=== PATIENT | female | born 1970 | race Caucasian/White ===

== ENCOUNTER 2022-12-18 12:50 | Outpatient (OUT) | payer MEDICARE, MEDICAID, SELFPAY ==
[2022-12-18 13:27] LABS: Basophils Percent Auto 0.7 % (0.2-2.0); Eosinophils Absolute Auto 0.2 10^3/uL (0.0-0.7); Eosinophils Percent Auto 3.6 % (0.9-7.0); Hematocrit 42.9 % (36.0-48.0); Hemoglobin 14.2 g/dL (12.0-16.0); Immature Granulocytes Abs Auto 0.01 10^3/uL (0.00-0.03); Immature Granulocytes Pct Auto 0.2 % (0.0-0.5); Lymphocytes Absolute Auto 1.6 10^3/uL (1.2-3.8); Lymphocytes Percent Auto 28.4 % (20.5-60.0); Mean Corpuscular HGB Conc 33.1 g/dL (29.9-35.2); Mean Corpuscular Hemoglobin 30.2 pg (26.7-34.0); Mean Corpuscular Volume 91.3 fL (81.0-99.0); Mean Platelet Volume 8.9 fL (9.5-13.5); Monocytes Absolute Auto 0.5 10^3/uL (0.3-0.8); Monocytes Percent Auto 9.1 % (1.7-12.0); Neutrophils Absolute Auto 3.2 10^3/uL (1.4-6.5); Platelet Count 298 10^3/uL (150-450); Red Cell Distribution Width 13.6 % (11.0-15.0); White Blood Count 5.5 10^3/uL (4.0-11.0)
[2022-12-18 13:58] LABS: Estimated Average Glucose 120 mg/dL; Glycohemoglobin A1C 5.8 % (4.5-6.2)
[2022-12-18 14:11] LABS: Alanine Aminotransferase 27 U/L (14-59); Albumin Level 3.6 g/dL (3.4-5.0); Alkaline Phosphatase 127 U/L (46-116); Anion Gap 9.4; Aspartate Amino Transferase 23 U/L (15-37); BUN Creatinine Ratio 11.4; Bilirubin Total 0.4 mg/dL (0.2-1.0); Calcium 9.4 mg/dL (8.5-10.1); Carbon Dioxide 28.5 mmol/L (21.0-32.0); Chloride 107 mmol/L (98-107); Chol HDL Ratio 3.4; Cholesterol 135 mg/dL (<=200); Estimated GFR (African America >60 (>=60); Estimated GFR (Non-African Ame >60 (>=60); Globulin 3.6 g/dL; Glucose 123 mg/dL (74-106); HDL Cholesterol 40 mg/dL (40-60); LDL Cholesterol Calculated 66.4 mg/dL; Potassium 3.9 mmol/L (3.5-5.1); Sodium 141 mmol/L (136-145); Thyroid Stimulating Hormone 1.416 uIU/mL (0.358-3.740); Total Protein 7.2 g/dL (6.4-8.2); Triglycerides 143 mg/dL (<=150); VLDL CHOLESTEROL 28.6 mg/dL
== END 2022-12-18 12:51 | disposition home or self-care (01) ==
LOC: LAB 12:56
PROVIDERS: PCP Family Medicine; Visit Provider Family Medicine
DX: E78.2 Mixed hyperlipidemia (principal); R73.09 Other abnormal glucose; D50.9 Iron deficiency anemia, unspecified; R53.83 Other fatigue
CPT/HCPCS: 36415; 80053; 80061; 82728; 83036; 84443; 85025

== ENCOUNTER 2023-03-18 13:52 | Emergency (ER) | payer MEDICARE, MEDICAID, SELFPAY ==
--- NOTE | 2023-03-18 13:57 | ECG_ITS ---
The [facility] Test Date: 2023-03-18 Pat Name: ALEXA FERNANDEZ Department: Room: - Gender: Female Camera Prototyping Engineer: : 1970 Requested By: BENSON ROMERO Order Number: [id number] Reading MD: ALICIA CUEVAS Measurements Intervals [place] Rate: 70 P: 60 HI: 170 QRS: 73 QRSD: 88 T: 52 QT: 400 QTc: 421 Interpretive Statements 1100 Sinus rhythm 3114 Cannot rule out anterior myocardial infarction, age undetermined 9150 abnormal ECG No previous ECG available for comparison Electronically Signed On 03-19-2023 7:13:35 EST by ALICIA CUEVAS
[2023-03-18 14:01] VITALS: BP 190/97; PULSE 70; RESP 18; TEMP 36.6; O2SAT 96; BMI 36.2
--- NOTE | 2023-03-18 14:04 | ED.CHESTPAI1 ---
HPI - Chest Pain General Chief Complaint: Chest Pain Stated Complaint: CHEST PRESSURE Time Seen by Provider: 03/18/23 13:57 History of Present Illness HPI narrative: Patient is a 52-year-old female who presents to the emergency department for the evaluation of intermittent chest pressure for over 2 to 3 weeks. She has a history of previous MA, coronary artery disease with 2 previous stents placed. She states she sees Dr. Melendez at [facility] for [facility] cardiology. She has an appointment tomorrow. She denies any new or different symptoms today, but when she went to see her primary care provider she states she was instructed to come to the ER. She does feel short of breath. She states she has a squeezing pain in the anterior sternum, it is mild at this time but occasionally becomes more severe. She has not had any fevers, chills, cough, congestion, vomiting, diarrhea. Related Data Allergies Allergy/AdvReac Type Severity Reaction Status Date / Time lisinopril AdvReac Intermediate Verified 03/18/23 14:01 Review of Systems ROS Constitutional Denies: fever or chills Ears, nose, mouth, and throat Denies: throat pain or nasal congestion Cardiovascular Reports: chest pain Respiratory Reports: shortness of breath; Denies: cough Gastrointestinal Denies: abdominal pain, nausea, vomiting or diarrhea Genitourinary Denies: painful urination Musculoskeletal Denies: back pain Integumentary/Breast Denies: rash Neurological Denies: headache PFSH PFSH Social History Smoking status: Never smoker Exam Narrative Exam Narrative: Gen.: Awake, alert, in no distress Head: Normocephalic, atraumatic ENT: Moist mucous membranes Respiratory: No respiratory distress, lungs clear bilaterally Cardio: Regular rate and rhythm Gastrointestinal: Abdomen is soft, nondistended and nontender to palpation Extremities: Moves extremities equally, no pedal edema Psych: Normal mood and affect Neuro: No focal neuro deficit Skin: Warm, dry, intact Constitutional Vital Signs, click to edit/add: Last Vital Signs Temp 97.8 F 03/18/23 14:01 Pulse 70 03/18/23 14:01 Resp 18 03/18/23 14:01 BP 162/90 H 03/18/23 14:34 Pulse Ox 96 03/18/23 14:01 O2 Del Method Room Air 03/18/23 14:01 Course Vital Signs Vital signs: Vital Signs Temperature 97.8 F 03/18/23 14:01 Pulse Rate 70 03/18/23 14:01 Respiratory Rate 18 03/18/23 14:01 Blood Pressure 190/97 H 03/18/23 14:01 Pulse Oximetry 96 03/18/23 14:01 Oxygen Delivery Method Room Air 03/18/23 14:01 Temperature 97.8 F 03/18/23 14:01 Pulse Rate 70 03/18/23 14:01 Respiratory Rate 18 03/18/23 14:01 Blood Pressure 162/90 H 03/18/23 14:34 Pulse Oximetry 96 03/18/23 14:01 Oxygen Delivery Method Room Air 03/18/23 14:01 MDM - Chest Pain MDM Narrative Medical decision making narrative: Patient was treated with aspirin and sublingual nitro in the ER, nitroglycerin improved her blood pressure but she did not have any change in the chest tightness. This has been ongoing intermittently since February. She had 2 normal troponins in the ER. I discussed the case with her waist fitter, Dr. Mack at [facility]. He recommended that the patient can be discharged home to follow-up tomorrow. Return to the emergency department if symptoms change or worsen. Patient reevaluated by attending physician prior to discharge. Medical Records Data Attestation: I reviewed the patient's medical records. Lab Data Attestation: I reviewed the patient's lab results. Labs: Lab Results 03/18/23 Range/Units 14:10 WBC 6.9 (4.0-11.0) 10^3/uL RBC 5.02 (4.20-5.40) 10^6/uL Hgb 14.7 (12.0-16.0) g/dL Hct 45.2 (36.0-48.0) % MCV 90.0 (81.0-99.0) fL MCH 29.3 (26.7-34.0) pg MCHC 32.5 (29.9-35.2) g/dL RDW 12.9 (11.0-15.0) % Plt Count 306 (150-450) 10^3/uL MPV 9.3 L (9.5-13.5) fL Neut % (Auto) 55.9 (43.0-75.0) % Lymph % (Auto) 28.7 (20.5-60.0) % Kleberg % (Auto) 10.6 (1.7-12.0) % Eos % (Auto) 4.1 (0.9-7.0) % Baso % (Auto) 0.6 (0.2-2.0) % Neut # (Auto) 3.9 (1.4-6.5) 10^3/uL Lymph # (Auto) 2.0 (1.2-3.8) 10^3/uL Kleberg # (Auto) 0.7 (0.3-0.8) 10^3/uL Eos # (Auto) 0.3 (0.0-0.7) 10^3/uL Baso # (Auto) 0.0 (0.0-0.1) 10^3/uL Abs Immat Gran (auto) 0.01 (0.00-0.03) 10^3/uL Imm/Tot Granulo (auto) 0.1 (0.0-0.5) % PT 9.7 (9.0-11.6) sec INR <0.93 Sodium 140 (136-145) mmol/L Potassium 3.4 L (3.5-5.1) mmol/L Chloride 105 (98-107) mmol/L Carbon Dioxide 26.7 (21.0-32.0) mmol/L Anion Gap 11.7 BUN 7.0 (7.0-18.0) mg/dL Creatinine 0.81 (0.55-1.02) mg/dL Est GFR ( Amer) >60 (>=60) Est GFR (Non-Af Amer) >60 (>=60) BUN/Creatinine Ratio 8.6 Glucose 122 H (74-106) mg/dL Calcium 9.1 (8.5-10.1) mg/dL Total Bilirubin 0.5 (0.2-1.0) mg/dL AST 13 L (15-37) U/L ALT 30 (14-59) U/L Alkaline Phosphatase 121 H (46-116) U/L Troponin I High Sens 6.0 (4.0-51.3) pg/mL NT-Pro-B Natriuret Pep 105.0 (<=900.0) pg/mL Total Protein 7.8 (6.4-8.2) g/dL Albumin 3.7 (3.4-5.0) g/dL Globulin 4.1 g/dL Albumin/Globulin Ratio 0.9 Imaging Data Chest x-ray: Attestation: I have reviewed the pertinent imaging results. Radiologist's impression: Procedure: XR chest 1V EXAMINATION: XR chest 1V HISTORY: Fever and bodyaches COMPARISON: None. TECHNIQUE: Portable chest FINDINGS: The lung parenchyma is free of consolidation or infiltrate. No pneumothorax or pleural effusion. The cardiac, mediastinal and hilar contours are normal. The visualized osseous structures exhibit no gross abnormality. IMPRESSION: No acute cardiopulmonary abnormality. Electronically authenticated by: WILLIE SEXTON Date: 03/18/2023 15:09 ECG Data Attestation: I personally reviewed and interpreted this ECG as follows: (Normal sinus rhythm at a rate of 70, no acute ST elevation or ectopy. EKG reviewed by attending physician) ECG interpretation date: 03/18/23 ECG interpretation time: 14:19 Heart Score History: Moderately Suspicious ECG: Normal Age: >45-<65 years Risk Factors: >3 Risk Factors/ HX of CAD:2 Troponin: <Normal Limit Total Heart Score Recommendations & Risks:: 4 Discharge Plan Discharge Chief Complaint: Chest Pain Clinical Impression: Chest pain Patient Disposition: Home, Self-Care Time of Disposition Decision: 16:16 Condition: Good Instructions: Chest Pain (ED) Additional Instructions: Follow-up with your waist fitter tomorrow as scheduled Stand Alone Forms: Portal Instructions Referrals: Analilia Young MD [Primary Care Provider] - 1 week
--- NOTE | 2023-03-18 14:15 | XR_ITS ---
The [address] [address] Patient Name: ALEXA FERNANDEZ MRN: [id number] date: 1970 Sex: F Assigned Patient Location: ED.MAIN Current Patient Location: ER Accession/Order Number: [id number] Exam Date: 03/18/2023 14:10 Report Date: 03/18/2023 15:07 At the request of: DEBBIE WAGNER Procedure: XR chest 1V EXAM: XR chest 1V HISTORY: Chest pain COMPARISON: None. TECHNIQUE: Single view of the chest FINDINGS: Heart size normal. No focal consolidation, pleural effusion, pulmonary congestion or pneumothorax. XR/XR chest 1V IMPRESSION: No acute findings. Electronically authenticated by: SAAD CRUZ Date: 03/18/2023 15:07
[2023-03-18] MEDS: ASPIRIN 81 MG TAB.CHEW 162 MG PO (14:31)
[2023-03-18] MEDS: NITROGLYCERIN 0.4 MG BOTTLE PO (14:32)
[2023-03-18 14:34] VITALS: BP 162/90
[2023-03-18 14:39] LABS: Basophils Percent Auto 0.6 % (0.2-2.0); Eosinophils Absolute Auto 0.3 10^3/uL (0.0-0.7); Eosinophils Percent Auto 4.1 % (0.9-7.0); Hematocrit 45.2 % (36.0-48.0); Hemoglobin 14.7 g/dL (12.0-16.0); Immature Granulocytes Abs Auto 0.01 10^3/uL (0.00-0.03); Immature Granulocytes Pct Auto 0.1 % (0.0-0.5); Lymphocytes Percent Auto 28.7 % (20.5-60.0); Mean Corpuscular HGB Conc 32.5 g/dL (29.9-35.2); Mean Corpuscular Hemoglobin 29.3 pg (26.7-34.0); Mean Platelet Volume 9.3 fL (9.5-13.5); Monocytes Absolute Auto 0.7 10^3/uL (0.3-0.8); Monocytes Percent Auto 10.6 % (1.7-12.0); Neutrophils Absolute Auto 3.9 10^3/uL (1.4-6.5); Neutrophils Percent Auto 55.9 % (43.0-75.0); Platelet Count 306 10^3/uL (150-450); Red Blood Count 5.02 10^6/uL (4.20-5.40); Red Cell Distribution Width 12.9 % (11.0-15.0); White Blood Count 6.9 10^3/uL (4.0-11.0)
[2023-03-18 15:00] LABS: Prothrombin Time 9.7 sec (9.0-11.6)
[2023-03-18 15:02] LABS: Alanine Aminotransferase 30 U/L (14-59); Albumin Globulin Ratio 0.9; Albumin Level 3.7 g/dL (3.4-5.0); Alkaline Phosphatase 121 U/L (46-116); Anion Gap 11.7; Aspartate Amino Transferase 13 U/L (15-37); BUN Creatinine Ratio 8.6; Bilirubin Total 0.5 mg/dL (0.2-1.0); Calcium 9.1 mg/dL (8.5-10.1); Carbon Dioxide 26.7 mmol/L (21.0-32.0); Chloride 105 mmol/L (98-107); Estimated GFR (African America >60 (>=60); Estimated GFR (Non-African Ame >60 (>=60); Globulin 4.1 g/dL; Glucose 122 mg/dL (74-106); Potassium 3.4 mmol/L (3.5-5.1); Sodium 140 mmol/L (136-145); Total Protein 7.8 g/dL (6.4-8.2)
[2023-03-18 15:17] LABS: INR <0.93
[2023-03-18 16:12] LABS: Troponin I High Sensitivity 7.2 pg/mL (4.0-51.3)
== END 2023-03-18 16:29 | disposition home or self-care (01) ==
PROVIDERS: Physician Assistant; Emergency Provider Emergency Medicine Emergency Medical Services; PCP Family Medicine
DX: R07.9 Chest pain, unspecified (principal); I25.2 Old myocardial infarction; Z95.5 Presence of coronary angioplasty implant and graft; I25.10 Atherosclerotic heart disease of native coronary artery without angina pectoris; R06.02 Shortness of breath
CPT/HCPCS: 36415; 71045; 80053; 83880; 84484; 85025; 85610; 93005; 99285

== ENCOUNTER 2023-08-31 09:22 | Outpatient (OUT) | payer MEDICARE, MEDICAID, SELFPAY ==
--- NOTE | 2023-08-31 09:41 | XR_ITS ---
The [place] [id number] Patient Name: ALEXA FERNANDEZ MRN: [id number] date: 1970 Sex: F Assigned Patient Location: LAB Current Patient Location: LAB Accession/Order Number: [id number] Exam Date: 08/31/2023 09:45 Report Date: 08/31/2023 12:27 At the request of: BENSON ROMERO Procedure: XR knee LT 4V PROCEDURE: XR knee LT 4V HISTORY: M25.562 Left knee pain ; numbness lateral aspect of kidney for 6 months; no known injury COMPARISON: None. FINDINGS: BONES:No fracture, acute abnormality, or significant arthropathy. SOFT TISSUES:No visible soft tissue swelling. EFFUSION:None visible. OTHER: Negative. XR/XR knee LT 4V IMPRESSION: 1. Normal examination. Electronically authenticated by: JUSTUS HAMILTON Date: 08/31/2023 12:27
[2023-08-31 09:46] LABS: Basophils Percent Auto 0.6 % (0.2-2.0); Eosinophils Absolute Auto 0.2 10^3/uL (0.0-0.7); Eosinophils Percent Auto 3.5 % (0.9-7.0); Hematocrit 42.2 % (36.0-48.0); Hemoglobin 13.6 g/dL (12.0-16.0); Immature Granulocytes Abs Auto 0.01 10^3/uL (0.00-0.03); Immature Granulocytes Pct Auto 0.2 % (0.0-0.5); Lymphocytes Absolute Auto 1.4 10^3/uL (1.2-3.8); Lymphocytes Percent Auto 26.3 % (20.5-60.0); Mean Corpuscular HGB Conc 32.2 g/dL (29.9-35.2); Mean Corpuscular Hemoglobin 29.1 pg (26.7-34.0); Mean Corpuscular Volume 90.2 fL (81.0-99.0); Mean Platelet Volume 9.1 fL (9.5-13.5); Monocytes Absolute Auto 0.5 10^3/uL (0.3-0.8); Monocytes Percent Auto 9.9 % (1.7-12.0); Neutrophils Absolute Auto 3.1 10^3/uL (1.4-6.5); Neutrophils Percent Auto 59.5 % (43.0-75.0); Platelet Count 270 10^3/uL (150-450); Red Blood Count 4.68 10^6/uL (4.20-5.40); Red Cell Distribution Width 13.5 % (11.0-15.0); White Blood Count 5.1 10^3/uL (4.0-11.0)
[2023-08-31 10:44] LABS: Alanine Aminotransferase 28 U/L (14-59); Albumin Globulin Ratio 0.9; Albumin Level 3.4 g/dL (3.4-5.0); Alkaline Phosphatase 120 U/L (46-116); Anion Gap 10.3; Aspartate Amino Transferase 18 U/L (15-37); BUN Creatinine Ratio 11.8; Bilirubin Total 0.4 mg/dL (0.2-1.0); Carbon Dioxide 28.5 mmol/L (21.0-32.0); Chloride 108 mmol/L (98-107); Chol HDL Ratio 3.1; Cholesterol 135 mg/dL (<=200); Estimated GFR (African America >60 (>=60); Estimated GFR (Non-African Ame >60 (>=60); Globulin 3.7 g/dL; Glucose 125 mg/dL (74-106); HDL Cholesterol 43 mg/dL (40-60); LDL Cholesterol Calculated 65.8 mg/dL; Potassium 3.8 mmol/L (3.5-5.1); Sodium 143 mmol/L (136-145); Thyroid Stimulating Hormone 1.947 uIU/mL (0.358-3.740); Total Protein 7.1 g/dL (6.4-8.2); Triglycerides 131 mg/dL (<=150); VLDL CHOLESTEROL 26.2 mg/dL
== END 2023-08-31 09:23 | disposition home or self-care (01) ==
LOC: LAB 09:23
PROVIDERS: PCP Family Medicine; Visit Provider Family Medicine
DX: R53.83 Other fatigue (principal); I10 Essential (primary) hypertension; E78.00 Pure hypercholesterolemia, unspecified; M25.562 Pain in left knee
CPT/HCPCS: 36415; 73564; 80053; 80061; 84443; 85025

== ENCOUNTER 2024-03-14 10:33 | Outpatient (OUT) | payer MEDICARE, MEDICAID, SELFPAY ==
[2024-03-14 11:00] LABS: Basophils Percent Auto 0.7 % (0.2-2.0); Eosinophils Absolute Auto 0.2 10^3/uL (0.0-0.7); Eosinophils Percent Auto 3.6 % (0.9-7.0); Hematocrit 46.8 % (36.0-48.0); Hemoglobin 15.4 g/dL (12.0-16.0); Immature Granulocytes Abs Auto 0.01 10^3/uL (0.00-0.03); Immature Granulocytes Pct Auto 0.2 % (0.0-0.5); Lymphocytes Absolute Auto 1.7 10^3/uL (1.2-3.8); Lymphocytes Percent Auto 31.3 % (20.5-60.0); Mean Corpuscular HGB Conc 32.9 g/dL (29.9-35.2); Mean Corpuscular Hemoglobin 30.1 pg (26.7-34.0); Mean Corpuscular Volume 91.6 fL (81.0-99.0); Monocytes Absolute Auto 0.6 10^3/uL (0.3-0.8); Neutrophils Percent Auto 54.2 % (43.0-75.0); Platelet Count 307 10^3/uL (150-450); Red Blood Count 5.11 10^6/uL (4.20-5.40); Red Cell Distribution Width 13.2 % (11.0-15.0); White Blood Count 5.5 10^3/uL (4.0-11.0)
[2024-03-14 11:09] LABS: Creatinine Urine Random 505.77 mg/dL (20.00-300.00); Microalbum Creatinine Ratio Ur 4.9 mg/g (0.0-29.9); Microalbumin Urine Random 2.5 mg/dL (<=30.0)
[2024-03-14 11:13] LABS: Estimated Average Glucose 134 mg/dL; Glycohemoglobin A1C 6.3 % (4.5-6.2)
[2024-03-14 12:06] LABS: Alanine Aminotransferase 27 U/L (14-59); Albumin Globulin Ratio 0.9; Albumin Level 3.8 g/dL (3.4-5.0); Alkaline Phosphatase 136 U/L (46-116); Anion Gap 9.4; Aspartate Amino Transferase 19 U/L (15-37); BUN Creatinine Ratio 9.3; Bilirubin Total 0.8 mg/dL (0.2-1.0); Calcium 9.6 mg/dL (8.5-10.1); Chloride 107 mmol/L (98-107); Estimated GFR (African America >60 (>=60 mL/min/1.73m^2); Estimated GFR (Non-African Ame 54 (>=60 mL/min/1.73m^2); Glucose 129 mg/dL (74-106); Potassium 3.4 mmol/L (3.5-5.1); Sodium 145 mmol/L (136-145); Total Protein 7.8 g/dL (6.4-8.2)
== END 2024-03-14 10:34 | disposition home or self-care (01) ==
LOC: LAB 10:35
PROVIDERS: PCP Family Medicine; Visit Provider Family Medicine
DX: R73.09 Other abnormal glucose (principal); R14.0 Abdominal distension (gaseous); I10 Essential (primary) hypertension
CPT/HCPCS: 36415; 80053; 82043; 82570; 83036; 84443; 85025

== ENCOUNTER 2024-12-08 11:32 | Emergency (ER) | payer MEDICARE, MEDICAID, SELFPAY ==
--- OUTSIDE RECORDS SUMMARY | 2024-12-08 11:50 | XMS_ITS | Clinical Summary ---
Author Organization [facility] Address [address] [place] [address] Care Team Providers Care Supervisor Braiding Name Role Phone Analilia Young MD Primary Care Provider [phone] Social History Tobacco Use Types Packs/Day Years Used Date Smoking Tobacco: Never Assessed Comments Unknown Sex and Gender Information Value Date Recorded Sex Assigned at Not on file Legal Sex Female 11:40 PM EDT Gender Identity Not on file Sexual Orientation Not on file Last Filed Vital Signs Vital Sign Reading Time Taken Comments Blood Pressure 192/110 12/17/2021 12:00 PM EDT Pulse - - Temperature - - Respiratory Rate - - Oxygen Saturation - - Inhaled Oxygen Concentration - - Weight 91.2 kg (201 lb) 12/17/2021 12:00 PM EDT Height 162.6 cm (5' 4 ) 12/17/2021 12:00 PM EDT Body Mass Index 34.5 12/17/2021 12:00 PM EDT Plan of Treatment Health Maintenance Due Date Last Done Comments CT Colonography 1972 Colonoscopy 1972 Colorectal Cancer Screening 1970 FIT-DNA 1972 FIT 1972 FOBT 1972 Sigmoidoscopy 1972 Pap Smear 1993 Cervical Cancer Screening 2002 HPV/Cotest 2002 Mammogram 2012 Influenza Vaccine (#1) 2024 03/01/2023 Insurance MEDICARE Care Teams Supervisor Braiding Relationship Specialty Start Date End Date Analilia Young MD PCP - General Family Medicine 03/07/24
--- OUTSIDE RECORDS SUMMARY | 2024-12-08 11:50 | XMS_ITS | Encounter Summary ---
Author Organization [facility] Address [address] [place] [address] Phone Care Team Providers Care Senior Net Programmer Name Role Phone Susanne Keen MD Primary Care Provider [phone] Encounter Details Date Type Department Care Team (Late st Contact Info) Description 10/21/2008 Scanned Document [facility] [address] [place] [id number] Scanning, Generic Provider Social History Tobacco Use Types Packs/Day Years Used Date Smoking Tobacco: Never Assessed Comments Unknown Sex and Gender Information Value Date Recorded Sex Assigned at Not on file Legal Sex Female 2:25 PM EST Gender Identity Not on file Sexual Orientation Not on file documented as of this encounter Plan of Treatment Upcoming Encounters Date Type Department Care Team (Late st Contact Info) Description 12/28/2024 9:45 AM EDT Office Visit [facility] Medical Office [address] [place] [address] [place] [address] [facility] [address], [facility] [address] [place] [address] documented as of this encounter Visit Diagnoses Not on filedocumented in this encounter Care Teams Senior Net Programmer Relationship Specialty Start Date End Date Susanne Keen MD [address] [facility] Susanne Keen MD [facility] [place] [address] PCP - General 04/05/99 documented as of this encounter
--- OUTSIDE RECORDS SUMMARY | 2024-12-08 11:50 | XMS_ITS | Patient Health Record ---
Author Organization [facility] [place] Address [address] [place] [address] Care Team Providers Care Hotel General Manager Name Role Phone Susanne Keen MD Primary Care Provider Unavailabl e Reason For Referral No Information Medications Medication SIG (Take, Route, Frequency, Duration) Notes Start Date End Date Status Aspirin 81 MG 1 tablet Orally Daily Active cloNIDine HCl 0.1 MG 1 tablet Orally Onc e a day Active Furosemide 20 MG 1 tablet Orally Once a day Active Metoprolol Tartrate 100 MG 1 tablet with food Orally Twice a day Active NIFEdipine ER Osmotic Release 90 MG 1 tablet Orally BID Active Atorvastatin Calcium 20 MG 1 tablet Oral ly at bedtime Active Clopidogrel Bisulfate 75 MG 1 tablet Ora lly Once a day Active Klor-Con 10 10 MEQ 1 tablet with food Orally Daily Active Citalopram Hydrobromide 20 MG 1 tablet Orally Once a day Active Losartan Potassium 100 MG 1 tablet Orall y Once a day Active Ferrous Sulfate 324 (65 Fe) MG 1 tablet Orally Daily Active Spironolactone 25 MG 1 tablet Orally Onc e a day Active cloNIDine 0.2 MG/24HR 1 patch to skin Transdermal Active Folic Acid 1 MG 1 tablet Orally Once a day Active Vitamin D3 15592 UNIT 1 tablet Orally On ce a day Active Social History Tobacco Use: Social History Observation Description Date Details (start date - stop date) Never Smoker NA - NA Tobacco Use/Smoking Question Answer Notes Patient is a nonsmoker Alcohol Screen (Audit-C) Question Answer Notes Did you have a drink containing alcohol in the p ast year? No Points 0 Interpretation Negative Problems Problem Type SNOMED Code ICD Code Onset Dates Problem Status W/U Status Risk Notes Problem Right ovarian cyst ([id number] 59973) Right ovarian cyst (N83.201) Active confirmed Plan Of Treatment No Information Insurance Providers Payer Name Payer Address Payer Phone Subscriber Number Group Number Insured Name Patient Relationship to Insured Coverage Start Date Coverage End Date [employer] [place] [address] [place], [place] [id number] Nel Giron Self - patient is the insured 9 Medical (General) History Medical History History ICD Code HTN Anemia History of Twin gestation Depression & Anxiety Surgical History Surgery Date(Month/Year) Colonoscopy 08/2015 Cholecystectomy 07/2014 NASRA with Ovarian Preservation 10/2016 Tubal Ligation
--- OUTSIDE RECORDS SUMMARY | 2024-12-08 11:50 | XMS_ITS | Patient Health Record ---
Author Organization [facility] Address [address] [place] [address] Care Team Providers Care Hospitality Specialist Name Role Phone Dr. Santos Ramon Primary Care Provider [phone] Allergies Allergen (clinical drug ingredient) Drug/Non Drug Allergy documented on EMR Reaction Allergy Type Onset Date Status lisinopril Lisinopril Unknown Drug Allergy Activ e Reason For Referral No Information Medications Medication SIG (Take, Route, Frequency, Duration) Notes Start Date End Date Status Ibuprofen 800 MG 1 tablet with food o r milk as needed Orally Three times a day 12/08/2024 Active Amoxicillin 875 MG 1 tablet Orally Twic e a day; Duration: 5 day(s) 12/08/2024 12/13/2024 Active Ibuprofen 800 MG 1 tablet with food o r milk as needed Orally Three times a day 10/02/2021 Unknown Plavix 75 MG 1 tablet Orally Once a day Unknown Atenolol 25 MG 1 tablet Orally Once a day Unknown cloNIDine 0.1 MG/24HR 1 patch to skin Transdermal Unknown Valsartan 4 MG/ML 5 mL Orally Twice a day Unknown Encounters Encounter Location Date Provider Diagnosis [address] [address] 12/02/2024 Santos Ramon Encounter for den denis examination and cleaning with abnormal findings Z01.21 ; Other dental procedure status Z98.818 ; Disturbances in tooth eruption K00.6 ; Acute gingivitis, plaque induced K05.00 and Dental caries on pit and fissure surface penetrating into dentin K02.52 [facility] [address] [place] [address] 12/08/2024 Santos Ramon Cracked tooth K03 .81 Assessments Encounter Date Diagnosis (ICD Code) Assessment Notes Treatment Notes Treatment Clinical Notes Section Notes 12/02/2024 Encounter for dental examination and cleaning with abnormal findings (ICD-10 - Z01.21) 12/08/2024 Cracked tooth (ICD-10 - K03.81) 12/02/2024 Other dental procedure status (ICD-10 - Z98.818) 12/02/2024 Disturbances in tooth eruption (ICD-10 - K00.6) 12/02/2024 Acute gingivitis, plaque induced (ICD-10 - K05.00) 12/02/2024 Dental caries on pit and fissure surface penetrating into dentin (ICD-10 - K02.52) Plan Of Treatment Next Appt Details Provider Name:Santos Ramon, 0 04/18/2025 11:00:00 AM, [address], [place], [address], Provider Name:Claudia Anna, 04/23/2025 10:30:00 AM, [address], [place], [address], Insurance Providers Payer Name Payer Address Payer Phone Subscriber Number Group Number Insured Name Patient Relationship to Insured Coverage Start Date Coverage End Date [employer] [address] [place] [phone] [id number] ALEXA CHANEL Self - patient is the insured
--- OUTSIDE RECORDS SUMMARY | 2024-12-08 11:50 | XMS_ITS | Encounter Summary ---
Author Organization [facility] Address [address] [place] [address] Phone Care Team Providers Care Rn Circulating Name Role Phone Susanne Keen MD Primary Care Provider Encounter Details Date Type Department Care Team (Late st Contact Info) Description 09/16/2020 Orders Only [facility] [address] [place] [address] Conversion, Onbase Social History Tobacco Use Types Packs/Day Years [...] Description 12/28/2024 9:45 AM EDT Office Visit [facility] Medical Office Building [address] [place] [address] [address] [place] [address] [place] [address] [facility] [address], [facility] [address] [place], [place] [id number] Scheduled Orders Name Type Priority Associated Diagnoses Orde r Schedule OUTSIDE LAB SCAN Lab Ordered: 09/16/2020 documented as of this encounter Visit Diagnoses Not on filedocumented in this encounter Care Teams Rn Circulating Relationship Specialty Start Date End Date Susanne Keen MD [address] [facility] [place] [address] PCP - General 04/05/99 documented as of this encounter
--- OUTSIDE RECORDS SUMMARY | 2024-12-08 11:50 | XMS_ITS | Encounter Summary ---
Author Organization [facility] Address [address] [place] [address] Phone Care Team Providers Care Veneer Stock Layer Name Role Phone Susanne Keen MD Primary Care Provider [phone] Encounter Details Date Type Department Care Team (Late st Contact Info) Description 05/02/2009 Scanned Document [facility] [address] [place] [phone] Scanning, Generic Provider Social History Tobacco Use [...] 12/28/2024 9:45 AM EDT Office Visit [facility] Medical Office [address] [place] [address] [place] [address] [facility] [address], [facility] [address] [place] [address] documented as of this encounter Visit Diagnoses Not on filedocumented in this encounter Care Teams Veneer Stock Layer Relationship Specialty Start Date End Date Susanne Keen MD [address] [facility] Susanne Keen MD [facility] [place] [address] PCP - General 04/05/99 documented as of this encounter
[2024-12-08 11:51] VITALS: BP 213/106; PULSE 72; TEMP 37.4; O2SAT 97; BMI 34.3
--- OUTSIDE RECORDS SUMMARY | 2024-12-08 11:51 | XMS_ITS | Encounter Summary ---
Author Organization [facility] Address [address] [place] [address] Care Team Providers Care Casket Trimmer Name Role Phone Unavailable Primary Care Provider Unavailabl e Reason for Visit * Reason Comments Med Refill Encounter Details Date Type Department Care Team (Late st Contact Info) Description 07/27/2022 Refill [facility] [address] [place] [address] Adalid Keyes MD [address] [facility] [place] [address] Social History Tobacco Use Types Packs/Day Years Used Date Smoking Tobacco: Never Assessed Comments Unknown Sex and Gender Information Value Date Recorded Sex Assigned at Not on file Legal Sex Female 11:32 PM EDT Gender Identity Not on file Sexual Orientation Not on file documented as of this encounter Plan of Treatment Not on file documented as of this encounter Visit Diagnoses Not on filedocumented in this encounter
--- OUTSIDE RECORDS SUMMARY | 2024-12-08 11:51 | XMS_ITS | Encounter Summary ---
Author Organization [facility] Address [address] [place] [address] Care Team Providers Care Restorer Lace And Textiles Name Role Phone Unavailable Primary Care Provider Unavailabl e Reason for Visit * Reason Comments Med Refill Encounter Details Date Type Department Care Team (Late st Contact Info) Description 06/17/2022 Refill [facility] [address] [place] [address] Adalid Keyes MD [address] [facility] [address] [facility] [place] [address] Essential (primary) hypertension Social History Tobacco Use Types Packs/Day Years Used Date Smoking Tobacco: Never Assessed Comments Unknown Sex and Gender Information Value Date Recorded Sex Assigned at Not on file Legal Sex Female 11:32 PM EDT Gender Identity Not on file Sexual Orientation Not on file documented as of this encounter Plan of Treatment Not on file documented as of this encounter Visit Diagnoses Diagnosis Essential (primary) hypertension Unspecified essential hypertension documented in this encounter
--- OUTSIDE RECORDS SUMMARY | 2024-12-08 11:51 | XMS_ITS | Encounter Summary ---
Author Organization [facility] Address [address] [place] [address] Phone Care Team Providers Care System Trainer Name Role Phone Susanne Keen MD Primary Care Provider [phone] Encounter Details Date Type Department Care Team (Late Contact Info) Description 08/15/2021 Orders Only [facility] [address] [place] [address] Conversion, Onbase Social History Tobacco Use Types [...] Description 12/28/2024 9:45 AM EDT Office Visit [facility] Medical Office Building [address] [place] [address] [address] [place] [address] [place] [address], [facility] [address] [place], [place] [phone] Scheduled Orders Name Type Priority Associated Diagnoses Orde r Schedule OUTSIDE LAB SCAN Lab Ordered: 08/15/2021 OUTSIDE LAB SCAN Lab Ordered: 08/15/2021 documented as of this encounter Visit Diagnoses Not on filedocumented in this encounter Care Teams System Trainer Relationship Specialty Start Date End Date Susanne Keen MD [address] [facility] [place] [address] PCP - General 04/05/99 documented as of this encounter
--- OUTSIDE RECORDS SUMMARY | 2024-12-08 11:51 | XMS_ITS | Encounter Summary ---
Author Organization [facility] Address [address] [place] [address] Phone Care Team Providers Care Dramatic Director Name Role Phone Susanne Keen MD Primary Care Provider [phone] Encounter Details Date Type Department Care Team (Late Contact Info) Description 08/25/2021 Orders Only [facility] [address] [place] [address] Conversion, Onbase Social History Tobacco Use Types [...] 9:45 AM EDT Office Visit [facility] Medical Office Building [address] [place] [address] [address] [place] [address] [place] [address] [facility] [address], [facility] [address] [place], [place] [phone] Scheduled Orders Name Type Priority Associated Diagnoses Orde r Schedule OUTSIDE LAB SCAN Lab Ordered: 08/25/2021 OUTSIDE LAB SCAN Lab Ordered: 08/25/2021 documented as of this encounter Visit Diagnoses Not on filedocumented in this encounter Care Teams Dramatic Director Relationship Specialty Start Date End Date Susanne Keen MD [address] [facility] [place] [address] PCP - General 04/05/99 documented as of this encounter
--- OUTSIDE RECORDS SUMMARY | 2024-12-08 11:51 | XMS_ITS | Clinical Summary ---
Author Organization [facility] Address [address] [place] [address] Care Team Providers Care Resource Management Specialist Name Role Phone Unavailable Primary Care Provider Unavailabl e Social History Tobacco Use Types Packs/Day Years Used Date Smoking Tobacco: Never Assessed [place] Safety & Environment Answer Date Rec orded Fear of Current or Ex-Partner Not on file Emotionally Abused Not on file 05/27/2023 Physically Abused Not on file 05/27/2023 Sexually Abused Not on file 05/27/2023 Physically or Sexually Abused Not on file Comments Unknown Sex and Gender Information Value Date Recorded Sex Assigned at Not on file Legal Sex Female 11:32 PM EDT Gender Identity Not on file Sexual Orientation Not on file Last Filed Vital Signs Vital Sign Reading Time Taken Comments Blood Pressure 143/86 11/06/2020 3:15 PM EDT Pulse 83 04/29/2020 4:45 PM EST Temperature - - Respiratory Rate - - Oxygen Saturation 97% 11/06/2020 3:16 PM EDT Inhaled Oxygen Concentration - - Weight 95.3 kg (210 lb) 11/06/2020 3:15 PM EDT Height 162.6 cm (5' 4 ) 11/06/2020 3:11 PM EDT Body Mass Index 36.05 11/06/2020 3:11 PM EDT Plan of Treatment Health Maintenance Due Date Last Done Comments CT Colonography 1972 Colonoscopy 1972 Colorectal Cancer Screening 1972 FIT-DNA 1972 FIT 1972 FOBT 1972 Medicare Annual Wellness (AWV) 1972 Sigmoidoscopy 1972 Depression Screening 1984 Hepatitis B Vaccines (1 of 3 - 19+ 3-dose series) 1991 Pap Smear 1993 Adult Tetanus 1994 Cervical Cancer Screening 2002 HPV/Cotest 2002 Mammogram 2012 Zoster Vaccines (1 of 2) 2022 Influenza Vaccine (#1) 2024 HIB Vaccines Aged Out No longer eligi ble based on patient's age to complete this topic HPV Vaccines Aged Out No longer eligi ble based on patient's age to complete this topic IPV Vaccines Aged Out No longer eligi ble based on patient's age to complete this topic Meningococcal B Vaccine Aged Out No l onger eligible based on patient's age to complete this topic Meningococcal Vaccine Aged Out No cassandra franklin eligible based on patient's age to complete this topic Pneumococcal Vaccine: Pediat rics (0 to 5 Years) and At-Risk Patients (6 to 64 Years) Aged Out No longer eligible b ased on patient's age to complete this topic Rotavirus Vaccines Aged Out No longer eligible based on patient's age to complete this topic Insurance MEDICARE MEDICAID [id number]
--- OUTSIDE RECORDS SUMMARY | 2024-12-08 11:51 | XMS_ITS | Clinical Summary ---
Author Organization [facility] Address [address] [place] [address] Phone Care Team Providers Care Solid Waste Analyst Name Role Phone Susanne Keen MD Primary Care Provider Social History Tobacco Use Types Packs/Day Years Used Date Smoking Tobacco: Never Assessed Comments Unknown Sex and Gender Information Value Date Recorded Sex Assigned at Not on file Legal Sex Female 2:25 PM EST Gender Identity Not on file Sexual Orientation Not on file Last Filed Vital Signs Vital Sign Reading Time Taken Comments Blood Pressure 140/98 03/19/2021 9:13 AM EST Pulse 74 03/19/2021 8:57 AM EST Temperature - - Respiratory Rate - - Oxygen Saturation - - Inhaled Oxygen Concentration - - Weight 96.2 kg (212 lb) 03/19/2021 8:57 AM EST Height 162.6 cm (5' 4 ) 03/19/2021 8:57 AM EST Body Mass Index 36.39 03/19/2021 8:57 AM EST Plan of Treatment Upcoming Encounters Date Type Department Care Team (Late st Contact Info) Description 12/28/2024 9:45 AM EDT Office Visit [facility] Medical Office Building [address] [place] [address] [address] [place] [id number] [place] [address] [facility] [address] [employer], [place] [id number] Health Maintenance Due Date Last Done Comments CT Colonography 1972 Colonoscopy 1972 Colorectal Cancer Screening 1972 FIT-DNA (Cologuard) 1972 FIT 1972 HIV Screening 1972 Lipid Panel 1972 Medicare Annual Wellness Vis it (AWV) 1972 Sigmoidoscopy 1972 MMR Vaccines (1 of 1 - Stand ovidio series) 1973 Diabetes Screening 1990 Hepatitis C Screening 1990 Hepatitis B Vaccines (1 of 3 - 19+ 3-dose series) 1991 Cervical Cancer Screening 1993 HPV/Cotest 1993 Pap Smear 1993 DTaP/Tdap/Td Vaccines (1 - Tdap) 1994 Mammogram 2012 Pneumococcal Vaccine (1 of 1 - PCV) 2022 Zoster Vaccines (1 of 2) 2022 COVID-19 Vaccine (1 - 2023-2 5 season) 2024 Influenza Vaccine (#1) 2024 HIB Vaccines Aged Out No longer eligi ble based on patient's age to complete this topic HPV Vaccines Aged Out No longer eligi ble based on patient's age to complete this topic Hepatitis A Vaccines Aged Out No long er eligible based on patient's age to complete this topic IPV Vaccines Aged Out No longer eligi ble based on patient's age to complete this topic Meningococcal Vaccine Aged Out No cassandra franklin eligible based on patient's age to complete this topic Rotavirus Vaccines Aged Out No longer eligible based on patient's age to complete this topic Insurance MEDICARE PART A AND B MEDICAID Care Teams Solid Waste Analyst Relationship Specialty Start Date End Date Susanne Keen MD [address] Susanne [facility] [place] [place] [address] PCP - General 04/05/99
--- OUTSIDE RECORDS SUMMARY | 2024-12-08 11:51 | XMS_ITS | Encounter Summary ---
Author Organization [facility] Address [address] [place] [address] Phone Care Team Providers Care Grain Shipper Name Role Phone Susanne Keen MD Primary Care Provider [phone] Encounter Details Date Type Department Care Team (Late st Contact Info) Description 01/26/2008 Scanned Document [facility] [address] [place] [id number] Scanning, Generic Provider Social History Tobacco Use [...] Description 12/28/2024 9:45 AM EDT Office Visit [facility] Medical Office [address] [place] [address] [place] [address] [facility] [address], [facility] [address] [place] [address] documented as of this encounter Visit Diagnoses Not on filedocumented in this encounter Care Teams Grain Shipper Relationship Specialty Start Date End Date Susanne Keen MD [address] [facility] Susanne Keen MD [facility] [place] [place] [address] PCP - General 04/05/99 documented as of this encounter
--- OUTSIDE RECORDS SUMMARY | 2024-12-08 11:56 | XMS_ITS | CCD ---
Author Organization [facility] Care Team Providers Care Homebirth Midwife Name Role Phone DARIUSZ KEEN Primary Care Unavailable UNKNOWN, PROVIDER Attending Unavailable UNKNOWN, PROVIDER Admitting Unavailable KEEN, DARIUSZ Referring Unavailable KEEN, DARIUSZ Referring Unavailable KEEN, DARIUSZ Primary Care Unavailable ERIN HILARIO Attending Unavailable GURPREET PASTOR Admitting Unavailable [facility] Procedure Practitioner Unavailab ESA Cosme Surgeon Unavailable [facility] Procedure Practitioner Unavailab YOCASTA Phillip Surgeon Unavailable Dariusz Keen Unavailable Unavailable Unavailable DARIUSZ KEEN Primary Care Physician [phone] KEEN ., DR DARIUSZ West Attending Unavailable KEEN ., DR DARIUSZ West Consulting Unavailable KEEN ., DR DARIUSZ West Primary Care Unavailable KEEN ., DR DARIUSZ West Admitting Unavailable KEEN ., DR DARIUSZ West Primary Care Unavailable KEEN ., DR DARIUSZ West Attending Unavailable KEEN ., DR DARIUSZ West Admitting Unavailable KEEN ., DR DARIUSZ West Consulting Unavailable MARIA L CURTIS Consulting Unavailable KEEN ., DR DARIUSZ West Primary Care Unavailable KEEN ., DR DARIUSZ West Attending Unavailable KEEN ., DR DARIUSZ West Admitting Unavailable KEEN ., DR DARIUSZ West Consulting Unavailable KEEN ., DR DARIUSZ West Attending Unavailable KEEN ., DR DARIUSZ West Admitting Unavailable KEEN ., DR DARIUSZ West Primary Care Unavailable ROBI ELDER Admitting Unavailable ROBI ELDER Attending Unavailable KEEN ., DR DARIUSZ West Primary Care Unavailable ROBI ELDER Consulting Unavailable JOVANA, DR ANIKA Grossman Attending Unavailable KEEN ., DR DARIUSZ West Primary Care Unavailable JOVAAN, DR ANIKA Grossman Consulting Unavailable DR ANIKA WHALEY Admitting Unavailable KEEN ., DR DARIUSZ West Attending Unavailable KEEN ., DR DARIUSZ West Admitting Unavailable KEEN ., DR DARIUSZ West Consulting Unavailable KEEN ., DR DARIUSZ West Primary Care Unavailable KEEN ., DR DARIUSZ West Attending Unavailable KEEN ., DR DARIUSZ West Consulting Unavailable KEEN ., DR DARIUSZ West Primary Care Unavailable KEEN ., DR DARIUSZ West Admitting Unavailable KEEN ., DR DARIUSZ West Attending Unavailable KEEN ., DR DARIUSZ West Primary Care Unavailable KEEN ., DR DARIUSZ West Consulting Unavailable KEEN ., DR DARIUSZ West Admitting Unavailable NONE, XXXX Primary Care Physician Unavailab Benson Bennett Unavailable BENSON ROMERO Primary Care Physician [phone] NONE, XXXX Referring Unavailable Jairo Contreras Attending Unavaila ble NONE, XXXX Referring Unavailable Jairo Contreras Admitting Unavaila ble Jairo Contreras Attending Unavaila ble RAINE Velázquez Attending Unavailable NONE, XXXX Referring Unavailable Jairo Contreras Attending Unavaila ble NONE, XXXX Referring Unavailable Jairo Contreras Referring Unavaila ble Jairo Contreras Admitting Unavaila ble Jairo Contreras Attending Unavaila ble NONE, XXXX Referring Unavailable Jairo Contreras Attending Unavaila vitaliy Allergies Allergy Classification Reported Allergen(s) Allergy Type Date of Onset Reaction(s) Facility Amino Acids (1 source) Amino Acids Drug Allergy 0 The [facility] Repository (17 sources) Lisinopril; Translations: [Lisinopril TABS] Drug Allergy Cough, couging [facility] (1 source) Adhesive bandage Drug allergy (disorder) 6 [facility] Repository (2 sources) Amino Acids; Translations: [lisinopril] Drug Allergy [facility] Repository (6 sources) hydrALAZINE; Translations: [hydralazine] Drug Allergy Unknown (qualifier value) [facility] (6 sources) topiramate; Translations: [topiramate] Drug Allergy Unknown (qualifier value) [facility] Medications Current Medications Medication Drug Class(es) Dates Sig (Normalized) Sig (Original) amitriptyline hydrochloride 75 mg oral tablet (20 sources) Tricyclic Antidepressant Start: 12-27-2020 take 1 tablet by mouth once daily Amitriptyline 75 mg tablet Active 75 MG PO Daily December 26, 2020 11:00pm aspirin 81 mg delayed release oral tablet (20 sources) Platelet Aggregation Inhibitor, Nonsteroidal Anti-inflammatory Drug Start: 02-07-2024 End: 05-07-2024 take 1 tablet by mouth once daily Aspirin 81 mg tablet,delayed release (DR/EC) Active 0 .ROUTE .COMPLEX May 07, 2024 7:23am TAKE 1 TABLET BY MOUTH EVERY DAY Start: 12-27-2020 End: 02-07-2024 take 1 tablet by mouth once daily Aspirin 81 mg tablet,delayed release (DR/EC) Discontinued 81 MG PO Daily December 26, 2020 11:00pm February 07, 2024 4:39pm atorvastatin 40 mg oral tablet (20 sources) HMG-CoA Reductase Inhibitor Start: 12-27-2020 take 1 tablet by mouth once daily Atorvastatin 40 mg tablet Active 40 MG PO Daily December 26, 2020 11:00pm benzonatate 200 mg oral capsule (1 source) Non-narcotic Antitussive Start: 05-17-2024 Benzonatate 200 mg capsule Active 200 MG PO 2-3 TIMES PER DAY as needed for cough May 17, 2024 12:00am cholecalciferol 0.125 mg oral tablet (11 sources) Vitamin D Start: 12-27-2020 take 1 tablet by mouth once daily Cholecalciferol (Vitamin D3) (Vitamin D3) 125 mcg (5,000 unit) Tablet Active 125 MCG PO Daily December 26, 2020 11:00pm Vitamin D3 25 MC G (1000 UT) Oral Capsule TAKE DIRECTED. Quantity: 0 Refills: 0 Ordered: 19-Mar-2021 DO Active cloNIDine hydrochloride 0.2 mg oral tablet (20 sources) Central alpha-2 Adrenergic Agonist Start: 09-24-2022 take 1 tablet by mouth twice daily cloNIDine 0.3 mg Tab 0.3 mg = 1 tab(s), Oral, BID, # 180 tab(s), Refills(s) 3, Pharmacy: [facility]/pharmacy #[id number], 164, cm, 09/24/22 12:51:00 EDT, Height/Length Dosing, 91.4, kg, 09/24/22 12:51:00 EDT, Weight Dosing Start Date: 09/24/22 Status: Ordered Start: 04-02-2022 take 1 tablet by mk th twice daily cloNIDine 0.1 mg tab 0.1 mg = 1 tab(s), Oral, BID, # 60 tab(s), Refills(s) 3, [id number], cm, 04/02/22 13:47:00 EST, Height/Length Dosing, 94.2, kg, 04/02/22 13:47:00 EST, Weight Dosing Start Date: 04/02/22 Status: Ordered Start: 12-27-2020 End: 02-29-2024 take 1 tablet by mouth twice daily Clonidine Hcl 0.2 mg tablet Active 0.2 MG PO Twice daily 180 February 29, 2024 9:42am take 2 tablets by mo [facility] at bedtime cloNIDine HCl - 0.2 MG Oral Tablet TAKE 2 TABLETS AT BEDTIME. Quantity: 0 Refills: 0 Ordered: 19-Mar-2021 DO Active DilTIAZem (Eqv-Dilacor XR) 120 mg/24 hours oral capsule, extended release (2 sources) Start: 09-07-2022 DilTIAZem (Eqv-Dilacor XR) 120 mg/24 hours oral capsule, extended release 120 mg = 1 cap(s), Oral, Daily, # 90 cap(s), Refills(s) 1, [id number] 160, cm, 09/07/22 18:32:00 EDT, Height/Length Dosing, 91.2, kg, 09/07/22 18:32:00 EDT, Weight Dosing Start Date: 09/07/22 Status: Ordered Ergocalciferol (3 sources) Provitamin D2 Compound Start: 04-02-2022 Vitamin D2 Refills(s) 0 Start Date: 04/02/22 Status: Ordered hydroCHLOROthiazide 12.5 mg oral tablet (12 sources) Thiazide Diuretic Start: 10-11-2023 take 1 tablet by mouth once daily hydrochlorothiazide 12.5 mg Tab 12.5 mg = 1 tab(s), Oral, Daily, # 30 tab(s), Refills(s) 2, Pharmacy: [facility]/pharmacy #[id number], 164, cm, 10/11/23 13:23:00 EDT, Height/Length Dosing, 94.6, kg, 10/11/23 13:23:00 EDT, Weight Dosing Start Date: 10/11/23 Status: Ordered Start: 12-27-2020 End: 02-29-2024 Hydrochlorothiazide 25 mg ta blet Discontinued 25 MG PO As Directed December 26, 2020 11:00pm February 29, 2024 8:48am 24 hr isosorbide mononitrate 60 mg extended release oral tablet (20 sources) Nitrate Vasodilator Start: 12-27-2020 Isosorbide Mononitrate 60 mg tablet extended release 24 hr Active 60 MG PO As Directed December 26, 2020 11:00pm take 1 tablet by mk th every twenty-four hours Isosorbide Mononitrate ER 60 MG 1 tablet once a day Active Nitro Sublingual 0.4 (2 sources) Nitro Sublingual 0.4 for 90 days Active ondansetron 4 mg disintegrating oral tablet (1 source) Serotonin-3 Receptor Antagonist Start: 05-17-19 take 1 tablet by mouth every eight hours as needed for nausea and vomiting Ondansetron 4 mg tablet,disintegrat ing Active 4 MG PO Q8H as needed for nausea and vomiting May 17, 2024 12:00am oseltamivir 75 mg oral capsule (2 sources) Neuraminidase Inhibitor Start: 05-13-19 take 1 capsule by mouth twice daily Oseltamivir (Tamiflu) 75 mg capsule Active 75 MG PO Twice daily 01 07May 13, 2024 12:00am POLYETHYLENE GLYCOL 3350 (4 sources) Osmotic Laxative Start: 08-20-19 MiraLax - 17 grams Orally daily for 1 month August, Active 12 hr ranolazine 500 mg extended release oral tablet (17 sources) Anti-anginal Start: 07-19-19 take 1 tablet by mouth twice daily ranolazine 500 mg oral ER Tab See Instructions, TAKE 1 TABLET BY MOUTH TWICE A DAY, # 180 tab(s), Refills(s) 1, Pharmacy: [id number], 164, cm, 03/22/23 7:23:00 EST, Height/Length Dosing, 92.3, kg, 03/22/23 7:23:00 EST, Weight Dosing Start Date: 07/19/23 Status: Ordered Start: 02-16-2023 take 1 tablet by mk th twice daily ranolazine 500 mg oral ER Tab See Instructions, TAKE 1 TABLET BY MOUTH TWICE A DAY, # 180 tab(s), Refills(s) 1, Pharmacy: [id number], 164, cm, 11/12/22 13:53:00 EDT, Height/Length Dosing, 92.3, kg, 11/12/22 13:53:00 EDT, Weight Dosing Start Date: 02/16/23 Status: Ordered Start: 09-07-2022 take 1 tablet by mk th twice daily ranolazine 500 mg oral ER Tab 500 mg = 1 tab(s), Oral, BID, # 180 tab(s), Refills(s) 1, Pharmacy: [facility]/pharmacy #[id number], 160, cm, 09/07/22 18:32:00 EDT, Height/Length Dosing, 91.2, kg, 09/07/22 18:32:00 EDT, Weight Dosing Start Date: 09/07/22 Status: Ordered Start: 04-02-2022 take 1 tablet by mk th twice daily ranolazine 500 mg oral ER Tab 500 mg = 1 tab(s), Oral, BID Start Date: 04/02/22 Status: Ordered Start: 03-19-2021 take 1 tablet by mk th every twelve hours Ranolazine ER 500 MG Oral Tablet Extended Release 12 Hour TAKE 1 TABLET BY MOUTH EVERY 12 HOURS Quantity: 180 Refills: 0 Ordered: 10-Apr-2021 Navdeep German DO Start : 19-Mar-2021 Active take 1 tablet by mk th every twenty-four hours Ranolazine ER 500 MG 1 tablet once a day Active spironolactone 25 mg oral tablet (11 sources) Aldosterone Antagonist Start: 02-29-2024 take 1 tablet by mouth once daily Spironolactone 25 mg tablet Active 25 MG PO Daily February 29, 2024 12:00am [employer] tablet once a day; Note: Source Status: Taking; Provider: Hannah Billingsley ( ) Start: 09-24-2022 take 1 tablet by mk th once daily spironolactone 25 mg Tab 25 mg = 1 tab(s), Oral, Daily, # 60 tab(s), Refills(s) 3, Pharmacy: [facility]/pharmacy #[id number], 164, cm, 09/24/22 12:51:00 EDT, Height/Length Dosing, 91.4, kg, 09/24/22 12:51:00 EDT, Weight Dosing Start Date: 09/24/22 Status: Ordered valsartan 320 mg oral tablet (20 sources) Angiotensin 2 Receptor Benjamin Start: 02-15-2024 take 1 tablet by mouth once daily Valsartan 320 mg tablet Active 0 .ROUTE .COMPLEX 90 February 15, 2024 10:50am TAKE 1 TABLET BY MOUTH EVERY DAY Start: 12-27-2020 End: 02-15-2024 Valsartan 320 mg tablet Disc ontinued 320 MG PO As Directed December 26, 2020 11:00pm February 15, 2024 10:50am Vitamin D-3 1000 UNIT (4 sources) take 1 capsule by mo [facility] once daily Vitamin D-3 1000 UNIT 1 capsule Orally Once a day Active Completed/Discontinued Medications Medication Drug Class(es) Dates Sig (Normalized) Sig (Original) amLODIPine 5 mg oral tablet (5 sources) Dihydropyridine Calcium Channel Benjamin Start: 05-13-2024 End: 05-13-2024 take 1 tablet by mouth once daily Amlodipine 5 mg tablet Discontinued 5 MG PO Daily May 13, 2024 12:00am May 13, 2024 9:08am Start: 03-19-2023 take 1 tablet by mk once daily amLODIPine 5 mg Tab 5 mg = 1 tab(s), Oral, Daily, # 90 tab(s), Refills(s) 3, Pharmacy: [facility]/pharmacy #[id number], 164, cm, 03/19/23 13:02:00 EST, Height/Length Dosing, 95.1, kg, 03/19/23 13:02:00 EST, Weight Dosing Start Date: 03/19/23 Status: Ordered amoxicillin 500 mg oral capsule (1 source) Penicillin-class Antibacterial Start: 05-13-2024 End: 05-17-2024 take 1 capsule by mouth twice daily Amoxicillin 500 mg capsule Discontinued 500 MG PO Twice daily 22 01May 13, 2024 12:00am May 17, 2024 9:21am atenolol 50 mg oral tablet (20 sources) beta-Adrenergic Benjamin Start: 08-18-2022 take 1 tablet by mouth twice daily atenolol 50 mg Tab 50 mg = 1 tab(s), Oral, BID, # 180 tab(s), Refills(s) 3, Pharmacy: [facility]/pharmacy #[id number], 164, cm, 05/12/22 15:46:00 EST, Height/Length Dosing, 90, kg, 05/12/22 15:46:00 EST, Weight Dosing Start Date: 08/18/22 Status: Ordered Start: 12-27-2020 End: 05-10-2024 take 1 tablet by mouth once daily Atenolol 50 mg tablet Discontinued 50 MG PO Daily July 23, 2023 1:59pm May 10, 2024 3:39pm bumetanide 1 mg oral tablet (20 sources) Loop Diuretic Start: 12-27-2020 End: 02-29-2024 Bumetanide 1 mg tablet Discontinued 1 MG PO .prn August 31, 2023 7:45am February 29, 2024 8:47am citalopram 40 mg oral tablet (20 sources) Serotonin Reuptake Inhibitor Start: 10-22-2023 End: 05-07-2024 take 1 tablet by mouth once daily Citalopram 40 mg tablet Discontinued 0 .ROUTE .COMPLEX January 18, 2024 9:48am May 07, 2024 7:23am TAKE 1 TABLET BY MOUTH EVERY DAY Start: 07-19-2023 take 1 tablet by mk th once daily citalopram 40 mg Tab See Instructions, TAKE 1 TABLET BY MOUTH EVERY DAY, # 90 tab(s), Refills(s) 0, Pharmacy: [id number], 164, cm, 03/22/23 7:23:00 EST, Height/Length Dosing, 92.3, kg, 03/22/23 7:23:00 EST, Weight Dosing Start Date: 07/19/23 Status: Ordered Start: 09-07-2022 take 1 tablet by mk once daily citalopram 40 mg Tab See Instructions, TAKE 1 TABLET BY MOUTH EVERY DAY, # 90 tab(s), Refills(s) 0, Pharmacy: [id number], 164, cm, 11/12/22 13:53:00 EDT, Height/Length Dosing, 92.3, kg, 11/12/22 13:53:00 EDT, Weight Dosing Start Date: 02/16/23 Status: Ordered Start: 12-27-2020 End: 10-22-2023 take 1 tablet by mouth once daily Citalopram 20 mg tablet Discontinued 20 MG PO Daily December 26, 2020 11:00pm October 22, 2023 9:50am clopidogrel 75 mg oral tablet (20 sources) [id number] Platelet Inhibitor Start: 12-27-2020 End: 02-29-2024 take 1 tablet by mouth once daily Clopidogrel 75 mg tablet Discontinued 75 MG PO Daily July 23, 2023 1:59pm February 29, 2024 9:43am cyproheptadine hydrochloride 4 mg oral tablet (11 sources) Start: 12-27-2020 End: 02-29-2024 Cyproheptadine 4 mg tablet Discontinued 4 MG PO As Directed as needed for Headache December 26, 2020 11:00pm February 29, 2024 8:47am take 2 tablets by [facility] every eight hours Cyproheptadine HCl - 4 MG Oral Tablet TA KE 2 TABLET Every 8 hours Quantity: 0 Refills: 0 Ordered: 19-Mar-2021 DO Active diclofenac sodium 0.01 mg/mg topical gel (5 sources) Nonsteroidal Anti-inflammatory Drug Start: 09-07-2022 diclofenac topical 1% gel 2 gm, Topical, TID, Refill(s) 0 Start Date: 09/07/22 Status: Ordered dilTIAZem hydrochloride 120 mg oral tablet (15 sources) Calcium Channel Benjamin Start: 02-29-2024 End: 02-29-2024 take 1 tablet by mouth once daily Diltiazem Hcl 120 mg tablet Discontinued 120 MG PO Daily February 29, 2024 12:00am February 29, 2024 8:48am [employer] tablet once a day; Note: Source Status: Taking; Provider: Hannah Billingsley ( ) Start: 03-19-2021 take 1 capsule by [facility] once daily Dilt-XR 120 MG Oral Capsule Extended Release 24 Hour TAKE 1 CAPSULE BY MOUTH EVERY DAY Quantity: 90 Refills: 0 Ordered: 10-Apr-2021 Navdeep German DO Start : 10-Apr-2021 Active take 1 tablet by [facility] every twenty-four hours dilTIAZem HCl 120 MG 1 tablet once a day Active famotidine 40 mg oral tablet (20 sources) Histamine-2 Receptor Antagonist Start: 10-21-2023 End: 04-18-2024 take 1 tablet by mouth once daily at bedtime Famotidine 40 mg tablet Discontinued 0 .ROUTE .COMPLEX January 17, 2024 9:34pm April 18, 2024 8:30am TAKE 1 TABLET BY MOUTH EVERYDAY AT BEDTIME Start: 12-27-2020 End: 10-21-2023 Famotidine 40 mg tablet Disc ontinued 40 MG PO As Directed December 26, 2020 11:00pm October 21, 2023 7:47am meloxicam 15 mg oral tablet (7 sources) Nonsteroidal Anti-inflammatory Drug Start: 11-22-2023 End: 02-29-2024 take 1 tablet by mouth once daily Meloxicam 15 mg tablet Discontinued 0 .ROUTE .COMPLEX November 22, 2023 5:36am February 29, 2024 8:49am TAKE 1 TABLET BY MOUTH EVERY DAY Start: 09-14-2023 End: 11-22-2023 take 1 tablet by mouth once daily Meloxicam 15 mg tablet Discontinued 15 MG PO Daily September 13, 2023 11:00pm November 22, 2023 5:36am 24 hr NIFEdipine 60 mg extended release oral tablet (6 sources) Dihydropyridine Calcium Channel Benjamin Start: 12-27-2020 End: 02-29-2024 Nifedipine 60 mg tablet extended release Discontinued 60 MG PO As Directed December 26, 2020 11:00pm February 29, 2024 8:49am nitroglycerin 0.4 mg sublingual tablet (20 sources) Nitrate Vasodilator Start: 12-27-2020 End: 10-11-2023 Nitroglycerin 0.4 mg tablet, sublingual Discontinued 0.4 MG SUBLINGUAL As Directed as needed for Chest Pain July 23, 2023 1:59pm October 11, 2023 9:10am Nitroglycerin 0. [address] 1 TABLET UNDER TONGUE EVERY 5 MINS, UP TO 3 DOSES NEEDED FOR CHEST PAIN DIRECTED for 30 Active potassium chloride 20 meq extended release oral tablet (17 sources) Start: 04-08-2022 take 1 tablet by mouth once potassium chloride 20 mEq ER Tab 40 mEq = 2 tab(s), Oral, Once, Take one time dose in preparation for cardiac cath, # 2 tab(s), Refills(s) 0, Pharmacy: [facility]/pharmacy #[id number], 164, cm, 04/08/22 9:20:00 EST, Height/Length Dosing, 94.2, kg, 04/08/22 9:20:00 EST, Weight Dosing Start Date: 04/08/22 Status: Ordered Start: 12-27-2020 End: 02-29-2024 Potassium Chloride 10 mEq ta blet extended release Discontinued 10 MEQ PO As Directed December 26, 2020 11:00pm February 29, 2024 8:49am take 1 tablet by mk th at mealtime as needed Klor-Con M10 10 MEQ 1 tablet with food Orally prn w bumex Active Problems Active Problems Problem Classification Problem Date Documented Da te Episodic/Chronic Abdominal pain (4 sources) Abdominal pain; Translations: [Unspecified abdominal pain] Episodic Acute and chronic tonsillitis (2 sources) Acute bacterial tonsillitis; Translations: [Acute tonsillitis due to other specified organisms] 05-13-2024 Episodic Anxiety disorders (6 sources) Anxiety disorder, unspecified; Translations: [Anxiety] Onset: 2 08-14-2022 Chronic Cardiac and circulatory congenital anomalies (10 sources) Premature closure of foramen ovale; Translations: [Other bulbus cordis anomalies and anomalies of cardiac septal closure] 08-14-2022 Chronic Cardiac dysrhythmias (10 sources) Tachycardia; Translations: [Tachycardia, unspecified] 08-14-2022 Episodic Congestive heart failure; nonhypertensive (5 sources) Congestive heart failure 08-14-2022 Chronic Coronary atherosclerosis and other heart disease (20 sources) History of myocardial infarction; Translations: [Old myocardial infarction] Onset: 2 08-14-2022 Chronic Deficiency and other anemia (5 sources) Anemia 08-14-2022 Episodic Deficiency and other anemia (4 sources) Iron deficiency anemia; Translations: [Iron deficiency anemia, unspecified] Episodic Deficiency and other anemia (1 source) Iron deficiency anemia, unspecified Episodic Diabetes mellitus with complications (2 sources) Hyperglycemia due to type 2 diabetes mellitus; Translations: [Type 2 diabetes mellitus with hyperglycemia] 03-30-2024 Chronic Diabetes mellitus without complication (9 sources) Hyperglycemia, unspecified; Translations: [Other abnormal glucose] Onset: 2 Episodic Disorders of lipid metabolism (20 sources) Hyperlipidemia; Translations: [Other and unspecified hyperlipidemia] Onset: 2 Chronic Comment on above: Problem List clean-u p per request of Phys. EHR Cmte Essential hypertension (20 sources) Benign essential hypertension; Translations: [Benign essential hypertension] Onset: 3 Chronic Gastritis and duodenitis (4 sources) Gastritis; Translations: [Gastritis, unspecified, without bleeding] Episodic Gastrointestinal hemorrhage (6 sources) Hematochezia; Translations: [Melena] 03-17-2023 Episodic Comment on above: Problem List clean-u p per request of Phys. EHR Cmte Heart valve disorders (5 sources) Mitral valve sclerosis 08-14-2022 Chronic Hypertension with complications and secondary hypertension (1 source) Hypertensive urgency; Translations: [HYPERTENSIVE URGENCY] Onset: 2 Chronic Immunizations and screening for infectious disease (1 source) Contact with or exposure to other viral diseases; Translations: [Exposure to 2019 novel coronavirus] 12-28-2023 Episodic Influenza (4 sources) Influenza due to Influenza A virus; Translations: [Influenza due to other identified influenza virus with other respiratory manifestations] 05-13-2024 Episodic Malaise and fatigue (15 sources) Fatigue; Translations: [Other fatigue] 08-14-2022 Episodic Mycoses (5 sources) Pityriasis versicolor 08-14-2022 Episodic Nausea and vomiting (4 sources) Nausea; Translations: [Nausea] Episodic Nonspecific chest pain (10 sources) Chest pain; Translations: [Chest pain, unspecified] Onset: 3 Episodic Nutritional deficiencies (6 sources) Vitamin D deficiency, unspecified; Translations: [Vitamin D deficiency] Onset: 2 08-14-2022 Chronic Osteoarthritis (5 sources) Bilateral osteoarthritis of knees 08-14-2022 Chronic Other endocrine disorders (4 sources) 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, simple virilizing type; Translations: [Adrenogenital disorder, unspecified] Chronic Other gastrointestinal disorders (4 sources) Irritable bowel syndrome; Translations: [Irritable bowel syndrome without diarrhea] Chronic Other gastrointestinal disorders (4 sources) Swollen abdomen; Translations: [Abdominal distension (gaseous)] Episodic Other gastrointestinal disorders (4 sources) Constipation alternates with diarrhea; Translations: [Other specified symptoms and signs involving the digestive system and abdomen] Episodic Other gastrointestinal disorders (5 sources) Abdominal bloating; Translations: [Abdominal distension (gaseous)] 08-31-2023 Episodic Other gastrointestinal disorders (4 sources) Abdominal distension (gaseous); Translations: [Flatulence, eructation, and gas pain] 08-31-2023 Episodic Other lower respiratory disease (1 source) Dyspnea; Translations: [Shortness of breath] Onset: 3 Episodic Other nervous system disorders (2 sources) Facial paresthesia; Translations: [Paresthesia of skin] 02-29-2024 Episodic Other nervous system disorders (2 sources) Paresthesia of skin; Translations: [Disturbance of skin sensation] 02-29-2024 Episodic Other non-traumatic joint disorders (4 sources) Pain in joints of left hand; Translations: [PAIN IN JOINTS OF LEFT HAND] Onset: 3 Episodic Other non-traumatic joint disorders (11 sources) Pain in left knee; Translations: [Left knee pain] 08-31-2023 Episodic Other nutritional; endocrine; and metabolic disorders (5 sources) Obesity; Translations: [Obesity, unspecified] Chronic Other nutritional; endocrine; and metabolic disorders (4 sources) Body mass index 25-29 - overweight; Translations: [Body mass index (BMI) 29.0-29.9, adult] Episodic Other nutritional; endocrine; and metabolic disorders (4 sources) Loss of appetite; Translations: [Anorexia] Episodic Other nutritional; endocrine; and metabolic disorders (4 sources) Weight decreased; Translations: [Abnormal weight loss] Episodic Other upper respiratory infections (3 sources) Acute pharyngitis, unspecified; Translations: [Acute pharyngitis] 12-28-2023 Episodic Peripheral and visceral atherosclerosis (5 sources) Arteriosclerotic vascular disease 08-14-2022 Chronic Residual codes; unclassified (5 sources) Obstructive sleep apnea syndrome; Translations: [Obstructive sleep apnea (adult) (pediatric)] 08-31-2023 Chronic Residual codes; unclassified (2 sources) Obstructive sleep apnea (adult) (pediatric); Translations: [Obstructive sleep apnea (adult)(pediatric)] 08-31-2023 Chronic Spondylosis; intervertebral disc disorders; other back problems (4 sources) Unspecified inflammatory spondylopathy, cervical region; Translations: [UNS INFLAM SPONDYLOPATHIES CERV RGN] Onset: 2 Chronic Spondylosis; intervertebral disc disorders; other back problems (12 sources) Lumbar radiculopathy; Translations: [Radiculopathy, lumbar region] 09-14-2023 Episodic Transient cerebral ischemia (5 sources) Transient cerebral ischemia 08-14-2022 Chronic Viral infection (2 sources) Disease caused by 2019-nCoV; Translations: [COVID-19] 12-28-2023 Episodic Past or Other Problems Problem Classification Problem Date Documented Da te Episodic/Chronic Coagulation and hemorrhagic disorders (1 source) Hemorrhagic condition, unspecified; Translations: [HEMORRHAGIC CONDITION UNSPECIFIED] Onset: 12-03-2021 Episodic Deficiency and other anemia (4 sources) Anemia, unspecified; Translations: [ANEMIA UNSPECIFIED] Onset: 12-02-2021 Episodic Disorders of teeth and jaw (5 sources) Other specified disorders of teeth and supporting structures; Translations: [Periapical abscess without sinus] Onset: 07-31-2021 Episodic Other aftercare (1 source) Other halfway (current) drug therapy; Translations: [OTH HOUSEKEEPER/LAUNDRY ASSISTANT CURRENT DRUG THERAPY] Onset: 10-10-2021 Episodic Other aftercare (1 source) care home (current) use of aspirin; Translations: [HOUSEKEEPER/LAUNDRY ASSISTANT CURRENT USE OF ASPIRIN] Onset: 10-10-2021 Episodic Other aftercare (1 source) care home (current) use of oral hypoglycemic drugs; Translations: [HOUSEKEEPER/LAUNDRY ASSISTANT USE ORAL HYPOGLYCEMIC DX] Onset: 07-31-2021 Episodic Other circulatory disease (1 source) Personal history of transient ischemic attack (TIA), and cerebral infarction without residual deficits; Translations: [PERS HX TIA AND CI NO RESID DEFICIT] Onset: 10-10-2021 Episodic Other connective tissue disease (1 source) Other muscle spasm; Translations: [OTHER MUSCLE SPASM] Onset: 07-24-2021 Episodic Residual codes; unclassified (1 source) Acquired absence of other specified parts of digestive tract; Translations: [ACQ ABSENCE OTH PART DIGESTV TRACT] Onset: 10-10-2021 Episodic Unclassified (5 sources) Never smoked tobacco; Translations: [Never a smoker] Results Test Name Value Interpretation Reference Range Facility Influenza virus A and B and SARS-CoV-2 (COVID-19) RNA panel - Respiratory system specon 05-13-2024 Influenza virus A and B RNA and SARS-CoV-2 (COVID-19) N gene panel RAJINDER+probe (Resp) Influenza virus A and B and SARS-CoV-2 (COVID-19) RNA panel - Respiratory system spec [facility] - Microbiology an d Antimicrobial susceptibilityon 05-13-2024 SARS-CoV-2 (COVID-19) RNA RAJINDER+probe Ql (Unsp spec) Negative [facility] No Panel InformationOrdered By: Chelsy Palacios on 05-13-2024 Quick Strep (POC) [facility] No Panel Informationon 05-13 POC Influenza B (RAJINDER) Negative [facility] Basophils Auto (Bld) [#/Vol] on 03-14-2024 Basophils (Bld) [#/Vol] Automated basophil count 0.0-0.1 [facility] Basophils/100 WBC Auto (Bld) on 03-14-2024 Basophils/100 WBC (Bld) Automated basophil % 0.2-2.0 [facility] Eosinophils/100 WBC Auto (Bl d)on 03-14-2024 Eosinophils/100 WBC (Bld) Automated eosinophil % 0.9-7.0 [facility] Erythrocyte distribution wid th Auto (RBC) [Ratio]on 03-14-2024 Erythrocyte distribution width (RBC) [Ratio] Erythrocyte distribution width [Ratio] by Automated count 11.0-15.0 [facility] Estimated glomerular filtrat ion rate (GFR) non- Americanon 03-14-2024 GFR/1.73 sq M.predicted among non-blacks MDRD (S/P/Bld) [Vol rate/Area] Estimated glomerular filtration rate (GFR) non- Low >=60 mL/min/1.73m 2 [facility] Globulin Calc (S) [Mass/Vol] on 03-14-2024 Globulin (S) [Mass/Vol] Serum globulin measurement by calculation (mass/volume) [facility] Glucose mean value [Mass/vol ume] in Blood Estimated from glycated hemoglobinon 03-14-2024 Average glucose Estimated from glycated hemoglobin (Bld) [Mass/Vol] Glucose mean value [Mass/volume] in Blood Estimated from glycated hemoglobin [facility] Hematocrit Auto (Bld) [Volum e fraction]on 03-14-2024 Hematocrit (Bld) [Volume fraction] Hematocrit [Volume Fraction] of Blood by Automated count 36.0-48.0 [facility] Hemoglobin [Mass/volume] in Bloodon 03-14-2024 Hemoglobin (Bld) [Mass/Vol] Hemoglobin [Mass/volume] in Blood 12.0-16.0 [facility] - Chemistry and C hemistry - challengeon 03-14-2024 Albumin [Mass/Vol] 3.8 g/dL 3.4-5.0 [facility] ALP [Catalytic activity/Vol] 136 U/L High 46-116 [facility] ALT [Catalytic activity/Vol] 27 U/L 14-59 [facility] AST [Catalytic activity/Vol] 19 U/L 15-37 [facility] Bilirubin [Mass/Vol] 0.8 mg/dL 0.2-1.0 [facility] Calcium [Mass/Vol] 9.6 mg/dL 8.5-10.1 [facility] Chloride [Moles/Vol] 107 mmol/L 98-107 [facility] CO2 [Moles/Vol] 32.0 mmol/L 21.0-32.0 [facility] Creatinine [Mass/Vol] 1.07 mg/dL High 0.55-1.02 [facility] GFR/1.73 sq M.predicted MDRD (S/P/Bld) [Vol rate/Area] mL/min/{1.73_m2} >=60 mL/min/1.73m 2 [facility] Glucose [Mass/Vol] 129 mg/dL High 74-106 [facility] Potassium [Moles/Vol] 3.4 mmol/L Low 3.5-5.1 [facility] Protein [Mass/Vol] 7.8 g/dL 6.4-8.2 [facility] Sodium [Moles/Vol] 145 mmol/L 136-145 [facility] TSH Qn 2.270 m[IU]/L 0.358-3.740 [facility] Urea nitrogen [Mass/Vol] 10.0 mg/dL 7.0-18.0 [facility] Urea nitrogen/Creatinine [Mass ratio] 9.3 mg/mg [facility] - Hematology and Cell countson 03-14-2024 HbA1c (Bld) [Mass fraction] 6.3 % High 4.5-6.2 [facility] Comment on above: ADA RECOMMENDED LIMI T 4.0 - 6.0ADA THERAPEUTIC TARGET < 7.0ACTION SUGGESTED> 7.0 Immature granulocytes/100 WBC (Bld) 0.2 % 0.0-0.5 [facility] Leukocytes [#/volume] correc olga for nucleated erythrocytes in Blood by Automated counon 03-14-2024 WBC corrected for nucl RBC Auto (Bld) [#/Vol] Leukocytes [#/volume] corrected for nucleated erythrocytes in Blood by Automated coun 4.0-11.0 [facility] Lymphocytes Auto (Bld) [#/Vo l]on 03-14-2024 Lymphocytes (Bld) [#/Vol] Lymphocytes [#/volume] in Blood by Automated count 1.2-3.8 [facility] Lymphocytes/100 WBC Auto (Bl d)on 03-14-2024 Lymphocytes/100 WBC (Bld) Lymphocytes/100 leukocytes in Blood by Automated count 20.5-60.0 [facility] MCH Auto (RBC) [Entitic mass ]on 03-14-2024 MCH (RBC) [Entitic mass] MCH [Entitic mass] by Automated count 26.7-34.0 [facility] MCHC Auto (RBC) [Mass/Vol]on 03-14-2024 MCHC (RBC) [Mass/Vol] MCHC [Mass/volume] by Automated count 29.9-35.2 [facility] MCV Auto (RBC) [Entitic vol] on 03-14-2024 MCV (RBC) [Entitic vol] MCV [Entitic volume] by Automated count 81.0-99.0 [facility] Microalbumin [Mass/volume] i n Urineon 03-14-2024 Albumin DL <= 20 mg/L (U) [Mass/Vol] Microalbumin [Mass/volume] in Urine <=30.0 [facility] Monocytes Auto (Bld) [#/Vol] on 03-14-2024 Monocytes (Bld) [#/Vol] Automated blood monocyte count 0.3-0.8 [facility] Monocytes/100 WBC Auto (Bld) on 03-14-2024 Monocytes/100 WBC (Bld) Automated monocyte % 1.7-12.0 [facility] Neutrophils Auto (Bld) [#/Vo l]on 03-14-2024 Neutrophils (Bld) [#/Vol] Neutrophils [#/volume] in Blood by Automated count 1.4-6.5 [facility] Neutrophils/100 WBC Auto (Bl d)on 03-14-2024 Neutrophils/100 WBC (Bld) Automated neutrophil % 43.0-75.0 [facility] No Panel Informationon 03-14 Eosinophils # (Auto) 0.2 10 3/uL 0.0-0.7 [facility] Immature Granulocyte # (Auto) 0.01 10 3/uL 0.00-0.03 [facility] Urine Random Creatinine 505.77 mg/dL High 20.00-300.00 [facility] Platelet mean volume Auto (B ld) [Entitic vol]on 03-14-2024 Platelet mean volume (Bld) [Entitic vol] Platelet mean volume [Entitic volume] in Blood by Automated count Low 9.5-13.5 [facility] Platelets Auto (Bld) [#/Vol] on 03-14-2024 Platelets (Bld) [#/Vol] Platelets [#/volume] in Blood by Automated count 150-450 [facility] RBC Auto (Bld) [#/Vol]on RBC (Bld) [#/Vol] Erythrocytes [#/volume] in Blood by Automated count 4.20-5.40 [facility] Serum or plasma albumin/glob ulin mass ratioon 03-14-2024 Albumin/Globulin [Mass ratio] Serum or plasma albumin/globulin mass ratio [facility] Serum or plasma anion gap de terminationon 03-14-2024 Anion gap [Moles/Vol] Serum or plasma an ion gap determination [facility] Urine microalbumin/creatinin e mass ratioon 03-14-2024 Albumin/Creatinine DL <= 20 mg/L (U) [Mass ratio] Urine microalbumin/creatinin e mass ratio 0.0-29.9 [facility] Comment on above: NO MICROALBUMINURIA 0-29 MG/GCLINICAL MICROALBUMINURIA 30-300 MG/GMACROALBUMINURIA >300 MG/G No Panel InformationOrdered By: Michelle Ross on 12-28-2023 COVID Antigen (POC) [facility] Quick Strep (POC) [facility] Heart and Vascular Office/Cl inic Noteon 10-11-2023 Heart and Vascular Office/Clinic Note Heart and Vascular Office/Clinic Note Chief Complaint f/u chest pain History of Present Illness Patient is a 53-year-old female with past medical history of CAD with prior remote PCI, hypertension, hyperlipidemia, chronic chest pain syndrome. Patient comes to the office for acute visit due to recent ongoing chest pains. At last visit, patient saw Dr. Contreras and he suggested cardiac cath at that time. The cath was completed and showed patent previously placed stents and nonobstructive CAD with negative IFR to 3 vessels. Patient reports that 2 weeks ago with her most recent episode of chest pain and at that time she took a nitro and that relieved her symptoms. Patient is also taking isosorbide and Ranexa to help with chest pains. She states that she has ongoing anginal symptoms and it did not feel any different than normal to her 2 weeks ago. Patient is not significantly concerned with symptoms at this time Blood pressure quite elevated in the office today. However, patient reports that she had a normal blood pressure of about 120/80 when she was home today. Looking back at past office blood pressures, there are times where her blood pressure is very well-controlled and other times where it is quite high. Patient is no longer taking amlodipine 5 mg because it was giving her headaches. She is compliant with atenolol, clonidine, isosorbide, spironolactone, valsartan. Patient denies shortness of breath, heart palpitations, dizziness/lightheadedn ess, and swelling in lower legs. Review of Systems ROS - Provider Constitutional: no fever, no chills, no sweats, no weakness Respiratory: no shortness of breath, no cough Cardiovascular: yes chest pain Neuro: no dizziness. no loss of consciousness Physical Exam Vitals & Measurements HR: 64(Peripheral) RR: 18 BP: 180/100 SpO2: 96% HT: 65 in HT: 164 cm WT: 94.6 kg WT: 208.12 lb BMI: 35.17 General: alert, no acute distress Cardiovascular: regular rate and rhythm, no murmur normal peripheral perfusion Respiratory: Lungs CTAB, respirations non labored Extremities: no edema left lower extremity. no edema right lower extremity Neurological: oriented x 4, LOC appropriate for age, speech normal Skin: Warm, dry, intact- no rash or concerning lesions Cardiac Diagnostics C with Dr. Contreras on 03/22/2023: LMT: Normal left main trunk with bifurcation LAD: Normal caliber with patent previously placed stents in proximal 60 to 70% stenosis, reaches the apex. LCx: Normal caliber with mild diffuse irregularity less than 30% stenosis in the main body, 50 to 60% OM 3, reaches the lateral wall. RCA: Normal caliber with mild diffuse irregularity and less than 30% stenosis, dominant, reaches the inferior wall. Hemodynamics: Normal LVEDP with no gradient across the aortic valve. Left ventriculography: Normal LV systolic function, EF 55-60%, no wall motion abnormalities and normal chamber size with no mitral regurgitation. iFR note: Successful IFR of the proximal LAD equals 0.92 which is negative. IFR of the OM 3 equals 0.97 which is negative Conclusions: Negative IFR of the LAD and OM. Medical therapy is advised. [1] (05/11/2022 11:17 EST Echo Transthoracic Complete) Interpretation Summary Ejection Fraction = 60-65%. Normal diastolic function. Intact PFO closure device, no shunt noted by Doppler. There is mild mitral regurgitation. There is trace tricuspid regurgitation. Right ventricular systolic pressure is 29 mmHg. In comparison echo report dated 05/22/2020, from an outside hospital in [place], no appreciable changes noted. [2] Assessment/Plan 1. Angina pectoris (I20.9: Angina pectoris, unspecified) Patient has a history of angina and is currently taking isosorbide 60 mg ER twice daily and Ranexa 500 mg ER twice daily to help with the symptoms. Patient also has nitro to take as needed which she did take 2 weeks ago but has not had any further issues with angina since then. I would suggest she continue with current regimen at this time as she is stable. EKG in the office showed sinus bradycardia with nonspecific T wave changes, no acute STEMI or signs of ischemia. 2. CAD in [place] artery (I25.10: Atherosclerotic heart disease of [place] coronary artery without angina pectoris) History of CAD with prior PCI. Most recent cath from 03/2023 showed nonobstructive moderate CAD, but no intervention needed at that time. Patient is currently taking aspirin 81 mg daily, atorvastatin 40 mg daily. Patient is not taking beta-benjamin. Continue with current medicines 3. HTN (hypertension) (I10: Essential (primary) hypertension) Blood pressure is quite high in the office today. Patient reports she is no longer taking amlodipine 5 mg as it gives her headache every time she takes it. She is compliant with atenolol 50 mg, clonidine 0.3 mg twice daily, isosorbide 60 mg ER twice daily, valsartan 320 mg daily, spironolactone 25 mg daily. Patient reports her blood pressures variable, sometimes high (more content not included)... Normal [facility] Comment on above: Result Comment: Elec tronically Signed By: Melania NI, Michelet Marquez\.br\Date and Time Signed: 10/11/23 13:54 EDT Basophils Auto (Bld) [#/Vol] on 08-31-2023 Basophils (Bld) [#/Vol] 0.0 10 3/uL 0.0-0.1 [facility] Basophils/100 WBC Auto (Bld) on 08-31-2023 Basophils/100 WBC (Bld) 0.6 % 0.2-2.0 [facility] Cholesterol in LDL Calc [Mas s/Vol]on 08-31-2023 Cholesterol in LDL [Mass/Vol] 65.8 mg/dL [facility] Comment on above: <100 mg/dl [id number] 0-129 mg/dl NEAR OR ABOVE [id number] mg/dl BORDERLINE [id number] mg/dl HIGH>190 mg/dl VERY HIGH Cholesterol in VLDL Calc [Ma ss/Vol]on 08-31-2023 Cholesterol in VLDL [Mass/Vol] 26.2 mg/dL [facility] Eosinophils/100 WBC Auto (Bl d)on 08-31-2023 Eosinophils/100 WBC (Bld) 3.5 % 0.9-7.0 [facility] Erythrocyte distribution wid th Auto (RBC) [Ratio]on 08-31-2023 Erythrocyte distribution width (RBC) [Ratio] 13.5 % 11.0-15.0 [facility] Estimated glomerular filtrat ion rate (GFR) non- Americanon 08-31-2023 GFR/1.73 sq M.predicted among non-blacks MDRD (S/P/Bld) [Vol rate/Area] mL/min/{1.73_m2} >=60 [facility] Globulin Calc (S) [Mass/Vol] on 08-31-2023 Globulin (S) [Mass/Vol] 3.7 g/dL [facility] Hematocrit Auto (Bld) [Volum e fraction]on 08-31-2023 Hematocrit (Bld) [Volume fraction] 42.2 % 36.0-48.0 [facility] Hemoglobin [Mass/volume] in Bloodon 08-31-2023 Hemoglobin (Bld) [Mass/Vol] 13.6 g/dL 12.0-16.0 [facility] - Chemistry and C hemistry - challengeon 08-31-2023 Albumin [Mass/Vol] 3.4 g/dL 3.4-5.0 [facility] ALP [Catalytic activity/Vol] 120 U/L High 46-116 [facility] ALT [Catalytic activity/Vol] 28 U/L 14-59 [facility] AST [Catalytic activity/Vol] 18 U/L 15-37 [facility] Bilirubin [Mass/Vol] 0.4 mg/dL 0.2-1.0 [facility] Calcium [Mass/Vol] 9.0 mg/dL 8.5-10.1 [facility] Chloride [Moles/Vol] 108 mmol/L High 98-107 [facility] Cholesterol [Mass/Vol] 135 mg/dL <=200 [facility] Cholesterol in HDL [Mass/Vol] 43 mg/dL 40-60 [facility] Comment on above: > or =60 mg/dl - LOW CARDIOVASCULAR RISK<40 mg/dl - HIGH CARDIOVASCULAR RISK CO2 [Moles/Vol] 28.5 mmol/L 21.0-32.0 [facility] Creatinine [Mass/Vol] 0.85 mg/dL 0.55-1.02 [facility] GFR/1.73 sq M.predicted MDRD (S/P/Bld) [Vol rate/Area] mL/min/{1.73_m2} >=60 [facility] Glucose [Mass/Vol] 125 mg/dL High 74-106 [facility] Potassium [Moles/Vol] 3.8 mmol/L 3.5-5.1 [facility] Protein [Mass/Vol] 7.1 g/dL 6.4-8.2 [facility] Sodium [Moles/Vol] 143 mmol/L 136-145 [facility] Triglyceride [Mass/Vol] 131 mg/dL <=150 [facility] TSH Qn 1.947 m[IU]/L 0.358-3.740 [facility] Urea nitrogen [Mass/Vol] 10.0 mg/dL 7.0-18.0 [facility] Urea nitrogen/Creatinine [Mass ratio] 11.8 mg/mg [facility] Laboratory - Hematology and Cell countson 08-31-2023 Immature granulocytes/100 WBC (Bld) 0.2 % 0.0-0.5 [facility] Leukocytes [#/volume] correc olga for nucleated erythrocytes in Blood by Automated counon 08-31-2023 WBC corrected for nucl RBC Auto (Bld) [#/Vol] 5.1 10 3/uL 4.0-11.0 [facility] Lymphocytes Auto (Bld) [#/Vo l]on 08-31-2023 Lymphocytes (Bld) [#/Vol] 1.4 10 3/uL 1.2-3.8 [facility] Lymphocytes/100 WBC Auto (Bl d)on 08-31-2023 Lymphocytes/100 WBC (Bld) 26.3 % 20.5-60.0 [facility] MCH Auto (RBC) [Entitic mass ]on 08-31-2023 MCH (RBC) [Entitic mass] 29.1 pg 26.7-34.0 [facility] MCHC Auto (RBC) [Mass/Vol]on 08-31-2023 MCHC (RBC) [Mass/Vol] 32.2 g/dL 29.9-35.2 [facility] MCV Auto (RBC) [Entitic vol] on 08-31-2023 MCV (RBC) [Entitic vol] 90.2 fL 81.0-99.0 [facility] Monocytes Auto (Bld) [#/Vol] on 08-31-2023 Monocytes (Bld) [#/Vol] 0.5 10 3/uL 0.3-0.8 [facility] Monocytes/100 WBC Auto (Bld) on 08-31-2023 Monocytes/100 WBC (Bld) 9.9 % 1.7-12.0 [facility] Neutrophils Auto (Bld) [#/Vo l]on 08-31-2023 Neutrophils (Bld) [#/Vol] 3.1 10 3/uL 1.4-6.5 [facility] Neutrophils/100 WBC Auto (Bl d)on 08-31-2023 Neutrophils/100 WBC (Bld) 59.5 % 43.0-75.0 [facility] No Panel Informationon 08-30 Eosinophils # (Auto) 0.2 10 3/uL 0.0-0.7 [facility] Immature Granulocyte # (Auto) 0.01 10 3/uL 0.00-0.03 [facility] Platelet mean volume Auto (B ld) [Entitic vol]on 08-31-2023 Platelet mean volume (Bld) [Entitic vol] 9.1 fL Low 9.5-13.5 [facility] Platelets Auto (Bld) [#/Vol] on 08-31-2023 Platelets (Bld) [#/Vol] 270 10 3/uL 150-450 [facility] RBC Auto (Bld) [#/Vol]on RBC (Bld) [#/Vol] 4.68 10 6/uL 4.20-5.40 [facility] Serum or plasma albumin/glob ulin mass ratioon 08-31-2023 Albumin/Globulin [Mass ratio] 0.9 {ratio} [facility] Serum or plasma anion gap de terminationon 08-31-2023 Anion gap [Moles/Vol] 10.3 mmol/L [facility] Serum or plasma total choles terol/high density lipoprotein (HDL) cholesterol mass michele 08-31-2023 Cholesterol.total/Chol esterol in HDL [Mass ratio] 3.1 {ratio} [facility] Comment on above: 3.3 - 4.4 LOW RISK4. 4 - 7.1 AVERAGE RISK7.1 - 11.0 MODERATE RISK>11.0 HIGH RISK Heart and Vascular Office/[facility] Noteon 04-11-2023 Heart and Vascular Office/Clinic Note Chief Complaint f/u chest pain, CAD & fatigue History of Present Illness Alexa Carey is a 52-year-old female who presents today for a follow-up evaluation of CAD, remote PCI, hypertension, hyperlipidemia, and chronic chest pain syndrome. The patient is certain that her chest pain symptoms do not show a heart attack, she recalls that she feels the same pain that she had last year, leading to the placement of stents. She feels something resting on her chest and she is experiencing dyspnea. She describes the pain as more severe than it was last time. She would like to do another heart catheterization. She believes that the previously placed stent did help. She believes it made a difference when the heart catheterization was made last time. Her blood pressure is elevated today, which she attributes to anxiety. She has been taking isosorbide 60 mg twice a day. She is unsure about its efficacy, and the pain is intermittent. She believes she has been on amlodipine in the past, but she is unsure about any associated side effects. Review of Systems Review of Systems Constitutional: no fever, no sweats, no weakness Skin: no rash, no lesions, no bruising/petechiae ENMT: no sore throat, no congestion, no hoarseness Respiratory: positive for shortness of breath, no cough, no orthopnea, no wheezing Cardiovascular: positive for chest pain, no palpitations, no edema Gastrointestinal: no nausea, no vomiting, no diarrhea, no GI bleeding Genitourinary: no anuria/oliguria no hematuria Musculoskeletal: no back pain, no trauma Neurologic: no headache, no dizziness, no numbness, no weakness Psychiatric: no sleeping problems, no irritability, no anxiety/depression. Heme/Lymph: no bleeding tendency, no bruising tendency Allergy/Immunologic: no recurrent infections, no impaired immunity Additional ROS info: Except as noted in the above Review of Systems and in the History of Present Illness all other systems have been reviewed and are negative or noncontributory Physical Exam Vitals & Measurements HR: 71(Peripheral) BP: 190/100 SpO2: 97% HT: 65 in HT: 164 cm WT: 95.1 kg WT: 209.22 lb BMI: 35.36 General: alert, no acute distress Skin: warm, dry intact Head: atraumatic, normocephalic Neck: trachea midline, no JVD, no bruit Eye: normal conjunctiva, sclera clear ENMT: oral mucosa moist Cardiovascular: regular rate and rhythm, no murmur, normal peripheral perfusion Respiratory: lungs CTA, respirations non labored Chest wall: no deformity. Gastrointestinal: soft, non-distended, no tenderness, no guarding. Back: no tenderness, normal ROM, normal alignment. Extremities: no edema, no deformity, no trauma Neurological: oriented x 4, LOC appropriate for age, sensation equal & normal bilaterally, speech normal Psychiatric: cooperative, affect appropriate for age, normal judgement, normal psychiatric thoughts. Assessment/Plan Alexa Carey is a 52-year-old female with a history of CAD, remote PCI, hypertension, hyperlipidemia, and chronic chest pain syndrome. She has been having more chest pain recently. We have her on RD3 antianginals. We will change her from diltiazem to amlodipine. We will set her up for a heart catheterization. Last procedure, she required an IFR to prove necessity for stenting. This does not feel like typical rest angina type of narrowing, so it is unclear to me what will be finding, but I know she did feel better after the stent, so we are going to go and see if there is something there, we can fix. 1. Chest pain (R07.9: Chest pain, unspecified) 2. SOB (shortness of breath) (R06.02: Shortness of breath) 3. ASCVD (arteriosclerotic cardiovascular disease) (I25.10: Atherosclerotic heart disease of [place] coronary artery without angina pectoris) ATTESTATION: Portions of this record may have been created with voice recognition artificial intelligence software, specifically [employer] and or [employer]. Substitutions may have occurred voice recognition and artificial intelligence software. Documentation services were performed after patient or guardian consented to allow [employer] to record this visit. FERNIE human services care specialist and provider reviewed before signing. FERNIE: Mana Burdick Follow-up No qualifying data available Problem List/Past Medical History Ongoing Anemia Anxiety ASCVD (arteriosclerotic cardiovascular disease) CHF (congestive heart failure) Fatigue Hypercholesterolemia Hypertension Mitral valve sclerosis Osteoarthritis of both knees Palpitations PFO (patent foramen ovale) Pityriasis versicolor TIA (transient ischemic attack) Unstable angina Vitamin D deficiency Historical No qualifying data Procedure/Surgical History Cardiac catheterization, left heart (04/08/2022), PCI (percutaneous coronary intervention) of left anterior descending branch of coronary artery (04/08/2022), Appendectomy, section (more content not included)... Normal [facility] Comment on above: Result Comment: Elec tronically Signed By: Ben PARRISH, Jairo Robles\.br\Date and Time Signed: 04/11/23 17:48 EST\.br\Electronically Co-Signed By: Mana Burdick\.br\Date and Time Co-Signed: 03/19/23 15:45 EST Consent for Procedure/Surger yon 03-23-2023 Consent for Procedure/Surgery [id number]. 00TIFF [facility] Discharge Instructionson Discharge Instructions [id number]. 00TIFF [facility] Operative Reporton Operative Report Indication for Surge ry Unstable angina Preoperative Diagnosis Known CAD prior PCI, presumed new narrowing Postoperative Diagnosis Confirmed stable CAD with negative IFR of the LAD and left circumflex OM Operation Coronary angiography Left ventriculography Hemodynamic measurements of the left ventricle IFR of the proximal LAD IFR of the distal LCx/OM 3 This note is completed immediately following the procedure the date and time of this procedure are the same as this note. Surgeon(s) Jiaro Contreras MD Anesthesia Conscious sedation Estimated Blood Loss Trivial Findings LMT: Normal left main trunk with bifurcation LAD: Normal caliber with patent previously placed stents in proximal 60 to 70% stenosis, reaches the apex. LCx: Normal caliber with mild diffuse irregularity less than 30% stenosis in the main body, 50 to 60% OM 3, reaches the lateral wall. RCA: Normal caliber with mild diffuse irregularity and less than 30% stenosis, dominant, reaches the inferior wall. Hemodynamics: Normal LVEDP with no gradient across the aortic valve. Left ventriculography: Normal LV systolic function, EF 55-60%, no wall motion abnormalities and normal chamber size with no mitral regurgitation. iFR note: Successful IFR of the proximal LAD equals 0.92 which is negative. IFR of the OM 3 equals 0.97 which is negative Conclusions: Negative IFR of the LAD and OM. Medical therapy is advised. Complications None Technique following full and informed consent the patient was brought to the [facility] where sterile prep and drape were administered in usual fashion. Anesthesia was obtained in the right wrist with lidocaine after administration of conscious sedation. A 5/6 slender Terumo sheath was placed in the right radial artery without complication. Nitroglycerin and nicardipine were given via the sheath and heparin was given intravenously. A 5 [place] JACKE catheter was advanced and selectively engaged in the left main coronary artery and right coronary artery each, where selective injections were performed. A pigtail catheter was placed in the left ventricle where hemodynamic measurements the left ventricle were made and a bolus was given for left ventriculography. A pullback gradient was obtained. A guide catheter was advanced and selectively engaged into the LMT following which the flow wire was advanced into the proximal vessel and normalized. The flow wire was advanced across the lesion of the proximal LAD and OM 3 following which an IFR measurement was obtained. The wire was pulled back to verify no drift. Completion angiography was performed. The sheath was removed with hemostasis obtained by D-Stat radial device at the end of the procedure without complication. Normal [facility] Comment on above: Result Comment: Elec tronically Signed By: Ben PARRISH, Jairo Robles\.br\Date and Time Signed: 03/23/23 07:43 EST [facility] 03-23-2023 Outside Labs [id number]. 00TIFF Normal [facility] Cardiovascular Reporton 03-05 Cardiovascular Report [id number]. 00TIFF Normal [facility] Consent for Treatmenton 03-05 Consent for Treatment [id number] 0TIFF [facility] Inpatient Clinical Summaryon 03-22-2023 Inpatient Clinical Summary [place] [id number] Clinical Summary Person Information: Name: ALEXA CAREY Age: 52 Years : 1970 Sex: Female PCP: BENSON ROMERO MD Marital Status: Single Race: White Ethnicity: Non- or Language: [place]i Visit Id: Visit Reason: R07.9 Speciality: Acuity: Enc Type: Ambulatory/Same Day Surgery Med Service: Cardiovascular Arrival: 03/22/2023 06:39:48 Discharge: Dispo Type: Address: [address] [place] [address] [id number] Provider Notes: Diagnosis: Problems Active Anxiety Osteoarthritis of both knees Unstable angina TIA (transient ischemic attack) Hypertension Hypercholesterolemia Pityriasis versicolor Palpitations PFO (patent foramen ovale) Mitral valve sclerosis Fatigue Vitamin D deficiency CHF (congestive heart failure) ASCVD (arteriosclerotic cardiovascular disease) Anemia Smoking Status: Never Smoker Functional Status: Sensory Deficits: Uncorrected visual impairment History of Falls: Mobility Assistance Prior to Admission: ADLs: Independent Current Level of Assistance for Self-Care/Mobility: Cognitive Status: Allergies lisinopril (Cough) topiramate (Unknown) hydrALAZINE (Unknown) Measurements: Height: 164 cm Weight: 92.3 kg Blood Pressure: 153 mmHg / 94 mmHg BMI: 34.32 kg/m2 Procedures Cardiac catheterization, left heart (03/22/2023) Immunizations No Immunizations Documented This Visit Final Med List: amitriptyline (amitriptyline 75 mg oral tablet) 1 Tablets By Mouth once a day (at bedtime). Refills: 1. amlodipine (amLODIPine 5 mg Tab) 1 Tablets By Mouth every day. Refills: 3. aspirin (aspirin 81 mg Oral EC Tab) 1 Tablets By Mouth every day. atenolol (atenolol 50 mg Tab) 1 Tablets By Mouth 2 times a day. Refills: 3. atorvastatin (atorvastatin 40 mg Tab) 1 Tablets By Mouth every day. Refills: 3. bumetanide (bumetanide 1 mg Tab) 1 Tablets By Mouth every day. Refills: 3. citalopram (citalopram 40 mg Tab) TAKE 1 TABLET BY MOUTH EVERY DAY. Refills: 0. clonidine (cloNIDine 0.3 mg Tab) 1 Tablets By Mouth 2 times a day. Refills: 3. clopidogrel (clopidogrel 75 mg Tab) 1 Tablets By Mouth every day. Refills: 3. diclofenac topical (diclofenac topical 1% gel) 2 Gram Topical 3 times a day. famotidine (famotidine 40 mg Tab) TAKE 1 TABLET BY MOUTH EVERYDAY AT BEDTIME. Refills: 0. isosorbide mononitrate (isosorbide mononitrate 60 mg ER Tab) 1 Tablets By Mouth 2 times a day. morning and afternoon. nitroglycerin (nitroglycerin 0.4 mg sublingual Tab) 1 Tablets Sublingual every 5 minutes as needed for chest pain. as needed for chest pain. ranolazine (ranolazine 500 mg oral ER Tab) TAKE 1 TABLET BY MOUTH TWICE A DAY. Refills: 1. spironolactone (spironolactone 25 mg Tab) 1 Tablets By Mouth every day. Refills: 3. valsartan (valsartan 320 mg Tab) Oral. Care Team Members: Attending Physician: Jairo Contreras MD Consulting Physician: Referring Physician: Jairo Contreras MD Follow up: With: Address: When: Jairo Contreras [facility] 05/07/2023 2:45 PM Type Location Start [facility] Follow Up (FT) [facility] [place] 05/07/2023 2:45 PM 05/07/2023 3:00 PM Confirmed Patient Education Information: CV - Cardiovascular Discharge Instructions (CUSTOM) [facility] Inpatient Patient Summaryon 03-22-2023 Inpatient Patient Summary [place] [id number] Patient Discharge Instructions PERSON INFORMATION Name: ALEXA CAREY Date of : 1970 Current Date: 03/22/2023 12:42:47 PHYSICIANS Admitting Physician: Jairo Contreras MD Primary Care Physician: BENSON ROMERO MD PCP Comment: Discharge Diagnosis: Condition at Discharge: Improved ALEXA CAREY has been given the following list of follow-up instructions, prescriptions, and patient education materials: PATIENT FOLLOW-UP INFORMATION Diet: Discharge Activity: Discharge Restrictions: No driving for 24 hrs, Do not operate machinery or tools, Do not make important decisions for 24 hours, Do not drink alcoholic beverages for 24 hours Wound Care Instructions: Remove Your Dressing In Days Call Your Doctor For: IF UNABLE TO CONTACT YOUR PHYSICIAN AND YOU FEEL IT IS AN EMERGENCY, GO TO THE NEAREST EMERGENCY ROOM OR CALL 911 Home Treatment: Devices/Equipment: None Special Services: Additional Instructions: Primary Care Physician to provide the following pending test results: None Follow up: With: Address: When: Jairo Contreras [facility] 05/07/2023 2:45 PM In the event that this physician does not participate in your insurance network, please consult with your insurance company to find a nearby participating provider. Type Location [facility] Follow Up ([facility]) [facility] [place] 05/07/2023 2:45 PM 05/07/2023 3:00 PM Confirmed Comment: AURELIO Mata FRANCES, have received the attached patient education materials/instructions and have verbalized understanding: Patient Signature Date Clinican/Nurse Signature ___ Date HERE ARE THE MEDICATION CHANGES THAT OCCURRED DURING YOUR HOSPITAL STAY Medications to Continue with No Changes Other Medications amitriptyline (amitriptyline 75 mg oral tablet) 1 Tablets By Mouth once a day (at bedtime). Refills: 1. Last Dose: ___Next Dose: ___ amlodipine (amLODIPine 5 mg Tab) 1 Tablets By Mouth every day. Refills: 3. Last Dose: ___Next Dose: ___ aspirin (aspirin 81 mg Oral EC Tab) 1 Tablets By Mouth every day. Last Dose: ___Next Dose: ___ atenolol (atenolol 50 mg Tab) 1 Tablets By Mouth 2 times a day. Refills: 3. Last Dose: ___Next Dose: ___ atorvastatin (atorvastatin 40 mg Tab) 1 Tablets By Mouth every day. Refills: 3. Last Dose: ___Next Dose: ___ bumetanide (bumetanide 1 mg Tab) 1 Tablets By Mouth every day. Refills: 3. Last Dose: ___Next Dose: ___ citalopram (citalopram 40 mg Tab) TAKE 1 TABLET BY MOUTH EVERY DAY. Refills: 0. Last Dose: ___Next Dose: ___ clonidine (cloNIDine 0.3 mg Tab) 1 Tablets By Mouth 2 times a day. Refills: 3. Last Dose: ___Next Dose: ___ clopidogrel (clopidogrel 75 mg Tab) 1 Tablets By Mouth every day. Refills: 3. Last Dose: ___Next Dose: ___ diclofenac topical (diclofenac topical 1% gel) 2 Gram Topical 3 times a day. Last Dose: ___Next Dose: ___ famotidine (famotidine 40 mg Tab) TAKE 1 TABLET BY MOUTH EVERYDAY AT BEDTIME. Refills: 0. Last Dose: ___Next Dose: ___ isosorbide mononitrate (isosorbide mononitrate 60 mg ER Tab) 1 Tablets By Mouth 2 times a day. morning and afternoon. Last Dose: ___Next Dose: ___ nitroglycerin (nitroglycerin 0.4 mg sublingual Tab) 1 Tablets Sublingual every 5 minutes as needed for chest pain. as needed for chest pain. Last Dose: ___Next Dose: ___ ranolazine (ranolazine 500 mg oral ER Tab) TAKE 1 TABLET BY MOUTH TWICE A DAY. Refills: 1. Last Dose: ___Next Dose: ___ spironolactone (spironolactone 25 mg Tab) 1 Tablets By Mouth every day. Refills: 3. Last Dose: ___Next Dose: ___ valsartan (valsartan 320 mg Tab) Oral. Last Dose: ___Next Dose: ___ Comment: MEDICATION LIST PROVIDED FOR YOU IS A LIST OF YOUR CURRENT MEDICATIONS. PLEASE CARRY THIS WITH YOU AT ALL TIMES. amitriptyline (amitriptyline 75 mg oral tablet) 1 Tablets By Mouth once a day (at bedtime). Refills: 1. amlodipine (amLODIPine 5 mg Tab) 1 Tablets By Mouth every day. Refills: 3. aspirin (aspirin 81 mg Oral EC Tab) 1 Tablets By Mouth every day. atenolol (atenolol 50 mg Tab) 1 Tablets By Mouth 2 times a day. Refills: 3. atorvastatin (atorvastatin 40 mg Tab) 1 Tablets By Mouth (more content not included)... Normal [facility] Patient Education - Texton 1 05-23-2022 Patient Education - Text [place], [place] CARDIOVASCULAR DISCHARGE INSTRUCTIONS Diet: ? Resume pre-procedure diet. ? Increase water intake the next 2 days to flush dye out of the body. Activity: If radial access: ? Limit your activity today. Do not operate a vehicle, machinery or power tools. ? NO LIFTING OVER 3 POUNDS for 3 days. ? Do not bend your wrist for 24 hours. ? May resume driving in 24 hours. ? No sexual activity for 1 week. ? Let pain/discomfort guide your activity. If you are having pain, stop. ? Return to the Emergency Room if you have trouble breathing, walking or nausea and vomiting. Medications: ? Resume pre-procedure medication, unless otherwise directed. ? Hold the following medications for 48 hours post procedure: Actoplus Met Glucophage Glucophage XR Glucovance Avandamet Fortamet Apo-metformin Glycon Neo-metformin Glumetza Janumet Metaglip Riomet Glycomet *Minimal pain, soreness and/or discomfort is expected. *You may take OTC non-steroidal anti-inflammatory to manage discomfort, unless contraindicated. If pain is not controlled with the above medications, contact your physician. Site Care: ? Do not remove dressing for 24 hours unless it becomes saturated, then replace. ? Keep site clean and dry; inspect site daily. ? Do not use any lotions, powders, or ointments at the groin or wrist site for 1 week. ? May shower 24 hours after the procedure. Clean site with soap and water. Pat dry and apply band aid. No tub baths, swimming or hot tubs for 3 days Post Procedure: ? Soreness and tenderness to the site can last up to one week. ? Bruising may occur to site. ? A responsible adult should be with you for the first 24 hours after you arrive home. ? Keep follow-up appointment. ? No smoking for 24 hours as it increases the risk of developing blood clots. ? If you are interested in smoking cessation, contact [facility] at [phone], ext. [phone]. ? In the event you are unable to reach your physician, please call [facility] at [phone] and the directional drill operator will assist you. Seek Immediate Medical Care for: ? Bleeding: Apply continuous pressure to the site and Call 911. ? Should the arm or leg become cold, numb, blue or white call your physician immediately. ? Signs of infection are redness, warmth, swelling, increased tenderness, colored drainage, fever or chills ? Chest pain ? [facility] Consent for Treatmenton 03-05 Consent for Treatment [id number] 0TIFF [facility] 03-19-2023 Outside Labs [id number]#1. 00TIFF [facility] Physician Orderon 03-19-2023 Physician Order [id number]#1. 00TIFF [facility] Auth for Release of Medical Recordson 12-22-2022 Auth for Release of Medical Records [id number] 0CD:127 [facility] Heart and Vascular Office/Cl inic Noteon 11-17-2022 Heart and Vascular Office/Clinic Note Chief Complaint f/u HTN History of Present Illness Alexa Carey is a 52-year-old female patient who presents today for a follow-up evaluation of CAD, difficult to control hypertension, hyperlipidemia, and chronic angina. The patient reports that she lacks energy and is unwillingly getting out of her bed for the past 2 weeks. She is unsure if it is due to her medications. Last night, she quickly fall asleep. Taking amitriptyline was difficult for her, which was having difficulty sleeping. She confirms she has slight sleep trouble. She was told that she has sleep apnea. She denies reading, eating, or drinking caffeine before bed time. She watched TV occasionally. She might be seeing her primary physician at [place]. Her blood pressure at the clinic today is 128/68 mmHg. She notes that she has had her thyroid checked in the past. Review of Systems Constitutional: no fever, no sweats, no weakness Skin: no rash, no lesions, no bruising/petechiae ENMT: no sore throat, no congestion, no hoarseness Respiratory: no shortness of breath, no cough, no orthopnea, no wheezing Cardiovascular: no chest pain, no palpitations, no edema Gastrointestinal: no nausea, no vomiting, no diarrhea, no GI bleeding Genitourinary: no anuria/oliguria no hematuria Musculoskeletal: no back pain, no trauma Neurologic: no headache, no dizziness, no numbness, no weakness Psychiatric: no sleeping problems, no irritability, no anxiety/depression. Heme/Lymph: no bleeding tendency, no bruising tendency Allergy/Immunologic: no recurrent infections, no impaired immunity Additional ROS info: Except as noted in the above Review of Systems and in the History of Present Illness all other systems have been reviewed and are negative or noncontributory Physical Exam Vitals & Measurements HR: 95(Peripheral) BP: 128/68 SpO2: 96% HT: 65 in HT: 164 cm WT: 92.3 kg WT: 203.06 lb BMI: 34.32 General: alert, no acute distress Skin: warm, dry intact Head: atraumatic, normocephalic Neck: trachea midline, no JVD, no bruit Eye: normal conjunctiva, sclera clear ENMT: oral mucosa moist Cardiovascular: regular rate and rhythm, no murmur, normal peripheral perfusion Respiratory: lungs CTA, respirations non labored Chest wall: no deformity. Gastrointestinal: soft, non-distended, no tenderness, no guarding. Back: no tenderness, normal ROM, normal alignment. Extremities: no edema, no deformity, no trauma Neurological: oriented x 4, LOC appropriate for age, sensation equal & normal bilaterally, speech normal Psychiatric: cooperative, affect appropriate for age, normal judgement, normal psychiatric thoughts. Assessment/Plan Alexa Carey is a 52-year-old female with a history of CAD, difficult to control hypertension, hyperlipidemia, and angina. 1. Hypertension (I10: Essential (primary) hypertension) Multiple medications due to resistant HTN, but we do finally have control of her blood pressure and her angina. I think it is possible that she is having fatigue and low energy from medications, but I am hesitant to back as it took us a while to get under control. Continue medications as documented in EMR 2. Fatigue (R53.83: Other fatigue) Likely medications contributing, but would recommend continuing current medications. Otherwise, she is getting a new primary doctor who might be able to check out hormones such as thyroid or B12 to see if this could be contributing. I do think that sleep disorder such as insomnia or sleep apnea could also be contributing. We discussed possible ways to work on that. Follow up in 3 months. Portions of this record may have been created with voice recognition artificial intelligence software, specifically [employer], [employer] and or [employer]. Substitutions may have occurred voice recognition and artificial intelligence software. ATTESTATION: Documentation services were performed after patient or guardian consented to allow [employer] to record this visit. FERNIE human services care specialist and provider reviewed before signing. FERNIE: Jesus Ivy/ Pasted by: Melany Longoria. Follow-up No qualifying data available Problem List/Past Medical History Ongoing Anemia Anxiety ASCVD (arteriosclerotic cardiovascular disease) CHF (congestive heart failure) Fatigue Hypercholesterolemia Hypertension Mitral valve sclerosis Osteoarthritis of both knees Palpitations PFO (patent foramen ovale) Pityriasis versicolor TIA (transient ischemic attack) Unstable angina Vitamin D deficiency Historical No qualifying data Procedure/Surgical History Cardiac catheterization, left heart (04/08/2022), PCI (percutaneous coronary intervention) of left anterior descending branch of coronary artery (04/08/2022), Appendectomy, section, Colposcope, Gall bladder, Hysterectomy, Oophorectomy. Medications amitriptyline 75 mg oral tablet, 75 mg= 1 tab(s), Oral, O (more content not included)... Normal [facility] Comment on above: Result Comment: Elec tronically Signed By: Ben PARRISH, Jairo Robles\.br\Date and Time Signed: 11/17/22 06:55 EDT\.br\Electronically Co-Signed By: Melany Longoria\.br\Date and Time Co-Signed: 11/12/22 15:46 EDT Physician Orderon 11-13-2022 Physician Order [id number]#1. 00CD:127 Normal [facility] XR HAND LT MIN 3Von 04-28-19 23 XR HAND LT MIN 3V EXAM: XR HAND LT MIN 3V HISTORY: Pain in left thumb COMPARISON: None. TECHNIQUE: 3 views of left hand were obtained. FINDINGS: There is no evidence of an acute fracture or dislocation. There is moderate narrowing of the first, metacarpal joint with several millimeters of ulnar subluxation of the base of the first metacarpal bone. There is mild narrowing of the first metacarpophalangeal joint. The joint spaces are otherwise intact. No abnormal soft tissue calcifications are identified. IMPRESSION: No acute fracture or dislocation. Focal degenerative changes and slight subluxation is seen at the first carpometacarpal joint. No abnormal soft tissue calcifications are identified. Direct comparison with a previous study would be helpful in determining the chronicity of these findings. If the patient's symptoms persist and further evaluation is clinically indicated then perhaps an MRI study of the wrist or hand would be helpful. Electronically authenticated by: MARIA L CURTIS Date: 2022-04-28 19:01 Normal [facility] CHEMISTRYOrdered By: SYSTEM SYSTEM on 04-08-2022 Anion gap [Moles/Vol] 9 mmol/L Normal 6 - 16 mEq/L [facility] Remisol Calcium [Mass/Vol] 9.2 mg/dL Normal 8.9 - 11. 1 mg/dL [facility] Remisol Chloride [Moles/Vol] 105 mmol/L Normal 101 - 1 11 mmol/L [facility] Remisol CO2 [Moles/Vol] 28 mmol/L Normal 21 - 31 mmol/L [facility] Remisol Creatinine [Mass/Vol] 0.9 mg/dL Normal 0.5 - 1.3 mg/dL [facility] Remisol GFR/1.73 sq M.predicted among blacks MDRD (S/P/Bld) [Vol rate/Area] mL/min/1.73 m2 Normal >=59mL/min/1 .73 m2 [facility] S GFR/1.73 sq M.predicted among non-blacks MDRD (S/P/Bld) [Vol rate/Area] mL/min/1.73 m2 Normal >=59mL/min/1 .73 m2 [facility] Chem S Glucose [Mass/Vol] 112 mg/dL Normal 55 - 199 mg/dL [facility] Remisol Potassium [Moles/Vol] 3.3 mmol/L Low 3.5 - 5.3 mmol/L [facility] Remisol Sodium [Moles/Vol] 139 mmol/L Normal 135 - 145 mmol/L [facility] Remisol Urea nitrogen [Mass/Vol] 14 mg/dL Normal 5 - 21 mg/dL [facility] Remisol Urea nitrogen/Creatinine [Mass ratio] 16 mg/mg Normal 10 - 20 [facility] Remisol HEMATOLOGYOrdered By: SYSTEM SYSTEM on 04-08-2022 Basophils/100 WBC (Bld) 0.4 % Normal 0.0 - 2.0 % [facility] HemeAutoSS Basophils/Leukocytes Auto (Bld) [Pure # fraction] 0.0 E9/L Normal 0.0 - 0.2 E9/L [facility] HemeAutoSS Eosinophils/100 WBC (Bld) 2.6 % Normal 0.0 - 8.0 % [facility] HemeAutoSS Eosinophils/Leukocytes Auto (Bld) [Pure # fraction] 0.2 E9/L Normal 0.0 - 0.5 E9/L [facility] HemeAutoSS Lymphocytes/100 WBC (Bld) 26.6 % Normal 14.0 - 50.0 % [facility] HemeAutoSS Lymphocytes/Leukocytes Auto (Bld) [Pure # fraction] 1.8 E9/L Normal 1.0 - 4.0 E9/L [facility] HemeAutoSS Monocytes/100 WBC (Bld) 9.0 % Normal 4.0 - 14.0 % [facility] HemeAutoSS Monocytes/Leukocytes Auto (Bld) [Pure # fraction] 0.6 E9/L Normal 0.2 - 1.0 E9/L [facility] HemeAutoSS Neutrophils/100 WBC (Bld) 61.4 % Normal 36.0 - 75.0 % [facility] HemeAutoSS Neutrophils/Leukocytes Auto (Bld) [Pure # fraction] 4.1 E9/L Normal 2.0 - 7.5 E9/L [facility] HemeAutoSS HEMATOLOGYOrdered By: Delta De La Rosa on 04-08-2022 Erythrocyte distribution width (RBC) [Ratio] 14.1 % Normal 10.9 - 14.2 % [facility] HemeAutoSS Hematocrit (Bld) [Volume fraction] 42.5 % Normal 34.0 - 46.0 % [facility] HemeAutoSS Hemoglobin (Bld) [Mass/Vol] 14.5 g/dL Normal 12.0 - 16.0 gm/dL [facility] HemeAutoSS MCH (RBC) [Entitic mass] 29.6 pg Normal 27.0 - 34.0 pg [facility] MCHC (RBC) [Mass/Vol] 34.2 g/dL Normal 31.4 - 36.0 gm/dL [facility] MCV (RBC) [Entitic vol] 86.7 fL Normal 80.0 - 100.0 fL [facility] Platelet mean volume (Bld) [Entitic vol] 7.3 fL Normal 6.4 - 10.8 fL [facility] Platelets (Bld) [#/Vol] 316.0 E9/L Normal 150.0 - 500.0 E9/L [facility] RBC (Bld) [#/Vol] 4.9 E12/L Normal 4.3 - 5.9 E12/L [facility] WBC corrected for nucl RBC Auto (Bld) [#/Vol] 6.7 E9/L Normal 4.0 - 11.0 E9/L [facility] NM STRESS ONLY SINGLEon -2 NM STRESS ONLY SINGLE Patient: ALEXA BAE Exam Date: 04/01/2022 : 1970 Gender:F Ordering : DR DARIUSZ KEEN . Admission #: [id number] Family : Order #: [id number] CLICK HERE TO VIEW EXAM RADIOLOGY REPORT PROCEDURE: RADIONUCLIDE IMAGING STRESS ONLY COMPARISON: None. INDICATIONS: Chest pain TECHNIQUE: Exam Description: Stress/Rest two day protocol gated SPECT Rest Imagin.9 mCi Tc-99m Cardiolite IV on 04/01/2022 Stress Imaging mCi Tc-99m Cardiolite IV on Exercise Protocol: Unable to performed. Exercise portion study was canceled due to abnormal resting EKG. Heart Rate (bpm): Rest: Max: PMHR: Blood Pressure: Rest: Max: Symptoms: Stress canceled due to abnormal resting EKG. FINDINGS: QUALITY OF STUDY: Excellent. PERFUSION DEFECT: None on resting sequence. LOCATION: N/A SIZE: N/A. SEVERITY: N/A. TYPE: N/A. WALL MOTION: N/A LV SIZE: N/A TID / TCD: N/A LVEF: N/A CONCLUSION: 1. Study was canceled following resting imaging due to abnormal resting EKG. Please see Dr. Keen's report. 2. No perfusion defect of the left ventricle during rest imaging. Dictated by: Laith Cárdenas M.D. on 04/07/2022 at 11:41 Approved by: Laith Cárdenas M.D. on 04/07/2022 at 11:46 Normal [facility] CBC AUTO DIFFon 12-02-2021 BASO # 0.0 103/ul Normal 0.0-0.1 [facility] Comment on above: Performed By: #### C BC #### [facility] [address] [place] [address] Dr. Therese Kaiser Basophils/100 WBC (Bld) 0.4 % Normal 0.2-2.0 [facility] Comment on above: Performed By: #### C BC #### [facility] [address] [address] [address] Therese Kaiser EO # 0.2 103/ul Normal 0.0-0.7 [facility] Comment on above: Performed By: #### C BC #### [facility] [address] [place] [address] Dr. Therese Kaiser Eosinophils/100 WBC (Bld) 3.4 % Normal 0.9-7.0 [facility] Comment on above: Performed By: #### C BC #### [facility] [address] [place] [address] Dr. Therese Kaiser Erythrocyte distribution width (RBC) [Ratio] 13.2 % Normal 11.0-15.0 [facility] Comment on above: Performed By: #### C BC #### [facility] [address] [place] [address] Dr. Therese Kaiser Hematocrit (Bld) [Volume fraction] 43.0 % Normal 36.0-48.0 [facility] Comment on above: Performed By: #### C BC #### [facility] [address] [place] [address] Dr. Therese Kaiser Hemoglobin (Bld) [Mass/Vol] 13.9 g/dL Normal 12.0-16.0 [facility] Comment on above: Performed By: #### C BC #### [facility] [address] [place] [address] Dr. Therese Kaiser IG # 0.01 10e3/ul Normal 0.00-0.03 [facility] Comment on above: Performed By: #### C BC #### [facility] [address] [place] [address] Dr. Therese Kaiser IG % 0.2 % Normal 0.0-0.5 [facility] Comment on above: Performed By: #### C BC #### [facility] [address] [place] [address] Dr. Therese Kaiser LYMPH # 1.6 103/ul Normal 1.2-3.8 [facility] Comment on above: Performed By: #### C BC #### [facility] [address] [place] [address] Dr. Therese Kaiser Lymphocytes/100 WBC (Bld) 31.9 % Normal 20.5-60.0 [facility] Comment on above: Performed By: #### C BC #### [facility] [address] [place] [address] Dr. Therese Kaiser MANUAL DIFF REQ NO Normal [facility] Comment on above: Performed By: #### C BC #### [facility] [address] [place] [address] Dr. Therese Kaiser MCH (RBC) [Entitic mass] 28.5 pg Normal 26.7-34.0 [facility] Comment on above: Performed By: #### C BC #### [facility] [address] [place] [address] Dr. Therese Kaiser MCHC (RBC) [Mass/Vol] 32.3 g/dL Normal 29.9-35.2 [facility] Comment on above: Performed By: #### C BC #### [facility] [id number] Therese Kaiser MCV (RBC) [Entitic vol] 88.3 fL Normal 81.0-99.0 [facility] Comment on above: Performed By: #### C BC #### [facility] [address] [address] [address] Therese Kaiser MONO # 0.5 103/ul Normal 0.3-0.8 [facility] Comment on above: Performed By: #### C BC #### [facility] [address] [place] [address] Dr. Therese Kaiser Monocytes/100 WBC (Bld) 10.3 % Normal 1.7-12.0 [facility] Comment on above: Performed By: #### C BC #### [facility] [address] [place] [address] Dr. Therese Kaiser NEUT # 2.7 103/ul Normal 1.4-6.5 [facility] Comment on above: Performed By: #### C BC #### [facility] [address] [place] [address] Dr. Therese Kaiser Neutrophils/100 WBC (Bld) 53.8 % Normal 43.0-75.0 [facility] Comment on above: Performed By: #### C BC #### [facility] [address] [place] [address] Dr. Therese Kaiser Platelet mean volume (Bld) [Entitic vol] 8.9 fL Critically low 9.5-13.5 [facility] Comment on above: Performed By: #### C BC #### [facility] [address] [place] [address] Dr. Therese Kaiser PLT 295 103/ul Normal 150-450 [facility] Comment on above: Performed By: #### C BC #### [facility] [address] [place] [address] Dr. Therese Kaiser RBC 4.87 106/ul Normal 4.20-5.40 [facility] Comment on above: Performed By: #### C BC #### [facility] [address] [place], [place] [id number] Dr. Therese Kaiser WBC 5.0 103/ul Normal 4.0-11.0 [facility] Comment on above: Performed By: #### C BC #### [facility] [address] [place] [address] Dr. Therese Kaiser PROTIMEon 12-02-2021 INR Coag (PPP) [Relative time] 0.95 {INR} Normal [facility] Comment on above: Performed By: #### P T, PTT #### [facility] [address] [place] [address] Dr. Therese Kaiser INR GUIDELINES SEE BELOW Normal [facility] Comment on above: Result Comment: GUTIERREZ RED INR: 2.0 - 3.0 CONDITIONS NOT LISTED BELOW 2.5 - 3.5 FOR PROSTHETIC HEART VALVE REPLACEMENT 2.5 - 3.5 RECURRENT THROMBOSIS Performed By: #### P T, PTT #### [facility] [address] [place] [address] Dr. Therese Kaiser PT Coag (PPP) [Time] 10.3 s Normal 9.0-11.6 [facility] Comment on above: Performed By: #### P T, PTT #### [facility] [address] [place] [address] Dr. Therese Kaiser PTTon 12-02-2021 aPTT Coag (Bld) [Time] 27.6 s Normal 22.3-36.2 Th [facility] Comment on above: Performed By: #### P T, PTT #### [facility] [address] [place] [address] Dr. Therese Kaiser GLYCOHEMOGLOBIN A1Con 2021 ADA RECOMMENDATION SEE BELOW Normal [facility] Comment on above: Result Comment: ADA RECOMMENDED LIMIT 4.0 - 6.0 ADA THERAPEUTIC TARGET < 7.0 ACTION SUGGESTED > 7.0 Performed By: #### A 1C ####[facility] [id number] [address]Dr. Therese Kaiser Glucose [Mass/Vol] 128 mg/dL Normal [facility] Comment on above: Performed By: #### A 1C ####[facility] [id number] [id number]. Therese Kaiser HbA1c (Bld) [Mass fraction] 6.1 % Normal 4.5-6.2 [facility] Comment on above: Performed By: #### A 1C ####[facility] [id number] [address]Dr. Therese Kaiser CBC AUTO DIFFon 08-15-2021 BASO # 0.0 103/ul Normal 0.0-0.1 [facility] Comment on above: Performed By: #### C BC #### [facility] [address] [address] [address] Therese Kaiser Basophils/100 WBC (Bld) 0.5 % Normal 0.2-2.0 [facility] Comment on above: Performed By: #### C BC #### [facility] [address] [place] [address] Dr. Therese Kaiser EO # 0.2 103/ul Normal 0.0-0.7 [facility] Comment on above: Performed By: #### C BC #### [facility] [address] [address] [address] Therese Kaiser Eosinophils/100 WBC (Bld) 2.7 % Normal 0.9-7.0 [facility] Comment on above: Performed By: #### C BC #### [facility] [address] [address] [address] Therese Kaiser Erythrocyte distribution width (RBC) [Ratio] 14.1 % Normal 11.0-15.0 [facility] Comment on above: Performed By: #### C BC #### [facility] [address] [address] [address] Therese Kaiser Hematocrit (Bld) [Volume fraction] 43.3 % Normal 36.0-48.0 [facility] Comment on above: Performed By: #### C BC #### [facility] [address] [address] [address] Therese Kaiser Hemoglobin (Bld) [Mass/Vol] 14.0 g/dL Normal 12.0-16.0 [facility] Comment on above: Performed By: #### C BC #### [facility] [address] [place] [address] Dr. Therese Kaiser IG # 0.02 10e3/ul Normal 0.00-0.03 [facility] Comment on above: Performed By: #### C BC #### [facility] [address] [place] [address] Dr. Therese Kaiser IG % 0.3 % Normal 0.0-0.5 [facility] Comment on above: Performed By: #### C BC #### [facility] [address] [place] [address] Dr. Therese Kaiser LYMPH # 1.8 103/ul Normal 1.2-3.8 [facility] Comment on above: Performed By: #### C BC #### [facility] [address] [place] [address] Dr. Therese Kaiser Lymphocytes/100 WBC (Bld) 27.6 % Normal 20.5-60.0 [facility] Comment on above: Performed By: #### C BC #### [facility] [address] [place] [address] Dr. Therese Kaiser MANUAL DIFF REQ NO Normal [facility] Comment on above: Performed By: #### C BC #### [facility] [address] [place] [address] Dr. Therese Kaiser MCH (RBC) [Entitic mass] 28.7 pg Normal 26.7-34.0 [facility] Comment on above: Performed By: #### C BC #### [facility] [address] [place] [address] Dr. Therese Kaiser MCHC (RBC) [Mass/Vol] 32.3 g/dL Normal 29.9-35.2 [facility] Comment on above: Performed By: #### C BC #### [facility] [address] [place] [address] Dr. Therese Kaiser MCV (RBC) [Entitic vol] 88.7 fL Normal 81.0-99.0 [facility] Comment on above: Performed By: #### C BC #### [facility] [address] [place] [address] Dr. Therese Kaiser MONO # 0.5 103/ul Normal 0.3-0.8 [facility] Comment on above: Performed By: #### C BC #### [facility] [address] [place] [address] Dr. Therese Kaiser Monocytes/100 WBC (Bld) 7.9 % Normal 1.7-12.0 [facility] Comment on above: Performed By: #### C BC #### [facility] [address] [place] [address] Dr. Therese Kaiser NEUT # 3.9 103/ul Normal 1.4-6.5 [facility] Comment on above: Performed By: #### C BC #### [facility] [address] [place] [address] Dr. Therese Kaiser Neutrophils/100 WBC (Bld) 61.0 % Normal 43.0-75.0 [facility] Comment on above: Performed By: #### C BC #### [facility] [address] [place] [address] Dr. Therese Kaiser Platelet mean volume (Bld) [Entitic vol] 8.9 fL Critically low 9.5-13.5 [facility] Comment on above: Performed By: #### C BC #### [facility] [address] [place] [address] Dr. Therese Kaiser PLT 293 103/ul Normal 150-450 [facility] Comment on above: Performed By: #### C BC #### [facility] [address] [place] [address] Dr. Therese Kaiser RBC 4.88 106/ul Normal 4.20-5.40 [facility] Comment on above: Performed By: #### C BC #### [facility] [address] [place] [address] Dr. Therese Kaiser WBC 6.3 103/ul Normal 4.0-11.0 [facility] Comment on above: Performed By: #### C BC #### [facility] [address] [place] [address] Dr. Therese Kaiser LIPID PROFILEon 08-15-2021 CHOL-HDL RATIO NORM SEE BELOW Normal [facility] Comment on above: Result Comment: 3.3 - 4.4 LOW RISK 4.4 - 7.1 AVERAGE RISK 7.1 - 11.0 MODERATE RISK >11.0 HIGH RISK Performed By: #### L IPID, TSH, CMP #### [facility] [address] [address] [address] Therese Kaiser Cholesterol [Mass/Vol] 148 mg/dL Normal <=200 Th [facility] Comment on above: Performed By: #### L IPID, TSH, CMP #### [facility] [address] [address] [address] Therese Kaiser Cholesterol in HDL [Mass/Vol] 38 mg/dL Critically low 40-60 [facility] Comment on above: Performed By: #### L IPID, TSH, CMP #### [facility] [address] [place] [address] Dr. Therese Kaiser Cholesterol in LDL [Mass/Vol] 70.8 mg/dL Normal [facility] Comment on above: Performed By: #### L IPID, TSH, CMP #### [facility] [address] [address] [address] Therese Kaiser Cholesterol.total/Chol esterol in HDL [Mass ratio] 3.9 {ratio} Normal [facility] Comment on above: Performed By: #### L IPID, TSH, CMP #### [facility] [address] [address] [address] Therese Kaiser HDL NORMAL > or = 60 mg/dl - LO W CARDIOVASCULAR RISK <40 mg/dl - HIGH CARDIOVASCULAR RISK Normal [facility] Comment on above: Performed By: #### L IPID, TSH, CMP #### [facility] [address] [place] [address] Dr. Therese Kaiser LDL CALC NORMAL SEE BELOW Normal [facility] Comment on above: Result Comment: <100 mg/dl OPTIMAL 100 - 129 mg/dl NEAR OR ABOVE OPTIMAL 130 - 159 mg/dl BORDERLINE HIGH 160 - 189 mg/dl HIGH >190 mg/dl VERY HIGH Performed By: #### L IPID, TSH, CMP #### [facility] [address] [address] [address] Therese Kaiser Triglyceride [Mass/Vol] 196 mg/dL Critically high <=150 [facility] Comment on above: Performed By: #### L IPID, TSH, CMP #### [facility] [address] [address] [address] Therese Kaiser VLDL CALC 39.2 mg/dL Normal [facility] Comment on above: Performed By: #### L IPID, TSH, CMP #### [facility] [address] [address] [address] Therese Kaiser PROF 14(COMP METB)on 022 Albumin [Mass/Vol] 3.8 g/dL Normal 3.4-5.0 [facility] Comment on above: Performed By: #### L IPID, TSH, CMP #### [facility] [address] [address] [address] Therese Kaiser Albumin/Globulin [Mass ratio] 1.1 {ratio} Normal [facility] Comment on above: Performed By: #### L IPID, TSH, CMP #### [facility] [address] [address] [address] Therese Kaiser ALP [Catalytic activity/Vol] 97 U/L Normal 46-116 [facility] Comment on above: Performed By: #### L IPID, TSH, CMP #### [facility] [address] [address] [address] Therese Kaiser ALT [Catalytic activity/Vol] 47 U/L Normal 14-59 [facility] Comment on above: Performed By: #### L IPID, TSH, CMP #### [facility] [address] [address] [address] Therese Kaiser Anion gap [Moles/Vol] 12.5 mmol/L Normal [facility] Comment on above: Performed By: #### L IPID, TSH, CMP #### [facility] [address] [address] [address] Therese Kaiser AST [Catalytic activity/Vol] 31 U/L Normal 15-37 [facility] Comment on above: Performed By: #### L IPID, TSH, CMP #### [facility] [address] [address] [address] Therese Kaiser Bilirubin [Mass/Vol] 0.4 mg/dL Normal 0.2-1.0 [facility] Comment on above: Performed By: #### L IPID, TSH, CMP #### [facility] [address] [place] [address] Dr. Therese Kiaser Calcium [Mass/Vol] 9.2 mg/dL Normal 8.5-10.1 [facility] Comment on above: Performed By: #### L IPID, TSH, CMP #### [facility] [address] [place] [address] Dr. Therese Kaiser Chloride [Moles/Vol] 106 mmol/L Normal 98-107 [facility] Comment on above: Performed By: #### L IPID, TSH, CMP #### [facility] [address] [place] [address] Dr. Therese Kaiser CO2 [Moles/Vol] 26.1 mmol/L Normal 21.0-32.0 [facility] Comment on above: Performed By: #### L IPID, TSH, CMP #### [facility] [address] [place] [address] Dr. Therese Kaiser Creatinine [Mass/Vol] 0.86 mg/dL Normal 0.55-1.02 [facility] Comment on above: Performed By: #### L IPID, TSH, CMP #### [facility] [address] [place] [address] Dr. Therese Kaiser EGFR-AF [place] >60 Normal >=60 [facility] Comment on above: Performed By: #### L IPID, TSH, CMP #### [facility] [address] [place] [address] Dr. Therese Kaiser EGFR-NON AF [place] >60 Normal >=60 [facility] Comment on above: Performed By: #### L IPID, TSH, CMP #### [facility] [address] [place] [address] Dr. Therese Kaiser Globulin (S) [Mass/Vol] 3.6 g/dL Normal [facility] Comment on above: Performed By: #### L IPID, TSH, CMP #### [facility] [address] [address] [address] Therese Kaiser Glucose [Mass/Vol] 125 mg/dL Critically high 74-106 T [facility] Comment on above: Performed By: #### L IPID, TSH, CMP #### [facility] [address] [address] [address] Therese Kaiser Potassium [Moles/Vol] 3.6 mmol/L Normal 3.5-5.1 [facility] Comment on above: Performed By: #### L IPID, TSH, CMP #### [facility] [address] [place] [address] Dr. Therese Kaiser Protein [Mass/Vol] 7.4 g/dL Normal 6.4-8.2 [facility] Comment on above: Performed By: #### L IPID, TSH, CMP #### [facility] [address] [place] [address] Dr. Therese Kaiser Sodium [Moles/Vol] 141 mmol/L Normal 136-145 [facility] Comment on above: Performed By: #### L IPID, TSH, CMP #### [facility] [address] [place] [address] Dr. Therese Kaiser Urea nitrogen [Mass/Vol] 12.0 mg/dL Normal 7.0-18.0 [facility] Comment on above: Performed By: #### L IPID, TSH, CMP #### [facility] [address] [place] [address] Dr. Therese Kaiser Urea nitrogen/Creatinine [Mass ratio] 14.0 mg/mg Normal [facility] Comment on above: Performed By: #### L IPID, TSH, CMP #### [facility] [address] [place] [address] Dr. Therese Kaiser TSHon 08-15-2021 TSH 1.701 uIU/mL Normal 0.358-3.740 [facility] Comment on above: Performed By: #### L IPID, TSH, CMP #### [facility] [address] [place], [place] [address] Dr. Therese Kaiser TSH RANGE SEE BELOW Normal [facility] Comment on above: Result Comment: <0.3 4 UIU/ml HYPERTHYROID 0.34-5.60 UIU/ml EUTHYROID >5.60 UIU/ml HYPOTHYROID Performed By: #### L IPID, TSH, CMP #### [facility] [address] [place], [place] [address] Dr. Therese Kaiser VITAMIN D 25 OHon 08-15-2021 VIT D 25-OH 12.9 ng/mL Normal [facility] Comment on above: Performed By: #### V ITAD #### [facility] [address] [address] [address] Therese Kaiser VIT D RANGES SEE BELOW Normal [facility] Comment on above: Result Comment: <20 ng/mL Vit D deficient 20 - <30 ng/mL Vit D insufficient 30 - 100 ng/mL Vit D sufficient >100 ng/mL Potential Toxicity Performed By: #### V ITAD #### [facility] [address] [place], [place] [address] Dr. Therese Kaiser Office Visit (Cardiology)on 03-19-2021 Follow-up visit Diagnoses/Problems Assessed Chest pain (786.50) (R07.9) Mostly non-exertional Relieve with NTG Hypertension, essential, benign (401.1) (I10) Suboptimal + TIMMY, cant tolerate CPAP Hyperlipidemia (272.4) (E78.5) Moderate intensity statin Annual labs with PCP Normal echocardiogram (V72.85) September 2020 Echo LVEF 60% Premature, closure, foramen ovale (745.8) (Q21.8) Nov 2019 PFO Closure Amplatzer 25mm ACS (acute coronary syndrome) (411.1) (I24.9) [facility] September 2020 Class 2 obesity with body mass index (BMI) of 36.0 to 36.9 in adult (278.00,V85.36) (E66.9,Z68.36) Reviewed the merits of healthy lifestyle choices on overall cardiovascular health. Coronary artery disease involving [place] coronary artery of [place] heart without angina pectoris (414.01) (I25.10) September 2020 NSTEMI LM normal mLAD 40-50% dCX 50 RCA normal Tachycardia (785.0) (R00.0) Palpitations -increased atenolol helped PATRICE NSR Orders Chest pain Renew: Isosorbide Mononitrate ER 60 MG Oral Tablet Extended Release 24 Hour; TAKE 1 TABLET DAILY DIRECTED Chest pain, Hypertension, essential, benign, Tachycardia Start: dilTIAZem HCl ER 120 MG Oral Capsule Extended Release 24 Hour; TAKE 1 CAPSULE ONCE DAILY Start: Ranolazine ER 500 MG Oral Tablet Extended Release 12 Hour; TAKE 1 TABLET EVERY 12 HOURS Unlinked Stop: NIFEdipine ER 90 MG Oral Tablet Extended Release 24 Hour Patient Instructions PLAN: Through informed decision making process incorporating patients unique circumstances, the following treatment plan will be initiated: 1. Prescription drug management of cardiovascular medication for efficacy, adherence to treatment, side effect assessment and polypharmacy. Current treatment clinically warranted and to continue with following modifications: - Stop nifedipine - Increase imdur 60mg po daily - Add Ranexa 500mg twice daily - Add Cardizem 120 once daIly 2. Return for follow-up; in the interim, contact the office if new symptoms arise. [employer] in 3 weeks Discussed the dynamic nature of coronary artery disease and the importance of seeking medical attention if new symptoms arise. Encourage healthy lifestyle choices including: - Heart Health Diet: eat plenty of nutrient-rich foods (fruits and veggies, whole grains, lean poultry and fish). Avoid saturated fats, trans fats and excess sodium and sugar. - Get at least 150 minutes per week of moderate-intensity aerobic activity. Brisk walking (at least 2.5 miles per hour), water aerobics, gardening, biking slower than 10 miles per hours. Any amount of movement is better than none. The simplest way to get moving and improve your health is to start walking. It's free, easy and can be done just about anywhere, even in place. Even if you have been sedentary for years, today is the day you can begin to make healthy changes in your life. Please bring all medicines, vitamins, and herbal supplements with you when you come to the office. Prescriptions will not be filled unless you are compliant with your follow up appointments or have a follow up appointment scheduled as per instruction of your physician. Refills should be requested at the time of your visit. Chief Complaint I am still having chest pain ALEXA CAREY is being seen for a 6 month follow-up of coronary artery disease, chest pain, dyslipidemia and hypertension. Patient is ambulatory with steady gait. Last evaluated in clinic by Dr. German Dec 2020. Compared to last cardiovascular evaluation, patient reports she continues to have chest pain. Last occurrence 10 days ago - non exertional 'boulder' on chest, + relief with NTG. Patient denies any hospitalizations or significant changes to interval medical history since last office follow-up. Patient attends to own ADLs and functional ADLs. Patient daily activity includes: completed CR in Jan 2021. housework, stairs Patient ambulate in from parking lot without concerns. Patient denies change to exercise tolerance or functional capacity since last evaluation. BP: at home for most part controlled Had meds this morning TIMMY + but does not have a mask, can't tolerate History of Present Illness The patient states she has been generally stable since the last visit. Comorbid Illnesses: a stroke, hypertension and hyperlipidemia. Symptoms: stable chest pain at rest, stable exertional chest pain, denies dyspnea, stable fatigue, stable exercise intolerance, stable palpitations, stable edema, denies orthopnea and stable dizziness. Her symptoms do not limit her activities. Disease Monitoring: The patient has had a weight gain. Medications: the patient is adherent with her medication regimen. She denies medication side effects. Surgical History Problems History of section History of Cholecystectomy History of Complete colonoscopy History of Hysterectomy History of Ovarian surgery History of Patent foramen ovale repair Current Meds (more content not included)... Normal [facility] Tobacco Screening.on 021 Fall risk assessment c) Not medically indicated [facility] naaptol y 250 DO Work Phone: Tobacco use status [facility] b) No -[facility] [employer] y 250 DO Work Phone: Héctor 12-27-2020 L -- ---- Specimen: [id number] Received: 12/27/20 Status: EMILIE Cruz Num: [id number] Spec Type: Surgical Subm Dr: Frank Felix Jr, DO Tissues: A Colon Biopsy (RANDOM COLON BX) Procedures: HE Stain/2, Gross/Micro L4 ---- Patient Age/Sex Location Account Attending Physician ---- Alexa Carey 50/F [id number] Frank Felix Jr, DO ---- SPEC NUM: [id number] RECD: 12/27/20 STATUS: EMILIE CRUZ NUM: [id number] HARSHAL: 12/27/20- DR: Frank Felix Jr, DO ENTERED: 12/27/20 DAVIS CANO: SPEC TYPE: Surgical DEPT: S ORDERED: HE Stain/2, Gross/Micro L4 ORDERED: HE Stain/2, Gross/Micro L4 Pathological Diagnosis Colon, random biopsy: - Benign colonic mucosa with lymphoid aggregate and no significant histopathology. Clinical Information Blood in stool Gross Description Received in formalin labeled with the patient's name, number and random colon biopsy rule out microscopic colitis is a 0.4 cm dailey-pink tissue fragment. Entirely submitted in one cassette labeled A1. (/) Microscopic Description Two glass slides with H E stained material have been examined. The microscopic findings support the above pathologic diagnosis. CPT Codes 37002 ---- ---- Specimen: [id number] Received: 12/27/20 Status: EMILIE Cruz Num: [id number] Spec Type: Surgical Subm Dr: Frank Felix Jr, Tissues: A Colon Biopsy (RANDOM COLON BX) Procedures: HE Stain/2, Gross/Micro L4 ---- Patient: JewelhananerandAlexa [id number] (Continued) ---- Signed (signature on file) Yaniv May MD 12/30/20 1422 [facility] COVID-19 Antigenon 1 COVID-19 Antigen Healthcare Worker?: Y Alessandro Reference Alessandro Reference Negative SARS-CoV+SARS-CoV-2 (COVID-19) Ag [Presence] in Respiratory specimen by Rapid immunoassay Negative for SARS Antigen by JOANNA COVID19 Blank Space Alessandro Disclaimer Negative results, from patients with symptom Alessandro Disclaimer onset beyond five days, should be treated as Alessandro Disclaimer presumptive and confirmation with a molecular Alessandro Disclaimer assay, if necessary, for patient management, Alessandro Disclaimer may be performed. Negative results do not rule Alessandro Disclaimer out COVID-19 and should not be used as the sole Alessandro Disclaimer basis for treatment or patient management Alessandro Disclaimer decisions, including infection control decisions. Alessandro Disclaimer Negative results should be considered in the Alessandro Disclaimer context of a patient's recent exposures, history Alessandro Disclaimer and the presence of clinical signs and symptoms Alessandro Disclaimer consistent with COVID-19. COVID19 Blank Space Alessandro Disclaimer The Alessandro SARS Antigen JOANNA does not differentiate Alessandro Disclaimer between SARS-CoV and SARS-CoV-2. COVID19 Blank Space Alessandro Disclaimer This test was developed and its performance Alessandro Disclaimer characteristic determined by [employer] and Alessandro Disclaimer validated at [facility]. This Alessandro Disclaimer test has not been FDA cleared or approved. This Alessandro Disclaimer test has been authorized by FDA under an Emergency Use Alessandro Disclaimer Authorization (EUA). This test has been validated Alessandro Disclaimer in accordance with the FDA's Guidance Document (Policy Alessandro Disclaimer for Diagnostics Testing in Laboratories Certified to Alessandro Disclaimer Perform High Complexity Testing under CLIA prior to Alessandro Disclaimer Emergency Use Authorization for Coronavirus Alessandro Disclaimer iseas during the Public Health Emergency) Alessandro Disclaimer issued on July 06, 2019. This test is only authorized Alessandro Disclaimer for the duration of time the declaration that Alessandro Disclaimer circumstances exist justifying the authorization of Alessandro Disclaimer the emergency use of in vitro diagnostic tests for Alessandro Disclaimer detection of SARS-CoV-2 virus and/or diagnosis of Alessandro Disclaimer COVID-19 infection under section 564(b)(1) of the Alessandro Disclaimer Act, 21 U.S.C. 360bbb-3(b)(1), unless the Alessandro Disclaimer authorization is terminated or revoked sooner. PERFORMED BY: [place] [address] PATHOLOGIST POLYSOMNOGRAPHY TECHNOLOGIST SUKI LAZAR M.D. Normal [facility] Comment on above: Performed By: #### S SISSY COVID-19 ALESSANDRO #### [facility] [address] [id number] [facility] Alessandro Ag Negativeon 12-26-19 21 Alessandro Ag Negative Negative Normal Negative [facility] Comment on above: Result Comment: This is a duplicate Alessandro SARS Antigen (JOANNA) result to be used for statistical tracking purpose only. PERFORMED BY: [facility] [address] [place] [address] PATHOLOGIST POLYSOMNOGRAPHY TECHNOLOGIST SUKI LAZAR M.D. Performed By: #### S SISSY COVID-19 ALESSANDRO #### [facility] [address] CNCOon 09-25-2020 CNCO Letter Text Normal [facility] BASIC METABOLIC PANELon 09-03 Calcium [Mass/Vol] 9.4 mg/dL Normal 8.6-10.3 The [facility] Comment on above: Order Comment: No: D o not add to previous draw Performed By: #### 4 34, 72815 ####[facility] [place] [address], [place] Chloride [Moles/Vol] 103 mmol/L Normal 98-107 The [facility] Comment on above: Order Comment: No: D o not add to previous draw Performed By: #### 4 89, 28567 ####[facility] [place] [address], [place] CO2 [Moles/Vol] 31 mmol/L Normal 21-31 The [facility] Comment on above: Order Comment: No: D o not add to previous draw Performed By: #### 4 23, 00443 ####[facility] [place] [address], [place] Creatinine [Mass/Vol] 0.93 mg/dL Normal 0.60-1.20 The [facility] Comment on above: Order Comment: No: D o not add to previous draw Performed By: #### 4 49, 29639 ####[facility] [place] [address], [place] GFR/1.73 sq M.predicted among blacks MDRD (S/P/Bld) [Vol rate/Area] mL/min/{1.73_m2} Normal >60 The [facility] Comment on above: Order Comment: No: D o not add to previous draw Performed By: #### 4 10, 82541 ####[facility] [place] [address], [place] GFR/1.73 sq M.predicted among non-blacks MDRD (S/P/Bld) [Vol rate/Area] mL/min/{1.73_m2} Normal >60 The [facility] Comment on above: Order Comment: No: D o not add to previous draw Performed By: #### 4 6413, 21261 ####[facility] [place] [address], [facility] Glucose [Mass/Vol] 106 mg/dL High 70-100 The [facility] Comment on above: Order Comment: No: D o not add to previous draw Performed By: #### 4 64, 54970 ####[facility] [id number], [facility] Potassium [Moles/Vol] 3.8 mmol/L Normal 3.5-5.1 The [facility] Comment on above: Order Comment: No: D o not add to previous draw Performed By: #### 4 64, 87771 ####[facility] [place] [address], [facility] Sodium [Moles/Vol] 140 mmol/L Normal 136-145 The [facility] Comment on above: Order Comment: No: D o not add to previous draw Performed By: #### 4 6413, 06944 ####[facility] [place] [address], [facility] Urea nitrogen [Mass/Vol] 13 mg/dL Normal 7-25 The [facility] Comment on above: Order Comment: No: D o not add to previous draw Performed By: #### 4 6413, 39641 ####[facility] [place] [address], [facility] CBC W/DIFFon 09-17-2020 ABS IMM GRANS 0.0 10*3/uL Normal 0.0-0.2 The [facility] Comment on above: Order Comment: No: D o not add to previous draw Performed By: #### 0 0071, 34132, 55608 #### [facility] [address] [place] [address], [facility] ABS NEUTROPHILS 4.3 10*3/uL Normal 1.6-7.6 The [facility] Comment on above: Order Comment: No: D o not add to previous draw Performed By: #### 0 0071, 43063, 73176 #### [facility] [address] [place] [address], [place] Basophils (Bld) [#/Vol] 0.0 10*3/uL Normal 0.0-0.2 The [facility] Comment on above: Order Comment: No: D o not add to previous draw Performed By: #### 0 0071, 81857, 37769 #### [facility] [address] [place] [address], [facility] Basophils/100 WBC (Bld) 0.4 % Normal 0.0-1.0 The [facility] Comment on above: Order Comment: No: D o not add to previous draw Performed By: #### 0 0071, 54029, 68530 #### [facility] [address] [place] [address], [facility] Eosinophils (Bld) [#/Vol] 0.2 10*3/uL Normal 0.0-0.5 The [facility] Comment on above: Order Comment: No: D o not add to previous draw Performed By: #### 0 0071, 41615, 72244 #### [facility] [address] [place] [address], [place] Eosinophils/100 WBC (Bld) 2.7 % Normal 0.0-6.0 The [facility] Comment on above: Order Comment: No: D o not add to previous draw Performed By: #### 0 0071, 56075, 89444 #### [facility] [address] [place] [address], [place] Erythrocyte distribution width (RBC) [Ratio] 13.4 % Normal 11.5-15.0 The [facility] Comment on above: Order Comment: No: D o not add to previous draw Performed By: #### 0 0071, 13229, 78290 #### [facility] [address] [place] [address], [facility] Hematocrit (Bld) [Volume fraction] 38.8 % Normal 36.0-45.0 The [facility] Comment on above: Order Comment: No: D o not add to previous draw Performed By: #### 0 0071, 73706, 40724 #### [facility] [address] [place] [address], [facility] Hemoglobin (Bld) [Mass/Vol] 12.7 g/dL Normal 12.0-15.0 The [facility] Comment on above: Order Comment: No: D o not add to previous draw Performed By: #### 0 0071, 82041, 36236 #### [facility] [address] [place] [address], [facility] IMMATURE GRANS 0.4 % Normal 0.0-1.0 The [facility] Comment on above: Order Comment: No: D o not add to previous draw Performed By: #### 0 0071, 99128, 63478 #### [facility] [address] [place] [place] [address], [facility] Lymphocytes (Bld) [#/Vol] 1.7 10*3/uL Normal 1.2-4.0 The [facility] Comment on above: Order Comment: No: D o not add to previous draw Performed By: #### 0 0071, 33817, 69845 #### [facility] [address] [place] [address], [place] Lymphocytes/100 WBC (Bld) 24.4 % Normal 20.0-45.0 The [facility] Comment on above: Order Comment: No: D o not add to previous draw Performed By: #### 0 0071, 98323, 56216 #### [facility] [address] [place] [id number], [place] MCH (RBC) [Entitic mass] 29.8 pg Normal 27.0-33.0 The [facility] Comment on above: Order Comment: No: D o not add to previous draw Performed By: #### 0 0071, 43588, 73345 #### [facility] [address] [place] [address], [facility] MCHC (RBC) [Mass/Vol] 32.7 g/dL Normal 32.0-35.0 The [facility] Comment on above: Order Comment: No: D o not add to previous draw Performed By: #### 0 0071, 92315, 28959 #### [facility] [address] [place] [address], [facility] MCV (RBC) [Entitic vol] 91.1 fL Normal 82.0-98.0 The [facility] Comment on above: Order Comment: No: D o not add to previous draw Performed By: #### 0 0071, 67145, 02070 #### [facility] [address] [place] [address], [facility] Monocytes (Bld) [#/Vol] 0.7 10*3/uL Normal 0.1-1.0 The [facility] Comment on above: Order Comment: No: D o not add to previous draw Performed By: #### 0 0071, 61915, 19909 #### [facility] [address] [place] [address], [facility] MONOS 10.1 % Normal 5.0-12.0 The [facility] Comment on above: Order Comment: No: D o not add to previous draw Performed By: #### 0 0071, 60120, 50788 #### [facility] [address] [place] [address], [facility] Neutrophils/100 WBC (Bld) 62.0 % Normal 40.0-72.0 The [facility] Comment on above: Order Comment: No: D o not add to previous draw Performed By: #### 0 0071, 00593, 39817 #### [facility] [address] [place] [address], [facility] Nucleated RBC/100 WBC (Bld) [Ratio] 0 % Normal 0-0 The [facility] Comment on above: Order Comment: No: D o not add to previous draw Performed By: #### 0 0071, 03739, 88646 #### [facility] [address] [place] [address], [facility] PLAT CNT 253 10*3/uL Normal 150-400 The [facility] Comment on above: Order Comment: No: D o not add to previous draw Performed By: #### 0 0071, 27478, 96567 #### [facility] [address] [place] [address], [facility] RBC (Bld) [#/Vol] 4.26 10*6/uL Normal 3.80-5.00 The [facility] Comment on above: Order Comment: No: D o not add to previous draw Performed By: #### 0 0071, 46067, 50227 #### [facility] [address] [place] [address], [facility] WBC (Bld) [#/Vol] 7.00 10*3/uL Normal 4.00-10.60 The [facility] Comment on above: Order Comment: No: D o not add to previous draw Performed By: #### 0 0071, 05222, 67668 #### [facility] [address] [place] [address], [facility] LIPID PROFILEon 09-17-2020 Cholesterol [Mass/Vol] 113 mg/dL Low 120-200 Th e [facility] Comment on above: Order Comment: No: D o not add to previous draw Result Comment: CHOL ESTEROL REFERENCE RANGE: 20 YEARS AND OLDER CARDIOVASCULAR RISK Less than 200 mg/dl Low Risk 200 to 239 mg/dl Borderline Risk 240 mg/dl and greater High Risk Performed By: #### 4 8213, 94629 ####[facility] [place] [address], [facility] Cholesterol in HDL [Mass/Vol] 31 mg/dL Normal 23-92 The [facility] Comment on above: Order Comment: No: D o not add to previous draw Result Comment: Slig ht variation in normal range could be due to gender and/or age. HDL CHOLESTEROL REFERENCE RANGE: 20 years and older Cardiovascular Risk > or =60 mg/dL Desirable 40 TO 59 mg/dL Low Risk <40 mg/dL High Risk Performed By: #### 4 6413, 68743 ####[facility] [place] [address], [facility] Cholesterol in LDL [Mass/Vol] 51 mg/dL Normal 0-130 The [facility] Comment on above: Order Comment: No: D o not add to previous draw Result Comment: LDL IS A CALCULATION LDL IS ONLY VALID IF THE TRIG IS LESS THAN 400. Performed By: #### 4 5513, 85704 ####[facility] [facility] [place] [address], [facility] Cholesterol.total/Chol esterol in HDL [Mass ratio] 3.6 {ratio} Normal 0.0-4.5 The [facility] Comment on above: Order Comment: No: D o not add to previous draw Performed By: #### 4 0613, 43843 ####[facility] [facility] [place] [address], [facility] NON-HDL CHOLESTEROL 82 mg/dL Normal The [facility] Comment on above: Order Comment: No: D o not add to previous draw Performed By: #### 4 6413, 69886 ####[facility] [facility] [place] [address], [place] Triglyceride [Mass/Vol] 154 mg/dL High 40-149 The [facility] Comment on above: Order Comment: No: D o not add to previous draw Result Comment: TRIG LYCERIDE REFERENCE RANGE: 20 YEARS AND OLDER CARDIOVASCULAR RISK LESS THAN 150 mg/dl LOW RISK 150 TO 199 mg/dl BORDERLINE RISK 200 mg/dl AND GREATER HIGH RISK Performed By: #### 4 2357, 13338 ####[facility] [place] [address], [facility] VLDL CHOL 31 mg/dL Normal 0-40 The [facility] Comment on above: Order Comment: No: D o not add to previous draw Performed By: #### 4 6413, 54367 ####[facility] [facility] POC GLUCOSE LABon 09-17-2020 Glucose [Mass/Vol] 159 mg/dL High 70-100 The [facility] Comment on above: Performed By: #### 0 0071, 02707, 83096 #### [facility] [address] [place] [address], [facility] Glucose [Mass/Vol] 109 mg/dL High 70-100 The [facility] Comment on above: Performed By: #### 0 0071, 88879, 07652 #### [facility] [address] [facility] UFH HEPARIN ASSAYon 09-18-19 21 UNFRACTIONATED HEPARIN <0.10 Critically low 0.30-0.70 The [facility] Comment on above: Result Comment: [place] roxaban and Apixaban will interfere with the anti Xa assay used to monitor UFH and LMWH. RESULTS CHECKED AND CALLED. ACCURATELY READ BACK BY Olga Saucedo RN at 0740 Performed By: #### 3 0477 ####[facility] [facility].[address] ALDOSTERONE [address]73tw 09-17-19 21 ALDOSTERONE 4.2 ng/dL Normal The [facility] Comment on above: Order Comment: No: D o not add to previous draw Result Comment: INTE RPRETIVE INFORMATION: Aldosterone, Serum Reference intervals for age 15 and older: Upright ......... 4.0 - 31.0 ng/dL Supine .......... Less than or equal to 16.0 ng/dL Unspecified ..... Less than or equal to 31.0 ng/dL Normal serum levels of aldosterone are dependent on the sodium intake and whether the patient is upright or supine. High sodium intake will tend to suppress serum aldosterone, whereas low sodium intake will elevate serum aldosterone. The reference intervals for serum aldosterone are based on normal sodium intake. Access complete set of age- and/or gender-specific reference intervals for this test in the [employer] [facility] Test Directory ([employer]). Performed By: [facility] [address] [place] [address] Civil Transportation Engineer: Adriana Cordoba MD BASIC METABOLIC PANELon 09-03 Calcium [Mass/Vol] 9.1 mg/dL Normal 8.6-10.3 The [facility] Comment on above: Order Comment: No: D o not add to previous draw Performed By: #### 0 0071, 67709, 66730 #### [facility] [address] [place] [address], [facility] Chloride [Moles/Vol] 105 mmol/L Normal 98-107 The [facility] Comment on above: Order Comment: No: D o not add to previous draw Performed By: #### 0 0071, 26790, 34122 #### [facility] [address] [place] [address], [place] CO2 [Moles/Vol] 28 mmol/L Normal 21-31 The [facility] Comment on above: Order Comment: No: D o not add to previous draw Performed By: #### 0 0071, 46180, 86517 #### [facility] [address] [place] [address], [facility] Creatinine [Mass/Vol] 0.79 mg/dL Normal 0.60-1.20 The [facility] Comment on above: Order Comment: No: D o not add to previous draw Performed By: #### 0 0071, 55215, 55658 #### [facility] [address] [place] [address], [place] GFR/1.73 sq M.predicted among blacks MDRD (S/P/Bld) [Vol rate/Area] mL/min/{1.73_m2} Normal >60 The [facility] Comment on above: Order Comment: No: D o not add to previous draw Performed By: #### 0 0071, 36927, 85251 #### [facility] [address] [place] [address], [place] GFR/1.73 sq M.predicted among non-blacks MDRD (S/P/Bld) [Vol rate/Area] mL/min/{1.73_m2} Normal >60 The [facility] Comment on above: Order Comment: No: D o not add to previous draw Performed By: #### 0 0071, 23380, 77469 #### [facility] [address] [place] [address], [place] Glucose [Mass/Vol] 109 mg/dL High 70-100 The [facility] Comment on above: Order Comment: No: D o not add to previous draw Performed By: #### 0 0071, 18843, 19410 #### [facility] [address] [place] [address], [place] Potassium [Moles/Vol] 3.7 mmol/L Normal 3.5-5.1 The [facility] Comment on above: Order Comment: No: D o not add to previous draw Performed By: #### 0 0071, 49784, 61149 #### [facility] [address] [place] [address], [place] Sodium [Moles/Vol] 140 mmol/L Normal 136-145 [facility] Comment on above: Order Comment: No: D o not add to previous draw Performed By: #### 0 0071, 92269, 58740 #### [facility] [address] [place] [address], [place] Urea nitrogen [Mass/Vol] 12 mg/dL Normal 7-25 [facility] Comment on above: Order Comment: No: D o not add to previous draw Performed By: #### 0 0071, 11256, 70695 #### [facility] [address] [place] [address], [place] CALCIUM IONIZED CBGLon 09-16 IONIZED CALCIUM 1.16 mmol/L Normal 1.12-1.30 [facility] Comment on above: Performed By: #### 0 0071, 21391, 32224 #### [facility] [address] CBC W/DIFFon 09-16-2020 ABS IMM GRANS 0.0 10*3/uL Normal 0.0-0.2 [facility] Comment on above: Order Comment: No: D o not add to previous draw Performed By: #### 0 0071, 06119, 37397 #### [facility] [address] ABS NEUTROPHILS 4.4 10*3/uL Normal 1.6-7.6 [facility] Comment on above: Order Comment: No: D o not add to previous draw Performed By: #### 0 0071, 42876, 31169 #### [facility] [address] [place] [address], [facility] Basophils (Bld) [#/Vol] 0.0 10*3/uL Normal 0.0-0.2 [facility] Comment on above: Order Comment: No: D o not add to previous draw Performed By: #### 0 0071, 99762, 88140 #### [facility] [address] [place] [address], [facility] Basophils/100 WBC (Bld) 0.3 % Normal 0.0-1.0 [facility] Comment on above: Order Comment: No: D o not add to previous draw Performed By: #### 0 0071, 16364, 93436 #### [facility] [address] [place] [address], [facility] Eosinophils (Bld) [#/Vol] 0.2 10*3/uL Normal 0.0-0.5 [facility] Comment on above: Order Comment: No: D o not add to previous draw Performed By: #### 0 0071, 07700, 22850 #### [facility] [address] [place] [address], [facility] Eosinophils/100 WBC (Bld) 2.3 % Normal 0.0-6.0 [facility] Comment on above: Order Comment: No: D o not add to previous draw Performed By: #### 0 0071, 70385, 78068 #### [facility] [address] [place] [address], [facility] Erythrocyte distribution width (RBC) [Ratio] 13.2 % Normal 11.5-15.0 [facility] Comment on above: Order Comment: No: D o not add to previous draw Performed By: #### 0 0071, 75235, 75834 #### [facility] [address] [place] [address], [facility] Hematocrit (Bld) [Volume fraction] 39.4 % Normal 36.0-45.0 [facility] Comment on above: Order Comment: No: D o not add to previous draw Performed By: #### 0 0071, 13260, 88408 #### [facility] [address] [place] [address], [facility] Hemoglobin (Bld) [Mass/Vol] 12.8 g/dL Normal 12.0-15.0 [facility] Comment on above: Order Comment: No: D o not add to previous draw Performed By: #### 0 0071, 56944, 52024 #### [facility] [address] [place] [address], [facility] IMMATURE GRANS 0.4 % Normal 0.0-1.0 [facility] Comment on above: Order Comment: No: D o not add to previous draw Performed By: #### 0 0071, 98176, 43204 #### [facility] [address] [place] [address], [facility] Lymphocytes (Bld) [#/Vol] 1.8 10*3/uL Normal 1.2-4.0 [facility] Comment on above: Order Comment: No: D o not add to previous draw Performed By: #### 0 0071, 18301, 74063 #### [facility] [address] [place] [address], [facility] Lymphocytes/100 WBC (Bld) 25.8 % Normal 20.0-45.0 [facility] Comment on above: Order Comment: No: D o not add to previous draw Performed By: #### 0 0071, 62170, 45979 #### [facility] [address] [place] [address], [facility] MCH (RBC) [Entitic mass] 29.8 pg Normal 27.0-33.0 [facility] Comment on above: Order Comment: No: D o not add to previous draw Performed By: #### 0 0071, 43692, 94678 #### [facility] [address] [place] [address], [facility] MCHC (RBC) [Mass/Vol] 32.5 g/dL Normal 32.0-35.0 [facility] Comment on above: Order Comment: No: D o not add to previous draw Performed By: #### 0 007, 83297, 65490 #### [facility] [address] [place] [address], [facility] MCV (RBC) [Entitic vol] 91.8 fL Normal 82.0-98.0 [facility] Comment on above: Order Comment: No: D o not add to previous draw Performed By: #### 0 0071, 40804, 69746 #### [facility] [address] [facility] [place] [address], [facility] Monocytes (Bld) [#/Vol] 0.6 10*3/uL Normal 0.1-1.0 [facility] Comment on above: Order Comment: No: D o not add to previous draw Performed By: #### 0 0071, 19426, 54315 #### [facility] [address] [place] [address], [place] MONOS 8.7 % Normal 5.0-12.0 [facility] Comment on above: Order Comment: No: D o not add to previous draw Performed By: #### 0 0071, 00591, 49483 #### [facility] [address] [place] [address], [place] Neutrophils/100 WBC (Bld) 62.5 % Normal 40.0-72.0 [facility] Comment on above: Order Comment: No: D o not add to previous draw Performed By: #### 0 0071, 45745, 54554 #### [facility] [address] [place] [address], [place] Nucleated RBC/100 WBC (Bld) [Ratio] 0 % Normal 0-0 [facility] Comment on above: Order Comment: No: D o not add to previous draw Performed By: #### 0 0071, 08658, 34376 #### [facility] [address] [place] [address], [place] PLAT CNT 252 10*3/uL Normal 150-400 [facility] Comment on above: Order Comment: No: D o not add to previous draw Performed By: #### 0 0071, 45385, 17639 #### [facility] [address] [place] [address], [place] RBC (Bld) [#/Vol] 4.29 10*6/uL Normal 3.80-5.00 [facility] Comment on above: Order Comment: No: D o not add to previous draw Performed By: #### 0 0071, 31385, 00613 #### [facility] [address] [place] [address], [place] WBC (Bld) [#/Vol] 7.01 10*3/uL Normal 4.00-10.60 [facility] Comment on above: Order Comment: No: D o not add to previous draw Performed By: #### 0 0071, 62128, 63783 #### [facility] [address] [facility] [place] [address], [facility] Cardiovascular Lab Reporton 09-16-2020 Cardiovascular Lab Report [facility] Patient Name: A[facility] Silvia Neumann MR #: [id number] Department of Physician: Omar Atkinson M.D. Division of Service Date: 09/16/2020 Cardiology Birthdate: 1970 Adult Cardiovascular Room #: 3AB 810135 [facility] [address] [place], [place] [address] Cardiovascular Laboratory Report FINAL IMPRESSIONS: 1. Moderate disease of the left anterior descending coronary artery. 2. Moderate disease of the distal left circumflex coronary artery. 3. Small, non-dominant right coronary artery. 4. Moderate systemic hypertension. 5. Fluoroscopic evidence of Amplatzer septal occluder. RECOMMENDATIONS: 1. Aggressive cardiovascular risk factor modification. 2. Optimization of medical management; aspirin, Plavix, high-intensity statin therapy, a beta benjamin, +/- an angiotensin-converting enzyme inhibitor are indicated. 3. The troponin elevation is likely related to supply-demand mismatch from elevated blood pressure readings on admission coupled with the moderate coronary artery disease; no coronary intervention is required at this juncture. 4. Further recommendations deferred to the Inpatient Services. PROCEDURES: Ultrasound-guided access to the left radial arteries, bilateral selective coronary angiography. METHODS: After risks, benefits, and alternatives were explained, written informed consent was obtained. The patient was prepped and draped in usual sterile fashion over the left wrist. Local infiltration anesthesia was achieved. Under ultrasound guidance and using a micropuncture kit, access of the left radial artery was obtained. A 6-[place] glide sheath was inserted without difficulty. Bilateral selective coronary angiography was performed using JR4 and JL3.5 catheters. After reviewing the images, it was elected to conclude the procedure. All catheters were removed. The radial sheath was removed with application of a TR band per protocol to achieve optimal hemostasis. Overall, the patient tolerated the procedure well. There were no overt complications. She was to be transferred to the hospital room in stable condition. FINDINGS: Hemodynamics. AO 145/89. LEFT VENTRICULOGRAPHY: This was not performed. Ejection fraction is normal by noninvasive imaging. CORONARY ARTERIES: Left main coronary artery: This arises from the left coronary cusp. It bifurcates into the left anterior descending and left circumflex coronary arteries and is free of significant stenosis. Left anterior descending coronary artery: This shows a mid vessel 40% to 50% stenosis adjacent to a prominent septal immunohematologist. It is a wrap-around left anterior descending. The diagonal branches show caliber reduction. After a moderate-sized second diagonal there is a short segment 30% to 40% stenosis. Left circumflex coronary artery: This is a dominant vessel giving rise to the posterior descending and posterolateral branches. It shows a 50% stenosis in the distal portion just prior to the posterior descending artery. The vessel is 2-2.5 mm in size in this location. Right coronary artery: This is a small nondominant vessel with no significant stenosis. Fluoroscopy; there is evidence of an Amplatzer septal occluder that appears to be well seated without excessive motion. INDICATIONS: Elevated troponin, chest pain. Electronically Signed by: Esa Vizcarra M.D. 09/18/2020 02:12 P Esa Vizcarra M.D. Date Dict: 09/16/2020/09:41 Jimmy/Esa Vizcarra M.D. Date Trans: 09/16/2020 10:43 Jimmy/mario [id number] cc: Dariusz Keen M.D. [address] [place] [id number] Normal [facility] METANEPHRINES, PLASMA [id number] n 09-16-[address] See Note Normal [facility] Comment on above: Order Comment: No: D o not add to previous draw Result Comment: INTE RPRETIVE INFORMATION: Metanephrines, Plasma (Free) This test is useful in the detection of pheochromocytoma, a rare neuroendocrine tumor. The majority of patients with pheochromocytoma have a plasma normetanephrine concentration in excess of 2.2 nmol/L and/or a metanephrine concentration in excess of 1.1 nmol/L. Increased concentrations of these analytes serve as confirmation for diagnosis. Patients with essential hypertension and plasma concentrations of normetanephrine below 0.9 nmol/L and a metanephrine concentration below 0.5 nmol/L, can be excluded from further testing. If clinical suspicion remains, repeat testing or testing for metanephrines in a 24-hr. urine specimen should be considered. This test was developed and its performance characteristics determined by [facility]. It has not been cleared or approved by the [place] Food and Drug Administration. This test was performed in a CLIA certified laboratory and is intended for clinical purposes. Performed By: [facility] [address] [place] [id number] Civil Transportation Engineer: Adriana Cordoba MD METANEPHRINE PLASMA 0.13 nmol/L Normal 0.00-0.49 [facility] Comment on above: Order Comment: No: D o not add to previous draw NORMETANEPHRINE PLASMA 0.37 nmol/L Normal 0.00-0.89 [facility] Comment on above: Order Comment: No: D o not add to previous draw POC GLUCOSE LABon 09-16-2020 Glucose [Mass/Vol] 125 mg/dL High 70-100 [facility] Comment on above: Performed By: #### 0 0071, 41092, 73695 #### [facility] [address] [place] [address], [place] Glucose [Mass/Vol] 147 mg/dL High 70-100 [facility] Comment on above: Performed By: #### 0 0071, 39355, 40529 #### [facility] [address] [place] [address], [place] Glucose [Mass/Vol] 100 mg/dL Normal 70-100 [facility] Comment on above: Performed By: #### 0 0071, 10309, 19746 #### [facility] [address] [place] [address], [place] Glucose [Mass/Vol] 122 mg/dL High 70-100 [facility] Comment on above: Performed By: #### 0 0071, 24434, 39060 #### [facility] [address] [place] [address], [facility] PTH INTACTon 09-16-2020 PTH INTACT 86 pg/mL Normal 12- [facility] Comment on above: Order Comment: No: D o not add to previous draw Performed By: #### 0 0071, 49715, 88445 #### [facility] [address] [place] [address], [facility] RENIN ACTIVITY [id number] 09-16 RENIN ACTIVITY 0.7 ng/mL/hr Normal [facility] Comment on above: Order Comment: No: D o not add to previous draw Result Comment: INTE RPRETIVE INFORMATION: Renin Activity Adult, Normal sodium diet: Supine ................. 0.2-1.6 ng/mL/hr Upright ................ 0.5-4.0 ng/mL/hr Children, Normal sodium diet, Supine: (1-7 days) ..... 2.0-35.0 ng/mL/hr Cord blood ............. 4.0-32.0 ng/mL/hr 1-12 mos ............... 2.4-37.0 ng/mL/hr 13 mos-3 yrs ........... 1.7-11.2 ng/mL/hr 4-5 yrs ................ 1.0- 6.5 ng/mL/hr 6-10 yrs ............... 0.5- 5.9 ng/mL/hr 11-15 yrs .............. 0.5- 3.3 ng/mL/hr Children, normal sodium diet, Upright: 0-3 yrs ................ Not Available 4-5 yrs ................ Less than or equal to 15 ng/mL/hr 6-10 yrs ............... Less than or equal to 17 ng/mL/hr 11-15 yrs .............. Less than or equal to 16 ng/mL/hr Plasma renin activity measures enzyme ability to convert angiotensinogen to angiotensin I and is limited by the availability of angiotensinogen. Plasma renin activity is not an accurate indicator of enzyme activity when angiotensinogen is decreased. This test was developed and its performance characteristics determined by [facility]. It has not been cleared or approved by the [place] Food and Drug Administration. This test was performed in a CLIA certified laboratory and is intended for clinical purposes. Performed By: [facility] [address] [place] [id number] Civil Transportation Engineer: Adriana Cordoba MD TSH3 WITH REFLEX FT4on 09-16 TSH 3RD GENERATION 2.75 uIU/mL Normal 0.34-5.60 [facility] Comment on above: Order Comment: No: D o not add to previous draw Performed By: #### 0 0071, 39181, 19461 #### [facility] [address] UFH HEPARIN ASSAYon 09-17-19 21 UNFRACTIONATED HEPARIN 0.34 IU/mL Normal 0.30-0.70 Th e [facility] Comment on above: Result Comment: [place] roxaban and Apixaban will interfere with the anti Xa assay used to monitor UFH and LMWH. Performed By: #### 3 0477 ####[facility] [address] *SARS-CoV-2 COVID-19on 09-15 SARS-CoV-2 (COVID-19) RNA RAJINDER+probe Ql (Unsp spec) Not detected Normal Not Detected [facility] Comment on above: Order Comment: The A ptima SARS-CoV-2 assay is a nucleic acid amplification test intended for the qualitative detection of RNA from SARS-CoV-2 isolated and purified from nasopharyngeal ([employer]DLIFE TRAPPER),oropharyngeal (OP), nasal swab, sputum, and bronchoalveolar lavage (BAL) specimens from patients with signs and symptoms of infection who are suspected of COVID-19. Results are for the identification of SARS-CoV-2 RNA. The SARS-CoV-2 RNA is generally detectable during the acute phase of infection. The Aptima SARS-CoV-2 Assay on the [employer] system is intended for use by laboratory personnel specifically instructed and trained in the operation of the [employer] system. The Aptima SARS-CoV-2 assay is only for use under the Food and Drug Administration Emergency Use Authorization. Testing is limited to laboratories certified under the Clinical Laboratory Improvement Amendments of 1988 (CLIA), 42 U.S.C. ???263a, to perform high complexity tests. Not Detected: Not detected does not preclude SARS-CoV-2 infection and should not be used as the sole basis for patient management decisions. Not detected results must be combined with clinical observations, patient history, and epidemiological information. Performed By: #### 3 1792 #### [facility] [address] BASIC METABOLIC PANELon 06- Calcium [Mass/Vol] 9.1 mg/dL Normal 8.6-10.3 [facility] Comment on above: Order Comment: No: D o not add to previous draw Performed By: #### 0 0071, 15774 ####[facility] [place] [address], [facility] Chloride [Moles/Vol] 106 mmol/L Normal 98-107 [facility] Comment on above: Order Comment: No: D o not add to previous draw Performed By: #### 0 0071, 81178 ####[facility] [place] [address], [facility] CO2 [Moles/Vol] 26 mmol/L Normal 21-31 [facility] Comment on above: Order Comment: No: D o not add to previous draw Performed By: #### 0 0071, 44696 ####[facility] [place] [address], [facility] Creatinine [Mass/Vol] 0.76 mg/dL Normal 0.60-1.20 [facility] Comment on above: Order Comment: No: D o not add to previous draw Performed By: #### 0 0071, 20208 ####[facility] [id number], [facility] GFR/1.73 sq M.predicted among blacks MDRD (S/P/Bld) [Vol rate/Area] mL/min/{1.73_m2} Normal >60 [facility] Comment on above: Order Comment: No: D o not add to previous draw Performed By: #### 0 0071, 91854 ####[facility] [place] [address], [facility] GFR/1.73 sq M.predicted among non-blacks MDRD (S/P/Bld) [Vol rate/Area] mL/min/{1.73_m2} Normal >60 [facility] Comment on above: Order Comment: No: D o not add to previous draw Performed By: #### 0 0071, 32078 ####[facility] [place] [address], [facility] Glucose [Mass/Vol] 114 mg/dL High 70-100 [facility] Comment on above: Order Comment: No: D o not add to previous draw Performed By: #### 0 0071, 26930 ####[facility] [place] [address], [facility] Potassium [Moles/Vol] 3.8 mmol/L Normal 3.5-5.1 [facility] Comment on above: Order Comment: No: D o not add to previous draw Performed By: #### 0 0071, 96967 ####[facility] [place] [address], [place] Sodium [Moles/Vol] 140 mmol/L Normal 136-145 [facility] Comment on above: Order Comment: No: D o not add to previous draw Performed By: #### 0 0071, 79658 ####[facility] [place] [address], [facility] Urea nitrogen [Mass/Vol] 11 mg/dL Normal 7-25 [facility] Comment on above: Order Comment: No: D o not add to previous draw Performed By: #### 0 0071, 18772 ####[facility] [place] [address], [facility] CBC W/DIFFon 09-15-2020 ABS IMM GRANS 0.0 10*3/uL Normal 0.0-0.2 [facility] Comment on above: Order Comment: No: D o not add to previous draw Performed By: #### 0 0071, 38865, 41239 #### [facility] [address] [place] [facility] [address], [facility] ABS NEUTROPHILS 4.5 10*3/uL Normal 1.6-7.6 [facility] Comment on above: Order Comment: No: D o not add to previous draw Performed By: #### 0 0071, 48403, 80856 #### [facility] [address] [place] [address], [facility] Basophils (Bld) [#/Vol] 0.0 10*3/uL Normal 0.0-0.2 [facility] Comment on above: Order Comment: No: D o not add to previous draw Performed By: #### 0 0071, 03151, 70358 #### [facility] [address] [place] [id number], [facility] Basophils/100 WBC (Bld) 0.4 % Normal 0.0-1.0 [facility] Comment on above: Order Comment: No: D o not add to previous draw Performed By: #### 0 0071, 51188, 19248 #### [facility] [address] [place] [address], [place] Eosinophils (Bld) [#/Vol] 0.1 10*3/uL Normal 0.0-0.5 [facility] Comment on above: Order Comment: No: D o not add to previous draw Performed By: #### 0 0071, 15594, 98218 #### [facility] [address] [place] [address], [facility] Eosinophils/100 WBC (Bld) 1.8 % Normal 0.0-6.0 [facility] Comment on above: Order Comment: No: D o not add to previous draw Performed By: #### 0 0071, 94135, 56521 #### [facility] [address] [place] [address], [facility] Erythrocyte distribution width (RBC) [Ratio] 13.3 % Normal 11.5-15.0 [facility] Comment on above: Order Comment: No: D o not add to previous draw Performed By: #### 0 0071, 91091, 38185 #### [facility] [address] Hematocrit (Bld) [Volume fraction] 42.1 % Normal 36.0-45.0 [facility] Comment on above: Order Comment: No: D o not add to previous draw Performed By: #### 0 0071, 12705, 95575 #### [facility] [address] [place] [address], [facility] Hemoglobin (Bld) [Mass/Vol] 13.8 g/dL Normal 12.0-15.0 [facility] Comment on above: Order Comment: No: D o not add to previous draw Performed By: #### 0 0071, 20405, 81142 #### [facility] [address] [place] [address], [facility] IMMATURE GRANS 0.4 % Normal 0.0-1.0 [facility] Comment on above: Order Comment: No: D o not add to previous draw Performed By: #### 0 0071, 57023, 53252 #### [facility] [address] Lymphocytes (Bld) [#/Vol] 1.5 10*3/uL Normal 1.2-4.0 [facility] Comment on above: Order Comment: No: D o not add to previous draw Performed By: #### 0 0071, 46617, 83647 #### [facility] [address] [place] [address], [facility] Lymphocytes/100 WBC (Bld) 21.5 % Normal 20.0-45.0 [facility] Comment on above: Order Comment: No: D o not add to previous draw Performed By: #### 0 0071, 70076, 04644 #### [facility] [address] [place] [address], [facility] MCH (RBC) [Entitic mass] 29.8 pg Normal 27.0-33.0 [facility] Comment on above: Order Comment: No: D o not add to previous draw Performed By: #### 0 0071, 67899, 80600 #### [facility] [address] [place] [id number], [facility] MCHC (RBC) [Mass/Vol] 32.8 g/dL Normal 32.0-35.0 [facility] Comment on above: Order Comment: No: D o not add to previous draw Performed By: #### 0 0071, 18890, 23094 #### [facility] [address] [place] [address], [facility] MCV (RBC) [Entitic vol] 90.9 fL Normal 82.0-98.0 [facility] Comment on above: Order Comment: No: D o not add to previous draw Performed By: #### 0 0071, 10607, 65526 #### [facility] [address] [place] [address], [facility] Monocytes (Bld) [#/Vol] 0.7 10*3/uL Normal 0.1-1.0 The [facility] Comment on above: Order Comment: No: D o not add to previous draw Performed By: #### 0 0071, 55347, 87296 #### [facility] [address] [place] [id number], [facility] MONOS 9.6 % Normal 5.0-12.0 [facility] Comment on above: Order Comment: No: D o not add to previous draw Performed By: #### 0 0071, 13693, 94256 #### [facility] [address] [place] [address], [facility] Neutrophils/100 WBC (Bld) 66.3 % Normal 40.0-72.0 The [facility] Comment on above: Order Comment: No: D o not add to previous draw Performed By: #### 0 0071, 17620, 87408 #### [facility] [address] [place] [address], [facility] Nucleated RBC/100 WBC (Bld) [Ratio] 0 % Normal 0-0 The [facility] Comment on above: Order Comment: No: D o not add to previous draw Performed By: #### 0 0071, 80885, 48309 #### [facility] [address] [facility] [address], [place] PLAT CNT 253 10*3/uL Normal 150-400 The [facility] Comment on above: Order Comment: No: D o not add to previous draw Performed By: #### 0 0071, 09479, 47636 #### [facility] [address] [place] [id number], [facility] RBC (Bld) [#/Vol] 4.63 10*6/uL Normal 3.80-5.00 [facility] Comment on above: Order Comment: No: D o not add to previous draw Performed By: #### 0 0071, 47228, 05588 #### [facility] [address] [place] [address], [place] WBC (Bld) [#/Vol] 6.85 10*3/uL Normal 4.00-10.60 [facility] Comment on above: Order Comment: No: D o not add to previous draw Performed By: #### 0 0071, 03379, 75868 #### [facility] [address] [place] [address], [facility] POC GLUCOSE LABon 09-15-2020 Glucose [Mass/Vol] 122 mg/dL High 70-100 The [facility] Comment on above: Performed By: #### 0 0071, 04830, 32730 #### [facility] [address] [place] [address], [facility] Glucose [Mass/Vol] 175 mg/dL High 70-100 The [facility] Comment on above: Performed By: #### 0 0071, 28541, 32683 #### [facility] [address] [place] [facility] [address], [facility] TROPONIN-Ion 09-15-2020 Troponin I.cardiac [Mass/Vol] 0.12 ng/mL Critically high 0.00-0.04 The [facility] Comment on above: Order Comment: No: D o not add to previous draw Result Comment: M-VA EVIOUS CRITICAL RESULT REFERENCE RANGES: 0.00 - 0.04 ng/ml NORMAL 0.05 - 0.50 ng/ml INDETERMINATE > 0.50 ng/ml CONSISTENT WITH AN M.I. Performed By: #### 0 0071, 15125 ####[facility] [facility] UFH HEPARIN ASSAYon 09-16-19 21 UNFRACTIONATED HEPARIN 0.37 IU/mL Normal 0.30-0.70 Th e [facility] Comment on above: Result Comment: [place] roxaban and Apixaban will interfere with the anti Xa assay used to monitor UFH and LMWH. Performed By: #### 3 0477 ####[facility] [place] [address], [facility] BASIC METABOLIC PANELon 09-03 Calcium [Mass/Vol] 9.1 mg/dL Normal 8.6-10.3 The [facility] Comment on above: Order Comment: No: D o not add to previous draw Performed By: #### 1 0070, 80891, 67548, 56554 ####[facility] [place] [address], [facility] Chloride [Moles/Vol] 104 mmol/L Normal 98-107 The [facility] Comment on above: Order Comment: No: D o not add to previous draw Performed By: #### 1 0070, 59447, 80870, 01273 ####[facility] [place] [address], [facility] CO2 [Moles/Vol] 29 mmol/L Normal 21-31 The [facility] Comment on above: Order Comment: No: D o not add to previous draw Performed By: #### 1 0070, 78402, 13764, 28212 ####[facility] [place] [address], [facility] Creatinine [Mass/Vol] 0.83 mg/dL Normal 0.60-1.20 The [facility] Comment on above: Order Comment: No: D o not add to previous draw Performed By: #### 1 0070, 19821, 36745, 15764 ####[facility] [place] [address], [facility] GFR/1.73 sq M.predicted among blacks MDRD (S/P/Bld) [Vol rate/Area] mL/min/{1.73_m2} Normal >60 The [facility] Comment on above: Order Comment: No: D o not add to previous draw Performed By: #### 1 0070, 36031, 59052, 99418 ####[facility] [place] [address], [place] GFR/1.73 sq M.predicted among non-blacks MDRD (S/P/Bld) [Vol rate/Area] mL/min/{1.73_m2} Normal >60 The [facility] Comment on above: Order Comment: No: D o not add to previous draw Performed By: #### 1 0070, 07989, 49459, 38702 ####[facility] Glucose [Mass/Vol] 107 mg/dL High 70-100 The [facility] Comment on above: Order Comment: No: D o not add to previous draw Performed By: #### 1 0070, 90071, 64325, 70795 ####[facility] Potassium [Moles/Vol] 3.6 mmol/L Normal 3.5-5.1 The [facility] Comment on above: Order Comment: No: D o not add to previous draw Performed By: #### 1 0070, 51944, 94578, 23105 ####[facility] Sodium [Moles/Vol] 138 mmol/L Normal 136-145 The [facility] Comment on above: Order Comment: No: D o not add to previous draw Performed By: #### 1 0070, 46468, 46575, 48753 ####[facility] Urea nitrogen [Mass/Vol] 10 mg/dL Normal 7-25 The [facility] Comment on above: Order Comment: No: D o not add to previous draw Performed By: #### 1 0070, 38806, 09436, 88775 ####[facility] [place] [address], [facility] CBC W/DIFFon 09-14-2020 ABS IMM GRANS 0.0 10*3/uL Normal 0.0-0.2 The [facility] Comment on above: Order Comment: No: D o not add to previous draw Performed By: #### 0 0071, 72400, 47467 #### [facility] [address] [facility] [place] [address], [facility] ABS NEUTROPHILS 3.2 10*3/uL Normal 1.6-7.6 The [facility] Comment on above: Order Comment: No: D o not add to previous draw Performed By: #### 0 0071, 17358, 16348 #### [facility] [address] [place] [address], [facility] Basophils (Bld) [#/Vol] 0.0 10*3/uL Normal 0.0-0.2 The [facility] Comment on above: Order Comment: No: D o not add to previous draw Performed By: #### 0 0071, 74643, 25902 #### [facility] [address] [facility] [place] [address], [facility] Basophils/100 WBC (Bld) 0.4 % Normal 0.0-1.0 The [facility] Comment on above: Order Comment: No: D o not add to previous draw Performed By: #### 0 0071, 89770, 65099 #### [facility] [address] [place] [address], [facility] Eosinophils (Bld) [#/Vol] 0.2 10*3/uL Normal 0.0-0.5 The [facility] Comment on above: Order Comment: No: D o not add to previous draw Performed By: #### 0 0071, 40322, 14159 #### [facility] [address] [facility] [place] [address], [facility] Eosinophils/100 WBC (Bld) 3.3 % Normal 0.0-6.0 The [facility] Comment on above: Order Comment: No: D o not add to previous draw Performed By: #### 0 0071, 33038, 61768 #### [facility] [address] [facility] [place] [id number], [facility] Erythrocyte distribution width (RBC) [Ratio] 13.4 % Normal 11.5-15.0 [facility] Comment on above: Order Comment: No: D o not add to previous draw Performed By: #### 0 0071, 84162, 82442 #### [facility] [address] [place] [address], [facility] Hematocrit (Bld) [Volume fraction] 42.5 % Normal 36.0-45.0 [facility] Comment on above: Order Comment: No: D o not add to previous draw Performed By: #### 0 0071, 80687, 47534 #### [facility] [address] [place] [address], [facility] Hemoglobin (Bld) [Mass/Vol] 14.0 g/dL Normal 12.0-15.0 [facility] Comment on above: Order Comment: No: D o not add to previous draw Performed By: #### 0 0071, 68573, 84731 #### [facility] [address] [place] [address], [facility] IMMATURE GRANS 0.2 % Normal 0.0-1.0 The [facility] Comment on above: Order Comment: No: D o not add to previous draw Performed By: #### 0 0071, 58796, 82773 #### [facility] [address] [place] [facility] [place] [address], [facility] Lymphocytes (Bld) [#/Vol] 1.6 10*3/uL Normal 1.2-4.0 The [facility] Comment on above: Order Comment: No: D o not add to previous draw Performed By: #### 0 0071, 13190, 76144 #### [facility] [address] [place] [id number], [facility] Lymphocytes/100 WBC (Bld) 28.2 % Normal 20.0-45.0 [facility] Comment on above: Order Comment: No: D o not add to previous draw Performed By: #### 0 0071, 74813, 13998 #### [facility] [address] [place] [address], [place] MCH (RBC) [Entitic mass] 29.9 pg Normal 27.0-33.0 [facility] Comment on above: Order Comment: No: D o not add to previous draw Performed By: #### 0 0071, 65674, 12773 #### [facility] [address] [place] [address], [facility] MCHC (RBC) [Mass/Vol] 32.9 g/dL Normal 32.0-35.0 [facility] Comment on above: Order Comment: No: D o not add to previous draw Performed By: #### 0 0071, 21136, 75619 #### [facility] [address] [place] [id number], [facility] MCV (RBC) [Entitic vol] 90.6 fL Normal 82.0-98.0 [facility] Comment on above: Order Comment: No: D o not add to previous draw Performed By: #### 0 0071, 21370, 14309 #### [facility] [address] [place] [address], [facility] Monocytes (Bld) [#/Vol] 0.7 10*3/uL Normal 0.1-1.0 [facility] Comment on above: Order Comment: No: D o not add to previous draw Performed By: #### 0 0071, 03145, 39410 #### [facility] [address] [place] [address], [facility] MONOS 11.6 % Normal 5.0-12.0 [facility] Comment on above: Order Comment: No: D o not add to previous draw Performed By: #### 0 0071, 02225, 00771 #### [facility] [address] [place] [id number], [place] Neutrophils/100 WBC (Bld) 56.3 % Normal 40.0-72.0 [facility] Comment on above: Order Comment: No: D o not add to previous draw Performed By: #### 0 0071, 86429, 21888 #### [facility] [address] [place] [address], [facility] Nucleated RBC/100 WBC (Bld) [Ratio] 0 % Normal 0-0 [facility] Comment on above: Order Comment: No: D o not add to previous draw Performed By: #### 0 0071, 30154, 85035 #### [facility] [address] [place] [address], [facility] PLAT CNT 262 10*3/uL Normal 150-400 [facility] Comment on above: Order Comment: No: D o not add to previous draw Performed By: #### 0 0071, 82231, 02410 #### [facility] [address] [place] [address], [facility] RBC (Bld) [#/Vol] 4.69 10*6/uL Normal 3.80-5.00 The [facility] Comment on above: Order Comment: No: D o not add to previous draw Performed By: #### 0 0071, 18858, 41245 #### [facility] [address] [place] [address], [facility] WBC (Bld) [#/Vol] 5.68 10*3/uL Normal 4.00-10.60 The [facility] Comment on above: Order Comment: No: D o not add to previous draw Performed By: #### 0 0071, 67025, 53421 #### [facility] [address] [place] [id number], [facility] MAGNESIUM BLOODon 09-14-2020 Magnesium [Mass/Vol] 2.1 mg/dL Normal 1.9-2.7 The [facility] Comment on above: Order Comment: No: D o not add to previous draw Performed By: #### 1 0070, 09504, 23560, 13660 ####[facility] [place] [address], [facility] PHOSPHORUS BLOODon Phosphate [Mass/Vol] 3.6 mg/dL Normal 2.5-5.0 The [facility] Comment on above: Order Comment: No: D o not add to previous draw Performed By: #### 1 0070, 43054, 25686, 14195 ####[facility] [place] [address], [facility] POC GLUCOSE LABon 09-14-2020 Glucose [Mass/Vol] 134 mg/dL High 70-100 [facility] Comment on above: Performed By: #### 0 0071, 79184, 07491 #### [facility] [address] [place] [address], [facility] Glucose [Mass/Vol] 168 mg/dL High 70-100 The [facility] Comment on above: Performed By: #### 0 0071, 82778, 55736 #### [facility] [address] [place] [address], [facility] TROPONIN-Ion 09-14-2020 Troponin I.cardiac [Mass/Vol] 0.29 ng/mL Critically high 0.00-0.04 [facility] Comment on above: Result Comment: M-VA EVIOUS CRITICAL RESULT REFERENCE RANGES: 0.00 - 0.04 ng/ml NORMAL 0.05 - 0.50 ng/ml INDETERMINATE > 0.50 ng/ml CONSISTENT WITH AN M.I. Performed By: #### 1 0070, 58151, 75767, 99145 ####[facility] [facility] [place] [address], [facility] UFH HEPARIN ASSAYon 09-15-19 21 UNFRACTIONATED HEPARIN 0.43 IU/mL Normal 0.30-0.70 Th e [facility] Comment on above: Result Comment: [place] roxaban and Apixaban will interfere with the anti Xa assay used to monitor UFH and LMWH. Performed By: #### 0 0071, 03594, 72571 #### [facility] [address] [place] [address], [facility] UNFRACTIONATED HEPARIN 0.66 IU/mL Normal 0.30-0.70 Th e [facility] Comment on above: Result Comment: Fat[place] roxaban and Apixaban will interfere with the anti Xa assay used to monitor UFH and LMWH. Performed By: #### 3 0477 ####[facility] [facility].[address] APTTon 09-13-2020 aPTT Coag (Bld) [Time] 30.6 s Normal 25.0-35.0 Th e [facility] Comment on above: Result Comment: ALL RESULTS MUST BE INTERPRETED WITH RESPECT TO BLOOD DRAWING ARTIFACT OR DILUTION ERROR OF ANTICOAGULANT AT THE TIME OF SAMPLING. THE APTT SHOULD NOT BE USED TO MONITOR UNFRACTIONATED HEPARIN THERAPY, THIS LABORATORY NO LONGER HAS AN ESTABLISHED THERAPEUTIC RANGE BASED ON THE APTT. IT IS RECOMMENDED THAT THE UFH - HEPARIN ASSAY (ANTI-XA ACTIVITY) BE USED FOR THIS PURPOSE. Performed By: #### 3 0477, 78752, 41359 ####[facility] [facility].[address] BASIC METABOLIC PANELon 09-03 Calcium [Mass/Vol] 9.8 mg/dL Normal 8.6-10.3 The [facility] Comment on above: Order Comment: No: D o not add to previous draw Performed By: #### 1 0070, 66069, 98807, 15013 ####[facility] [facility] [place] [address], [facility] Chloride [Moles/Vol] 104 mmol/L Normal 98-107 The [facility] Comment on above: Order Comment: No: D o not add to previous draw Performed By: #### 1 0070, 20521, 39725, 92764 ####[facility] [facility] [place] [address], [facility] CO2 [Moles/Vol] 30 mmol/L Normal 21-31 The [facility] Comment on above: Order Comment: No: D o not add to previous draw Performed By: #### 1 0070, 84723, 43273, 02348 ####[facility] [facility] [place] [address], [facility] Creatinine [Mass/Vol] 0.77 mg/dL Normal 0.60-1.20 The [facility] Comment on above: Order Comment: No: D o not add to previous draw Performed By: #### 1 0070, 62062, 55087, 93749 ####[facility] [place] [address], [facility] GFR/1.73 sq M.predicted among blacks MDRD (S/P/Bld) [Vol rate/Area] mL/min/{1.73_m2} Normal >60 The [facility] Comment on above: Order Comment: No: D o not add to previous draw Performed By: #### 1 0070, 05497, 32442, 51644 ####[facility] [place] [address], [facility] GFR/1.73 sq M.predicted among non-blacks MDRD (S/P/Bld) [Vol rate/Area] mL/min/{1.73_m2} Normal >60 The [facility] Comment on above: Order Comment: No: D o not add to previous draw Performed By: #### 1 0070, 93828, 00958, 46067 ####[facility] [place] [address], [facility] Glucose [Mass/Vol] 85 mg/dL Normal 70-100 The [facility] Comment on above: Order Comment: No: D o not add to previous draw Performed By: #### 1 0070, 57087, 22396, 59090 ####[facility] [place] [address], [place] Potassium [Moles/Vol] 4.2 mmol/L Normal 3.5-5.1 The [facility] Comment on above: Order Comment: No: D o not add to previous draw Performed By: #### 1 0070, 73710, 38824, 63429 ####[facility] [place] [address], [place] Sodium [Moles/Vol] 141 mmol/L Normal 136-145 The [facility] Comment on above: Order Comment: No: D o not add to previous draw Performed By: #### 1 0070, 80117, 24891, 80482 ####[facility] [facility] Urea nitrogen [Mass/Vol] 10 mg/dL Normal 7-25 The [facility] Comment on above: Order Comment: No: D o not add to previous draw Performed By: #### 1 0070, 80459, 96684, 98380 ####[facility] [address] CBC COMPLETE BLOOD COUNTon 0 - Erythrocyte distribution width (RBC) [Ratio] 13.4 % Normal 11.5-15.0 The [facility] Comment on above: Order Comment: No: D o not add to previous draw Performed By: #### 0 0071, 12504, 85246 #### [facility] [address] [place] [address], [facility] Hematocrit (Bld) [Volume fraction] 43.0 % Normal 36.0-45.0 The [facility] Comment on above: Order Comment: No: D o not add to previous draw Performed By: #### 0 0071, 40888, 26447 #### [facility] [address] [place] [facility] [place] [address], [facility] Hemoglobin (Bld) [Mass/Vol] 14.0 g/dL Normal 12.0-15.0 The [facility] Comment on above: Order Comment: No: D o not add to previous draw Performed By: #### 0 0071, 72326, 08399 #### [facility] [address] [place] [address], [place] MCH (RBC) [Entitic mass] 29.5 pg Normal 27.0-33.0 The [facility] Comment on above: Order Comment: No: D o not add to previous draw Performed By: #### 0 0071, 32517, 64678 #### [facility] [address] [place] [address], [facility] MCHC (RBC) [Mass/Vol] 32.6 g/dL Normal 32.0-35.0 The [facility] Comment on above: Order Comment: No: D o not add to previous draw Performed By: #### 0 0071, 54336, 15680 #### [facility] [address] [place] [address], [facility] MCV (RBC) [Entitic vol] 90.7 fL Normal 82.0-98.0 The [facility] Comment on above: Order Comment: No: D o not add to previous draw Performed By: #### 0 0071, 26844, 08914 #### [facility] [address] [place] [address], [facility] Nucleated RBC/100 WBC (Bld) [Ratio] 0 % Normal 0-0 [facility] Comment on above: Order Comment: No: D o not add to previous draw Performed By: #### 0 0071, 91157, 98560 #### [facility] [address] [facility] [place] [address], [facility] PLAT CNT 244 10*3/uL Normal 150-400 [facility] Comment on above: Order Comment: No: D o not add to previous draw Performed By: #### 0 0071, 54668, 22611 #### [facility] [address] [place] [address], [facility] RBC (Bld) [#/Vol] 4.74 10*6/uL Normal 3.80-5.00 [facility] Comment on above: Order Comment: No: D o not add to previous draw Performed By: #### 0 0071, 88441, 78791 #### [facility] [address] [place] [id number], [place] WBC (Bld) [#/Vol] 5.39 10*3/uL Normal 4.00-10.60 [facility] Comment on above: Order Comment: No: D o not add to previous draw Performed By: #### 0 0071, 67478, 02001 #### [facility] [address] MAGNESIUM BLOODon 09-13-2020 Magnesium [Mass/Vol] 2.1 mg/dL Normal 1.9-2.7 [facility] Comment on above: Order Comment: No: D o not add to previous draw Performed By: #### 1 0070, 33332, 98589, 32247 ####[facility] [address] PHOSPHORUS BLOODon 1 Phosphate [Mass/Vol] 4.0 mg/dL Normal 2.5-5.0 [facility] Comment on above: Order Comment: No: D o not add to previous draw Performed By: #### 1 0070, 05922, 85763, 24510 ####[facility] [address] PROTHROMBIN TIMEon 1 INR Coag (PPP) [Relative time] 0.92 {INR} Normal 0.91-1.16 [facility] Comment on above: Result Comment: ACCC P RECOMMENDED INR FOR WARFARIN THERAPY --------- ------- CONDITION INR PROPHYLAXIS OF VENOUS THROMBOSIS 2-3 (HIGH-RISK SURGERY) TREATMENT OF VENOUS THROMBOSIS 2-3 TREATMENT OF PULMONARY EMBOLISM 2-3 PREVENTION OF SYSTEMIC EMBOLISM: 2-3 ACUTE MYOCARDIAL INFARCTION TISSUE HEART VALVES VALVULAR HEART DISEASE ATRIAL FIBRILLATION RECURRENT SYSTEMIC EMBOLISM MECHANICAL HEART VALVE 2.5-3.5 FROM: ORAL ANTICOAGULANTS. MECHANISM OF ACTION, CLINICAL EFFECTIVENESS, AND OPTIMAL THERAPEUTIC RANGE. CHEST 1995;108:[id number]. Performed By: #### 3 0477, 89701, 37634 ####[facility] [facility].[address] PT Coag (PPP) [Time] 12.4 s Normal 12.3-14.8 [facility] Comment on above: Result Comment: ALL RESULTS MUST BE INTERPRETED WITH RESPECT TO BLOOD DRAWING ARTIFACT OR DILUTION ERROR OF ANTICOAGULANT AT THE TIME OF SAMPLING. Performed By: #### 3 0477, [id number], [id number] ####[facility].[address] TROPONIN-Ion 09-13-2020 Troponin I.cardiac [Mass/Vol] 0.37 ng/mL Critically high 0.00-0.04 The [facility] Comment on above: Order Comment: No: D o not add to previous draw Result Comment: M-TR OPONIN INITIAL CRITICAL HIGH; RESPUN AND RETESTED M-CRITICAL RESULT(S) REVIEWED, CALLED TO AND READ BACK BY SHERRIE RUBIO RN AT [id number]. REFERENCE RANGES: 0.00 - 0.04 ng/ml NORMAL 0.05 - 0.50 ng/ml INDETERMINATE > 0.50 ng/ml CONSISTENT WITH AN M.I. Performed By: #### 1 0070, [id number], [id number], [id number] ####[facility].[address] [facility] 09-14-19 21 UNFRACTIONATED HEPARIN <0.10 Critically low 0.30-0.70 [facility] Comment on above: Result Comment: Fatou roxaban and Apixaban will interfere with the anti Xa assay used to monitor UFH and LMWH. RESULTS CHECKED AND CALLED. ACCURATELY READ BACK BY Sherrie Rubio RN at [id number]. Performed By: #### 3 0477, [id number], [id number] ####[facility] [facility] CBC COMPLETE BLOOD COUNTon 0 11-10-2019 Erythrocyte distribution width (RBC) [Ratio] 13.5 % Normal 11.5-15.0 [facility] Comment on above: Order Comment: No: D o not add to previous draw Performed By: #### 0 0071, 10360, 02798 #### [facility] [address] [place] [address], [facility] Hematocrit (Bld) [Volume fraction] 36.2 % Normal 36.0-45.0 [facility] Comment on above: Order Comment: No: D o not add to previous draw Performed By: #### 0 007, 04237, 99170 #### [facility] [address] [place] [address], [facility] Hemoglobin (Bld) [Mass/Vol] 12.1 g/dL Normal 12.0-15.0 [facility] Comment on above: Order Comment: No: D o not add to previous draw Performed By: #### 0 70, 13706, 83250 #### [facility] [address] [place] [address], [place] MCH (RBC) [Entitic mass] 30.0 pg Normal 27.0-33.0 [facility] Comment on above: Order Comment: No: D o not add to previous draw Performed By: #### 0 007, 45263, 13047 #### [facility] [address] [place] [address], [facility] MCHC (RBC) [Mass/Vol] 33.4 g/dL Normal 32.0-35.0 [facility] Comment on above: Order Comment: No: D o not add to previous draw Performed By: #### 0 0071, 71153, 56919 #### [facility] [address] [place] [address], [place] MCV (RBC) [Entitic vol] 89.6 fL Normal 82.0-98.0 [facility] Comment on above: Order Comment: No: D o not add to previous draw Performed By: #### 0 007, 05963, 40317 #### [facility] [address] [place] [address], [facility] Nucleated RBC/100 WBC (Bld) [Ratio] 0 % Normal 0-0 [facility] Comment on above: Order Comment: No: D o not add to previous draw Performed By: #### 0 0071, 67177, 36459 #### [facility] [address] [place] [address], [facility] PLAT CNT 229 10*3/uL Normal 150-400 [facility] Comment on above: Order Comment: No: D o not add to previous draw Performed By: #### 0 0071, 32681, 13046 #### [facility] [address] [place] [facility] [place] [address], [facility] RBC (Bld) [#/Vol] 4.04 10*6/uL Normal 3.80-5.00 [facility] Comment on above: Order Comment: No: D o not add to previous draw Performed By: #### 0 0071, 65376, 78469 #### [facility] [address] [facility] [place] [address], [facility] WBC (Bld) [#/Vol] 6.91 10*3/uL Normal 4.00-10.60 [facility] Comment on above: Order Comment: No: D o not add to previous draw Performed By: #### 0 0071, 60216, 57166 #### [facility] [address] [facility] [place] [address], [facility] COMP METABOLIC PANELon 11-09 Albumin [Mass/Vol] 3.4 g/dL Low 3.5-5.7 [facility] Comment on above: Order Comment: No: D o not add to previous draw Performed By: #### 0 0121 #### [facility] [address] [place] [address], [facility] ALKALINE PHOSPH 65 IU/L Normal 34-104 [facility] Comment on above: Order Comment: No: D o not add to previous draw Performed By: #### 0 0121 #### [facility] [address] [place] [address], [place] ALT [Catalytic activity/Vol] 12 U/L Normal 7-52 [facility] Comment on above: Order Comment: No: D o not add to previous draw Performed By: #### 0 0121 #### [facility] [address] [place] [address], [place] AST [Catalytic activity/Vol] 16 U/L Normal 13-39 [facility] Comment on above: Order Comment: No: D o not add to previous draw Performed By: #### 0 0121 #### [facility] [address] [place] [address], [place] Bilirubin [Mass/Vol] 0.3 mg/dL Normal 0.3-1.0 [facility] Comment on above: Order Comment: No: D o not add to previous draw Performed By: #### 0 0121 #### [facility] [address] [place] [address], [place] Calcium [Mass/Vol] 8.6 mg/dL Normal 8.6-10.3 [facility] Comment on above: Order Comment: No: D o not add to previous draw Performed By: #### 0 0121 #### [facility] [address] [place] [address], [place] Chloride [Moles/Vol] 107 mmol/L Normal 98-107 [facility] Comment on above: Order Comment: No: D o not add to previous draw Performed By: #### 0 0121 #### [facility] [address] [place] [address], [place] CO2 [Moles/Vol] 25 mmol/L Normal 21-31 [facility] Comment on above: Order Comment: No: D o not add to previous draw Performed By: #### 0 0121 #### [facility] [address] [place] [address], [place] Creatinine [Mass/Vol] 0.72 mg/dL Normal 0.60-1.20 [facility] Comment on above: Order Comment: No: D o not add to previous draw Performed By: #### 0 0121 #### [facility] [address] [place] [address], [place] GFR/1.73 sq M.predicted among blacks MDRD (S/P/Bld) [Vol rate/Area] mL/min/{1.73_m2} Normal >60 [facility] Comment on above: Order Comment: No: D o not add to previous draw Performed By: #### 0 0121 #### [facility] [address] [place] [address], [facility] GFR/1.73 sq M.predicted among non-blacks MDRD (S/P/Bld) [Vol rate/Area] mL/min/{1.73_m2} Normal >60 [facility] Comment on above: Order Comment: No: D o not add to previous draw Performed By: #### 0 0121 #### [facility] [address] [place] [address], [facility] Glucose [Mass/Vol] 117 mg/dL High 70-100 [facility] Comment on above: Order Comment: No: D o not add to previous draw Performed By: #### 0 0121 #### [facility] [address] [place] [address], [place] Potassium [Moles/Vol] 3.5 mmol/L Normal 3.5-5.1 [facility] Comment on above: Order Comment: No: D o not add to previous draw Performed By: #### 0 0121 #### [facility] [address] [place] [address], [place] Protein [Mass/Vol] 5.9 g/dL Low 6.0-8.3 [facility] Comment on above: Order Comment: No: D o not add to previous draw Performed By: #### 0 0121 #### [facility] [address] [place] [address], [place] Sodium [Moles/Vol] 138 mmol/L Normal 136-145 [facility] Comment on above: Order Comment: No: D o not add to previous draw Performed By: #### 0 0121 #### [facility] [address] [place] [address], [place] Urea nitrogen [Mass/Vol] 14 mg/dL Normal 7-25 [facility] Comment on above: Order Comment: No: D o not add to previous draw Performed By: #### 0 0121 #### [facility] [address] [place] [address], [place] BASIC METABOLIC PANELon 08 Calcium [Mass/Vol] 9.6 mg/dL Normal 8.6-10.3 [facility] Comment on above: Performed By: #### 0 0071, 07524, 47022 #### [facility] [address] [place] [address], [place] Chloride [Moles/Vol] 103 mmol/L Normal 98-107 [facility] Comment on above: Performed By: #### 0 0071, 61344, 18838 #### [facility] [address] [place] [address], [place] CO2 [Moles/Vol] 28 mmol/L Normal 21-31 [facility] Comment on above: Performed By: #### 0 0071, 57162, 35357 #### [facility] [address] [place] [address], [place] Creatinine [Mass/Vol] 0.77 mg/dL Normal 0.60-1.20 [facility] Comment on above: Performed By: #### 0 0071, 63100, 23244 #### [facility] [address] [place] [address], [place] GFR/1.73 sq M.predicted among blacks MDRD (S/P/Bld) [Vol rate/Area] mL/min/{1.73_m2} Normal >60 [facility] Comment on above: Performed By: #### 0 0071, 34471, 85757 #### [facility] [address] [place] [address], [facility] GFR/1.73 sq M.predicted among non-blacks MDRD (S/P/Bld) [Vol rate/Area] mL/min/{1.73_m2} Normal >60 [facility] Comment on above: Performed By: #### 0 0071, 17194, 84459 #### [facility] [address] [place] [address], [facility] Glucose [Mass/Vol] 116 mg/dL High 70-100 [facility] Comment on above: Performed By: #### 0 0071, 38807, 28354 #### [facility] [address] [place] [address], [facility] Potassium [Moles/Vol] 3.7 mmol/L Normal 3.5-5.1 [facility] Comment on above: Performed By: #### 0 0071, 31219, 63236 #### [facility] [address] [place] [address], [place] Sodium [Moles/Vol] 139 mmol/L Normal 136-145 [facility] Comment on above: Performed By: #### 0 0071, 88233, 52073 #### [facility] [address] [place] [address], [place] Urea nitrogen [Mass/Vol] 14 mg/dL Normal 7-25 [facility] Comment on above: Performed By: #### 0 0071, 78983, 51877 #### [facility] [address] [place] [address], [place] CBC COMPLETE BLOOD COUNTon 0 - Erythrocyte distribution width (RBC) [Ratio] 13.5 % Normal 11.5-15.0 [facility] Comment on above: Performed By: #### 5 0608 ####[facility].[address] Hematocrit (Bld) [Volume fraction] 42.5 % Normal 36.0-45.0 [facility] Comment on above: Performed By: #### 5 0608 ####[facility].[address] Hemoglobin (Bld) [Mass/Vol] 13.9 g/dL Normal 12.0-15.0 [facility] Comment on above: Performed By: #### 5 0608 ####[place] [address] [address] MCH (RBC) [Entitic mass] 29.6 pg Normal 27.0-33.0 [facility] Comment on above: Performed By: #### 5 0608 ####[facility].[address] MCHC (RBC) [Mass/Vol] 32.7 g/dL Normal 32.0-35.0 [facility] Comment on above: Performed By: #### 5 0608 ####[facility] MCV (RBC) [Entitic vol] 90.4 fL Normal 82.0-98.0 [facility] Comment on above: Performed By: #### 5 0608 ####[facility] [facility].[address] Nucleated RBC/100 WBC (Bld) [Ratio] 0 % Normal 0-0 [facility] Comment on above: Performed By: #### 5 0608 ####[facility] [facility] [place] [address], [facility] PLAT CNT 292 10*3/uL Normal 150-400 [facility] Comment on above: Performed By: #### 5 0608 ####[facility] [facility] [place] [address], [facility] RBC (Bld) [#/Vol] 4.70 10*6/uL Normal 3.80-5.00 [facility] Comment on above: Performed By: #### 5 0608 ####[facility] [facility] [place] [address], [facility] WBC (Bld) [#/Vol] 9.92 10*3/uL Normal 4.00-10.60 [facility] Comment on above: Performed By: #### 5 0608 ####[facility] Cardiovascular Lab Reporton 11-09-2019 Cardiovascular Lab Report [email or web address] MR #: [id number] Department of Physician: [facility] Omar Keyes M.D. Division of Service Date: 11/09/2019 Cardiology Birthdate: 1970 Adult Cardiovascular Room #: [facility] [address] [place] [address] Cardiovascular Laboratory Report INDICATIONS: The patient is a 49-year-old woman with a large patent foramen ovale and intra-atrial septal aneurysm and evidence of prior cerebrovascular accident by MRI. She was evaluated in Cardiology and Neurology Clinics and was recommended PFO closure after investigation and ruling out other causes for stroke. She is brought for that purpose today. PROCEDURES: 1. Access into the right and left common femoral veins under ultrasound guidance. 2. Left superior pulmonary venography. 3. Intracardiac echocardiography. 4. Successful PFO closure using an Amplatzer 25 mm PFO occluder device under fluoroscopic and intracardiac echocardiography guidance. METHODS: Procedure was explained to the patient with risks and benefits. She signed informed consent. 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 Both groin areas were prepped and draped in usual fashion. Using ultrasound guidance and micropuncture technique, the right and left common femoral veins were accessed and a 6-[place] x 11 cm sheath was placed on the right and 11-[place] x 11 cm sheath was placed on the left. Heparin was given intravenously and therapeutic ACT confirmed during the rest of the procedure. A AcuNav 10-[place] intracardiac echocardiography catheter was advanced through the left femoral venous access and used to perform baseline imaging of the cardiac structures with identification of the interatrial septum and measurement of the rims. A 6-[place] multipurpose catheter was advanced over a J-tipped wire and under fluoroscopy and intracardiac echocardiography guidance, the patent foramen ovale was crossed and a wire was advanced to the left superior pulmonary vein. Position was confirmed by pulmonary venous angiography. The catheter was advanced and then used to place an exchange length J-tipped Amplatz Super Stiff wire over which the 9-[place] Amplatzer delivery sheath was advanced to the left atrial cavity. Based on measurement of the superior vena cava rim being at least 9 mm and the aortic rim being at least 11 mm and the presence of floppy interatrial septum with an aneurysm, we decided to proceed with a 25 mm PFO occluder device. This was prepped using standard techniques and advanced through the delivery sheath. The left atrial disk was deployed. The assembly was brought backwards abutting the septum and right atrial disk was deployed. Intracardiac echocardiography confirmed adequate seal with good position and no impingement on cardiac structures. Therefore, the device was released. Final intracardiac echocardiography was performed showing no evidence of pericardial effusion as well as adequate position of the device and no impingement on cardiac structures. The delivery sheath was exchanged to a 9-[place] x 11 cm sheath. The intracardiac echocardiography catheter was removed. The procedure was concluded. The patient tolerated the procedure well. She was transferred to cardiovascular recovery area. The access sheath will be removed and manual compression applied for hemostasis when the ACT is subtherapeutic. She will be admitted for overnight observation. TOTAL FLUORO TIME: 23.12 minutes. TOTAL AIR KERMA: 437 mGy. TOTAL CONTRAST VOLUME: 5 mL. RECOMMENDATIONS: 1. The patient will be monitored for arrhythmia and symptoms. 2. The patient will obtain a chest x-ray and an echocardiogram and an EKG the next morning. 3. Endocarditis prophylaxis for 6 months after PFO closure. 4. The patient will be seen in followup in clinic in 1 month with an echocardiogram. 5. Continue aspirin and Plavix therapy for at least 6 months after PFO closure. Electronically Signed by: Adalid Keyes M.D. 11/11/2019 08:09 A Adalid Keyes M.D. Date Dict: 11/09/2019/10:30 A/Adalid Keyes M.D. Date Trans: 11/09/2019 11:14 A/mario [id number] cc: Debi Leon D.O. [facility] [address], [facility] [address] Dariusz Keen M.D. [address] [place] [address] A [facility] [id number] [facility] Vital Signs Date Time Vital Sign Value Performing Clinician Faci lity 05-17-2024 09:14-0500 Body height 162.56 cm [facility] 05-17-2024 09:14-0500 Body mass index (BMI) [Ratio] 35 kg/m2 [facility] 05-17-2024 09:14-0500 Body weight 92.53 kg [facility] 05-17-2024 09:14-0500 Diastolic blood pressure 86 mm[Hg] [facility] 05-17-2024 09:14-0500 Heart rate 57 /min [facility] 05-17-2024 09:14-0500 Systolic blood pressure 154 mm[Hg] [facility] 05-13-2024 09:45-0500 Diastolic blood pressure 78 mm[Hg] [facility] 05-13-2024 09:45-0500 Systolic blood pressure 142 mm[Hg] [facility] 05-13-2024 09:04-0500 Body height 162.56 cm [facility] 05-13-2024 09:04-0500 Body mass index (BMI) [Ratio] 35.2 kg/m2 [facility] 05-13-2024 09:04-0500 Body temperature 98 [degF] [facility] 05-13-2024 09:04-0500 Body weight 93.15 kg [facility] 05-13-2024 09:04-0500 Heart rate 74 /min [facility] 05-13-2024 09:04-0500 Respiratory rate 16 /min [facility] 05-13-2024 09:04-0500 SaO2% (BldA) [Mass fraction] 98 % [facility] 02-29-2024 08:39-0500 Body height 162.56 cm [facility] 02-29-2024 08:39-0500 Body mass index (BMI) [Ratio] 36.3 kg/m2 [facility] 02-29-2024 08:39-0500 Body weight 96.16 kg [facility] 02-29-2024 08:39-0500 Diastolic blood pressure 96 mm[Hg] [facility] 02-29-2024 08:39-0500 Heart rate 60 /min [facility] 02-29-2024 08:39-0500 Systolic blood pressure 167 mm[Hg] [facility] 12-28-2023 12:46-0400 Body height 162.56 cm [facility] 12-28-2023 12:46-0400 Body mass index (BMI) [Ratio] 35.9 kg/m2 [facility] 12-28-2023 12:46-0400 Body temperature 97.3 [degF] [facility] 12-28-2023 12:46-0400 Body weight 94.8 kg [facility] 12-28-2023 12:46-0400 Diastolic blood pressure 100 mm[Hg] [facility] 12-28-2023 12:46-0400 Heart rate 82 /min [facility] 12-28-2023 12:46-0400 Respiratory rate 16 /min [facility] 12-28-2023 12:46-0400 SaO2% (BldA) [Mass fraction] 98 % [facility] 12-28-2023 12:46-0400 Systolic blood pressure 176 mm[Hg] [facility] 10-11-2023 13:18-0400 Diastolic blood pressure 100 mm[Hg] Michelet Velázquez [facility] 10-11-2023 13:18-0400 Heart rate 64 /min Michelet Velázquez [facility] 10-11-2023 13:18-0400 Respiratory rate 18 /min Michelet Velázquez [facility] 10-11-2023 13:18-0400 SaO2% (BldA) [Mass fraction] 96 % Michelet Velázquez [facility] 10-11-2023 13:18-0400 Systolic blood pressure 180 mm[Hg] Michelet Velázquez [facility] 10-11-2023 09:52-0400 Body height 162.56 cm [facility] 10-11-2023 09:52-0400 Body mass index (BMI) [Ratio] 35.5 kg/m2 [facility] 10-11-2023 09:52-0400 Body weight 93.89 kg [facility] 10-11-2023 09:52-0400 Diastolic blood pressure 92 mm[Hg] [facility] 10-11-2023 09:52-0400 Heart rate 57 /min [facility] 10-11-2023 09:52-0400 Systolic blood pressure 165 mm[Hg] [facility] 09-14-2023 10:06-0400 Body height 162.56 cm [facility] 09-14-2023 10:06-0400 Body mass index (BMI) [Ratio] 36 kg/m2 [facility] 09-14-2023 10:06-0400 Body weight 95.25 kg [facility] 08-31-2023 08:35-0400 Body height 162.56 cm [facility] 08-31-2023 08:35-0400 Body mass index (BMI) [Ratio] 36 kg/m2 [facility] 08-31-2023 08:35-0400 Body weight 95.25 kg [facility] 08-31-2023 08:35-0400 Diastolic blood pressure 83 mm[Hg] [facility] 08-31-2023 08:35-0400 Heart rate 61 /min [facility] 08-31-2023 08:35-0400 Systolic blood pressure 148 mm[Hg] [facility] 03-22-2023 07:14-0500 Blood Pressure Location Jairo Christofferson [facility] 03-22-2023 07:14-0500 Diastolic blood pressure 94 mm[Hg] Jairo Christofferson [facility] 03-22-2023 07:14-0500 Heart rate 66 /min Jairo Christofferson [facility] 03-22-2023 07:14-0500 Respiratory rate 16 /min Jairo Christofferson [facility] 03-22-2023 07:14-0500 SaO2% (BldA) [Mass fraction] 98 % Jairo Christofferson [facility] 03-22-2023 07:14-0500 Systolic blood pressure 153 mm[Hg] Jairo Christofferson [facility] 03-19-2023 12:54-0500 Blood Pressure Location Jairo Christofferson [facility] 03-19-2023 12:54-0500 Diastolic blood pressure 100 mm[Hg] Jairo Christofferson [facility] 03-19-2023 12:54-0500 Heart rate 71 /min Jairo Christofferson [facility] 03-19-2023 12:54-0500 SaO2% (BldA) [Mass fraction] 97 % Jairo Christofferson [facility] 03-19-2023 12:54-0500 Systolic blood pressure 190 mm[Hg] Jairo Christofferson [facility] 03-18-2023 13:15-0500 Body height 162.56 cm Benson Romero Other [facility] Other 03-18-2023 13:15-0500 Body mass index (BMI) [Ratio] 36.21 kg/m2 Benson Romero Other [facility] Other 03-18-2023 13:15-0500 Body weight 95.71 kg Benson Romero Other [facility] Other 03-18-2023 13:15-0500 Diastolic blood pressure 88 mm[Hg] Benson Romero Other [facility] Other 03-18-2023 13:15-0500 SaO2% (BldA) [Mass fraction] 97 % Benson Romero Other [facility] Other 03-18-2023 13:15-0500 Systolic blood pressure 143 mm[Hg] Benson Romero Other [facility] Other 12-01-2022 13:00-0400 Body height 162.56 cm Benson Romero Other [facility] Other 12-01-2022 13:00-0400 Body mass index (BMI) [Ratio] 34.67 kg/m2 Benson Romero Other [facility] Other 12-01-2022 13:00-0400 Body weight 91.63 kg Benson Romero Other [facility] Other 12-01-2022 13:00-0400 Diastolic blood pressure 81 mm[Hg] Benson Romero Other [facility] Other 12-01-2022 13:00-0400 Systolic blood pressure 148 mm[Hg] Benson Romero Other [facility] Other 09-24-2022 12:51-0400 Diastolic blood pressure 122 mm[Hg] Jairo Christofferson [facility] 09-24-2022 12:51-0400 Mean blood pressure 148 mm[Hg] Jairo Christofferson [facility] 09-24-2022 12:51-0400 Systolic blood pressure 201 mm[Hg] Jairo Christofferson [facility] 09-24-2022 12:42-0400 Blood Pressure Location Jairo Christofferson [facility] 09-24-2022 12:42-0400 Diastolic blood pressure 110 mm[Hg] Jairo Christofferson [facility] 09-24-2022 12:42-0400 Heart rate 76 /min Jairo Christofferson [facility] 09-24-2022 12:42-0400 Respiratory rate 18 /min Jairo Christofferson [facility] 09-24-2022 12:42-0400 SaO2% (BldA) [Mass fraction] 96 % Jairo Christofferson [facility] 09-24-2022 12:42-0400 Systolic blood pressure 198 mm[Hg] Jairo Christofferson [facility] 04-08-2022 09:16-0500 Blood Pressure Location Jairo Christofferson [facility] 04-08-2022 09:16-0500 Body temperature 98.24 [degF] Jairo Christofferson [facility] 04-08-2022 09:16-0500 Diastolic blood pressure 105 mm[Hg] Jairo Christofferson [facility] 04-08-2022 09:16-0500 Heart rate 76 /min Jairo Christofferson [facility] 04-08-2022 09:16-0500 Respiratory rate 16 /min Jairo Christofferson [facility] 04-08-2022 09:16-0500 SaO2% (BldA) [Mass fraction] 98 % Jairo Christofferson [facility] 04-08-2022 09:16-0500 Systolic blood pressure 197 mm[Hg] Jairo Christofferson [facility] 04-02-2022 13:48-0500 Diastolic blood pressure 122 mm[Hg] Jairo Christofferson [facility] 04-02-2022 13:48-0500 Mean blood pressure 143 mm[Hg] Jairo Christofferson [facility] 04-02-2022 13:48-0500 Systolic blood pressure 186 mm[Hg] Jairo Christofferson [facility] 04-02-2022 13:32-0500 Blood Pressure Location Jairo Christofferson [facility] 04-02-2022 13:32-0500 Diastolic blood pressure 112 mm[Hg] Jairo Christofferson [facility] 04-02-2022 13:32-0500 Heart rate 80 /min Jairo Christofferson [facility] 04-02-2022 13:32-0500 Respiratory rate 18 /min Jairo Christofferson [facility] 04-02-2022 13:32-0500 SaO2% (BldA) [Mass fraction] 98 % Jairo Christofferson [facility] 04-02-2022 13:32-0500 Systolic blood pressure 183 mm[Hg] Jairo Christofferson [facility] 03-19-2021 09:13-0500 Diastolic blood pressure 98 mm[Hg] Dariusz Jenna Keen Work Phone: [facility] 250 DO Work Phone: 03-19-2021 09:13-0500 Systolic blood pressure 140 mm[Hg] Dariusz Jenna Keen Work Phone: [facility] 250 DO Work Phone: 03-19-2021 08:57-0500 Body height 162.56 cm Dariusz Jenna Keen Work Phone: [facility] 250 DO Work Phone: 03-19-2021 08:57-0500 Body mass index (BMI) [Ratio] 36.39 kg/m2 Dariusz Jenna Keen Work Phone: [facility] 250 DO Work Phone: 03-19-2021 08:57-0500 Body surface area Derived from formula 2.01 m2 Dariusz Jenna Keen Work Phone: [facility] 250 DO Work Phone: 03-19-2021 08:57-0500 Body weight 96.16 kg Dariusz Jenna Keen Work Phone: [facility] 250 DO Work Phone: 03-19-2021 08:57-0500 Diastolic blood pressure 101 mm[Hg] Dariusz Jenna Keen Work Phone: [facility] 250 DO Work Phone: 03-19-2021 08:57-0500 Heart rate 74 /min Dariusz [place]i Work Phone: [facility] 250 DO Work Phone: 03-19-2021 08:57-0500 Systolic blood pressure 170 mm[Hg] Dariusz Alvarezight Work Phone: [facility] 250 DO Work Phone: Encounters Encounter Date Encounter Type Care Provider Facility Start: 05-17-2024 End: 05-17-2024 ambulatory [facility] Work Phone: Start: 05-17-2024 End: 05-17-2024 Patient encounter procedure [facility] Physician [facility] Work Phone: Start: 05-13-2024 End: 05-13-2024 ambulatory [facility] Work Phone: Start: 05-13-2024 End: 05-13-2024 Patient encounter procedure [facility] Physician [facility] Work Phone: Start: 03-14-2024 Non-patient / Non-visit [facility] Physician [facility] Work Phone: Start: 02-29-2024 End: 02-29-2024 Patient encounter procedure [facility] Physician [facility] Work Phone: Start: 02-22-2024 Non-patient / Non-visit [facility] Physician [facility] Work Phone: Start: 12-28-2023 End: 12-28-2023 ambulatory [facility] Work Phone: Start: 12-28-2023 End: 12-28-2023 Patient encounter procedure [facility] Physician [facility] Work Phone: Start: 10-11-2023 End: 10-11-2023 ambulatory RAINE Velázquez [place] Start: 10-11-2023 End: 10-11-2023 Patient encounter procedure Michelet Velázquez [facility] Start: 10-11-2023 End: 10-11-2023 ambulatory [facility] Work Phone: Start: 10-11-2023 End: 10-11-2023 Patient encounter procedure [facility] Physician [facility] Work Phone: Start: 09-14-2023 End: 09-14-2023 ambulatory [facility] Work Phone: Start: 09-14-2023 End: 09-14-2023 Patient encounter procedure [facility] Physician [facility] Work Phone: Start: 08-31-2023 End: 08-31-2023 ambulatory [facility] Work Phone: Start: 08-31-2023 End: 08-31-2023 Patient encounter procedure [facility] Physician [facility] Work Phone: Start: 05-07-2023 End: 05-07-2023 ambulatory XXXX NONE Facility[place] Start: 04-06-2023 End: 04-06-2023 ambulatory Benson Romero Other [facility] Other Start: 04-06-2023 Telephone encounter Benson Romero [facility] Start: 03-22-2023 End: 03-22-2023 Admission to same day surgery center Jairo Contreras [facility] Start: 03-22-2023 End: 03-22-2023 ambulatory Jairo Contreras Facility[place] Start: 03-19-2023 End: 03-19-2023 ambulatory XXXX NONE Facility[place] Start: 03-19-2023 End: 03-19-2023 Patient encounter procedure Jairo Contreras [facility] Start: 03-18-2023 End: 03-18-2023 ambulatory Benson Romero Other [facility] Other Start: 03-18-2023 Patient encounter procedure Benson Romero [facility] Start: 03-04-2023 ambulatory XXXX NONE Facility:[facility] Start: 12-23-2022 End: 12-23-2022 ambulatory Benson Romero Other [facility] Other Start: 12-23-2022 Telephone encounter Benson Romero [facility] Start: 12-01-2022 End: 12-01-2022 ambulatory Benson Romero Other [facility] Other Start: 12-01-2022 Office outpatient ne w 45 minutes Benson Romero [facility] Start: 11-12-2022 End: 11-12-2022 ambulatory Jairo Contreras Facility[place] Start: 10-12-2022 End: 10-12-2022 Patient encounter procedure Jairo Contreras [facility] Start: 09-24-2022 End: 09-24-2022 Patient encounter procedure Jairo Contreras [facility] Start: 05-11-2022 End: 05-11-2022 Patient encounter procedure Jairo Contreras [facility] Start: 04-28-2022 End: 04-29-[address] DARIUSZ KEEN . Facility:[facility] Start: 04-08-2022 End: 04-08-2022 Admission to same day surgery center Jairo Contreras [facility] Start: 04-07-2022 End: 04-08-[address] DARIUSZ KEEN . Facility:[facility] Start: 04-02-2022 End: 04-02-2022 Patient encounter procedure Jairo Contreras [facility] Start: 04-01-2022 End: 04-02-[address] DAIRUSZ KEEN . Facility:[facility] Start: 12-02-2021 End: 12-03-[address] DARIUSZ KEEN . Facility:[facility] Start: 10-22-2021 Rx Renewal Dariusz Keen Work Phone: [facility] 250 DO Work Phone: Start: 10-08-2021 End: 10-09-2021 ambulatory ROBI ELDER Facility: Start: 08-25-2021 End: 08-26-[address] DARIUSZ KEEN . Facility:[facility] Start: 08-15-2021 End: 08-16-[address] DARIUSZ KEEN . Facility:[facility] Start: 07-29-2021 End: 07-30-[address] ANIKA WHALEY Facility:[facility] Start: 07-23-2021 End: 07-31-[address] DARIUSZ KEEN . Facility: Start: 07-08-2021 Rx Renewal Dariusz Keen Work Phone: [facility] 250 DO Work Phone: Start: 04-10-2021 Rx Renewal Dariusz Keen Work Phone: [facility] 250 DO Work Phone: Start: 03-19-2021 Office outpatient vi sit 25 minutes Dariusz Keen Work Phone: [facility] 250 DO Work Phone: Start: 09-13-2020 End: 09-17-2020 Evaluation and management of inpatient DARIUSZ KEEN Facility:[facility] Start: 11-09-2019 End: 11-10-2019 ambulatory DARIUSZ KEEN Facility:[facility] Echocardiogram normal Dariusz Jenna Joanna ht Work Phone: [facility] 250 DO Work Phone: Procedures Date Procedure Procedure Detail Performing Clinician Start: 05-13-2024 Quick Strep (POC) Start: 12-28-2023 COVID Antigen (POC) Start: 12-28-2023 Quick Strep (POC) Start: 03-22-2023 Catheterization of left heart Jairo Contreras Start: 04-08-2022 Catheterization of left heart Jairo Contreras Start: 01-04-2023 Percutaneous coronary intervention of anterior descending branch of left coronary artery Jairo Contreras Start: 09-16-2020 Fluoroscopy of Left Heart using Low Osmolar Contrast [facility] Start: 09-16-2020 FLUOROSCOPY OF MULT COR ART USING L OSM CONTRAST [facility] [place] Start: 09-16-2020 MEASURE OF CARDIAC SAMPL \T\ PRESSURE, L HEART, PERC APPROACH [facility] Start: 09-16-2020 ULTRASONOGRAPHY OF RIGHT AND LEFT HEART, TRANSESOPHAGEAL SAMER Vlad AGGARWAL Appendectomy Jairo cunha section Dariusz Snow t Work Phone: section Jairo burnham Cholecystectomy Dariusz Keen Work Phone: Closure of patent fo ramen ovale Dariusz Keen Work Phone: Colposcope, device (physical object) Jairo Ben Gallbladder structur e (body structure) Jairo Contreras Hysterectomy Dariusz Keen Work Phone: Oophorectomy Jairo cunha Operation on ovary Dariusz Friend ght Work Phone: Total colonoscopy Dariusz Marshall ht Work Phone: Plan of Treatment Date Care Activity Detail Author Start: 11-06-2021 FUV, Provider: Navdeep German, Status: Pen, Time: 10:30 AM FUV, Provider: Navdeep German, Status: Pen, Time: 10:30 AM [facility] 250 DO Work Phone: Start: 04-08-2021 FUV, Provider: Navdeep German, Status: Pen, Time: 11:15 AM FUV, Provider: Navdeep German, Status: Pen, Time: 11:15 AM [facility] 250 DO Work Phone: Comprehensive metabo lic 1999 panel - Serum or Plasma [facility] Comprehensive metabo lic 2000 panel - Serum or Plasma [facility] Patient Education [facility] Work Phone: XR Knee - left 4 Views [facility] Immunizations Immunization Date Immunization Notes Care Provider Fa teaganty 01-10-2021 Moderna COVID-19 Vac cine 100 MCG/0.5ML Intramuscular Suspension Dariusz Jenna Keen Work Phone: [facility] 12-13-2020 Moderna COVID-19 Vac cine 100 MCG/0.5ML Intramuscular Suspension Dariusz Jenna Keen Work Phone: [facility] Payers Date Payer Category Payer Unknown [id number] 2.16.8 [id number] 1972 Unknown [id number] 2.16.8 [id number] 1972 Unknown [id number] 2.16.84 [id number] 1972 Unknown [id number] 2.16.84 [id number] 1972 Unknown [id number] 2.16.84 [id number] 1972 Unknown [id number] 2.16.84 [id number] 1972 Unknown [id number] 2.16.84 [id number] 1972 Unknown [id number] 2.16.84 [id number] 1972 Unknown [id number] 2.16.84 [id number] 1972 Unknown [id number] 2.16.84 [id number] 1972 Unknown [id number] 2.16.84 [id number] 1972 Unknown [id number] 2.16.8 [id number] 1972 Unknown [id number] 2.16.8 [id number] 1972 Unknown [id number] 2.16.8 [id number] 1972 Unknown [id number] 2.16.8 [id number] 1972 Unknown [id number] 2.16.8 [id number] 1972 Unknown [id number] 2.16.8 [id number] 1957 Medicaid [id number] 1957 Medicare [id number] Medicaid [id number] Self-pay Self Pay [id number] Unknown Social History Date Type Detail Facility No alcohol use No alcohol use [facility] 250 DO Work Phone: Comment on above: 1 pepsi daily.; Start: 04-02-2022 End: 03-18-2023 Tobacco smoking status Never smoked tobacco (finding) [facility] Tobacco smoking status Never [facility] Sex Assigned At Female [facility] Start: 1970 Sex Assigned At Female [facility] Start: 05-13-2024 End: 05-17-2024 Sex Female (finding) [facility] Medical Equipment Procedure Code Equipment Code Equipment Origin al Text Equipment Identifier Dates Unknown Unknown 04/08/22 Unknown Left Anterior Descending Coronary Artery FDA Start: 04-08-2022 FDA Start: 04-08-2022 Unknown Unknown 04/08/22 Unknown Left Anterior Descending Coronary Artery FDA Start: 04-08-2022 FDA Start: 04-08-2022 Unknown Unknown 04/08/22 Unknown Left Anterior Descending Coronary Artery FDA Start: 04-08-2022 FDA Start: 04-08-2022 Unknown Unknown 04/08/22 Unknown Left Anterior Descending Coronary Artery FDA Start: 04-08-2022 FDA Start: 04-08-2022 FREE STYLE LITE TEST STRIPS - Unknown Unknown 04/08/22 Unknown Left Anterior Descending Coronary Artery FDA Start: 04-08-2022 FDA Start: 04-08-2022 Unknown Unknown 04/08/22 Unknown Left Anterior Descending Coronary Artery FDA Start: 04-08-2022 FDA Start: 04-08-2022 Unknown Unknown 04/08/22 Unknown Left Anterior Descending Coronary Artery FDA Start: 04-08-2022 FDA Start: 04-08-2022 Lancets (Freesty le Lancets) 28 gauge misc Start: 03-30-2024 Lancets (Freesty le Lancets) 28 gauge misc Start: 02-29-2024 End: 03-21-2024 Lancets (Freesty le Lancets) 28 gauge misc Start: 03-21-2024 End: 03-30-2024 Lancets (Freesty le Lancets) 28 gauge misc Start: 03-30-2024 Lancets (Freesty le Lancets) 28 gauge misc Start: 02-29-2024 End: 03-21-2024 Lancets (Freesty le Lancets) 28 gauge misc Start: 03-21-2024 End: 03-30-2024 Functional Status Date Assessment Result Facility 10-11-2023 Functional Status N/A [facility] 03-22-2023 Functional Status N/A [facility] 03-19-2023 Functional Status N/A [facility] 09-24-[address] [facility] 04-08-2022 Functional Status N/A [facility] 04-02-[address] [facility] Clinical Notes 09-17-2020 to 02-29-2024 Note Date & Type Note Facility 02-29-2024 Evaluation note Diagnosis Onset Date Resolution Abdominal bloating acute Novemb er 2023 8:36am Elevated glucose level acute No vember 2023 8:36am Essential (primary) hypertension acute February 28, 024 8:36am Facial paresthesia acute Novemb er 2023 8:36am Influenza A acute May 13, 2024 9:03am [facility] Work Phone: 1(671) 227-574011-26-2024 Evaluation note* Diagnosis Onset Date Resolution Status Admit Date Abdominal bloating acute Novemb er 2023 8:36am Elevated glucose level acute No vember 2023 8:36am Essential (primary) hypertension acute February 28, 024 8:36am Facial paresthesia acute Novemb er 2023 8:36am Acute bacterial tonsillitis acute May 13, 2024 9:03am Influenza A acute May 13, 2024 9:03am [facility] Work Phone: 1(241) 376-643512-19-2023 Note [id number]23 NoteProcedure [facility] poss PCI via right radial for ongoing angina and unstable angina recent admission at [facility] Patient seen and examined. The risk/benefits of the procedure were thoroughly discussed with patient including specific attention to lack of onsite surgical backup and risk of nabil covid, and the patient agrees to proceed. Airway Assessment: Class I: Visualization of the soft palate, fauces, uvula, anterior and posteriorpillars Airway Abnormalities: none ASA Classification: ASA 2: Mild systemic disease Risks/Benefits of IV Sedation: Have been explained IV Sedation Plan: Patient agrees to IV sedation plan Assessment/Plan [facility] Comment: Electronically Signed By: Ben PARRISH, Jairo Robles\.br\Date and Time Signed: 03/23/23 07:41 [id number] Hospital Discharge instructions Patient Education 03/22/2023 11:28:20 CV - Cardiovascular Discharge Instructions (CUSTOM) [place], [place] CARDIOVASCULAR DISCHARGE INSTRUCTIONS Diet: Resume pre-procedure diet. Increase water intake the next 2 days to flush dye out of the body. Activity: If radial access: Limit your activity today. Do not operate a vehicle, machinery or power tools. NO LIFTING OVER 3 POUNDS for 3 days. Do not bend your wrist for 24 hours. May resume driving in 24 hours. No sexual activity for 1 week. Let pain/discomfort guide your activity. If you are having pain, stop. Return to the Emergency Room if you have trouble breathing, walking or nausea and vomiting. Medications: Resume pre-procedure medication, unless otherwise directed. Hold the following medications for 48 hours post procedure: Actoplus MetGlucophageGlucophage XR GlucovanceAvandametFortamet Xnf-togpqyuzdAolpmrTcsx-rxadoylwd GlumetzaJanumetMetaglip RiometGlycomet *Minimal pain, soreness and/or discomfort is expected. *You may take OTC non-steroidal anti-inflammatory to manage discomfort, unless contraindicated. If pain is not controlled with the above medications, contact your physician. Site Care: Do not remove dressing for 24 hours unless it becomes saturated, then replace. Keep site clean and dry; inspect site daily. Do not use any lotions, powders, or ointments at the groin or wrist site for 1 week. May shower 24 hours after the procedure. Clean site with soap and water. Pat dry and apply band aid. No tub baths, swimming or hot tubs for 3 days Post Procedure: Soreness and tenderness to the site can last up to one week. Bruising may occur to site. A responsible adult should be with you for the first 24 hours after you arrive home. Keep follow-up appointment. No smoking for 24 hours as it increases the risk of developing blood clots. If you are interested in smoking cessation, contact [facility] at [phone], ext. [phone]. In the event you are unable to reach your physician, please call [facility] at [phone] and the directional drill operator will assist you. Seek Immediate Medical Care for: Bleeding: Apply continuous pressure to the site and Call 911. Should the arm or leg become cold, numb, blue or white call your physician immediately. Signs of infection are redness, warmth, swelling, increased tenderness, colored drainage, fever or chills Chest pain Follow Up Care 03/19/2023 14:09:21 With:Jairo Contreras Address: [facility] When:05/07/2023 14:45:00 [facility]12-14-2023 Evaluation note* Encounter Date Diagnosis Assessment Notes Treatment Notes Treatment Clinical Notes Mar, Chest pain, unspecified type (ICD-10 - R07.9) Pt agrees to go to ER. No charge for today's visit. Report called to Doris at ER. Has followup w cardio tomorrow in [place]. Alexa states all of her symptoms are very similar to those of her previous heart attack. [facility] Other 08-29-2023 Evaluation note* Encounter Date Diagnosis Assessment Notes Treatment Notes Treatment Clinical Notes Nov, Mixed hyperlipidemia (ICD-10 - E78.2) Patient to continue to watch diet and increase exercise routine. Remain active as tolerated and we will continue to monitor with routine blood work. Patient is to continue with above medication as directed. Nov, Elevated glucose level (ICD-10 - R73.09) Check a1C Nov, Iron deficiency anemia (ICD-10 - D50.9) Assess ferritin to r/o recurrence of iron def anemia and her fatigue Nov, Fatigue, unspecified type (ICD-10 - R53.83) Assess thyroid Nov, Essential (primary) hypertension (ICD-10 - I10) Med refilled per Alexa request. Blood pressure remains well controlled at this time. Denies cardiac symptoms. Shows no signs or symptoms or poor control. Patient to continue with above medication and we will continue to monitor. Advised to pay attention to body and symptoms. Any developing patterns. Stay well hydrated. Nov, Coronary artery disease involving [place] coronary artery of [place] heart without angina pectoris (ICD-10 - I25.10) Continue f/u w [facility] Cardio [facility] Other 06-05-2023 Evaluation + Plan note Future Scheduled Tests Laboratory* HgbA1c 09/07/22 * TSH With T4fr Reflex 09/07/22 * CBC w/ Auto Diff 09/07/22 * Comprehensive Metabolic Panel 09/07/22 * Lipid Panel 09/07/22 Radiology* CV Cardiovascular 04/07/22 [facility]01-04-2023 Hospital Discharge instructions Patient Education 04/08/2022 13:08:49 CV - Cardiovascular PCI Discharge Instructions (CUSTOM) [place], [place] Cardiovascular PCI DISCHARGE INSTRUCTIONS Diet: Resume pre-procedure diet. Increase water intake the next 2 days to flush dye out of the body. Activity: If radial access: Limit your activity today. Do not operate a vehicle, machinery or power tools. NO LIFTING OVER 3 POUNDS for 3 days. Do not bend your wrist for 24 hours. May resume driving in 24 hours. Let pain/discomfort guide your activity. If you are having pain, stop. No sexual activity for 1 week. Return to the Emergency Room if you have trouble breathing, walking or nausea and vomiting. Medications: Resume pre-procedure medication, unless otherwise directed. Hold the following medications for 48 hours post procedure: Actoplus MetGlucophageGlucophage XR GlucovanceAvandametFortamet Jrj-mmjsxfszfPtlmxoHqha-xokunxqbx GlumetzaJanumetMetaglip RiometGlycomet Minimal pain, soreness and/or discomfort is expected. If you are prescribed an aspirin and/or antiplatelet (such as Plavix, Brilinta or Effient) do NOT stop taking these medications for any reason without talking to your transcription coordinator Site Care: Do not remove dressing for 24 hours unless it becomes saturated, then replace. Keep site clean and dry; inspect site daily. Do not use any lotions, powders, or ointments at the groin or wrist site for 1 week. May shower 24 hours after the procedure. Clean site with soap and water. Pat dry and apply band aid. No tub baths, swimming or hot tubs for 3 days. Post Procedure: Soreness and tenderness to the site can last up to one week. Bruising may occur to site. A responsible adult should be with you for the first 24 hours after you arrive home. Keep follow-up appointment. Carry your stent card with you at all times. This provides information about your heart disease forany doctor who cares for you. No smoking for 24 hours as it increases the risk of developing blood clots. If you are interested in smoking cessation, contact [facility] at [phone], ext. [phone]. In the event you are unable to reach your physician, please call [facility] at [phone] and the directional drill operator will assist you. Seek Medicare Care for: Bleeding: Apply continuous pressure to the site and Call 911. Should the arm or leg become cold, numb, blue or white call your physician immediately. Signs of infection are redness, warmth, swelling, getting more sore, colored drainage, fever or chills Chest pain Blood in your urine or stool Black tarry stools Follow Up Care 04/07/2022 15:40:27 With:Jairo Contreras Address: [address] [place], [place] [address]jenna [place] [id number] Business (1) When:04/30/2022 12:15:00 [facility]01-04-2023 Evaluation + Plan noteExtracted from: Title:Procedure Note Heart & Vascular Author:Jairo Morales MD Date:04/08/22 CAD in [place] artery, (I25.10: Atherosclerotic heart disease of [place] coronary artery without angina pectoris)CAD in [place] artery Orders: aspirin, Tab-Chew, Misc, Once, Stop date 04/08/22 12:16:53 EST, Physician Stop, 04/08/22 12:16:53 EST hydrALAZINE, Injection, Misc, Once, Stop date 04/08/22 12:11:59 EST, Physician Stop, 04/08/22 12:11:59 EST metoprolol, Injection, Misc, Once, Stop date 04/08/22 11:48:45 EST, Physician Stop, 04/08/22 11:48:45 EST metoprolol, Injection, Misc, Once, Stop date 04/08/22 12:02:13 EST, Physician Stop, 04/08/22 12:02:13 EST CV Cardiovascular CV Coronary IVUS FFR Initial CV Coronary IVUS Initial Echo Transthoracic Complete Future Appointments Appointment Date:04/30/2022 12:15:00 PM Scheduled Provider:Jairo Contreras MD Location:[facility] Appointment Type:Cardiology Follow Up (FT) Appointment Date:05/05/2022 08:00:00 AM Scheduled Provider: Location:.[facility] Appointment Type:CV Echo (FT) Diagnostic Tests Pending * CBC w/ Indices 04/09/22 * Basic Metabolic Panel 04/09/22 * Magnesium Level 04/09/22 * Troponin 04/09/22 Future Scheduled Tests Radiology* Echo Transthoracic Complete 05/05/22 * CV Cardiovascular 04/07/22 [facility]06-15-[facility]21 NoteMR#: [id number] I [facility] Pt. Name: Alexa Carey Admitted: 09/13/2020 Discharged: 09/17/2020 Date of : 1970 Physician: Erin Hilario MD DISCHARGE SUMMARY PRIMARY DIAGNOSES: 1. Non-ST elevation myocardial infarction, status post heart catheterization showed moderate coronary artery disease. 2. Uncontrolled hypertension, could be secondary, ? need outpatient workup. 3. Mixed dyslipidemia. 4. History of cerebrovascular accident and transient ischemic attack in the past. 5. Patent foramen ovale, status post closure by Dr. Keyes. 6. Depression. 7. Migraine headaches. CONSULTATION: Cardiology. HOSPITAL COURSE: As below. Patient is a 50-year-old female, presents to outside hospital complaining of substernal chest pain, radiated to her back, left shoulder, left arm that began yesterday afternoon. Pain 9/10 in intensity at its worse, was alleviated after she took initial nitroglycerin. She had an episode at the same exact time and then another episode at 7:30 persisted around like a couple minutes and then went away. Patient went to the ED during the 4th episode and was given nitroglycerin patch. Patient's high sensitive troponins were elevated, and patient was having associated shortness of breath, diaphoresis, and no nausea, vomiting, and subsequently transferred to the [facility] for further workup. Cardiology team consulted. Patient underwent heart catheterization that showed moderate CAD. No significant occlusion noted. Cardiology team recommended medical management. Patient has been following with Cardiology, Dr. Keyes in the office. Patient has a history of resistant hypertension on couple medication that was confirmed with the Cardiology team prior to discharge and recommended to continue all the medication prior admission and patient. Patient will be following up with Dr. Keyes regarding further secondary hypertension workup. PHYSICAL EXAMINATION: VITAL SIGNS: Patient's blood pressure has been stable prior discharge. At the time of discharge, patient's vitals stable. Blood pressure 134/64, heart rate 60, oxygen saturation 96% on room air. HEAD AND NECK: Atraumatic, normocephalic. Eyes, EOMI, PERRLA. CHEST: No sign of labored breathing. MUSCULOSKELETAL: Intact. SKIN: No rash. No bruises noted. NEUROLOGY: Nonfocal. PSYCH: Intact. Mood is stable. DISCHARGE MEDICATIONS: As per reconcile in the computer. DISPOSITION: Patient is going home in stable condition. TOTAL TIME: Total time 45 minutes evaluating the patient, reviewing the chart, and coordinating care with nursing staff. Electronically Signed by: Erin Hilario MD 09/18/2020 08:37 A Erin Hilario MD Date Dict: 09/17/2020/02:42 P/Erin Hilario MD Date Trans: 09/17/2020 04:19 P/mmo [id number] cc: Dariusz Keen M.D. [address] [place] [id number] + [facility] note Future Appointments Appointment Date:04/30/2022 12:15:00 PM Scheduled Provider:Jairo Contreras MD [facility] Appointment Type:Cardiology Follow Up (FT) Future Scheduled Tests Radiology* Echo Transthoracic [facility]02[facility]22 [facility] App[facility]ments Appointment Date:05/12/2022 03:15:00 PM Scheduled Provider:Jairo Contreras MD [facility]iology Follow Up (FT) Future Scheduled Tests Radiology* CV Cardiovascular 04/07/22 [facility] Future Appointments Appointment Date:10/12/2022 01:45:00 PM Scheduled Provider:Jairo Contreras MD [facility] Appointment Type:Cardiology Follow Up (FT) Future Scheduled Tests Laboratory* HgbA1c 09/07/22 * TSH With T4fr Reflex 09/07/22 * CBC w/ Auto Diff 09/07/22 * Comprehensive Metabolic Panel 09/07/22 * Lipid Panel 09/07/22 Radiology* CV Cardiovascular [facility]07[facility] Future Appointments Appointment Date:05/07/2023 02:45:00 PM Scheduled Provider:Jairo Contreras MD [facility] Appointment Type:Cardiology Follow Up (FT) Future Scheduled Tests Laboratory* HgbA1c 09/07/22 * TSH With T4fr Reflex 09/07/22 * CBC w/ Auto Diff 09/07/22 * Comprehensive Metabolic Panel 09/07/22 * Lipid Panel 09/07/22 Radiology* CV Cardiovascular 04/07/22 [facility] Future Appointments Appointment Date:01/11/2024 10:30:00 AM Scheduled Provider:Michelet Velázquez PA-C [facility] Type:[facility] ([facility]) [facility] Future Appointments Appointment Date:03/22/2023 09:00:00 AM Scheduled Provider: [facility] Type:CV Heart Cath (FT) Appointment Date:05/07/2023 02:45:00 PM Scheduled Provider:Jairo Contreras MD [facility] [place] Appointment Type:Cardiology Follow Up (FT) Future Scheduled Tests Laboratory* HgbA1c 09/07/22 * TSH With T4fr Reflex 09/07/22 * CBC w/ Auto Diff 09/07/22 * Comprehensive Metabolic Panel 09/07/22 * Lipid Panel 09/07/22 Radiology* CV Cardiovascular 03/22/23 * CV Cardiovascular 04/07/22 [facility] Other Evaluation note* Diagnosis Onset Date Resolution Status Essential (primary) hypertension acute Fatigue acute High cholesterol acute Left knee pain acute [facility] Work Phone: Evaluation note* Diagnosis Onset Date Resolution Status Abdominal bloating acute Essential (primary) hypertension acute Fatigue acute High cholesterol acute Left knee pain acute TIMMY (obstructive sleep apnea) acute [facility] Work Phone: evaluation note* Diagnosis Onset Date Resolution Status Abdominal bloating acute Essential (primary) hypertension acute Fatigue acute High cholesterol acute Left knee pain acute TIMMY (obstructive sleep apnea) acute Chronic low back pain acute Lumbar radiculopathy acute Left knee pain acute [facility] Work Phone: Evaluation note* Diagnosis Onset Date Resolution Status Coronary artery disease with angina pectoris acute Left knee pain acute Contact with and (suspected) exposure to covid-19 noneactive Sore throat noneactive [facility] Work Phone: History general Narrative - Reported* Type Description Date Medical History hypertension Medical History CAROTID ARETERY STENOSIS Medical History HX OF TIA Medical History LUIS EDUARDO CARDIA Surgical History CHOLECYSTECTOMY Surgical History C SECTION Surgical History TUBAL LIGATION Surgical History HYSTERECTOMY Surgical History BSO Hospitalization History PT HAD TIA JAN 2016 [facility] Other History of Present illness Narrative* The patient states she has been generally stable since the last visit. Comorbid Illnesses: a stroke, hypertension and hyperlipidemia. * Symptoms: stable chest pain at rest, stable exertional chest pain, denies dyspnea, stable fatigue, stable exercise intolerance, stable palpitations, stable edema, denies orthopnea and stable dizziness. * Her symptoms do not limit her activities. * Disease Monitoring: The patient has had a weight gain. * Medications: the patient is adherent with her medication regimen. She denies medication side effects. [facility] [address] DO Work Phone: Hospital course Narrative No data available for this section [facility] No data available for this section [facility] No data available for this section [facility] Summary Purpose Family History Unknown Family Member Name Dates Details Family history of congestive heart failure: Brother(V17.49, Z82.49) Status:Active Family history of diabetes m ellitus: Mother(V18.0, Z83.3) Status:Active Family history of hypertensi on: Father(V17.49, Z82.49) Status:Active Family history of myocardial infarction: Father, Brother(V17.3, Z82.49) Status:Active Unknown Family Member Name Dates Details Family history of myocardial infarction: Father, Brother(V17.3, Z82.49) Status:Active Family history of hypertensi on: Father(V17.49, Z82.49) Status:Active Family history of diabetes m ellitus: Mother(V18.0, Z83.3) Status:Active Family history of congestive heart failure: Brother(V17.49, Z82.49) Status:Active Unknown Family Member Name Dates Details Family history of congestive heart failure: Brother(V17.49, Z82.49) Status:Active Family history of diabetes m ellitus: Mother(V18.0, Z83.3) Status:Active Family history of hypertensi on: Father(V17.49, Z82.49) Status:Active Family history of myocardial infarction: Father, Brother(V17.3, Z82.49) Status:Active Unknown Family Member Name Dates Details Family history of congestive heart failure: Brother(V17.49, Z82.49) Status:Active Family history of diabetes m ellitus: Mother(V18.0, Z83.3) Status:Active Family history of hypertensi on: Father(V17.49, Z82.49) Status:Active Family history of myocardial infarction: Father, Brother(V17.3, Z82.49) Status:Active Unknown Family Member Name Dates Details Family history of myocardial infarction: Father, Brother(V17.3, Z82.49) Status:Active Family history of hypertensi on: Father(V17.49, Z82.49) Status:Active Family history of diabetes m ellitus: Mother(V18.0, Z83.3) Status:Active Family history of congestive heart failure: Brother(V17.49, Z82.49) Status:Active Relationship Condition Age at Onset Recorded Date/T brent Not Specified Diabetes mellitus Unknown father Myocardial infarction Unknown Hypertension Unknown brother Myocardial infarction Unknown brother Hypertension Unknown brother Diabetes mellitus Unknown Heart disease Unknown father Heart disease Unknown Unknown Not Specified Unknown Diabetes mellitus Unknown Relationship Condition Age at Onset Recorded Date/T brent mother Diabetes mellitus Unknown father Myocardial infarction Unknown Hypertension Unknown brother Myocardial infarction Unknown brother Hypertension Unknown brother Diabetes mellitus Unknown Heart disease Unknown father Heart disease Unknown Unknown mother Unknown Diabetes mellitus Unknown Advance Directives Advance Directive Response Recorded Date/ Time Advance Directives No October 18 2:52pm Advance Directive Response Recorded Date/ Time Advance Directives No October 18 1:52pm Chief Complaint * I am still having chest pain * ALEXA CAREY is being seen for a 6 month follow-up of coronary artery disease, chest pain, dyslipidemia and hypertension. * Patient is ambulatory with steady gait. * Last evaluated in clinic by Dr. German Dec 2020. * Compared to last cardiovascular evaluation, patient reports she continues to have chest pain. Last occurrence 10 days ago - non exertional 'boulder' on chest, + relief with NTG. * Patient denies any hospitalizations or significant changes to interval medical history since last office follow-up. * Patient attends to own ADLs and functional ADLs. * Patient daily activity includes: completed CR in Jan 2021. housework, stairs * Patient ambulate in from parking lot without concerns. * Patient denies change to exercise tolerance or functional capacity since last evaluation. * BP: at home for most part controlled * Had meds this morning * TIMMY + but does not have a mask, can't tolerate Chief Complaint and Reason for Visit Chief Complaint check up Reason for Visit Essential (primary) hypertension Fatigue High cholesterol Left knee pain Chief Complaint check up CONSULT DR Carlos ROMERO LT KNEE PAIN, WX Reason for Visit Abdominal bloating Essential (primary) hypertension Fatigue High cholesterol Left knee pain TIMMY (obstructive sleep apnea) Chief Complaint check up CONSULT DR Carlos ROMERO LT KNEE PAIN, WX renew their handicap plaque Reason for Visit Abdominal bloating Essential (primary) hypertension Fatigue High cholesterol Left knee pain TIMMY (obstructive sleep apnea) Chronic low back pain Lumbar radiculopathy Left knee pain Chief Complaint renew their handicap plaque Sore throat, fever Reason for Visit Coronary artery dise ase with angina pectoris Left knee pain Contact with and (suspected) exposure to covid-19 Sore throat Chief Complaint Admit Date CC Adult Risk Stratification February 212023 1:27pm 6 month f/u February 29, 2024 8:36am Fever, congestion, sore throat May 13, 2024 9:03am Reason for Visit Admit Date Abdominal bloating February 29, 2024 8:36am Elevated glucose level February 28 8:36am Essential (primary) hypertension Novembe r 2023 8:36am Facial paresthesia February 29, 2024 8:36am Influenza A May 13, 2024 9 :03am Chief Complaint Admit Date CC Adult Risk Stratification February 212023 1:27pm 6 month f/u February 29, 2024 8:36am Fever, congestion, sore throat May 13, 2024 9:03am Medical Concerns May 17, 2024 9:13am Reason for Visit Admit Date Abdominal bloating February 29, 2024 8:36am Elevated glucose level February 28 8:36am Essential (primary) hypertension Novembe r 2023 8:36am Facial paresthesia February 29, 2024 8:36am Acute bacterial tonsillitis May 9:03am Influenza A May 13, 2024 9 :03am Additional Source Comments INFORMATION SOURCE (unrecogn ized section and content) DATE CREATED AUTHOR 09/22/2020 [facility] DATE CREATED AUTHOR AUTHOR'S ORGANIZ ATION 09/27/2020 [facility] DATE CREATED AUTHOR AUTHOR'S ORGANIZ ATION 03/20/2021 [employer] DATE CREATED AUTHOR AUTHOR'S ORGANIZ ATION 05/25/2021 [facility] DATE CREATED AUTHOR AUTHOR'S ORGANIZ ATION 07/11/2022 [facility] DATE CREATED AUTHOR AUTHOR'S ORGANIZ ATION 10/18/2023 [facility] Patient Care team informatio n (unrecognized section and content) Team Status: Active Member Role Status Dates Benson Romero MD Primary Care Provider Active Team Status: Active Member Role Status Dates Benson Rmoero MD Primary Care Provide r, Attending Provider Active Start: February 22, 2024 Team Status: Inactive Member Role Status Dates Benson Romero MD Primary Care Provide r, Attending Provider Active Start: February 29, 2024 End: February 29, 2024 Team Status: Active Member Role Status Dates Benson Romero MD Primary Care Provide r, Attending Provider Active Start: March 14, 2024 Team Status: Inactive Member Role Status Dates Benson Romero MD Primary Care Provider Active Start: May 13, 2024 End: May 13, 2024 Chelsy Palacios APRN Attending Provider Active S tart: May 13, 2024 End: May 13, 2024 Team Status: Inactive Member Role Status Dates Benson Romero MD Primary Care Provide r, Attending Provider Active Start: August 31, 2023 End: August 31, 2023 Team Status: Inactive Member Role Status Dates Benson Romero MD Primary Care Provider Active Start: September 14, 2023 End: September 14, 2023 Domenico Ross DO Attending Provider Active St art: September 14, 2023 End: September 14, 2023 Team Status: Inactive Member Role Status Dates Benson Romero MD Primary Care Provide r, Attending Provider Active Start: October 11, 2023 End: October 11, 2023 Team Status: Inactive Member Role Status Dates Benson Romero MD Primary Care Provider Active Start: December 28, 2023 End: December 28, 2023 Michelle Ross APRN Attending Provider Active Start: December 28, 2023 End: December 28, 2023 Team Status: Inactive Member Role Status Dates Benson Romero MD Primary Care Provide r, Attending Provider Active Start: May 17, 2024 End: May 17, 2024 REASON FOR VISIT (unrecogniz ed section and content) Check Uplabschest painrefill Goals (unrecognized section and content) Goals may be documented in a n alternate section FOR RECORDS PERTAINING TO PATIENTS WHO ARE OR HAVE BEEN ENROLLED IN A CHEMICAL DEPENDENCY/SUBSTANCEABUSE PROGRAM, SOME INFORMATION MAY BE OMITTED. This clinical summary was aggregated from multiple sources. Caution should be exercised in using it in the provision of clinical care. This summary normalizes information from multiple sources, and as a consequence, information in this document may materially change the coding, format and clinical context of patient data. In addition, data may be omitted in some cases. CLINICAL DECISIONS SHOULD BE BASED ON THE PRIMARY CLINICAL RECORDS. [employer] provides no warranty or guarantee of the accuracy or completeness of information in this document.
--- NOTE | 2024-12-08 12:03 | PC.NURSE ---
broke tooth 75% a week or so ago. Today saw dentist and they extracted it, she is on plavix and ASA and it hasn't stopped bleeding. Pt holding emesis bag with clots of blood in it. Pt given a rolled 4x4 to bite down and put pressure on the area. This was done in [place] by Dr. Kearney at the [facility]. Pain rating 4/10. Hasn't taken BP medication today.
[2024-12-08] MEDS: LIDOCAINE HCL 1%-EPINEPHRINE 1:100,000 20 ML MDV 10 ML INJ (12:37)
[2024-12-08] MEDS: TRANEXAMIC ACID 1,000 MG/10 ML AMPUL 1000 MG TOPICAL (12:37)
[2024-12-08] MEDS: HYDROCODONE/ACET 5-325 MG TABLET 1 TAB PO (13:05)
[2024-12-08] MEDS: CLONIDINE HCL 0.1 MG TABLET 0.2 MG PO (13:42)
[2024-12-08] MEDS: SILVER NITRATE APPLICATOR STICK 1 APPLIC TOPICAL (13:58)
[2024-12-08] MEDS: SURGIFOAM GEL SPONGE SIZE 100 2 EACH TOPICAL (13:59)
--- NOTE | 2024-12-08 14:06 | ED.GENADUL1 ---
HPI HPI - General Adult General Chief complaint: Dental/Oral Stated complaint: MOUTH BLEEDING Time Seen by Provider: 12/08/24 12:03 Source: patient Mode of arrival: walk-in History of Present Illness HPI narrative: Patient is a 54-year-old female presenting to the emergency department for evaluation of tooth bleeding. Patient states that she had her tooth pulled earlier today. Since then, she has had persistent bleeding from the gums/tooth socket. She states that she was trying to get back in with her dentist, however they are busy and cannot get her back in the office to be seen. Other than bleeding from the gums, she denies any other complaints. She denies any chest pain or shortness of breath. She denies any lightheadedness or dizziness. She is on dual antiplatelet therapy for previous MIs. Related Data Home Medications ?Medication ?Instructions ?Recorded ?Confirmed amitriptyline 75 mg tablet 75 mg PO DAILY 12/08/24 12/08/24 aspirin 81 mg tablet,delayed 81 mg PO DAILY 12/08/24 12/08/24 release atenolol 50 mg tablet 50 mg PO Q24H 12/08/24 12/08/24 atorvastatin 40 mg tablet 40 mg PO DAILY 12/08/24 12/08/24 citalopram 40 mg tablet 40 mg PO DAILY 12/08/24 12/08/24 clonidine HCl 0.2 mg tablet 0.2 mg PO Q12H 12/08/24 12/08/24 clopidogrel 75 mg tablet 75 mg PO DAILY 12/08/24 12/08/24 Allergies Allergy/AdvReac Type Severity Reaction Status Date / Time lisinopril AdvReac Mild Cough Verified 12/08/24 11:57 Opioid HPI Opioid Management Most Recent Opioid Data: Last Pain Scale 4 Today, 11:51 Review of Systems ROS Status of ROS 10 or more systems reviewed and unremarkable except as noted in history and below [facility] Medical History (Updated 12/08/24 @ 13:59 by Sylvester Gallagher DO) Myocardial infarction ?I21.9 - Acute myocardial infarction, unspecified (ICD-10) Hypertension ?I10 - Essential (primary) hypertension (ICD-10) Hypertens NOS-del w/ complication ?O16.5 - Unspecified maternal hypertension, complicating the puerperium (ICD-10) Hypertension affecting ?O16.9 - Unspecified maternal hypertension, unspecified trimester (ICD-10) Social History Smoking status: Never smoker Exam Narrative Exam Narrative: CONSTITUTIONAL: Well-appearing, answering questions and following commands appropriately SKIN: Was warm and dry. EYES: Sclerae white. No conjunctival pallor. EARS, NOSE, THROAT: Tooth #5 is surgically removed. From the surgical site, there is mild oozing bleeding. No pulsatile bleeding. She is protecting her airway and spitting up excess blood into a basin. She speaks with a normal voice. No trismus. No facial or neck swelling. RESPIRATORY: Clear to auscultation bilaterally, no wheezes, crackles, or stridor, no use of accessory muscles CARDIOVASCULAR: Normal rate and regular rhythm. There is no S3, S4, murmur, rub. GASTROINTESTINAL: Abdomen is nondistended. MUSCULOSKELETAL: No peripheral edema. NEUROLOGIC: Patient is awake and alert. Facies were symmetrical. Constitutional Vital Signs, click to edit/add: Last Vital Signs Temp 99.3 F 12/08/24 11:51 Pulse 72 12/08/24 11:51 Resp 20 12/08/24 11:51 BP 213/106 H 12/08/24 11:51 Pulse Ox 97 12/08/24 11:51 Course Vital Signs Vital signs: Vital Signs Temperature 99.3 F 12/08/24 11:51 Pulse Rate 72 12/08/24 11:51 Respiratory Rate 20 12/08/24 11:51 Blood Pressure 213/106 H 12/08/24 11:51 Pulse Oximetry 97 12/08/24 11:51 Temperature 99.3 F 12/08/24 11:51 Pulse Rate 72 12/08/24 11:51 Respiratory Rate 20 12/08/24 11:51 Blood Pressure 213/106 H 12/08/24 11:51 Pulse Oximetry 97 12/08/24 11:51 Medical Decision Making [facility] Narrative Medical decision making narrative: Patient is a 54-year-old female s/p tooth #5 dental extraction earlier today at her dentist office presenting to the emergency department for persistent gum bleeding for the last few hours. She is on dual antiplatelet therapy for previous DC. Her vital signs on arrival were significant for hypertension, though she did not take her antihypertensives today. She was given her home dose of clonidine 0.2 mg orally. She is otherwise afebrile and hemodynamically stable. Other than oozing bleeding from the dental extraction site, there are no other physical exam findings. She is protecting her airway adequately, no concern for airway compromise. In order to stop the bleeding, I had the patient bite down onto a gauze for 20 minutes. On reevaluation, she was still having persistent bleeding. I then soaked the gauze in TXA and lidocaine with epinephrine, and injected 3 cc of lidocaine with epinephrine into the bleeding wound. The bleeding initially improved, but then recurred. Next, I used silver nitrate to cauterize a small area of bleeding and packed the area with Gelfoam and gauze. After approximately 30 minutes while in the ED, this achieved hemostasis. I do believe the patient stable for discharge. She was instructed follow-up with her dentist for further care. She was struck to return to the emergency department should her bleeding recur and worsen. She was sent home with more Gelfoam and gauze in order to attempt direct pressure at home. She remains hemodynamically stable, I have low concern for significant blood loss. Patient understands and agrees the plan. FINAL IMPRESSION: 1. Acute gingival bleeding s/p dental extraction of tooth #5 DISPOSITION: Discharged home CONDITION: Fair Discharge Plan Discharge Chief Complaint: Dental/Oral Clinical Impression: Surgical wound hemorrhage after dental procedure Patient Disposition: Home, Self-Care Time of Disposition Decision: 13:58 Condition: Fair Mode of Transportation: Private Vehicle Prescriptions / Home Meds: No Action amitriptyline 75 mg tablet 75 mg PO DAILY aspirin 81 mg tablet,delayed release (DR/EC) 81 mg PO DAILY atenolol 50 mg tablet 50 mg PO Q24H atorvastatin 40 mg tablet 40 mg PO DAILY citalopram 40 mg tablet 40 mg PO DAILY clopidogrel 75 mg tablet 75 mg PO DAILY clonidine HCl 0.2 mg tablet 0.2 mg PO Q12H Print Language: Guatemalan Instructions: Dental Laceration (ED) Referrals: Analilia Young MD [Primary Care Provider, Family Practice] - 1 week
[2024-12-08 14:10] VITALS: BP 170/90
== END 2024-12-08 14:20 | disposition home or self-care (01) ==
PROVIDERS: Emergency Provider Student in an Organized Health Care Education/Training Program; PCP Family Medicine
DX: K91.840 Postprocedural hemorrhage of a digestive system organ or structure following a digestive system procedure (principal); I25.2 Old myocardial infarction; Z79.02 Long term (current) use of antithrombotics/antiplatelets; I10 Essential (primary) hypertension; Z79.899 Other long term (current) drug therapy
CPT/HCPCS: 99283

== ENCOUNTER 2025-01-10 09:35 | Outpatient (OUT) | payer MEDICARE, MEDICAID, SELFPAY ==
--- OUTSIDE RECORDS SUMMARY | 2025-01-10 09:52 | XMS_ITS | CCD ---
Author Organization [facility] Care Team Providers Care Tag Marker Name Role Phone DARIUSZ KEEN Primary Care Unavailable UNKNOWN, PROVIDER Attending Unavailable UNKNOWN, PROVIDER Admitting Unavailable KEEN, DARIUSZ Referring Unavailable KEEN, DARIUSZ Referring Unavailable KEEN, DARIUSZ Primary Care Unavailable ERIN HILARIO Attending Unavailable GURPREET PASTOR Admitting Unavailable [place] Procedure Practitioner Unavailab ESA Cosme Surgeon Unavailable [place] Procedure Practitioner Unavailab YOCASTA Phillip Surgeon Unavailable Dariusz Keen Unavailable Unavailable Unavailable DRAIUSZ KEEN Primary Care Physician KEEN ., DR DARIUSZ West Attending Unavailable [...] Primary Care Unavailable ROBI ELDER Consulting Unavailable DR ANIKA WHALEY Attending Unavailable KEEN ., DR DARIUSZ West Primary Care Unavailable DR ANIKA WHALEY Consulting Unavailable DR ANIKA WHALEY Admitting Unavailable [...] Bennett Unavailable BENSON ROMERO Primary Care Physician [phone] Michelet Velázquez Attending Unavailable Gerry Sotelo Attending Unavailable Allergies Allergy Classification Reported Allergen(s) Allergy Type Date of Onset Reaction(s) Facility Amino Acids (1 source) Amino Acids Drug Allergy 0 [facility] Repository (17 sources) Lisinopril; Translations: [Lisinopril TABS] Drug Allergy Cough, couging [facility] (1 source) Adhesive bandage Drug allergy (disorder) [facility] Repository (2 sources) Amino Acids; Translations: [lisinopril] Drug Allergy [facility] Repository (6 sources) hydrALAZINE; Translations: [hydralazine] Drug Allergy Unknown (qualifier value) [facility] (6 sources) topiramate; Translations: [topiramate] Drug Allergy Unknown (qualifier value) [facility] Medications Current Medications Medication Drug Class(es) Dates [...] tablet,delayed release (DR/EC) Active 0 .ROUTE .COMPLEX 90 May 07, 2024 7:23am TAKE 1 TABLET [...] BID, # 180 tab(s), Refills(s) 3, Pharmacy: [facility]/pharmacy #[id number], 164, cm, 09/24/22 12:51:00 EDT, Height/Length Dosing, 91.4, kg, 09/24/22 12:51:00 EDT, Weight Dosing Start Date: 09/24/22 Status: Ordered Start: 04-02-2022 take 1 tablet by mk th twice daily cloNIDine 0.1 mg tab 0.1 mg = 1 tab(s), Oral, BID, # 60 tab(s), Refills(s) 3, Pharmacy: [facility]/pharmacy #[id number], 164, cm, 04/02/22 13:47:00 EST, Height/Length Dosing, 94.2, kg, 04/02/22 13:47:00 EST, Weight Dosing Start Date: 04/02/22 Status: Ordered Start: 12-27-2020 End: 02-29-2024 take 1 tablet by mouth twice daily Clonidine Hcl 0.2 mg tablet Active 0.2 MG PO Twice daily 180 February 29, 2024 9:42am take 2 tablets by mo [facility] at bedtime cloNIDine HCl - 0.2 MG Oral Tablet TAKE 2 TABLETS AT BEDTIME. Quantity: 0 Refills: 0 Ordered: 19-Mar-2021 DO Active DilTIAZem (Eqv-Dilacor XR) 120 mg/24 hours oral capsule, extended release (2 sources) Start: 09-07-2022 DilTIAZem (Eqv-Dilacor XR) 120 mg/24 hours oral capsule, extended release 120 mg = 1 cap(s), Oral, Daily, # 90 cap(s), Refills(s) 1, [id number], 160, cm, 09/07/22 18:32:00 EDT, Height/Length [...] Daily, # 30 tab(s), Refills(s) 2, Pharmacy: [facility]/pharmacy #[id number], 164, cm, 10/11/23 13:23:00 EDT, Height/Length [...] DAY, # 180 tab(s), Refills(s) 1, Pharmacy: [id number], 164, cm, 03/22/23 7:23:00 EST, Height/Length Dosing, 92.3, kg, 03/22/23 7:23:00 EST, Weight Dosing Start Date: 07/19/23 Status: Ordered Start: 02-16-2023 take 1 tablet by km th twice daily ranolazine 500 mg oral ER Tab See Instructions, TAKE 1 TABLET BY MOUTH TWICE A DAY, # 180 tab(s), Refills(s) 1, Pharmacy: [facility] STORE [id number], 164, cm, 11/12/22 13:53:00 EDT, Height/Length Dosing, 92.3, kg, 11/12/22 13:53:00 EDT, Weight Dosing Start Date: 02/16/23 Status: Ordered Start: 09-07-2022 take 1 tablet by mk th twice daily ranolazine 500 mg oral ER Tab 500 mg = 1 tab(s), Oral, BID, # 180 tab(s), Refills(s) 1, Pharmacy: [facility]/pharmacy #[id number], 160, cm, 09/07/22 18:32:00 EDT, Height/Length [...] Daily, # 60 tab(s), Refills(s) 3, Pharmacy: [facility]/pharmacy #[id number], 164, cm, 09/24/22 12:51:00 EDT, Height/Length [...] (4 sources) take 1 capsule by mo [facility] once daily Vitamin D-3 1000 UNIT 1 [...] Daily, # 90 tab(s), Refills(s) 3, Pharmacy: [facility]/pharmacy #[id number], 164, cm, 03/19/23 13:02:00 EST, Height/Length [...] BID, # 180 tab(s), Refills(s) 3, Pharmacy: [facility]/pharmacy #[id number], 164, cm, 05/12/22 15:46:00 EST, Height/Length [...] DAY, # 90 tab(s), Refills(s) 0, Pharmacy: [id number], 164, cm, 03/22/23 7:23:00 EST, Height/Length Dosing, 92.3, kg, 03/22/23 7:23:00 EST, Weight Dosing Start Date: 07/19/23 Status: Ordered Start: 09-07-2022 take 1 tablet by mk th once daily citalopram 40 mg Tab See Instructions, TAKE 1 TABLET BY MOUTH EVERY DAY, # 90 tab(s), Refills(s) 0, Pharmacy: [id number], 164, cm, 11/12/22 13:53:00 EDT, Height/Length Dosing, [...] 29, 2024 8:47am take 2 tablets by mo uth every eight hours Cyproheptadine HCl - 4 [...] ) Start: 03-19-2021 take 1 capsule by [facility] once daily Dilt-XR 120 MG Oral Capsule Extended Release 24 Hour TAKE 1 CAPSULE BY MOUTH EVERY DAY Quantity: 90 Refills: 0 Ordered: 10-Apr-2021 Navdeep German DO Start : 10-Apr-2021 Active [facility]-four hours dilTIAZem HCl 120 MG 1 tablet once a day Active famotidine 40 mg oral tablet (20 sources) Histamine-2 Receptor Antagonist Start: 10-21-2023 End: 04-18-2024 take 1 tablet by mouth once daily at bedtime Famotidine 40 mg tablet Discontinued 0 .ROUTE .COMPLEX 90 January 17, 2024 9:34pm April 18, 2024 [...] cath, # 2 tab(s), Refills(s) 0, Pharmacy: 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; Translations: [HOSPITAL CLINIC ASSISTANT CURRENT USE OF ASPIRIN] Onset: 10-10-2021 Episodic Other aftercare (1 source) [facility] (current) use of oral hypoglycemic drugs; Translations: [SHELTER USE ORAL HYPOGLYCEMIC DX] Onset: 07-31-2021 Episodic [...] Test Name Value Interpretation Reference Range Facility ED Clinical Summaryon 2024 ED Clinical Summary ED Clinical Summary [place] [id number] ED Clinical Summary Person Information Name: ALEXA CAREY/[facility] Age: 54 Years : 1970 Sex: Female Language: Frisian PCP: BENSON ROMERO MD Marital Status: Single Visit Id: Visit Reason: Dental pain; Mouth pain; TOOTH EXTRACTION ON 12/08 - STILL BLEEDING Speciality: Acuity: 4 Enc Type: Emergency Med Service: Emergency Arrival: 12/16/2024 11:11:44 Discharge: 12/16/2024 12:20:32 LOS: 000 01:09 Checkin: 12/16/2024 11:11:44 Checkout: 12/16/2024 12:20:32 Dispo Type: Home (Routine DC) EVENTS: Event Name Event Status Request Date/Time Start Date/Time Complete Date/Time Arrive Complete 12/16/2024 11:11:44 12/16/2024 11:11:44 12/16/2024 11:11:44 Document Home Meds Request 12/16/2024 11:11:44 Triage Complete 12/16/2024 11:11:44 12/16/2024 11:18:37 12/16/2024 11:18:37 Bed Assign Complete 12/16/2024 11:12:20 12/16/2024 11:12:20 12/16/2024 11:12:20 Dr Exam Complete 12/16/2024 11:12:20 12/16/2024 11:14:01 12/16/2024 11:14:01 RN Exam Complete 12/16/2024 11:12:20 12/16/2024 11:38:12 12/16/2024 11:38:12 Registration Complete 12/16/2024 11:14:01 12/16/2024 11:17:25 12/16/2024 11:17:25 Dr Exam Complete 12/16/2024 11:15:00 12/16/2024 11:15:00 12/16/2024 11:15:00 Reg Complete Request 12/16/2024 11:17:25 Reg Bed Request Complete 12/16/2024 11:17:25 12/16/2024 11:17:25 12/16/2024 11:17:25 Meds Admin Complete 12/16/2024 11:24:21 12/16/2024 11:31:28 Discharge Complete 12/16/2024 12:18:05 12/16/2024 12:20:41 12/16/2024 12:20:41 Transfer Complete 12/16/2024 12:20:41 12/16/2024 12:20:41 12/16/2024 12:20:41 ADDRESS: [address] [place] [address] [id number] PHYS DOC NOTES: MEDICAL INFORMATION: Prescriptions Given: Medications to Continue with No Changes Other Medications amlodipine (amLODIPine 5 mg Tab) 1 Tablets By Mouth every day. Refills: 3. aspirin (aspirin 81 mg Oral EC Tab) 1 Tablets By Mouth every day. atenolol (atenolol 50 mg Tab) 1 Tablets By Mouth 2 times a day. Refills: 3. atorvastatin (atorvastatin 40 mg Tab) TAKE 1 TABLET BY MOUTH EVERY DAY. Refills: 3. bumetanide (bumetanide 1 mg Tab) TAKE 1 TABLET BY MOUTH EVERY DAY. Refills: 3. citalopram (citalopram 40 mg Tab) [...] BY MOUTH EVERYDAY AT BEDTIME. Refills: 0. hydrochlorothiazide (hydrochlorothiazide 12.5 mg Tab) 1 Tablets By Mouth every day. Refills: 5. isosorbide mononitrate (isosorbide mononitrate 60 mg ER [...] 3. valsartan (valsartan 320 mg Tab) Oral. PATIENT EDUCATION INFORMATION: Instructions: Dental Extraction, Care After Follow up: With: Address: When: BENSON ROMERO [address] [place] [address] [facility] ([place] In 3 days 12/19/2024 Comments: Follow-up with your dentist DIAGNOSIS: Bleeding post tooth extraction; Post surgical complication Normal [facility] ED Note-Physicianon 12-17-19 ED Note-Physician ED Note-Physician Basic Information Time Seen: Michael Espino PA-C 12/16/2024 11:14 Chief Complaint Pt states tooth extraction on 12/08. Pt states that she was at the [facility] for cauterization after the extraction d/t bleeding. Pt states site started bleeding yesterday, continued this morning. Pt states she takes 2 anticoags. History of Present Illness 54-year-old female comes to the ED for evaluation of dental bleeding. She had a tooth extracted on 12/08. She did develop some post extraction bleeding was seen in outside ED. Since that time she been doing well until last night when she had a reoccurrence of bleeding. She states she contacted her dentist who recommended ED evaluation for bleeding control. She does take aspirin and Plavix with a history of CAD. No fever, chills, nausea or vomiting. No pain or discomfort. No weakness dizziness lightheadedness. Review of Systems A 10 point review of systems is negative except as noted above. Medical and Surgical History: Reviewed and noted Social history: Lives at home Tobacco: Denies Physical Exam Vitals & Measurements T: 36.7 ???C(Tympanic) HR: 69(Peripheral) RR: 18 BP: 204/92 SpO2: 98% HT: 162.56 cm WT: 92.6 kg BMI: 35.04 Nurses notes and vital signs reviewed and patient is not hypoxic. General: The patient appears well, no acute distress. Skin: Warm, dry. Head: Atraumatic. Neck: No soft tissue swelling. Eye: Normal conjunctiva. Ears, Nose, Mouth, and Throat: Status post dental extraction of the #6 tooth. There is a small amount of bleeding within a dental cavity. No gingival swelling. No tenderness. No purulence. Cardiovascular: Strong distal pulses. Chest wall: Respiratory: Respirations are nonlabored. Back: Normal range of motion. Musculoskeletal: Normal ROM with no gross deformity. Gastrointestinal: Urological: Neurological: Awake and alert. No focal deficits. Follows commands. Psychiatric: Cooperative. Medical Decision Making Patient presents with a small amount of active bleeding after recent dental extraction. The area was packed with cottonball and TXA solution. After 20 minutes she was evaluated and she has had complete hemostasis. Discharged home with dentistry follow-up. Patient was encouraged to return to the ED if symptoms worsen or change. Assessment/Plan Bleeding post tooth extraction (K91.840: Postprocedural hemorrhage of a digestive system organ or structure following a digestive system procedure) Post surgical complication (T81.9XXA: Unspecified complication of procedure, initial encounter) Orders: tranexamic acid, 1,000 mg = 10 mL, Injection, Topical, Once, Stop date 12/16/24 11:24:00 EDT, STAT, Start date 12/16/24 11:24:00 EDT, 12/16/24 11:24:00 EDT Medications Administered Given tranexamic acid 100 mg/mL intravenous solution, 1000 mg, Topical Disposition Plan Patient Discharge Condition Disposition: Discharged home Condition: Improved and stable Counseled: Patient and/or family were counseled to workup, results, treatment plan and follow-up recommendations Discharge Prescription List Prescriptions No active prescription medications Follow-up With When Contact Information BENSON ROMERO In 3 days 12/19/[address] [place], [place] [id number] Business (1) Additional Instructions: Follow-up with your dentist Patient Education Dental Extraction, Care After Attestation I performed a substantive part of the MDM during the patient???s E/M visit. I personally made or approved the documented management plan and acknowledge its risk of complications. (Independent Interpretation) My (EKG/X-Ray/US/CT) interpretation as above. (Discussion) Management/test interpretation discussed with APC. This report was transcribed using voice recognition software. Every effort was made to ensure accuracy, however, inadvertently computerized rn transfer mistakes may be present. Appropriate healthcare PPE was used in evaluating this patient. Problem List/Past Medical History Ongoing Anemia Anxiety ASCVD (arteriosclerotic cardiovascular disease) CHF (congestive heart failure) Fatigue HTN (hypertension) Hypercholesterolemia Hypertension Mitral valve sclerosis Osteoarthritis of both knees Palpitations PFO (patent foramen ovale) Pityriasis versicolor TIA (transient ischemic attack) Unstable angina Vitamin D deficiency Historical No qualifying data Procedure/Surgical History Cardiac catheterization, left heart (03/22/2023), Cardiac catheterization, left heart (04/08/2022), PCI (percutaneous coronary intervention) of left anterior descending branch of coronary artery (04/08/2022), Appendectomy, section, Colposcope, Gall bladder, Hysterectomy, Oophorectomy. Medications Inpatient No active inpatient medications Home amLODIPine 5 mg Tab, 5 mg= 1 tab(s), Oral, Daily, 3 refills, Not taking aspirin 81 mg Oral EC Tab, 81 mg= 1 tab(s), Oral, Daily atenolol 50 (more content not included)... Normal [facility] Comment on above: Result Comment: Elec tronically Signed By: Michael Espino PA-C\.br\Date and Time Signed: 12/16/24 12:31 EDT\.br\Electronically Co-Signed By: Gerry Sotelo MD\.br\Date and Time Co-Signed: 12/16/24 20:19 EDT ED Patient Summaryon 025 ED Patient Summary ED Patient Summary [place] [id number] Patient Discharge Instructions Person Information Name: ALEXA CAREY Age: 54 Years Arrival Date: 12/16/2024 11:11:44 Discharge Diagnosis: Bleeding post tooth extraction; Post surgical complication Primary Care Physician: BENSON ROMERO MD Provider Information Primary Provider: Gerry Sotelo MD Advanced Master In Chancery:Michael Espino PA-C The exam and treatment you received in the Emergency Department were for an urgent problem and are not intended as complete care. It is important that you follow up with a doctor, nurse practitioner, or physician???s social and human services assistant for ongoing care. If your symptoms become worse or you do not improve as expected and you are unable to reach your usual health care provider, you should return to the Emergency Department. We are available 24 hours a day. ALEXA CAREY has been given the following list of patient education materials, prescriptions and follow-up instructions: Follow-up Instructions: With: Address: When: BENSON ROMERO [address] [place], [place] [id number] Business (1) In 3 days 12/19/2024 Comments: Follow-up with your dentist In the event that this physician does not participate in your insurance network, please consult with your insurance company to find a nearby participating provider. Patient Education Materials: Dental Extraction, Care After A MESSAGE TO ALL PATIENTS REGARDING OPIOIDS PRESCRIPTION OPIOIDS: WHAT YOU NEED TO KNOW Prescription opioids can be used to help relieve qdztqftg-id-yilpzt pain and are often prescribed following a surgery or injury, or for certain health conditions. These medications can be an important part of the treatment but also come with serious risks. It is important to work with your healthcare provider to make sure you are getting the safest, most effective care. WHAT ARE THE RISKS AND SIDE EFFECTS OF OPIOID USE? Prescription opioids carry serious risks of addiction and overdose, especially with prolonged use. An opioid overdose, often marked by slowed breathing, can cause sudden . The use of prescription opioids can have a number of side effects as well, even when taken as directed: ??? Tolerance???meaning you might need to take more of the medication for the same pain relief ??? Physical dependence???meaning you have symptoms of withdrawal when a medication is stopped ??? Increased sensitivity to pain ??? Constipation ??? Nausea, vomiting, and dry mouth ??? Sleepiness and dizziness ??? Confusion ??? Depression ??? Low levels of testosterone that can result in lower sex drive, energy, and strength ??? Itching and sweating RISKS ARE GREATER WITH: ??? History of drug misuse, substance use disorder, or overdose ??? Mental health conditions (such as depression or anxiety) ??? Sleep apnea ??? Older age (65 years and older) ??? Avoid alcohol while taking prescription opioids. Also, unless specifically advised by your health care provider, medications to avoid include: ??? Benzodiazepines (such as Xanax or Valium) ??? Muscle relaxants (such as Soma or Flexeril) ??? Hypnotics (such as Ambien or Lunesta) ??? Other prescription opioids KNOW YOUR OPTIONS Talk to your health care provider about ways to manage your pain that don???t involve prescription opioids. Some of these options may actually work better and have fewer risks and side effects. Options may include: ??? Pain relievers such as acetaminophen, ibuprofen, and naproxen ??? Some medication that are also used for depression or seizures ??? Physical therapy and exercise ??? Cognitive behavioral therapy, a psychological, goal-directed approach, in which patients learn how to modify physical, behavioral, and emotional triggers of pain and stress. IF YOU ARE PRESCRIBED OPIOIDS FOR PAIN: ??? Never take opioids in greater amounts or more often than prescribed. ??? Follow up with your primary health care provider. o Work together to create a plan on how to manage your pain. o Talk about ways to help manage your pain that don???t involve prescription opioids. o Talk about any and all concerns and side effects. ??? Help prevent misuse and abuse o Never sell or share prescription opioids. o Never use another person???s prescription opioids. ??? Store prescription opioids in a secure place and out of reach of others (this may include visitors, children, friends, and family). ??? Safely dispose of unused prescription opioids: Find your community drug take-back program or your pharmacy mail-back program, or flush them down the toilet, following guidance from the Food and Drug Administration (www.fda.gov/Drugs/Res ourcesForYou). ??? Visit www.cdc.gov/drugoverdo se to learn about the risks of opioids abuse and overdose. ? (more content not included)... Normal [facility] Influenza virus A and B and SARS-CoV-2 (COVID-19) RNA panel - Respiratory system specon 05-13-2024 Influenza virus A and B RNA and SARS-CoV-2 (COVID-19) N gene panel RAJINDER+probe (Resp) Influenza virus A and B and SARS-CoV-2 (COVID-19) RNA panel - Respiratory system spec [facility] - Microbiology an d Antimicrobial susceptibilityon 05-13-2024 SARS-CoV-2 (COVID-19) RNA RAJINDER+probe Ql (Unsp spec) Negative [facility] No Panel InformationOrdered By: Chelsy Palacios on 05-13-2024 Quick Strep (POC) [facility] No Panel Informationon 05-13 POC Influenza B (RAJINDER) Negative [facility] Basophils Auto (Bld) [#/Vol] on 03-14-2024 Basophils (Bld) [#/Vol] Automated basophil count 0.0-0.1 [facility] Basophils/100 WBC Auto (Bld) on 03-14-2024 Basophils/100 WBC (Bld) Automated basophil % 0.2-2.0 [facility] Eosinophils/100 WBC Auto (Bl d)on 03-14-2024 Eosinophils/100 WBC (Bld) Automated eosinophil % 0.9-7.0 [facility] Erythrocyte distribution wid th Auto (RBC) [Ratio]on 03-14-2024 Erythrocyte distribution width (RBC) [Ratio] Erythrocyte distribution width [Ratio] by Automated count 11.0-15.0 [facility] Estimated glomerular filtrat ion rate (GFR) non- Americanon 03-14-2024 GFR/1.73 sq M.predicted among non-blacks MDRD (S/P/Bld) [Vol rate/Area] Estimated glomerular filtration rate (GFR) non- Low >=60 mL/min/1.73m 2 [facility] Globulin Calc (S) [Mass/Vol] on 03-14-2024 Globulin (S) [Mass/Vol] Serum globulin measurement by calculation (mass/volume) [facility] Glucose mean value [Mass/vol ume] in Blood Estimated from glycated hemoglobinon 03-14-2024 Average glucose Estimated from glycated hemoglobin (Bld) [Mass/Vol] Glucose mean value [Mass/volume] in Blood Estimated from glycated hemoglobin [facility] Hematocrit Auto (Bld) [Volum e fraction]on 03-14-2024 Hematocrit (Bld) [Volume fraction] Hematocrit [Volume Fraction] of Blood by Automated count 36.0-48.0 [facility] Hemoglobin [Mass/volume] in Bloodon 03-14-2024 Hemoglobin (Bld) [Mass/Vol] Hemoglobin [Mass/volume] in Blood 12.0-16.0 [facility] - Chemistry and C hemistry - challengeon 03-14-2024 Albumin [Mass/Vol] 3.8 g/dL 3.4-5.0 [facility] ALP [Catalytic activity/Vol] 136 U/L High 46-116 [facility] ALT [Catalytic activity/Vol] 27 U/L 14-59 [facility] AST [Catalytic activity/Vol] 19 U/L 15-37 [facility] Bilirubin [Mass/Vol] 0.8 mg/dL 0.2-1.0 [facility] Calcium [Mass/Vol] 9.6 mg/dL 8.5-10.1 [facility] Chloride [Moles/Vol] 107 mmol/L 98-107 [facility] CO2 [Moles/Vol] 32.0 mmol/L 21.0-32.0 [facility] Creatinine [Mass/Vol] 1.07 mg/dL High 0.55-1.02 [facility] GFR/1.73 sq M.predicted MDRD (S/P/Bld) [Vol rate/Area] mL/min/{1.73_m2} >=60 mL/min/1.73m 2 [facility] Glucose [Mass/Vol] 129 mg/dL High 74-106 [facility] Potassium [Moles/Vol] 3.4 mmol/L Low 3.5-5.1 [facility] Protein [Mass/Vol] 7.8 g/dL 6.4-8.2 [facility] Sodium [Moles/Vol] 145 mmol/L 136-145 [facility] TSH Qn 2.270 m[IU]/L 0.358-3.740 [facility] Urea nitrogen [Mass/Vol] 10.0 mg/dL 7.0-18.0 [facility] Urea nitrogen/Creatinine [Mass ratio] 9.3 mg/mg [facility] - Hematology and Cell countson 03-14-2024 HbA1c (Bld) [Mass fraction] 6.3 % High 4.5-6.2 [facility] Comment on above: ADA RECOMMENDED LIMI T 4.0 - 6.0ADA THERAPEUTIC TARGET < 7.0ACTION SUGGESTED> 7.0 Immature granulocytes/100 WBC (Bld) 0.2 % 0.0-0.5 [facility] Leukocytes [#/volume] correc olga for nucleated erythrocytes in Blood by Automated counon 03-14-2024 WBC corrected for nucl RBC Auto (Bld) [#/Vol] Leukocytes [#/volume] corrected for nucleated erythrocytes in Blood by Automated coun 4.0-11.0 [facility] Lymphocytes Auto (Bld) [#/Vo l]on 03-14-2024 Lymphocytes (Bld) [#/Vol] Lymphocytes [#/volume] in Blood by Automated count 1.2-3.8 [facility] Lymphocytes/100 WBC Auto (Bl d)on 03-14-2024 Lymphocytes/100 WBC (Bld) Lymphocytes/100 leukocytes in Blood by Automated count 20.5-60.0 [facility] MCH Auto (RBC) [Entitic mass ]on 03-14-2024 MCH (RBC) [Entitic mass] MCH [Entitic mass] by Automated count 26.7-34.0 [facility] MCHC Auto (RBC) [Mass/Vol]on 03-14-2024 MCHC (RBC) [Mass/Vol] MCHC [Mass/volume] by Automated count 29.9-35.2 [facility] MCV Auto (RBC) [Entitic vol] on 03-14-2024 MCV (RBC) [Entitic vol] MCV [Entitic volume] by Automated count 81.0-99.0 [facility] Microalbumin [Mass/volume] i n Urineon 03-14-2024 Albumin DL <= 20 mg/L (U) [Mass/Vol] Microalbumin [Mass/volume] in Urine <=30.0 [facility] Monocytes Auto (Bld) [#/Vol] on 03-14-2024 Monocytes (Bld) [#/Vol] Automated blood monocyte count 0.3-0.8 [facility] Monocytes/100 WBC Auto (Bld) on 03-14-2024 Monocytes/100 WBC (Bld) Automated monocyte % 1.7-12.0 [facility] Neutrophils Auto (Bld) [#/Vo l]on 03-14-2024 Neutrophils (Bld) [#/Vol] Neutrophils [#/volume] in Blood by Automated count 1.4-6.5 [facility] Neutrophils/100 WBC Auto (Bl d)on 03-14-2024 Neutrophils/100 WBC (Bld) Automated neutrophil % 43.0-75.0 [facility] No Panel Informationon 03-14 Eosinophils # (Auto) 0.2 10 3/uL 0.0-0.7 [facility] Immature Granulocyte # (Auto) 0.01 10 3/uL 0.00-0.03 [facility] Urine Random Creatinine 505.77 mg/dL High 20.00-300.00 [facility] Platelet mean volume Auto (B ld) [Entitic vol]on 03-14-2024 Platelet mean volume (Bld) [Entitic vol] Platelet mean volume [Entitic volume] in Blood by Automated count Low 9.5-13.5 [facility] Platelets Auto (Bld) [#/Vol] on 03-14-2024 Platelets (Bld) [#/Vol] Platelets [#/volume] in Blood by Automated count 150-450 [facility] RBC Auto (Bld) [#/Vol]on RBC (Bld) [#/Vol] Erythrocytes [#/volume] in Blood by Automated count 4.20-5.40 [facility] Serum or plasma albumin/glob ulin mass ratioon 03-14-2024 Albumin/Globulin [Mass ratio] Serum or plasma albumin/globulin mass ratio [facility] Serum or plasma anion gap de terminationon 03-14-2024 Anion gap [Moles/Vol] Serum or plasma an ion gap determination [facility] Urine microalbumin/creatinin e mass ratioon 03-14-2024 Albumin/Creatinine DL <= 20 mg/L (U) [Mass ratio] Urine microalbumin/creatinin e mass ratio 0.0-29.9 [facility] Comment on above: NO MICROALBUMINURIA 0-29 MG/GCLINICAL MICROALBUMINURIA 30-300 MG/GMACROALBUMINURIA >300 MG/G No Panel InformationOrdered By: Michelle Ross on 12-28-2023 COVID Antigen (POC) [facility] (POC) [facility] Basophils Auto (Bld) [#/Vol] on 08-31-2023 Basophils (Bld) [#/Vol] 0.0 10 3/uL 0.0-0.1 [facility] Basophils/100 WBC Auto (Bld) on 08-31-2023 Basophils/100 WBC (Bld) 0.6 % 0.2-2.0 [facility] Cholesterol in LDL Calc [Mas s/Vol]on 08-31-2023 Cholesterol in LDL [Mass/Vol] 65.8 mg/dL [facility] Comment on above: <100 mg/dl ICPASEY19 0-129 mg/dl NEAR OR ABOVE [id number] mg/dl BORDERLINE [id number] mg/dl HIGH>190 mg/dl VERY HIGH Cholesterol in VLDL Calc [Ma ss/Vol]on 08-31-2023 Cholesterol in VLDL [Mass/Vol] 26.2 mg/dL [facility] Eosinophils/100 WBC Auto (Bl d)on 08-31-2023 Eosinophils/100 WBC (Bld) 3.5 % 0.9-7.0 [facility] Erythrocyte distribution wid th Auto (RBC) [Ratio]on 08-31-2023 Erythrocyte distribution width (RBC) [Ratio] 13.5 % 11.0-15.0 [facility] Estimated glomerular filtrat ion rate (GFR) non- Americanon 08-31-2023 GFR/1.73 sq M.predicted among non-blacks MDRD (S/P/Bld) [Vol rate/Area] mL/min/{1.73_m2} >=60 [facility] Globulin Calc (S) [Mass/Vol] on 08-31-2023 Globulin (S) [Mass/Vol] 3.7 g/dL [facility] Hematocrit Auto (Bld) [Volum e fraction]on 08-31-2023 Hematocrit (Bld) [Volume fraction] 42.2 % 36.0-48.0 [facility] Hemoglobin [Mass/volume] in Bloodon 08-31-2023 Hemoglobin (Bld) [Mass/Vol] 13.6 g/dL 12.0-16.0 [facility] Laboratory - Chemistry and C hemistry - challengeon 08-31-2023 Albumin [Mass/Vol] 3.4 g/dL 3.4-5.0 [facility] ALP [Catalytic activity/Vol] 120 U/L High 46-116 [facility] ALT [Catalytic activity/Vol] 28 U/L 14-59 [facility] AST [Catalytic activity/Vol] 18 U/L 15-37 [facility] Bilirubin [Mass/Vol] 0.4 mg/dL 0.2-1.0 [facility] Calcium [Mass/Vol] 9.0 mg/dL 8.5-10.1 [facility] Chloride [Moles/Vol] 108 mmol/L High 98-107 [facility] Cholesterol [Mass/Vol] 135 mg/dL <=200 [facility] Cholesterol in HDL [Mass/Vol] 43 mg/dL 40-60 [facility] Comment on above: > or =60 mg/dl - LOW CARDIOVASCULAR RISK<40 mg/dl - HIGH CARDIOVASCULAR RISK CO2 [Moles/Vol] 28.5 mmol/L 21.0-32.0 [facility] Creatinine [Mass/Vol] 0.85 mg/dL 0.55-1.02 [facility] GFR/1.73 sq M.predicted MDRD (S/P/Bld) [Vol rate/Area] mL/min/{1.73_m2} >=60 [facility] Glucose [Mass/Vol] 125 mg/dL High 74-106 [facility] Potassium [Moles/Vol] 3.8 mmol/L 3.5-5.1 [facility] Protein [Mass/Vol] 7.1 g/dL 6.4-8.2 [facility] Sodium [Moles/Vol] 143 mmol/L 136-145 [facility] Triglyceride [Mass/Vol] 131 mg/dL <=150 [facility] TSH Qn 1.947 m[IU]/L 0.358-3.740 [facility] Urea nitrogen [Mass/Vol] 10.0 mg/dL 7.0-18.0 [facility] Urea nitrogen/Creatinine [Mass ratio] 11.8 mg/mg [facility] Laboratory - Hematology and Cell countson 08-31-2023 Immature granulocytes/100 WBC (Bld) 0.2 % 0.0-0.5 [facility] Leukocytes [#/volume] correc olga for nucleated erythrocytes in Blood by Automated counon 08-31-2023 WBC corrected for nucl RBC Auto (Bld) [#/Vol] 5.1 10 3/uL 4.0-11.0 [facility] Lymphocytes Auto (Bld) [#/Vo l]on 08-31-2023 Lymphocytes (Bld) [#/Vol] 1.4 10 3/uL 1.2-3.8 [facility] Lymphocytes/100 WBC Auto (Bl d)on 08-31-2023 Lymphocytes/100 WBC (Bld) 26.3 % 20.5-60.0 [facility] MCH Auto (RBC) [Entitic mass ]on 08-31-2023 MCH (RBC) [Entitic mass] 29.1 pg 26.7-34.0 [facility] MCHC Auto (RBC) [Mass/Vol]on 08-31-2023 MCHC (RBC) [Mass/Vol] 32.2 g/dL 29.9-35.2 [facility] MCV Auto (RBC) [Entitic vol] on 08-31-2023 MCV (RBC) [Entitic vol] 90.2 fL 81.0-99.0 [facility] Monocytes Auto (Bld) [#/Vol] on 08-31-2023 Monocytes (Bld) [#/Vol] 0.5 10 3/uL 0.3-0.8 [facility] Monocytes/100 WBC Auto (Bld) on 08-31-2023 Monocytes/100 WBC (Bld) 9.9 % 1.7-12.0 [facility] Neutrophils Auto (Bld) [#/Vo l]on 08-31-2023 Neutrophils (Bld) [#/Vol] 3.1 10 3/uL 1.4-6.5 [facility] Neutrophils/100 WBC Auto (Bl d)on 08-31-2023 Neutrophils/100 WBC (Bld) 59.5 % 43.0-75.0 [facility] No Panel Informationon 08-30 Eosinophils # (Auto) 0.2 10 3/uL 0.0-0.7 [facility] Immature Granulocyte # (Auto) 0.01 10 3/uL 0.00-0.03 [facility] Platelet mean volume Auto (B ld) [Entitic vol]on 08-31-2023 Platelet mean volume (Bld) [Entitic vol] 9.1 fL Low 9.5-13.5 [facility] Platelets Auto (Bld) [#/Vol] on 08-31-2023 Platelets (Bld) [#/Vol] 270 10 3/uL 150-450 [facility] RBC Auto (Bld) [#/Vol]on RBC (Bld) [#/Vol] 4.68 10 6/uL 4.20-5.40 [facility] Serum or plasma albumin/glob ulin mass ratioon 08-31-2023 Albumin/Globulin [Mass ratio] 0.9 {ratio} [facility] Serum or plasma anion gap de terminationon 08-31-2023 Anion gap [Moles/Vol] 10.3 mmol/L Fi [facility] Serum or plasma total choles terol/high density lipoprotein (HDL) cholesterol mass michele 08-31-2023 Cholesterol.total/Chol esterol in HDL [Mass ratio] 3.1 {ratio} [facility] Comment on above: 3.3 - 4.4 LOW RISK4. 4 - 7.1 AVERAGE RISK7.1 - 11.0 MODERATE RISK>11.0 HIGH RISK XR HAND LT MIN 3Von 04-28-19 XR HAND LT MIN 3V EXAM: XR [...] MARIA L CURTIS Date: 2022-04-28 19:01 Normal [facility] CHEMISTRYOrdered By: SYSTEM SYSTEM on 04-08-2022 Anion gap [Moles/Vol] 9 mmol/L Normal 6 - 16 mEq/L [facility] Calcium [Mass/Vol] 9.2 mg/dL Normal 8.9 - 11. 1 mg/dL [facility] Chloride [Moles/Vol] 105 mmol/L Normal 101 - 1 11 mmol/L [facility] CO2 [Moles/Vol] 28 mmol/L Normal 21 - 31 mmol/L [facility] Creatinine [Mass/Vol] 0.9 mg/dL Normal 0.5 - 1.3 mg/dL [facility] GFR/1.73 sq M.predicted among blacks MDRD (S/P/Bld) [Vol rate/Area] mL/min/1.73 m2 Normal >=59mL/min/1 .73 m2 [facility] S GFR/1.73 sq M.predicted among non-blacks MDRD (S/P/Bld) [Vol rate/Area] mL/min/1.73 m2 Normal >=59mL/min/1 .73 m2 [facility] Chem S Glucose [Mass/Vol] 112 mg/dL Normal 55 - 199 mg/dL [facility] Potassium [Moles/Vol] 3.3 mmol/L Low 3.5 - 5.3 mmol/L [facility] Sodium [Moles/Vol] 139 mmol/L Normal 135 - 145 mmol/L [facility] Urea nitrogen [Mass/Vol] 14 mg/dL Normal 5 - 21 mg/dL [facility] Urea nitrogen/Creatinine [Mass ratio] 16 mg/mg Normal 10 - 20 [facility] HEMATOLOGYOrdered By: SYSTEM SYSTEM on 04-08-2022 [...] E9/L [facility] HemeAutoSS NM STRESS ONLY SINGLEon 12-2 NM STRESS ONLY SINGLE Patient: ALEXA BAE Exam Date: 04/01/2022 : 1970 Gender:F Ordering : DR DARIUSZ KEEN . Admission #: [id number] Family : Order #: [id number] CLICK HERE TO VIEW EXAM RADIOLOGY REPORT [...] M.D. on 04/07/2022 at 11:46 Normal [facility] CBC AUTO DIFFon 12-02-2021 BASO # 0.0 103/ul Normal 0.0-0.1 [facility] Comment on above: Performed By: #### C BC #### [facility] [address] [place] [address] Dr. Therese Kaiser Basophils/100 WBC (Bld) 0.4 % Normal 0.2-2.0 [facility] Comment on above: Performed By: #### C BC #### [facility] [address] [place] [address] Dr. Therese Kaiser EO # 0.2 103/ul Normal 0.0-0.7 [facility] Comment on above: Performed By: #### C BC #### [facility] [address] [place] [address] Dr. Therese Kaiser Eosinophils/100 WBC (Bld) 3.4 % Normal 0.9-7.0 [facility] Comment on above: Performed By: #### C BC #### [facility] [address] [place] [address] Dr. Therese Kaiser Erythrocyte distribution width (RBC) [Ratio] 13.2 % Normal 11.0-15.0 [facility] Comment on above: Performed By: #### C BC #### [facility] [address] [place] [address] Dr. Therese Kaiser Hematocrit (Bld) [Volume fraction] 43.0 % Normal 36.0-48.0 [facility] Comment on above: Performed By: #### C BC #### [facility] [address] [place] [address] Dr. Therese Kaiser Hemoglobin (Bld) [Mass/Vol] 13.9 g/dL Normal 12.0-16.0 [facility] Comment on above: Performed By: #### C BC #### [facility] [address] [place] [address] Dr. Therese Kaiser IG # 0.01 10e3/ul Normal 0.00-0.03 [facility] Comment on above: Performed By: #### C BC #### [facility] [address] [place] [address] Dr. Therese Kaiser IG % 0.2 % Normal 0.0-0.5 [facility] Comment on above: Performed By: #### C BC #### [facility] [address] [place] [address] Dr. Therese Kaiser LYMPH # 1.6 103/ul Normal 1.2-3.8 [facility] Comment on above: Performed By: #### C BC #### [facility] [address] [place] [address] Dr. Therese Kaiser Lymphocytes/100 WBC (Bld) 31.9 % Normal 20.5-60.0 [facility] Comment on above: Performed By: #### C BC #### [facility] [address] [place] [address] Dr. Therese Kaiser MANUAL DIFF REQ NO Normal [facility] Comment on above: Performed By: #### C BC #### [facility] [address] [place] [address] Dr. Therese Kaiser MCH (RBC) [Entitic mass] 28.5 pg Normal 26.7-34.0 [facility] Comment on above: Performed By: #### C BC #### [facility] [address] [address] [address] Therese Kaiser MCHC (RBC) [Mass/Vol] 32.3 g/dL Normal 29.9-35.2 [facility] Comment on above: Performed By: #### C BC #### [facility] [address] [address] [address] Therese Kaiser MCV (RBC) [Entitic vol] 88.3 fL Normal 81.0-99.0 [facility] Comment on above: Performed By: #### C BC #### [facility] [address] [address] [address] Therese Kaiser MONO # 0.5 103/ul Normal 0.3-0.8 [facility] Comment on above: Performed By: #### C BC #### [facility] [address] [place] [address] Dr. Therese Kaiser Monocytes/100 WBC (Bld) 10.3 % Normal 1.7-12.0 [facility] Comment on above: Performed By: #### C BC #### [facility] [address] [place] [address] Dr. Therese Kaiser NEUT # 2.7 103/ul Normal 1.4-6.5 [facility] Comment on above: Performed By: #### C BC #### [facility] [address] [address] [address] Therese Kaiser Neutrophils/100 WBC (Bld) 53.8 % Normal 43.0-75.0 [facility] Comment on above: Performed By: #### C BC #### [facility] [address] [address] [address] Therese Kaiser Platelet mean volume (Bld) [Entitic vol] 8.9 fL Critically low 9.5-13.5 [facility] Comment on above: Performed By: #### C BC #### [facility] [address] [address] [address] Therese Kaiser PLT 295 103/ul Normal 150-450 [facility] Comment on above: Performed By: #### C BC #### [facility] [address] [place] [address] Dr. Therese Kaiser RBC 4.87 106/ul Normal 4.20-5.40 [facility] Comment on above: Performed By: #### C BC #### [facility] [address] [place] [address] Dr. Therese Kaiser WBC 5.0 103/ul Normal 4.0-11.0 [facility] Comment on above: Performed By: #### C BC #### [facility] [address] [place] [address] Dr. Therese Kaiser PROTIMEon 12-02-2021 INR Coag (PPP) [Relative time] 0.95 {INR} Normal [facility] Comment on above: Performed By: #### P T, PTT #### [facility] [address] [place] [address] Dr. Therese Kaiser INR GUIDELINES SEE BELOW Normal [facility] Comment on above: Result Comment: GUTIERREZ RED INR: 2.0 - 3.0 CONDITIONS NOT LISTED BELOW 2.5 - 3.5 FOR PROSTHETIC HEART VALVE REPLACEMENT 2.5 - 3.5 RECURRENT THROMBOSIS Performed By: #### P T, PTT #### [facility] [address] [place] [address] Dr. Therese Kaiser PT Coag (PPP) [Time] 10.3 s Normal 9.0-11.6 [facility] Comment on above: Performed By: #### P T, PTT #### [facility] [address] [place] [address] Dr. Therese Kaiser PTTon 12-02-2021 aPTT Coag (Bld) [Time] 27.6 s Normal 22.3-36.2 [facility] Comment on above: Performed By: #### P T, PTT #### [facility] [address] [place] [address] Dr. Therese Kaiser GLYCOHEMOGLOBIN A1Con 2021 ADA RECOMMENDATION SEE BELOW Normal [facility] Comment on above: Result Comment: ADA RECOMMENDED LIMIT 4.0 - 6.0 ADA THERAPEUTIC TARGET < 7.0 ACTION SUGGESTED > 7.0 Performed By: #### A 1C ####[facility] [address] [id number] Therese Kaiser Glucose [Mass/Vol] 128 mg/dL Normal [facility] Comment on above: Performed By: #### A 1C ####[facility] [address] [id number] Therese Kaiser HbA1c (Bld) [Mass fraction] 6.1 % Normal 4.5-6.2 [facility] Comment on above: Performed By: #### A 1C ####[facility] [address] [address]Dr. Therese Kaiser CBC AUTO DIFFon 08-15-2021 BASO # 0.0 103/ul Normal 0.0-0.1 [facility] Comment on above: Performed By: #### C BC #### [facility] [address] [place] [address] Dr. Therese Kaiser Basophils/100 WBC (Bld) 0.5 % Normal 0.2-2.0 [facility] Comment on above: Performed By: #### C BC #### [facility] [address] [place] [address] Dr. Therese Kaiser EO # 0.2 103/ul Normal 0.0-0.7 [facility] Comment on above: Performed By: #### C BC #### [facility] [address] [address] [address] Therese Kaiser Eosinophils/100 WBC (Bld) 2.7 % Normal 0.9-7.0 [facility] Comment on above: Performed By: #### C BC #### [facility] [address] [place] [address] Dr. Therese Kaiser Erythrocyte distribution width (RBC) [Ratio] 14.1 % Normal 11.0-15.0 [facility] Comment on above: Performed By: #### C BC #### [facility] [address] [place] [address] Dr. Therese Kaiser Hematocrit (Bld) [Volume fraction] 43.3 % Normal 36.0-48.0 [facility] Comment on above: Performed By: #### C BC #### [facility] [address] [place] [address] Dr. Therese Kaiser Hemoglobin (Bld) [Mass/Vol] 14.0 g/dL Normal 12.0-16.0 [facility] Comment on above: Performed By: #### C BC #### [facility] [address] [place] [address] Dr. Therese Kaiser IG # 0.02 10e3/ul Normal 0.00-0.03 [facility] Comment on above: Performed By: #### C BC #### [facility] [address] [place] [address] Dr. Therese Kaiser IG % 0.3 % Normal 0.0-0.5 [facility] Comment on above: Performed By: #### C BC #### [facility] [address] [place] [address] Dr. Therese Kaiser LYMPH # 1.8 103/ul Normal 1.2-3.8 [facility] Comment on above: Performed By: #### C BC #### [facility] [address] [place] [address] Dr. Therese Kaiser Lymphocytes/100 WBC (Bld) 27.6 % Normal 20.5-60.0 [facility] Comment on above: Performed By: #### C BC #### [facility] [address] [place] [address] Dr. Therese Kaiser MANUAL DIFF REQ NO Normal [facility] Comment on above: Performed By: #### C BC #### [facility] [address] [place] [address] Dr. Therese Kaiser MCH (RBC) [Entitic mass] 28.7 pg Normal 26.7-34.0 [facility] Comment on above: Performed By: #### C BC #### [facility] [address] [place] [address] Dr. Therese Kaiser MCHC (RBC) [Mass/Vol] 32.3 g/dL Normal 29.9-35.2 [facility] Comment on above: Performed By: #### C BC #### [facility] [address] [address] [address] Therese Kaiser MCV (RBC) [Entitic vol] 88.7 fL Normal 81.0-99.0 [facility] Comment on above: Performed By: #### C BC #### [facility] [address] [address] [address] Therese Kaiser MONO # 0.5 103/ul Normal 0.3-0.8 [facility] Comment on above: Performed By: #### C BC #### [facility] [address] [address] [address] Therese Kaiser Monocytes/100 WBC (Bld) 7.9 % Normal 1.7-12.0 [facility] Comment on above: Performed By: #### C BC #### [facility] [address] [place] [address] Dr. Therese Kaiser NEUT # 3.9 103/ul Normal 1.4-6.5 [facility] Comment on above: Performed By: #### C BC #### [facility] [address] [place] [address] Dr. Therese Kaiser Neutrophils/100 WBC (Bld) 61.0 % Normal 43.0-75.0 [facility] Comment on above: Performed By: #### C BC #### [facility] [address] [place] [address] Dr. Therese Kaiser Platelet mean volume (Bld) [Entitic vol] 8.9 fL Critically low 9.5-13.5 [facility] Comment on above: Performed By: #### C BC #### [facility] [address] [place] [address] Dr. Therese Kaiser PLT 293 103/ul Normal 150-450 [facility] Comment on above: Performed By: #### C BC #### [facility] [address] [place] [address] Dr. Therese Kaiser RBC 4.88 106/ul Normal 4.20-5.40 [facility] Comment on above: Performed By: #### C BC #### [facility] [address] [address] [address] Therese Kaiser WBC 6.3 103/ul Normal 4.0-11.0 [facility] Comment on above: Performed By: #### C BC #### [facility] [address] [address] [address] Therese Kaiser LIPID PROFILEon 08-15-2021 CHOL-HDL RATIO NORM SEE BELOW Normal [facility] Comment on above: Result Comment: 3.3 - 4.4 LOW RISK 4.4 - 7.1 AVERAGE RISK 7.1 - 11.0 MODERATE RISK >11.0 HIGH RISK Performed By: #### L IPID, TSH, CMP #### [facility] [address] [place] [address] Dr. Therese Kaiser Cholesterol [Mass/Vol] 148 mg/dL Normal <=200 [facility] Comment on above: Performed By: #### L IPID, TSH, CMP #### [facility] [address] [address] [address] Therese Kaiser Cholesterol in HDL [Mass/Vol] 38 mg/dL Critically low 40-60 [facility] Comment on above: Performed By: #### L IPID, TSH, CMP #### [facility] [address] [place] [address] Dr. Therese Kaiser Cholesterol in LDL [Mass/Vol] 70.8 mg/dL Normal [facility] Comment on above: Performed By: #### L IPID, TSH, CMP #### [facility] [address] [address] [address] Therese Kaiser Cholesterol.total/Chol esterol in HDL [Mass ratio] 3.9 {ratio} Normal [facility] Comment on above: Performed By: #### L IPID, TSH, CMP #### [facility] [address] [place] [address] Dr. Therese Kaiser HDL NORMAL > or = 60 mg/dl - LO W CARDIOVASCULAR RISK <40 mg/dl - HIGH CARDIOVASCULAR RISK Normal [facility] Comment on above: Performed By: #### L IPID, TSH, CMP #### [facility] [address] [address] [address] Therese Kaiser LDL CALC NORMAL SEE BELOW Normal [facility] Comment on above: Result Comment: <100 mg/dl OPTIMAL 100 - 129 mg/dl NEAR OR ABOVE OPTIMAL 130 - 159 mg/dl BORDERLINE HIGH 160 - 189 mg/dl HIGH >190 mg/dl VERY HIGH Performed By: #### L IPID, TSH, CMP #### [facility] [address] [address] [address] Therese Kaiser Triglyceride [Mass/Vol] 196 mg/dL Critically high <=150 [facility] Comment on above: Performed By: #### L IPID, TSH, CMP #### [facility] [address] [address] [address] Therese Kaiser VLDL CALC 39.2 mg/dL Normal [facility] Comment on above: Performed By: #### L IPID, TSH, CMP #### [facility] [address] [place] [address] Dr. Therese Kaiser PROF 14(COMP METB)on 022 Albumin [Mass/Vol] 3.8 g/dL Normal 3.4-5.[address] [facility] Comment on above: Performed By: #### L IPID, TSH, CMP #### [facility] [facility] [address] [place] [address] Dr. Therese Kaiser Albumin/Globulin [Mass ratio] 1.1 {ratio} Normal [facility] Comment on above: Performed By: #### L IPID, TSH, CMP #### [facility] [address] [address] [address] Therese Kaiser ALP [Catalytic activity/Vol] 97 U/L Normal 46-116 [facility] Comment on above: Performed By: #### L IPID, TSH, CMP #### [facility] [address] [place] [address] Dr. Therese Kaiser ALT [Catalytic activity/Vol] 47 U/L Normal 14-59 [facility] Comment on above: Performed By: #### L IPID, TSH, CMP #### [facility] [address] [place] [address] Dr. Therese Kaiser Anion gap [Moles/Vol] 12.5 mmol/L Normal Th e [facility] Comment on above: Performed By: #### L IPID, TSH, CMP #### [facility] [address] [address] [address] Therese Kaiser AST [Catalytic activity/Vol] 31 U/L Normal 15-37 [facility] Comment on above: Performed By: #### L IPID, TSH, CMP #### [facility] [address] [address] [address] Therese Kaiser Bilirubin [Mass/Vol] 0.4 mg/dL Normal 0.2-1.0 [facility] Comment on above: Performed By: #### L IPID, TSH, CMP #### [facility] [address] [place] [address] Dr. Therese Kaiser Calcium [Mass/Vol] 9.2 mg/dL Normal 8.5-10.[address] [facility] Comment on above: Performed By: #### L IPID, TSH, CMP #### [facility] [address] [place] [address] Dr. Therese Kaiser Chloride [Moles/Vol] 106 mmol/L Normal 98-107 [facility] Comment on above: Performed By: #### L IPID, TSH, CMP #### [facility] [address] [place] [address] Dr. Therese Kaiser CO2 [Moles/Vol] 26.1 mmol/L Normal 21.0-32.0 [facility] Comment on above: Performed By: #### L IPID, TSH, CMP #### [facility] [address] [place] [address] Dr. Therese Kaiser Creatinine [Mass/Vol] 0.86 mg/dL Normal 0.55-1.02 [facility] Comment on above: Performed By: #### L IPID, TSH, CMP #### [facility] [address] [address] [address] Therese Kaiser EGFR-AF NIGERIAN >60 Normal >=60 [facility] Comment on above: Performed By: #### L IPID, TSH, CMP #### [facility] [address] [address] [address] Therese Kaiser EGFR-NON AF NIGERIAN >60 Normal >=60 [facility] Comment on above: Performed By: #### L IPID, TSH, CMP #### [facility] [address] [address] [address] Therese Kaiser Globulin (S) [Mass/Vol] 3.6 g/dL Normal [facility] Comment on above: Performed By: #### L IPID, TSH, CMP #### [facility] [address] [address] [address] Therese Kaiser Glucose [Mass/Vol] 125 mg/dL Critically high 74-106 [facility] Comment on above: Performed By: #### L IPID, TSH, CMP #### [facility] [address] [address] [address] Therese Kaiser Potassium [Moles/Vol] 3.6 mmol/L Normal 3.5-5.1 [facility] Comment on above: Performed By: #### L IPID, TSH, CMP #### [facility] [address] [address] [address] Therese Kaiser Protein [Mass/Vol] 7.4 g/dL Normal 6.4-8.2 [facility] Comment on above: Performed By: #### L IPID, TSH, CMP #### [facility] [address] [address] [address] Therese Kaiser Sodium [Moles/Vol] 141 mmol/L Normal 136-145 [facility] Comment on above: Performed By: #### L IPID, TSH, CMP #### [facility] [address] [address] [address] Therese Kaiser Urea nitrogen [Mass/Vol] 12.0 mg/dL Normal 7.0-18.0 [facility] Comment on above: Performed By: #### L IPID, TSH, CMP #### [facility] [address] [address] [address] Therese Kaiser Urea nitrogen/Creatinine [Mass ratio] 14.0 mg/mg Normal [facility] Comment on above: Performed By: #### L IPID, TSH, CMP #### [facility] [address] [address] [address] Therese Kaiser TSHon 08-15-2021 TSH 1.701 uIU/mL Normal 0.358-3.740 [facility] Comment on above: Performed By: #### L IPID, TSH, CMP #### [facility] [address] [place] [address] Dr. Therese Kaiser TSH RANGE SEE BELOW Normal [facility] Comment on above: Result Comment: <0.3 4 UIU/ml HYPERTHYROID 0.34-5.60 UIU/ml EUTHYROID >5.60 UIU/ml HYPOTHYROID Performed By: #### L IPID, TSH, CMP #### [facility] [address] [place] [address] Dr. Therese Kaiser VITAMIN D 25 OHon 08-15-2021 VIT D 25-OH 12.9 ng/mL Normal [facility] Comment on above: Performed By: #### V ITAD #### [facility] [address] [place] [address] Dr. Therese Kaiser VIT D RANGES SEE BELOW Normal [facility] Comment on above: Result Comment: <20 ng/mL Vit D deficient 20 - <30 ng/mL Vit D insufficient 30 - 100 ng/mL Vit D sufficient >100 ng/mL Potential Toxicity Performed By: #### V ITAD #### [facility] [address] [place] [address] Dr. Therese Kaiser Office Visit (Cardiology)on 03-19-2021 [...] 25mm ACS (acute coronary syndrome) (411.1) (I24.9) [facility] September 2020 Class 2 obesity with body mass index (BMI) of 36.0 to 36.9 in adult (278.00,V85.36) (E66.9,Z68.36) Reviewed the merits of healthy lifestyle choices on overall cardiovascular health. 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 Normal [facility] Tobacco Screening.on 021 Fall risk assessment c) Not medically indicated [facility] clipkit y 250 DO Work Phone: Tobacco use status CP b) No [facility] [employer]-BodBot y 250 DO Work Phone: Héctor 12-27-2020 L -- ---- Specimen: [id number] Received: 12/27/20 Status: EMILIE Cruz Num: [id number] Spec Type: Surgical Subm Dr: Frank Felix Jr, DO Tissues: A Colon Biopsy (RANDOM COLON BX) Procedures: HE Stain/2, Gross/Micro L4 ---- Patient Age/Sex Location Account Attending Physician ---- Alexa Carey/F [id number] Frank Felix Jr, DO ---- SPEC NUM: [id number] RECD: 12/27/20 STATUS: EMILIE CRUZ NUM: [id number] HARSHAL: 12/27/20- SUBM DR: Frank Felix Jr, DO ENTERED: 12/27/20-1054 [facility] DR: SPEC TYPE: Surgical DEPT: S ORDERED: HE [...] support the above pathologic diagnosis. CPT Codes 77074 ---- ---- Specimen: [id number] Received: 12/27/20 Status: EMILIE Cruz Num: [id number] Spec Type: Surgical Subm Dr: Frank Felix Jr DO Tissues: A Colon Biopsy (RANDOM COLON BX) Procedures: HE Stain/2, Gross/Micro L4 ---- Patient: Alexa Carey [id number] (Continued) ---- Signed (signature on file) Yaniv May MD 12/30/20 1422 [facility] COVID-19 Antigenon COVID-19 Antigen Healthcare Worker?: Y Alessandro Reference [...] its performance Alessandro Disclaimer characteristic determined by [employer] and Alessandro Disclaimer validated at [facility]. This Alessandro Disclaimer test has not been [...] is terminated or revoked sooner. PERFORMED BY: [facility] [address] [place] [address] PATHOLOGIST ALCOHOLIC COUNSELOR SUKI LAZAR M.D. Normal [facility] Comment on above: Performed By: #### S SISSY COVID-19 ALESSANDRO #### [facility] [address] [place] [address] [facility] Alessandro Ag Negativeon 12-26-19 21 Alessandro Ag Negative Negative Normal Negative [facility] Comment on above: Result Comment: This is a duplicate Alessandro SARS Antigen (JOANNA) result to be used for statistical tracking purpose only. PERFORMED BY: [facility] [address] [place] [address] PATHOLOGIST ALCOHOLIC COUNSELOR SUKI LAZAR M.D. Performed By: #### S OFIANEG, COVID-19 ALESSANDRO #### [facility] [address] [place] [address] [place] CNCOon 09-25-2020 CNCO Letter Text Normal [facility] BASIC METABOLIC PANELon 09-03 Calcium [Mass/Vol] 9.4 mg/dL Normal 8.6-10.3 [facility] Comment on above: Order Comment: No: D o not add to previous draw Performed By: #### 4 6413, 69075 ####[facility] [place] [address], [facility] Chloride [Moles/Vol] 103 mmol/L Normal 98-107 [facility] Comment on above: Order Comment: No: D o not add to previous draw Performed By: #### 4 0713, 51592 ####[facility] [place] [address], [place] CO2 [Moles/Vol] 31 mmol/L Normal 21-31 [facility] Comment on above: Order Comment: No: D o not add to previous draw Performed By: #### 4 1213, 67335 ####[facility] [place] [address], [place] Creatinine [Mass/Vol] 0.93 mg/dL Normal 0.60-1.20 [facility] Comment on above: Order Comment: No: D o not add to previous draw Performed By: #### 4 9313, 13903 ####[facility] [place] [address], [place] GFR/1.73 sq M.predicted among blacks MDRD (S/P/Bld) [Vol rate/Area] mL/min/{1.73_m2} Normal >60 [facility] Comment on above: Order Comment: No: D o not add to previous draw Performed By: #### 4 54, 10416 ####[facility] [address], [facility] GFR/1.73 sq M.predicted among non-blacks MDRD (S/P/Bld) [Vol rate/Area] mL/min/{1.73_m2} Normal >60 [facility] Comment on above: Order Comment: No: D o not add to previous draw Performed By: #### 4 26, 88380 ####[facility] [place] [address], [facility] Glucose [Mass/Vol] 106 mg/dL High 70-100 [facility] Comment on above: Order Comment: No: D o not add to previous draw Performed By: #### 4 22, 71635 ####[facility] [place] [address], [place] Potassium [Moles/Vol] 3.8 mmol/L Normal 3.5-5.1 [facility] Comment on above: Order Comment: No: D o not add to previous draw Performed By: #### 4 79, 15849 ####[facility] [place] [address], [place] Sodium [Moles/Vol] 140 mmol/L Normal 136-145 [facility] Comment on above: Order Comment: No: D o not add to previous draw Performed By: #### 4 42, 00642 ####[facility] [place] [address], [place] Urea nitrogen [Mass/Vol] 13 mg/dL Normal 7-25 [facility] Comment on above: Order Comment: No: D o not add to previous draw Performed By: #### 4 56, 83121 ####[facility] CBC W/DIFFon 09-17-2020 ABS IMM GRANS 0.0 10*3/uL Normal 0.0-0.2 [facility] Comment on above: Order Comment: No: D o not add to previous draw Performed By: #### 0 0071, 98508, 84375 #### [facility] [address] [place] [address], [facility] ABS NEUTROPHILS 4.3 10*3/uL Normal 1.6-7.6 [facility] Comment on above: Order Comment: No: D o not add to previous draw Performed By: #### 0 0071, 54835, 61909 #### [facility] [address] [place] [address], [facility] Basophils (Bld) [#/Vol] 0.0 10*3/uL Normal 0.0-0.2 [facility] Comment on above: Order Comment: No: D o not add to previous draw Performed By: #### 0 0071, 54065, 52654 #### [facility] [address] [place] [address], [facility] Basophils/100 WBC (Bld) 0.4 % Normal 0.0-1.0 [facility] Comment on above: Order Comment: No: D o not add to previous draw Performed By: #### 0 0071, 01747, 16020 #### [facility] [address] [place] [address], [facility] Eosinophils (Bld) [#/Vol] 0.2 10*3/uL Normal 0.0-0.5 [facility] Comment on above: Order Comment: No: D o not add to previous draw Performed By: #### 0 0071, 56392, 04514 #### [facility] [address] [place] [address], [facility] Eosinophils/100 WBC (Bld) 2.7 % Normal 0.0-6.0 [facility] Comment on above: Order Comment: No: D o not add to previous draw Performed By: #### 0 0071, 01378, 98953 #### [facility] [address] [place] [address], [facility] Erythrocyte distribution width (RBC) [Ratio] 13.4 % Normal 11.5-15.0 [facility] Comment on above: Order Comment: No: D o not add to previous draw Performed By: #### 0 0071, 23741, 41820 #### [facility] [address] [place] [address], [facility] Hematocrit (Bld) [Volume fraction] 38.8 % Normal 36.0-45.0 [facility] Comment on above: Order Comment: No: D o not add to previous draw Performed By: #### 0 0071, 63468, 86283 #### [facility] [address] [facility] [place] [address], [facility] Hemoglobin (Bld) [Mass/Vol] 12.7 g/dL Normal 12.0-15.0 [facility] Comment on above: Order Comment: No: D o not add to previous draw Performed By: #### 0 0071, 57871, 60188 #### [facility] [address] [facility] [place] [address], [facility] IMMATURE GRANS 0.4 % Normal 0.0-1.0 [facility] Comment on above: Order Comment: No: D o not add to previous draw Performed By: #### 0 0071, 61796, 53633 #### [facility] [address] [place] [id number], [facility] Lymphocytes (Bld) [#/Vol] 1.7 10*3/uL Normal 1.2-4.0 [facility] Comment on above: Order Comment: No: D o not add to previous draw Performed By: #### 0 0071, 26260, 51461 #### [facility] [address] [place] [address], [facility] Lymphocytes/100 WBC (Bld) 24.4 % Normal 20.0-45.0 [facility] Comment on above: Order Comment: No: D o not add to previous draw Performed By: #### 0 0071, 16747, 94565 #### [facility] [address] [place] [address], [facility] MCH (RBC) [Entitic mass] 29.8 pg Normal 27.0-33.0 [facility] Comment on above: Order Comment: No: D o not add to previous draw Performed By: #### 0 0071, 96177, 69729 #### [facility] [address] [place] [address], [facility] MCHC (RBC) [Mass/Vol] 32.7 g/dL Normal 32.0-35.0 [facility] Comment on above: Order Comment: No: D o not add to previous draw Performed By: #### 0 0071, 79341, 67896 #### [facility] [address] [place] [address], [facility] MCV (RBC) [Entitic vol] 91.1 fL Normal 82.0-98.0 [facility] Comment on above: Order Comment: No: D o not add to previous draw Performed By: #### 0 007, 13905, 96534 #### [facility] [address] [place] [address], [facility] Monocytes (Bld) [#/Vol] 0.7 10*3/uL Normal 0.1-1.0 [facility] Comment on above: Order Comment: No: D o not add to previous draw Performed By: #### 0 0071, 48884, 49867 #### [facility] [address] [facility] [place] [place] [address], [facility] MONOS 10.1 % Normal 5.0-12.0 [facility] Comment on above: Order Comment: No: D o not add to previous draw Performed By: #### 0 0071, 57850, 62241 #### [facility] [address] [place] [address], [facility] Neutrophils/100 WBC (Bld) 62.0 % Normal 40.0-72.0 [facility] Comment on above: Order Comment: No: D o not add to previous draw Performed By: #### 0 0071, 43622, 31499 #### [facility] [address] [place] [address], [facility] Nucleated RBC/100 WBC (Bld) [Ratio] 0 % Normal 0-0 [facility] Comment on above: Order Comment: No: D o not add to previous draw Performed By: #### 0 0071, 81241, 35229 #### [facility] [address] [place] [id number], [facility] PLAT CNT 253 10*3/uL Normal 150-400 [facility] Comment on above: Order Comment: No: D o not add to previous draw Performed By: #### 0 0071, 09184, 78852 #### [facility] [address] [place] [address], [facility] RBC (Bld) [#/Vol] 4.26 10*6/uL Normal 3.80-5.00 [facility] Comment on above: Order Comment: No: D o not add to previous draw Performed By: #### 0 0071, 08597, 20410 #### [facility] [address] [place] [address], [facility] WBC (Bld) [#/Vol] 7.00 10*3/uL Normal 4.00-10.60 [facility] Comment on above: Order Comment: No: D o not add to previous draw Performed By: #### 0 0071, 67688, 86092 #### [facility] [address] [place] [address], [place] LIPID PROFILEon 09-17-2020 Cholesterol [Mass/Vol] 113 mg/dL Low 120-200 Th e [facility] Comment on above: Order Comment: No: D o not add to previous draw Result Comment: CHOL ESTEROL REFERENCE RANGE: 20 YEARS AND OLDER CARDIOVASCULAR RISK Less than 200 mg/dl Low Risk 200 to 239 mg/dl Borderline Risk 240 mg/dl and greater High Risk Performed By: #### 4 9629, 30115 ####[facility] [place] [address], [place] Cholesterol in HDL [Mass/Vol] 31 mg/dL Normal 23-92 The [facility] Comment on above: Order Comment: No: D o not add to previous draw Result Comment: Slig ht variation in normal range could be due to gender and/or age. HDL CHOLESTEROL REFERENCE RANGE: 20 years and older Cardiovascular Risk > or =60 mg/dL Desirable 40 TO 59 mg/dL Low Risk <40 mg/dL High Risk Performed By: #### 4 93, 69265 ####[facility] [facility] [place] [address], [facility] Cholesterol in LDL [Mass/Vol] 51 mg/dL Normal 0-130 The [facility] Comment on above: Order Comment: No: D o not add to previous draw Result Comment: LDL IS A CALCULATION LDL IS ONLY VALID IF THE TRIG IS LESS THAN 400. Performed By: #### 4 8031, 41375 ####[facility] [facility] [place] [address], [place] Cholesterol.total/Chol esterol in HDL [Mass ratio] 3.6 {ratio} Normal 0.0-4.5 The [facility] Comment on above: Order Comment: No: D o not add to previous draw Performed By: #### 4 1851, 48616 ####[facility] [place] [address], [place] NON-HDL CHOLESTEROL 82 mg/dL Normal [facility] Comment on above: Order Comment: No: D o not add to previous draw Performed By: #### 4 1764, 56744 ####[facility] [place] [address], [place] Triglyceride [Mass/Vol] 154 mg/dL High 40-149 The [facility] Comment on above: Order Comment: No: D o not add to previous draw Result Comment: TRIG LYCERIDE REFERENCE RANGE: 20 YEARS AND OLDER CARDIOVASCULAR RISK LESS THAN 150 mg/dl LOW RISK 150 TO 199 mg/dl BORDERLINE RISK 200 mg/dl AND GREATER HIGH RISK Performed By: #### 4 6413, 44930 ####[facility] [facility] VLDL CHOL 31 mg/dL Normal 0-40 The [facility] Comment on above: Order Comment: No: D o not add to previous draw Performed By: #### 4 6413, 94518 ####[facility] [facility].[address] POC GLUCOSE LABon 09-17-2020 Glucose [Mass/Vol] 159 mg/dL High 70-100 The [facility] Comment on above: Performed By: #### 0 0071, 50299, 78502 #### [facility] [address] [facility] [place] [place] [address], [facility] Glucose [Mass/Vol] 109 mg/dL High 70-100 The [facility] Comment on above: Performed By: #### 0 0071, 80188, 20723 #### [facility] [address] [facility]. [address] UFH HEPARIN ASSAYon 09-18-19 21 UNFRACTIONATED HEPARIN <0.10 Critically low 0.30-0.70 The [facility] Comment on above: Result Comment: [place] roxaban and Apixaban will interfere with the anti Xa assay used to monitor UFH and LMWH. RESULTS CHECKED AND CALLED. ACCURATELY READ BACK BY Olga Saucedo RN at 0740 Performed By: #### 3 0477 ####[facility] [facility] [place] [place] [address], [facility] ALDOSTERONE [id number] 09-17-19 21 ALDOSTERONE 4.2 ng/dL Normal The [facility] Comment on above: Order Comment: No: D [...] reference intervals for this test in the [facility] Test Directory ([employer]). Performed By: [facility] [address] [place] [id number] Casting Agent: Adriana Cordoba MD BASIC METABOLIC PANELon - Calcium [Mass/Vol] 9.1 mg/dL Normal 8.6-10.3 The [facility] Comment on above: Order Comment: No: D o not add to previous draw Performed By: #### 0 0071, 12608, 72749 #### [facility] [address] [place] [address], [place] Chloride [Moles/Vol] 105 mmol/L Normal 98-107 The [facility] Comment on above: Order Comment: No: D o not add to previous draw Performed By: #### 0 0071, 93247, 52008 #### [facility] [address] [place] [address], [place] CO2 [Moles/Vol] 28 mmol/L Normal 21-31 The [facility] Comment on above: Order Comment: No: D o not add to previous draw Performed By: #### 0 0071, 29778, 10524 #### [facility] [address] [place] [address], [place] Creatinine [Mass/Vol] 0.79 mg/dL Normal 0.60-1.20 The [facility] Comment on above: Order Comment: No: D o not add to previous draw Performed By: #### 0 0071, 93914, 49162 #### [facility] [address] [place] [address], [place] GFR/1.73 sq M.predicted among blacks MDRD (S/P/Bld) [Vol rate/Area] mL/min/{1.73_m2} Normal >60 The [facility] Comment on above: Order Comment: No: D o not add to previous draw Performed By: #### 0 0071, 35245, 05029 #### [facility] [address] [place] [address], [place] GFR/1.73 sq M.predicted among non-blacks MDRD (S/P/Bld) [Vol rate/Area] mL/min/{1.73_m2} Normal >60 The [facility] Comment on above: Order Comment: No: D o not add to previous draw Performed By: #### 0 0071, 70617, 67111 #### [facility] [address] [place] [address], [place] Glucose [Mass/Vol] 109 mg/dL High 70-100 The [facility] Comment on above: Order Comment: No: D o not add to previous draw Performed By: #### 0 0071, 47837, 27027 #### [facility] [address] [place] [address], [place] Potassium [Moles/Vol] 3.7 mmol/L Normal 3.5-5.1 [facility] Comment on above: Order Comment: No: D o not add to previous draw Performed By: #### 0 0071, 53539, 86939 #### [facility] [address] [place] [address], [place] Sodium [Moles/Vol] 140 mmol/L Normal 136-145 [facility] Comment on above: Order Comment: No: D o not add to previous draw Performed By: #### 0 0071, 72931, 92172 #### [facility] [address] Urea nitrogen [Mass/Vol] 12 mg/dL Normal 7-25 [facility] Comment on above: Order Comment: No: D o not add to previous draw Performed By: #### 0 0071, 78077, 13696 #### [facility] [address] [place] [address], [facility] CALCIUM IONIZED CBGLon 09-16 IONIZED CALCIUM 1.16 mmol/L Normal 1.12-1.30 [facility] Comment on above: Performed By: #### 0 0071, 51108, 90319 #### [facility] [address] [place] [address], [facility] CBC W/DIFFon 09-16-2020 ABS IMM GRANS 0.0 10*3/uL Normal 0.0-0.2 [facility] Comment on above: Order Comment: No: D o not add to previous draw Performed By: #### 0 0071, 37202, 63044 #### [facility] [address] [place] [address], [facility] ABS NEUTROPHILS 4.4 10*3/uL Normal 1.6-7.6 [facility] Comment on above: Order Comment: No: D o not add to previous draw Performed By: #### 0 0071, 47307, 53152 #### [facility] [address] [place] [address], [facility] Basophils (Bld) [#/Vol] 0.0 10*3/uL Normal 0.0-0.2 [facility] Comment on above: Order Comment: No: D o not add to previous draw Performed By: #### 0 0071, 90068, 64958 #### [facility] [address] [place] [address], [facility] Basophils/100 WBC (Bld) 0.3 % Normal 0.0-1.0 [facility] Comment on above: Order Comment: No: D o not add to previous draw Performed By: #### 0 0071, 08084, 62538 #### [facility] [address] [place] [address], [facility] Eosinophils (Bld) [#/Vol] 0.2 10*3/uL Normal 0.0-0.5 [facility] Comment on above: Order Comment: No: D o not add to previous draw Performed By: #### 0 0071, 30840, 67733 #### [facility] [address] [place] [address], [facility] Eosinophils/100 WBC (Bld) 2.3 % Normal 0.0-6.0 [facility] Comment on above: Order Comment: No: D o not add to previous draw Performed By: #### 0 0071, 66182, 90943 #### [facility] [address] [place] [address], [facility] Erythrocyte distribution width (RBC) [Ratio] 13.2 % Normal 11.5-15.0 [facility] Comment on above: Order Comment: No: D o not add to previous draw Performed By: #### 0 0071, 99194, 34815 #### [facility] [address] [place] [address], [facility] Hematocrit (Bld) [Volume fraction] 39.4 % Normal 36.0-45.0 [facility] Comment on above: Order Comment: No: D o not add to previous draw Performed By: #### 0 0071, 65757, 32584 #### [facility] [address] [place] [address], [facility] Hemoglobin (Bld) [Mass/Vol] 12.8 g/dL Normal 12.0-15.0 [facility] Comment on above: Order Comment: No: D o not add to previous draw Performed By: #### 0 0071, 53797, 04955 #### [facility] [address] [place] [address], [place] IMMATURE GRANS 0.4 % Normal 0.0-1.0 [facility] Comment on above: Order Comment: No: D o not add to previous draw Performed By: #### 0 0071, 09523, 88318 #### [facility] [address] [place] [address], [facility] Lymphocytes (Bld) [#/Vol] 1.8 10*3/uL Normal 1.2-4.0 [facility] Comment on above: Order Comment: No: D o not add to previous draw Performed By: #### 0 0071, 18988, 63682 #### [facility] [address] [place] [id number], [facility] Lymphocytes/100 WBC (Bld) 25.8 % Normal 20.0-45.0 [facility] Comment on above: Order Comment: No: D o not add to previous draw Performed By: #### 0 0071, 70211, 72624 #### [facility] [address] [place] [address], [place] MCH (RBC) [Entitic mass] 29.8 pg Normal 27.0-33.0 [facility] Comment on above: Order Comment: No: D o not add to previous draw Performed By: #### 0 0071, 86546, 32653 #### [facility] [address] [place] [id number], [place] MCHC (RBC) [Mass/Vol] 32.5 g/dL Normal 32.0-35.0 [facility] Comment on above: Order Comment: No: D o not add to previous draw Performed By: #### 0 0071, 27597, 61642 #### [facility] [address] [place] [address], [place] MCV (RBC) [Entitic vol] 91.8 fL Normal 82.0-98.0 [facility] Comment on above: Order Comment: No: D o not add to previous draw Performed By: #### 0 0071, 39039, 34360 #### [facility] [address] [place] [address], [facility] Monocytes (Bld) [#/Vol] 0.6 10*3/uL Normal 0.1-1.0 [facility] Comment on above: Order Comment: No: D o not add to previous draw Performed By: #### 0 0071, 28708, 35162 #### [facility] [address] [place] [id number], [facility] MONOS 8.7 % Normal 5.0-12.0 [facility] Comment on above: Order Comment: No: D o not add to previous draw Performed By: #### 0 0071, 53868, 93739 #### [facility] [address] [place] [address], [facility] Neutrophils/100 WBC (Bld) 62.5 % Normal 40.0-72.0 [facility] Comment on above: Order Comment: No: D o not add to previous draw Performed By: #### 0 0071, 97225, 86154 #### [facility] [address] [place] [address], [facility] Nucleated RBC/100 WBC (Bld) [Ratio] 0 % Normal 0-0 [facility] Comment on above: Order Comment: No: D o not add to previous draw Performed By: #### 0 0071, 15883, 34844 #### [facility] [address] [facility] [place] [address], [facility] PLAT CNT 252 10*3/uL Normal 150-400 [facility] Comment on above: Order Comment: No: D o not add to previous draw Performed By: #### 0 0071, 31231, 23612 #### [facility] [address] [facility] [place] [place] [address], [facility] RBC (Bld) [#/Vol] 4.29 10*6/uL Normal 3.80-5.00 [facility] Comment on above: Order Comment: No: D o not add to previous draw Performed By: #### 0 0071, 46786, 32065 #### [facility] [address] [facility]. [address] WBC (Bld) [#/Vol] 7.01 10*3/uL Normal 4.00-10.60 [facility] Comment on above: Order Comment: No: D o not add to previous draw Performed By: #### 0 0071, 75132, 80030 #### [facility] [address] Cardiovascular Lab Reporton 09-16-2020 Cardiovascular Lab Report [facility] Patient Name: Aurelio [facility] Silvia Neumann MR #: [id number] Department of Physician: Omar Atkinson M.D. Division of Service Date: 09/16/2020 Cardiology Birthdate: 1970 Adult Cardiovascular Room #: 3AB [id number] [facility] [address] [place] [address] Cardiovascular Laboratory Report FINAL IMPRESSIONS: 1. Moderate [...] the left radial artery was obtained. A 6-Persian glide sheath was inserted without difficulty. Bilateral [...] 50% stenosis adjacent to a prominent septal assisted living manager. It is a wrap-around left anterior descending. [...] Jimmy/Esa Vizcarra M.D. Date Trans: 09/16/2020 10:43 A/mario [id number] cc: Dariusz Keen M.D. [address] [place] [address] A [facility] [id number] Normal [facility] METANEPHRINES, PLASMA [id number] n 09-16-[address] See Note Normal [facility] Comment on above: Order Comment: No: D [...] developed and its performance characteristics determined by [facility]. It has not been cleared or approved by the [place] Food and Drug Administration. This test was performed in a CLIA certified laboratory and is intended for clinical purposes. Performed By: [facility] [address] [place] [id number] Casting Agent: Adriana Cordoba MD METANEPHRINE PLASMA 0.13 nmol/L Normal 0.00-0.49 [facility] Comment on above: Order Comment: No: D o not add to previous draw NORMETANEPHRINE PLASMA 0.37 nmol/L Normal 0.00-0.89 [facility] Comment on above: Order Comment: No: D o not add to previous draw POC GLUCOSE LABon 09-16-2020 Glucose [Mass/Vol] 125 mg/dL High 70-100 [facility] Comment on above: Performed By: #### 0 0071, 75943, 40573 #### [facility] [address] [place] [address], [place] Glucose [Mass/Vol] 147 mg/dL High 70-100 [facility] Comment on above: Performed By: #### 0 0071, 29188, 50365 #### [facility] [address] [place] [address], [place] Glucose [Mass/Vol] 100 mg/dL Normal 70-100 [facility] Comment on above: Performed By: #### 0 0071, 97483, 45943 #### [facility] [address] [place] [address], [facility] Glucose [Mass/Vol] 122 mg/dL High 70-100 [facility] Comment on above: Performed By: #### 0 0071, 89833, 98786 #### [facility] [address] [place] [address], [facility] PTH INTACTon 09-16-2020 PTH INTACT 86 pg/mL Normal 12-88 [facility] Comment on above: Order Comment: No: D o not add to previous draw Performed By: #### 0 0071, 85830, 49493 #### [facility] [address] [place] [address], [facility] RENIN ACTIVITY 67826rd 09-16 RENIN ACTIVITY 0.7 ng/mL/hr Normal [facility] Comment on above: Order Comment: No: D [...] developed and its performance characteristics determined by [facility]. It has not been cleared or approved by the [place] Food and Drug Administration. This test was performed in a CLIA certified laboratory and is intended for clinical purposes. Performed By: [facility] [address] [place] [address] Casting Agent: Adriana Cordoba MD TSH3 WITH REFLEX FT4on 09-16 TSH 3RD GENERATION 2.75 uIU/mL Normal 0.34-5.60 [facility] Comment on above: Order Comment: No: D o not add to previous draw Performed By: #### 0 0071, 27955, 66394 #### [facility] [address] UFH HEPARIN ASSAYon 09-17-19 21 UNFRACTIONATED HEPARIN 0.34 IU/mL Normal 0.30-0.70 Th e [facility] Comment on above: Result Comment: [place] roxaban and Apixaban will interfere with the anti Xa assay used to monitor UFH and LMWH. Performed By: #### 3 0477 ####[facility] *SARS-CoV-2 COVID-19on 09-15 SARS-CoV-2 (COVID-19) RNA RAJINDER+probe Ql (Unsp spec) Not detected Normal Not Detected [facility] Comment on above: Order Comment: The A ptima SARS-CoV-2 assay is a nucleic acid amplification test intended for the qualitative detection of RNA from SARS-CoV-2 isolated and purified from nasopharyngeal (MANAGER OF LOSS PREVENTION OPERATIONS),oropharyngeal (OP), nasal swab, sputum, and bronchoalveolar lavage (BAL) specimens from patients with signs and symptoms of infection who are suspected of COVID-19. Results are for the identification of SARS-CoV-2 RNA. The SARS-CoV-2 RNA is generally detectable during the acute phase of infection. The Aptima SARS-CoV-2 Assay on the [employer] Fusion system is intended for use by laboratory personnel specifically instructed and trained in the operation of the [place] and [employer] Fusion system. The Aptima SARS-CoV-2 assay is [...] information. Performed By: #### 3 1792 #### [facility] [address] [facility] [place] [address], [facility] BASIC METABOLIC PANELon 06-1 Calcium [Mass/Vol] 9.1 mg/dL Normal 8.6-10.3 [facility] Comment on above: Order Comment: No: D o not add to previous draw Performed By: #### 0 0071, 92729 ####[facility] [place] [address], [facility] Chloride [Moles/Vol] 106 mmol/L Normal 98-107 [facility] Comment on above: Order Comment: No: D o not add to previous draw Performed By: #### 0 0071, 69046 ####[facility] [place] [address], [facility] CO2 [Moles/Vol] 26 mmol/L Normal 21-31 [facility] Comment on above: Order Comment: No: D o not add to previous draw Performed By: #### 0 70, 80296 ####[facility] [facility] [place] [address], [facility] Creatinine [Mass/Vol] 0.76 mg/dL Normal 0.60-1.20 [facility] Comment on above: Order Comment: No: D o not add to previous draw Performed By: #### 0 70, 11586 ####[facility] [facility] [place] [address], [facility] GFR/1.73 sq M.predicted among blacks MDRD (S/P/Bld) [Vol rate/Area] mL/min/{1.73_m2} Normal >60 [facility] Comment on above: Order Comment: No: D o not add to previous draw Performed By: #### 0 70, 79556 ####[facility] [facility] [place] [address], [facility] GFR/1.73 sq M.predicted among non-blacks MDRD (S/P/Bld) [Vol rate/Area] mL/min/{1.73_m2} Normal >60 [facility] Comment on above: Order Comment: No: D o not add to previous draw Performed By: #### 0 70, 75794 ####[facility] [facility] [place] [address], [facility] Glucose [Mass/Vol] 114 mg/dL High 70-100 [facility] Comment on above: Order Comment: No: D o not add to previous draw Performed By: #### 0 70, 35482 ####[facility] [facility] [place] [address], [facility] Potassium [Moles/Vol] 3.8 mmol/L Normal 3.5-5.1 [facility] Comment on above: Order Comment: No: D o not add to previous draw Performed By: #### 0 0071, 55172 ####[facility] [facility].[address] Sodium [Moles/Vol] 140 mmol/L Normal 136-145 [facility] Comment on above: Order Comment: No: D o not add to previous draw Performed By: #### 0 0071, 91076 ####[facility] [facility].[address] Urea nitrogen [Mass/Vol] 11 mg/dL Normal 7-25 [facility] Comment on above: Order Comment: No: D o not add to previous draw Performed By: #### 0 0071, 86245 ####[facility] CBC W/DIFFon 09-15-2020 ABS IMM GRANS 0.0 10*3/uL Normal 0.0-0.2 [facility] Comment on above: Order Comment: No: D o not add to previous draw Performed By: #### 0 0071, 56814, 83774 #### [facility] [address] [place] [address], [facility] ABS NEUTROPHILS 4.5 10*3/uL Normal 1.6-7.6 [facility] Comment on above: Order Comment: No: D o not add to previous draw Performed By: #### 0 0071, 56114, 69357 #### [facility] [address] [facility] [place] [place] [address], [facility] Basophils (Bld) [#/Vol] 0.0 10*3/uL Normal 0.0-0.2 [facility] Comment on above: Order Comment: No: D o not add to previous draw Performed By: #### 0 0071, 77841, 03912 #### [facility] [address] [place] [address], [facility] Basophils/100 WBC (Bld) 0.4 % Normal 0.0-1.0 [facility] Comment on above: Order Comment: No: D o not add to previous draw Performed By: #### 0 0071, 79497, 18109 #### [facility] [address] [place] [address], [place] Eosinophils (Bld) [#/Vol] 0.1 10*3/uL Normal 0.0-0.5 [facility] Comment on above: Order Comment: No: D o not add to previous draw Performed By: #### 0 0071, 37317, 90043 #### [facility] [address] [place] [address], [place] Eosinophils/100 WBC (Bld) 1.8 % Normal 0.0-6.0 [facility] Comment on above: Order Comment: No: D o not add to previous draw Performed By: #### 0 0071, 17689, 06980 #### [facility] [address] [place] [address], [place] Erythrocyte distribution width (RBC) [Ratio] 13.3 % Normal 11.5-15.0 [facility] Comment on above: Order Comment: No: D o not add to previous draw Performed By: #### 0 0071, 45774, 36501 #### [facility] [address] [place] [address], [place] Hematocrit (Bld) [Volume fraction] 42.1 % Normal 36.0-45.0 [facility] Comment on above: Order Comment: No: D o not add to previous draw Performed By: #### 0 0071, 81480, 70907 #### [facility] [address] [place] [address], [place] Hemoglobin (Bld) [Mass/Vol] 13.8 g/dL Normal 12.0-15.0 [facility] Comment on above: Order Comment: No: D o not add to previous draw Performed By: #### 0 0071, 31325, 67197 #### [facility] [address] IMMATURE GRANS 0.4 % Normal 0.0-1.0 [facility] Comment on above: Order Comment: No: D o not add to previous draw Performed By: #### 0 0071, 22514, 52693 #### [facility] [address] [place] [address], [facility] Lymphocytes (Bld) [#/Vol] 1.5 10*3/uL Normal 1.2-4.0 [facility] Comment on above: Order Comment: No: D o not add to previous draw Performed By: #### 0 0071, 35722, 71818 #### [facility] [address] [place] [address], [facility] Lymphocytes/100 WBC (Bld) 21.5 % Normal 20.0-45.0 [facility] Comment on above: Order Comment: No: D o not add to previous draw Performed By: #### 0 0071, 14062, 72809 #### [facility] [address] [place] [address], [facility] MCH (RBC) [Entitic mass] 29.8 pg Normal 27.0-33.0 [facility] Comment on above: Order Comment: No: D o not add to previous draw Performed By: #### 0 0071, 74687, 36692 #### [facility] [address] [place] [address], [facility] MCHC (RBC) [Mass/Vol] 32.8 g/dL Normal 32.0-35.0 [facility] Comment on above: Order Comment: No: D o not add to previous draw Performed By: #### 0 0071, 13498, 62371 #### [facility] [address] [place] [address], [facility] MCV (RBC) [Entitic vol] 90.9 fL Normal 82.0-98.0 [facility] Comment on above: Order Comment: No: D o not add to previous draw Performed By: #### 0 0071, 57301, 34207 #### [facility] [address] [place] [address], [facility] Monocytes (Bld) [#/Vol] 0.7 10*3/uL Normal 0.1-1.0 [facility] Comment on above: Order Comment: No: D o not add to previous draw Performed By: #### 0 0071, 89638, 82564 #### [facility] [address] [place] [address], [facility] MONOS 9.6 % Normal 5.0-12.0 [facility] Comment on above: Order Comment: No: D o not add to previous draw Performed By: #### 0 0071, 98905, 71581 #### [facility] [address] [place] [address], [facility] Neutrophils/100 WBC (Bld) 66.3 % Normal 40.0-72.0 [facility] Comment on above: Order Comment: No: D o not add to previous draw Performed By: #### 0 0071, 01420, 00036 #### [facility] [address] [place] [address], [facility] Nucleated RBC/100 WBC (Bld) [Ratio] 0 % Normal 0-0 [facility] Comment on above: Order Comment: No: D o not add to previous draw Performed By: #### 0 0071, 91634, 32173 #### [facility] [address] [place] [address], [place] PLAT CNT 253 10*3/uL Normal 150-400 [facility] Comment on above: Order Comment: No: D o not add to previous draw Performed By: #### 0 0071, 48790, 67220 #### [facility] [address] [place] [address], [place] RBC (Bld) [#/Vol] 4.63 10*6/uL Normal 3.80-5.00 [facility] Comment on above: Order Comment: No: D o not add to previous draw Performed By: #### 0 0071, 32291, 59279 #### [facility] [address] [place] [address], [facility] WBC (Bld) [#/Vol] 6.85 10*3/uL Normal 4.00-10.60 [facility] Comment on above: Order Comment: No: D o not add to previous draw Performed By: #### 0 0071, 60307, 95041 #### [facility] [address] POC GLUCOSE LABon 09-15-2020 Glucose [Mass/Vol] 122 mg/dL High 70-100 [facility] Comment on above: Performed By: #### 0 0071, 00096, 06376 #### [facility] [address] [facility] [address] Glucose [Mass/Vol] 175 mg/dL High 70-100 [facility] Comment on above: Performed By: #### 0 0071, 70724, 36688 #### [facility] [address] [facility] [address] TROPONIN-Ion 09-15-2020 Troponin I.cardiac [Mass/Vol] 0.12 ng/mL Critically high 0.00-0.04 [facility] Comment on above: Order Comment: No: D o not add to previous draw Result Comment: M-[place] EVIOUS CRITICAL RESULT REFERENCE RANGES: 0.00 - 0.04 ng/ml NORMAL 0.05 - 0.50 ng/ml INDETERMINATE > 0.50 ng/ml CONSISTENT WITH AN M.I. Performed By: #### 0 0071, 43031 ####[facility] UFH HEPARIN ASSAYon 09-16-19 21 UNFRACTIONATED HEPARIN 0.37 IU/mL Normal 0.30-0.70 Th e [facility] Comment on above: Result Comment: [place] roxaban and Apixaban will interfere with the anti Xa assay used to monitor UFH and LMWH. Performed By: #### 3 0477 ####[facility] [place] [address], [facility] BASIC METABOLIC PANELon 09-03 Calcium [Mass/Vol] 9.1 mg/dL Normal 8.6-10.3 [facility] Comment on above: Order Comment: No: D o not add to previous draw Performed By: #### 1 0070, 64591, 22543, 97526 ####[facility] [place] [address], [facility] Chloride [Moles/Vol] 104 mmol/L Normal 98-107 [facility] Comment on above: Order Comment: No: D o not add to previous draw Performed By: #### 1 0070, 48448, 40837, 47836 ####[facility] [facility] [place] [address], [facility] CO2 [Moles/Vol] 29 mmol/L Normal 21-31 [facility] Comment on above: Order Comment: No: D o not add to previous draw Performed By: #### 1 0070, 85436, 26000, 72359 ####[facility] [facility] [place] [address], [facility] Creatinine [Mass/Vol] 0.83 mg/dL Normal 0.60-1.20 The [facility] Comment on above: Order Comment: No: D o not add to previous draw Performed By: #### 1 0070, 69481, 15999, 13682 ####[facility] [facility] [place] [address], [facility] GFR/1.73 sq M.predicted among blacks MDRD (S/P/Bld) [Vol rate/Area] mL/min/{1.73_m2} Normal >60 The [facility] Comment on above: Order Comment: No: D o not add to previous draw Performed By: #### 1 0070, 63003, 67784, 95694 ####[facility] [place] [address], [facility] GFR/1.73 sq M.predicted among non-blacks MDRD (S/P/Bld) [Vol rate/Area] mL/min/{1.73_m2} Normal >60 The [facility] Comment on above: Order Comment: No: D o not add to previous draw Performed By: #### 1 0070, 98197, 18982, 98809 ####[facility] [place] [address], [facility] Glucose [Mass/Vol] 107 mg/dL High 70-100 The [facility] Comment on above: Order Comment: No: D o not add to previous draw Performed By: #### 1 0070, 36632, 49719, 32555 ####[facility] [facility] [place] [address], [facility] Potassium [Moles/Vol] 3.6 mmol/L Normal 3.5-5.1 The [facility] Comment on above: Order Comment: No: D o not add to previous draw Performed By: #### 1 0070, 92799, 57419, 66921 ####[facility] [facility] [place] [place] [address], [facility] Sodium [Moles/Vol] 138 mmol/L Normal 136-145 The [facility] Comment on above: Order Comment: No: D o not add to previous draw Performed By: #### 1 0070, 17204, 82449, 94134 ####[facility] [facility] [place] [address], [facility] Urea nitrogen [Mass/Vol] 10 mg/dL Normal 7-25 The [facility] Comment on above: Order Comment: No: D o not add to previous draw Performed By: #### 1 0070, 56163, 35662, 52704 ####[facility] [place] [address], [facility] CBC W/DIFFon 09-14-2020 ABS IMM GRANS 0.0 10*3/uL Normal 0.0-0.2 The [facility] Comment on above: Order Comment: No: D o not add to previous draw Performed By: #### 0 0071, 82277, 35782 #### [facility] [address] [place] [address], [facility] ABS NEUTROPHILS 3.2 10*3/uL Normal 1.6-7.6 The [facility] Comment on above: Order Comment: No: D o not add to previous draw Performed By: #### 0 0071, 34841, 28473 #### [facility] [address] [place] [address], [facility] Basophils (Bld) [#/Vol] 0.0 10*3/uL Normal 0.0-0.2 The [facility] Comment on above: Order Comment: No: D o not add to previous draw Performed By: #### 0 0071, 49103, 09921 #### [facility] [address] [place] [address], [facility] Basophils/100 WBC (Bld) 0.4 % Normal 0.0-1.0 The [facility] Comment on above: Order Comment: No: D o not add to previous draw Performed By: #### 0 0071, 64074, 26426 #### [facility] [address] [place] [address], [place] Eosinophils (Bld) [#/Vol] 0.2 10*3/uL Normal 0.0-0.5 The [facility] Comment on above: Order Comment: No: D o not add to previous draw Performed By: #### 0 0071, 03430, 06286 #### [facility] [address] [place] [address], [place] Eosinophils/100 WBC (Bld) 3.3 % Normal 0.0-6.0 The [facility] Comment on above: Order Comment: No: D o not add to previous draw Performed By: #### 0 0071, 90307, 51441 #### [facility] [address] [place] [address], [facility] Erythrocyte distribution width (RBC) [Ratio] 13.4 % Normal 11.5-15.0 The [facility] Comment on above: Order Comment: No: D o not add to previous draw Performed By: #### 0 0071, 99260, 26433 #### [facility] [address] [place] [address], [facility] Hematocrit (Bld) [Volume fraction] 42.5 % Normal 36.0-45.0 The [facility] Comment on above: Order Comment: No: D o not add to previous draw Performed By: #### 0 0071, 85838, 65423 #### [facility] [address] [place] [address], [facility] Hemoglobin (Bld) [Mass/Vol] 14.0 g/dL Normal 12.0-15.0 The [facility] Comment on above: Order Comment: No: D o not add to previous draw Performed By: #### 0 0071, 31912, 73497 #### [facility] [address] [facility] [place] [address], [facility] IMMATURE GRANS 0.2 % Normal 0.0-1.0 The [facility] Comment on above: Order Comment: No: D o not add to previous draw Performed By: #### 0 0071, 57605, 77602 #### [facility] [address] [facility] [place] [address], [facility] Lymphocytes (Bld) [#/Vol] 1.6 10*3/uL Normal 1.2-4.0 The [facility] Comment on above: Order Comment: No: D o not add to previous draw Performed By: #### 0 0071, 05994, 57972 #### [facility] [address] [place] [id number], [facility] Lymphocytes/100 WBC (Bld) 28.2 % Normal 20.0-45.0 The [facility] Comment on above: Order Comment: No: D o not add to previous draw Performed By: #### 0 0071, 50683, 04051 #### [facility] [address] [place] [address], [facility] MCH (RBC) [Entitic mass] 29.9 pg Normal 27.0-33.0 The [facility] Comment on above: Order Comment: No: D o not add to previous draw Performed By: #### 0 0071, 15494, 97671 #### [facility] [address] [place] [address], [facility] MCHC (RBC) [Mass/Vol] 32.9 g/dL Normal 32.0-35.0 The [facility] Comment on above: Order Comment: No: D o not add to previous draw Performed By: #### 0 0071, 03590, 45106 #### [facility] [address] [place] [address], [facility] MCV (RBC) [Entitic vol] 90.6 fL Normal 82.0-98.0 The [facility] Comment on above: Order Comment: No: D o not add to previous draw Performed By: #### 0 0071, 33121, 96114 #### [facility] [address] [place] [address], [facility] Monocytes (Bld) [#/Vol] 0.7 10*3/uL Normal 0.1-1.0 The [facility] Comment on above: Order Comment: No: D o not add to previous draw Performed By: #### 0 0071, 82096, 08715 #### [facility] [address] [place] [address], [facility] MONOS 11.6 % Normal 5.0-12.0 The [facility] Comment on above: Order Comment: No: D o not add to previous draw Performed By: #### 0 0071, 90685, 38927 #### [facility] [address] [place] [address], [facility] Neutrophils/100 WBC (Bld) 56.3 % Normal 40.0-72.0 The [facility] Comment on above: Order Comment: No: D o not add to previous draw Performed By: #### 0 0071, 21050, 15915 #### [facility] [address] [place] [address], [facility] Nucleated RBC/100 WBC (Bld) [Ratio] 0 % Normal 0-0 The [facility] Comment on above: Order Comment: No: D o not add to previous draw Performed By: #### 0 0071, 93750, 54869 #### [facility] [address] [place] [address], [facility] PLAT CNT 262 10*3/uL Normal 150-400 The [facility] Comment on above: Order Comment: No: D o not add to previous draw Performed By: #### 0 0071, 24090, 43177 #### [facility] [address] [facility] [place] [place] [address], [facility] RBC (Bld) [#/Vol] 4.69 10*6/uL Normal 3.80-5.00 The [facility] Comment on above: Order Comment: No: D o not add to previous draw Performed By: #### 0 0071, 47186, 86732 #### [facility] [address] [place] [id number], [facility] WBC (Bld) [#/Vol] 5.68 10*3/uL Normal 4.00-10.60 The [facility] Comment on above: Order Comment: No: D o not add to previous draw Performed By: #### 0 0071, 98853, 02184 #### [facility] [address] [place] [id number], [facility] MAGNESIUM BLOODon 09-14-2020 Magnesium [Mass/Vol] 2.1 mg/dL Normal 1.9-2.7 The [facility] Comment on above: Order Comment: No: D o not add to previous draw Performed By: #### 1 0070, 77550, 27242, 16903 ####[facility] [place] [address], [facility] PHOSPHORUS BLOODon Phosphate [Mass/Vol] 3.6 mg/dL Normal 2.5-5.0 [facility] Comment on above: Order Comment: No: D o not add to previous draw Performed By: #### 1 0070, 94424, 44826, 84218 ####[facility] [place] [address], [facility] POC GLUCOSE LABon 09-14-2020 Glucose [Mass/Vol] 134 mg/dL High 70-100 [facility] Comment on above: Performed By: #### 0 0071, 87270, 85740 #### [facility] [address] [place] [address], [facility] Glucose [Mass/Vol] 168 mg/dL High 70-100 The [facility] Comment on above: Performed By: #### 0 0071, 62757, 45384 #### [facility] [address] [place] [address], [facility] TROPONIN-Ion 09-14-2020 Troponin I.cardiac [Mass/Vol] 0.29 ng/mL Critically high 0.00-0.04 [facility] Comment on above: Result Comment: M-[place] EVIOUS CRITICAL RESULT REFERENCE RANGES: 0.00 - 0.04 ng/ml NORMAL 0.05 - 0.50 ng/ml INDETERMINATE > 0.50 ng/ml CONSISTENT WITH AN M.I. Performed By: #### 1 0070, 70964, 70978, 70071 ####[facility] [place] [address], [facility] UFH HEPARIN ASSAYon 09-15-19 21 UNFRACTIONATED HEPARIN 0.43 IU/mL Normal 0.30-0.70 Th e [facility] Comment on above: Result Comment: Fatou roxaban and Apixaban will interfere with the anti Xa assay used to monitor UFH and LMWH. Performed By: #### 0 0071, 62014, 09398 #### [facility] [address] [facility] UNFRACTIONATED HEPARIN 0.66 IU/mL Normal 0.30-0.70 Th e [facility] Comment on above: Result Comment: [place] roxaban and Apixaban will interfere with the anti Xa assay used to monitor UFH and LMWH. Performed By: #### 3 0477 ####[facility] [facility].[address] APTTon 09-13-2020 aPTT Coag (Bld) [Time] 30.6 s Normal 25.0-35.0 Th e [facility] Comment on above: Result Comment: ALL RESULTS [...] THIS PURPOSE. Performed By: #### 3 0477, 57905, 16523 ####[facility] BASIC METABOLIC PANELon 09-03 Calcium [Mass/Vol] 9.8 mg/dL Normal 8.6-10.3 The [facility] Comment on above: Order Comment: No: D o not add to previous draw Performed By: #### 1 0070, 55288, 21742, 98648 ####[facility] [facility] [place] [place] [address], [facility] Chloride [Moles/Vol] 104 mmol/L Normal 98-107 The [facility] Comment on above: Order Comment: No: D o not add to previous draw Performed By: #### 1 0070, 49074, 31948, 07629 ####[facility] [facility] [place] [place] [address], [facility] CO2 [Moles/Vol] 30 mmol/L Normal 21-31 The [facility] Comment on above: Order Comment: No: D o not add to previous draw Performed By: #### 1 0070, 08563, 36262, 53715 ####[facility] [place] [address], [place] Creatinine [Mass/Vol] 0.77 mg/dL Normal 0.60-1.20 The [facility] Comment on above: Order Comment: No: D o not add to previous draw Performed By: #### 1 0070, 08654, 77376, 56299 ####[facility] [place] [address], [place] GFR/1.73 sq M.predicted among blacks MDRD (S/P/Bld) [Vol rate/Area] mL/min/{1.73_m2} Normal >60 The [facility] Comment on above: Order Comment: No: D o not add to previous draw Performed By: #### 1 0070, 59410, 74092, 32246 ####[facility] [place] [address], [place] GFR/1.73 sq M.predicted among non-blacks MDRD (S/P/Bld) [Vol rate/Area] mL/min/{1.73_m2} Normal >60 The [facility] Comment on above: Order Comment: No: D o not add to previous draw Performed By: #### 1 0, 12358, 77424, 56417 ####[facility] [place] [address], [place] Glucose [Mass/Vol] 85 mg/dL Normal 70-100 The [facility] Comment on above: Order Comment: No: D o not add to previous draw Performed By: #### 1 0070, 07644, 15911, 78130 ####[facility] [place] [address], [place] Potassium [Moles/Vol] 4.2 mmol/L Normal 3.5-5.1 The [facility] Comment on above: Order Comment: No: D o not add to previous draw Performed By: #### 1 0070, 35339, 92509, 69534 ####[facility] [place] [address], [facility] Sodium [Moles/Vol] 141 mmol/L Normal 136-145 The [facility] Comment on above: Order Comment: No: D o not add to previous draw Performed By: #### 1 0070, 85820, 58420, 00144 ####[facility] [place] [address], [facility] Urea nitrogen [Mass/Vol] 10 mg/dL Normal 7-25 The [facility] Comment on above: Order Comment: No: D o not add to previous draw Performed By: #### 1 0070, 88765, 06739, 10362 ####[facility] [facility] CBC COMPLETE BLOOD COUNTon 0 - Erythrocyte distribution width (RBC) [Ratio] 13.4 % Normal 11.5-15.0 The [facility] Comment on above: Order Comment: No: D o not add to previous draw Performed By: #### 0 0071, 37182, 73734 #### [facility] [address] [place] [address], [facility] Hematocrit (Bld) [Volume fraction] 43.0 % Normal 36.0-45.0 The [facility] Comment on above: Order Comment: No: D o not add to previous draw Performed By: #### 0 0071, 82415, 81766 #### [facility] [address] [place] [address], [facility] Hemoglobin (Bld) [Mass/Vol] 14.0 g/dL Normal 12.0-15.0 The [facility] Comment on above: Order Comment: No: D o not add to previous draw Performed By: #### 0 0071, 26950, 50385 #### [facility] [address] MCH (RBC) [Entitic mass] 29.5 pg Normal 27.0-33.0 The [facility] Comment on above: Order Comment: No: D o not add to previous draw Performed By: #### 0 0071, 72685, 19525 #### [facility] [address] [facility] [address] MCHC (RBC) [Mass/Vol] 32.6 g/dL Normal 32.0-35.0 The [facility] Comment on above: Order Comment: No: D o not add to previous draw Performed By: #### 0 0071, 71604, 57977 #### [facility] [address] [facility]. [address] MCV (RBC) [Entitic vol] 90.7 fL Normal 82.0-98.0 The [facility] Comment on above: Order Comment: No: D o not add to previous draw Performed By: #### 0 0071, 68598, 21690 #### [facility] [address] [facility]. [address] Nucleated RBC/100 WBC (Bld) [Ratio] 0 % Normal 0-0 The [facility] Comment on above: Order Comment: No: D o not add to previous draw Performed By: #### 0 0071, 98680, 65905 #### [facility] [address] [facility] [place] [address], [facility] PLAT CNT 244 10*3/uL Normal 150-400 The [facility] Comment on above: Order Comment: No: D o not add to previous draw Performed By: #### 0 0071, 71769, 30109 #### [facility] [address] [place] [address], [facility] RBC (Bld) [#/Vol] 4.74 10*6/uL Normal 3.80-5.00 The [facility] Comment on above: Order Comment: No: D o not add to previous draw Performed By: #### 0 0071, 78082, 74370 #### [facility] [address] WBC (Bld) [#/Vol] 5.39 10*3/uL Normal 4.00-10.60 The [facility] Comment on above: Order Comment: No: D o not add to previous draw Performed By: #### 0 0071, 09906, 13427 #### [facility] [address] MAGNESIUM BLOODon 09-13-2020 Magnesium [Mass/Vol] 2.1 mg/dL Normal 1.9-2.7 The [facility] Comment on above: Order Comment: No: D o not add to previous draw Performed By: #### 1 0070, 46527, 10090, 92148 ####[facility] [facility].[address] PHOSPHORUS BLOODon 1 Phosphate [Mass/Vol] 4.0 mg/dL Normal 2.5-5.0 The [facility] Comment on above: Order Comment: No: D o not add to previous draw Performed By: #### 1 0070, 61611, 05063, 09214 ####[facility] [facility] PROTHROMBIN TIMEon 1 INR Coag (PPP) [Relative time] 0.92 {INR} Normal 0.91-1.16 The [facility] Comment on above: Result Comment: ACCC P [...] CHEST 1995;[id number]. Performed By: #### 3 0477, 40630, 21681 ####[facility] PT Coag (PPP) [Time] 12.4 s Normal 12.3-14.8 The [facility] Comment on above: Result Comment: ALL RESULTS MUST BE INTERPRETED WITH RESPECT TO BLOOD DRAWING ARTIFACT OR DILUTION ERROR OF ANTICOAGULANT AT THE TIME OF SAMPLING. Performed By: #### 3 0477, 10250, 13934 ####[facility] TROPONIN-Ion 09-13-2020 Troponin I.cardiac [Mass/Vol] 0.37 ng/mL Critically high 0.00-0.04 The [facility] Comment on above: Order Comment: No: D o not add to previous draw Result Comment: M-TR OPONIN INITIAL CRITICAL HIGH; RESPUN AND RETESTED M-CRITICAL RESULT(S) REVIEWED, CALLED TO AND READ BACK BY SHERRIE RUBIO RN AT 0792. REFERENCE RANGES: 0.00 - 0.04 ng/ml NORMAL 0.05 - 0.50 ng/ml INDETERMINATE > 0.50 ng/ml CONSISTENT WITH AN M.I. Performed By: #### 1 0070, 43053, 88754, 00516 ####[facility] UFH HEPARIN ASSAYon 09-14-19 21 UNFRACTIONATED HEPARIN <0.10 Critically low 0.30-0.70 The [facility] Comment on above: Result Comment: Fatou roxaban and Apixaban will interfere with the anti Xa assay used to monitor UFH and LMWH. RESULTS CHECKED AND CALLED. ACCURATELY READ BACK BY Sherrie Rubio RN at 2228. Performed By: #### 3 0477, 97195, 42172 ####[facility] CBC COMPLETE BLOOD COUNTon 0 11-10-2019 Erythrocyte distribution width (RBC) [Ratio] 13.5 % Normal 11.5-15.0 The [facility] Comment on above: Order Comment: No: D o not add to previous draw Performed By: #### 0 0071, 23204, 77348 #### [facility] [address] Hematocrit (Bld) [Volume fraction] 36.2 % Normal 36.0-45.0 The [facility] Comment on above: Order Comment: No: D o not add to previous draw Performed By: #### 0 0071, 42709, 29321 #### [facility] [address] [facility] Hemoglobin (Bld) [Mass/Vol] 12.1 g/dL Normal 12.0-15.0 The [facility] Comment on above: Order Comment: No: D o not add to previous draw Performed By: #### 0 0071, 39016, 16383 #### [facility] [address] [facility] MCH (RBC) [Entitic mass] 30.0 pg Normal 27.0-33.0 The [facility] Comment on above: Order Comment: No: D o not add to previous draw Performed By: #### 0 0071, 43367, 62614 #### [facility] [address] [facility] [place] [address], [facility] MCHC (RBC) [Mass/Vol] 33.4 g/dL Normal 32.0-35.0 The [facility] Comment on above: Order Comment: No: D o not add to previous draw Performed By: #### 0 0071, 66330, 75848 #### [facility] [address] [place] [address], [facility] MCV (RBC) [Entitic vol] 89.6 fL Normal 82.0-98.0 The [facility] Comment on above: Order Comment: No: D o not add to previous draw Performed By: #### 0 0071, 05770, 95492 #### [facility] [address] [place] [address], [facility] Nucleated RBC/100 WBC (Bld) [Ratio] 0 % Normal 0-0 The [facility] Comment on above: Order Comment: No: D o not add to previous draw Performed By: #### 0 0071, 99756, 50616 #### [facility] [address] [facility] [place] [address], [facility] PLAT CNT 229 10*3/uL Normal 150-400 The [facility] Comment on above: Order Comment: No: D o not add to previous draw Performed By: #### 0 0071, 23022, 64312 #### [facility] [address] [facility] [place] [address], [facility] RBC (Bld) [#/Vol] 4.04 10*6/uL Normal 3.80-5.00 The [facility] Comment on above: Order Comment: No: D o not add to previous draw Performed By: #### 0 0071, 50489, 39217 #### [facility] [address] [facility] [place] [id number], [facility] WBC (Bld) [#/Vol] 6.91 10*3/uL Normal 4.00-10.60 The [facility] Comment on above: Order Comment: No: D o not add to previous draw Performed By: #### 0 0071, 06005, 93119 #### [facility] [address] [place] [id number], [facility] COMP METABOLIC PANELon 11-09 Albumin [Mass/Vol] 3.4 g/dL Low 3.5-5.7 The [facility] Comment on above: Order Comment: No: D o not add to previous draw Performed By: #### 0 0121 #### [facility] [address] [place] [address], [place] ALKALINE PHOSPH 65 IU/L Normal 34-104 The [facility] Comment on above: Order Comment: No: D o not add to previous draw Performed By: #### 0 0121 #### [facility] [address] [place] [address], [place] ALT [Catalytic activity/Vol] 12 U/L Normal 7-52 The [facility] Comment on above: Order Comment: No: D o not add to previous draw Performed By: #### 0 0121 #### [facility] [address] [place] [address], [place] AST [Catalytic activity/Vol] 16 U/L Normal 13-39 The [facility] Comment on above: Order Comment: No: D o not add to previous draw Performed By: #### 0 0121 #### [facility] [address] [place] [address], [place] Bilirubin [Mass/Vol] 0.3 mg/dL Normal 0.3-1.0 The [facility] Comment on above: Order Comment: No: D o not add to previous draw Performed By: #### 0 0121 #### [facility] [address] [place] [address], [place] Calcium [Mass/Vol] 8.6 mg/dL Normal 8.6-10.3 The [facility] Comment on above: Order Comment: No: D o not add to previous draw Performed By: #### 0 0121 #### [facility] [address] [place] [address], [place] Chloride [Moles/Vol] 107 mmol/L Normal 98-107 The [facility] Comment on above: Order Comment: No: D o not add to previous draw Performed By: #### 0 0121 #### [facility] [address] [place] [address], [facility] CO2 [Moles/Vol] 25 mmol/L Normal 21-31 The [facility] Comment on above: Order Comment: No: D o not add to previous draw Performed By: #### 0 0121 #### [facility] [address] [place] [address], [place] Creatinine [Mass/Vol] 0.72 mg/dL Normal 0.60-1.20 The [facility] Comment on above: Order Comment: No: D o not add to previous draw Performed By: #### 0 0121 #### [facility] [address] [place] [address], [place] GFR/1.73 sq M.predicted among blacks MDRD (S/P/Bld) [Vol rate/Area] mL/min/{1.73_m2} Normal >60 The [facility] Comment on above: Order Comment: No: D o not add to previous draw Performed By: #### 0 0121 #### [facility] [address] [place] [address], [place] GFR/1.73 sq M.predicted among non-blacks MDRD (S/P/Bld) [Vol rate/Area] mL/min/{1.73_m2} Normal >60 The [facility] Comment on above: Order Comment: No: D o not add to previous draw Performed By: #### 0 0121 #### [facility] [address] [place] [address], [place] Glucose [Mass/Vol] 117 mg/dL High 70-100 The [facility] Comment on above: Order Comment: No: D o not add to previous draw Performed By: #### 0 0121 #### [facility] [address] [place] [address], [place] Potassium [Moles/Vol] 3.5 mmol/L Normal 3.5-5.1 The [facility] Comment on above: Order Comment: No: D o not add to previous draw Performed By: #### 0 0121 #### [facility] [address] [place] [address], [place] Protein [Mass/Vol] 5.9 g/dL Low 6.0-8.3 The [facility] Comment on above: Order Comment: No: D o not add to previous draw Performed By: #### 0 0121 #### [facility] [address] [place] [address], [place] Sodium [Moles/Vol] 138 mmol/L Normal 136-145 The [facility] Comment on above: Order Comment: No: D o not add to previous draw Performed By: #### 0 0121 #### [facility] [address] [place] [address], [place] Urea nitrogen [Mass/Vol] 14 mg/dL Normal 7-25 The [facility] Comment on above: Order Comment: No: D o not add to previous draw Performed By: #### 0 0121 #### [facility] [address] [place] [address], [place] BASIC METABOLIC PANELon 08-0 6-2020 Calcium [Mass/Vol] 9.6 mg/dL Normal 8.6-10.3 The [facility] Comment on above: Performed By: #### 0 0071, [id number], [id number] #### [facility] [address] [place] [address], [place] Chloride [Moles/Vol] 103 mmol/L Normal 98-107 The [facility] Comment on above: Performed By: #### 0 0071, [id number], [id number] #### [facility] [address] [place] [address], [place] CO2 [Moles/Vol] 28 mmol/L Normal 21-31 The [facility] Comment on above: Performed By: #### 0 0071, [id number], [id number] #### [facility] [address] [place] [address], [place] Creatinine [Mass/Vol] 0.77 mg/dL Normal 0.60-1.20 The [facility] Comment on above: Performed By: #### 0 0071, 98414, 49032 #### [facility] [address] [place] [address], [place] GFR/1.73 sq M.predicted among blacks MDRD (S/P/Bld) [Vol rate/Area] mL/min/{1.73_m2} Normal >60 The [facility] Comment on above: Performed By: #### 0 0071, [id number], 91589 #### [facility] [address] [place] [address], [place] GFR/1.73 sq M.predicted among non-blacks MDRD (S/P/Bld) [Vol rate/Area] mL/min/{1.73_m2} Normal >60 The [facility] Comment on above: Performed By: #### 0 0071, [id number], 61415 #### [facility] [address] [place] [address], [place] Glucose [Mass/Vol] 116 mg/dL High 70-100 The [facility] Comment on above: Performed By: #### 0 0071, [id number], 42624 #### [facility] [address] [place] [address], [place] Potassium [Moles/Vol] 3.7 mmol/L Normal 3.5-5.1 The [facility] Comment on above: Performed By: #### 0 0071, 87013, 58003 #### [facility] [address] [place] [address], [place] Sodium [Moles/Vol] 139 mmol/L Normal 136-145 The [facility] Comment on above: Performed By: #### 0 0071, 80963, 28649 #### [facility] [address] [place] [address], [place] Urea nitrogen [Mass/Vol] 14 mg/dL Normal 7-25 The [facility] Comment on above: Performed By: #### 0 0071, 36930, 80070 #### [facility] [address] CBC COMPLETE BLOOD COUNTon 11-09-2019 Erythrocyte distribution width (RBC) [Ratio] 13.5 % Normal 11.5-15.0 The [facility] Comment on above: Performed By: #### 5 0608 ####[facility] Hematocrit (Bld) [Volume fraction] 42.5 % Normal 36.0-45.0 The [facility] Comment on above: Performed By: #### 5 0608 ####[facility] Hemoglobin (Bld) [Mass/Vol] 13.9 g/dL Normal 12.0-15.0 The [facility] Comment on above: Performed By: #### 5 0608 ####[facility] MCH (RBC) [Entitic mass] 29.6 pg Normal 27.0-33.0 The [facility] Comment on above: Performed By: #### 5 0608 ####[facility] MCHC (RBC) [Mass/Vol] 32.7 g/dL Normal 32.0-35.0 The [facility] Comment on above: Performed By: #### 5 0608 ####[facility] MCV (RBC) [Entitic vol] 90.4 fL Normal 82.0-98.0 The [facility] Comment on above: Performed By: #### 5 0608 ####[facility] Nucleated RBC/100 WBC (Bld) [Ratio] 0 % Normal 0-0 The [facility] Comment on above: Performed By: #### 5 0608 ####[facility] PLAT CNT 292 10*3/uL Normal 150-400 The [facility] Comment on above: Performed By: #### 5 0608 ####[facility] RBC (Bld) [#/Vol] 4.70 10*6/uL Normal 3.80-5.00 The [facility] Comment on above: Performed By: #### 5 0608 ####[facility] WBC (Bld) [#/Vol] 9.92 10*3/uL Normal 4.00-10.60 The [facility] Comment on above: Performed By: #### 5 0608 ####[facility] Cardiovascular Lab Reporton 11-09-2019 Cardiovascular Lab Report [facility] Patient Name: Aurelio [facility] Silvia Neumann MR #: [id number] Department of Physician: Adalid Ennis Omar Keyes M.D. Division of Service Date: 11/09/2019 Cardiology Birthdate: 1970 Adult Cardiovascular Room #: [facility] [address] [address] Cardiovascular Laboratory Report INDICATIONS: The patient is [...] signed informed consent. She was brought to labor expediter in a fasting state. Both groin areas were prepped and draped in usual fashion. Using ultrasound guidance and micropuncture technique, the right and left common femoral veins were accessed and a 6-Persian x 11 cm sheath was placed on the right and 11-Persian x 11 cm sheath was placed on the left. Heparin was given intravenously and therapeutic ACT confirmed during the rest of the procedure. A AcuNav 10-Persian intracardiac echocardiography catheter was advanced through the left femoral venous access and used to perform baseline imaging of the cardiac structures with identification of the interatrial septum and measurement of the rims. A 6-Persian multipurpose catheter was advanced over a J-tipped wire and under fluoroscopy and intracardiac echocardiography guidance, the patent foramen ovale was crossed and a wire was advanced to the left superior pulmonary vein. Position was confirmed by pulmonary venous angiography. The catheter was advanced and then used to place an exchange length J-tipped Amplatz Super Stiff wire over which the 9-Persian Amplatzer delivery sheath was advanced to the [...] The delivery sheath was exchanged to a 9-Persian x 11 cm sheath. The intracardiac echocardiography [...] Keyes M.D. Date Trans: 11/09/2019 11:14 A/mario [id number] cc: Debi Leon D.O. [facility] [address] [facility] [address] [place] [address] Dariusz Keen M.D. [address] [place] [address] The [facility] Vital Signs Date Time Vital Sign Value Performing Clinician Ivett cerda 05-17-2024 09:140500 Body height 162.56 cm [facility] 05-17-2024 09:140500 Body mass index (BMI) [Ratio] 35 kg/m2 [facility] 05-17-2024 09:140500 Body weight 92.53 kg [facility] 05-17-2024 09:14-0500 Diastolic blood pressure 86 mm[Hg] [facility] 05-17-2024 09:14-0500 Heart rate 57 /min [facility] 05-17-2024 09:14-0500 Systolic blood pressure 154 mm[Hg] [facility] 05-13-2024 09:45-0500 Diastolic blood pressure 78 mm[Hg] [facility] 05-13-2024 09:45-0500 Systolic blood pressure 142 mm[Hg] [facility] 05-13-2024 09:04-0500 Body height 162.56 cm [facility] 05-13-2024 09:04-0500 Body mass index (BMI) [Ratio] 35.2 kg/m2 [facility] 05-13-2024 09:04-0500 Body temperature 98 [degF] [facility] 05-13-2024 09:04-0500 Body weight 93.15 kg [facility] 05-13-2024 09:04-0500 Heart rate 74 /min [facility] 05-13-2024 09:04-0500 Respiratory rate 16 /min [facility] 05-13-2024 09:04-0500 SaO2% (BldA) [Mass fraction] 98 % [facility] 02-29-2024 08:39-0500 Body height 162.56 cm [facility] 02-29-2024 08:39-0500 Body mass index (BMI) [Ratio] 36.3 kg/m2 [facility] 02-29-2024 08:39-0500 Body weight 96.16 kg [facility] 02-29-2024 08:39-0500 Diastolic blood pressure 96 mm[Hg] [facility] 02-29-2024 08:39-0500 Heart rate 60 /min [facility] 02-29-2024 08:39-0500 Systolic blood pressure 167 mm[Hg] [facility] 12-28-2023 12:46-0400 Body height 162.56 cm [facility] 12-28-2023 12:46-0400 Body mass index (BMI) [Ratio] 35.9 kg/m2 [facility] 12-28-2023 12:46-0400 Body temperature 97.3 [degF] [facility] 12-28-2023 12:46-0400 Body weight 94.8 kg [facility] 12-28-2023 12:46-0400 Diastolic blood pressure 100 mm[Hg] [facility] 12-28-2023 12:46-0400 Heart rate 82 /min [facility] 12-28-2023 12:46-0400 Respiratory rate 16 /min [facility] 12-28-2023 12:46-0400 SaO2% (BldA) [Mass fraction] 98 % [facility] 12-28-2023 12:46-0400 Systolic blood pressure 176 mm[Hg] [facility] 10-11-2023 13:18-0400 Diastolic blood pressure 100 mm[Hg] Michelet Velázquez [facility] 10-11-2023 13:18-0400 Heart rate 64 /min Michelet Velázquez [facility] 10-11-2023 13:18-0400 Respiratory rate 18 /min Michelet Velázquez [facility] 10-11-2023 13:18-0400 SaO2% (BldA) [Mass fraction] 96 % Michelet Velázquez [facility] 10-11-2023 13:18-0400 Systolic blood pressure 180 mm[Hg] Michelet Velázquez [facility] 10-11-2023 09:52-0400 Body height 162.56 cm [facility] 10-11-2023 09:52-0400 Body mass index (BMI) [Ratio] 35.5 kg/m2 [facility] 10-11-2023 09:52-0400 Body weight 93.89 kg [facility] 10-11-2023 09:52-0400 Diastolic blood pressure 92 mm[Hg] [facility] 10-11-2023 09:52-0400 Heart rate 57 /min [facility] 10-11-2023 09:52-0400 Systolic blood pressure 165 mm[Hg] [facility] 09-14-2023 10:06-0400 Body height 162.56 cm [facility] 09-14-2023 10:06-0400 Body mass index (BMI) [Ratio] 36 kg/m2 [facility] 09-14-2023 10:06-0400 Body weight 95.25 kg [facility] 08-31-2023 08:35-0400 Body height 162.56 cm [facility] 08-31-2023 08:35-0400 Body mass index (BMI) [Ratio] 36 kg/m2 [facility] 08-31-2023 08:35-0400 Body weight 95.25 kg [facility] 08-31-2023 08:35-0400 Diastolic blood pressure 83 mm[Hg] [facility] 08-31-2023 08:35-0400 Heart rate 61 /min [facility] 08-31-2023 08:35-0400 Systolic blood pressure 148 mm[Hg] [facility] 03-22-2023 07:14-0500 Blood Pressure Location Jairo Christofferson [facility] 03-22-2023 07:14-0500 Diastolic blood pressure 94 mm[Hg] Jairo Christofferson [facility] 03-22-2023 07:14-0500 Heart rate 66 /min Jairo Christofferson [facility] 03-22-2023 07:14-0500 Respiratory rate 16 /min Jairo Christofferson [facility] 03-22-2023 07:14-0500 SaO2% (BldA) [Mass fraction] 98 % Jairo Christofferson [facility] 03-22-2023 07:14-0500 Systolic blood pressure 153 mm[Hg] Jairo Christofferson [facility] 03-19-2023 12:54-0500 Blood Pressure Location Jairo Christofferson [facility] 03-19-2023 12:54-0500 Diastolic blood pressure 100 mm[Hg] Jairo Christofferson [facility] 03-19-2023 12:54-0500 Heart rate 71 /min Jairo Christofferson [facility] 03-19-2023 12:54-0500 SaO2% (BldA) [Mass fraction] 97 % [facility] Christofferson [facility] 03-19-2023 12:54-0500 Systolic blood pressure 190 mm[Hg] Jairo Contreras [facility] 03-18-2023 13:15-0500 Body height 162.56 cm Benson Romero Other [employer] Other 03-18-2023 13:15-0500 Body mass index (BMI) [Ratio] 36.21 kg/m2 Benson Romero Other [employer] Other 03-18-2023 13:15-0500 Body weight 95.71 kg Benson Romero Other [employer] Other 03-18-2023 13:15-0500 Diastolic blood pressure 88 mm[Hg] Benson Romero Other [employer] Other 03-18-2023 13:15-0500 SaO2% (BldA) [Mass fraction] 97 % Benson Romero Other [employer] Other 03-18-2023 13:15-0500 Systolic blood pressure 143 mm[Hg] Benson Romero Other [employer] Other 12-01-2022 13:00-0400 Body height 162.56 cm Benson Romero Other [employer] Other 12-01-2022 13:00-0400 Body mass index (BMI) [Ratio] 34.67 kg/m2 Benson Romero Other [employer] Other 12-01-2022 13:00-0400 Body weight 91.63 kg Benson Romero Other [employer] Other 12-01-2022 13:00-0400 Diastolic blood pressure 81 mm[Hg] Benson Hannah Other [facility] [employer] Other 12-01-2022 13:00-0400 Systolic blood pressure 148 mm[Hg] Benson Hannah Other [facility] [employer] Other 09-24-2022 12:51-0400 Diastolic blood pressure 122 mm[Hg] Jairo Christofferson [facility] 09-24-2022 12:51-0400 Mean blood pressure 148 mm[Hg] Jairo Christofferson [facility] 09-24-2022 12:51-0400 Systolic blood pressure 201 mm[Hg] Jairo Christofferson [facility] 09-24-2022 12:42-0400 Blood Pressure Location Jairo Christofferson [facility] 09-24-2022 12:42-0400 Diastolic blood pressure 110 mm[Hg] Jairo Christofferson [facility] 09-24-2022 12:42-0400 Heart rate 76 /min Jairo Christofferson [facility] 09-24-2022 12:42-0400 Respiratory rate 18 /min Jairo Christofferson [facility] 09-24-2022 12:42-0400 SaO2% (BldA) [Mass fraction] 96 % [facility] Christofferson [facility] 09-24-2022 12:42-0400 Systolic blood pressure 198 mm[Hg] Jairo Christofferson [facility] 04-08-2022 09:16-0500 Blood Pressure Location Jairo Christofferson [facility] 04-08-2022 09:16-0500 Body temperature 98.24 [degF] [facility] Christofferson [facility] 04-08-2022 09:16-0500 Diastolic blood pressure 105 mm[Hg] Jairo Christofferson [facility] 04-08-2022 09:16-0500 Heart rate 76 /min Jairo Christofferson [facility] 04-08-2022 09:16-0500 Respiratory rate 16 /min Jairo Christofferson [facility] 04-08-2022 09:16-0500 SaO2% (BldA) [Mass fraction] 98 % [facility] Christofferson [facility] 04-08-2022 09:16-0500 Systolic blood pressure 197 mm[Hg] Jairo Christofferson [facility] 04-02-2022 13:48-0500 Diastolic blood pressure 122 mm[Hg] Jairo Christofferson [facility] 04-02-2022 13:48-0500 Mean blood pressure 143 mm[Hg] Jairo Christofferson [facility] 04-02-2022 13:48-0500 Systolic blood pressure 186 mm[Hg] Jairo Christofferson [facility] 04-02-2022 13:32-0500 Blood Pressure Location Jairo Christofferson [facility] 04-02-2022 13:32-0500 Diastolic blood pressure 112 mm[Hg] Jairo Christofferson [facility] 04-02-2022 13:32-0500 Heart rate 80 /min Jairo Christofferson [facility] 04-02-2022 13:32-0500 Respiratory rate 18 /min Jairo Christofferson [facility] 04-02-2022 13:32-0500 SaO2% (BldA) [Mass fraction] 98 % Jairo Contreras [facility] 04-02-2022 13:32-0500 Systolic blood pressure 183 mm[Hg] Jairo Contreras [facility] 03-19-2021 09:13-0500 Diastolic blood pressure 98 mm[Hg] Dariusz Keen Work Phone: [facility] DO Work Phone: 03-19-2021 09:13-0500 Systolic blood pressure 140 mm[Hg] Dariusz Keen Work Phone: [facility] DO Work Phone: 03-19-2021 08:57-0500 Body height 162.56 cm Dariusz Keen Work Phone: [facility] DO Work Phone: 03-19-2021 08:57-0500 Body mass index (BMI) [Ratio] 36.39 kg/m2 Dariusz Alvarezight Work Phone: [facility] DO Work Phone: 03-19-2021 08:57-0500 Body surface area Derived from formula 2.01 m2 Dariusz Keen Work Phone: [facility] DO Work Phone: 03-19-2021 08:57-0500 Body weight 96.16 kg Dariusz Keen Work Phone: [facility] DO Work Phone: 03-19-2021 08:57-0500 Diastolic blood pressure 101 mm[Hg] Dariusz Keen Work Phone: [facility] DO Work Phone: 03-19-2021 08:57-0500 Heart rate 74 /min Dariusz Keen Work Phone: [facility] DO Work Phone: 03-19-2021 08:57-0500 Systolic blood pressure 170 mm[Hg] Dariusz Jenna Osmani Work Phone: [facility] DO Work Phone: Encounters Encounter Date Encounter Type Care Provider Facility Start: 12-22-2024 ambulatory [place]helet Velázquez [place] [place]: 12-16-2024 End: 12-16-2024 Emergency department patient visit Gerry Ghmai [place] Start: 05-17-2024 End: 05-17-2024 ambulatory [facility] Work Phone: Start: 05-17-2024 End: 05-17-2024 Patient encounter procedure [facility] Work Phone: Start: 05-13-2024 End: 05-13-2024 ambulatory [facility] Work Phone: Start: 05-13-2024 End: 05-13-2024 Patient encounter procedure [facility]ician [facility] Work Phone: Start: 03-14-2024 Non-patient / Non-visit [facility]ician [facility] [employer] Work Phone: Start: 02-29-2024 End: 02-29-2024 Patient encounter procedure [facility] Work Phone: Start: 02-22-2024 Non-patient / Non-visit [facility] Work Phone: Start: 12-28-2023 End: 12-28-2023 ambulatory [facility] Work Phone: Start: 12-28-2023 End: 12-28-2023 Patient encounter procedure [facility] Work Phone: Start: 10-11-2023 End: 10-11-2023 Patient encounter procedure Michelet Velázquez [facility] Start: 10-11-2023 End: 10-11-2023 ambulatory [facility] Work Phone: Start: 10-11-2023 End: 10-11-2023 Patient encounter procedure [facility] Work Phone: Start: 09-14-2023 End: 09-14-2023 ambulatory [facility] Work Phone: Start: 09-14-2023 End: 09-14-2023 Patient encounter procedure [facility] Physician [facility] Work Phone: Start: 08-31-2023 End: 08-31-2023 ambulatory [facility] Work Phone: Start: 08-31-2023 End: 08-31-2023 Patient encounter procedure [facility] Work Phone: Start: 04-06-2023 End: 04-06-2023 ambulatory Benson Romero Other [employer] Other Start: 04-06-2023 Telephone encounter Benson Romero [facility] Start: 03-22-2023 End: 03-22-2023 Admission to same day surgery center Jairo Contreras [facility] Start: 03-19-2023 End: 03-19-2023 Patient encounter procedure Jairo Contreras [facility] Start: 03-18-2023 End: 03-18-2023 ambulatory Benson Romero Other [employer] Other Start: 03-18-2023 Patient encounter procedure Benson Romero [facility] Start: 12-23-2022 End: 12-23-2022 ambulatory Benson Romero Other [employer] Other Start: 12-23-2022 Telephone encounter Benson Romero [facility] Start: 12-01-2022 End: 12-01-2022 ambulatory Benson Romero Other [facility] [employer] Other Start: 12-01-2022 Office outpatient ne w 45 minutes Benson Romero [facility] Start: 10-12-2022 End: 10-12-2022 Patient encounter procedure Jairo Contreras [facility] Start: 09-24-2022 End: 09-24-2022 Patient encounter procedure Jairo Contreras [facility] Start: 05-11-2022 End: 05-11-2022 Patient encounter procedure Jairo Contreras [facility] Start: 04-28-2022 End: 04-29-[address] DARIUSZ KEEN . Facility:[facility] Start: 04-08-2022 End: 04-08-2022 Admission to same day surgery center Jairo Contreras [facility] Start: 04-07-2022 End: 04-08-[address] DARIUSZ KEEN . Facility:[facility] Start: 04-02-2022 End: 04-02-2022 Patient encounter procedure Jairo Contreras [facility] Start: 04-01-2022 End: 04-02-[address] DARIUSZ KEEN . Facility:[facility] Start: 12-02-2021 End: 12-03-[address] DARIUSZ KEEN . Facility:[facility] Start: 10-22-2021 Rx Renewal Dariusz Keen Work Phone: [facility] DO Work Phone: Start: 10-08-2021 End: 10-09-2021 ambulatory ROBI ELDER Facility: Start: 08-25-2021 End: 08-26-[address] DRAIUSZ KEEN . Facility:[facility] Start: 08-15-2021 End: 08-16-[address] DARIUSZ KEEN . Facility:[facility] Start: 07-29-2021 End: 07-30-[address] ANIKA WHALEY Facility:[facility] Start: 07-23-2021 End: 07-31-[address] DARIUSZ KEEN . Facility: Start: 07-08-2021 Rx Renewal Dariusz Jenna Osmani Work Phone: [facility] DO Work Phone: Start: 04-10-2021 Rx Renewal Dariusz Jenna Osmani Work Phone: [facility] DO Work Phone: Start: 03-19-2021 Office outpatient vi sit 25 minutes Dariusz Jenna Keen Work Phone: [facility] DO Work Phone: Start: 09-13-2020 End: 09-17-2020 Evaluation and management of inpatient DARIUSZ KEEN Facility:[facility] Start: 11-09-2019 End: 11-10-2019 ambulatory DARIUSZ KEEN Facility:[facility] Echocardiogram normal Dariusz Marshall ht Work Phone: [facility] DO Work Phone: Procedures Date Procedure Procedure Detail Performing Clinician Start: 05-13-2024 Quick Strep (POC) Start: 12-28-2023 COVID Antigen (POC) Start: 12-28-2023 Quick Strep (POC) Start: 03-22-2023 Catheterization of left heart Jairo Contreras Start: 04-08-2022 Catheterization of left heart Jairo Contreras Start: 04-08-2022 Percutaneous coronary intervention of anterior descending branch of left coronary artery Jairo Contreras Start: 09-16-2020 Fluoroscopy of Left Heart using Low Osmolar Contrast [facility] [place] Start: 09-16-2020 FLUOROSCOPY OF MULT COR ART USING L OSM CONTRAST [facility] [place] Start: 09-16-2020 MEASURE OF CARDIAC SAMPL \T\ PRESSURE, L HEART, PERC APPROACH [facility] [place] Start: 09-16-2020 ULTRASONOGRAPHY OF RIGHT AND LEFT HEART, TRANSESOPHAGEAL SAMER Vlad AGGARWAL Appendectomy Jairo phillipon section Dariusz guido Work Phone: section Jairo burnham Cholecystectomy Dariusz Keen Work Phone: Closure of patent fo ramen ovale Dariusz Keen Work Phone: Colposcope, device (physical object) Jairo Víctorzidao Gallbladder structur e (body structure) Jairo Candelariadao Hysterectomy Dariusz Keen Work Phone: Oophorectomy Jairo cunha Operation on ovary Dariusz Friend ght Work Phone: Total colonoscopy Dariusz Marshall ht Work Phone: Plan of Treatment Date Care Activity Detail Author Start: 11-06-2021 FUV, Provider: Navdeep German, Status: Pen, Time: 10:30 AM FUV, Provider: Navdeep German, Status: Pen, Time: 10:30 AM [facility]ast[facility]ya 250 DO Work Phone: Start: 04-08-2021 FUV, Provider: Navdeep German, Status: Pen, Time: 11:15 AM FUV, Provider: Navdeep German, Status: Pen, Time: 11:15 AM [facility]-[place] 250 DO Work Phone: Comprehensive metabo lic 1999 panel - Serum or Plasma [facility] Comprehensive metabo lic 1999 panel - Serum or Plasma [facility] Patient Education [facility] Work Phone: XR Knee - left 4 Views [facility] Immunizations Immunization Date Immunization Notes Care Provider Fa cility 01-10-2021 Moderna COVID-19 Vac cine 100 MCG/0.5ML Intramuscular Suspension Dariusz Keen Work Phone: [facility] 12-13-2020 Moderna COVID-19 Vac cine 100 MCG/0.5ML Intramuscular Suspension Dariusz Keen Work Phone: [facility] Payers Date Payer Category Payer Unknown [id number] 2.16.8 [id number] 1970 Unknown [id number] 2.16.8 [id number] 1972 Unknown [id number] 2.16.84 [id number] 1972 Unknown [id number] 2.16.84 [id number] 1972 Unknown [id number] 2.16.84 [id number] 1972 Unknown [id number] 2.16.84 [id number] 1972 Unknown [id number] 2.16.84 [id number] 1972 Unknown [id number] 2.16.84 [id number] 1972 Unknown [id number] 2.16.84 [id number] 1972 Unknown [id number] 2.16.84 [id number] 1972 Unknown [id number] 2.16.84 [id number] 1972 Unknown [id number] 2.16.8 [id number] 1957 Medicaid [id number] 1957 Medicare [id number] Medicaid [id number] Self-pay Self Pay [id number] Unknown Social History Date Type Detail Facility No alcohol use No alcohol use [facility] 250 DO Work Phone: Comment on above: 1 pepsi daily.; Start: 04-02-2022 End: 03-18-2023 Tobacco smoking status Never smoked tobacco (finding) [facility] Tobacco smoking status Never [facility] Sex Assigned At Female [facility] Start: 1970 Sex Assigned At Female [facility] Start: 05-13-2024 End: 05-17-2024 Sex Female (finding) [facility] Medical Equipment Procedure Code Equipment Code Equipment [...] Assessment Result Facility 10-11-2023 Functional Status N/A [facility] 03-22-2023 Functional Status N/A [facility] 03-19-2023 Functional Status N/A [facility] 09-24-2022 Functional Status No [facility] 04-08-2022 Functional Status N/A [facility] 04-02-2022 Functional Status No [facility] Clinical Notes 09-17-2020 to 12-16-2024 Note Date & Type Note Facility 12-16-2024 Note ED Patient Education Note Dentistry Dental Extraction, Care After After a dental extraction, it is common to have: ??? Mild bleeding from the socket where the tooth was taken out. ??? Pain and swelling for a few days. ??? Numbness for a few hours if you were given numbing medicine. ??? Bruising on the jaw or cheeks. ??? A feeling of being tired or sleepy. Follow these instructions at home: Medicines ??? Take unqt-jvw-vrceceo and prescription medicines only as told by your health care provider. ??? If you were prescribed antibiotics, take them as told by your provider. Do not stop using the antibiotic even if you start to feel better. ??? Ask your provider if the medicine prescribed to you: ? Requires you to avoid driving or using machinery. ? Can cause constipation. You may need to take these actions to prevent or treat constipation: ? Drink enough fluid to keep your pee (urine) pale yellow. ? Take eazv-gdr-pdqdfuj or prescription medicines. ? Eat foods that are high in fiber, such as beans, whole grains, and fresh fruits and vegetables. ? Limit foods that are high in fat and processed sugars, such as fried or sweet foods. Mouth care ??? Follow instructions from your provider about how to take care of your surgical (extraction) area. Make sure you: ? Wash your hands with soap and water for at least 20 seconds before you touch your mouth or your gauze pads. If soap and water are not available, use hand squeegee operator. ? Change and remove your gauze as told by your provider. ? Leave stitches (sutures) in place. They may need to stay in place for 2 weeks or longer, or they may dissolve on their own over several days or weeks. ??? If you have bleeding that does not stop, fold a clean piece of gauze and place it on the bleeding gum. Bite down on it gently but firmly. Do not chew on the gauze. ??? Do not do any of these things until your provider says that it is okay: ? Rinse your mouth. ? [place] or floss near your extraction area. You may brush your other teeth. ? Spit. ??? After your provider says that you may rinse your mouth: ? Gargle with a mixture of salt and water 3?4 times a day or as needed. To make salt water, completely dissolve ??1 tsp (3?6 g) of salt in 1 cup (237 mL) of warm water. ? Do not rinse with a lot of force (vigorously). Doing that can break up the blood clot that forms over the extraction site. The blood clot is the beginning of the healing process. ??? If you wear dental prostheses, such as dentures, bridges, partials, or orthodontic retainers, talk with your provider about when you can start wearing them again. Eating and drinking ??? Do not drink through a straw until your provider says it is okay. ??? Eat cool, soft foods as told by your provider. ??? Avoid hot drinks and spicy foods until your mouth has healed. Managing pain and swelling If told, put ice on your cheek on the affected side of your mouth. ??? Put ice in a plastic bag. ??? Place a towel between your skin and the bag. ??? Leave the ice on for 20 minutes, 2?3 times a day. If your skin turns bright red, remove the ice right away to prevent skin damage. The risk of damage is higher if you cannot feel pain, heat, or cold. General instructions ??? Do not use any products that contain nicotine or tobacco. These products include cigarettes, chewing tobacco, and vaping devices, such as e-cigarettes. If you need help quitting, ask your provider. ??? Return to your normal activities as told by your provider. Ask your provider what activities are safe for you. ??? Avoid bothering the extraction area. This is extra important if a material called a graft was put on the extraction site or if sutures were used in the healing of the area. ??? Keep all follow-up visits. Your provider will want to be sure everything is healing. Your provider may give you more instructions. Make sure you know what you can and cannot do. Contact a health care provider if: ??? You have pain that does not get better after you take your prescribed medicine. ??? You have a fever. ??? You have nausea, vomiting, or chills. ??? You have a lot of redness or swelling on your face. ??? You have any of these: ? A lot of swelling. ? Clear fluid or pus coming from the socket. ? New bleeding coming from the socket. ??? You have tingling or numbness in your lip or jaw that does not go away. Get help right away if: ??? You have bleeding that is severe or does not stop after you bite down on several gauze pads. ??? You have trouble swallowing. ??? You cannot open your mouth. ??? You have shortness of breath. ??? You have chest pain. These symptoms may be an emergency. Get help right away. Call 911. ??? Do not wait to see if the symptoms will go away. ??? Do not drive yourself to the hospital. This information is not intended to replace advice given to you by your health (more content not included)... [facility] 02-29-2024 Evaluation note Diagnosis Onset Date Resolution Abdominal bloating acute Novemb er 2023 8:36am Elevated glucose level acute No vember 2023 8:36am Essential (primary) hypertension acute February 28, 024 8:36am Facial paresthesia acute Novemb er 2023 8:36am Influenza A acute May 13, 2024 9:03am [facility] Work Phone: 1(874) 432-723511-26-2024 Evaluation note* Diagnosis Onset Date Resolution Status Admit Date Abdominal bloating acute Novemb er 2023 8:36am Elevated glucose level acute No vember 2023 8:36am Essential (primary) hypertension acute February 28, 024 8:36am Facial paresthesia acute Novemb er 2023 8:36am Acute bacterial tonsillitis acute May 13, 2024 9:03am Influenza A acute May 13, 2024 9:03am [facility] Work Phone: 1(307) 172-881112-18-2023 Hospital Discharge instructions Patient Education 03/22/2023 11:28:20 CV - Cardiovascular Discharge Instructions (CUSTOM) [place], [place] CARDIOVASCULAR DISCHARGE INSTRUCTIONS Diet: Resume pre-procedure [...] hours post procedure: Actoplus MetGlucophageGlucophage XR GlucovanceAvandametFortamet Mbz-xwuiuebhjPfjthbGseu-knbveogcv GlumetzaJanumetMetaglip RiometGlycomet *Minimal pain, soreness and/or discomfort [...] you are interested in smoking cessation, contact [facility] at [phone], ext. [phone]. In the event you are unable to reach your physician, please call [facility] at [phone] and the auxiliary plant operator will assist you. Seek Immediate Medical Care for: Bleeding: Apply continuous pressure to the site and Call 911. Should the arm or leg become cold, numb, blue or white call your physician immediately. Signs of infection are redness, warmth, swelling, increased tenderness, colored drainage, fever or chills Chest pain Follow Up Care 03/19/2023 14:09:21 With:Jairo Contreras Address: [facility] When:05/07/2023 14:45:00 [facility]12-14-2023 Evaluation note* Encounter Date Diagnosis Assessment Notes Treatment Notes Treatment Clinical Notes Mar, Chest pain, unspecified type (ICD-10 - R07.9) Pt agrees to go to ER. No charge for today's visit. Report called to Doris at ER. Has followup w cardio tomorrow in [place]. Alexa states all of her symptoms are very similar to those of her previous heart attack. [employer] Other 08-29-2023 Evaluation note* Encounter Date Diagnosis [...] well hydrated. Nov, Coronary artery disease involving cachil dehe coronary artery of cachil dehe heart without angina pectoris (ICD-10 - I25.10) Continue f/u w [facility] [employer] Other 06-05-2023 Evaluation + Plan note Future Scheduled Tests Laboratory* HgbA1c 09/07/22 * TSH With T4fr Reflex 09/07/22 * CBC w/ Auto Diff 09/07/22 * Comprehensive Metabolic Panel 09/07/22 * Lipid Panel 09/07/22 Radiology* CV Cardiovascular 04/07/22 [facility]01-04-2023 Hospital Discharge instructions Patient Education 04/08/2022 13:08:49 CV - Cardiovascular PCI Discharge Instructions (CUSTOM) [place], [place] Cardiovascular PCI DISCHARGE INSTRUCTIONS Diet: Resume [...] hours post procedure: Actoplus MetGlucophageGlucophage XR GlucovanceAvandametFortamet Vxk-kcxhewdjbJhallhGnfp-uzijwjret GlumetzaJanumetMetaglip RiometGlycomet Minimal pain, soreness and/or discomfort is expected. If you are prescribed an aspirin and/or antiplatelet (such as Plavix, Brilinta or Effient) do NOT stop taking these medications for any reason without talking to your funeral home director Site Care: Do not remove dressing for [...] you are interested in smoking cessation, contact [facility] at [phone], ext. [phone]. In the event you are unable to reach your physician, please call [facility] at [phone] and the auxiliary plant operator will assist you. Seek Medicare Care [...] Up Care 04/07/2022 15:40:27 With:Jairo Contreras Address: [facility] [address] [place] [address] Business (1) When:04/30/2022 12:15:00 [facility]01-04-2023 Evaluation + Plan noteExtracted from: Title:Procedure Note Heart & Vascular Author:Haily sahu MD, Jairo Robles Date:04/08/22 CAD in cachil dehe artery, (I25.10: Atherosclerotic heart disease of cachil dehe coronary artery without angina pectoris)CAD in cachil dehe artery Orders: aspirin, Tab-Chew, Misc, Once, Stop [...] Future Appointments Appointment Date:04/30/2022 12:15:00 PM Scheduled Provider:Ben PARRISH, Jairo Robles Location:[facility] Appointment Type:Cardiology Follow Up ([facility]) Appointment Date:05/05/2022 08:00:00 AM Scheduled Provider: Location:.[facility] Appointment Type:CV Echo ([facility]) Diagnostic Tests Pending * CBC w/ Indices 04/09/22 * Basic Metabolic Panel 04/09/22 * Magnesium Level 04/09/22 * Troponin 04/09/22 Future Scheduled Tests Radiology* Echo Transthoracic Complete 05/05/22 * CV Cardiovascular 04/07/22 [facility]06-15-2021 NoteMR#: [id number] I [facility] Pt. Name: Alexa Carey Admitted: 09/13/2020 Discharged: 09/17/2020 Date of : 1970 Physician: Erin Hialrio MD DISCHARGE SUMMARY PRIMARY DIAGNOSES: 1. Non-ST [...] nausea, vomiting, and subsequently transferred to the [facility] for further workup. Cardiology team consulted. Patient [...] P/Erin Hilario MD Date Trans: 09/17/2020 04:19 P/mario [id number] cc: Dariusz Keen M.D. [address] [place] [id number] Regional Medical CenterEvaluation + Plan note Future Appointments Appointment Date:04/30/2022 12:15:00 PM Scheduled Provider:Jairo Contreras MD [facility] Follow Up ([facility]) Future Scheduled Tests Radiology* Echo Transthoracic [facility]02[facility]22 [facility] Future Appointments Appointment Date:05/12/2022 03:15:00 PM Scheduled Provider:Jairo Contreras MD [facility] Type:Cardiology Follow Up (FT) Future Scheduled Tests Radiology* CV Cardiovascular [facility]07[facility]22 [facility] Appointments Appointment Date:10/12/2022 01:45:00 PM Scheduled Provider:Jairo Contreras MD [facility]iology Follow Up (FT) Future Scheduled Tests Laboratory* HgbA1c 09/07/22 * TSH With T4fr Reflex 09/07/22 * CBC w/ Auto Diff 09/07/22 * Comprehensive Metabolic Panel 09/07/22 * Lipid Panel 09/07/22 Radiology* CV [facility] Future Appointments Appointment Date:05/07/2023 02:45:00 PM Scheduled Provider:Jairo Contreras MD [facility] Type:Cardiology Follow Up (FT) Future Scheduled Tests Laboratory* HgbA1c 09/07/22 * TSH With T4fr Reflex 09/07/22 * CBC w/ Auto Diff 09/07/22 * Comprehensive Metabolic Panel 09/07/22 * Lipid Panel 09/07/22 Radiology* CV Cardiovascular [facility] Future Appointments Appointment Date:01/11/2024 10:30:00 AM Scheduled Provider:Michelet Velázquez PA-C [facility] Future Appointments Appointment Date:03/22/2023 09:00:00 AM Scheduled Provider: Location:[facility] Appointment Type:CV Heart Cath (FT) Appointment Date:05/07/2023 02:45:00 PM Scheduled Provider:Jairo Contreras MD [facility] [place] Appointment Type:Cardiology Follow Up (FT) Future Scheduled Tests Laboratory* HgbA1c 09/07/22 * TSH With T4fr Reflex 09/07/22 * CBC w/ Auto Diff 09/07/22 * Comprehensive Metabolic Panel 09/07/22 * Lipid Panel 09/07/22 Radiology* CV Cardiovascular 03/22/23 * CV Cardiovascular 04/07/22 [facility] [employer] Other Evaluation note* Diagnosis Onset Date Resolution Status Essential (primary) hypertension acute Fatigue acute High cholesterol acute Left knee pain acute [facility] Work Phone: Evaluation note* Diagnosis Onset Date Resolution Status Abdominal bloating acute Essential (primary) hypertension acute Fatigue acute High cholesterol acute Left knee pain acute TIMMY (obstructive sleep apnea) acute [facility] Work Phone: Evaluation note* Diagnosis Onset Date Resolution Status Abdominal bloating acute Essential (primary) hypertension acute Fatigue acute High cholesterol acute Left knee pain acute TIMMY (obstructive sleep apnea) acute Chronic low back pain acute Lumbar radiculopathy acute Left knee pain acute [facility] Work Phone: Evaluation note* Diagnosis Onset Date Resolution Status Coronary artery disease with angina pectoris acute Left knee pain acute Contact with and (suspected) exposure to covid-19 noneactive Sore throat noneactive [facility] Work Phone: History general Narrative - Reported* Type Description Date Medical History hypertension Medical History CAROTID ARETERY STENOSIS Medical History HX OF TIA Medical History LUIS EDUARDO CARDIA Surgical History CHOLECYSTECTOMY Surgical History C SECTION Surgical History TUBAL LIGATION Surgical History HYSTERECTOMY Surgical History BSO Hospitalization History PT HAD TIA JAN 2016 [facility] [employer] Other History of Present illness Narrative* The [...] medication regimen. She denies medication side effects. [facility]-Anastasiya 250 DO Work Phone: Hospital course Narrative No data available for this section [facility] No data available for this section [facility] No data available for this section [facility] Summary Purpose Family History No Family History Records FoundUnknown Family Member Name Dates Details Family history [...] mother Unknown Diabetes mellitus Unknown Advance Directives No Advanced Directives Records Found Advance Directive Response Recorded Date/ Time Advance [...] section and content) DATE CREATED AUTHOR 09/22/2020 [facility] DATE CREATED AUTHOR AUTHOR'S ORGANIZ ATION 09/27/2020 [facility] DATE CREATED AUTHOR AUTHOR'S ORGANIZ ATION 03/20/2021 [employer] DATE CREATED AUTHOR AUTHOR'S ORGANIZ ATION 05/25/2021 [facility] DATE CREATED AUTHOR AUTHOR'S ORGANIZ ATION 07/11/2022 [facility] DATE CREATED AUTHOR AUTHOR'S ORGANIZ ATION 12/24/2024 [facility] Patient Care team informatio n (unrecognized section and content) Team Status: Active Member Role Status Floyd Romero MD Primary Care Provider Active Team Status: Active Member Role Status Floyd Romero MD Primary Care Provide r, Attending Provider Active Start: February 22, 2024 Team Status: Inactive Member Role Status Floyd Romero MD Primary Care Provide r, Attending Provider Active Start: February 29, 2024 End: February 29, 2024 Team Status: Active Member Role Status Floyd Romero MD Primary Care Provide r, Attending Provider Active Start: March 14, 2024 Team Status: Inactive Member Role Status Floyd Romero MD Primary Care Provider Active Start: May 13, 2024 End: May 13, 2024 Chelsy Palacios APRN Attending Provider Active S tart: May 13, 2024 End: May 13, 2024 Team Status: Inactive Member Role Status Floyd Romero MD Primary Care Provide r, Attending Provider Active Start: August 31, 2023 End: August 31, 2023 Team Status: Inactive Member Role Status Floyd Romero MD Primary Care Provider Active Start: September 14, 2023 End: September 14, 2023 Domenico Ross DO Attending Provider Active St art: September 14, 2023 End: September 14, 2023 Team Status: Inactive Member Role Status Floyd Romero MD Primary Care Provide r, Attending Provider Active Start: October 11, 2023 End: October 11, 2023 Team Status: Inactive Member Role Status Floyd Romero MD Primary Care Provider Active Start: December 28, 2023 End: December 28, 2023 Michelle Ross APRN Attending Provider Active Start: December 28, 2023 End: December 28, 2023 Team Status: Inactive Member Role Status Floyd Romero MD Primary Care Provide r, Attending [...] BE BASED ON THE PRIMARY CLINICAL RECORDS. [facility]. provides no warranty or guarantee of the accuracy or completeness of information in this document.
[2025-01-10 10:28] LABS: Hematocrit 42.8 % (36.0-48.0); Hemoglobin 14.0 g/dL (12.0-16.0); Immature Granulocytes Abs Auto 0.01 10^3/uL (0.00-0.03); Immature Granulocytes Pct Auto 0.1 % (0.0-0.5); Lymphocytes Absolute Auto 1.7 10^3/uL (1.2-3.8); Mean Corpuscular HGB Conc 32.7 g/dL (29.9-35.2); Mean Corpuscular Hemoglobin 29.4 pg (26.7-34.0); Mean Corpuscular Volume 89.7 fL (81.0-99.0); Platelet Count 307 10^3/uL (150-450); Red Blood Count 4.77 10^6/uL (4.20-5.40); White Blood Count 6.9 10^3/uL (4.0-11.0)
[2025-01-10 11:00] LABS: Alanine Aminotransferase 22 U/L (14-59); Albumin Globulin Ratio 0.9; Albumin Level 3.8 g/dL (3.4-5.0); Alkaline Phosphatase 135 U/L (46-116); Anion Gap 11.7; Aspartate Amino Transferase 19 U/L (15-37); Blood Urea Nitrogen 11.0 mg/dL (7.0-18.0); Calcium 9.4 mg/dL (8.5-10.1); Carbon Dioxide 31.4 mmol/L (21.0-32.0); Chloride 105 mmol/L (98-107); Cholesterol 138 mg/dL (<=200); Estimated GFR (African America >60 (>=60 mL/min/1.73m^2); Estimated GFR (Non-African Ame >60 (>=60 mL/min/1.73m^2); Globulin 4.1 g/dL; Glucose 117 mg/dL (74-106); HDL Cholesterol 43 mg/dL (40-60); Potassium 4.1 mmol/L (3.5-5.1); Sodium 144 mmol/L (136-145); Total Protein 7.9 g/dL (6.4-8.2); Triglycerides 151 mg/dL (<=150); VLDL CHOLESTEROL 30.2 mg/dL
== END 2025-01-10 09:36 | disposition home or self-care (01) ==
LOC: LAB 09:37
PROVIDERS: PCP Family Medicine; Visit Provider Family Medicine
DX: E78.00 Pure hypercholesterolemia, unspecified (principal); R73.09 Other abnormal glucose; I10 Essential (primary) hypertension
CPT/HCPCS: 36415; 80053; 80061; 82043; 82570; 83036; 85025

== ENCOUNTER 2025-02-14 10:46 | Outpatient (OUT) | payer MEDICARE, MEDICAID, SELFPAY ==
--- NOTE | 2025-02-14 | MM_ITS ---
Patient Name: ALEXA FERNANDEZ MR#: [id number] : 1970 Exam Date: 02/14/2025 Ordering Doctor: DR BENSON ROMERO M.D. RADIOLOGY REPORT PROCEDURE: MM TOMOSYNTHESIS SCREENING BI COMPARISON: MG MAMM RT DIAG W CAD, 09/18/2016. MAMMO POST BIOPSY RIGHT, 03/09/2016. MG MAMM RT UNI W CAD DIG, 02/14/2016. MG MAMM KEN SCRN W CAD DIG, 02/05/2016. INDICATIONS: Encounter for screening mammogram for malignant neoplasm Calculator Name NCI Breast Cancer Risk Assessment Tool 5 Year Breast Cancer Risk 0.90% Lifetime Breast Cancer Risk 7.40% Personal Breast Cancer No Personal Ovarian Cancer No Treatments None Family Cancers Aunt-maternal with breast cancer at age ~70. LOCATION: The [facility] BREAST COMPOSITION: The breasts are heterogeneously dense, which may obscure small masses. FINDINGS: RIGHT BREAST: No significant suspicious finding. Benign-appearing calcifications are present. Similar focal asymmetries are noted. LEFT BREAST: No significant suspicious finding. Benign-appearing calcifications are present. Similar focal asymmetries are noted. DIAGNOSTIC CATEGORY 2--BENIGN FINDING. NO CHANGE FROM COMPARISON. RECOMMENDATIONS: ROUTINE MAMMOGRAM AND CLINICAL EVALUATION IN 12 MONTHS. Dictated by: Melquiades De La Rosa MD on 02/14/2025 at 16:01 Approved by: Melquiades De La Rosa MD on 02/14/2025 at 16:09
--- OUTSIDE RECORDS SUMMARY | 2025-02-14 10:51 | XMS_ITS | Patient Health Record ---
Author Organization [facility] [place] Address [address] [place] [address] Care Team Providers Care Baker Operator Automatic Name Role Phone Susanne Keen MD Primary Care Provider Unavailabl e Reason For Referral No Information Medications Medication SIG (Take, Route, Frequency, Duration) Notes Start Date End Date Status Aspirin 81 MG 1 tablet Orally Daily ActivecloNIDine HCl 0.1 MG1 tablet Orally Once a dayActiveFurosemide 20 MG1 tablet Orally Once a dayActiveMetoprolol Tartrate 100 MG1 tablet with food Orally Twice a dayActiveNIFEdipine ER Osmotic Release 90 MG1 tablet Orally BID ActiveAtorvastatin Calcium 20 MG1 tablet Orally at bedtimeActiveClopidogrel Bisulfate 75 MG1 tablet Orally Once a dayActiveKlor-Con 10 10 MEQ1 tablet with food Orally DailyActiveCitalopram Hydrobromide 20 MG1 tablet Orally Once a day ActiveLosartan Potassium 100 MG1 tablet Orally Once a dayActiveFerrous Sulfate 324 (65 Fe) MG1 tablet Orally DailyActiveSpironolactone 25 MG1 tablet Orally Once a dayActivecloNIDine 0.2 MG/24HR1 patch to skin TransdermalActiveFolic Acid 1 MG1 tablet Orally Once a dayActiveVitamin D3 94582 UNIT1 tablet Orally Once a dayActive Social History Tobacco Use: Social History Observation Description Date Details (start date - stop date) Never Smoker NA - NA Tobacco Use/Smoking Question Answer Notes Patient is a nonsmoker Alcohol Screen (Audit-C) Question Answer Notes Did you have a drink containing alcohol in the p ast year? No Kddrjn9LfsqupeiflxiizBsujigmm Problems Problem Type SNOMED Code ICD Code Onset Dates Problem Status W/U Status Risk Notes Problem Right ovarian cyst ([id number]) Ri ght ovarian cyst (N83.201) Activeconfirmed Plan Of Treatment No Information Insurance Providers Payer Name Payer Address Payer Phone Subscriber Number Group Number Insured Name Patient Relationship to Insured Coverage Start Date Coverage End Date [employer] [place] [address] [place], [place] [id number] Tre Careyelf - patient is the [id number] 2018 Medical (General) History Medical History History ICD Code HTN AnemiaHistory of Twin gestationDepression & AnxietySurgical History Surgery Date(Month/Year) Colonoscopy 08/2015 Cholecystectomy 07/2014 NASRA with Ovarian Preservation 10/2016 Tubal Ligation
--- OUTSIDE RECORDS SUMMARY | 2025-02-14 10:52 | XMS_ITS | Clinical Summary ---
Author Organization [facility] Address [address] [place] [address] Care Team Providers Care Mincing Machine Operator Name Role Phone Analilia Young MD Primary Care Provider [phone] Social History Tobacco UseTypesPacks/DayYears UsedDateSmoking Tobacco: Never Assessed CommentsUnknownSex and Gender InformationValueDate RecordedSex Assigned at Not on fileLegal OqdVabfkq19/15/2023 11:40 PM EDTGender IdentityNot on file Sexual OrientationNot on file Last Filed Vital Signs Vital SignReadingTime TakenCommentsBlood Aisraddl615/05151 12:00 PM EDT Pulse--Temperature--Respiratory Rate--Oxygen Saturation--Inhaled Oxygen Concentration--Uvmiwo41.2 kg (201 lb)12/17/2021 12:00 PM HWUNlvfzi628.6 cm (5' 4 )12/17/2021 12:00 PM EDTBody Mass Index34.509 12:00 PM EDT Plan of Treatment Health MaintenanceDue DateLast DoneCommentsCT Wkfdwdcwntdf44/10/1973Colonoscopy 1972Colorectal Cancer Mpvlhkdaq13/10/1973FIT-DNA1972FIT1972 FOBT1972Gtmhunwnfnnmy20/10/1973Pap Smear1993Cervical Cancer Llhouavqz21/10/2003HPV/Xdqhip8304/14/20021225Rbdkpjzvq74/10/2013COVID-19 Vaccine ( season)/11/2020, 12/13/2020Influenza Vaccine (#1)2024 3Pneumococcal Vaccine: Pediatrics (0 to 5 Years) and At-Risk Patients (6 to 64 Years)Aged OutNo longer eligible based on patient's age to complete this topic Insurance Care Teams Team MemberRelationshipSpecialtyStart DateEnd Analilia Young MD PCP - GeneralFamily Iqrbzakb06/3/24
--- OUTSIDE RECORDS SUMMARY | 2025-02-14 10:52 | XMS_ITS | Clinical Summary ---
Author Organization [facility] Address [address] 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 Name Role Phone Susanne Keen MD Primary Care Provider Social History Tobacco UseTypesPacks/DayYears UsedDateSmoking Tobacco: Never Assessed CommentsUnknownSex and Gender InformationValueDate RecordedSex Assigned at Not on fileLegal DgqKnhdde31/25/2022 2:25 PM ESTGender IdentityNot on fileSexual OrientationNot on file Last Filed Vital Signs Vital SignReadingTime TakenCommentsBlood Tkfucuqv816/9803/19/2021 9:13 AM EST Bxzhx741203/19/2021 8:57 AM ESTTemperature--Respiratory Rate--Oxygen Saturation-- Inhaled Oxygen Concentration--Cqffmm25.2 kg (212 lb)03/19/2021 8:57 AM ESTHeight 162.6 cm (5' 4 )03/19/2021 8:57 AM ESTBody Mass Index36.39105/20/2020 8:57 AM EST Plan of Treatment DateTypeDepartmentCare Team (Latest Contact Info)Klcbbxbsmoy34/13/2025 11:15 AM ESTOffice Visit [facility] [address] [place] [address] [place] [address] [facility] [address], [facility] [address] [place] [address] Health MaintenanceDue DateLast DoneCommentsCT Lujpeqwpapuv54/10/1973Colonoscopy 1972Colorectal Cancer Ivrokmdej79/10/1973Creatinine Level1972FIT-DNA (Cologuard)1972FIT1972HIV Tcmksvpld06/10/1973Lipid Panel1972 Medicare Annual Wellness Visit (AWV)1972Potassium Level1972 Kszirkqybbqmr83/10/1973MMR Vaccines (1 of 1 - Standard series)1973Diabetes Pkhmetrqo59/10/1991Hepatitis C Ppmcxqegd80/10/1991Hepatitis B Vaccines (1 of 3 - 19+ 3-dose series)1991Cervical Cancer Lcfakjxsv32/10/1994HPV/Cotest 1993Pap Smear1993DTaP/Tdap/Td Vaccines (1 - Tdap)1994Mammogram 04/14/20126150Lzkhnkrewpclkl79/14/202206/14/2021, 05/22/2020, 11/10/2019, Additional history existsPneumococcal Vaccine (1 of 1 - PCV)2022Zoster Vaccines (1 of 2)2022Influenza Vaccine (#1)5COVID-19 Vaccine (3 - season)510/11/2020, 12/13/2020HIB VaccinesAged OutNo longer eligible based on patient's age to complete this topicHPV VaccinesAged OutNo longer eligible based on patient's age to complete this topicHepatitis A VaccinesAged OutNo longer eligible based on patient's age to complete this topicIPV Vaccines Aged OutNo longer eligible based on patient's age to complete this topic Meningococcal VaccineAged OutNo longer eligible based on patient's age to complete this topicRotavirus VaccinesAged OutNo longer eligible based on patient's age to complete this topic Procedures Procedure NamePriorityDate/TimeAssociated DiagnosisCommentsECHOCARDIOGRAM 09/16/2020 from Last 3 Months or Most Recently Relevant to Health Maintenance Results * ECHOCARDIOGRAM (09/16/2020) Narrative 09/16/2020 Ordered by an unspecified provider. Authorizing ProviderResult TypeResult StatusOnbase ConversionCV ECHO PROCEDURES Final Result from Last 3 Months or Most Recently Relevant to Health Maintenance Insurance Care Teams Team MemberRelationshipSpecialtyStart DateEnd Susanne Keen MD [address] [place] [place] [address] PCP - General04/05/99
--- OUTSIDE RECORDS SUMMARY | 2025-02-14 10:52 | XMS_ITS | Clinical Summary ---
Author Organization [facility] Address [address] [place] [address] Care Team Providers Care Call Center Receptionist Name Role Phone Unavailable Primary Care Provider Unavailabl e Social History Tobacco UseTypesPacks/DayYears UsedDateSmoking Tobacco: Never AssessedUT Safety & EnvironmentAnswerDate RecordedFear of Current or Ex-PartnerNot on file 05/27/2023Emotionally AbusedNot on file4Physically AbusedNot on file 05/27/2023Sexually AbusedNot on file05/27/2023hysically or Sexually AbusedNot on file05/27/2023CommentsUnknownSex and Gender InformationValueDate RecordedSex Assigned at BirthNot on fileLegal ShaGctjvt08/29/2022 11:32 PM EDT Gender IdentityNot on fileSexual OrientationNot on file Last Filed Vital Signs Vital SignReadingTime TakenCommentsBlood Djazqqgl512/8608 3:15 PM EDT Uvbdx016504/29/2020 4:45 PM ESTTemperature--Respiratory Rate--Oxygen Civfgefyao71% 11/06/2020 3:16 PM EDTInhaled Oxygen Concentration--Zkqwfp36.3 kg (210 lb) 11/06/2020 3:15 PM LULFecgxx623.6 cm (5' 4 )11/06/2020 3:11 PM EDTBody Mass Index36.05011/06/2020 3:11 PM EDT Plan of Treatment Health MaintenanceDue DateLast DoneCommentsCT Quawmcrqtlpx69/10/1973Colonoscopy 1972Colorectal Cancer Nlhkwizqd82/10/1973FIT-DNA1972FIT1972 FOBT1972Medicare Annual Wellness (AWV)1972 2522Xamjjjojgmogy64/10/1973 Depression Dhzbvmedk78/10/1985Hepatitis B Vaccines (1 of 3 - 19+ 3-dose series) 1991Pap Smear1993Adult Navusft4404/14/1994Cervical Cancer Screening 2002HPV/Odcmtg3904/14/20026296Veiyhvaxv82/10/2013Zoster Vaccines (1 of 2) 2022Influenza Vaccine (#1)2024HIB VaccinesAged OutNo longer eligible based on patient's age to complete this topicHPV VaccinesAged OutNo longer eligible based on patient's age to complete this topicIPV VaccinesAged OutNo longer eligible based on patient's age to complete this topicMeningococcal B VaccineAged OutNo longer eligible based on patient's age to complete this topic Meningococcal VaccineAged OutNo longer eligible based on patient's age to complete this topicPneumococcal Vaccine: Pediatrics (0 to 5 Years) and At-Risk Patients (6 to 64 Years)Aged OutNo longer eligible based on patient's age to complete this topicRotavirus VaccinesAged OutNo longer eligible based on patient's age to complete this topic Insurance
--- OUTSIDE RECORDS SUMMARY | 2025-02-14 10:52 | XMS_ITS | Patient Health Record ---
Author Organization [facility] Address [address] [place] [address] Care Team Providers Care Commercial Development Manager Name Role Phone Dr. Santos Ramon Primary Care Provider Allergies Allergen (clinical drug ingredient) Drug/Non Drug Allergy documented on EMR Reaction Allergy Type Onset Date Status lisinopril Lisinopril Unknown Drug Allergy Active Reason For Referral No Information Medications Medication SIG (Take, Route, Frequency, Duration) Notes Start Date End Date Status Ibuprofen 800 MG Tablet 1 tablet with fo od or milk as needed Orally Three times a day 5ActiveIbuprofen 800 MG Tablet1 tablet with food or milk as needed Orally Three times a day10/02/2021UnknownPlavix 75 MG Tablet1 tablet Orally Once a dayUnknownAtenolol 25 MG Tablet1 tablet Orally Once a dayUnknowncloNIDine 0.1 MG/24HR Patch Weekly1 patch to skin TransdermalUnknownValsartan 4 MG/ML Solution 5 mL Orally Twice a dayUnknown Encounters Encounter Location Date Provider Diagnosis [address] [address] 12/02/2024 Santos Ramon Encounter for den denis examination and cleaning with abnormal findings Z01.21 ; Other dental procedure status Z98.818 ; Disturbances in tooth eruption K00.6 ; Acute gingivitis, plaque induced K05.00 and Dental caries on pit and fissure surface penetrating into dentin K02.52 [facility] [address] [place] [address] 12/08/2024 Santos Ramon Cracked tooth K03 .81 Assessments Encounter Date Diagnosis (ICD Code) Assessment Notes Treatment Notes Treatment Clinical Notes Section Notes 12/02/2024 Encounter for dental examination and cleaning with abnormal findings (ICD-10 - Z01.21) 5Cracked tooth (ICD-10 - K03.81)12/02/2024Other dental procedure status (ICD-10 - Z98.818)12/02/2024Disturbances in tooth eruption (ICD-10 - K00.6) 12/02/2024ute gingivitis, plaque induced (ICD-10 - K05.00)12/02/2024Dental caries on pit and fissure surface penetrating into dentin (ICD-10 - K02.52) Plan Of Treatment Next Appt Details Provider Name:Santos Ramon, 0 04/18/2025 11:00:00 AM, [address] [place], [address], Provider Name:Claudia Anna, 04/23/2025 10:30:00 AM, [address], [place], [address], Insurance Providers Payer Name Payer Address Payer Phone Subscriber Number Group Number Insured Name Patient Relationship to Insured Coverage Start Date Coverage End Date [employer] [place] [employer] [address] [place] [address] [id number] Kimi FERNANDEZ - patient is the [id number] 2024[employer] [place] [place] [address] [place] [id number], FRANCESSelf - patient is the [id number] 2024
--- OUTSIDE RECORDS SUMMARY | 2025-02-14 11:12 | XMS_ITS | CCD ---
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 Heater Installer Name Role Phone DARIUSZ KEEN Primary Care Unavailable UNKNOWN, PROVIDER Attending Unavailable UNKNOWN, PROVIDER Admitting Unavailable KEEN, DARIUSZ Referring Unavailable KEEN, DARIUSZ Referring Unavailable KENE, DARIUSZ Primary Care Unavailable ERIN DUNN Attending Unavailable GURPREET PASTOR Admitting Unavailable MT Procedure Practitioner Unavailab ESA Cosme Surgeon Unavailable MT Procedure Practitioner Unavailab YOCASTA Phillip Surgeon Unavailable Dariusz Keen Unavailable Unavailable Unavailable DARIUSZ KEEN Primary Care Physician [phone] KE[address] ., DR DARIUSZ West Attending Unavailable [...] ., DR DARIUSZ West Primary Care Unavailable JOVANA, DR ANIKA Grossman Consulting Unavailable DR ANIKA [...] Bennett Unavailable BENSON ROMERO Primary Care Physician [phone] Michelet Velázquez Attending Unavailable Gerry Sotelo Attending Unavailable Benson Romero MD Primary Care Provider Sofia Cortes CMA Attending Provider UnavailBenson Sifuentes MD Attending Provider [phone] Allergies Allergy ClassificationReported Allergen(s)Allergy TypeDate of OnsetReaction(s) FacilityAmino Acids (1 source)Amino AcidsDrug Uflgwkn58-02-9633[facility] Repository (17 sources)Lisinopril; Translations: [Lisinopril TABS][facility]ergyUniversity [facility] (1 source)Adhesive bandageDrug allergy (disorder)06-84-5338[facility] Repository (2 sources)Amino Acids; Translations: [lisinopril]Drug AllergyThe [facility] (6 sources)hydrALAZINE; Translations: [hydralazine]Drug AllergyUnknown (qualifier value)[facility] (6 sources)topiramate; Translations: [topiramate]Drug AllergyUnknown (qualifier value)[facility] Medications Current Medications MedicationDrug Class(es)DatesSig (Normalized)Sig (Original)amitriptyline hydrochloride 75 mg oral tablet (20 sources)Tricyclic AntidepressantStart: 12-27-2020 End: 56-99-8345rvda 1 tablet by mouth once dailyAmitriptyline 75 mg tablet Active 75 MG PO Daily November 20, 2024 2:44pm Complies with drug therapy aspirin 81 mg delayed release oral tablet (20 sources)Platelet Aggregation Inhibitor, Nonsteroidal Anti-inflammatory Drug Start: 02-07-2024 End: 71-09-2853jrbc 1 tablet by mouth once dailyAspirin 81 mg tablet,delayed release (DR/EC) Active 0 .ROUTE .COMPLEX November 14, 2024 8:13am TAKE 1 TABLET BY MOUTH EVERY DAY Complies with drug therapyStart: 12-27-2020 End: 45-62-3009hjel 1 tablet by mouth once dailyAspirin 81 mg tablet,delayed release (/EC) Discontinued 81 MG PO Daily December 27, 2020 12:00am February 07, 2024 5:39pmatenolol 50 mg oral tablet (20 sources)beta-Adrenergic BlockerStart: 23-01-9337owpx 1 tablet by mouth once dailyAtenolol 50 mg tablet Active 0 .ROUTE .COMPLEX October 30, 2024 3:43pm TAKE 1 TABLET BY MOUTH EVERY DAY Complies with drug therapyStart: 13-14-2446cqgx 1 tablet by mouth twice dailyatenolol 50 mg Tab 50 mg = 1 tab(s), Oral, BID, # 180 tab(s), Refills(s) 3, Pharmacy: [facility]/pharmacy #[id number], 164, cm, 05/12/22 15:46:00 EST, Height/Length Dosing, 90, kg, 05/12/22 15:46:00 EST, Weight Dosing Start Date: 08/18/22 Status: OrderedStart: 12-27-2020 End: 09-73-9787limg 1 tablet by mouth once dailyAtenolol 50 mg tablet Discontinued 50 MG PO Daily May 10, 2024 4:39pm October 30, 2024 3:43pm atorvastatin 40 mg oral tablet (20 sources)HMG-CoA Reductase InhibitorStart: 12-27-2020 End: 09-72-6791bpug 1 tablet by mouth once dailyAtorvastatin 40 mg tablet Active 40 MG PO Daily December 25, 2024 12:30pm Complies with drug therapy cholecalciferol 0.125 mg oral tablet (12 sources)Vitamin DStart: 19-62-2205yrdc 1 tablet by mouth once daily Cholecalciferol (Vitamin D3) (Vitamin D3) 125 mcg (5,000 unit) Tablet Active 125 MCG PO Daily December 27, 2020 12:00am Complies with drug therapyVitamin D3 25 MCG (1000 UT) Oral Capsule TAKE DIRECTED. Quantity: 0 Refills: 0 Ordered: 19-Mar-2021 DO Activecitalopram 40 mg oral tablet (20 sources)Serotonin Reuptake InhibitorStart: 10-22-2023 End: 69-52-2965isjr 1 tablet by mouth once dailyCitalopram 40 mg tablet Active 0 .ROUTE .COMPLEX 90 November 14, 2024 8:13am TAKE 1 TABLET BY MOUTHEVERY DAY Complies with drug therapyStart: 92-87-8659fpqe 1 tablet by mouth once daily citalopram 40 mg Tab See Instructions, TAKE 1 TABLET BY MOUTH EVERY DAY, # 90 tab(s), Refills(s) 0,Pharmacy: [id number], 164, cm, 03/22/23 7:23:00 EST, Height/Length Dosing, 92.3, kg, 03/22/23 7:23:00 EST, Weight Dosing Start Date: 07/19/23 Status: OrderedStart: 81-56-9323yqpr 1 tablet by mouth once daily citalopram 40 mg Tab See Instructions, TAKE 1 TABLET BY MOUTH EVERY DAY, # 90 tab(s), Refills(s) 0,Pharmacy: [id number], 164, cm, 11/12/22 13:53:00 EDT, Height/Length Dosing, 92.3, kg, 11/12/2312:53:00 EDT, Weight Dosing Start Date: 02/16/23 Status: OrderedStart: 12-27-2020 End: 29-96-5257uviu 1 tablet by mouth once dailyCitalopram 20 mg tablet Discontinued 20 MG PO Daily December 27, 2020 12:00am October 22, 2023 10:50am cloNIDine hydrochloride 0.2 mg oral tablet (20 sources)Central alpha-2 Adrenergic AgonistStart: 70-71-9800puwc 1 tablet by mouth twice dailyClonidine Hcl 0.2 mg tablet Active 0 .ROUTE .COMPLEX 180 May 30, 2024 4:52pm TAKE 1 TABLET BY MOUTH TWICE A DAY Complies with drug therapyStart: 67-22-5255lmyb 1 tablet by mouth twice dailycloNIDine 0.3 mg Tab 0.3 mg = 1 tab(s), Oral, BID, # 180 tab(s), Refills(s) 3, Pharmacy: [facility]/pharmacy #[id number], 164, cm, 09/24/22 12:51:00 EDT, Height/Length Dosing, 91.4, kg, 09/24/22 12:51:00 EDT, Weight Dosing Start Date: 09/24/22 Status: OrderedStart: 89-92-5893vyby 1 tablet by mouth twice dailycloNIDine 0.1 mg tab 0.1 mg = 1 tab(s), Oral, BID, # 60 tab(s), Refills(s) 3, Pharmacy: [facility]/pharmacy #[id number], 164, cm, 04/02/22 13:47:00 EST, Height/Length Dosing, 94.2, kg, 04/02/22 13:47:00 EST, Weight Dosing Start Date: 04/02/22 Status: OrderedStart: 12-27-2020 End: 27-39-1393ckeh 1 tablet by mouth twice dailyClonidine Hcl 0.2 mg tablet Discontinued 0.2 MG PO Twice daily 180 February 29, 2024 10:42am May 30, 2024 4:52pmtake 2 tablets by mouth at bedtimecloNIDine HCl - 0.2 MG Oral Tablet TAKE 2 TABLETS AT BEDTIME. Quantity: 0 Refills: 0 Ordered: 19-Mar-2021 DO ActiveDilTIAZem (Eqv-Dilacor XR) 120 mg/24 hours oral capsule, extended release (2 sources)Start: 46-29-3838LudNRLPqf (Eqv-Dilacor XR) 120 mg/24 hours oral capsule, extended release 120 mg = 1 cap(s), Oral, Daily, # 90 cap(s), Refills(s) 1, Pharmacy: [facility]/pharmacy #[id number], 160, cm, 09/07/22 18:32:00 EDT, Height/Length Dosing, 91.2, kg, 09/07/22 18:32:00 EDT, Weight Dosing Start Date: 09/07/22 Status: OrderedErgocalciferol (3 sources)Provitamin D2 CompoundStart: 38-61-3707Bvchyvx D2 Refills(s) 0 Start Date: 04/02/22 Status: Orderedfamotidine 40 mg oral tablet (20 sources)Histamine-2 Receptor AntagonistStart: 10-21-2023 End: 11-75-7673nkiv 1 tablet by mouth once daily at bedtimeFamotidine 40 mg tablet Active 0 .ROUTE .COMPLEX 90 November 20, 2024 12:23pm TAKE 1 TABLET BY MOUTH EVERYDAY AT BEDTIME Complies with drug therapyStart: 12-27-2020 End: 33-23-6416Vvvdepncha 40 mg tablet Discontinued 40 MG PO As Directed December 27, 2020 12:00am October 21, 2023 8:47amhydroCHLOROthiazide 12.5 mg oral tablet (13 sources)Thiazide DiureticStart: 23-21-1308sgnq 1 tablet by mouth once daily hydrochlorothiazide 12.5 mg Tab 12.5 mg = 1 tab(s), Oral, Daily, # 30 tab(s), Refills(s) 2, Pharmacy: [facility]/pharmacy #[id number], 164, cm, 10/11/23 13:23:00 EDT, Height/Length Dosing, 94.6, kg, 10/11/23 13:23:00 EDT, Weight Dosing Start Date: 10/11/23 Status: OrderedStart: 12-27-2020 End: 82-25-3241Enalwaytnddhyxrftje 25 mg tablet Discontinued 25 MG PO As Directed December 27, 2020 12:00am February 29, 2024 9:48amNitro Sublingual 0.4 (2 sources)Nitro Sublingual 0.4 for 90 days Activenitroglycerin 0.4 mg sublingual tablet (20 sources)Nitrate VasodilatorStart: 06-16-2024 End: 43-89-6558Evqnwoxaocghv 0.4 mg tablet, sublingual Active 0 .ROUTE .COMPLEX December 15, 2024 11:37am PLACE 1 TABLET UNDER TONGUE EVERY 5 MINS, UP TO 3 DOSES NEEDED FOR CHEST PAIN DIRECTED Complies with drug therapyStart: 12-27-2020 End: 10-92-8620Aigusswleceyu 0.4 mg tablet, sublingual Discontinued 0.4 MG SUBLINGUAL As Directed as needed for Chest Pain October 11, 2023 10:09am June 16, 2024 8:50amNitroglycerin 0.[address] 1 TABLET UNDER TONGUE EVERY 5 MINS, UP TO 3 DOSES NEEDED FOR CHEST PAIN DIRECTED for 30 ActivePOLYETHYLENE GLYCOL 3350 (4 sources)Osmotic LaxativeStart: 07-17-9560CpkrBgq - 17 grams Orally daily for 1 month August, Udvczy08 hr ranolazine 500 mg extended release oral tablet (17 sources)Anti-anginalStart: 30-66-3044sibh 1 tablet by mouth twice daily ranolazine 500 mg oral ER Tab See Instructions, TAKE 1 TABLET BY MOUTH TWICE A DAY, # 180 tab(s), Refills(s) 1, Pharmacy: [id number], 164, cm, 03/22/23 7:23:00 EST, Height/Length Dosing, 92.3, kg, 03/22/23 7:23:00 EST, Weight Dosing Start Date: 07/19/23 Status: OrderedStart: 91-16-8062uvni 1 tablet by mouth twice dailyranolazine 500 mg oral ER Tab See Instructions, TAKE 1 TABLET BY MOUTH TWICE A DAY, # 180 tab(s), Refills(s) 1, Pharmacy: [id number], 164, cm, 11/12/22 13:53:00 EDT, Height/Length Dosing, 92.3, kg, 11/12/22 13:53:00 EDT, Weight Dosing Start Date: 02/16/23 Status: OrderedStart: 99-27-5828pxmz 1 tablet by mouth twice dailyranolazine 500 mg oral ER Tab 500 mg = 1 tab(s), Oral, BID, # 180 tab(s), Refills(s) 1, Pharmacy: [facility]/pharmacy #[id number], 160, cm, 09/07/22 18:32:00 EDT, Height/Length Dosing, 91.2, kg, 09/07/22 18:32:00EDT, Weight Dosing Start Date: 09/07/22 Status: OrderedStart: 83-47-0528grap 1 tablet by mouth twice dailyranolazine 500 mg oral ER Tab 500 mg = 1 tab(s), Oral, BID Start Date: 04/02/22 Status: OrderedStart: 21-00-5845krba 1 tablet by mouth every twelve hoursRanolazine ER 500 MG Oral Tablet Extended Release 12 Hour TAKE 1 TABLET BY MOUTH EVERY 12 HOURS Quantity: 180 Refills: 0 Ordered: 10-Apr-2021 Navdeep German DO Start : 19-Mar-2021 Activetake 1 tablet by mouth every twenty-four hoursRanolazine ER 500 MG 1 tablet once a day Activevalsartan 320 mg oral tablet (20 sources)Angiotensin 2 Receptor BlockerStart: 02-15-2024 End: 51-26-5189lznt 1 tablet by mouth once dailyValsartan 320 mg tablet Active 0 .ROUTE .COMPLEX 90 November 30, 2024 12:19pm TAKE 1 TABLET BY MOUTH EVERY DAY Complies with drug therapyStart: 12-27-2020 End: 25-30-4432Qrjcgieku 320 mg tablet Discontinued 320 MG PO As Directed December 27, 2020 12:00am February 15, 2024 11:50amVitamin D-3 1000 UNIT (4 sources)take 1 capsule by mouth once dailyVitamin D-3 1000 UNIT 1 capsule Orally Once a day Active Completed/Discontinued Medications MedicationDrug Class(es)DatesSig (Normalized)Sig (Original)amLODIPine 5 mg oral tablet (6 sources)Dihydropyridine Calcium Channel BlockerStart: 05-13-2024 End: 90-16-7784pjmz 1 tablet by mouth once dailyAmlodipine 5 mg tablet Discontinued 5 MG PO Daily May 13, 2024 1:00am May 13, 2024 10:08am Start: 24-26-1695vbfu 1 tablet by mouth once dailyamLODIPine 5 mg Tab 5 mg = 1 tab(s), Oral, Daily, # 90 tab(s), Refills(s) 3, Pharmacy: [facility]/pharmacy#[id number], 164, cm, 03/19/23 13:02:00 EST, Height/Length Dosing, 95.1, kg, 03/19/23 13:02:00 EST, Weight Dosing Start Date: 03/19/23 Status: Orderedamoxicillin 500 mg oral capsule (2 sources)Penicillin-class AntibacterialStart: 05-13-2024 End: 01-00-1984dgpj 1 capsule by mouth twice dailyAmoxicillin 500 mg capsule Discontinued 500 MG PO Twice daily 22 01May 13, 2024 1:00am May 17, 2024 10:21ambenzonatate 200 mg oral capsule (2 sources)Non-narcotic AntitussiveStart: 05-17-2024 End: 61-76-0398Fwcaibqtvnq 200 mg capsule Discontinued 200 MG PO 2-3 TIMES PER DAY as needed for cough 2024 1:00am January 10, 2025 8:54am bumetanide 1 mg oral tablet (20 sources)Loop DiureticStart: 12-27-2020 End: 91-48-7167Gxdpqiueks 1 mg tablet Discontinued 1 MG PO .prn August 31, 2023 8:45am February 29, 2024 9:47amclopidogrel 75 mg oral tablet (20 sources)P2Y12 Platelet InhibitorStart: 12-27-2020 End: 75-81-2373ufju 1 tablet by mouth once dailyClopidogrel 75 mg tablet Discontinued 75 MG PO Daily 90 July 23, 2023 2:59pm February 29, 2024 10:43amcyproheptadine hydrochloride 4 mg oral tablet (12 sources)Start: 12-27-2020 End: 08-76-7280Muokwtzuuhynny 4 mg tablet Discontinued 4 MG PO As Directed as needed for Headache December 27, 2020 12:00am February 29, 2024 9:47amtake 2 tablets by mouth every eight hoursCyproheptadine HCl - 4 MG Oral Tablet TAKE 2 TABLET Every 8 hours Quantity: 0 Refills: 0 Ordered: 19-Mar-2021 DO Active diclofenac sodium 0.01 mg/mg topical gel (5 sources)Nonsteroidal Anti-inflammatory DrugStart: 57-77-2503rmiwiistcy topical 1% gel 2 gm, Topical, TID, Refill(s) 0 Start Date: 09/07/22 Status: OrdereddilTIAZem hydrochloride 120 mg oral tablet (16 sources)Calcium Channel BlockerStart: 02-29-2024 End: 75-27-3601fbfc 1 tablet by mouth once dailyDiltiazem Hcl 120 mg tablet Discontinued 120 MG PO Daily February 29, 2024 1:00am February 29, 2024 9:48am FreeTextSi tablet once a day; Note: Source Status: Taking; Provider: Nick Billingsley ( )Start: 79-16-5380kqgc 1 capsule by mouth once dailyDilt-XR 120 MG Oral Capsule Extended Release 24 Hour TAKE 1 CAPSULE BY MOUTH EVERY DAY Quantity: 90Refills: 0 Ordered: 10-Apr-2021 Navdeep German DO Start : 10-Apr-2021 Activetake 1 tablet by mouth every twenty-four hoursdilTIAZem HCl 120 MG 1 tablet once a day Qtafqb03 hr isosorbide mononitrate 60 mg extended release oral tablet (20 sources)Nitrate VasodilatorStart: 12-27-2020 End: 07-93-8537Rxmgdgrsgf Mononitrate 60 mg tablet extended release 24 hr Discontinued 60 MG PO As Directed December 27, 2020 12:00am January 10, 2025 8:55amtake 1 tablet by mouth every twenty-four hoursIsosorbide Mononitrate ER 60 MG 1 tablet once a day Activemeloxicam 15 mg oral tablet (9 sources)Nonsteroidal Anti-inflammatory DrugStart: 11-22-2023 End: 70-58-8668xrru 1 tablet by mouth once dailyMeloxicam 15 mg tablet Discontinued 0 .ROUTE .COMPLEX November 22, 2023 6:36am February 29, 2024 9:49am TAKE 1 TABLET BY MOUTH EVERY DAYStart: 09-14-2023 End: 74-65-5849lkmn 1 tablet by mouth once dailyMeloxicam 15 mg tablet Discontinued 15 MG PO Daily September 14, 2023 12:00am November 22, 2023 6:36am 24 hr NIFEdipine 60 mg extended release oral tablet (7 sources)Dihydropyridine Calcium Channel BlockerStart: 12-27-2020 End: 40-60-3257Mewjtbjhjz 60 mg tablet extended release Discontinued 60 MG PO As Directed December 27, 2020 12:00am February 29, 2024 9:49amondansetron 4 mg disintegrating oral tablet (2 sources)Serotonin-3 Receptor AntagonistStart: 05-17-2024 End: 14-25-1357dmtr 1 tablet by mouth every eight hours as needed for nausea and vomitingOndansetron 4 mg tablet,disintegrating Discontinued 4 MG PO Q8H as needed for nausea and vomiting May 17, 2024 1:00am January 10, 2025 8:56amoseltamivir 75 mg oral capsule (3 sources)Neuraminidase InhibitorStart: 05-13-2024 End: 58-25-2327spuz 1 capsule by mouth twice dailyOseltamivir (Tamiflu) 75 mg capsule Discontinued 75 MG PO Twice daily 10 May 13, 2024 1:00am January 10, 2025 8:56ampotassium chloride 20 meq extended release oral tablet (18 sources)Start: 82-20-0806rpdb 1 tablet by mouth oncepotassium chloride 20 mEq ER Tab 40 mEq = 2 tab(s), Oral, Once, Take one time dose in preparation for cardiac cath, # 2 tab(s), Refills(s) 0, Pharmacy: [facility]/pharmacy #[id number], 164, cm, 04/08/22 9:20:00 EST, Height/Length Dosing, 94.2, kg, 04/08/22 9:20:00 EST, Weight Dosing Start Date: 04/08/22 Status: OrderedStart: 12-27-2020 End: 80-36-2985Yyltydigx Chloride 10 mEq tablet extended release Discontinued 10 MEQ PO As Directed December 27, 2020 12:00am February 29, 2024 9:49amtake 1 tablet by mouth at mealtime as neededKlor-Con M10 10 MEQ 1 tablet with food Orally prn w bumex Activespironolactone 25 mg oral tablet (12 sources)Aldosterone AntagonistStart: 02-29-2024 End: 30-40-8089tiqt 1 tablet by mouth once dailySpironolactone 25 mg tablet Discontinued 25 MG PO Daily February 29, 2024 1:00am January 10, 2025 8:56am FreeTextSi tablet once a day; Note: Source Status: Taking; Provider: Nick Billingsley ( )Start: 81-79-7651fmis 1 tablet by mouth once daily spironolactone 25 mg Tab 25 mg = 1 tab(s), Oral, Daily, # 60 tab(s), Refills(s) 3, Pharmacy: [facility]/pharmacy #[id number], 164, cm, 09/24/22 12:51:00 EDT, Height/Length Dosing, 91.4, kg, 09/24/22 12:51:00 EDT,Weight Dosing Start Date: 09/24/22 Status: Ordered Problems Active Problems Problem ClassificationProblemDateDocumented DateEpisodic/ChronicAbdominal pain (4 sources)Abdominal pain; Translations: [Unspecified abdominal pain]Episodic Acute and chronic tonsillitis (3 sources)Acute bacterial tonsillitis; Translations: [Acute tonsillitis due to other specified organisms]41-36-0307ZmecqpurWkvfypu disorders (6 sources)Anxiety disorder, unspecified; Translations: [Anxiety]Onset: 368008-60-1621RjaktrlAaolyce and circulatory congenital anomalies (10 sources)Premature closure of foramen ovale; Translations: [Other bulbus cordis anomalies and anomalies of cardiac septal closure]38-12-4070Sejhzkv Cardiac dysrhythmias (10 sources)Tachycardia; Translations: [Tachycardia, unspecified]08-14-2022 EpisodicCongestive heart failure; nonhypertensive (5 sources)Congestive heart lotistx51-57-7948BcfoyibPkryltbd atherosclerosis and other heart disease (20 sources)History of myocardial infarction; Translations: [Old myocardial infarction]Onset: 932136-32-3230DqahevpKlodaljkpa and other anemia (5 sources)Reopjr63-14-2513ZzvprfnwBvbkmibqpv and other anemia (4 sources)Iron deficiency anemia; Translations: [Iron deficiency anemia, unspecified]EpisodicDeficiency and other anemia (1 source)Iron deficiency anemia, unspecifiedEpisodicDiabetes mellitus with complications (3 sources)Hyperglycemia due to type 2 diabetes mellitus; Translations: [Type 2 diabetes mellitus with hyperglycemia]23-15-2915QjxgefuPqvefjru mellitus without complication (12 sources)Hyperglycemia, unspecified; Translations: [Other abnormal glucose] Onset: 00-65-7303ZpirfxgfKowbkzidh of lipid metabolism (20 sources)Hyperlipidemia; Translations: [Other and unspecified hyperlipidemia] Onset: 53-93-2338SanroxiYhckoqu on above:Problem List clean-up per request of Phys. EHR CmteEssential hypertension (20 sources)Benign essential hypertension; Translations: [Benign essential hypertension]Onset: 72-54-0222TigfpxtCasgeuglj and duodenitis (4 sources)Gastritis; Translations: [Gastritis, unspecified, without bleeding] EpisodicGastrointestinal hemorrhage (7 sources)Hematochezia; Translations: [Melena]79-66-1212EyubofetVhvjgpv on above:Problem List clean-up per request of Phys. EHR CmteHeart valve disorders (5 sources)Mitral valve tesetksex98-11-0684IltaqebVfzqikunvdgg with complications and secondary hypertension (1 source)Hypertensive urgency; Translations: [HYPERTENSIVE URGENCY]Onset: 56-28-4911AdgvbftVurlzxzlvppwj and screening for infectious disease (1 source)Contact with or exposure to other viral diseases; Translations: [Exposure to 2019 novel coronavirus]27-51-7727MfzglgsgLrbofevdj (5 sources)Influenza due to Influenza A virus; Translations: [Influenza due to other identified influenza virus with other respiratory manifestations] 32-15-4135NaylytzwBbudugc and fatigue (16 sources)Fatigue; Translations: [Other fatigue]85-46-1696FyzfcuvrJlbssdd (5 sources)Pityriasis fsgodcgtkv21-21-4188IcfyhkidSedrrz and vomiting (4 sources)Nausea; Translations: [Nausea]EpisodicNonspecific chest pain (10 sources)Chest pain; Translations: [Chest pain, unspecified]Onset: 04-07-2022 EpisodicNutritional deficiencies (6 sources)Vitamin D deficiency, unspecified; Translations: [Vitamin D deficiency]Onset: 591739-59-2335MvlronwCxkynhuekdmiop (5 sources)Bilateral osteoarthritis of -54-0233HhpknyoKyucp endocrine disorders (4 sources)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, simple virilizing type; Translations: [Adrenogenital disorder,unspecified]ChronicOther gastrointestinal disorders (4 sources)Irritable bowel syndrome; Translations: [Irritable bowel syndrome without diarrhea]ChronicOther gastrointestinal disorders (4 sources)Swollen abdomen; Translations: [Abdominal distension (gaseous)] EpisodicOther gastrointestinal disorders (4 sources)Constipation alternates with diarrhea; Translations: [Other specified symptoms and signs involving the digestive system and abdomen]EpisodicOther gastrointestinal disorders (6 sources)Abdominal bloating; Translations: [Abdominal distension (gaseous)] 40-60-7217KysulglwPsedr gastrointestinal disorders (4 sources)Abdominal distension (gaseous); Translations: [Flatulence, eructation, and gas pain]65-52-5640PmkmidyoPwqhv lower respiratory disease (1 source)Dyspnea; Translations: [Shortness of breath]Onset: 77-22-6564Zaryzcxc Other nervous system disorders (3 sources)Facial paresthesia; Translations: [Paresthesia of skin]02-29-2024 EpisodicOther nervous system disorders (2 sources)Paresthesia of skin; Translations: [Disturbance of skin sensation] 54-93-1957BmqbtpcfSvuwq non-traumatic joint disorders (4 sources)Pain in joints of left hand; Translations: [PAIN IN JOINTS OF LEFT HAND]Onset: 98-51-3174SjpghvblCkavv non-traumatic joint disorders (12 sources)Pain in left knee; Translations: [Left knee pain]84-80-2379Uxnlfypm Other nutritional; endocrine; and metabolic disorders (5 sources)Obesity; Translations: [Obesity, unspecified]ChronicOther nutritional; endocrine; and metabolic disorders (4 sources)Body mass index 25-29 - overweight; Translations: [Body mass index (BMI) 29.0-29.9, adult]EpisodicOther nutritional; endocrine; and metabolic disorders (4 sources)Loss of appetite; Translations: [Anorexia]EpisodicOther nutritional; endocrine; and metabolic disorders (4 sources)Weight decreased; Translations: [Abnormal weight loss]EpisodicOther screening for suspected conditions (not mental disorders or infectious disease) (2 sources)Patient encounter status; Translations: [Encounter for screening mammogram for malignant neoplasm of breast]33-10-7850IxgyxxgaLtrat upper respiratory infections (4 sources)Acute pharyngitis, unspecified; Translations: [Acute pharyngitis] 84-48-5413TefcngduUrhjyfvlvs and visceral atherosclerosis (5 sources)Arteriosclerotic vascular dznwydd44-85-4342ArjuxitRdepdovt codes; unclassified (6 sources)Obstructive sleep apnea syndrome; Translations: [Obstructive sleep apnea (adult) (pediatric)]43-00-2596EifkfttJkkouywo codes; unclassified (2 sources)Obstructive sleep apnea (adult) (pediatric); Translations: [Obstructive sleep apnea (adult)(pediatric)]52-49-7216NbbocaeNanppesvvqc; intervertebral disc disorders; other back problems (4 sources)Unspecified inflammatory spondylopathy, cervical region; Translations: [UNS INFLAM SPONDYLOPATHIES CERV RGN]Onset: 71-81-0549Qtifgic Spondylosis; intervertebral disc disorders; other back problems (14 sources)Lumbar radiculopathy; Translations: [Radiculopathy, lumbar region] 91-50-4826QsszjyahIepckszmy cerebral ischemia (5 sources)Transient cerebral eyimspec49-98-6830ReqwxoiArtqm infection (3 sources)Disease caused by 2019-nCoV; Translations: [COVID-19]12-28-2023 Episodic Past or Other Problems Problem ClassificationProblemDateDocumented DateEpisodic/ChronicCoagulation and hemorrhagic disorders (1 source)Hemorrhagic condition, unspecified; Translations: [HEMORRHAGIC CONDITION UNSPECIFIED]Onset: 40-17-1912MmetddmdKpzhirzinv and other anemia (4 sources)Anemia, unspecified; Translations: [ANEMIA UNSPECIFIED]Onset: 52-41-9073BkmjljpmOuwiwedhh of teeth and jaw (5 sources)Other specified disorders of teeth and supporting structures; Translations: [Periapical abscess without sinus]Onset: 60-50-1770CmedswiaGylmj aftercare (1 source)Other correction (current) drug therapy; Translations: [OTH [facility] CURRENT DRUG THERAPY]Onset: 33-86-3287YhntajuxPapue aftercare (1 source)correction (current) use of aspirin; Translations: [HEAD OF COMMISSION DEPARTMENT CURRENT USE OF ASPIRIN]Onset: 72-95-6958VxitrffbDlvut aftercare (1 source)correction (current) use of oral hypoglycemic drugs; Translations: [FDC USE ORAL HYPOGLYCEMIC DX]Onset: 83-91-2848MozkagyjVahoe circulatory disease (1 source)Personal history of transient ischemic attack (TIA), and cerebral infarction without residual deficits; Translations: [PERS HX TIA AND CI NO RESID DEFICIT]Onset: 69-87-2893BvkorhfwLnonf connective tissue disease (1 source)Other muscle spasm; Translations: [OTHER MUSCLE SPASM]Onset: 25-94-4071CgftjbfqGdintmrh codes; unclassified (1 source)Acquired absence of other specified parts of digestive tract; Translations: [ACQ ABSENCE OTH PART DIGESTV TRACT]Onset: 73-50-9670Vfgmzyqd Unclassified (5 sources)Never smoked tobacco; Translations: [Never a smoker] Results Test NameValueInterpretationReference RangeFacilityED Clinical Summaryon [id number] Clinical SummaryED Clinical Summary [address] [address] ED Clinical Summary Person Information Name: ALEXA CAREY[facility] Age: 54 Years : 1970 Sex: Female Language: Georgian PCP: BENSON ROMERO MD Marital Status: Single [...] 12/16/2024 12:20:41 12/16/2024 12:20:41 12/16/2024 12:20:41 ADDRESS: [address] [place] [id number] PHYS DOC NOTES: MEDICAL INFORMATION: Prescriptions Given: [...] Follow up: With: Address: When: BENSON ROMERO [address] [place] [id number] [employer] (1) In 3 days 12/19/2024 Comments: Follow-up with your dentist DIAGNOSIS: Bleeding post tooth extraction; Post surgical complicationNoCasper Stoner Medical CenterED Note-Physicianon 75-16-3914TO Note-PhysicianED Note-Physician Basic Information Time Seen: Michael Espino PA-C 12/16/2024 11:14 Chief Complaint Pt states tooth extraction on 12/08. Pt states that she was at the [facility] for cauterization after the extraction d/t bleeding. [...] does take aspirin and Plavix with a his tory of CAD. No fever, chills, nausea or [...] Topical, Once, Stop date 12/16/24 11:24:00 EDT, STAT,Start date 12/16/24 11:24:00 EDT, 12/16/24 11:24:00 EDT Medications Administered Given tranexamic acid 100 mg/mL intravenous solution, 1000 mg, Topical Disposition Plan Patient Discharge Condition Disposition: Discharged home Condition: Improved and stable Counseled: Patient and/or family were counseled to workup, results, treatment plan and follow-up recommendations Discharge Prescription List Prescriptions No active prescription medications Follow-up With When Contact Information BENSON NICK In 3 days 12/19/[address] [place] [address] Business (1) Additional Instructions: Follow-up with your [...] made to ensure accuracy, however, inadvertently computerized family psychologist mistakes may be present. Appropriate healthcare PPE [...] left heart (03/22/2023), Cardiac catheterization, left heart (04/08/2022),PCI (percutaneous coronary intervention) of left anterior descending branch of coronary artery (04/08/2022), Appendectomy, section, Colposcope, Gall bladder, Hysterectomy, Oophorectomy. Medications Inpatient No active inpatient medications Home amLODIPine 5 mg Tab, 5 mg= 1 tab(s), Oral, Daily, 3 refills, Not taking aspirin 81 mg Oral EC Tab, 81 mg= 1 tab(s), Oral, Daily atenolol 50 (more content not included)...[facility] Comment on above:Result Comment: Electronically Signed By: Michael Espino PA-C\.br\Date and Time Signed: 12/17/2511:31 EDT\.br\Electronically Co-Signed By: Gerry Sotelo MD\.br\Date and Time Co-Signed: 12/16/24 20:19 EDTED Patient Summaryon [id number] Patient SummaryED Patient Summary [place] [address] Patient Discharge Instructions Person Information Name: ALEXA CAREY Age: 54 Years Arrival Date: 12/16/2024 11:11:44 Discharge Diagnosis: Bleeding post tooth extraction; Post surgical complication Primary Care Physician: BENSON ROMERO MD Provider Information Primary Provider: Gerry Sotelo MD Advanced [employer] Chemist:Michael Espino PA-C The exam and treatment you received in the Emergency Department were for an urgent problem and are not intended as complete care. It is important that you follow up with a doctor, nurse practitioner,or physician???s bilingual medical assistant for ongoing care. If your symptoms become worse or you do not improve asexpected and you are unable to reach your usual health care provider, you should return to the Emergency Department. We are available 24 hours a day. ALEXA CAREY has been given the following list of patient education materials, prescriptions and follow-up instructions: Follow-up Instructions: With: Address: When: BENSON ROMERO [address] [place], [place] [id number] Business (1) In 3 days 12/19/2024 Comments: [...] opioids can be used to help relieve rscdjrdi-lc-hsxlck pain and are often prescribed following a [...] guidance from the Food and Drug Administration (www.fda.gov/Drugs/ResourcesForYou). ??? Visit www.cdc.gov/drugoverdose to learn about the risks of opioids abuse and overdose. ? (more content not included)...[facility] HospitalInfluenza virus A and B and SARS-CoV-2 (COVID-19) RNA panel - Respiratory system specon 71-09-6420Ucemejjqe virus A and B RNA and SARS-CoV-2 (COVID-19) N gene panel RAJINDER+probe (Resp)Influenza virus A and B and SARS-CoV-2 (COVID-19) RNA panel - Respiratory system specCity HospitalLaboratory - Microbiology and Antimicrobial susceptibilityon 12-30-5777TSKP-CoV-2 (COVID-19) RNA RAJINDER+probe Ql (Unsp spec)NegativeCity HospitalNo Panel InformationOrdered By: Chelsy Palacios on 68-80-1540Uqbui Strep (POC)City HospitalNo Panel Informationon 19-00-7957DEB Influenza B (RAJINDER) NegativeCity HospitalBasophils Auto (Bld) [#/Vol]on 32-15-1485Hsfedmcbk (Bld) [#/Vol]Automated basophil count0.0-0.1FTrinity Health System East CampusBasophils/100 WBC Auto (Bld)on 87-75-1979Ladmsaghz/100 WBC (Bld)Automated basophil %0.2-2.0[facility] Eosinophils/100 WBC Auto (Bld)on 80-42-4817Tkhntztxihz/100 WBC (Bld)Automated eosinophil %0.9-7.0City HospitalErythrocyte distribution width Auto (RBC) [Ratio]on 72-89-1825Ulumxymtrhy distribution width (RBC) [Ratio]Erythrocyte distribution width [Ratio] by Automated count11.0-15.0 City HospitalEstimated glomerular filtration rate (GFR) non- Americanon 16-96-9204KMB/1.73 sq M.predicted among non-blacks MDRD (S/P/Bld) [Vol rate/Area]Estimated glomerular filtration rate (GFR) non- AmericanLow>=60 mL/min/1.73m 2FTrinity Health System East CampusGlobulin Calc (S) [Mass/Vol]on 38-97-5942Upcmnerr (S) [Mass/Vol]Serum globulin measurement by calculation (mass/volume)City HospitalGlucose mean value [Mass/volume] in Blood Estimated from glycated hemoglobinon 33-71-0814Gbbhscv glucose Estimated from glycated hemoglobin (Bld) [Mass/Vol]Glucose mean value [Mass/volume] in Blood Estimated from glycated hemoglobinCity HospitalHematocrit Auto (Bld) [Volume fraction]on 61-30-9699Jxaexukqdj (Bld) [Volume fraction]Hematocrit [Volume Fraction] of Blood by Automated count 36.0-48.0City HospitalHemoglobin [Mass/volume] in Bloodon 37-26-1237Zrihbenayh (Bld) [Mass/Vol]Hemoglobin [Mass/volume] in Blood12.0-16.0 City HospitalLaboratory - Chemistry and Chemistry - challengeon 71-62-7071Surjjcb [Mass/Vol]3.8 g/dL3.4-5.0City HospitalALP [Catalytic activity/Vol]136 U/LPaag28-513KvkemxzqcCity HospitalALT [Catalytic activity/Vol]27 U/J15-46QihleqplmCity HospitalAST [Catalytic activity/Vol]19 U/F98-79AzwhcavyiCity Hospital Bilirubin [Mass/Vol]0.8 mg/dL0.2-1.0City HospitalCalcium [Mass/Vol]9.6 mg/dL8.5-10.1FTrinity Health System East CampusChloride [Moles/Vol] 107 mmol/B64-051UlmnkgbevCity HospitalCO2 [Moles/Vol]32.0 mmol/L 21.0-32.0City HospitalCreatinine [Mass/Vol]1.07 mg/dLHigh 0.55-1.02City HospitalGFR/1.73 sq M.predicted MDRD (S/P/Bld) [Vol rate/Area]mL/min/{1.73_m2}>=60 mL/min/1.73m 2FTrinity Health System East CampusGlucose [Mass/Vol]129 mg/sMYefy61-629WkmtoogprCity Hospital Potassium [Moles/Vol]3.4 mmol/LLow3.5-5.1FTrinity Health System East Campus Protein [Mass/Vol]7.8 g/dL6.4-8.2FWadsworth-Rittman Hospitalodium [Moles/Vol]145 mmol/E261-299SydzcrmcuCity HospitalTSH Qn2.270 m[IU]/L 0.358-3.740City HospitalUrea nitrogen [Mass/Vol]10.0 mg/dL 7.0-18.0City HospitalUrea nitrogen/Creatinine [Mass ratio] 9.3 mg/mgCity HospitalLaboratory - Hematology and Cell countson 34-25-3345KeM4o (Bld) [Mass fraction]6.3 %High4.5-6.2FTrinity Health System East CampusComment on above:ADA RECOMMENDED LIMIT 4.0 - 6.0ADA THERAPEUTIC TARGET < 7.0ACTION SUGGESTED> 7.0Immature granulocytes/100 WBC (Bld)0.2 %0.0-0.5 City HospitalLeukocytes [#/volume] corrected for nucleated erythrocytes in Blood by Automated counon 63-88-0764FTM corrected for nucl RBC Auto (Bld) [#/Vol]Leukocytes [#/volume] corrected for nucleated erythrocytes in Blood by Automated coun4.0-11.0City HospitalLymphocytes Auto (Bld) [#/Vol]on 61-37-8519Ftfjmwmfkrv (Bld) [#/Vol]Lymphocytes [#/volume] in Blood by Automated count1.2-3.8City HospitalLymphocytes/100 WBC Auto (Bld)on 14-37-7429Fhnwfaqetof/100 WBC (Bld)Lymphocytes/100 leukocytes in Blood by Automated count20.5-60.0Mercy HealthH Auto (RBC) [Entitic mass]on 88-81-0855XGI (RBC) [Entitic mass]MCH [Entitic mass] by Automated count26.7-34.0Mercy HealthHC Auto (RBC) [Mass/Vol]on 15-46-4880ECOG (RBC) [Mass/Vol]MCHC [Mass/volume] by Automated count29.9-35.2FTrinity Health System East CampusMCV Auto (RBC) [Entitic vol]on 98-29-9334TZO (RBC) [Entitic vol]MCV [Entitic volume] by Automated count 81.0-99.0City HospitalMicroalbumin [Mass/volume] in Urineon 63-89-8601Rgrvtde DL <= 20 mg/L (U) [Mass/Vol]Microalbumin [Mass/volume] in Urine<=30.0City HospitalMonocytes Auto (Bld) [#/Vol]on 40-49-6870Gcjpnxarp (Bld) [#/Vol]Automated blood monocyte count0.3-0.8City HospitalMonocytes/100 WBC Auto (Bld)on 24-55-6259Xiofdcehs/100 WBC (Bld)Automated monocyte %1.7-12.0[facility] Neutrophils Auto (Bld) [#/Vol]on 50-81-8449Feifxocbeex (Bld) [#/Vol]Neutrophils [#/volume] in Blood by Automated count1.4-6.5FTrinity Health System East Campus Neutrophils/100 WBC Auto (Bld)on 79-16-2551Inudqadmyzm/100 WBC (Bld)Automated neutrophil %43.0-75.0City HospitalNo Panel Informationon 44-04-3059Sgjzfmjxoos # (Auto)0.2 10 3/uL0.0-0.7FTrinity Health System East CampusImmature Granulocyte # (Auto)0.01 10 3/uL0.00-0.03City HospitalUrine Random Mqziqeukon239.77 mg/uTTqqg88.00-300.00City HospitalPlatelet mean volume Auto (Bld) [Entitic vol]on 96-88-6545Nzajtfor mean volume (Bld) [Entitic vol]Platelet mean volume [Entitic volume] in Blood by Automated countLow9.5-13.5FTrinity Health System East Campus Platelets Auto (Bld) [#/Vol]on 21-00-1460Qgoewywih (Bld) [#/Vol]Platelets [#/volume] in Blood by Automated zaisx294-815EgcbifoqoCity Hospital RBC Auto (Bld) [#/Vol]on 10-09-1449QKZ (Bld) [#/Vol]Erythrocytes [#/volume] in Blood by Automated count4.20-5.40Cleveland Clinicerum or plasma albumin/globulin mass ratioon 94-10-2956Aezexvr/Globulin [Mass ratio] Serum or plasma albumin/globulin mass ratioCity Hospital Serum or plasma anion gap determinationon 29-69-6193Kbewf gap [Moles/Vol]Serum or plasma anion gap determinationCity HospitalUrine microalbumin/creatinine mass ratioon 63-25-3443Mueouml/Creatinine DL <= 20 mg/L (U) [Mass ratio]Urine microalbumin/creatinine mass ratio0.0-29.9City HospitalComment on above:NO MICROALBUMINURIA 0-29 MG/GCLINICAL MICROALBUMINURIA 30-300 MG/GMACROALBUMINURIA >300 MG/GNo Panel Information Ordered By: Michelle Ross on 50-05-4031LWIME Antigen (POC)City HospitalQuick Strep (POC)City HospitalBasophils Auto (Bld) [#/Vol]on 07-64-4823Ategldzpa (Bld) [#/Vol]0.0 10 3/uL0.0-0.1FTrinity Health System East CampusBasophils/100 WBC Auto (Bld)on 58-98-4276Jubybmbvn/100 WBC (Bld)0.6 %0.2-2.0City HospitalCholesterol in LDL Calc [Mass/Vol]on 34-39-0499Fssgchvzmbl in LDL [Mass/Vol]65.8 mg/dLCity HospitalComment on above:<100 mg/dl REBGMXJ698-170 mg/dl NEAR OR ABOVE LIXFOHD922-919 mg/dl BORDERLINE WOLC203-437 mg/dl HIGH>190 mg/dl VERY HIGH Cholesterol in VLDL Calc [Mass/Vol]on 76-77-3826Gvffaiyvcoi in VLDL [Mass/Vol] 26.2 mg/dLCity HospitalEosinophils/100 WBC Auto (Bld)on 77-13-4996Vnywluvykuy/100 WBC (Bld)3.5 %0.9-7.0[facility] Erythrocyte distribution width Auto (RBC) [Ratio]on 53-04-7063Wuuxarchbzc distribution width (RBC) [Ratio]13.5 %11.0-15.0[facility] Estimated glomerular filtration rate (GFR) non- Americanon 08-31-2023 GFR/1.73 sq M.predicted among non-blacks MDRD (S/P/Bld) [Vol rate/Area] mL/min/{1.73_m2}>=60City HospitalGlobulin Calc (S) [Mass/Vol]on 05-47-0815Fsnzujjs (S) [Mass/Vol]3.7 g/dLCity HospitalHematocrit Auto (Bld) [Volume fraction]on 99-95-5442Ihreakqhcy (Bld) [Volume fraction]42.2 %36.0-48.0City HospitalHemoglobin [Mass/volume] in Bloodon 72-11-8282Fikpcmzxaq (Bld) [Mass/Vol]13.6 g/dL12.0-16.0 City HospitalLaboratory - Chemistry and Chemistry - challengeon 24-69-1035Crqyfmh [Mass/Vol]3.4 g/dL3.4-5.0City HospitalALP [Catalytic activity/Vol]120 U/NLxjg48-027KumkkprwlCity HospitalALT [Catalytic activity/Vol]28 U/J29-30AmtxlxzneCity HospitalAST [Catalytic activity/Vol]18 U/O08-46ImrkfypliCity Hospital Bilirubin [Mass/Vol]0.4 mg/dL0.2-1.0City HospitalCalcium [Mass/Vol]9.0 mg/dL8.5-10.1FTrinity Health System East CampusChloride [Moles/Vol] 108 mmol/PNghu81-382EjminomsdCity HospitalCholesterol [Mass/Vol]135 mg/dL<=200City HospitalCholesterol in HDL [Mass/Vol]43 mg/dL 40-60City HospitalComment on above:> or =60 mg/dl - LOW CARDIOVASCULAR RISK<40 mg/dl - HIGH CARDIOVASCULAR RISKCO2 [Moles/Vol]28.5 mmol/L21.0-32.0City HospitalCreatinine [Mass/Vol]0.85 mg/dL 0.55-1.02City HospitalGFR/1.73 sq M.predicted MDRD (S/P/Bld) [Vol rate/Area]mL/min/{1.73_m2}>=60City HospitalGlucose [Mass/Vol]125 mg/aFKvri57-641TkejssjxcCity HospitalPotassium [Moles/Vol]3.8 mmol/L3.5-5.1FTrinity Health System East CampusProtein [Mass/Vol] 7.1 g/dL6.4-8.2FWadsworth-Rittman Hospitalodium [Moles/Vol]143 mmol/L 136-145City HospitalTriglyceride [Mass/Vol]131 mg/dL<=150 City HospitalTSH Qn1.947 m[IU]/L0.358-3.740Firelands Regional Medical CenterUrea nitrogen [Mass/Vol]10.0 mg/dL7.0-18.0City HospitalUrea nitrogen/Creatinine [Mass ratio]11.8 mg/mgCity HospitalLaboratory - Hematology and Cell countson 08-31-2023 Immature granulocytes/100 WBC (Bld)0.2 %0.0-0.5FTrinity Health System East Campus Leukocytes [#/volume] corrected for nucleated erythrocytes in Blood by Automated counon 54-71-2248KYF corrected for nucl RBC Auto (Bld) [#/Vol]5.1 10 3/uL 4.0-11.0City HospitalLymphocytes Auto (Bld) [#/Vol]on 88-34-2052Dfztogtmqgk (Bld) [#/Vol]1.4 10 3/uL1.2-3.8City HospitalLymphocytes/100 WBC Auto (Bld)on 70-74-3537Nsfybqvkcmm/100 WBC (Bld)26.3 % 20.5-60.0Mercy HealthH Auto (RBC) [Entitic mass]on 19-08-0889HMJ (RBC) [Entitic mass]29.1 pg26.7-34.0City HospitalMCHC Auto (RBC) [Mass/Vol]on 93-55-5864HGPC (RBC) [Mass/Vol]32.2 g/dL 29.9-35.2FTrinity Health System East CampusMCV Auto (RBC) [Entitic vol]on 87-19-3409OMB (RBC) [Entitic vol]90.2 fL81.0-99.0City HospitalMonocytes Auto (Bld) [#/Vol]on 11-52-0101Oivjoggum (Bld) [#/Vol]0.5 10 3/uL0.3-0.8City HospitalMonocytes/100 WBC Auto (Bld)on 60-15-4579Vbphvynhd/100 WBC (Bld)9.9 %1.7-12.0[facility] Neutrophils Auto (Bld) [#/Vol]on 36-82-0336Rvlprrfujbp (Bld) [#/Vol]3.1 10 3/uL 1.4-6.5FTrinity Health System East CampusNeutrophils/100 WBC Auto (Bld)on 47-73-5270Xsjvvigglyv/100 WBC (Bld)59.5 %43.0-75.0City HospitalNo Panel Informationon 75-90-7173Ojnjpsqmnkf # (Auto)0.2 10 3/uL0.0-0.7 City HospitalImmature Granulocyte # (Auto)0.01 10 3/uL 0.00-0.03City HospitalPlatelet mean volume Auto (Bld) [Entitic vol]on 57-89-4218Azrhlcsn mean volume (Bld) [Entitic vol]9.1 fLLow 9.5-13.5FTrinity Health System East CampusPlatelets Auto (Bld) [#/Vol]on 49-78-3681Igjhlrjjp (Bld) [#/Vol]270 10 3/aW063-218NqhyxgcmqCity HospitalRBC Auto (Bld) [#/Vol]on 27-46-6867UWB (Bld) [#/Vol]4.68 10 6/uL4.20-5.40 [facility] Clinicerum or plasma albumin/globulin mass ratioon 70-15-8511Vwxhlrq/Globulin [Mass ratio]0.9 {ratio}Cleveland Clinicerum or plasma anion gap determinationon 74-75-5830Lokwi gap [Moles/Vol] 10.3 mmol/LFWadsworth-Rittman Hospitalerum or plasma total cholesterol/high density lipoprotein (HDL) cholesterol mass michele 08-31-2023 Cholesterol.total/Cholesterol in HDL [Mass ratio]3.1 {ratio}City HospitalComment on above:3.3 - 4.4 LOW RISK4.4 - 7.1 AVERAGE RISK7.1 - 11.0 MODERATE RISK>11.0 HIGH RISKXR HAND LT MIN 3Von 62-32-5876RQ HAND LT MIN 3V EXAM: XR HAND [...] authenticated by: MARIA L CURTIS Date: 2022-04-28 19:01[facility] HospitalCHEMISTRYOrdered By: SYSTEM SYSTEM on 93-54-4189Pdcdf gap [Moles/Vol]9 mmol/LNormal6 - 16 mEq/LFTMC RemisolCalcium [Mass/Vol]9.2 mg/dL Normal8.9 - 11.1 mg/dLFTMC RemisolChloride [Moles/Vol]105 mmol/TYuygkp795 - 111 mmol/LFTMC RemisolCO2 [Moles/Vol]28 mmol/QUvsjnk86 - 31 mmol/LFTMC Remisol Creatinine [Mass/Vol]0.9 mg/dLNormal0.5 - 1.3 mg/dLFTMC RemisolGFR/1.73 sq M.predicted among blacks MDRD (S/P/Bld) [Vol rate/Area]mL/min/1.73 j0Dwpqzu >=59mL/min/1.73 m2FT Chem SGFR/1.73 sq M.predicted among non-blacks MDRD (S/P/Bld) [Vol rate/Area]mL/min/1.73 q8Tlfkzu>=59mL/min/1.73 m2FT Chem S Glucose [Mass/Vol]112 mg/gHKvttza23 - 199 mg/dLFTMC RemisolPotassium [Moles/Vol] 3.3 mmol/LLow3.5 - 5.3 mmol/LFTMC RemisolSodium [Moles/Vol]139 mmol/OFuavtg866 - 145 mmol/LFTMC RemisolUrea nitrogen [Mass/Vol]14 mg/dLNormal5 - 21 mg/dLFTMC RemisolUrea nitrogen/Creatinine [Mass ratio]16 mg/yfUbrmtm64 - 20FTMC Remisol HEMATOLOGYOrdered By: kidthing SYSTEM on 50-95-0172Wznwmjctx/100 WBC (Bld)0.4 % Normal0.0 - 2.0 %[facility] HemeAutoSSBasophils/Leukocytes Auto (Bld) [Pure # fraction]0.0 E9/LNormal0.0 - 0.2 E9/LFTMC HemeAutoSSEosinophils/100 WBC (Bld)2.6 %Normal0.0 - 8.0 %[facility] HemeAutoSSEosinophils/Leukocytes Auto (Bld) [Pure # fraction]0.2 E9/LNormal0.0 - 0.5 E9/LFTMC HemeAutoSSLymphocytes/100 WBC (Bld) 26.6 %Xrquhg56.0 - 50.0 %[facility] HemeAutoSSLymphocytes/Leukocytes Auto (Bld) [Pure # fraction]1.8 E9/LNormal1.0 - 4.0 E9/LFTMC HemeAutoSSMonocytes/100 WBC (Bld)9.0 %Normal4.0 - 14.0 %[facility] HemeAutoSSMonocytes/Leukocytes Auto (Bld) [Pure # fraction]0.6 E9/LNormal0.2 - 1.0 E9/LFTMC HemeAutoSSNeutrophils/100 WBC (Bld) 61.4 %Mgflyo15.0 - 75.0 %[facility] HemeAutoSSNeutrophils/Leukocytes Auto (Bld) [Pure # fraction]4.1 E9/LNormal2.0 - 7.5 E9/LFTMC HemeAutoSSHEMATOLOGYOrdered By: Alee De La Rosa on 78-22-7551Hqmyulmqoae distribution width (RBC) [Ratio]14.1 % Ajewbx06.9 - 14.2 %[facility] HemeAutoSSHematocrit (Bld) [Volume fraction]42.5 %Normal 34.0 - 46.0 %[facility] HemeAutoSSHemoglobin (Bld) [Mass/Vol]14.5 g/fORwojwq78.0 - 16.0 gm/dLFTMC HemeAutoSSMCH (RBC) [Entitic mass]29.6 nyOkbsdg32.0 - 34.0 [facility] HemeAutoSSMCHC (RBC) [Mass/Vol]34.2 g/iBPrxbxk04.4 - 36.0 gm/dLFT HemeAutoSS MCV (RBC) [Entitic vol]86.7 uWAdmely90.0 - 100.0 fLMUSCOGEE HemeAutoSSPlatelet mean volume (Bld) [Entitic vol]7.3 fLNormal6.4 - 10.8 fLMUSCOGEE HemeAutoSSPlatelets (Bld) [#/Vol]316.0 E9/NXxcfme468.0 - 500.0 E9/LFTMC HemeAutoSSRBC (Bld) [#/Vol] 4.9 E12/LNormal4.3 - 5.9 E12/LFTMC HemeAutoSSWBC corrected for nucl RBC Auto (Bld) [#/Vol]6.7 E9/LNormal4.0 - 11.0 E9/LFTMC HemeAutoSSNM STRESS ONLY SINGLEon 52-76-8847AM STRESS ONLY SINGLEPatient: ALEXA CAREY Exam Date: 04/01/2022 : 1970 Gender:F Ordering : DR DARIUSZ KEEN . Admission #: [id number] Family : Order #: [id number] CLICK HERE TO VIEW EXAM RADIOLOGY REPORT [...] by: Laith Cárdenas M.D. on 04/07/2022 at 11:46NormalThAvita Health System AUTO DIFFon 91-10-5749INQX #0.0 103/ulNormal0.0-0.1The [facility] HospitalComment on above:Performed By: #### CBC #### [facility] [address] [address] [address] Therese KaiserBasophils/100 WBC (Bld)0.4 %Normal0.2-2.0[facility] Comment on above:Performed By: #### CBC #### [facility] [address] [place] [address] Dr. Therese Amin #0.2 103/ulNormal0.0-0.7The [facility] HospitalComment on above: Performed By: #### CBC #### [facility] [address] [address] [address] Therese Bynumosinophils/100 WBC (Bld)3.4 %Normal0.9-7.0[facility] Comment on above:Performed By: #### CBC #### [facility] [address] [address] [address] Therese Bynumrythrocyte distribution width (RBC) [Ratio]13.2 %Lkzfxc34.0-15.0 The [facility] HospitalComment on above:Performed By: #### CBC #### [facility] [address] [place] [address] Dr. Therese KaiserHematocrit (Bld) [Volume fraction]43.0 %Ueuufo17.0-48.0[facility] HospitalComment on above:Performed By: #### CBC #### [facility] [address] [place] [address] Dr. Therese KaiserHemoglobin (Bld) [Mass/Vol]13.9 g/sNBeftvr34.0-16.0The [facility] HospitalComment on above:Performed By: #### CBC #### [facility] [address] [place] [address] Dr. Therese Lyon #0.01 10e3/ulNormal0.00-0.03The [facility] HospitalComment on above:Performed By: #### CBC #### [facility] [address] [place] [address] Dr. Therese Lyon %0.2 %Normal0.0-0.5The [facility] HospitalComment on above: Performed By: #### CBC #### [facility] [address] [place] [address] Dr. Therese Dale #1.6 103/ulNormal1.2-3.8The [facility] HospitalComment on above:Performed By: #### CBC #### [facility] [address] [place] [address] Dr. Therese Cisneroshocytes/100 WBC (Bld)31.9 %Cijmrh69.5-60.0The [facility] HospitalComment on above:Performed By: #### CBC #### [facility] [address] [place] [address] Dr. Therese Joshua DIFF REQNONormalThe [facility] HospitalComment on above: Performed By: #### CBC #### [facility] [address] [place] [address] Dr. Therese Hampton (RBC) [Entitic mass]28.5 alLnipwd27.7-34.0The [facility] HospitalComment on above:Performed By: #### CBC #### [facility] [address] [place] [address] Dr. Therese Hampton (RBC) [Mass/Vol]32.3 g/qEXlqldk95.9-35.2The [facility] HospitalComment on above:Performed By: #### CBC #### [facility] [address] [place] [address] Dr. Therese Hampton (RBC) [Entitic vol]88.3 dIQqqeqy19.0-99.0The [facility] HospitalComment on above:Performed By: #### CBC #### [facility] [address] [place] [address] Dr. Therese Restrepo #0.5 103/ulNormal0.3-0.8The [facility] HospitalComment on above:Performed By: #### CBC #### [facility] [address] [place] [address] Dr. Therese Noblesocytes/100 WBC (Bld)10.3 %Normal1.7-12.0[facility] Comment on above:Performed By: #### CBC #### [facility] [address] [place] [address] Dr. Therese Nash #2.7 103/ulNormal1.4-6.5The [facility] HospitalComment on above:Performed By: #### CBC #### [facility] [address] [place] [address] Dr. Therese Fultonutrophils/100 WBC (Bld)53.8 %Hinrwk47.0-75.0The [facility] HospitalComment on above:Performed By: #### CBC #### [facility] [address] [place] [address] Dr. Therese Elmore mean volume (Bld) [Entitic vol]8.9 fLCritically low 9.5-13.5The [facility] HospitalComment on above:Performed By: #### CBC #### [facility] [address] [place] [address] Dr. Therese HusseinT295 103/fcYodokr655-310Atb [facility] HospitalComment on above: Performed By: #### CBC #### [facility] [address] [place] [address] Dr. Therese AlfaroC4.87 106/ulNormal4.20-5.40The [facility] HospitalComment on above:Performed By: #### CBC #### [facility] [address] [place] [address] Dr. Therese KaiserWBC5.0 103/ulNormal4.0-11.0The [facility] HospitalComment on above: Performed By: #### CBC #### [facility] [address] [place] [address] Dr. Therese BoswellIMEon [id number] Coag (PPP) [Relative time]0.95 {INR} NormalBlanchard Valley Health System Bluffton HospitalCommunson medical center on above:Performed By: #### PT, PTT #### [facility] [address] [place] [address] Dr. Therese Peter GUIDELINESSEE BELOWCleveland Clinic Medina HospitalComment on above:Result Comment: DESIRED INR: 2.0 - 3.0 CONDITIONS NOT LISTED BELOW 2.5 - 3.5 FOR PROSTHETIC HEART VALVE REPLACEMENT 2.5 - 3.5 RECURRENT THROMBOSIS Performed By: #### PT, PTT #### [facility] [address] [place] [address] Dr. Therese KaiserPT Coag (PPP) [Time]10.3 sNormal9.0-11.6ThAshtabula County Medical Center Comment on above:Performed By: #### PT, PTT #### [facility] [address] [place] [address] Dr. Therese Bashir [id number] Coag (Bld) [Time]27.6 oFrnnnc86.3-36.2[facility] Bluffton HospitalComment on above:Performed By: #### PT, PTT #### [facility] [address] [place] [address] Dr. Therese KaiserGLYCOHEMOGLOBIN A1Con [id number] RECOMMENDATIONSEE BELOWThe Surgical Hospital At SouthwoodsCommunson medical center on above:Result Comment: ADA RECOMMENDED LIMIT 4.0 - 6.0 ADA THERAPEUTIC TARGET < 7.0 ACTION SUGGESTED > 7.0Performed By: #### A1C ####[facility] [address] [place], [place] [address]Dr. Therese KaiserGlucose [Mass/Vol]128 mg/dLCleveland Clinic Medina HospitalCommunson medical center on above:Performed By: #### A1C ####[facility] [address] [place], [place] [address]Dr.Yilan KaiserHbA1c (Bld) [Mass fraction]6.1 %Normal 4.5-6.2The [facility] HospitalComment on above:Performed By: #### A1C ####[facility] [address] [address]Dr.Yilan SosaC AUTO DIFFon [id number] #0.0 103/ulNormal0.0-0.1The [facility] HospitalComment on above:Performed By: #### CBC #### [facility] [address] [address] [address] Therese KaiserBasophils/100 WBC (Bld)0.5 %Normal0.2-2.0The [facility] Comment on above:Performed By: #### CBC #### [facility] [address] [address] [address] Saleh ChangEO #0.2 103/ulNormal0.0-0.7The [facility] HospitalComment on above: Performed By: #### CBC #### [facility] [address] [address] [address] Therese Bynumosinophils/100 WBC (Bld)2.7 %Normal0.9-7.0The [facility] Comment on above:Performed By: #### CBC #### [facility] [address] [address] [address] Therese Bynumrythrocyte distribution width (RBC) [Ratio]14.1 %Plfqfr73.0-15.0 The [facility] HospitalComment on above:Performed By: #### CBC #### [facility] [address] [address] [address] Therese KaiserHematocrit (Bld) [Volume fraction]43.3 %Lotzro76.0-48.0The [facility] HospitalComment on above:Performed By: #### CBC #### [facility] [address] [address] [address] Therese KaiserHemoglobin (Bld) [Mass/Vol]14.0 g/eZUjqqoe69.0-16.0The [facility] on above:Performed By: #### CBC #### [facility] [address] [address] [address] Therese Lyon #0.02 10e3/ulNormal0.00-0.03The [facility] on above:Performed By: #### CBC #### [facility] [address] [place] [address] Dr. Therese Lyon %0.3 %Normal0.0-0.5The [facility] on above: Performed By: #### CBC #### [facility] [address] [place] [address] Dr. Therese Dale #1.8 103/ulNormal1.2-3.8The [facility] on above:Performed By: #### CBC #### [facility] [address] [place] [address] Dr. Therese Cisneroshocytes/100 WBC (Bld)27.6 %Vcuamf54.5-60.0The [facility] on above:Performed By: #### CBC #### [facility] [address] [place] [address] Dr. Therese GaviriaUAL DIFF REQNONormalThe [facility] on above: Performed By: #### CBC #### [facility] [address] [place] [address] Dr. Therese Hampton (RBC) [Entitic mass]28.7 lkBurzhh50.7-34.0The [facility] on above:Performed By: #### CBC #### [facility] [address] [place] [address] Dr. Therese Hampton (RBC) [Mass/Vol]32.3 g/kVJoakxk67.9-35.2The [facility] on above:Performed By: #### CBC #### [facility] [address] [place] [address] Dr. Therese Hampton (RBC) [Entitic vol]88.7 hGAlolyc04.0-99.0The [facility] HospitalComment on above:Performed By: #### CBC #### [facility] [address] [address] [address] Therese Restrepo #0.5 103/ulNormal0.3-0.8The [facility] HospitalComment on above:Performed By: #### CBC #### [facility] [address] [address] [address] Therese Noblesocytes/100 WBC (Bld)7.9 %Normal1.7-12.0The [facility] Comment on above:Performed By: #### CBC #### [facility] [address] [place] [address] Dr. Therese Nash #3.9 103/ulNormal1.4-6.5The [facility] HospitalComment on above:Performed By: #### CBC #### [facility] [address] [place] [address] Dr. Therese Fultonutrophils/100 WBC (Bld)61.0 %Nxxnjl67.0-75.0The [facility] HospitalComment on above:Performed By: #### CBC #### [facility] [address] [place] [address] Dr. Therese Elmore mean volume (Bld) [Entitic vol]8.9 fLCritically low 9.5-13.5The [facility] HospitalComment on above:Performed By: #### CBC #### [facility] [address] [place] [address] Dr. Therese KaiserPLT293 103/nhFkqlam713-832Yge [facility] HospitalComment on above: Performed By: #### CBC #### [facility] [address] [place] [address] Dr. Therese KaiserRBC4.88 106/ulNormal4.20-5.40The [facility] HospitalComment on above:Performed By: #### CBC #### [facility] [address] [place] [address] Dr. Therese KaiserWBC6.3 103/ulNormal4.0-11.0The [facility] Centerment on above: Performed By: #### CBC #### [facility] [address] [address] [address] Therese BarrowID PROFILEon 14-95-2746WLAB-HDL RATIO NORMSCleveland Clinic Children's Hospital for RehabilitationCommunson medical center on above:Result Comment: 3.3 - 4.4 LOW RISK 4.4 - 7.1 AVERAGE RISK 7.1 - 11.0 MODERATE RISK >11.0 HIGH RISKPerformed By: #### LIPID, TSH, CMP #### [facility] [address] [address] [address] Therese KaiserCholesterol [Mass/Vol]148 mg/dLNormal<=200[facility] Comment on above:Performed By: #### LIPID, TSH, CMP #### [facility] [address] [address] [address] Therese KaiserCholesterol in HDL [Mass/Vol]38 mg/dLCritically ywn68-09NuiBlanchard Valley Health System Bluffton HospitalComment on above:Performed By: #### LIPID, TSH, CMP #### [facility] [address] [address] [address] Therese KaiserCholesterol in LDL [Mass/Vol]70.8 mg/dLCleveland Clinic on above:Performed By: #### LIPID, TSH, CMP #### [facility] [address] [address] [address] Therese Khouryestermary.total/Cholesterol in HDL [Mass ratio]3.9 {ratio} NormalBlanchard Valley Health System Bluffton HospitalComment on above:Performed By: #### LIPID, TSH, CMP #### [facility] [address] [address] [address] Therese KaiserHDL NORMAL> or = 60 mg/dl - LOW CARDIOVASCULAR RISK <40 mg/dl - HIGH CARDIOVASCULAR RISKCleveland Clinic Medina HospitalCommunson medical center on above:Performed By: #### LIPID, TSH, CMP #### [facility] [address] [address] [address] Therese KaiserLDL CALC NORMALSEE Mercy HospitalComment on above:Result Comment: <100 mg/dl OPTIMAL 100 - 129 mg/dl NEAR OR ABOVE OPTIMAL 130 - 159 mg/dl BORDERLINE HIGH 160 - 189 mg/dl HIGH >190 mg/dl VERY HIGH Performed By: #### LIPID, TSH, CMP #### [facility] [address] [address] [address] Therese KaiserTriglyceride [Mass/Vol]196 mg/dLCritically high<=150The [facility] HospitalComment on above:Performed By: #### LIPID, TSH, CMP #### [facility] [address] [address] [address] Therese KaiserVLDL CALC39.2 mg/dLNormalThe [facility] HospitalComment on above: Performed By: #### LIPID, TSH, CMP #### [facility] [address] [place] [address] Dr. Therese KaiserPROF 14(COMP METB)on 65-29-5358Wuhqmxj [Mass/Vol]3.8 g/dLNormal 3.4-5.0The [facility] HospitalComment on above:Performed By: #### LIPID, TSH, CMP #### [facility] [address] [address] [address] Therese KaiserAlbumin/Globulin [Mass ratio]1.1 {ratio}NormalThe [facility] HospitalComment on above:Performed By: #### LIPID, TSH, CMP #### [facility] [address] [place] [address] Dr. Therese Romero [Catalytic activity/Vol]97 U/OBdkffj69-332Sau [facility] HospitalComment on above:Performed By: #### LIPID, TSH, CMP #### [facility] [address] [address] [address] Therese Hernández [Catalytic activity/Vol]47 U/XJcjjik92-37Wlg [facility] HospitalComment on above:Performed By: #### LIPID, TSH, CMP #### [facility] [address] [address] [address] Therese Pandya gap [Moles/Vol]12.5 mmol/LNormalThe [facility] Comment on above:Performed By: #### LIPID, TSH, CMP #### [facility] [address] [place] [address] Dr. Theerse KaiserAST [Catalytic activity/Vol]31 U/DHhykbm10-73Nhx [facility] HospitalComment on above:Performed By: #### LIPID, TSH, CMP #### [facility] [address] [place] [address] Dr. Therese KaiserBilirubin [Mass/Vol]0.4 mg/dLNormal0.2-1.0The [facility] Comment on above:Performed By: #### LIPID, TSH, CMP #### [facility] [address] [place] [address] Dr. Therese KaiserCalcium [Mass/Vol]9.2 mg/dLNormal8.5-10.1The [facility] Comment on above:Performed By: #### LIPID, TSH, CMP #### [facility] [address] [place] [address] Dr. Therese KaiserChloride [Moles/Vol]106 mmol/LYvymdz18-127Kxg [facility] Comment on above:Performed By: #### LIPID, TSH, CMP #### [facility] [address] [place] [address] Dr. Therese KaiserCO2 [Moles/Vol]26.1 mmol/RQlrtgi83.0-32.0[facility] Comment on above:Performed By: #### LIPID, TSH, CMP #### [facility] [address] [place] [address] Dr. Therese KaiserCreatinine [Mass/Vol]0.86 mg/dLNormal0.55-1.02The [facility] HospitalComment on above:Performed By: #### LIPID, TSH, CMP #### [facility] [address] [place] [address] Dr. Therese BynumGFR-AF IRISH>60Normal>=60The [facility] HospitalComment on above:Performed By: #### LIPID, TSH, CMP #### [facility] [address] [place] [address] Dr. Therese BynumGFR-NON AF IRISH>60Normal>=60The [facility] HospitalComment on above:Performed By: #### LIPID, TSH, CMP #### [facility] [address] [place] [address] Dr. Therese KaiserGlobulin (S) [Mass/Vol]3.6 g/dLNormMercer County Community HospitalComment on above:Performed By: #### LIPID, TSH, CMP #### [facility] [address] [place] [address] Dr. Therese KaiserGlucose [Mass/Vol]125 mg/dLCritically qdys57-209Qdd [facility] HospitalComment on above:Performed By: #### LIPID, TSH, CMP #### [facility] [address] [place] [address] Dr. Therese KaiserPotassium [Moles/Vol]3.6 mmol/LNormal3.5-5.1The [facility] Comment on above:Performed By: #### LIPID, TSH, CMP #### [facility] [address] [place] [address] Dr. Therese KaiserProtein [Mass/Vol]7.4 g/dLNormal6.4-8.2The [facility] Comment on above:Performed By: #### LIPID, TSH, CMP #### [facility] [address] [place] [address] Dr. Therese KaiserSodium [Moles/Vol]141 mmol/OJjqbkd956-367You [facility] Comment on above:Performed By: #### LIPID, TSH, CMP #### [facility] [address] [place] [address] Dr. Therese KaiserUrea nitrogen [Mass/Vol]12.0 mg/dLNormal7.0-18.0The [facility] HospitalComment on above:Performed By: #### LIPID, TSH, CMP #### [facility] [address] [place] [address] Dr. Therese KaiserUrea nitrogen/Creatinine [Mass ratio]14.0 mg/mgNoAdena Pike Medical CenterComment on above:Performed By: #### LIPID, TSH, CMP #### [facility] [address] [address] [address] Therese Martinez 94-43-7831SVD1.701 uIU/mLNormal0.358-3.740The [facility] HospitalComment on above:Performed By: #### LIPID, TSH, CMP #### [facility] [address] [address] [address] Therese BOURGEOIS Mercy HospitalComment on above: Result Comment: <0.34 UIU/ml HYPERTHYROID 0.34-5.60 UIU/ml EUTHYROID >5.60 UIU/ml HYPOTHYROIDPerformed By: #### LIPID, TSH, CMP #### [facility] [address] [place] [address] Dr. Therese KaiserVITAMIN D 25 OHon 03-34-3928KAX D 25-OH12.9 ng/mLNormalBlanchard Valley Health System Bluffton HospitalCommunson medical center on above:Performed By: #### VITAD #### [facility] [address] [place] [address] Dr. Therese IRELANDJenna Mercy HospitalComment on above: Result Comment: <20 ng/mL Vit D deficient 20 - <30 ng/mL Vit D insufficient 30 - 100 ng/mL Vit D sufficient >100 ng/mL Potential ToxicityPerformed By: #### VITAD #### [facility] [address] [place] [address] Dr. Therese Casas Visit (Cardiology)on 06-47-8734Nhcoiv-up visit Diagnoses/Problems Assessed Chest pain (786.50) (R07.9) Mostly non-exertional Relieve with NTG Hypertension, essential, benign (401.1) (I10) Suboptimal + TIMMY, cant tolerate CPAP Hyperlipidemia (272.4) (E78.5) Moderate intensity statin Annual labs with PCP Normal echocardiogram (V72.85) September 2020 Echo LVEF 60% Premature, closure, foramen ovale (745.8) (Q21.8) Nov 2019 PFO Closure Amplatzer 25mm ACS (acute coronary syndrome) (411.1) (I24.9) [facility] September 2020 Class 2 obesity with body mass index (BMI) of 36.0 to 36.9 in adult (278.00,V85.36) (E66.9,Z68.36) Reviewed the merits of healthy lifestyle choices on overall cardiovascular health. Coronary artery disease involving [place] coronary artery of [place] heart without angina pectoris (414.01) (I25.10) September [...] making process incorporating patients unique circumstances, the followingtreatment plan will be initiated: 1. Prescription drug management of cardiovascular medication for efficacy, adherence to treatment, side effect assessment and polypharmacy. Current treatment clinically warranted and to continue withfollowing modifications: - Stop nifedipine - Increase imdur 60mg po daily - Add Ranexa 500mg twice daily - Add Cardizem 120 once daIly 2. Return for follow-up; in the interim, contact the office if new symptoms arise. MILLER ROD MILL in 3 weeks Discussed the dynamic nature [...] of moderate-intensity aerobic activity. Brisk walking (at least2.5 miles per hour), water aerobics, gardening, biking [...] ovale repair Current Meds (more content not included)...NormalUH TouchworksTobacco Screening. on 25-14-2887Muaq risk assessmentc) Not medically indicatedVeterans Health Administration [employer] 250 DO Work Phone: Tobacco use status CPHSb) NoMP-[facility] [employer] 250 DO Work Phone: Lon 12-27-2020 Specimen: [id number] Received: 12/27/20 Status: EMILIE Patterson Num: [id number] Spec Type: Surgical Subm Dr: Frank Felix Jr, DO Tissues: A Colon Biopsy (RANDOM COLON BX) Procedures: RAMY Stain/2, Gross/Micro L4 Patient Age/Sex Location Account Attending Physician Alexa Carey/F [id number] Frank Felix Jr, DO SPEC NUM: [id number] RECD: 12/27/20 STATUS: EMILIE PATTERSON NUM: [id number] HARSHAL: 12/27/20- [facility] DR: Frank Felix Jr, DO ENTERED: 12/27/20-5 [facility] DR: SPEC TYPE: Surgical DEPT: S ORDERED: [...] support the above pathologic diagnosis. CPT Codes 67461 Specimen: [id number] Received: 12/27/20 Status: EMILIE Patterson Num: [id number] Spec Type: Surgical Subm Dr: Frank Felix Jr, DO Tissues: A Colon Biopsy (RANDOM COLON BX) Procedures: HE Stain/2, Gross/Micro L4 Patient: Alexa Carey [id number] (Continued) Signed (signature on file) Yaniv May MD 12/30/20 1422Galion HospitalCOVID-19 Antigenon 69-42-4571ISAYP-19 AntigenHealthcare Worker?: Y Alessandro Reference Alessandro Reference Negative [...] its performance Alessandro Disclaimer characteristic determined by [employer] and Alessandro Disclaimer validated at [facility]. This Alessandro Disclaimer test has not [...] is terminated or revoked sooner. PERFORMED BY: [facility] [address] [place] [address] PATHOLOGIST WORKERS' COMPENSATION CLAIMS EXAMINER SUKI LAZAR M.D.Galion HospitalComment on above: Performed By: #### CARLITOSEG, COVID-19 ALESSANDRO #### [facility] [address] [place] [address] USASofia Ag Negativeon 28-04-8314Dzrvv Ag NegativeNegative NormalNegativeCity HospitalComment on above:Result Comment: This is a duplicate Alessandro SARS Antigen (JOANNA) result to be used for statistical tracking purpose only. PERFORMED BY: [facility] [address] [place] [address] PATHOLOGIST WORKERS' COMPENSATION CLAIMS EXAMINER SUKI LAZAR M.D.Performed By: #### CARLITOSEG, COVID-19 ALESSANDRO #### [facility] [address] [place] [address] USACNCOon 24-37-9658BUDTMxadup TextNormalCClinton Memorial Hospital METABOLIC PANELon 19-91-1628Ngzowdz [Mass/Vol]9.4 mg/dLNormal 8.6-10.3The [facility] HospitalComment on above:Order Comment: No: Do not add to previous drawPerformed By: #### 91623, 69093 ####[facility] [place] [address], USAChloride [Moles/Vol]103 mmol/BKwdaqb45-358Tem [facility] HospitalComment on above:Order Comment: No: Do not add to previous drawPerformed By: #### 56694, 66862 ####[facility] [place] [address], USACO2 [Moles/Vol]31 mmol/DQypurr02-74Vmi [facility] HospitalComment on above:Order Comment: No: Do not add to previous drawPerformed By: #### 62015, 45907 ####[facility] [place] [address], USACreatinine [Mass/Vol]0.93 mg/dLNormal0.60-1.20The [facility] HospitalComment on above:Order Comment: No: Do not add to previous drawPerformed By: #### 43037, 22175 ####[facility] [place] [address], USAGFR/1.73 sq M.predicted among blacks MDRD (S/P/Bld) [Vol rate/Area]mL/min/{1.73_m2}Normal>60The [facility] HospitalComment on above:Order Comment: No: Do not add to previous drawPerformed By: #### 48076, 97874 ####[facility] [place] [address], USAGFR/1.73 sq M.predicted among non-blacks MDRD (S/P/Bld) [Vol rate/Area]mL/min/{1.73_m2}Normal>60The [facility] HospitalComment on above:Order Comment: No: Do not add to previous drawPerformed By: #### 21181, 32957 ####[facility] [place] [address], USAGlucose [Mass/Vol]106 mg/uNUlle45-151Gln [facility] HospitalComment on above:Order Comment: No: Do not add to previous drawPerformed By: #### 21714, 66125 ####[facility] [place] [address], [place] Potassium [Moles/Vol]3.8 mmol/LNormal3.5-5.1The [facility] HospitalComment on above:Order Comment: No: Do not add to previous drawPerformed By: #### 00569, 41520 ####[facility] [place] [address], USASodium [Moles/Vol]140 mmol/NRcoztj521-096Qsh [facility] HospitalComment on above:Order Comment: No: Do not add to previous drawPerformed By: #### 90945, 01784 ####[facility] [place] [address], USAUrea nitrogen [Mass/Vol]13 mg/dL Normal7-25The [facility] HospitalComment on above:Order Comment: No: Do not add to previous drawPerformed By: #### 36443, 72400 ####[facility] [facility] [place] [address], [facility] CARE CENTERCBC W/DIFFon 82-83-7135LUT IMM GRANS0.0 10*3/uLNormal0.0-0.2The [facility] HospitalComment on above:Order Comment: No: Do not add to previous drawPerformed By: #### 03293, 84858, 19544 #### [facility] [address] [facility] [place] [address], USAABS NEUTROPHILS4.3 10*3/uLNormal1.6-7.6The [facility] HospitalComment on above:Order Comment: No: Do not add to previous drawPerformed By: #### 28376, 65837, 21107 #### [facility] [address] [facility] [place] [address], USABasophils (Bld) [#/Vol]0.0 10*3/uLNormal0.0-0.2The [facility] HospitalComment on above:Order Comment: No: Do not add to previous drawPerformed By: #### 10808, 55498, 83520 #### [facility] [address] [facility] [place] [address], USABasophils/100 WBC (Bld)0.4 %Normal0.0-1.0The [facility] HospitalComment on above:Order Comment: No: Do not add to previous drawPerformed By: #### 27317, 59468, 71262 #### [facility] [address] [facility] [place] [address], USAEosinophils (Bld) [#/Vol]0.2 10*3/uLNormal0.0-0.5The [facility] HospitalComment on above:Order Comment: No: Do not add to previous drawPerformed By: #### 34932, 61104, 28210 #### [facility] [address] [facility] [place] [address], USAEosinophils/100 WBC (Bld)2.7 %Normal0.0-6.0The [facility] HospitalComment on above:Order Comment: No: Do not add to previous drawPerformed By: #### 49459, 58802, 49176 #### [facility] [address] [place] [address], USAErythrocyte distribution width (RBC) [Ratio]13.4 %Normal 11.5-15.0The [facility] HospitalComment on above:Order Comment: No: Do not add to previous drawPerformed By: #### 81848, 10324, 57806 #### [facility] [address] [facility] [place] [address], USAHematocrit (Bld) [Volume fraction]38.8 %Pokukd18.0-45.0The [facility] HospitalComment on above:Order Comment: No: Do not add to previous drawPerformed By: #### 10579, 39806, 02720 #### [facility] [address] [place] [address], USAHemoglobin (Bld) [Mass/Vol]12.7 g/rUOfqmhk05.0-15.0The [facility] HospitalComment on above:Order Comment: No: Do not add to previous drawPerformed By: #### 47060, 52309, 35308 #### [facility] [address] [place] [place] [address], USAIMMATURE GRANS0.4 %Normal0.0-1.0The [facility] HospitalComment on above:Order Comment: No: Do not add to previous draw Performed By: #### 02394, 75015, 49432 #### [facility] [address] [facility] [place] [address], USALymphocytes (Bld) [#/Vol]1.7 10*3/uLNormal1.2-4.0The [facility] HospitalComment on above:Order Comment: No: Do not add to previous drawPerformed By: #### 61799, 30767, 40430 #### [facility] [address] [place] [address], [facility] CARE CENTERLymphocytes/100 WBC (Bld)24.4 %Yfavfp98.0-45.0The [facility] HospitalComment on above:Order Comment: No: Do not add to previous drawPerformed By: #### 19121, 41899, 99289 #### [facility] [address] [place] [address], [facility] (RBC) [Entitic mass]29.8 htGicilj70.0-33.0The [facility] HospitalComment on above:Order Comment: No: Do not add to previous drawPerformed By: #### 05366, 14028, 66950 #### [facility] [address] [place] [address], [facility] (RBC) [Mass/Vol]32.7 g/xFWxppgw02.0-35.0The [facility] HospitalComment on above:Order Comment: No: Do not add to previous drawPerformed By: #### 27219, 45973, 03040 #### [facility] [address] [place] [address], [facility] (RBC) [Entitic vol]91.1 eGZjqhzo36.0-98.0The [facility] HospitalComment on above:Order Comment: No: Do not add to previous drawPerformed By: #### 74981, 99549, 87756 #### [facility] [address] [place] [address], [facility] CENTERMonocytes (Bld) [#/Vol]0.7 10*3/uLNormal0.1-1.0The [facility] HospitalComment on above:Order Comment: No: Do not add to previous drawPerformed By: #### 44850, 15773, 29000 #### [facility] [address] [place] [address], CZDLJDEM20.1 %Normal5.0-12.0The [facility] HospitalComment on above:Order Comment: No: Do not add to previous drawPerformed By: #### 92121, 88419, 37783 #### [facility] [address] [place] [address], USANeutrophils/100 WBC (Bld)62.0 %Eursrg57.0-72.0The [facility] HospitalComment on above:Order Comment: No: Do not add to previous drawPerformed By: #### 80028, 91672, 65712 #### [facility] [address] [place] [address], USANucleated RBC/100 WBC (Bld) [Ratio]0 %Normal0-0The [facility] HospitalComment on above:Order Comment: No: Do not add to previous drawPerformed By: #### 31010, 15454, 29567 #### [facility] [address] [place] [address], USAPLAT HRB401 10*3/lNDtzprn209-104Wgj [facility] HospitalComment on above:Order Comment: No: Do not add to previous draw Performed By: #### 91158, 74168, 00965 #### [facility] [address] [place] [address], USARBC (Bld) [#/Vol]4.26 10*6/uLNormal3.80-5.00The [facility] HospitalComment on above:Order Comment: No: Do not add to previous drawPerformed By: #### 30273, 16602, 80241 #### [facility] [address] [place] [address], USAWBC (Bld) [#/Vol]7.00 10*3/uLNormal4.00-10.60The [facility] HospitalComment on above:Order Comment: No: Do not add to previous drawPerformed By: #### 55269, 83206, 66359 #### [facility] [address] [place] [address], USALIPID PROFILEon 49-38-5591Ybukqrezqdi [Mass/Vol]113 mg/dL Fzv939-790Esp [facility] HospitalComment on above:Order Comment: No: Do not add to previous drawResult Comment: CHOLESTEROL REFERENCE RANGE: 20 YEARS AND OLDER CARDIOVASCULAR RISK Less than 200 mg/dl Low Risk 200 to 239 mg/dl Borderline Risk 240 mg/dl and greater High RiskPerformed By: #### 00820, 98513 ####[facility] [facility] [place] [address], USACholesterol in HDL [Mass/Vol]31 mg/zHTatshc56-79Ioj [facility] HospitalComment on above:Order Comment: No: Do not add to previous drawResult Comment: Slight variation in normal range could be due to gender and/or age. HDL CHOLESTEROL REFERENCE RANGE: 20 years and older Cardiovascular Risk > or =60 mg/dL Desirable 40 TO 59 mg/dL Low Risk <40 mg/dL High RiskPerformed By: #### 63868, 05360 ####[facility] [facility] [place] [address], USACholesterol in LDL [Mass/Vol]51 mg/dLNormal0-130The [facility] HospitalComment on above:Order Comment: No: Do not add to previous drawResult Comment: LDL IS A CALCULATION LDL IS ONLY VALID IF THE TRIG IS LESS THAN 400.Performed By: #### 52075, 19813 ####[facility] [facility] [place] [address], [place] Cholesterol.total/Cholesterol in HDL [Mass ratio]3.6 {ratio}Normal0.0-4.5The [facility] HospitalComment on above:Order Comment: No: Do not add to previous drawPerformed By: #### 74895, 00169 ####[facility] [place] [address], USANON-HDL LLEBUMIZQPO52 mg/dLNoHarrison Community HospitalComment on above:Order Comment: No: Do not add to previous drawPerformed By: #### 31838, 88067 ####[facility] [place] [address], [place] Triglyceride [Mass/Vol]154 mg/oQJjcp02-277Eaw [facility] HospitalComment on above:Order Comment: No: Do not add to previous drawResult Comment: TRIGLYCERIDE REFERENCE RANGE: 20 YEARS AND OLDER CARDIOVASCULAR RISK LESS THAN 150 mg/dl LOW RISK 150 TO 199 mg/dl BORDERLINE RISK 200 mg/dl AND GREATER HIGH RISKPerformed By: #### 74183, 50156 ####[facility] [place] [address], [facility] CARE CENTERVLDL CHOL31 mg/dL Normal0-40The [facility] HospitalComment on above:Order Comment: No: Do not add to previous drawPerformed By: #### 52162, 78735 ####[facility] [facility] [place] [address], [facility] CENTERPOC GLUCOSE LAB on 50-76-5156Orrjeuu [Mass/Vol]159 mg/wESywy46-309Wsb [facility] HospitalComment on above:Performed By: #### 01200, 52697, 24180 #### [facility] [address] [place] [address], USAGlucose [Mass/Vol]109 mg/nJRfkw54-991Vcz [facility] HospitalComment on above:Performed By: #### 52604, 94381, 60950 #### [facility] [address] [facility] [place] [address], USAUFH HEPARIN ASSAYon 80-58-4123SECIGIPILLLOGR HEPARIN<0.10 Critically low0.30-0.70The [facility] HospitalComment on above: Result Comment: Rivaroxaban and Apixaban will interfere with the anti Xa assay used to monitor UFH and LMWH. RESULTS CHECKED AND CALLED. ACCURATELY READ BACK BY Olga Saucedo RN at 0740Performed By: #### 27730 ####[facility] [place] [address], USAALDOSTERONE 59401pv 58-97-1985EVEZZIVXIIQ8.2 ng/dLNoHarrison Community HospitalComment on above:Order Comment: No: Do not add to previous drawResult Comment: INTERPRETIVE INFORMATION: Aldosterone, Serum Reference intervals for age [...] reference intervals for this test in the [facility] Test Directory ([employer]). Performed By: [employer] [address] [place] [address] [employer] Teacher: Adriana Cordoba MDST. VINCENT[facility] METABOLIC PANELon 09-16-2020 Calcium [Mass/Vol]9.1 mg/dLNormal8.6-10.3The [facility] Comment on above:Order Comment: No: Do not add to previous drawPerformed By: #### 98396, 39490, 42716 #### [facility] [address] [place] [address], USAChloride [Moles/Vol]105 mmol/PTvehlr87-452Nrh [facility] HospitalComment on above:Order Comment: No: Do not add to previous drawPerformed By: #### 09559, 20126, 27996 #### [facility] [address] [place] [address], USACO2 [Moles/Vol]28 mmol/CKrmntu91-60Zcn [facility] HospitalComment on above:Order Comment: No: Do not add to previous draw Performed By: #### 91232, 07732, 86223 #### [facility] [address] [place] [address], USACreatinine [Mass/Vol]0.79 mg/dLNormal0.60-1.20The [facility] HospitalComment on above:Order Comment: No: Do not add to previous drawPerformed By: #### 82861, 09713, 72907 #### [facility] [address] [place] [address], USAGFR/1.73 sq M.predicted among blacks MDRD (S/P/Bld) [Vol rate/Area]mL/min/{1.73_m2}Normal>60The [facility] Comment on above:Order Comment: No: Do not add to previous drawPerformed By: #### 02465, 21023, 89236 #### [facility] [address] [place] [address], USAGFR/1.73 sq M.predicted among non-blacks MDRD (S/P/Bld) [Vol rate/Area]mL/min/{1.73_m2}Normal>60The [facility] Comment on above:Order Comment: No: Do not add to previous drawPerformed By: #### 84809, 83886, 99929 #### [facility] [address] [place] [address], USAGlucose [Mass/Vol]109 mg/mEUstv71-001Dof [facility] HospitalComment on above:Order Comment: No: Do not add to previous drawPerformed By: #### 52420, 90719, 12076 #### [facility] [address] [place] [address], USAPotassium [Moles/Vol]3.7 mmol/LNormal3.5-5.1The [facility] HospitalComment on above:Order Comment: No: Do not add to previous drawPerformed By: #### 59200, 69063, 39347 #### [facility] [address] [place] [address], USASodium [Moles/Vol]140 mmol/OOadkrh253-066Ocs [facility] HospitalComment on above:Order Comment: No: Do not add to previous drawPerformed By: #### 53121, 88483, 64881 #### [facility] [address] [place] [address], USAUrea nitrogen [Mass/Vol]12 mg/dLNormal7-25The [facility] HospitalComment on above:Order Comment: No: Do not add to previous drawPerformed By: #### 82395, 40209, 07671 #### [facility] [address] [place] [address], USACALCIUM IONIZED CBGLon [id number] CALCIUM1.16 mmol/L Normal1.12-1.30The [facility] HospitalComment on above:Performed By: #### 97541, 43095, 66116 #### [facility] [address] [facility] [place] [place] [address], USACBC W/DIFFon 47-72-1902UIO IMM GRANS0.0 10*3/uLNormal 0.0-0.2The [facility] HospitalComment on above:Order Comment: No: Do not add to previous drawPerformed By: #### 92019, 31930, 28954 #### [facility] [address] [facility] [place] [place] [address], USAABS NEUTROPHILS4.4 10*3/uLNormal1.6-7.6The [facility] HospitalComment on above:Order Comment: No: Do not add to previous drawPerformed By: #### 21351, 74040, 45199 #### [facility] [address] [place] [address], USABasophils (Bld) [#/Vol]0.0 10*3/uLNormal0.0-0.2The [facility] HospitalComment on above:Order Comment: No: Do not add to previous drawPerformed By: #### 29902, 06620, 52090 #### [facility] [address] [place] [address], USABasophils/100 WBC (Bld)0.3 %Normal0.0-1.0The [facility] HospitalComment on above:Order Comment: No: Do not add to previous drawPerformed By: #### 72463, 17999, 94392 #### [facility] [address] [facility] [place] [address], USAEosinophils (Bld) [#/Vol]0.2 10*3/uLNormal0.0-0.5The [facility] HospitalComment on above:Order Comment: No: Do not add to previous drawPerformed By: #### 10965, 65608, 32111 #### [facility] [address] [facility] [place] [address], USAEosinophils/100 WBC (Bld)2.3 %Normal0.0-6.0The [facility] HospitalComment on above:Order Comment: No: Do not add to previous drawPerformed By: #### 79011, 94298, 49831 #### [facility] [address] [facility] [place] [address], USAErythrocyte distribution width (RBC) [Ratio]13.2 %Normal 11.5-15.0The [facility] HospitalComment on above:Order Comment: No: Do not add to previous drawPerformed By: #### 74852, 09820, 10965 #### [facility] [address] [facility] [place] [address], USAHematocrit (Bld) [Volume fraction]39.4 %Jtgrjk25.0-45.0The [facility] HospitalComment on above:Order Comment: No: Do not add to previous drawPerformed By: #### 40491, 38547, 99286 #### [facility] [address] [place] [address], USAHemoglobin (Bld) [Mass/Vol]12.8 g/rWNdgjwg77.0-15.0The [facility] HospitalComment on above:Order Comment: No: Do not add to previous drawPerformed By: #### 04925, 38691, 91174 #### [facility] [address] [place] [address], USAIMMATURE GRANS0.4 %Normal0.0-1.0The [facility] HospitalComment on above:Order Comment: No: Do not add to previous draw Performed By: #### 49412, 42579, 87720 #### [facility] [address] [place] [address], USALymphocytes (Bld) [#/Vol]1.8 10*3/uLNormal1.2-4.0The [facility] HospitalComment on above:Order Comment: No: Do not add to previous drawPerformed By: #### 42966, 52207, 81014 #### [facility] [address] [place] [address], USALymphocytes/100 WBC (Bld)25.8 %Ynazsm36.0-45.0The [facility] HospitalComment on above:Order Comment: No: Do not add to previous drawPerformed By: #### 83184, 53998, 78020 #### [facility] [address] [place] [address], [facility] CENTERMCH (RBC) [Entitic mass]29.8 toGhwwzs19.0-33.0The [facility] HospitalComment on above:Order Comment: No: Do not add to previous drawPerformed By: #### 59565, 74688, 88307 #### [facility] [address] [place] [address], USAMCHC (RBC) [Mass/Vol]32.5 g/tYMhdgot54.0-35.0The [facility] HospitalComment on above:Order Comment: No: Do not add to previous drawPerformed By: #### 97514, 44433, 95978 #### [facility] [address] [place] [address], USAMCV (RBC) [Entitic vol]91.8 hGDjghij13.0-98.0The [facility] HospitalComment on above:Order Comment: No: Do not add to previous drawPerformed By: #### 26979, 81531, 44130 #### [facility] [address] [place] [address], USAMonocytes (Bld) [#/Vol]0.6 10*3/uLNormal0.1-1.0The [facility] HospitalComment on above:Order Comment: No: Do not add to previous drawPerformed By: #### 96361, 64880, 08599 #### [facility] [address] [place] [address], USAMONOS8.7 %Normal5.0-12.0The [facility] HospitalComment on above:Order Comment: No: Do not add to previous drawPerformed By: #### 34171, 22629, 12834 #### [facility] [address] [place] [address], USANeutrophils/100 WBC (Bld)62.5 %Ctujpb90.0-72.0The [facility] HospitalComment on above:Order Comment: No: Do not add to previous drawPerformed By: #### 58941, 47293, 47335 #### [facility] [address] [place] [address], USANucleated RBC/100 WBC (Bld) [Ratio]0 %Normal0-0The [facility] HospitalComment on above:Order Comment: No: Do not add to previous drawPerformed By: #### 60847, 47786, 65195 #### [facility] [address] [place] [address], USAPLAT TUT751 10*3/mZXscgvp348-252Fwl [facility] HospitalComment on above:Order Comment: No: Do not add to previous draw Performed By: #### 58724, 40358, 36242 #### [facility] [address] [place] [address], USARBC (Bld) [#/Vol]4.29 10*6/uLNormal3.80-5.00The [facility] HospitalComment on above:Order Comment: No: Do not add to previous drawPerformed By: #### 06215, 55359, 82351 #### [facility] [address] [place] [address], USAWBC (Bld) [#/Vol]7.01 10*3/uLNormal4.00-10.60The [facility] HospitalComment on above:Order Comment: No: Do not add to previous drawPerformed By: #### 27782, 11289, 77508 #### [facility] [address] [place] [address], USACardiovascular Lab Reporton [id number] Lab ReportUnHolzer Health System Patient Name: Aurelio [facility] Silvia Neumann MR #: [id number] Department of Physician: Omar Atkinson M.D. Division of Service Date: 09/16/2020 Cardiology Birthdate: 1970 Adult Cardiovascular Room #: 3AB 858543 [facility] [address] [place], [place] [address] Cardiovascular Laboratory Report FINAL IMPRESSIONS: 1. Moderate [...] the left radial artery was obtained. A 6-Tristanian glide sheath was inserted without difficulty. Bilateral [...] 50% stenosis adjacent to a prominent septal pipe recovery specialist. It is a wrap-around left anterior descending. [...] Jimmy/Esa Vizcarra M.D. Date Trans: 09/16/2020 10:43 A/mmo DN_JN:[id number] cc: Dariusz Keen M.D. [address] [place] [address] A [facility] [address]UyvezgCyxDetwiler Memorial Hospital METANEPHRINES, PLASMA 61773oa [id number] METANEPH PLSee NoteDetwiler Memorial HospitalComment on above:Order Comment: No: Do not add to previous drawResult Comment: INTERPRETIVE INFORMATION: Metanephrines, Plasma (Free) This test is [...] developed and its performance characteristics determined by [employer]. It has not been cleared or approved by the [place] Food and Drug Administration. This test was performed in a CLIA certified laboratory and is intended for clinical purposes. Performed By: [employer] [address] [place] [address] [employer]iatric A[employer] Teacher: Adriana Cordoba, MDMETANEPHRINE PLASMA0.13 nmol/LNormal 0.00-0.49The [facility] HospitalComment on above:Order Comment: No: Do not add to previous drawNORMETANEPHRINE PLASMA0.37 nmol/LNormal0.00-0.89 The [facility] HospitalComment on above:Order Comment: No: Do not add to previous drawPOC GLUCOSE LABon [id number] [Mass/Vol]125 mg/dL Thbn97-015Lgu [facility] HospitalComment on above:Performed By: #### 15863, 49436, 04559 #### [facility] [address] [place] [address], USAGlucose [Mass/Vol]147 mg/wVMzbf96-311Uih [facility] HospitalComment on above:Performed By: #### 95391, 78457, 99333 #### [facility] [address] [place] [address], USAGlucose [Mass/Vol]100 mg/yJSovwfr51-390Inb [facility] HospitalComment on above:Performed By: #### 32901, 95836, 46000 #### [facility] [address] [place] [address], USAGlucose [Mass/Vol]122 mg/yHRxnz41-596Qmu [facility] HospitalComment on above:Performed By: #### 40973, 32562, 37517 #### [facility] [address] [place] [address], USAPTH INTACTon [id number] ARSFMZ34 pg/wSBbcuae67-74Xce [facility] HospitalComment on above:Order Comment: No: Do not add to previous drawPerformed By: #### 67150, 22908, 30582 #### [facility] [address] [place] [address], USARENIN ACTIVITY 99462ra 92-50-9913PBTFB ACTIVITY0.7 ng/mL/hr NormalThe [facility] HospitalComment on above:Order Comment: No: Do not add to previous drawResult Comment: INTERPRETIVE INFORMATION: Renin Activity Adult, Normal sodium diet: [...] developed and its performance characteristics determined by [employer]. It has not been cleared or approved by the [place] Food and Drug Administration. This test was performed in a CLIA certified laboratory and is intended for clinical purposes. Performed By: [employer] [address] [place] [address] Psychiatric A[employer] Teacher: Adriana Cordoba MDTSH3 WITH REFLEX FT4on [id number] 3RD GENERATION2.75 uIU/mLNormal0.34-5.60The [facility] Comment on above:Order Comment: No: Do not add to previous drawPerformed By: #### 91070, 55187, 87141 #### [facility] [address] [facility] [place] [address], [facility] CARE CENTERUF HEPARIN ASSAYon [id number] HEPARIN0.34 IU/mLNormal0.30-0.70The [facility] HospitalComment on above: Result Comment: Rivaroxaban and Apixaban will interfere with the anti Xa assay used to monitor UFH and LMWH.Performed By: #### 73776 ####[facility] [facility].[address]*SARS-CoV-2 COVID-19on 09-15-2020 SARS-CoV-2 (COVID-19) RNA RAJINDER+probe Ql (Unsp spec)Not detectedNormalNot Detected The [facility] HospitalComment on above:Order Comment: The Aptima SARS-CoV-2 assay is a nucleic acid amplification test intended for the qualitative detection of RNA from SARS-CoV-2 isolated and purified from nasopharyngeal ([place]),oropharyngeal (OP), nasal swab, sputum, and bronchoalveolar lavage (BAL) specimens from patients with signs and symptoms of infection who are suspected of COVID-19. Results are for the identification of SARS-CoV-2 RNA. The SARS-CoV-2 RNA is generally detectable during the acute phase of infection. The Aptima SARS-CoV-2 Assay on the [employer] system is intended for use by laboratory personnel specifically instructed and trained in the operation of the [employer] and [employer] Fusion system. The Aptima SARS-CoV-2 assay is [...] with clinical observations, patient history, and epidemiological information.Performed By: #### 25032 #### [facility] [address] [place] [address], USABASIC METABOLIC PANELon [id number] [Mass/Vol]9.1 mg/dLNormal8.6-10.3The [facility] HospitalComment on above:Order Comment: No: Do not add to previous drawPerformed By: #### 67206, 52784 ####[facility] [place] [address], [place] Chloride [Moles/Vol]106 mmol/TLskhcl46-841Esc [facility] HospitalComment on above:Order Comment: No: Do not add to previous drawPerformed By: #### 31856, 20018 ####[facility] [facility] [place] [place] [address], USACO2 [Moles/Vol]26 mmol/FFstjnp14-63Lff [facility] HospitalComment on above:Order Comment: No: Do not add to previous drawPerformed By: #### 09760, 29861 ####[facility] [facility] [place] [place] [address], USACreatinine [Mass/Vol]0.76 mg/dLNormal 0.60-1.20The [facility] HospitalComment on above:Order Comment: No: Do not add to previous drawPerformed By: #### 40425, 06959 ####[facility] [facility] [place] [place] [address], USAGFR/1.73 sq M.predicted among blacks MDRD (S/P/Bld) [Vol rate/Area]mL/min/{1.73_m2}Normal>60 The [facility] HospitalComment on above:Order Comment: No: Do not add to previous drawPerformed By: #### 73513, 26148 ####[facility] [place] [address], USAGFR/1.73 sq M.predicted among non-blacks MDRD (S/P/Bld) [Vol rate/Area]mL/min/{1.73_m2}Normal>60The [facility] HospitalComment on above:Order Comment: No: Do not add to previous drawPerformed By: #### 16507, 45640 ####[facility] [place] [address], USAGlucose [Mass/Vol]114 mg/lXDdub07-918Uub [facility] HospitalComment on above:Order Comment: No: Do not add to previous drawPerformed By: #### 32609, 06398 ####[facility] [facility] [place] [place] [address], [place] Potassium [Moles/Vol]3.8 mmol/LNormal3.5-5.1The [facility] HospitalComment on above:Order Comment: No: Do not add to previous drawPerformed By: #### 04508, 98826 ####[facility] [facility] [place] [place] [address], USASodium [Moles/Vol]140 mmol/LPfwhij217-357Acm [facility] HospitalComment on above:Order Comment: No: Do not add to previous drawPerformed By: #### 39595, 37242 ####[facility] [facility] [place] [place] [address], USAUrea nitrogen [Mass/Vol]11 mg/dL Normal7-25The [facility] HospitalComment on above:Order Comment: No: Do not add to previous drawPerformed By: #### 28300, 79809 ####[facility] [facility] [place] [address], USACBC W/DIFFon 66-25-4138FAG IMM GRANS0.0 10*3/uLNormal0.0-0.2The [facility] HospitalComment on above:Order Comment: No: Do not add to previous drawPerformed By: #### 97492, 51924, 04818 #### [facility] [address] [facility] [place] [address], USAABS NEUTROPHILS4.5 10*3/uLNormal1.6-7.6The [facility] HospitalComment on above:Order Comment: No: Do not add to previous drawPerformed By: #### 77457, 56990, 60876 #### [facility] [address] [place] [address], USABasophils (Bld) [#/Vol]0.0 10*3/uLNormal0.0-0.2The [facility] HospitalComment on above:Order Comment: No: Do not add to previous drawPerformed By: #### 71758, 44787, 09487 #### [facility] [address] [facility] [place] [address], USABasophils/100 WBC (Bld)0.4 %Normal0.0-1.0The [facility] HospitalComment on above:Order Comment: No: Do not add to previous drawPerformed By: #### 06429, 11350, 68471 #### [facility] [address] [facility] [place] [address], USAEosinophils (Bld) [#/Vol]0.1 10*3/uLNormal0.0-0.5The [facility] HospitalComment on above:Order Comment: No: Do not add to previous drawPerformed By: #### 49645, 52303, 72525 #### [facility] [address] [facility] [place] [address], USAEosinophils/100 WBC (Bld)1.8 %Normal0.0-6.0The [facility] HospitalComment on above:Order Comment: No: Do not add to previous drawPerformed By: #### 80622, 89978, 71222 #### [facility] [address] [facility] [place] [address], USAErythrocyte distribution width (RBC) [Ratio]13.3 %Normal 11.5-15.0The [facility] HospitalComment on above:Order Comment: No: Do not add to previous drawPerformed By: #### 43470, 16623, 06552 #### [facility] [address] [place] [address], USAHematocrit (Bld) [Volume fraction]42.1 %Skvqfx24.0-45.0The [facility] HospitalComment on above:Order Comment: No: Do not add to previous drawPerformed By: #### 71177, 08634, 85339 #### [facility] [address] [place] [address], USAHemoglobin (Bld) [Mass/Vol]13.8 g/iZQtzfut52.0-15.0The [facility] HospitalComment on above:Order Comment: No: Do not add to previous drawPerformed By: #### 22210, 05758, 73357 #### [facility] [address] [place] [address], USAIMMATURE GRANS0.4 %Normal0.0-1.0The [facility] HospitalComment on above:Order Comment: No: Do not add to previous draw Performed By: #### 53841, 91479, 27097 #### [facility] [address] [place] [address], USALymphocytes (Bld) [#/Vol]1.5 10*3/uLNormal1.2-4.0The [facility] HospitalComment on above:Order Comment: No: Do not add to previous drawPerformed By: #### 79764, 39680, 68645 #### [facility] [address] [place] [address], USALymphocytes/100 WBC (Bld)21.5 %Zuiuzx66.0-45.0The [facility] HospitalComment on above:Order Comment: No: Do not add to previous drawPerformed By: #### 26093, 03249, 78786 #### [facility] [address] [place] [address], [facility] ([facility]BC) [Entitic mass]29.8 plZvcqdu39.0-33.0The [facility] HospitalComment on above:Order Comment: No: Do not add to previous drawPerformed By: #### 97758, 64936, 34424 #### [facility] [address] [place] [address], [facility] (RBC) [Mass/Vol]32.8 g/qFLhczaw92.0-35.0The [facility] HospitalComment on above:Order Comment: No: Do not add to previous drawPerformed By: #### 86207, 53200, 24354 #### [facility] [address] [place] [address], [facility] (RBC) [Entitic vol]90.9 bSGcsrfv29.0-98.0The [facility] HospitalComment on above:Order Comment: No: Do not add to previous drawPerformed By: #### 15970, 82138, 54490 #### [facility] [address] [facility] [place] [address], USAMonocytes (Bld) [#/Vol]0.7 10*3/uLNormal0.1-1.0The [facility] HospitalComment on above:Order Comment: No: Do not add to previous drawPerformed By: #### 86038, 64902, 06812 #### [facility] [address] [place] [address], USAMONOS9.6 %Normal5.0-12.0The [facility] HospitalComment on above:Order Comment: No: Do not add to previous drawPerformed By: #### 89502, 10418, 22257 #### [facility] [address] [place] [address], USANeutrophils/100 WBC (Bld)66.3 %Rysrxf75.0-72.0The [facility] HospitalComment on above:Order Comment: No: Do not add to previous drawPerformed By: #### 25673, 77352, 69328 #### [facility] [address] [place] [address], USANucleated RBC/100 WBC (Bld) [Ratio]0 %Normal0-0The [facility] HospitalComment on above:Order Comment: No: Do not add to previous drawPerformed By: #### 43739, 35356, 09519 #### [facility] [address] [place] [address], USAPLAT [id number] 10*3/vXUucxui949-653Cwh [facility] HospitalComment on above:Order Comment: No: Do not add to previous draw Performed By: #### 48637, 27148, 09141 #### [facility] [address] [place] [address], USARBC (Bld) [#/Vol]4.63 10*6/uLNormal3.80-5.00The [facility] HospitalComment on above:Order Comment: No: Do not add to previous drawPerformed By: #### 55019, 16457, 24047 #### [facility] [address] [place] [address], USAWBC (Bld) [#/Vol]6.85 10*3/uLNormal4.00-10.60The [facility] HospitalComment on above:Order Comment: No: Do not add to previous drawPerformed By: #### 69443, 52259, 15602 #### [facility] [address] [place] [address], USAPOC GLUCOSE LABon 82-97-6658Fgjohlh [Mass/Vol]122 mg/dLHigh 70-100The [facility] HospitalComment on above:Performed By: #### 79267, 16438, 97256 #### [facility] [address] [place] [address], USAGlucose [Mass/Vol]175 mg/oYUywt77-768Xzd [facility] HospitalComment on above:Performed By: #### 86729, 00151, 29348 #### [facility] [address] [facility] [address], USATROPONIN-Ion 42-29-0706Ubdnrjrn I.cardiac [Mass/Vol]0.12 ng/mLCritically high0.00-0.04The [facility] HospitalComment on above:Order Comment: No: Do not add to previous drawResult Comment: M-PREVIOUS CRITICAL RESULT REFERENCE RANGES: 0.00 - 0.04 ng/ml NORMAL 0.05 - 0.50 ng/ml INDETERMINATE > 0.50 ng/ml CONSISTENT WITH AN M.I.Performed By: #### 42599, 18528 ####[facility] [facility] [address], [place] UFH HEPARIN ASSAYon 41-51-3996XSUQEJYVBVOGMH HEPARIN0.37 IU/mLNormal0.30-0.70The [facility] HospitalComment on above:Result Comment: Rivaroxaban and Apixaban will interfere with the anti Xa assay used to monitor UFH and LMWH.Performed By: #### 45740 ####[facility] [facility] [address], USABASIC METABOLIC PANELon 09-14-2020 Calcium [Mass/Vol]9.1 mg/dLNormal8.6-10.3The [facility] Comment on above:Order Comment: No: Do not add to previous drawPerformed By: #### 79300, 07645, 75887, 82573 ####[facility] [facility] [place] [address], USAChloride [Moles/Vol]104 mmol/DMoemnx70-041Bmc [facility] HospitalComment on above:Order Comment: No: Do not add to previous drawPerformed By: #### 74662, 55034, 44468, 25134 ####[facility] [place] [address], USACO2 [Moles/Vol] 29 mmol/SWjsseb32-21Blf [facility] HospitalComment on above: Order Comment: No: Do not add to previous drawPerformed By: #### 67618, 41998, 89617, 04558 ####[facility] [place] [address], USACreatinine [Mass/Vol]0.83 mg/dLNormal0.60-1.20The [facility] HospitalComment on above:Order Comment: No: Do not add to previous drawPerformed By: #### 20420, 70241, 19429, 70132 ####[place] [address] [facility] [place] [address], USAGFR/1.73 sq M.predicted among blacks MDRD (S/P/Bld) [Vol rate/Area]mL/min/{1.73_m2}Normal>60The [facility] HospitalComment on above:Order Comment: No: Do not add to previous drawPerformed By: #### 37345, 41443, 31451, 13045 ####[place] [address] [facility] [place] [address], USAGFR/1.73 sq M.predicted among non-blacks MDRD (S/P/Bld) [Vol rate/Area]mL/min/{1.73_m2} Normal>60The [facility] HospitalComment on above:Order Comment: No: Do not add to previous drawPerformed By: #### 92520, 07249, 22833, 90919 ####[facility] [facility] [place] [address], [place] Glucose [Mass/Vol]107 mg/uNLpcw18-340Bfk [facility] Comment on above:Order Comment: No: Do not add to previous drawPerformed By: #### 06512, 56949, 94120, 52408 ####[facility] [place] [address], USAPotassium [Moles/Vol]3.6 mmol/LNormal3.5-5.1 The [facility] HospitalComment on above:Order Comment: No: Do not add to previous drawPerformed By: #### 80398, 90923, 67352, 40014 ####[facility] [facility] [place] [address], [facility] Sodium [Moles/Vol]138 mmol/AFeptko770-869Nef [facility] Comment on above:Order Comment: No: Do not add to previous drawPerformed By: #### 57711, 20337, 06343, 84157 ####[facility] [facility] [place] [address], [facility] CARE CENTERUrea nitrogen [Mass/Vol]10 mg/dLNormal7-25The [facility] HospitalComment on above:Order Comment: No: Do not add to previous drawPerformed By: #### 85903, 68988, 94830, 78227 ####[facility] [facility] [place] [address], [facility]ARE CENTERCBC W/DIFFon 29-72-0639ZGJ IMM GRANS0.0 10*3/uLNormal0.0-0.2The [facility] HospitalComment on above:Order Comment: No: Do not add to previous drawPerformed By: #### 25065, 48166, 50146 #### [facility] [address] [facility] [place] [place] [address], USAABS NEUTROPHILS3.2 10*3/uLNormal1.6-7.6The [facility] HospitalComment on above:Order Comment: No: Do not add to previous drawPerformed By: #### 75786, 40006, 81933 #### [facility] [address] [facility] [place] [address], [facility] C[facility] CENTERBasophils (Bld) [#/Vol]0.0 10*3/uLNormal0.0-0.2The [facility] HospitalComment on above:Order Comment: No: Do not add to previous drawPerformed By: #### 82808, 09936, 64031 #### [facility] [address] [place] [address], USABasophils/100 WBC (Bld)0.4 %Normal0.0-1.0The [facility] HospitalComment on above:Order Comment: No: Do not add to previous drawPerformed By: #### 03094, 71169, 76363 #### [facility] [address] [place] [address], USAEosinophils (Bld) [#/Vol]0.2 10*3/uLNormal0.0-0.5The [facility] HospitalComment on above:Order Comment: No: Do not add to previous drawPerformed By: #### 36131, 84451, 39137 #### [facility] [address] [place] [address], USAEosinophils/100 WBC (Bld)3.3 %Normal0.0-6.0The [facility] HospitalComment on above:Order Comment: No: Do not add to previous drawPerformed By: #### 70929, 73226, 34459 #### [facility] [address] [facility] [place] [address], USAErythrocyte distribution width (RBC) [Ratio]13.4 %Normal 11.5-15.0The [facility] HospitalComment on above:Order Comment: No: Do not add to previous drawPerformed By: #### 70507, 76767, 28087 #### [facility] [address] [place] [address], USAHematocrit (Bld) [Volume fraction]42.5 %Hmvcnf11.0-45.0The [facility] HospitalComment on above:Order Comment: No: Do not add to previous drawPerformed By: #### 86271, 60633, 20366 #### [facility] [address] [place] [address], USAHemoglobin (Bld) [Mass/Vol]14.0 g/eTLjqyos76.0-15.0The [facility] HospitalComment on above:Order Comment: No: Do not add to previous drawPerformed By: #### 33631, 96880, 55990 #### [facility] [address] [place] [address], USAIMMATURE GRANS0.2 %Normal0.0-1.0The [facility] HospitalComment on above:Order Comment: No: Do not add to previous draw Performed By: #### 51684, 07171, 34115 #### [facility] [address] [place] [address], USALymphocytes (Bld) [#/Vol]1.6 10*3/uLNormal1.2-4.0The [facility] HospitalComment on above:Order Comment: No: Do not add to previous drawPerformed By: #### 64929, 40816, 48872 #### [facility] [address] [place] [address], USALymphocytes/100 WBC (Bld)28.2 %Uobvgz10.0-45.0The [facility] HospitalComment on above:Order Comment: No: Do not add to previous drawPerformed By: #### 62406, 05811, 79212 #### [facility] [address] [place] [address], [facility] C[facility] CENTERMCH (RBC) [Entitic mass]29.9 isXjixbg27.0-33.0The [facility] HospitalComment on above:Order Comment: No: Do not add to previous drawPerformed By: #### 25667, 69208, 41508 #### [facility] [address] [place] [address], [facility] C[facility] CENTERMCHC (RBC) [Mass/Vol]32.9 g/xOIcxyrw82.0-35.0The [facility] HospitalComment on above:Order Comment: No: Do not add to previous drawPerformed By: #### 89486, 85312, 64863 #### [facility] [address] [place] [address], USAMCV (RBC) [Entitic vol]90.6 qTVlooys62.0-98.0The [facility] HospitalComment on above:Order Comment: No: Do not add to previous drawPerformed By: #### 26655, 08353, 11615 #### [facility] [address] [place] [address], USAMonocytes (Bld) [#/Vol]0.7 10*3/uLNormal0.1-1.0The [facility] HospitalComment on above:Order Comment: No: Do not add to previous drawPerformed By: #### 52742, 40714, 05307 #### [facility] [address] [place] [address], FZVFWNKP17.6 %Normal5.0-12.0The [facility] HospitalComment on above:Order Comment: No: Do not add to previous drawPerformed By: #### 13615, 61603, 45775 #### [facility] [address] [place] [address], USANeutrophils/100 WBC (Bld)56.3 %Jrdtqu97.0-72.0The [facility] HospitalComment on above:Order Comment: No: Do not add to previous drawPerformed By: #### 36609, 66003, 14462 #### [facility] [address] [place] [address], USANucleated RBC/100 WBC (Bld) [Ratio]0 %Normal0-0The [facility] HospitalComment on above:Order Comment: No: Do not add to previous drawPerformed By: #### 10542, 41747, 00068 #### [facility] [address] [place] [address], USAPLAT [id number] 10*3/sNExlwzh522-895Idw [facility] HospitalComment on above:Order Comment: No: Do not add to previous draw Performed By: #### 92505, 43701, 58283 #### [facility] [address] [place] [address], USARBC (Bld) [#/Vol]4.69 10*6/uLNormal3.80-5.00The [facility] HospitalComment on above:Order Comment: No: Do not add to previous drawPerformed By: #### 23245, 84213, 25839 #### [facility] [address] [place] [address], USAWBC (Bld) [#/Vol]5.68 10*3/uLNormal4.00-10.60The [facility] HospitalComment on above:Order Comment: No: Do not add to previous drawPerformed By: #### 99710, 13904, 24761 #### [facility] [address] [place] [address], USAMAGNESIUM BLOODon 73-97-4890Rnosvohub [Mass/Vol]2.1 mg/dL Normal1.9-2.7The [facility] HospitalComment on above:Order Comment: No: Do not add to previous drawPerformed By: #### 80374, 60514, 02126, 08286 ####[facility] [facility] [address], USAPHOSPHORUS BLOODon 57-51-4039Fkepcteyw [Mass/Vol]3.6 mg/dLNormal2.5-5.0The [facility] HospitalComment on above:Order Comment: No: Do not add to previous drawPerformed By: #### 71773, 07517, 02852, 32918 ####[facility] [place] [address], [facility] CENTERPOC GLUCOSE LAB on 85-11-4394Vmngpfc [Mass/Vol]134 mg/dKNhmt36-477Vag [facility] HospitalComment on above:Performed By: #### 27753, 55202, 57353 #### [facility] [address] [facility] [place] [address], USAGlucose [Mass/Vol]168 mg/kIKnut84-976Nbz [facility] HospitalComment on above:Performed By: #### 59650, 99613, 11136 #### [facility] [address] [facility] [place] [address], USATROPONIN-Ion 53-23-6672Eodqpzaz I.cardiac [Mass/Vol]0.29 ng/mLCritically high0.00-0.04The [facility] HospitalComment on above:Result Comment: M-PREVIOUS CRITICAL RESULT REFERENCE RANGES: 0.00 - 0.04 ng/ml NORMAL 0.05 - 0.50 ng/ml INDETERMINATE > 0.50 ng/ml CONSISTENT WITH AN M.I.Performed By: #### 27357, 06803, 54879, 78308 ####[facility] [place] [address], USAUFH HEPARIN ASSAYon 54-04-1507DNMNXKOQTPDMBC HEPARIN0.43 IU/mLNormal 0.30-0.70The [facility] HospitalComment on above:Result Comment: Rivaroxaban and Apixaban will interfere with the anti Xa assay used to monitor UFH and LMWH.Performed By: #### 31540, 61327, 29388 #### [facility] [address] [facility] [place] [address], USAUNFRACTIONATED HEPARIN0.66 IU/mLNormal0.30-0.70The [facility] HospitalComment on above:Result Comment: Rivaroxaban and Apixaban will interfere with the anti Xa assay used to monitor UFH and LMWH.Performed By: #### 63712 ####[facility] [facility] [place] [address], USAAPTTon 77-40-4961eYVK Coag (Bld) [Time]30.6 yWzbfsf87.0-35.0The [facility] HospitalComment on above:Result Comment: ALL RESULTS MUST BE INTERPRETED WITH RESPECT TO BLOOD DRAWING ARTIFACT OR DILUTION ERROR OF ANTICOAGULANT AT THE TIME OF SAMPLING. THE APTT SHOULD NOT BE USED TO MONITOR UNFRACTIONATED HEPARIN THERAPY, THIS LABORATORY NO LONGER HAS AN ESTABLISHED THERAPEUTIC RANGE BASED ON THE APTT. IT IS RECOMMENDED THAT THE UFH - HEPARIN ASSAY (ANTI-XA ACTIVITY) BE USED FOR THIS PURPOSE.Performed By: #### 55445, 03675, 52602 ####[facility] [place] [address], [place] BASIC METABOLIC PANELon 63-68-0849Ozlcrmg [Mass/Vol]9.8 mg/dLNormal8.6-10.3The [facility] HospitalComment on above:Order Comment: No: Do not add to previous drawPerformed By: #### 58457, 98817, 96141, 59645 ####[facility] [place] [address], USAChloride [Moles/Vol]104 mmol/ENtczao96-465Uzg [facility] HospitalComment on above:Order Comment: No: Do not add to previous drawPerformed By: #### 52287, 22907, 82152, 46573 ####[facility] [place] [address], USACO2 [Moles/Vol]30 mmol/BFhwwse82-71Wtn [facility] HospitalComment on above:Order Comment: No: Do not add to previous drawPerformed By: #### 80743, 26838, 38604, 43065 ####[facility] [place] [address], USACreatinine [Mass/Vol]0.77 mg/dLNormal0.60-1.20The [facility] HospitalComment on above: Order Comment: No: Do not add to previous drawPerformed By: #### 38763, 70398, 90489, 38016 ####[facility] [place] [address], USAGFR/1.73 sq M.predicted among blacks MDRD (S/P/Bld) [Vol rate/Area] mL/min/{1.73_m2}Normal>60The [facility] HospitalComment on above:Order Comment: No: Do not add to previous drawPerformed By: #### 89030, 78396, 40619, 92983 ####[facility] [place] [address], USAGFR/1.73 sq M.predicted among non-blacks MDRD (S/P/Bld) [Vol rate/Area]mL/min/{1.73_m2}Normal>60The [facility] Comment on above:Order Comment: No: Do not add to previous drawPerformed By: #### 11489, 20725, 08432, 26748 ####[place] [address] [place] [address], USAGlucose [Mass/Vol]85 mg/iZSatycf63-491Fcr [facility] HospitalComment on above:Order Comment: No: Do not add to previous drawPerformed By: #### 78379, 06546, 34791, 15397 ####[facility] [place] [address], USAPotassium [Moles/Vol]4.2 mmol/LNormal3.5-5.1The [facility] HospitalComment on above:Order Comment: No: Do not add to previous drawPerformed By: #### 77142, 53712, 24576, 13081 ####[facility] [place] [address], USASodium [Moles/Vol]141 mmol/KKkkqyl598-944Pxt [facility] HospitalComment on above:Order Comment: No: Do not add to previous drawPerformed By: #### 46143, 96802, 14404, 00550 ####[facility] [facility] [address], USAUrea nitrogen [Mass/Vol]10 mg/dLNormal7-25The [facility] HospitalComment on above:Order Comment: No: Do not add to previous drawPerformed By: #### 24345, 37016, 36462, 57387 ####[facility] [place] [address], USACBC COMPLETE BLOOD COUNTon 48-15-6713Cyfrxphxvxh distribution width (RBC) [Ratio]13.4 %Uxfvwl39.5-15.0The [facility] HospitalComment on above:Order Comment: No: Do not add to previous draw Performed By: #### 74962, 36094, 63372 #### [facility] [address] [place] [address], USAHematocrit (Bld) [Volume fraction]43.0 %Rmlyfp62.0-45.0The [facility] HospitalComment on above:Order Comment: No: Do not add to previous drawPerformed By: #### 03902, 90744, 74885 #### [facility] [address] [place] [address], USAHemoglobin (Bld) [Mass/Vol]14.0 g/kRTrkdzf17.0-15.0The [facility] HospitalComment on above:Order Comment: No: Do not add to previous drawPerformed By: #### 80349, 25449, 81333 #### [facility] [address] [place] [address], [facility] ([facility]) [Entitic mass]29.5 ntQurcrs53.0-33.0The [facility] HospitalComment on above:Order Comment: No: Do not add to previous drawPerformed By: #### 86086, 98900, 77543 #### [facility] [address] [place] [address], [facility]ENTERMCHC (RBC) [Mass/Vol]32.6 g/hETbnbll18.0-35.0The [facility] HospitalComment on above:Order Comment: No: Do not add to previous drawPerformed By: #### 19847, 16534, 43583 #### [facility] [address] [place] [address], USAMCV (RBC) [Entitic vol]90.7 oXAfjafe61.0-98.0The [facility] HospitalComment on above:Order Comment: No: Do not add to previous drawPerformed By: #### 54534, 09741, 12987 #### [facility] [address] [place] [address], USANucleated RBC/100 WBC (Bld) [Ratio]0 %Normal0-0The [facility] HospitalComment on above:Order Comment: No: Do not add to previous drawPerformed By: #### 78715, 78906, 78164 #### [facility] [address] [place] [address], USAPLAT MJI580 10*3/dSLafhcs451-124Wkl [facility] HospitalComment on above:Order Comment: No: Do not add to previous draw Performed By: #### 18885, 92356, 36574 #### [facility] [address] [place] [address], USARBC (Bld) [#/Vol]4.74 10*6/uLNormal3.80-5.00The [facility] HospitalComment on above:Order Comment: No: Do not add to previous drawPerformed By: #### 63322, 18397, 98005 #### [facility] [address] [place] [address], USAWBC (Bld) [#/Vol]5.39 10*3/uLNormal4.00-10.60The [facility] HospitalComment on above:Order Comment: No: Do not add to previous drawPerformed By: #### 57279, 96973, 88635 #### [facility] [address] [place] [address], USAMAGNESIUM BLOODon 07-76-2601Nnrfrqbzr [Mass/Vol]2.1 mg/dL Normal1.9-2.7The [facility] HospitalComment on above:Order Comment: No: Do not add to previous drawPerformed By: #### 14214, 79480, 92747, 91073 ####[facility] [place] [address], USAPHOSPHORUS BLOODon 10-78-3477Sjraaldpt [Mass/Vol]4.0 mg/dLNormal2.5-5.0The [facility] HospitalComment on above:Order Comment: No: Do not add to previous drawPerformed By: #### 22548, 76610, 84965, 91346 ####[facility] [facility] [place] [address], USAPROTHROMBIN TIME on 89-20-5164NYQ Coag (PPP) [Relative time]0.92 {INR}Normal0.91-1.16The [facility] HospitalComment on above:Result Comment: ACCCP RECOMMENDED INR FOR WARFARIN THERAPY ------- CONDITION INR PROPHYLAXIS OF VENOUS THROMBOSIS 2-3 (HIGH-RISK SURGERY) TREATMENT OF VENOUS THROMBOSIS 2-3 TREATMENT OF PULMONARY EMBOLISM 2-3 PREVENTION OF SYSTEMIC EMBOLISM: 2-3 ACUTE MYOCARDIAL INFARCTION TISSUE HEART VALVES VALVULAR HEART DISEASE ATRIAL FIBRILLATION RECURRENT SYSTEMIC EMBOLISM MECHANICAL HEART VALVE 2.5-3.5 FROM: ORAL ANTICOAGULANTS. MECHANISM OF ACTION, CLINICAL EFFECTIVENESS, AND OPTIMAL THERAPEUTIC RANGE. CHEST 1995;108:231S-246S.Performed By: #### 50521, 04404, 80117 ####[facility] [place] [address], USAPT Coag (PPP) [Time]12.4 iXavwly01.3-14.8The [facility] HospitalComment on above:Result Comment: ALL RESULTS MUST BE INTERPRETED WITH RESPECT TO BLOOD DRAWING ARTIFACT OR DILUTION ERROR OF ANTICOAGULANT AT THE TIME OF SAMPLING.Performed By: #### 52578, 19103, 47303 ####[facility] [place] [address], USATROPONIN-Ion 64-56-3894Dynvsuwm I.cardiac [Mass/Vol] 0.37 ng/mLCritically high0.00-0.04The [facility] HospitalComment on above:Order Comment: No: Do not add to previous drawResult Comment: M- TROPONIN INITIAL CRITICAL HIGH; RESPUN AND RETESTED M-CRITICAL RESULT(S) REVIEWED, CALLED TO AND READ BACK BY SHERRIE SPRAGUE RN AT 2254. REFERENCE RANGES: 0.00 - 0.04 ng/ml NORMAL 0.05 - 0.50 ng/ml INDETERMINATE > 0.50 ng/ml CONSISTENT WITH AN M.I.Performed By: #### 86644, 70829, 37006, 39106 ####[facility] [place] [address], USAUFH HEPARIN ASSAYon 58-60-8065VQYQCKAVCFEELX HEPARIN<0.10Critically low 0.30-0.70The [facility] HospitalComment on above:Result Comment: Rivaroxaban and Apixaban will interfere with the anti Xa assay used to monitor UFH and LMWH. RESULTS CHECKED AND CALLED. ACCURATELY READ BACK BY Sherrie Sprague RN at 2228.Performed By: #### 36618, 28027, 68672 ####[facility] [place] [address], USACBC COMPLETE BLOOD COUNTon 37-67-0942Vlaazeyjzaa distribution width (RBC) [Ratio]13.5 %Normal 11.5-15.0The [facility] HospitalComment on above:Order Comment: No: Do not add to previous drawPerformed By: #### 53695, 55763, 79512 #### [facility] [address] [place] [address], USAHematocrit (Bld) [Volume fraction]36.2 %Jibqrj51.0-45.0The [facility] HospitalComment on above:Order Comment: No: Do not add to previous drawPerformed By: #### 29838, 43993, 29603 #### [facility] [address] [place] [address], USAHemoglobin (Bld) [Mass/Vol]12.1 g/dFUjjuwx16.0-15.0The [facility] HospitalComment on above:Order Comment: No: Do not add to previous drawPerformed By: #### 19389, 71241, 52032 #### [facility] [address] [place] [address], [facility] (RBC) [Entitic mass]30.0 rfWtapij83.0-33.0The [facility] HospitalComment on above:Order Comment: No: Do not add to previous drawPerformed By: #### 38390, 07425, 08602 #### [facility] [address] [place] [address], [facility] (RBC) [Mass/Vol]33.4 g/gYUpzdqa12.0-35.0The [facility] HospitalComment on above:Order Comment: No: Do not add to previous drawPerformed By: #### 68831, 50331, 53489 #### [facility] [address] [facility] [place] [address], [facility] (RBC) [Entitic vol]89.6 jNGmknrg94.0-98.0The [facility] HospitalComment on above:Order Comment: No: Do not add to previous drawPerformed By: #### 28286, 77417, 30730 #### [facility] [address] [place] [address], USANucleated RBC/100 WBC (Bld) [Ratio]0 %Normal0-0The [facility] HospitalComment on above:Order Comment: No: Do not add to previous drawPerformed By: #### 28952, 08540, 00347 #### [facility] [address] [place] [address], USAPLAT SYZ467 10*3/lXKkppmz188-411Ear [facility] HospitalComment on above:Order Comment: No: Do not add to previous draw Performed By: #### 30468, 67350, 38609 #### [facility] [address] [place] [address], USARBC (Bld) [#/Vol]4.04 10*6/uLNormal3.80-5.00The [facility] HospitalComment on above:Order Comment: No: Do not add to previous drawPerformed By: #### 82251, 97150, 63524 #### [facility] [address] [place] [address], USAWBC (Bld) [#/Vol]6.91 10*3/uLNormal4.00-10.60The [facility] HospitalComment on above:Order Comment: No: Do not add to previous drawPerformed By: #### 31097, 17418, 67867 #### [facility] [address] [place] [address], USACOMP METABOLIC PANELon 07-56-6234Jxlcaql [Mass/Vol]3.4 g/dL Low3.5-5.7The [facility] HospitalComment on above:Order Comment: No: Do not add to previous drawPerformed By: #### 29572 #### [facility] [address] [place] [address], USAALKALINE ZUDSDU96 IU/RHmgqbu85-891Hvr [facility] HospitalComment on above:Order Comment: No: Do not add to previous draw Performed By: #### 27146 #### [facility] [address] [place] [address], USAALT [Catalytic activity/Vol]12 U/LNormal7-52The [facility] HospitalComment on above:Order Comment: No: Do not add to previous drawPerformed By: #### 41910 #### [facility] [address] [place] [address], USAAST [Catalytic activity/Vol]16 U/DEzrwds46-15Hsg [facility] HospitalComment on above:Order Comment: No: Do not add to previous drawPerformed By: #### 66675 #### [facility] [address] [place] [address], USABilirubin [Mass/Vol]0.3 mg/dLNormal0.3-1.0The [facility] HospitalComment on above:Order Comment: No: Do not add to previous drawPerformed By: #### 44563 #### [facility] [address] [place] [address], USACalcium [Mass/Vol]8.6 mg/dLNormal8.6-10.3The [facility] HospitalComment on above:Order Comment: No: Do not add to previous drawPerformed By: #### 36046 #### [facility] [address] [place] [address], USAChloride [Moles/Vol]107 mmol/WMoekgj78-062Cuc [facility] HospitalComment on above:Order Comment: No: Do not add to previous drawPerformed By: #### 45714 #### [facility] [address] [place] [address], USACO2 [Moles/Vol]25 mmol/VWrrjzh98-99Xpr [facility] HospitalComment on above:Order Comment: No: Do not add to previous draw Performed By: #### 53758 #### [facility] [address] [place] [address], USACreatinine [Mass/Vol]0.72 mg/dLNormal0.60-1.20The [facility] HospitalComment on above:Order Comment: No: Do not add to previous drawPerformed By: #### 91848 #### [facility] [address] [place] [address], USAGFR/1.73 sq M.predicted among blacks MDRD (S/P/Bld) [Vol rate/Area]mL/min/{1.73_m2}Normal>60The [facility] Comment on above:Order Comment: No: Do not add to previous drawPerformed By: #### 09833 #### [facility] [address] [place] [address], USAGFR/1.73 sq M.predicted among non-blacks MDRD (S/P/Bld) [Vol rate/Area]mL/min/{1.73_m2}Normal>60The [facility] Comment on above:Order Comment: No: Do not add to previous drawPerformed By: #### 58256 #### [facility] [address] [place] [address], USAGlucose [Mass/Vol]117 mg/bJWbjn59-783Pzf [facility] HospitalComment on above:Order Comment: No: Do not add to previous drawPerformed By: #### 48874 #### [facility] [address] [place] [address], USAPotassium [Moles/Vol]3.5 mmol/LNormal3.5-5.1The [facility] HospitalComment on above:Order Comment: No: Do not add to previous drawPerformed By: #### 78560 #### [facility] [address] [place] [address], USAProtein [Mass/Vol]5.9 g/dLLow6.0-8.3The [facility] HospitalComment on above:Order Comment: No: Do not add to previous drawPerformed By: #### 80042 #### [facility] [address] [place] [address], USASodium [Moles/Vol]138 mmol/JMytxdi448-914Mnn [facility] HospitalComment on above:Order Comment: No: Do not add to previous drawPerformed By: #### 74300 #### [facility] [address] [place] [address], USAUrea nitrogen [Mass/Vol]14 mg/dLNormal7-25The [facility] HospitalComment on above:Order Comment: No: Do not add to previous drawPerformed By: #### 44138 #### [facility] [address] [place] [address], USABASIC METABOLIC PANELon 23-25-1302Oimiyvx [Mass/Vol]9.6 mg/dLNormal8.6-10.3The [facility] HospitalComment on above: Performed By: #### 90748, 26036, 86008 #### [facility] [address] [place] [address], USAChloride [Moles/Vol]103 mmol/YKlrarn13-894Uwg [facility] HospitalComment on above:Performed By: #### 22775, 13408, 21074 #### [facility] [address] [place] [address], USACO2 [Moles/Vol]28 mmol/KEjguuf47-55Kof [facility] HospitalComment on above:Performed By: #### 60949, 01952, 36404 #### [facility] [address] [place] [address], USACreatinine [Mass/Vol]0.77 mg/dLNormal0.60-1.20The [facility] HospitalComment on above:Performed By: #### 04734, 98046, 76904 #### [facility] [address] [place] [address], USAGFR/1.73 sq M.predicted among blacks MDRD (S/P/Bld) [Vol rate/Area]mL/min/{1.73_m2}Normal>60The [facility] Comment on above:Performed By: #### 13163, 76388, 62353 #### [facility] [address] [place] [address], USAGFR/1.73 sq M.predicted among non-blacks MDRD (S/P/Bld) [Vol rate/Area]mL/min/{1.73_m2}Normal>60The [facility] Comment on above:Performed By: #### 48920, 01437, 92745 #### [facility] [address] [place] [address], USAGlucose [Mass/Vol]116 mg/hLXgst80-941Xig [facility] HospitalComment on above:Performed By: #### 28178, 17458, 53532 #### [facility] [address] [place] [address], USAPotassium [Moles/Vol]3.7 mmol/LNormal3.5-5.1The [facility] HospitalComment on above:Performed By: #### 43717, 08067, 82291 #### [facility] [address] [place] [address], USASodium [Moles/Vol]139 mmol/RBuuuxt008-889Xfz [facility] HospitalComment on above:Performed By: #### 24875, 86476, 31103 #### [facility] [address] [place] [address], USAUrea nitrogen [Mass/Vol]14 mg/dLNormal7-25The [facility] HospitalComment on above:Performed By: #### 14693, 07567, 96181 #### [facility] [address] [place] [address], USACBC COMPLETE BLOOD COUNTon 12-02-9461Kydcqydtgyk distribution width (RBC) [Ratio]13.5 %Hldkuh05.5-15.0The [facility] HospitalComment on above:Performed By: #### 47105 ####[facility] [place] [address], [facility]ARE CENTERHematocrit (Bld) [Volume fraction]42.5 %Kdplwz74.0-45.0The [facility] HospitalComment on above:Performed By: #### [address] ####[place] [address], [facility] CARE CENTERHemoglobin (Bld) [Mass/Vol]13.9 g/dLNormal 12.0-15.0The [facility] HospitalComment on above:Performed By: #### 31374 ####[place] [address], [facility] (RBC) [Entitic mass]29.6 zhYislxl02.0-33.0The [facility] HospitalComment on above:Performed By: #### [address]47[address] ####[place] [address], [facility] CENTERMCHC (RBC) [Mass/Vol]32.7 g/yNDhqhym84.0-35.0The [facility] HospitalComment on above: Performed By: #### 89586 ####[place] [address], [facility] (RBC) [Entitic vol]90.4 jHHtvyja12.0-98.0The [facility] HospitalComment on above:Performed By: #### 92734 ####[address] [place] [address], [facility] Nucleated RBC/100 WBC (Bld) [Ratio]0 %Normal0-0The [facility] HospitalComment on above:Performed By: #### 21452 ####[address] [address], [facility] CARE CENTERPLAT BVN133 10*3/lIRrkudc227-806 The [facility] HospitalComment on above:Performed By: #### 85423 ####[facility] [facility] [place] [address], [facility] RBC (Bld) [#/Vol]4.70 10*6/uLNormal3.80-5.00The [facility] HospitalComment on above:Performed By: #### 06927 ####[facility] [facility] [place] [address], [facility] CENTERWBC (Bld) [#/Vol]9.92 10*3/uL Normal4.00-10.60The [facility] HospitalComment on above: Performed By: #### 48009 ####[facility] [facility] [address], [facility] CENTERCardiovascular Lab Reporton 19-70-5962Hiasznisdqxkim Lab ReportUnHolzer Health System [facility] #: [id number] Department of Physician: Adalid Keyes M.D. Division of Service Date: 11/09/2019 Cardiology Birthdate: 1970 Adult Cardiovascular Room #: [facility] [address] [place], [place] [address] Cardiovascular Laboratory Report INDICATIONS: The patient is [...] signed informed consent. 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 Both groin areas were prepped and draped in usual fashion. Using ultrasound guidance and micropuncture technique, the right and left common femoral veins were accessed and a 6-Tristanian x 11 cm sheath was placed on the right and 11-Tristanian x 11 cm sheath was placed on the left. Heparin was given intravenously and therapeutic ACT confirmed during the rest of the procedure. A AcuNav 10-Tristanian intracardiac echocardiography catheter was advanced through the left femoral venous access and used to perform baseline imaging of the cardiac structures with identification of the interatrial septum and measurement of the rims. A 6-Tristanian multipurpose catheter was advanced over a J-tipped wire and under fluoroscopy and intracardiac echocardiography guidance, the patent foramen ovale was crossed and a wire was advanced to the left superior pulmonary vein. Position was confirmed by pulmonary venous angiography. The catheter was advanced and then used to place an exchange length J-tipped Amplatz Super Stiff wire over which the 9-Tristanian Amplatzer delivery sheath was advanced to the [...] The delivery sheath was exchanged to a 9-Tristanian x 11 cm sheath. The intracardiac echocardiography [...] Keyes M.D. Date Trans: 11/09/2019 11:14 A/mario DN_[id number] cc: Debi Leon D.O. [facility] [address] [address] Dariusz Keen M.D. [address] [place], [place] [address] Vital Signs Date TimeVital SignValuePerforming AerkbmjdnLgvkbgkf71-47-4867 09:02-0400 Diastolic blood seaqojgw09 mm[Hg]Benson Romero MD Work Phone: [facility]10-08-2025 09:02-0400 Heart rate64 /minBenson Romero MD Work Phone: [facility]10-08-2025 09:02-0400 Systolic blood owsqeurj787 mm[Hg]Benson Romero MD Work Phone: [phone]10-08-2025 08:53-0400 Body utmboo143.56 cmBenson Romero MD Work Phone: [facility]10-08-2025 08:53-0400 Body mass index (BMI) [Ratio]35.6 kg/h1OrtqutBenson Romero MD Work Phone: [facility]10-08-2025 08:53-0400 Body gjyfgn98.34 kgBenson Romero MD Work Phone: [facility]02-12-2025 09:14-0500 Body fpadkj552.56 cmCity [facility]02-12-2025 09:14-0500Body mass index (BMI) [Ratio]35 kg/z8UmphawiyiCity Hospital02-12-2025 09:14-0500Body susriq97.53 kgCity [facility]02-12-2025 09:14-0500Diastolic blood alpwjbgj15 mm[Hg][facility] 05-17-2024 09:14-0500Heart rate57 /[facility] 05-17-2024 09:14-0500Systolic blood desuigpd226 mm[Hg][facility]02-08-2025 09:45-0500Diastolic blood qzwnspae38 mm[Hg][facility]02-08-2025 09:45-0500Systolic blood sxjycirc261 mm[Hg][facility]02-08-2025 09:04-0500Body avmbvh137.56 cmCity [facility]02-08-2025 09:04-0500Body mass index (BMI) [Ratio]35.2 kg/a7MjjubwwljCity Hospital02-08-2025 09:04-0500Body uegglubvnoc19 [degF][facility]02-08-2025 09:04-0500Body jzwnyu42.15 kg [facility]02-08-2025 09:04-0500Heart rate74 /[facility]02-08-2025 09:04-0500Respiratory rate16 /[facility]02-08-2025 09:04-6658ZpZ8% (BldA) [Mass fraction]98 % [facility]11-26-2024 08:39-0500Body epdwzd287.56 cm [facility]11-26-2024 08:39-0500Body mass index (BMI) [Ratio]36.3 kg/s5GfrpgyflrCity Hospital11-26-2024 08:39-0500Body .16 kgCity [facility]11-26-2024 08:39-0500Diastolic blood eitwbatr05 mm[Hg][facility]11-26-2024 08:39-0500 Heart rate60 /[facility]11-26-2024 08:39-0500Systolic blood qeckecqs791 mm[Hg][facility]09-24-2024 12:46-0400 Body zdndat643.56 cmCity Hospital09-24-2024 12:46-0400Body mass index (BMI) [Ratio]35.9 kg/t7VhzomhxplCity Hospital09-24-2024 12:46-0400Body lmsafplvjka90.3 [degF][facility]09-24-2024 12:46-0400Body hnydik13.8 kgCity Hospital09-24-2024 12:46-0400Diastolic blood obipndnv846 mm[Hg][facility] 12-28-2023 12:46-0400Heart rate82 /[facility] 12-28-2023 12:46-0400Respiratory rate16 /[facility] 12-28-2023 12:46-4890UxH9% (BldA) [Mass fraction]98 %[facility]09-24-2024 12:46-0400Systolic blood ezafiqsc805 mm[Hg][facility]07-08-2024 13:18-0400Diastolic blood hiikiuqz038 mm[Hg]Michelet Velázquez [facility]07-08-2024 13:18-0400Heart rate64 /minThomas Melania [facility]07-08-2024 13:18-0400 Respiratory rate18 /minThomas Melania [facility]07-08-2024 13:18-6398YzY9% (BldA) [Mass fraction]96 %Michelet Velázquez [facility]07-08-2024 13:18-0400 Systolic blood yagbdlmv985 mm[Hg]Michelet Velázquez [facility]07-08-2024 09:52-0400Body wonybd217.56 cmCity [facility]07-08-2024 09:52-0400Body mass index (BMI) [Ratio]35.5 kg/i4TlffbmlaoCity Hospital07-08-2024 09:52-0400Body xogpat12.89 kgCity Hospital07-08-2024 09:52-0400Diastolic blood fgapziig25 mm[Hg][facility] 10-11-2023 09:52-0400Heart rate57 /minCity Hospital 10-11-2023 09:52-0400Systolic blood lpdkezfd982 mm[Hg][facility]06-11-2024 10:06-0400Body uvdmfy455.56 cmCity Hospital06-11-2024 10:06-0400Body mass index (BMI) [Ratio]36 kg/n4LsvgpptoqCity Hospital06-11-2024 10:06-0400Body .25 kgCity [facility]05-28-2024 08:35-0400Body ibvper729.56 cmCity Hospital05-28-2024 08:35-0400Body mass index (BMI) [Ratio]36 kg/e1AryiookehCity Hospital05-28-2024 08:35-0400Body ybhhjq98.25 kg [facility]05-28-2024 08:35-0400Diastolic blood urhvqroc09 mm[Hg][facility]05-28-2024 08:35-0400Heart rate61 /min [facility]05-28-2024 08:35-0400Systolic blood qhhpeuha135 mm[Hg][facility]12-18-2023 07:14-0500Blood Pressure Shantell Contreras [facility]12-18-2023 07:14-0500 Diastolic blood usiebzst31 mm[Hg]Jairo Contreras [facility]12-18-2023 07:14-0500Heart rate66 /minJairo Contreras [facility]12-18-2023 07:14-0500 Respiratory rate16 /minRyan Ben [address] [place], [place] [address]012-18-2023 07:14-9859EuM1% (BldA) [Mass fraction]98 %Jairo Contreras [address] [place], [place] 1561012-18-2023 07:14-0500 Systolic blood kxuufzgb991 mm[Hg]Jairo Contreras [address]12-15-2023 12:54-0500Blood Pressure LocationRyan Ben [address]12-15-2023 12:54-0500 Diastolic blood saiqepyj064 mm[Hg]Jairo Contreras [address]12-15-2023 12:54-0500Heart rate71 /minTeoan Ben [address] [place], [place] 1561012-15-2023 12:54-4486VsF5% (BldA) [Mass fraction]97 %Jairo Contreras [address] [place], [place] 1561012-15-2023 12:54-0500 Systolic blood chgymqlu930 mm[Hg]Jairo Contreras [address] [place], [place] 1561012-14-2023 13:15-0500Body ukxqez450.56 cmBenson Romero Other [employer] Other 12-14-2023 13:15-0500Body mass index (BMI) [Ratio] 36.21 kg/w4NsgmhvBenson Romero Other [facility] [employer] Other 12-14-2023 13:15-0500Body .71 kgBenson Romero Other [facility] [employer] Other 12-14-2023 13:15-0500Diastolic blood nxndqsyu46 mm[Hg] Benson Romero Other [employer] Other 12-14-2023 13:15-9905IuG5% (BldA) [Mass fraction]97 % Benson Romero Other [employer] Other 12-14-2023 13:15-0500Systolic blood udxogxkw224 mm[Hg] Benson Romero Other [employer] Other 08-29-2023 13:00-0400Body murpuj490.56 cmBenson Romero Other [employer] Other 08-29-2023 13:00-0400Body mass index (BMI) [Ratio] 34.67 kg/d1HijketBenson Romero Other [employer] Other 08-29-2023 13:00-0400Body calfvi95.63 kgBenson Romero Other [employer] Other 08-29-2023 13:00-0400Diastolic blood abwgzufb04 mm[Hg] Benson Romero Other [employer] Other 08-29-2023 13:00-0400Systolic blood abwpwhbm537 mm[Hg] Benson Romero Other [employer] Other 06-22-2023 12:51-0400Diastolic blood bidemhms909 mm[Hg]Jairo Contreras [facility]06-22-2023 12:51-0400Mean blood busomtcv474 mm[Hg]Jairo Contreras [facility]06-22-2023 12:51-0400 Systolic blood zcldywqr572 mm[Hg]Jairo Contreras [address] [place], [place] 1686806-22-2023 12:42-0400Blood Pressure LocationJairo Contreras [address] [place], [place] 1686806-22-2023 12:42-0400 Diastolic blood kwdiursu363 mm[Hg]Jairo Contreras [address] [place], [place] 1686806-22-2023 12:42-0400Heart rate76 /minRyan Ben [address] [place], [place] 1686806-22-2023 12:42-0400 Respiratory rate18 /minRyeri Contreras [address] [place], [place] 1686806-22-2023 12:42-3065IyJ1% (BldA) [Mass fraction]96 %Jairo Contreras [address] [place], [place] 1686806-22-2023 12:42-0400 Systolic blood hpapuqxp275 mm[Hg]Jairo Contreras [address] [place], [place] 1686801-04-2023 09:16-0500Blood Pressure Locationeri Contreras [address] [place], [place] 1686801-04-2023 09:16-0500Body cxvvyogfjtb45.24 [degF]Jairo Ben [address] [place], [place] 1686801-04-2023 09:16-0500 Diastolic blood ielvrtjv030 mm[Hg]Jairo Teaganerson [address] [place], [place] 1686801-04-2023 09:16-0500Heart rate76 /minRyan Teaganerson [address] [place], [place] 1686801-04-2023 09:16-0500 Respiratory rate16 /minRyan Ben [address] [place], [place] 1686801-04-2023 09:16-9207XeL7% (BldA) [Mass fraction]98 %Jairo Ben [address]01-04-2023 09:16-0500 Systolic blood ayhunyrb146 mm[Hg]Jairo Teaganerson [address] [place], [place] 1686812-29-2022 13:48-0500 Diastolic blood mm[Hg]Jairo Víctoroffdao [address] [place], [place] 1686812-29-2022 13:48-0500Mean blood hapivvpp114 mm[Hg]Jairo Ben [address]12-29-2022 13:48-0500 Systolic blood odgnozae400 mm[Hg]Jairo Ben [address] [place], [place] 1686812-29-2022 13:32-0500Blood Pressure LocationRyan Ben [address] [place], [place] 1686812-29-2022 13:32-0500 Diastolic blood mm[Hg]Jairo Ben [address] [place], [place] 1686812-29-2022 13:32-0500Heart rate80 /minRyan Ben [address] [place], [place] 1686812-29-2022 13:32-0500 Respiratory rate18 /minRyan Ben [address] [place], [place] 1561012-29-2022 13:32-9088AkC4% (BldA) [Mass fraction]98 %Jairo Ben [address] [place], [place] 1561012-29-2022 13:32-0500 Systolic blood ghlidpzt155 mm[Hg]Jairo Cnadelariadao [address] [place], [place] 1686812-15-2021 09:13-0500 Diastolic blood oxobslys12 mm[Hg]Dariusz Keen Work Phone: [phone]-Ilbom [facility] [address] DO Work Phone: 1(604) 372-565412-15-2021 09:13-0500Systolic blood mm[Hg] Dariusz Keen Work Phone: 1(921) [phone]-Dwfuq [facility] [address] DO Work Phone: 1(240) 796-119312-15-2021 08:57-0500Body saakji642.56 cmKim Jenna Keen Work Phone: 1(978) [phone]-Urvmm [facility] [address] DO Work Phone: 1(220) 613-439512-15-2021 08:57-0500Body mass index (BMI) [Ratio] 36.39 kg/m2Kijeffery Keen Work Phone: 1(464) [phone]-Zzejl [facility] [address] DO Work Phone: 1(469) 897-486012-15-2021 08:57-0500Body surface area Derived from formula2.01 m2Kijeffery Keen Work Phone: 1(182) [phone]-Gxqme [facility] [address] DO Work Phone: 1(421) 637-842312-15-2021 08:57-0500Body sxfibb81.16 kgKi Jenna Keen Work Phone: 1(372) [phone]-Btaoq [facility] [address] DO Work Phone: 1(396) 509-610012-15-2021 08:57-0500Diastolic blood aqceudzv190 mm[Hg]Dariusz Keen Work Phone: 1(668) [phone]-Ysqio [facility] [address] DO Work Phone: 1(431) 517-785912-15-2021 08:57-0500Heart rate74 /minKim Jenna Keen Work Phone: 1(290) [phone]-Cbqnr [facility] [address] DO Work Phone: 1(477) 504-416712-15-2021 08:57-0500Systolic blood nsxdcowr124 mm[Hg] Dariusz Keen Work Phone: 1(948) [phone]-Xrbxs [facility] [address] DO Work Phone: Encounters Encounter DateEncounter TypeCare ProviderFacilityStart: 01-10-2025 End: 54-93-1174ilizmlhclrNuazlw E Braun MD Work Phone: [facility] Work Phone: Start: 01-10-2025 End: 12-02-2360Ekakqud encounter procedureBenson Romero MD-[facility] Work Phone: Start: 94-70-6881kbjurrwqzxJnnmfj A SteinFacility:[place] Start: 12-16-2024 End: 30-95-3598Wgdlmxpoc department patient visitSamuel GhencianFacility:[place] Start: 38-78-5005Cyl-patient / Non-visitCatherine Sebastian [facility] Work Phone: Start: 05-17-2024 End: 53-69-4929woovzeljaxLkkduvqodBrown Memorial Hospital Work Phone: Start: 05-17-2024 End: 60-29-3065Wqqmduu encounter procedureFircalientes Physician Group-[facility] Work Phone: Start: 05-13-2024 End: 16-79-7892txbovdkejhNlmveazzpBrown Memorial Hospital Work Phone: Start: 05-13-2024 End: 14-48-4429Pwebohc encounter procedureFircalientes Physician Group-[facility] Dann Work Phone: Start: 10-99-4296Tuf-patient / Non-visitFirelands Physician Group-[facility] Work Phone: Start: 02-29-2024 End: 01-52-5166Eydwqxq encounter procedureFirelands Physician Group-[facility] Work Phone: Start: 45-88-9141Xfx-patient / Non-visitFirelands Physician Group-[facility] Work Phone: Start: 12-28-2023 End: 69-41-7246njuvmsochqVybbaafmkKindred Hospital [facility] Work Phone: Start: 12-28-2023 End: 44-28-8109Nacgvxz encounter procedureFirelands Physician Group-[facility] Work Phone: Start: 10-11-2023 End: 37-88-7495Qihghpx encounter procedureMichelet Velázquez [facility] Start: 10-11-2023 End: 48-34-6111wmkhgwvqvhEgcqawlbwKindred Hospital [facility] Work Phone: Start: 10-11-2023 End: 82-10-0044Dnitmzj encounter procedureDavidinova health system Physician [facility] Work Phone: Start: 09-14-2023 End: 64-29-9518zvljognxjgLdxkesfxsKindred Hospital [facility] Work Phone: Start: 09-14-2023 End: 25-36-0338Ckdxmjb encounter procedureDavidinova health system Physician Group-[facility] Work Phone: Start: 08-31-2023 End: 16-33-8798tpwdscaldgUxberpzylKindred Hospital [place] Work Phone: Start: 08-31-2023 End: 27-36-9048Syaatwn encounter procedureDavidinova health system Physician [facility] Work Phone: Start: 04-06-2023 End: 32-49-6752efrupreeorFvptxm Braun Other [facility] [employer] Other Start: 35-05-7529Jigpypuwg encounterBenson RomeroFrankie [facility] Hospitaltart: 03-22-2023 End: 29-89-7486Uvshlvumw to same day surgery Brian Contreras [facility] Start: 03-19-2023 End: 37-03-6728Hdrniuj encounter Madeleine Contreras [facility] Start: 03-18-2023 End: 35-20-4189utweeotmaxFrffit Braun Other [employer] Other Start: 24-21-1485Gownjln encounter procedureBenson RomeroFrankie Mcelroy [facility] Hospitaltart: 12-23-2022 End: 60-77-3181ngzdmkyznnMnbphk Romero Other [facility] [employer] Other Start: 89-55-9836Umdpmfatl encounterBenson RomeroFrankie Mcelroy [facility] Hospitaltart: 12-01-2022 End: 21-07-9898yozldhgtgzLyriqp Romero Other [facility] [employer] Other Start: 49-16-9522Hwizig outpatient new 45 minutes Benson [facility]: 10-12-2022 End: 44-81-8803Pljlvtz encounter procedureJairo Contreras [facility] Start: 09-24-2022 End: 16-09-5345Ffcbzid encounter Madeleine Contreras [facility] Start: 05-11-2022 End: 80-23-3626Hcgxzdo encounter Madeleine Contreras [facility] Start: 04-28-2022 End: 58-04-3365sphogeklgyRYMelanie KEEN .Facility:I2Jbcme: 04-08-2022 End: 50-95-7974Yyrqehmbu to same day surgery Brian Contreras [facility] Start: 04-07-2022 End: 13-42-5485zahnjrqodaBYMelanie KEEN .Facility:B6Elysn: 04-02-2022 End: 53-72-8822Lataavz encounter Madeleine Contreras [facility] Start: 04-01-2022 End: 80-76-5815njrnnvjyqhUO KIM E KNIGHT .Facility:N8Lleda: 12-02-2021 End: 01-53-1548kqhwjlubtuRG KIM E KNIGHT .Facility:I0Qduul: 89-72-3512Fu [employer] Dariusz Keen Work Phone: 1([phone]) [phone]-Dhywy [facility] [address] DO Work Phone: Start: 10-08-2021 End: 59-33-3184ntpdeggfnpUACDG PARKERFacility:F7Ozwri: 08-25-2021 End: 22-50-0570undydnlzljFK KIM E KNIGHT .Facility:W7Tinwa: 08-15-2021 End: 96-58-9899jnlzffsoqeKP KIM E KNIGHT .Facility:R6Lqwjj: 07-29-2021 End: 82-07-6966bkoobuhzckWS ANIKA Grossman SMITHFacility:D5Dtrkn: 07-23-2021 End: 96-78-7747ukmftzlxaoZR DARIUSZ KEEN .Facility:B2Cluzd: 20-68-4606Ma [employer] Dariusz Keen Work Phone: 1([phone]) [phone]-Rayzp [facility] DO Work Phone: Start: 83-82-3601Jp RenewalRakeshm E Keen Work Phone: 1(307) [phone]-Bwxpk [facility] DO Work Phone: Start: 35-22-6543Jzucyv outpatient visit 25 minutesDariusz Keen Work Phone: 1(368) [phone]-Jzmpn [facility] DO Work Phone: Start: 09-13-2020 End: 78-61-3033Ykiaerwixy and management of inpatientKIM KNIGHTFacility:[facility] Start: 11-09-2019 End: 53-05-6631fbfnxsajlySGL KNIGHTFacility:[facility] CENTEREchocardiogram normalKim E Keen Work Phone: 1(852) [phone]-Whqki [facility] [address] DO Work Phone: Procedures DateProcedureProcedure DetailPerforming ClinicianStart: 13-42-9354Adwxi Strep (POC)Start: 30-61-6014DEEAF Antigen (POC)Start: 60-46-7698Dftab Strep (POC) Start: 10-05-4541Cxriscrzakoktsf of left heartRyan Ben Start: 50-17-2808Wlakfeecwqnnlbb of left heartRyan eBn Start: 45-29-9488Imajwbhupdex coronary intervention of anterior descending branch of left coronary arteryTeoan Ben Start: 17-05-0528Upzjcfbcqeh of Left Heart using Low Osmolar ContrastEHAB A ELTAHAWYStart: 18-37-0921HHJEWLTYWWO OF MULT COR ART USING L OSM CONTRASTEHAB A ELTAHAWYStart: 07-28-2590VUEIEWE OF CARDIAC SAMPL \T\ PRESSURE, L HEART, PERC APPROACHEHAB A ELTAHAWYStart: 43-91-8731IGOZBBRIFQAFVWT OF RIGHT AND LEFT HEART, TRANSESOPHAGEALYOCASTA BOSWELLppendectomyTeoeri Ben Cesarean sectionKim E Keen Work Phone: Cesarean sectionRyan Víctorchacha CholecystectomyKim E Keen Work Phone: Closure of patent foramen ovaleKim E Keen Work Phone: Colposcope, device (physical object)Jairo Candelariadao Gallbladder structure (body structure)Jairo Candelariadao HysterectomyKim E Keen Work Phone: OophorectomyRyan Teagandao Operation on ovaryKim E Keen Work Phone: Total colonoscopyKim E Keen Work Phone: Plan of Treatment DateCare ActivityDetailAuthorStart: 32-63-3229WPX, Provider: Navdeep German, Status: Pen, Time: 10:30 AMFUV, Provider: Navdeep German, Status: Pen, Time: 10:30 [facility]ake[facility] 250 DO Work Phone: Start: 25-94-4566LKX, Provider: Navdeep German, Status: Pen, Time: 11:15 AMFUV, Provider: Navdeep German, Status: Pen, Time: 11:15 AMV[facility]ans Health Administration HeartAnastasiya 250 DO Work Phone: Comprehensive metabolic 1999 panel - Serum or Plasma [facility] HospitalComprehensive metabolic 1999 panel - Serum or [facility] CenterComprehenve metabolic 1999 panel - Serum or [facility] CenterMG Breast - bilateral Screening City HospitalPatient [facility] Work Phone: XR Knee - left 4 [facility] Immunizations Immunization DateImmunizationNotesCare DoamtahfHoreicdq26-93-0761Vwaqjrf COVID- 19 Vaccine 100 MCG/0.5ML Intramuscular SuspensionKim E Keen Work Phone: 1([phone]) [phone]-LcixsVan Wert County Hospital09-10-2021Moderna COVID-19 Vaccine 100 MCG/0.5ML Intramuscular SuspensionKim E Keen Work Phone: [phone]) [phone]-UqzicVan Wert County Hospital Payers DatePayer CategoryPayerPolicy [id number] 2.840.1.352988.3.57[id number] 2.840.1.902531.3.57[id number] 2..840.1.147583.3.57[id number] 2.16.840.1.723332.3.57[id number] 2..840.1.482590.3.57[id number] 2..840.1.943329.3.57[id number] 2..840.1.931587.3.57[id number] 2.0.1.380967.3.57[id number] 2.0.1.857416.3.57[id number] 2.0.1.931093.3.57[id number] 2.840.1.648268.3.579.2.727 [id number] 1958Medicare [id number] [id number] Social History DateTypeDetailFacilityNo alcohol useNo alcohol useMP-[facility] DO Work Phone: Comment on above:1 pepsi daily.;Start: 04-02-2022 End: 26-82-5206Uqljmuy smoking statusNever smoked tobacco (finding)[facility] EastTobacco smoking statusNeverClermont County Hospitalex Assigned At [facility] Campustart: 41-88-9245Zqy Assigned At [facility] Centertart: 05-13-2024 End: 76-73-3533FkmOegaqr (finding)[facility] Medical Equipment Procedure CodeEquipment CodeEquipment Original TextEquipment IdentifierDates Unknown Unknown 04/08/22 Unknown Left Anterior Descending Coronary ArteryFDAStart: 47-64-8745BVWFnnjp: 63-25-4060Ridulrt Unknown 04/08/22 Unknown Left Anterior Descending Coronary ArteryFDAStart: 95-92-5765MDVVsugp: 99-18-5239Bmuxfgv Unknown 04/08/22 Unknown Left Anterior Descending Coronary ArteryFDAStart: 29-00-3927SAVRpeix: 44-35-1514Zpemscv Unknown 04/08/22 Unknown Left Anterior Descending Coronary ArteryFDAStart: 40-97-1504WITRuwqb: 16-89-2441EXDG STYLE LITE TEST STRIPS -Unknown Unknown 04/08/22 Unknown Left Anterior Descending Coronary ArteryFDAStart: 47-08-0418OGHJohrq: 58-07-2436Aanookv Unknown 04/08/22 Unknown Left Anterior Descending Coronary ArteryFDAStart: 74-82-7392WZLAbxci: 02-79-5899Hjaqyyy Unknown 04/08/22 Unknown Left Anterior Descending Coronary ArteryFDAStart: 18-31-4759TRABiijp: 23-28-3276Znkwnlt (Freestyle Lancets) 28 gauge miscStart: 79-29-3851Ixzoroi (Freestyle Lancets) 28 gauge miscStart: 02-29-2024 End: 89-80-2317Anogfnx (Freestyle Lancets) 28 gauge miscStart: 03-21-2024 End: 36-02-1064Gwpmuxo (Freestyle Lancets) 28 gauge miscStart: 92-94-1804Xxvtrzn (Freestyle Lancets) 28 gauge miscStart: 02-29-2024 End: 93-83-5088Hlqzfow (Freestyle Lancets) 28 gauge miscStart: 03-21-2024 End: 87-07-9459Veiswrh (Freestyle Lancets) 28 gauge miscStart: 00-07-4616Rhszqju (Freestyle Lancets) 28 gauge miscStart: 02-29-2024 End: 27-24-0568Vdqjswh (Freestyle Lancets) 28 gauge miscStart: 03-21-2024 End: 03-30-2024 Functional Status LjesYdnnvexfmyXruoslPknyzemc84-38-1312Lnuwtayuye StatusN/[facility]12-18-2023Functional StatusN/[facility]12-15-2023 Functional StatusN/[facility]06-22-2023Functional StatusAv[facility]01-04-2023Functional StatusN/[facility]12-29-2022Functional StatusAv[facility] Clinical Notes 09-17-2020 to 12-16-2024 Note Date & TukrNqntMeitescd19-45-5675 NoteED Patient Education Note Dentistry Dental Extraction, Care [...] these instructions at home: Medicines ??? Take rwaf-fjt-jzxemos and prescription medicines only as told by [...] your pee (urine) pale yellow. ? Take rbhf-hzt-jhdtjfx or prescription medicines. ? Eat foods that [...] and water are not available, use hand car top bolter. ? Change and remove your gauze as [...] is okay: ? Rinse your mouth. ? Hamer or floss near your extraction area. You [...] to prevent skin damage. The risk of damageis higher if you cannot feel pain, heat, [...] you by your health (more content not included)...[facility]11-26-2024 Evaluation note* Diagnosis Onset Date Resolution Status Admit Date Abdominal bloating acuteNov2023 8:36amElevated glucose levelacuteFebruary 29, 2024 8:36amEssential (primary) hypertensionacuteFebruary 29, 2024 8:36amFacial paresthesiaacuteFebruary 29, 2024 8:36amInfluenza [facility]acSt[facility] 2024 9:03am [facility] Work Phone: 1(604) 598-106811-26-2024 Evaluation note* Diagnosis Onset Date Resolution Status Admit Date Abdominal bloating acuteFebruary 29, 2024 8:36amElevated glucose levelacuteFebruary 29, 2024 8:36amEssential (primary) hypertensionacuteFebruary 29, 2024 8:36amFacial paresthesiaacuteFebruary 29, 2024 8:36amAcute bacterial tonsillitisacute May 13, 2024 9:03amInfluenza AacSt. [facility]'s Hospital 2024 9:03am [facility] Work Phone: 1(192) 161-739312-18-2023 Hospital Discharge instructions Patient Education 03/22/2023 11:28:20 CV - Cardiovascular Discharge Instructions (CUSTOM) [place], [place] CARDIOVASCULAR DISCHARGE INSTRUCTIONS Diet: Resume pre-procedure [...] hours post procedure: Actoplus MetGlucophageGlucophage XR GlucovanceAvandametFortamet Tbv-gidwpeysfOecnwgPmkt-ikvtbbkrp GlumetzaJanumetMetaglip RiometGlycomet *Minimal pain, soreness and/or discomfort [...] you are interested in smoking cessation, contact [place] at [phone], ext. [phone]. In the event you are unable to reach your physician, please call [facility] at [phone] and the utility systems repairer operator will assist you. Seek Immediate Medical Care for: Bleeding: Apply continuous pressure to the site and Call 911. Should the arm or leg become cold, numb, blue or white call your physician immediately. Signs of infection are redness, warmth, swelling, increased tenderness, colored drainage, fever or chills Chest pain Follow Up Care 03/19/2023 14:09:21 With:Jairo Contreras Address: [facility] When:05/07/2023 14:45:00 [facility]12-14-2023 Evaluation note* Encounter Date Diagnosis Assessment Notes Treatment Notes Treatment Clinical Notes Mar, Chest pain, unspecified type (IC D-10 - R07.9) Pt agrees to go to ER. No charge for today's visit. Report called to Doris at ER. Has followup w cardio tomorrow in [place]. Alexa states all of her symptoms are very similar to those of her previous heart attack. [facility] Other 08-29-2023 Evaluation note* Encounter Date Diagnosis Assessment Notes Treatment Notes Treatment Clinical Notes Nov, Mixed hyperlipidemia (ICD-10 - E 78.2) Patient to continue to watch diet and increase exercise routine. Remain active as tolerated and we will continue to monitor with routine blood work. Patient is to continue with above medication as directed. Nov,Elevated glucose level (ICD-10 - R73.09)Check a1C Nov,Iron deficiency anemia (ICD-10 - D50.9)Assess ferritin to r/o recurrence of iron def anemia and her fatigue Nov,Fatigue, unspecified type (ICD-10 - R53.83)Assess thyroid Nov,Essential (primary) hypertension (ICD-10 - I10)Med refilled per Alexa request. Blood pressure remains well controlled at this time. Denies cardiac symptoms. Shows no signs or symptoms or poor control. Patient to continue with above medication and we will continue to monitor. Advised to pay attention to body and symptoms. Any developing patterns. Stay well hydrated. Nov,oronary artery disease involving [place] coronary artery of [place] heart without angina pectoris (ICD-10 - I25.10)Continue f/u w [facility] Cardio [facility] LIFT12 Other 06-05-2023 Evaluation + Plan note Future Scheduled Tests Laboratory* HgbA1c 09/07/22 * TSH With T4fr Reflex 09/07/22 * CBC w/ Auto Diff 09/07/22 * Comprehensive Metabolic Panel 09/07/22 * Lipid Panel 09/07/22 Radiology* CV Cardiovascular 04/07/22 [facility]01-04-2023 Hospital Discharge instructions Patient Education 04/08/2022 13:08:49 CV - Cardiovascular PCI Discharge Instructions (CUSTOM) [place], [place] Cardiovascular PCI DISCHARGE INSTRUCTIONS Diet: Resume [...] hours post procedure: Actoplus MetGlucophageGlucophage XR GlucovanceAvandametFortamet Qux-hyqchsafdRowhtpVtps-jonmkxuvh GlumetzaJanumetMetaglip RiometGlycomet Minimal pain, soreness and/or discomfort is expected. 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 [phone]. In the event you are unable to reach your physician, please call [facility] at [phone] and the utility systems repairer operator will assist you. Seek Medicare Care [...] Up Care 04/07/2022 15:40:27 With:Jairo Contreras Address: [address] [place], [place] [id number] Business (1) When:04/30/2022 12:15:00 [facility]01-04-2023 Evaluation + Plan noteExtracted from: Title:Procedure Note Heart & VascularAuthor:Ben PARRISH, Jairo RoblesDate: 04/08/22 CAD in [place] artery, (I25.10: Atherosclerotic heart disease of [place] coronary artery without angina pectoris)CAD in [place] artery Orders: aspirin, Tab-Chew, Misc, Once, Stop [...] Transthoracic Complete 05/05/22 * CV Cardiovascular 04/07/22 [facility]06-15-2021 NoteMR#: [id number] I [facility] Pt. Name: Alexa Carey Admitted: 09/13/2020 Discharged: 09/17/2020 Date of : 1970 Physician: Erin Dunn MD DISCHARGE SUMMARY PRIMARY DIAGNOSES: 1. Non-ST [...] nausea, vomiting, and subsequently transferred to the [facility] for further workup. Cardiology team consulted. [...] with nursing staff. Electronically Signed by: Erin Dunn MD 09/18/2020 08:37 A Erin Dunn MD Date Dict: 09/17/2020/02:42 P/Erin Dunn MD Date Trans: 09/17/2020 04:19 P/mario DN_JN:[id number] cc: Dariusz Keen M.D. [address] [place] [id number]. Rita's HospitalEvaluation + Plan note Future Appointments Appointment Date:04/30/2022 12:15:00 PM Scheduled Provider:Jairo Contreras MD [facility]iology Follow Up (FT) Future Scheduled Tests Radiology* Echo Transthoracic Complete 04/02/22 [facility] note Future Appointments Appointment Date:05/12/2022 03:15:00 PM Scheduled Provider:Jairo Contreras MD [facility] Type:Cardiology Follow Up (FT) Future Scheduled Tests Radiology* [facility] Future App[facility]ments Appointment Date:10/12/2022 01:45:00 PM Scheduled Provider:Jairo Contreras MD [facility] Type:Cardiology Follow Up (FT) Future Scheduled Tests Laboratory* HgbA1c 09/07/22 * TSH With T4fr Reflex 09/07/22 * CBC w/ Auto Diff 09/07/22 * Comprehensive Metabolic Panel 09/07/22 * Lipid Panel 09/07/22 Radiology* CV Cardiovascular [facility] Future Appointments Appointment Date:05/07/2023 02:45:00 PM Scheduled Provider:Jairo Contreras MD Location:[facility] Appointment Type:Cardiology Follow Up (FT) Future Scheduled Tests Laboratory* HgbA1c 09/07/22 * TSH With T4fr Reflex 09/07/22 * CBC w/ Auto Diff 09/07/22 * Comprehensive Metabolic Panel 09/07/22 * Lipid Panel 09/07/22 Radiology* CV Cardiovascular [facility] Future Appointments Appointment Date:01/11/2024 10:30:00 AM Scheduled Provider:Michelet Velázquez PA-C [facility] Type:Cardiology Follow Up (FT) [facility] Future Appointments Appointment Date:03/22/2023 09:00:00 AM Scheduled Provider: [facility] Type:CV Heart Cath (FT) Appointment Date:05/07/2023 02:45:00 PM Scheduled Provider:Jairo Contreras MD Location:[facility] Appointment Type:Cardiology Follow Up (FT) Future Scheduled Tests Laboratory* HgbA1c 09/07/22 * TSH With T4fr Reflex 09/07/22 * CBC w/ Auto Diff 09/07/22 * Comprehensive Metabolic Panel 09/07/22 * Lipid Panel 09/07/22 Radiology* CV Cardiovascular 03/22/23 * CV Cardiovascular [facility]/07/22 [facility] noteNo InformationNortLifecare [facility] LIFT12 Other Evaluation note* Diagnosis Onset Date Resolution Status Essential (primary) hypertension acuteFatigueacuteHigh cholesterolacuteLeft knee painacute [facility] Work Phone: Evaluation note* Diagnosis Onset Date Resolution Status Abdominal bloating acuteEssential (primary) hypertensionacuteFatigueacuteHigh cholesterolacuteLeft knee painacuteOSA (obstructive sleep apnea)acute [facility] Work Phone: Evaluation note* Diagnosis Onset Date Resolution Status Abdominal bloating acuteEssential (primary) hypertensionacuteFatigueacuteHigh cholesterolacuteLeft knee painacuteOSA (obstructive sleep apnea)acuteChronic low back painacuteLumbar radiculopathyacuteLeft knee painacute [facility] Work Phone: Evaluation note* Diagnosis Onset Date Resolution Status Coronary artery disease with angina pect beverly acuteLeft knee painacuteContact with and (suspected) exposure to covid-19 noneactiveSore throatnoneactive [facility] Work Phone: Evaluation note* Diagnosis Onset Date Resolution Status Admit Date Elevated glucose level acuteOctober 2024 8:49amEssential (primary) hypertensionacuteOctober 2024 8:49amHigh cholesterolacuteOctober 2024 8:49amScreening mammogram for breast canceracuteOctober 2024 8:49am [facility] Work Phone: History general Narrative - Reported* Type Description Date Medical History hypertension Medical HistoryCAROTID ARETERY STENOSISMedical HistoryHX OF TIA Medical HistoryBRADY CARDIASurgical HistoryCHOLECYSTECTOMY-2015Surgical HistoryC SECTIONSurgical HistoryTUBAL LIGATIONSurgical HistoryHYSTERECTOMYSurgical HistoryBSOHospitalization HistoryPT HAD TIAOCT 2015 [place] Other History of Present illness Narrative* The [...] medication regimen. She denies medication side effects. [facility] DO Work Phone: Hospital course Narrative No data available for this section [facility] No data available for this section [facility] No data available for this section [facility] for referral (narrative)No reason for referral information availableCl[facility] Work Phone: Summary Purpose Family History Unknown Family Member Name Dates Details Family history of congestive heart failure: Brother(V17.49, Z82.49) Status:ActiveFamily history of diabetes mellitus: Mother(V18.0, Z83.3) Status:ActiveFamily history of hypertension: Father(V17.49, Z82.49) Status:ActiveFamily history of myocardial infarction: Father, Brother(V17.3, Z82.49) Status:Active Unknown Family Member Name Dates Details Family history of myocardial infarction: Father, Brother(V17.3, Z82.49) Status:ActiveFamily history of hypertension: Father(V17.49, Z82.49) Status:ActiveFamily history of diabetes mellitus: Mother(V18.0, Z83.3) Status:ActiveFamily history of congestive heart failure: Brother(V17.49, Z82.49) Status:Active Unknown Family Member Name Dates Details Family history of congestive heart failure: Brother(V17.49, Z82.49) Status:ActiveFamily history of diabetes mellitus: Mother(V18.0, Z83.3) Status:ActiveFamily history of hypertension: Father(V17.49, Z82.49) Status:ActiveFamily history of myocardial infarction: Father, Brother(V17.3, Z82.49) Status:Active Unknown Family Member Name Dates Details Family history of congestive heart failure: Brother(V17.49, Z82.49) Status:ActiveFamily history of diabetes mellitus: Mother(V18.0, Z83.3) Status:ActiveFamily history of hypertension: Father(V17.49, Z82.49) Status:ActiveFamily history of myocardial infarction: Father, Brother(V17.3, Z82.49) Status:Active Unknown Family Member Name Dates Details Family history of myocardial infarction: Father, Brother(V17.3, Z82.49) Status:ActiveFamily history of hypertension: Father(V17.49, Z82.49) Status:ActiveFamily history of diabetes mellitus: Mother(V18.0, Z83.3) Status:ActiveFamily history of congestive heart failure: Brother(V17.49, Z82.49) Status:Active Relationship Condition Age at Onset Recorded Date/T brent Not Specified Diabetes mellitus Unknown fatherMyocardial infarctionUnknownHypertensionUnknownbrotherMyocardial infarctionUnknownbrotherHypertensionUnknownbrotherDiabetes mellitusUnknownHeart diseaseUnknownfatherHeart diseaseUnknownDeceasedUnknownNot SpecifiedDeceased UnknownDiabetes mellitusUnknown Relationship Condition Age at Onset Recorded Date/T brent mother Diabetes mellitus Unknown fatherMyocardial infarctionUnknownHypertensionUnknownbrotherMyocardial infarctionUnknownbrotherHypertensionUnknownbrotherDiabetes mellitusUnknownHeart diseaseUnknownfatherHeart diseaseUnknownDeceasedUnknownmotherDeceasedUnknown Diabetes mellitusUnknown Advance Directives Advance Directive Response Recorded Date/ Time Advance Directives No October 18 2:52pm Advance Directive Response Recorded Date/ Time Advance Directives No October 18 1:52pm Advance Directive Response Recorded Date/ Time Advance Directives No December 1:34pm Chief Complaint * I am still having [...] CONSULT DR Carlos ROMERO LT KNEE PAIN, WXReason for VisitAbdominal bloating Essential (primary) hypertension Fatigue High cholesterol Left knee pain TIMMY (obstructive sleep apnea) Chief Complaint check up CONSULT DR Carlos ROMERO LT KNEE PAIN, WX renew their handicap plaqueReason for VisitAbdominal bloating Essential (primary) hypertension Fatigue High cholesterol Left knee pain TIMMY (obstructive sleep apnea) Chronic low back pain Lumbar radiculopathy Left knee pain Chief Complaint renew their handicap plaque Sore throat, feverReason for VisitCoronary artery disease with angina pectoris Left knee pain Contact [...] 2024 9 :03am Chief Complaint Admit Date Amb Documentation December 11, 2024 1:52pm Med f/u January 10, 2025 8: 49am Reason for Visit Admit Date Elevated glucose level January 10, 2025 8:49am Essential (primary) hypertension January 10, 2025 8:49am High cholesterol January 10, 2025 8: 49am Screening mammogram for breast cancer Oc tober 2024 8:49am Additional Source Comments INFORMATION SOURCE (unrecogn ized section and content) DATE CREATED AUTHOR 09/22/2020 [facility] DATE CREATED AUTHOR AUTHOR'S ORGANIZ ATION 09/27/2020 [facility] DATE CREATED AUTHOR AUTHOR'S ORGANIZ ATION 03/20/2021 [facility] DATE CREATED AUTHOR AUTHOR'S ORGANIZ ATION 05/25/2021 [facility] DATE CREATED AUTHOR AUTHOR'S ORGANIZ ATION 07/11/2022 [facility] DATE CREATED AUTHOR AUTHOR'S ORGANIZ ATION 12/24/2024 [...] Active Start: May 13, 2024 End: May 13dc Palacios APRNAtbang ProviderActiveStart: May 13, 2024 End: May 13, 2024 Team Status: Inactive Member Role Status Dates Benson Romero MD Primary Care Provide r, Attending Provider Active Start: August 31, 2023 End: August 31, 2023 Team Status: Inactive Member Role Status Dates Benson Romero MD Primary Care Provider Active Start: September 14, 2023 End: September 14, 2023Delta Salmon ProviderActiveStart: September 14, 2023 End: September 14, 2023 Team Status: Inactive Member Role Status Dates Benson Romero MD Primary Care Provide r, Attending Provider Active Start: October 11, 2023 End: October 11, 2023 Team Status: Inactive Member Role Status Floyd Romero MD Primary Care Provider Active Start: December 28, 2023 End: December 28, 2023Latrice Oneil ProviderActiveStart: December 28, 2023 End: December 28, 2023 Team Status: Inactive Member Role Status Floyd Romero MD Primary Care Provide r, Attending Provider Active Start: May 17, 2024 End: May 17, 2024 Team Status: Active Member Role Status Floyd Romero MD Primary Care Provider Active Start: December 11, 2024 Laureen Wyatt ProviderActiveStart: December 11, 2024 Team Status: Inactive Member Role Status Floyd Romero MD Primary Care Provider Active Start: January 10, 2025 End: January 10, 2025Ney Nuno ProviderActiveStart: January 10, 2025 End: January 10, 2025 REASON FOR VISIT (unrecogniz ed section and [...] BE BASED ON THE PRIMARY CLINICAL RECORDS. [facility] [facility]. provides no warranty or guarantee of the accuracy or completeness of information in this document.
== END 2025-02-14 10:47 | disposition home or self-care (01) ==
LOC: MAMMO 10:46
PROVIDERS: PCP Family Medicine; Visit Provider Family Medicine
DX: Z12.31 Encounter for screening mammogram for malignant neoplasm of breast (principal); Z80.3 Family history of malignant neoplasm of breast
CPT/HCPCS: 77063; 77067

== ENCOUNTER 2025-02-26 21:54 | Observation (INO) | payer MEDICARE, MEDICAID, SELFPAY ==
--- OUTSIDE RECORDS SUMMARY | 2025-02-15 11:15 | XMS_ITS | Encounter Summary ---
Author Organization [facility] Address [address] 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 Procedures ECG 12 Lead Jairo Contreras MD [address] [place] [address] [address] [place] [address] Phone: tel: fax: Referral IDStatusReasonStart DateExpiration DateVisits RequestedVisits [id number]/13/202511/13/202611 * Consultation (Routine) - AuthorizedSpecialtyDiagnoses / ProceduresReferred By ContactReferred To ContactCardiology Diagnoses Coronary artery disease of [place] artery of [place] heart with stable angina pectoris Procedures Follow Up In Cardiology Jairo Contreras MD [address] [place] [address] [address] [place] [address] Phone: tel: fax: Referral IDStatusReasonStart DateExpiration DateVisits RequestedVisits [id number]/[id number]/13/202611 Reason for Visit * ReasonCommentsFollow-upFOLLOWED AT [facility] * Cardiovascular (Routine) - AuthorizedSpecialtyDiagnoses / ProceduresReferred By ContactReferred To Contact Diagnoses 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 [address] [place] [address] Phone: tel: fax: Referral IDStatusReasonStart DateExpiration DateVisits RequestedVisits [id number]/13/202511/13/202611 Encounter Details DateTypeDepartmentCare Team (Latest Contact Info)Hxxongbycok66/13/2025 11:15 AM ESTOffice Visit [facility] [address] [place] [phone] [place] [address] [facility] [address] [place], [place] [id number] Coronary artery disease of tuscarora artery of tuscarora heart with stable angina pectoris (Primary Dx) Discharge Disposition: Home Social History Tobacco UseTypesPacks/DayYears UsedDateSmoking Tobacco: NeverSmokeless Tobacco: Never Tobacco Cessation:Counseling Given: Not Answered Alcohol UseStandard Drinks/WeekCommentsNot Currently0 (1 standard drink = 0.6 oz pure alcohol)CommentsUnknownSex and Gender InformationValueDate Recorded Sex Assigned at BirthNot on fileLegal QgeVzvrbs91/25/2022 2:25 PM ESTGender IdentityNot on fileSexual OrientationNot on filedocumented as of this encounter Last Filed Vital Signs Vital SignReadingTime TakenCommentsBlood Sufuylov761/5643602/15/2025 11:16 AM EST Ghlsw161802/15/2025 11:16 AM ESTTemperature--Respiratory Rate--Oxygen Saturation-- Inhaled Oxygen Concentration--Zsybhj25.3 kg (208 lb)02/15/2025 11:16 AM EST Height--Body Mass Index35.712 8:57 AM ESTdocumented in this encounter Functional Status * BPAnswerDate of GfjjnaqfjcIxjaex089/9128902/15/2025 11:16 AM Lila Navarro LPN * PulseAnswerDate of PwgruqbbcfJsyjbm2128/13/2025 11:16 AM Lila Navarro [employer] documented as of this encounter Plan of Treatment DateTypeDepartmentCare Team (Latest Contact Info)Vqxderpmzgy69/14/2026 10:15 AM EDTOffice Visit [facility] [address] [facility] [address] [place] [phone] [place] [address] [facility] [address] [place] [address] documented as of this encounter Procedures Procedure NamePriorityDate/TimeAssociated DiagnosisCommentsECG 12-LEADRoutine 02/15/2025 11:15 AM EST Coronary artery disease of t[place] artery of tuscarora heart with stable angina pectoris documented in this encounter Results * ECG 12 Lead (02/15/2025 11:15 AM EST)Specimen (Source)Anatomical Location / LateralityCollection Method / VolumeCollection TimeReceived Time Narrative Jairo Contreras MD - 02/15/2025 4:25 PM EST NSR nonspecific STTW changes Authorizing ProviderResult TypeResult StatusJairo MOFFETT ORDERABLESFinal Result documented in this encounter Visit Diagnoses Diagnosis Coronary artery disease of tus[place]ora artery of [place] heart with stable angina pectoris- Primary documented in this encounter Care Teams Team MemberRelationshipSpecialtyStart DateEnd Date Analilia Young MD [address] [place] [address] [address] [place] [address] PCP - GeneralFamily Zcicqqqn17/13/25documented as of this encounter
[2025-02-26] VITALS (15 sets, daily range): BP systolic 180–220; BP diastolic 105–111; PULSE 62–93; TEMP 36.6; O2SAT 92–100; BMI 34.3
--- NOTE | 2025-02-26 22:06 | ECG_ITS ---
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 Measurements Intervals Meridian Rate: 86 P: 67 HI: 148 QRS: 80 QRSD: 80 T: -9 QT: 380 QTc: 424 Interpretive Statements 1100 Sinus rhythm [address] depression 4564 Twave abnormality, possible lateral ischemia 4664 Twave abnormality, possible inferior ischemia 9150 abnormal ECG Compared to ECG 03/18/2023 14:08:31 ST (T wave) deviation now present Possible ischemia now present Myocardial infarct finding no longer present Electronically Signed On 02-27-2025 6:33:01 EST by GARY MILIAN M.D.
--- NOTE | 2025-02-26 22:23 | ED.CHESTPAI1 ---
HPI - Chest Pain General Chief Complaint: Chest Pain Stated Complaint: TIGHTNESS IN CHEST, SHORTNESS OF BREATH Time Seen by Provider: 02/26/25 22:05 Source: patient Mode of arrival: walk-in History of Present Illness HPI narrative: This 54-year-old female with a history of coronary artery disease who has 2 coronary stents and states she has had 2 heart attacks presents for evaluation of midsternal chest pain and left-sided jaw pain. Patient states the pain started earlier in the evening. She took 3 nitroglycerin. The first nitroglycerin helped her but the second 2 did not change her pain. At the time of my evaluation her pain is a 6-7 out of 10. She complains of mild shortness of breath. She states she recently met with her security auditor, Dr. Mack who was formally at [facility] where she had her cardiac cath and stents placed. She maintains compliance with her medications. She denies any abdominal pain or back pain. She does not have any lower extremity pain or swelling. Related Data Home Medications ?Medication ?Instructions ?Recorded ?Confirmed amitriptyline 75 mg tablet 75 mg PO DAILY 12/08/24 02/26/25 aspirin 81 mg tablet,delayed 81 mg PO DAILY 12/08/24 02/26/25 release atenolol 50 mg tablet 50 mg PO Q24H 12/08/24 02/26/25 atorvastatin 40 mg tablet 40 mg PO DAILY 12/08/24 02/26/25 citalopram 40 mg tablet 40 mg PO DAILY 12/08/24 02/26/25 clonidine HCl 0.2 mg tablet 0.2 mg PO Q12H 12/08/24 02/26/25 clopidogrel 75 mg tablet 75 mg PO DAILY 12/08/24 02/26/25 losartan 100 mg tablet 100 mg PO DAILY 02/26/25 02/26/25 nitroglycerin 0.4 mg sublingual 0.4 mg sublingual Q5M 02/26/25 02/26/25 tablet Allergies Allergy/AdvReac Type Severity Reaction Status Date / Time lisinopril AdvReac Mild Cough Verified 12/08/24 11:57 Review of Systems ROS Status of ROS 10 or more systems reviewed and unremarkable except as noted in history and below [facility] Medical History (Updated 02/27/25 @ 00:33 by Kiya Perla MD) Myocardial infarction ?I21.9 - Acute myocardial infarction, unspecified (ICD-10) Hypertension ?I10 - Essential (primary) hypertension (ICD-10) Hypertens NOS-del w/ complication ?O16.5 - Unspecified maternal hypertension, complicating the puerperium (ICD-10) Hypertension affecting ?O16.9 - Unspecified maternal hypertension, unspecified trimester (ICD-10) Social History Smoking status: Never smoker Little interest or pleasure in doing things: not at all Feeling down, depressed, or hopeless: not at all Exam Narrative Exam Narrative: Vital signs and Nursing Notes reviewed: Pt is afebrile with a normal pulse, blood pressure is elevated 220/122, she is not hypoxic with pulse ox of 99% on room air General: Awake, alert, oriented, no acute distress, lying comfortably on the stretcher HEENT: Normocephalic atraumatic, mucous membranes are moist and pink, eyes are clear, normal conjunctiva, vision is grossly intact, posterior pharynx is normal in appearance. severe dental decay appreciated Neck: Supple, no meningeal signs, no JVD Chest: Lungs are clear to auscultation with good air entry, there is no wheezing rhonchi or rales appreciated no accessory muscle use, patient is speaking in complete sentences-no chest wall tenderness to palpation CVS: Regular rate and rhythm S1-S2, no murmurs rubs or gallops, pulses are brisk and equal bilaterally ABD: Soft, nondistended, nontender, no rebound guarding or rigidity, bowel sounds are normal, no pulsatile masses appreciated Extremities: Moving all extremities, no lower extremity tenderness or swelling noted, negative Homans' sign, pulses are brisk and equal bilaterally Skin: Normal in appearance without rash,pallor, petechiae or purpura Neuro: No focal deficits Constitutional Vital Signs, click to edit/add: Last Vital Signs Temp 98 F 02/26/25 22:01 Pulse 81 02/27/25 00:00 Resp 13 02/27/25 00:00 BP 180/89 H 02/27/25 00:00 Pulse Ox 95 02/27/25 00:00 Course Vital Signs Vital signs: Vital Signs Temperature 98 F 02/26/25 22:01 Pulse Rate 93 H 02/26/25 22:01 Respiratory Rate 20 02/26/25 22:01 Blood Pressure 220/110 H 02/26/25 22:01 Pulse Oximetry 99 02/26/25 22:01 Temperature 98 F 02/26/25 22:01 Pulse Rate 81 02/27/25 00:00 Respiratory Rate 13 02/27/25 00:00 Blood Pressure 180/89 H 02/27/25 00:00 Pulse Oximetry 95 02/27/25 00:00 MDM - Chest Pain MDM Narrative Medical decision making narrative: This 54-year-old female with a history of coronary artery disease status post stenting x 2 with a history of hypertension and high cholesterol presents for evaluation of midsternal chest pain and left-sided jaw pain. Symptoms started prior to arrival. She had taken 3 nitroglycerin prior to arrival with minimal improvement. Upon arrival her pain was 6-7 out of 10. Her blood pressure was markedly elevated with blood pressure in the 200s over 100s. EKG shows a sinus rhythm with moderate ST depression in leads II, III, aVF, V4 V5 and V6. An IV was placed and she was medicated with IV morphine and Zofran for her pain, IV Lopressor was given to her twice for her markedly elevated blood pressure with mild improvement. She was then given 10 mg of IV hydralazine. Cardiac workup was ordered. She has normal white count and stable hemoglobin. Electrolytes are normal. Initial troponin is normal. BNP is normal. 1 view chest x-ray does not show any acute infiltrate with mild cardiomegaly. Delta troponin was ordered and is also negative. She was reevaluated. She states she is feeling better and her chest pain has resolved. Her jaw pain has resolved, her shortness of breath has resolved. Her blood pressure has improved and is now 172/85. Case was discussed with the hospitalist and she is accepted for admission to stepdown unit, observation status Heart score is 6 Lab Data Attestation: I reviewed the patient's lab results. Labs: Lab Results 02/26/25 02/26/25 Range/Units 22:15 23:51 WBC 8.5 (4.0-11.0) 10^3/uL RBC 5.10 (4.20-5.40) 10^6/uL Hgb 15.1 (12.0-16.0) g/dL Hct 45.5 (36.0-48.0) % MCV 89.2 (81.0-99.0) fL MCH 29.6 (26.7-34.0) pg MCHC 33.2 (29.9-35.2) g/dL RDW 13.3 (11.0-15.0) % Plt Count 348 (150-450) 10^3/uL MPV 9.1 L (9.5-13.5) fL Neut % (Auto) 60.7 (43.0-75.0) % Lymph % (Auto) 27.0 (20.5-60.0) % Broome % (Auto) 9.9 (1.7-12.0) % Eos % (Auto) 1.7 (0.9-7.0) % Baso % (Auto) 0.5 (0.2-2.0) % Neut # (Auto) 5.1 (1.4-6.5) 10^3/uL Lymph # (Auto) 2.3 (1.2-3.8) 10^3/uL Broome # (Auto) 0.8 (0.3-0.8) 10^3/uL Eos # (Auto) 0.1 (0.0-0.7) 10^3/uL Baso # (Auto) 0.0 (0.0-0.1) 10^3/uL Abs Immat Gran (auto) 0.02 (0.00-0.03) 10^3/uL Imm/Tot Granulo (auto) 0.2 (0.0-0.5) % PT 10.1 (9.0-11.6) sec INR 0.95 Sodium 141 (136-145) mmol/L Potassium 3.5 (3.5-5.1) mmol/L Chloride 105 (98-107) mmol/L Carbon Dioxide 31.0 (21.0-32.0) mmol/L Anion Gap 8.5 BUN 10.0 (7.0-18.0) mg/dL Creatinine 0.92 (0.55-1.02) mg/dL Est GFR ( Amer) >60 (>=60 mL/min/1.73m^2) Est GFR (Non-Af Amer) >60 (>=60 mL/min/1.73m^2) BUN/Creatinine Ratio 10.9 Glucose 137 H (74-106) mg/dL Calcium 9.6 (8.5-10.1) mg/dL Total Bilirubin 0.5 (0.2-1.0) mg/dL AST 21 (15-37) U/L ALT 36 (14-59) U/L Alkaline Phosphatase 150 H (46-116) U/L Troponin I High Sens 9.3 11.7 (4.0-51.3) pg/mL NT-Pro-B Natriuret Pep 174.0 (<=900.0) pg/mL Total Protein 7.9 (6.4-8.2) g/dL Albumin 4.0 (3.4-5.0) g/dL Globulin 3.9 g/dL Albumin/Globulin Ratio 1.0 Imaging Data Chest x-ray: Radiologist's impression: ITS Impressions Chest X-Ray 02/26/25 22:50 IMPRESSION: Negative acute pleural-parenchymal disease Impression dictated by: Jonh Klein M.D. 02/26/2025 11:51 PM Dictation Location: [place] [address] Electronically authenticated by: [id number] Y Date: 02/26/2025 23:51 ECG Data Attestation: I personally reviewed and interpreted this ECG as follows: (Sinus rhythm 86 bpm, moderate ST depression, nonspecific ST changes, this was compared to 03/18/2023, leads II and III showed T wave inversion in leads V4 through V6 show new ST depression) Heart Score History: Moderately Suspicious ECG: Sign. ST Depression Age: >45-<65 years Risk Factors: >3 Risk Factors/ HX of CAD:2 Troponin: <Normal Limit Total Heart Score Recommendations & Risks:: 6 Discharge Plan Discharge Chief Complaint: Chest Pain Clinical Impression: Chest pain, Hypertension, uncontrolled Patient Disposition: Admitted as Observation Time of Disposition Decision: 00:33 Condition: Fair
[2025-02-26 22:26] LABS: Hematocrit 45.5 % (36.0-48.0); Hemoglobin 15.1 g/dL (12.0-16.0); Immature Granulocytes Abs Auto 0.02 10^3/uL (0.00-0.03); Immature Granulocytes Pct Auto 0.2 % (0.0-0.5); Lymphocytes Absolute Auto 2.3 10^3/uL (1.2-3.8); Mean Corpuscular HGB Conc 33.2 g/dL (29.9-35.2); Mean Corpuscular Hemoglobin 29.6 pg (26.7-34.0); Mean Corpuscular Volume 89.2 fL (81.0-99.0); Platelet Count 348 10^3/uL (150-450); Red Blood Count 5.10 10^6/uL (4.20-5.40); White Blood Count 8.5 10^3/uL (4.0-11.0)
[2025-02-26 22:35] LABS: INR 0.95; Prothrombin Time 10.1 sec (9.0-11.6)
[2025-02-26] MEDS: ASPIRIN 81 MG TAB.CHEW 324 MG PO (22:35)
[2025-02-26] MEDS: METOPROLOL TARTRATE 5 MG/5 ML VIAL IVP ×2 (22:35→23:08)
[2025-02-26] MEDS: MORPHINE SULFATE 4 MG/ML VIAL IV (22:35)
--- OUTSIDE RECORDS SUMMARY | 2025-02-26 22:36 | XMS_ITS | Encounter Summary ---
Author Organization [facility] Address [address] [place] [address] Phone Care Team Providers Care Senior Radiation Therapist Name Role Phone Analilia Young MD Primary Care Provider [phone] Encounter Details DateTypeDepartmentCare Team (Latest Contact Info)Lcufjssygsf43/13/2025Travel Social History Tobacco UseTypesPacks/DayYears UsedDateSmoking Tobacco: NeverSmokeless Tobacco: NeverAlcohol UseStandard Drinks/WeekCommentsNot Currently0 (1 standard drink = 0.6 oz pure alcohol)CommentsUnknownSex and Gender InformationValueDate RecordedSex Assigned at BirthNot on fileLegal AlfUmbubn41/25/2022 2:25 PM EST Gender IdentityNot on fileSexual OrientationNot on filedocumented as of this encounter Functional Status * BPAnswerDate of IslmvgivufJysabk432/9724002/15/2025 11:16 AM Lila Navarro LPN * PulseAnswerDate of ZlowdfjvczFgegct4261/13/2025 11:16 AM Lila Navarro LPN documented as of this encounter Plan of Treatment DateTypeDepartmentCare Team (Latest Contact Info)Dleaqvotjce86/14/2026 10:15 AM EDTOffice Visit [facility] [address] [place] [address] [address] [place] [phone] [place] [address] [place] [address] documented as of this encounter Visit Diagnoses Not on filedocumented in this encounter Care Teams Team MemberRelationshipSpecialtyStart DateEnd Date Analilia Young MD [address] [place], [place] [id number] PCP - GeneralFamily Cbacwqcf83/13/25documented as of this encounter
--- OUTSIDE RECORDS SUMMARY | 2025-02-26 22:36 | XMS_ITS | Clinical Summary ---
Author Organization [facility] Address [address] [place] [address] Care Team Providers Care Inpatient Services Director Name Role Phone Unavailable Primary Care Provider Unavailabl e Social History Tobacco UseTypesPacks/DayYears UsedDateSmoking Tobacco: Never AssessedUT Safety & EnvironmentAnswerDate RecordedFear of Current or Ex-PartnerNot on file 05/27/2023Emotionally AbusedNot on file4Physically AbusedNot on file 05/27/2023Sexually AbusedNot on file05/27/2023hysically or Sexually AbusedNot on file05/27/2023CommentsUnknownSex and Gender InformationValueDate RecordedSex Assigned at BirthNot on fileLegal PmbBktqje63/29/2022 11:32 PM EDT Gender IdentityNot on fileSexual OrientationNot on file Last Filed Vital Signs Vital SignReadingTime TakenCommentsBlood Zoelynal436/8608 3:15 PM EDT Mzdbq707304/29/2020 4:45 PM ESTTemperature--Respiratory Rate--Oxygen Whkoujimfg63% 11/06/2020 3:16 PM EDTInhaled Oxygen Concentration--Elinpy55.3 kg (210 lb) 11/06/2020 3:15 PM TJXNgfzmr876.6 cm (5' 4 )11/06/2020 3:11 PM EDTBody Mass Index36.05011/06/2020 3:11 PM EDT Plan of Treatment Health MaintenanceDue DateLast DoneCommentsCT Kjwctthaelzk51/10/1973Colonoscopy 1972Colorectal Cancer Woeabhxqd68/10/1973FIT-DNA1972FIT1972 FOBT1972Medicare Annual Wellness (AWV)1972 1975Jolqwjvnpvvei23/10/1973 Depression Xmjpqmnld05/10/1985Hepatitis B Vaccines (1 of 3 - 19+ 3-dose series) 1991Pap Smear1993Adult Qplccbg0504/14/1994Cervical Cancer Screening 2002HPV/Orfokk1104/14/20024298Irqwunxsg40/10/2013Zoster Vaccines (1 of 2) 2022Influenza Vaccine (#1)2024HIB [...]
--- OUTSIDE RECORDS SUMMARY | 2025-02-26 22:36 | XMS_ITS | Clinical Summary ---
Author Organization [facility] Address [address] [place] [address] Phone Care Team Providers Care Copy Manager Name Role Phone Analilia Young MD Primary Care Provider [phone] Allergies Active AllergyReactionsCriticalityNoted EsbgYokbiopwJeoykgommrpWfgtzvh50/13/2025 NirxjnhprsDbdoc12/13/7181HhoronukzmUhqtsqz18/13/2025 Medications MedicationSigDispense QuantityRefillsLast FilledStart DateEnd DateStatus amitriptyline (Elavil) 75 mg tablet Take 1 tablet (75 mg) by mouth once daily at bedtime.Active atenolol (Tenormin) 50 mg tablet Take 1 tablet (50 mg) by mouth once daily.Active cloNIDine (Catapres) 0.1 mg tablet Take 1 tablet (0.1 mg) by mouth once daily.Active losartan (Cozaar) 100 mg tablet Take 1 tablet (100 mg) by mouth once daily.Active clopidogrel (Plavix) 75 mg tablet Take 1 tablet (75 mg) by mouth once daily.Active atorvastatin (Lipitor) 40 mg tablet Take 1 tablet (40 mg) by mouth early in the morning..5Active aspirin 81 mg EC tablet Take 1 tablet (81 mg) by mouth once daily.Active nitroglycerin (Nitrostat) 0.[address] 1 tablet (0.4 mg) under the tongue every 5 minutes if needed.Active famotidine (Pepcid) 40 mg tablet Take 1 tablet (40 mg) by mouth once daily at bedtime.Active Encounters DateTypeDepartmentCare MradRapaxqjwudq87/13/2025 11:15 AM ESTOffice Visit [facility] [address] [place] [address] [address] [place] [phone] Jairo Contreras MD 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 (Primary Dx) Discharge Disposition: Home02/15/2025Travelfrom Last 3 Months Family History Medical HistoryRelationNameCommentsDiabetes type IIBrotherHeart attackBrother HypertensionBrotherHeart attackFatherHypertensionFatherCancerMotherDiabetes type IIMotherStrokeMotherRelationNameStatusCommentsBrotherFatherMother Social History Tobacco UseTypesPacks/DayYears UsedDateSmoking Tobacco: NeverSmokeless Tobacco: Never Tobacco Cessation:Counseling Given: Not Answered Alcohol UseStandard Drinks/WeekCommentsNot Currently0 (1 standard drink = 0.6 oz pure alcohol)CommentsUnknownSex and Gender InformationValueDate Recorded Sex Assigned at BirthNot on fileLegal GnvAufvjf15/25/2022 2:25 PM ESTGender IdentityNot on fileSexual OrientationNot on file Last Filed Vital Signs Vital SignReadingTime TakenCommentsBlood Bfgzmkqw627/6659102/15/2025 11:16 AM EST Zexuy559102/15/2025 11:16 AM ESTTemperature--Respiratory Rate--Oxygen Saturation-- Inhaled Oxygen Concentration--Pwhmcd74.3 kg (208 lb)02/15/2025 11:16 AM EST Hfiebu884.6 cm (5' 4 )03/19/2021 8:57 AM ESTBody Mass Index35.7105/20/2020 8:57 AM EST Plan of Treatment DateTypeDepartmentCare Team (Latest Contact Info)Ukbovjlsily34/14/2026 10:15 AM EDTOffice Visit [facility] [address] [place] [address] [address] [place] [address] [place] [address] [facility] [address], [facility] [address] [place] [address] Health MaintenanceDue DateLast DoneCommentsCT Dazgxmxgfsxm19/10/1973Colonoscopy 1972Colorectal Cancer Ijcmnnlre95/10/1973Creatinine Level1972FIT-DNA (Cologuard)1972FIT1972HIV Nxazpetvo20/10/1973Lipid Panel1972 Medicare Annual Wellness Visit (AWV)1972Potassium Level1972 Kvuctocujkqmt71/10/1973MMR Vaccines (1 of 1 - Standard series)1973Diabetes Wtmjsevrr15/10/1991Hepatitis C Imbdvgmme67/10/1991Hepatitis B Vaccines (1 of 3 - 19+ 3-dose series)1991Pneumococcal Vaccine (1 of 2 - PCV)1991 Cervical Cancer Hekyeahef21/10/1994HPV/Kollqc9404/14/1993Pap Smear1993 DTaP/Tdap/Td Vaccines (1 - Tdap)04/14/19945846Sejdstxou77/10/2013Echocardiogram , 05/22/2020, 11/10/2019, Additional history existsZoster Vaccines (1 of 2)3COVID-19 Vaccine ( - 2024- season)2024 03/01/2023, 01/10/2021, 12/13/2020Influenza HxwxpjhSoxhjdbej44/08/2025, 03/01/2023HIB VaccinesAged OutNo longer eligible based on patient's age to complete this topicHPV VaccinesAged OutNo longer eligible based on patient's age to complete this topicHepatitis A VaccinesAged OutNo longer eligible based on patient's age to complete this topicIPV VaccinesAged OutNo longer eligible based on patient's age to complete this topicMeningococcal VaccineAged OutNo longer eligible based on patient's age to complete this topicRotavirus VaccinesAged Out No longer eligible based on patient's age to complete this topic Procedures Procedure NamePriorityDate/TimeAssociated DiagnosisCommentsECG 12-LEADRoutine 02/15/2025 11:15 AM EST 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 BPNKAKZSWYREYN13/ from Last 3 Months or Most Recently Relevant to Health Maintenance Results * ECG 12 Lead (02/15/2025 11:15 AM EST)Specimen (Source)Anatomical Location / LateralityCollection Method / VolumeCollection TimeReceived Time Narrative Jairo Contreras MD - 02/15/2025 4:25 PM EST NSR nonspecific STTW changes Authorizing ProviderResult TypeResult StatusRyan Veena Contreras MDECFrankie ORDERABLESFinal Result * ECHOCARDIOGRAM (09/16/2020) Narrative 09/16/2020 Ordered by an unspecified provider. Authorizing ProviderResult TypeResult StatusOnbase ConversionCV ECHO PROCEDURES Final Result from Last 3 Months or Most Recently Relevant to Health Maintenance Insurance [address] [place] [address] Care Teams Team MemberRelationshipSpecialtyStart DateEnd Analilia Young MD [address] [place] [id number] PCP - GeneralFamily Jwjpfgpj91/13/25
--- OUTSIDE RECORDS SUMMARY | 2025-02-26 22:36 | XMS_ITS | Clinical Summary ---
Author Organization [facility] Address [address] [place] [address] Care Team Providers Care Test Desk Operator Name Role Phone Analilia Young MD Primary Care Provider [phone] Social History Tobacco UseTypesPacks/DayYears UsedDateSmoking Tobacco: Never Assessed CommentsUnknownSex and Gender InformationValueDate RecordedSex Assigned at Not on fileLegal ImqEhrwqi80/15/2023 11:40 PM EDTGender IdentityNot on file Sexual OrientationNot on file Last Filed Vital Signs Vital SignReadingTime TakenCommentsBlood Jorjbtmx523/62198 12:00 PM EDT Pulse--Temperature--Respiratory Rate--Oxygen Saturation--Inhaled Oxygen Concentration--Cmcquc30.2 kg (201 lb)12/17/2021 12:00 PM HMXDfodxc613.6 cm (5' 4 )12/17/2021 12:00 PM EDTBody Mass Index34.509/ 12:00 PM EDT Plan of Treatment Health MaintenanceDue DateLast DoneCommentsCT Gxzwwjtgikzh24/10/1973Colonoscopy 1972Colorectal Cancer Iawdkgsxf50/10/1973FIT-DNA1972FIT1972 FOBT1972 9416Njtkgprcnhhcg90/10/1973Pap Smear1993Cervical Cancer Vbdpkidfo20/10/2003HPV/Ozvsmj1404/14/20023553Xlswkmepi67/10/2013COVID-19 Vaccine ( season)/11/2020, 12/13/2020Influenza Vaccine (#1)2024 3Pneumococcal Vaccine: Pediatrics (0 to 5 Years) and At-Risk Patients (6 to 64 Years)Aged OutNo longer eligible based on patient's age to complete this topic Insurance Care Teams Team MemberRelationshipSpecialtyStart DateEnd Analilia Young MD PCP - GeneralFamily Pzccjuss35/3/24
--- OUTSIDE RECORDS SUMMARY | 2025-02-26 22:36 | XMS_ITS | CCD ---
Author Organization [facility] Care Team Providers Care Commercial Fisherman Name Role Phone DARIUSZ KEEN Primary Care Unavailable UNKNOWN, PROVIDER Attending Unavailable UNKNOWN, PROVIDER Admitting Unavailable KEEN, DARIUSZ Referring Unavailable KEEN, DARIUSZ Referring Unavailable KEEN, DARIUSZ Primary Care Unavailable ERIN DUNN Attending Unavailable GURPREET PASTOR Admitting Unavailable AR Procedure Practitioner Unavailab ESA Cosme Surgeon Unavailable AR Procedure Practitioner Unavailab YOCASTA Phillip Surgeon Unavailable Dariusz Keen Unavailable Unavailable Unavailable DARIUSZ KEEN Primary Care Physician [phone] DARIUSZ West Attending Unavailable [...] Bennett Unavailable BENSON ROMERO Primary Care Physician Michelet Velázquez Attending Unavailable Gerry Sotelo Attending Unavailable Benson Romero MD Primary Care Provider Sofia Cortes CMA Attending Provider UnavailBenson Sifuentes MD Attending Provider Allergies Allergy ClassificationReported Allergen(s)Allergy TypeDate of OnsetReaction(s) FacilityAmino Acids (1 source)Amino AcidsDrug Xokevqe42-63-9360Ixk [facility] Repository (17 sources)Lisinopril; Translations: [Lisinopril TABS][facility] AllergySaint [facility] (1 source)Adhesive bandageDrug allergy (disorder)85-46-4927Zpx [facility] Repository (2 sources)Amino Acids; Translations: [lisinopril]Drug AllergyThe [facility] (6 sources)hydrALAZINE; Translations: [hydralazine]Drug AllergyUnknown (qualifier value)[facility] (6 sources)topiramate; Translations: [topiramate]Drug AllergyUnknown (qualifier value)[facility] Medications Current Medications MedicationDrug Class(es)DatesSig (Normalized)Sig (Original)amitriptyline hydrochloride 75 mg oral tablet (20 sources)Tricyclic AntidepressantStart: 12-27-2020 End: 45-91-6717dmil 1 tablet by mouth once dailyAmitriptyline 75 mg tablet Active 75 MG PO Daily November 20, 2024 2:44pm Complies with drug therapy aspirin 81 mg delayed release oral tablet (20 sources)Platelet Aggregation Inhibitor, Nonsteroidal Anti-inflammatory Drug Start: 02-07-2024 End: 34-84-1677rlij 1 tablet by mouth once dailyAspirin 81 mg tablet,delayed release (DR/EC) Active 0 .ROUTE .COMPLEX November 14, 2024 8:13am TAKE 1 TABLET BY MOUTH EVERY DAY Complies with drug therapyStart: 12-27-2020 End: 80-25-0681pqhz 1 tablet by mouth once dailyAspirin 81 mg tablet,delayed release (/EC) Discontinued 81 MG PO Daily December 27, 2020 12:00am February 07, 2024 5:39pmatenolol 50 mg oral tablet (20 sources)beta-Adrenergic BlockerStart: 87-70-6578rvrf 1 tablet by mouth once dailyAtenolol 50 mg tablet Active 0 .ROUTE .COMPLEX October 30, 2024 3:43pm TAKE 1 TABLET BY MOUTH EVERY DAY Complies with drug therapyStart: 33-36-0162ufgp 1 tablet by mouth twice dailyatenolol 50 mg Tab 50 mg = 1 tab(s), Oral, BID, # 180 tab(s), Refills(s) 3, Pharmacy: [facility]/pharmacy #[id number], 164, cm, 05/12/22 15:46:00 EST, Height/Length Dosing, 90, kg, 05/12/22 15:46:00 EST, Weight Dosing Start Date: 08/18/22 Status: OrderedStart: 12-27-2020 End: 57-00-5837yriv 1 tablet by mouth once dailyAtenolol 50 mg tablet Discontinued 50 MG PO Daily May 10, 2024 4:39pm October 30, 2024 3:43pm atorvastatin 40 mg oral tablet (20 sources)HMG-CoA Reductase InhibitorStart: 12-27-2020 End: 00-04-5410mpre 1 tablet by mouth once dailyAtorvastatin 40 mg tablet Active 40 MG PO Daily December 25, 2024 12:30pm Complies with drug therapy cholecalciferol 0.125 mg oral tablet (12 sources)Vitamin DStart: 71-64-6543fmff 1 tablet by mouth once daily Cholecalciferol (Vitamin D3) (Vitamin D3) 125 mcg (5,000 unit) Tablet Active 125 MCG PO Daily December 27, 2020 12:00am Complies with drug therapyVitamin D3 25 MCG (1000 UT) Oral Capsule TAKE DIRECTED. Quantity: 0 Refills: 0 Ordered: 19-Mar-2021 DO Activecitalopram 40 mg oral tablet (20 sources)Serotonin Reuptake InhibitorStart: 10-22-2023 End: 52-33-2193bwgu 1 tablet by mouth once dailyCitalopram 40 mg tablet Active 0 .ROUTE .COMPLEX 90 November 14, 2024 8:13am TAKE 1 TABLET BY MOUTHEVERY DAY Complies with drug therapyStart: 60-43-8347spfn 1 tablet by mouth once daily citalopram 40 mg Tab See Instructions, TAKE 1 TABLET BY MOUTH EVERY DAY, # 90 tab(s), Refills(s) 0,Pharmacy: [facility] STORE [id number], 164, cm, 03/22/23 7:23:00 EST, Height/Length Dosing, 92.3, kg, 03/22/23 7:23:00 EST, Weight Dosing Start Date: 07/19/23 Status: OrderedStart: 36-39-1471dsai 1 tablet by mouth once daily citalopram 40 mg Tab See Instructions, TAKE 1 TABLET BY MOUTH EVERY DAY, # 90 tab(s), Refills(s) 0,Pharmacy: [facility] STORE [id number], 164, cm, 11/12/22 13:53:00 EDT, Height/Length Dosing, 92.3, kg, 11/12/2312:53:00 EDT, Weight Dosing Start Date: 02/16/23 Status: OrderedStart: 12-27-2020 End: 90-91-2068hjts 1 tablet by mouth once dailyCitalopram 20 mg tablet Discontinued 20 MG PO Daily December 27, 2020 12:00am October 22, 2023 10:50am cloNIDine hydrochloride 0.2 mg oral tablet (20 sources)Central alpha-2 Adrenergic AgonistStart: 66-96-5895nwer 1 tablet by mouth twice dailyClonidine Hcl 0.2 mg tablet Active 0 .ROUTE .COMPLEX 180 May 30, 2024 4:52pm TAKE 1 TABLET BY MOUTH TWICE A DAY Complies with drug therapyStart: 91-14-2654yjny 1 tablet by mouth twice dailycloNIDine 0.3 mg Tab 0.3 mg = 1 tab(s), Oral, BID, # 180 tab(s), Refills(s) 3, Pharmacy: [facility]/pharmacy #[id number], 164, cm, 09/24/22 12:51:00 EDT, Height/Length Dosing, 91.4, kg, 09/24/22 12:51:00 EDT, Weight Dosing Start Date: 09/24/22 Status: OrderedStart: 98-39-7925wnuu 1 tablet by mouth twice dailycloNIDine 0.1 mg tab 0.1 mg = 1 tab(s), Oral, BID, # 60 tab(s), Refills(s) 3, Pharmacy: [facility]/pharmacy #[id number], 164, cm, 04/02/22 13:47:00 EST, Height/Length Dosing, 94.2, kg, 04/02/22 13:47:00 EST, Weight Dosing Start Date: 04/02/22 Status: OrderedStart: 12-27-2020 End: 27-42-6163ndjx 1 tablet by mouth twice dailyClonidine Hcl 0.2 mg tablet Discontinued 0.2 MG PO Twice daily 180 February 29, 2024 10:42am May 30, 2024 4:52pmtake 2 tablets by mouth at bedtimecloNIDine HCl - 0.2 MG Oral Tablet TAKE 2 TABLETS AT BEDTIME. Quantity: 0 Refills: 0 Ordered: 19-Mar-2021 DO ActiveDilTIAZem (Eqv-Dilacor XR) 120 mg/24 hours oral capsule, extended release (2 sources)Start: 84-46-8950QngTLAYnf (Eqv-Dilacor XR) 120 mg/24 hours oral capsule, extended release 120 mg = 1 cap(s), Oral, Daily, # 90 cap(s), Refills(s) 1, Pharmacy: [facility]/pharmacy #[id number], 160, cm, 09/07/22 18:32:00 EDT, Height/Length Dosing, 91.2, kg, 09/07/22 18:32:00 EDT, Weight Dosing Start Date: 09/07/22 Status: OrderedErgocalciferol (3 sources)Provitamin D2 CompoundStart: 94-63-0610Zhoehoz D2 Refills(s) 0 Start Date: 04/02/22 Status: Orderedfamotidine 40 mg oral tablet (20 sources)Histamine-2 Receptor AntagonistStart: 10-21-2023 End: 47-58-1498lswj 1 tablet by mouth once daily at bedtimeFamotidine 40 mg tablet Active 0 .ROUTE .COMPLEX 90 November 20, 2024 12:23pm TAKE 1 TABLET BY MOUTH EVERYDAY AT BEDTIME Complies with drug therapyStart: 12-27-2020 End: 50-97-0713Jphlwsaowq 40 mg tablet Discontinued 40 MG PO As Directed December 27, 2020 12:00am October 21, 2023 8:47amhydroCHLOROthiazide 12.5 mg oral tablet (13 sources)Thiazide DiureticStart: 37-45-6622ganp 1 tablet by mouth once daily hydrochlorothiazide 12.5 mg Tab 12.5 mg = 1 tab(s), Oral, Daily, # 30 tab(s), Refills(s) 2, Pharmacy: [facility]/pharmacy #[id number], 164, cm, 10/11/23 13:23:00 EDT, Height/Length Dosing, 94.6, kg, 10/11/23 13:23:00 EDT, Weight Dosing Start Date: 10/11/23 Status: OrderedStart: 12-27-2020 End: 40-50-8669Xephbcvnkcmvxhohhcj 25 mg tablet Discontinued 25 MG PO As Directed December 27, 2020 12:00am February 29, 2024 9:48amNitro Sublingual 0.4 (2 sources)Nitro Sublingual 0.4 for 90 days Activenitroglycerin 0.4 mg sublingual tablet (20 sources)Nitrate VasodilatorStart: 06-16-2024 End: 13-05-2794Zsvnyeqggddfi 0.4 mg tablet, sublingual Active 0 .ROUTE .COMPLEX December 15, 2024 11:37am PLACE 1 TABLET UNDER TONGUE EVERY 5 MINS, UP TO 3 DOSES NEEDED FOR CHEST PAIN DIRECTED Complies with drug therapyStart: 12-27-2020 End: 44-39-9732Zlhqpxulgwhtm 0.4 mg tablet, sublingual Discontinued 0.4 MG SUBLINGUAL As Directed as needed for Chest Pain October 11, 2023 10:09am June 16, 2024 8:50amNitroglycerin 0.[address] 1 TABLET UNDER TONGUE EVERY 5 MINS, UP TO 3 DOSES NEEDED FOR CHEST PAIN DIRECTED for 30 ActivePOLYETHYLENE GLYCOL 3350 (4 sources)Osmotic LaxativeStart: 94-86-2381EyjpJit - 17 grams Orally daily for 1 month August, Hxtjed63 hr ranolazine 500 mg extended release oral tablet (17 sources)Anti-anginalStart: 85-13-4875dthr 1 tablet by mouth twice daily ranolazine 500 mg oral ER Tab See Instructions, TAKE 1 TABLET BY MOUTH TWICE A DAY, # 180 tab(s), Refills(s) 1, Pharmacy: [facility] STORE [id number], 164, cm, 03/22/23 7:23:00 EST, Height/Length Dosing, 92.3, kg, 03/22/23 7:23:00 EST, Weight Dosing Start Date: 07/19/23 Status: OrderedStart: 16-58-0146doov 1 tablet by mouth twice dailyranolazine 500 mg oral ER Tab See Instructions, TAKE 1 TABLET BY MOUTH TWICE A DAY, # 180 tab(s), Refills(s) 1, Pharmacy: [facility] STORE [id number], 164, cm, 11/12/22 13:53:00 EDT, Height/Length Dosing, 92.3, kg, 11/12/22 13:53:00 EDT, Weight Dosing Start Date: 02/16/23 Status: OrderedStart: 77-27-3558klri 1 tablet by mouth twice dailyranolazine 500 mg oral ER Tab 500 mg = 1 tab(s), Oral, BID, # 180 tab(s), Refills(s) 1, Pharmacy: [facility]/pharmacy #[id number], 160, cm, 09/07/22 18:32:00 EDT, Height/Length Dosing, 91.2, kg, 09/07/22 18:32:00EDT, Weight Dosing Start Date: 09/07/22 Status: OrderedStart: 15-38-3569skhh 1 tablet by mouth twice dailyranolazine 500 mg oral ER Tab 500 mg = 1 tab(s), Oral, BID Start Date: 04/02/22 Status: OrderedStart: 07-42-3752splr 1 tablet by mouth every twelve hoursRanolazine [...] (20 sources)Angiotensin 2 Receptor BlockerStart: 02-15-2024 End: 39-98-0519kmnu 1 tablet by mouth once dailyValsartan 320 mg tablet Active 0 .ROUTE .COMPLEX 90 November 30, 2024 12:19pm TAKE 1 TABLET BY MOUTH EVERY DAY Complies with drug therapyStart: 12-27-2020 End: 54-63-6290Vmenpgcqp 320 mg tablet Discontinued 320 MG PO As Directed December 27, 2020 12:00am February 15, 2024 11:50amVitamin D-3 1000 UNIT (4 sources)take 1 capsule by mouth once dailyVitamin D-3 1000 UNIT 1 capsule Orally Once a day Active Completed/Discontinued Medications MedicationDrug Class(es)DatesSig (Normalized)Sig (Original)amLODIPine 5 mg oral tablet (6 sources)Dihydropyridine Calcium Channel BlockerStart: 05-13-2024 End: 64-36-9499knir 1 tablet by mouth once dailyAmlodipine 5 mg tablet Discontinued 5 MG PO Daily May 13, 2024 1:00am May 13, 2024 10:08am Start: 11-29-6251pcou 1 tablet by mouth once dailyamLODIPine 5 mg Tab 5 mg = 1 tab(s), Oral, Daily, # 90 tab(s), Refills(s) 3, Pharmacy: [facility]/pharmacy#[id number], 164, cm, 03/19/23 13:02:00 EST, Height/Length Dosing, 95.1, kg, 03/19/23 13:02:00 EST, Weight Dosing Start Date: 03/19/23 Status: Orderedamoxicillin 500 mg oral capsule (2 sources)Penicillin-class AntibacterialStart: 05-13-2024 End: 96-36-1308wzvn 1 capsule by mouth twice dailyAmoxicillin 500 mg capsule Discontinued 500 MG PO Twice daily 22 01May 13, 2024 1:00am May 17, 2024 10:21ambenzonatate 200 mg oral capsule (2 sources)Non-narcotic AntitussiveStart: 05-17-2024 End: 93-35-5757Jhkiepfkrwx 200 mg capsule Discontinued 200 MG PO 2-3 TIMES PER DAY as needed for cough 2024 1:00am January 10, 2025 8:54am bumetanide 1 mg oral tablet (20 sources)Loop DiureticStart: 12-27-2020 End: 66-78-0855Kuwteoejbb 1 mg tablet Discontinued 1 MG PO .prn August 31, 2023 8:45am February 29, 2024 9:47amclopidogrel 75 mg oral tablet (20 sources)P2Y12 Platelet InhibitorStart: 12-27-2020 End: 62-97-3659cpyl 1 tablet by mouth once dailyClopidogrel 75 mg tablet Discontinued 75 MG PO Daily 90 July 23, 2023 2:59pm February 29, 2024 10:43amcyproheptadine hydrochloride 4 mg oral tablet (12 sources)Start: 12-27-2020 End: 73-52-5692Eqjynscpteevzi 4 mg tablet Discontinued 4 MG PO As Directed as needed for Headache December 27, 2020 12:00am February 29, 2024 9:47amtake 2 tablets by mouth every eight hoursCyproheptadine HCl - 4 MG Oral Tablet TAKE 2 TABLET Every 8 hours Quantity: 0 Refills: 0 Ordered: 19-Mar-2021 DO Active diclofenac sodium 0.01 mg/mg topical gel (5 sources)Nonsteroidal Anti-inflammatory DrugStart: 85-36-4402pjnebhvbty topical 1% gel 2 gm, Topical, TID, Refill(s) 0 Start Date: 09/07/22 Status: OrdereddilTIAZem hydrochloride 120 mg oral tablet (16 sources)Calcium Channel BlockerStart: 02-29-2024 End: 02-29-4474eglo 1 tablet by mouth once dailyDiltiazem Hcl 120 mg tablet Discontinued 120 MG PO Daily February 29, 2024 1:00am February 29, 2024 9:48am FreeTextSi tablet once a day; Note: Source Status: Taking; Provider: Nick Billingsley ( )Start: 38-81-1689lclm 1 capsule by mouth once dailyDilt-XR 120 MG Oral Capsule Extended Release 24 Hour TAKE 1 CAPSULE BY MOUTH EVERY DAY Quantity: 90Refills: 0 Ordered: 10-Apr-2021 Navdeep German DO Start : 10-Apr-2021 Activetake 1 tablet by mouth every twenty-four hoursdilTIAZem HCl 120 MG 1 tablet once a day Rixxxj08 hr isosorbide mononitrate 60 mg extended release oral tablet (20 sources)Nitrate VasodilatorStart: 12-27-2020 End: 53-83-2211Ohpdncvyue Mononitrate 60 mg tablet extended release 24 hr Discontinued 60 MG PO As Directed December 27, 2020 12:00am January 10, 2025 8:55amtake 1 tablet by mouth every twenty-four hoursIsosorbide Mononitrate ER 60 MG 1 tablet once a day Activemeloxicam 15 mg oral tablet (9 sources)Nonsteroidal Anti-inflammatory DrugStart: 11-22-2023 End: 77-81-2968ormp 1 tablet by mouth once dailyMeloxicam 15 mg tablet Discontinued 0 .ROUTE .COMPLEX November 22, 2023 6:36am February 29, 2024 9:49am TAKE 1 TABLET BY MOUTH EVERY DAYStart: 09-14-2023 End: 34-30-0346jzli 1 tablet by mouth once dailyMeloxicam 15 mg tablet Discontinued 15 MG PO Daily September 14, 2023 12:00am November 22, 2023 6:36am 24 hr NIFEdipine 60 mg extended release oral tablet (7 sources)Dihydropyridine Calcium Channel BlockerStart: 12-27-2020 End: 56-18-4393Leglrpkkhx 60 mg tablet extended release Discontinued 60 MG PO As Directed December 27, 2020 12:00am February 29, 2024 9:49amondansetron 4 mg disintegrating oral tablet (2 sources)Serotonin-3 Receptor AntagonistStart: 05-17-2024 End: 57-60-1520qwut 1 tablet by mouth every eight hours as needed for nausea and vomitingOndansetron 4 mg tablet,disintegrating Discontinued 4 MG PO Q8H as needed for nausea and vomiting May 17, 2024 1:00am January 10, 2025 8:56amoseltamivir 75 mg oral capsule (3 sources)Neuraminidase InhibitorStart: 05-13-2024 End: 50-98-7576zaop 1 capsule by mouth twice dailyOseltamivir (Tamiflu) 75 mg capsule Discontinued 75 MG PO Twice daily 10 May 13, 2024 1:00am January 10, 2025 8:56ampotassium chloride 20 meq extended release oral tablet (18 sources)Start: 58-15-8140xtcw 1 tablet by mouth oncepotassium chloride 20 mEq ER Tab 40 mEq = 2 tab(s), Oral, Once, Take one time dose in preparation for cardiac cath, # 2 tab(s), Refills(s) 0, Pharmacy: [facility]/pharmacy #[id number], 164, cm, 04/08/22 9:20:00 EST, Height/Length Dosing, 94.2, kg, 04/08/22 9:20:00 EST, Weight Dosing Start Date: 04/08/22 Status: OrderedStart: 12-27-2020 End: 72-25-7583Hkaaylkez Chloride 10 mEq tablet extended release Discontinued 10 MEQ PO As Directed December 27, 2020 12:00am February 29, 2024 9:49amtake 1 tablet by mouth at mealtime as neededKlor-Con M10 10 MEQ 1 tablet with food Orally prn w bumex Activespironolactone 25 mg oral tablet (12 sources)Aldosterone AntagonistStart: 02-29-2024 End: 15-93-1737cdol 1 tablet by mouth once dailySpironolactone 25 mg tablet Discontinued 25 MG PO Daily February 29, 2024 1:00am January 10, 2025 8:56am FreeTextSi tablet once a day; Note: Source Status: Taking; Provider: Nick Billingsley ( )Start: 45-87-5698euwq 1 tablet by mouth once daily spironolactone 25 mg Tab 25 mg = 1 tab(s), Oral, Daily, # 60 tab(s), Refills(s) 3, Pharmacy: [facility]/pharmacy #[id number], 164, cm, 09/24/22 12:51:00 EDT, Height/Length Dosing, 91.4, kg, 09/24/22 12:51:00 EDT,Weight Dosing Start Date: 09/24/22 Status: Ordered Problems Active Problems Problem ClassificationProblemDateDocumented DateEpisodic/ChronicAbdominal pain (4 sources)Abdominal pain; Translations: [Unspecified abdominal pain]Episodic Acute and chronic tonsillitis (3 sources)Acute bacterial tonsillitis; Translations: [Acute tonsillitis due to other specified organisms]31-10-3754FrmudjtqCxnifnv disorders (6 sources)Anxiety disorder, unspecified; Translations: [Anxiety]Onset: 606824-74-6390PkccftiMtqjpmt and circulatory congenital anomalies (10 sources)Premature closure of foramen ovale; Translations: [Other bulbus cordis anomalies and anomalies of cardiac septal closure]24-11-1593Mzjporh Cardiac dysrhythmias (10 sources)Tachycardia; Translations: [Tachycardia, unspecified]08-14-2022 EpisodicCongestive heart failure; nonhypertensive (5 sources)Congestive heart dpewiqo01-88-1993RicfqerQclktmlz atherosclerosis and other heart disease (20 sources)History of myocardial infarction; Translations: [Old myocardial infarction]Onset: 435981-70-9386HuhflunBanfijtpgv and other anemia (5 sources)Psavtq43-01-0119OhoittpeSgxjfofotm and other anemia (4 sources)Iron deficiency anemia; Translations: [Iron deficiency anemia, unspecified]EpisodicDeficiency and other anemia (1 source)Iron deficiency anemia, unspecifiedEpisodicDiabetes mellitus with complications (3 sources)Hyperglycemia due to type 2 diabetes mellitus; Translations: [Type 2 diabetes mellitus with hyperglycemia]85-55-0747NoatbtwWriaylan mellitus without complication (12 sources)Hyperglycemia, unspecified; Translations: [Other abnormal glucose] Onset: 77-29-4662JkraruutAryxnahxk of lipid metabolism (20 sources)Hyperlipidemia; Translations: [Other and unspecified hyperlipidemia] Onset: 74-81-9483UwahitwTcicvtk on above:Problem List clean-up per request of Phys. EHR CmteEssential hypertension (20 sources)Benign essential hypertension; Translations: [Benign essential hypertension]Onset: 64-98-1466UnscuguPtomxotkk and duodenitis (4 sources)Gastritis; Translations: [Gastritis, unspecified, without bleeding] EpisodicGastrointestinal hemorrhage (7 sources)Hematochezia; Translations: [Melena]69-42-7844HtwosfyaOmzuywi on above:Problem List clean-up per request of Phys. EHR CmteHeart valve disorders (5 sources)Mitral valve eiyrvrxvg08-20-4670CyualblZbbqlumgkvgu with complications and secondary hypertension (1 source)Hypertensive urgency; Translations: [HYPERTENSIVE URGENCY]Onset: 01-70-0541YtkfdtaYsmsttdhoyjzs and screening for infectious disease (1 source)Contact with or exposure to other viral diseases; Translations: [Exposure to 2019 novel coronavirus]29-72-0361HuggghveXebbfesrm (5 sources)Influenza due to Influenza A virus; Translations: [Influenza due to other identified influenza virus with other respiratory manifestations] 00-02-1476ZjqpfyybEvmqdyd and fatigue (16 sources)Fatigue; Translations: [Other fatigue]28-30-2327WrhxmwnzPrdbemc (5 sources)Pityriasis gtgywzfixu21-25-8619FoanwjvaOfoivp and vomiting (4 sources)Nausea; Translations: [Nausea]EpisodicNonspecific chest pain (10 sources)Chest pain; Translations: [Chest pain, unspecified]Onset: 04-07-2022 EpisodicNutritional deficiencies (6 sources)Vitamin D deficiency, unspecified; Translations: [Vitamin D deficiency]Onset: 392095-08-8351JkcenmyIsfcypeiknatin (5 sources)Bilateral osteoarthritis of -50-5893GktiidmTrrct endocrine disorders (4 sources)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, simple virilizing type; Translations: [Adrenogenital disorder,unspecified]ChronicOther gastrointestinal disorders (4 sources)Irritable bowel syndrome; Translations: [Irritable bowel syndrome without diarrhea]ChronicOther gastrointestinal disorders (4 sources)Swollen abdomen; Translations: [Abdominal distension (gaseous)] EpisodicOther gastrointestinal disorders (4 sources)Constipation alternates with diarrhea; Translations: [Other specified symptoms and signs involving the digestive system and abdomen]EpisodicOther gastrointestinal disorders (6 sources)Abdominal bloating; Translations: [Abdominal distension (gaseous)] 50-48-9791YfrepbxtKimnr gastrointestinal disorders (4 sources)Abdominal distension (gaseous); Translations: [Flatulence, eructation, and gas pain]40-21-2353SiwzfyepXpftk lower respiratory disease (1 source)Dyspnea; Translations: [Shortness of breath]Onset: 48-93-2128Raiuuswe Other nervous system disorders (3 sources)Facial paresthesia; Translations: [Paresthesia of skin]02-29-2024 EpisodicOther nervous system disorders (2 sources)Paresthesia of skin; Translations: [Disturbance of skin sensation] 26-20-6703ZpiccwqtVlecy non-traumatic joint disorders (4 sources)Pain in joints of left hand; Translations: [PAIN IN JOINTS OF LEFT HAND]Onset: 13-27-1581KpjukhzbOlmba non-traumatic joint disorders (12 sources)Pain in left knee; Translations: [Left knee pain]87-56-0378Tlazqjbw Other nutritional; endocrine; and metabolic disorders (5 [...] for screening mammogram for malignant neoplasm of breast]00-01-7839HtmsjdtsOryyf upper respiratory infections (4 sources)Acute pharyngitis, unspecified; Translations: [Acute pharyngitis] 65-56-9040KhmuuzofIrpxxkhssb and visceral atherosclerosis (5 sources)Arteriosclerotic vascular ekzurpt74-31-6843AcpgmazXxwzndyp codes; unclassified (6 sources)Obstructive sleep apnea syndrome; Translations: [Obstructive sleep apnea (adult) (pediatric)]95-12-5376JrhdjxmYeevxvdg codes; unclassified (2 sources)Obstructive sleep apnea (adult) (pediatric); Translations: [Obstructive sleep apnea (adult)(pediatric)]51-92-5699WisjbuuLejfqbezzzp; intervertebral disc disorders; other back problems (4 sources)Unspecified inflammatory spondylopathy, cervical region; Translations: [UNS INFLAM SPONDYLOPATHIES CERV RGN]Onset: 90-01-3308Iibbcvg Spondylosis; intervertebral disc disorders; other back problems (14 sources)Lumbar radiculopathy; Translations: [Radiculopathy, lumbar region] 74-57-1123EximwqziHybwszfhh cerebral ischemia (5 sources)Transient cerebral kfbmnkye80-41-1367JmqzkeuKrmqs infection (3 sources)Disease caused by 2019-nCoV; Translations: [COVID-19]12-28-2023 Episodic Past or Other Problems Problem ClassificationProblemDateDocumented DateEpisodic/ChronicCoagulation and hemorrhagic disorders (1 source)Hemorrhagic condition, unspecified; Translations: [HEMORRHAGIC CONDITION UNSPECIFIED]Onset: 42-08-1796PbapqkslHmawnjrdbr and other anemia (4 sources)Anemia, unspecified; Translations: [ANEMIA UNSPECIFIED]Onset: 60-08-0885NnhywoweGertbbimj of teeth and jaw (5 sources)Other specified disorders of teeth and supporting structures; Translations: [Periapical abscess without sinus]Onset: 48-17-2622VgbezrzxPsvlj aftercare (1 source)Other fci (current) drug therapy; Translations: [OTH [facility] CURRENT DRUG THERAPY]Onset: 53-64-4609LvinviutQmoqq aftercare (1 source)[facility] (current) use of aspirin; Translations: [MEDICAL ADMINISTRATIVE SPECIALIST CURRENT USE OF ASPIRIN]Onset: 77-01-4501ZkjzuebyUfzih aftercare (1 source)[facility] (current) use of oral hypoglycemic drugs; Translations: [[facility] USE ORAL HYPOGLYCEMIC DX]Onset: 21-62-5229ZcsblbykAaocn circulatory disease (1 source)Personal history of transient ischemic attack (TIA), and cerebral infarction without residual deficits; Translations: [PERS HX TIA AND CI NO RESID DEFICIT]Onset: 62-44-3165JxspkqjvCdipo connective tissue disease (1 source)Other muscle spasm; Translations: [OTHER MUSCLE SPASM]Onset: 41-58-7832WjsjgksyJyeeueic codes; unclassified (1 source)Acquired absence of other specified parts of digestive tract; Translations: [ACQ ABSENCE OTH PART DIGESTV TRACT]Onset: 77-39-6192Inehvepd Unclassified (5 sources)Never smoked tobacco; Translations: [Never a smoker] Results Test NameValueInterpretationReference RangeFacilityED Clinical Summaryon [id number] Clinical SummaryED Clinical Summary [address] [address] ED Clinical Summary Person Information Name: ALEXA CAREY/[facility] Age: 54 Years : 1970 Sex: Female Language: Latvian PCP: BENSON ROMERO MD Marital Status: Single [...] 12/16/2024 12:20:41 12/16/2024 12:20:41 12/16/2024 12:20:41 ADDRESS: [address] [place] [phone] PHYS DOC NOTES: MEDICAL INFORMATION: Prescriptions Given: [...] Follow up: With: Address: When: BENSON ROMERO [address] [place] [id number] [employer] (1) In 3 days 12/19/2024 Comments: Follow-up with your dentist DIAGNOSIS: Bleeding post tooth extraction; Post surgical complicationNoCasper Stoner Medical CenterED Note-Physicianon [id number] Note-PhysicianED Note-Physician Basic Information Time Seen: Michael Espino PA-C 12/16/2024 11:14 Chief Complaint Pt states tooth extraction on 12/08. Pt states that she was at the [facility] for cauterization after the extraction d/t bleeding. [...] BENSON NICK In 3 days 12/19/[address] [place] [address] Business (1) Additional Instructions: Follow-up with your [...] made to ensure accuracy, however, inadvertently computerized boss miner mistakes may be present. Appropriate healthcare PPE [...] Oral, Daily atenolol 50 (more content not included)...[facility] Comment on above:Result Comment: Electronically Signed By: Michael Espino PA-C\.br\Date and Time Signed: 12/17/2511:31 EDT\.br\Electronically Co-Signed By: Gerry Sotelo MD\.br\Date and Time Co-Signed: 12/16/24 20:19 EDTED Patient Summaryon [id number] Patient SummaryED Patient Summary [place] [address] Patient Discharge Instructions Person Information Name: ALEXA CAREY Age: 54 Years Arrival Date: 12/16/2024 11:11:44 Discharge Diagnosis: Bleeding post tooth extraction; Post surgical complication Primary Care Physician: BENSON ROMERO MD Provider Information Primary Provider: Gerry Sotelo MD Advanced Neckties Painter:Michael Espino PA-C The exam and treatment you received in the Emergency Department were for an urgent problem and are not intended as complete care. It is important that you follow up with a doctor, nurse practitioner,or physician???s surgical first assistant for ongoing care. If your symptoms [...] Instructions: With: Address: When: BENSON ROMERO [address] [place], [place] [id number] Business (1) In 3 days 12/19/2024 Comments: [...] opioids can be used to help relieve zqutrsfo-jp-hsrvcg pain and are often prescribed following a [...] abuse and overdose. ? (more content not included)...[facility] DublinInfluenza virus A and B and SARS-CoV-2 (COVID-19) RNA panel - Respiratory system specon 27-46-0862Cccgivxjo virus A and B RNA and SARS-CoV-2 (COVID-19) N gene panel RAJINDER+probe (Resp)Influenza virus A and B and SARS-CoV-2 (COVID-19) RNA panel - Respiratory system specEast [facility] Regional HospitalLaboratory - Microbiology and Antimicrobial susceptibilityon 29-17-0602RLOD-CoV-2 (COVID-19) RNA RAJINDER+probe Ql (Unsp spec)NegativeEast Ohio Regional HospitalNo Panel InformationOrdered By: Chelsy Palacios on 85-92-6768Uybau Strep (POC)[facility] HospitalNo Panel Informationon 09-44-2987XTO Influenza B (RAJINDER) NegativeEast Ohio Regional HospitalBasophils Auto (Bld) [#/Vol]on 79-21-8578Auwzaensx (Bld) [#/Vol]Automated basophil count0.0-0.1FDiley Ridge Medical CenterBasophils/100 WBC Auto (Bld)on 96-54-7907Cqdlytclp/100 WBC (Bld)Automated basophil %0.2-2.0[facility] Eosinophils/100 WBC Auto (Bld)on 64-21-5611Bpcdmmhtqjf/100 WBC (Bld)Automated eosinophil %0.9-7.0[facility] HospitalErythrocyte distribution width Auto (RBC) [Ratio]on 25-75-2258Wyddlzfnnbu distribution width (RBC) [Ratio]Erythrocyte distribution width [Ratio] by Automated count11.0-15.0 [facility] HospitalEstimated glomerular filtration rate (GFR) non- Americanon 49-53-5313MYL/1.73 sq M.predicted among non-blacks MDRD (S/P/Bld) [Vol rate/Area]Estimated glomerular filtration rate (GFR) non- AmericanLow>=60 mL/min/1.73m 2FDiley Ridge Medical CenterGlobulin Calc (S) [Mass/Vol]on 51-13-3694Ndnwwnmu (S) [Mass/Vol]Serum globulin measurement by calculation (mass/volume)[facility] HospitalGlucose mean value [Mass/volume] in Blood Estimated from glycated hemoglobinon 03-55-3246Qkhwvki glucose Estimated from glycated hemoglobin (Bld) [Mass/Vol]Glucose mean value [Mass/volume] in Blood Estimated from glycated hemoglobinEast Ohio Regional HospitalHematocrit Auto (Bld) [Volume fraction]on 47-70-2521Okiogycyzf (Bld) [Volume fraction]Hematocrit [Volume Fraction] of Blood by Automated count 36.0-48.0[facility] HospitalHemoglobin [Mass/volume] in Bloodon 10-63-0850Mdukcehixy (Bld) [Mass/Vol]Hemoglobin [Mass/volume] in Blood12.0-16.0 [facility] HospitalLaboratory - Chemistry and Chemistry - challengeon 43-42-1605Dfzdwgm [Mass/Vol]3.8 g/dL3.4-5.0[facility] HospitalALP [Catalytic activity/Vol]136 U/JJiah56-425IxgdfkwuiEast Ohio Regional HospitalALT [Catalytic activity/Vol]27 U/G42-89WgfrvbtvhEast Ohio Regional HospitalAST [Catalytic activity/Vol]19 U/H14-74YfimseludEast [facility] Hospital Bilirubin [Mass/Vol]0.8 mg/dL0.2-1.0[facility] HospitalCalcium [Mass/Vol]9.6 mg/dL8.5-10.1FDiley Ridge Medical CenterChloride [Moles/Vol] 107 mmol/E49-897UinuencyzEast Ohio Regional HospitalCO2 [Moles/Vol]32.0 mmol/L 21.0-32.0[facility] HospitalCreatinine [Mass/Vol]1.07 mg/dLHigh 0.55-1.02[facility] HospitalGFR/1.73 sq M.predicted MDRD (S/P/Bld) [Vol rate/Area]mL/min/{1.73_m2}>=60 mL/min/1.73m 2FDiley Ridge Medical CenterGlucose [Mass/Vol]129 mg/bBQbss37-470PtvcghfumEast [facility] Hospital Potassium [Moles/Vol]3.4 mmol/LLow3.5-5.1FDiley Ridge Medical Center Protein [Mass/Vol]7.8 g/dL6.4-8.2FProtestant Hospitalodium [Moles/Vol]145 mmol/J842-586WhxnldhxaEast Ohio Regional HospitalTSH Qn2.270 m[IU]/L 0.358-3.740[facility] HospitalUrea nitrogen [Mass/Vol]10.0 mg/dL 7.0-18.0[facility] HospitalUrea nitrogen/Creatinine [Mass ratio] 9.3 mg/mgEast Ohio Regional HospitalLaboratory - Hematology and Cell countson 83-72-4313IxJ1v (Bld) [Mass fraction]6.3 %High4.5-6.2FDiley Ridge Medical CenterComment on above:ADA RECOMMENDED LIMIT 4.0 - 6.0ADA THERAPEUTIC TARGET < 7.0ACTION SUGGESTED> 7.0Immature granulocytes/100 WBC (Bld)0.2 %0.0-0.5 [facility] HospitalLeukocytes [#/volume] corrected for nucleated erythrocytes in Blood by Automated counon 09-85-7803ZQX corrected for nucl RBC Auto (Bld) [#/Vol]Leukocytes [#/volume] corrected for nucleated erythrocytes in Blood by Automated coun4.0-11.0[facility] HospitalLymphocytes Auto (Bld) [#/Vol]on 88-04-1357Vanplufghka (Bld) [#/Vol]Lymphocytes [#/volume] in Blood by Automated count1.2-3.8[facility] HospitalLymphocytes/100 WBC Auto (Bld)on 38-63-5309Elcrqcqatgj/100 WBC (Bld)Lymphocytes/100 leukocytes in Blood by Automated count20.5-60.0[facility] HospitalH Auto (RBC) [Entitic mass]on 58-62-9807FYK (RBC) [Entitic mass]MCH [Entitic mass] by Automated count26.7-34.0[facility] HospitalHC Auto (RBC) [Mass/Vol]on 63-26-1552TKCU (RBC) [Mass/Vol]MCHC [Mass/volume] by Automated count29.9-35.2FDiley Ridge Medical CenterMCV Auto (RBC) [Entitic vol]on 94-37-8175GOR (RBC) [Entitic vol]MCV [Entitic volume] by Automated count 81.0-99.0[facility] HospitalMicroalbumin [Mass/volume] in Urineon 47-88-9441Uxghcam DL <= 20 mg/L (U) [Mass/Vol]Microalbumin [Mass/volume] in Urine<=30.0[facility] HospitalMonocytes Auto (Bld) [#/Vol]on 29-88-6539Xfbbdsiwz (Bld) [#/Vol]Automated blood monocyte count0.3-0.8[facility] HospitalMonocytes/100 WBC Auto (Bld)on 99-14-1350Wyfwofbhi/100 WBC (Bld)Automated monocyte %1.7-12.0[facility] Neutrophils Auto (Bld) [#/Vol]on 36-24-9046Vnxmvewfxub (Bld) [#/Vol]Neutrophils [#/volume] in Blood by Automated count1.4-6.5FDiley Ridge Medical Center Neutrophils/100 WBC Auto (Bld)on 99-47-0398Ruceicocmfh/100 WBC (Bld)Automated neutrophil %43.0-75.0[facility] HospitalNo Panel Informationon 67-23-6981Ddlzshyqyyq # (Auto)0.2 10 3/uL0.0-0.7FDiley Ridge Medical CenterImmature Granulocyte # (Auto)0.01 10 3/uL0.00-0.03[facility] HospitalUrine Random Wwimvkxoaq894.77 mg/fEXhpv73.00-300.00[facility] HospitalPlatelet mean volume Auto (Bld) [Entitic vol]on 41-49-1721Oypvzaid mean volume (Bld) [Entitic vol]Platelet mean volume [Entitic volume] in Blood by Automated countLow9.5-13.5FDiley Ridge Medical Center Platelets Auto (Bld) [#/Vol]on 73-73-9881Zskrhdmif (Bld) [#/Vol]Platelets [#/volume] in Blood by Automated rrisl741-714ZbtqiktdoEast [facility] Regional Hospital RBC Auto (Bld) [#/Vol]on 29-23-3295NFF (Bld) [#/Vol]Erythrocytes [#/volume] in Blood by Automated count4.20-5.40Providence Hospitalerum or plasma albumin/globulin mass ratioon 69-43-3498Ajzeklc/Globulin [Mass ratio] Serum or plasma albumin/globulin mass ratioEast [facility] Regional Hospital Serum or plasma anion gap determinationon 01-61-5628Udqfr gap [Moles/Vol]Serum or plasma anion gap determinationEast Ohio Regional HospitalUrine microalbumin/creatinine mass ratioon 92-35-3943Ddsjrvr/Creatinine DL <= 20 mg/L (U) [Mass ratio]Urine microalbumin/creatinine mass ratio0.0-29.9[facility] HospitalComment on above:NO MICROALBUMINURIA 0-29 MG/GCLINICAL MICROALBUMINURIA 30-300 MG/GMACROALBUMINURIA >300 MG/GNo Panel Information Ordered By: Michelle Ross on 04-58-6312ROUHX Antigen (POC)[facility] HospitalQuick Strep (POC)[facility] HospitalBasophils Auto (Bld) [#/Vol]on 53-08-9769Thkueowry (Bld) [#/Vol]0.0 10 3/uL0.0-0.1FDiley Ridge Medical CenterBasophils/100 WBC Auto (Bld)on 83-38-8552Tegumbycq/100 WBC (Bld)0.6 %0.2-2.0[facility] HospitalCholesterol in LDL Calc [Mass/Vol]on 08-87-9770Sghytpjxodp in LDL [Mass/Vol]65.8 mg/dLEast Ohio Regional HospitalComment on above:<100 mg/dl KOAKBQP873-751 mg/dl NEAR OR ABOVE LUDLVVR214-667 mg/dl BORDERLINE YNBX310-729 mg/dl HIGH>190 mg/dl VERY HIGH Cholesterol in VLDL Calc [Mass/Vol]on 77-99-2954Fsistqwxsbz in VLDL [Mass/Vol] 26.2 mg/dLEast Ohio Regional HospitalEosinophils/100 WBC Auto (Bld)on 69-92-1388Eidkohgnxop/100 WBC (Bld)3.5 %0.9-7.0[facility] Erythrocyte distribution width Auto (RBC) [Ratio]on 10-42-2882Oevwgxlcyzd distribution width (RBC) [Ratio]13.5 %11.0-15.0[facility] Estimated glomerular filtration rate (GFR) non- Americanon 08-31-2023 GFR/1.73 sq M.predicted among non-blacks MDRD (S/P/Bld) [Vol rate/Area] mL/min/{1.73_m2}>=60[facility] HospitalGlobulin Calc (S) [Mass/Vol]on 38-88-5805Uaftxikn (S) [Mass/Vol]3.7 g/dLEast Ohio Regional HospitalHematocrit Auto (Bld) [Volume fraction]on 75-32-1766Wblhffynuq (Bld) [Volume fraction]42.2 %36.0-48.0[facility] HospitalHemoglobin [Mass/volume] in Bloodon 28-28-3307Zrnrcgkrtr (Bld) [Mass/Vol]13.6 g/dL12.0-16.0 [facility] HospitalLaboratory - Chemistry and Chemistry - challengeon 61-63-0136Damyuor [Mass/Vol]3.4 g/dL3.4-5.0[facility] HospitalALP [Catalytic activity/Vol]120 U/KNaqa00-259IydvnnbabEast Ohio Regional HospitalALT [Catalytic activity/Vol]28 U/L96-93JghahqwafEast [facility] Regional HospitalAST [Catalytic activity/Vol]18 U/O26-16QtmovdxksEast [facility] Hospital Bilirubin [Mass/Vol]0.4 mg/dL0.2-1.0[facility] HospitalCalcium [Mass/Vol]9.0 mg/dL8.5-10.1FDiley Ridge Medical CenterChloride [Moles/Vol] 108 mmol/IAjfw10-958MkxhytslqEast Ohio Regional HospitalCholesterol [Mass/Vol]135 mg/dL<=200[facility] HospitalCholesterol in HDL [Mass/Vol]43 mg/dL 40-60[facility] HospitalComment on above:> or =60 mg/dl - LOW CARDIOVASCULAR RISK<40 mg/dl - HIGH CARDIOVASCULAR RISKCO2 [Moles/Vol]28.5 mmol/L21.0-32.0[facility] HospitalCreatinine [Mass/Vol]0.85 mg/dL 0.55-1.02[facility] HospitalGFR/1.73 sq M.predicted MDRD (S/P/Bld) [Vol rate/Area]mL/min/{1.73_m2}>=60[facility] HospitalGlucose [Mass/Vol]125 mg/pBZfck25-529KckqmyrysEast [facility] Regional HospitalPotassium [Moles/Vol]3.8 mmol/L3.5-5.1FDiley Ridge Medical CenterProtein [Mass/Vol] 7.1 g/dL6.4-8.2FProtestant Hospitalodium [Moles/Vol]143 mmol/L 136-145[facility] HospitalTriglyceride [Mass/Vol]131 mg/dL<=150 [facility] HospitalTSH Qn1.947 m[IU]/L0.358-3.740Firelands Regional Medical CenterUrea nitrogen [Mass/Vol]10.0 mg/dL7.0-18.0[facility] HospitalUrea nitrogen/Creatinine [Mass ratio]11.8 mg/mgEast [facility] Regional HospitalLaboratory - Hematology and Cell countson 08-31-2023 Immature granulocytes/100 WBC (Bld)0.2 %0.0-0.5FDiley Ridge Medical Center Leukocytes [#/volume] corrected for nucleated erythrocytes in Blood by Automated counon 21-46-3015MLP corrected for nucl RBC Auto (Bld) [#/Vol]5.1 10 3/uL 4.0-11.0[facility] HospitalLymphocytes Auto (Bld) [#/Vol]on 72-07-7287Kngdbdzbddl (Bld) [#/Vol]1.4 10 3/uL1.2-3.8[facility] HospitalLymphocytes/100 WBC Auto (Bld)on 00-89-9901Jdrpmwssydi/100 WBC (Bld)26.3 % 20.5-60.0[facility] HospitalH Auto (RBC) [Entitic mass]on 64-32-0226TVL (RBC) [Entitic mass]29.1 pg26.7-34.0[facility] HospitalMCHC Auto (RBC) [Mass/Vol]on 98-69-0127LRDZ (RBC) [Mass/Vol]32.2 g/dL 29.9-35.2FDiley Ridge Medical CenterMCV Auto (RBC) [Entitic vol]on 15-66-8833HFO (RBC) [Entitic vol]90.2 fL81.0-99.0[facility] HospitalMonocytes Auto (Bld) [#/Vol]on 84-24-9711Zrebnhzeb (Bld) [#/Vol]0.5 10 3/uL0.3-0.8[facility] HospitalMonocytes/100 WBC Auto (Bld)on 15-10-6992Zihpemqrp/100 WBC (Bld)9.9 %1.7-12.0[facility] Neutrophils Auto (Bld) [#/Vol]on 07-21-6873Kkizkcmfcjb (Bld) [#/Vol]3.1 10 3/uL 1.4-6.5FDiley Ridge Medical CenterNeutrophils/100 WBC Auto (Bld)on 51-99-0719Ewfxemxjbky/100 WBC (Bld)59.5 %43.0-75.0[facility] HospitalNo Panel Informationon 52-80-0347Drxnkxatojm # (Auto)0.2 10 3/uL0.0-0.7 [facility] HospitalImmature Granulocyte # (Auto)0.01 10 3/uL 0.00-0.03[facility] HospitalPlatelet mean volume Auto (Bld) [Entitic vol]on 90-18-9639Xtzufppl mean volume (Bld) [Entitic vol]9.1 fLLow 9.5-13.5FDiley Ridge Medical CenterPlatelets Auto (Bld) [#/Vol]on 61-90-4710Ctwxmweyu (Bld) [#/Vol]270 10 3/jQ438-151ExobzbhxeEast Ohio Regional HospitalRBC Auto (Bld) [#/Vol]on 40-12-0094MHO (Bld) [#/Vol]4.68 10 6/uL4.20-5.40 [facility] Hospitalerum or plasma albumin/globulin mass ratioon 76-85-0012Jsfatjh/Globulin [Mass ratio]0.9 {ratio}Providence Hospitalerum or plasma anion gap determinationon 66-66-6012Klsmx gap [Moles/Vol] 10.3 mmol/LFProtestant Hospitalerum or plasma total cholesterol/high density lipoprotein (HDL) cholesterol mass michele 08-31-2023 Cholesterol.total/Cholesterol in HDL [Mass ratio]3.1 {ratio}[facility] HospitalComment on above:3.3 - 4.4 LOW RISK4.4 - 7.1 AVERAGE RISK7.1 - 11.0 MODERATE RISK>11.0 HIGH RISKXR HAND LT MIN 3Von 01-32-6116SK HAND LT MIN 3V EXAM: XR HAND [...] authenticated by: MARIA L CURTIS Date: 2022-04-28 19:01McKitrick HospitalCHEMISTRYOrdered By: SYSTEM SYSTEM on 32-34-4722Ugynz gap [Moles/Vol]9 mmol/LNormal6 - 16 mEq/LFTMC RemisolCalcium [Mass/Vol]9.2 mg/dL Normal8.9 - 11.1 mg/dLFTMC RemisolChloride [Moles/Vol]105 mmol/RNwqmne337 - 111 mmol/LFTMC RemisolCO2 [Moles/Vol]28 mmol/SQvnsnh50 - 31 mmol/LFTMC Remisol Creatinine [Mass/Vol]0.9 mg/dLNormal0.5 - 1.3 mg/dLFTMC RemisolGFR/1.73 sq M.predicted among blacks MDRD (S/P/Bld) [Vol rate/Area]mL/min/1.73 b9Gvatpb >=59mL/min/1.73 m2FT Chem SGFR/1.73 sq M.predicted among non-blacks MDRD (S/P/Bld) [Vol rate/Area]mL/min/1.73 b1Ozqyvt>=59mL/min/1.73 m2FT Chem S Glucose [Mass/Vol]112 mg/uTLqwfas00 - 199 mg/dLFTMC RemisolPotassium [Moles/Vol] 3.3 mmol/LLow3.5 - 5.3 mmol/LFTMC RemisolSodium [Moles/Vol]139 mmol/NPkiyhz174 - 145 mmol/LFTMC RemisolUrea nitrogen [Mass/Vol]14 mg/dLNormal5 - 21 mg/dLFTMC RemisolUrea nitrogen/Creatinine [Mass ratio]16 mg/axYewyfw41 - 20FT[facility] Remisol HEMATOLOGYOrdered By: [employer] SYSTEM on 57-54-6608Abrkpteku/100 WBC (Bld)0.4 % Normal0.0 - 2.0 %[facility] HemeAutoSSBasophils/Leukocytes Auto (Bld) [Pure # fraction]0.0 E9/LNormal0.0 - 0.2 E9/LFTMC HemeAutoSSEosinophils/100 WBC (Bld)2.6 %Normal0.0 - 8.0 %[facility] HemeAutoSSEosinophils/Leukocytes Auto (Bld) [Pure # fraction]0.2 E9/LNormal0.0 - 0.5 E9/LFTMC HemeAutoSSLymphocytes/100 WBC (Bld) 26.6 %Relurw17.0 - 50.0 %[facility] HemeAutoSSLymphocytes/Leukocytes Auto (Bld) [Pure # fraction]1.8 E9/LNormal1.0 - 4.0 E9/LFTMC HemeAutoSSMonocytes/100 WBC (Bld)9.0 %Normal4.0 - 14.0 %[facility] HemeAutoSSMonocytes/Leukocytes Auto (Bld) [Pure # fraction]0.6 E9/LNormal0.2 - 1.0 E9/LFTMC HemeAutoSSNeutrophils/100 WBC (Bld) 61.4 %Wzjzmj82.0 - 75.0 %[facility] HemeAutoSSNeutrophils/Leukocytes Auto (Bld) [Pure # fraction]4.1 E9/LNormal2.0 - 7.5 E9/LFTMC HemeAutoSSHEMATOLOGYOrdered By: Alee De La Rosa on 29-03-8220Lbxbvdmuxgp distribution width (RBC) [Ratio]14.1 % Nptxfz46.9 - 14.2 %[facility] HemeAutoSSHematocrit (Bld) [Volume fraction]42.5 %Normal 34.0 - 46.0 %[facility] HemeAutoSSHemoglobin (Bld) [Mass/Vol]14.5 g/fXVgobln87.0 - 16.0 gm/dLFTMC HemeAutoSSMCH (RBC) [Entitic mass]29.6 xqAddacu15.0 - 34.0 [facility] HemeAutoSSMCHC (RBC) [Mass/Vol]34.2 g/cJUhwihd35.4 - 36.0 gm/dLFT HemeAutoSS MCV (RBC) [Entitic vol]86.7 mOZxtupl18.0 - 100.0 fLSTROUD REGION[facility] HemeAutoSSPlatelet mean volume (Bld) [Entitic vol]7.3 fLNormal6.4 - 10.8 fLSTROUD REGIONAL MEDICAL [facility] HemeAutoSSPlatelets (Bld) [#/Vol]316.0 E9/VOapkve492.0 - 500.0 E9/LFTMC HemeAutoSSRBC (Bld) [#/Vol] 4.9 E12/LNormal4.3 - 5.9 E12/LFTMC HemeAutoSSWBC corrected for nucl RBC Auto (Bld) [#/Vol]6.7 E9/LNormal4.0 - 11.0 E9/LFTMC HemeAutoSSNM STRESS ONLY SINGLEon 10-24-7460LT STRESS ONLY SINGLEPatient: ALEXA CAREY Exam Date: 04/01/2022 : 1970 Gender:F Ordering : DR DARIUSZ KEEN . Admission #: [id number] Family : Order #: [id number] CLICK HERE TO VIEW EXAM RADIOLOGY REPORT [...] by: Laith Cárdenas M.D. on 04/07/2022 at 11:46NormalThBucyrus Community Hospital AUTO DIFFon 58-74-5156GNDU #0.0 103/ulNormal0.0-0.1The [facility] HospitalComment on above:Performed By: #### CBC #### [facility] [address] [address] [address] Therese KaiserBasophils/100 WBC (Bld)0.4 %Normal0.2-2.0[facility] Comment on above:Performed By: #### CBC #### [facility] [address] [place] [address] Dr. Therese Amin #0.2 103/ulNormal0.0-0.7The [facility] HospitalComment on above: Performed By: #### CBC #### [facility] [address] [address] [address] Therese Bynumosinophils/100 WBC (Bld)3.4 %Normal0.9-7.0[facility] Comment on above:Performed By: #### CBC #### [facility] [address] [address] [address] Therese Bynumrythrocyte distribution width (RBC) [Ratio]13.2 %Gvzvun63.0-15.0 The [facility] HospitalComment on above:Performed By: #### CBC #### [facility] [address] [place] [address] Dr. Therese KaiserHematocrit (Bld) [Volume fraction]43.0 %Qseaar65.0-48.0[facility] Medical CenterComment on above:Performed By: #### CBC #### [facility] [address] [place] [address] Dr. Therese KaiserHemoglobin (Bld) [Mass/Vol]13.9 g/pVVtdmjh83.0-16.0The [facility] HospitalComment on above:Performed By: #### CBC #### [facility] [address] [place] [address] Dr. Therese Lyon #0.01 10e3/ulNormal0.00-0.03The [facility] HospitalComment on above:Performed By: #### CBC #### [facility] [address] [place] [address] Dr. Therese Lyon %0.2 %Normal0.0-0.5The [facility] HospitalComment on above: Performed By: #### CBC #### [facility] [address] [place] [address] Dr. Therese Dale #1.6 103/ulNormal1.2-3.8The [facility] HospitalComment on above:Performed By: #### CBC #### [facility] [address] [place] [address] Dr. Therese Cisneroshocytes/100 WBC (Bld)31.9 %Vijqyc31.5-60.0The [facility] HospitalComment on above:Performed By: #### CBC #### [facility] [address] [place] [address] Dr. Therese Joshua DIFF REQNONormalThe [facility] HospitalComment on above: Performed By: #### CBC #### [facility] [address] [place] [address] Dr. Therese Hampton (RBC) [Entitic mass]28.5 zhAdvmkm36.7-34.0The [facility] HospitalComment on above:Performed By: #### CBC #### [facility] [address] [place] [address] Dr. Therese Hampton (RBC) [Mass/Vol]32.3 g/cNLifyfb57.9-35.2The [facility] HospitalComment on above:Performed By: #### CBC #### [facility] [address] [place] [address] Dr. Therese Hampton (RBC) [Entitic vol]88.3 hGPqcadf45.0-99.0The [facility] HospitalComment on above:Performed By: #### CBC #### [facility] [address] [place] [address] Dr. Therese Restrepo #0.5 103/ulNormal0.3-0.8The [facility] HospitalComment on above:Performed By: #### CBC #### [facility] [address] [place] [address] Dr. Therese Noblesocytes/100 WBC (Bld)10.3 %Normal1.7-12.0[facility] Comment on above:Performed By: #### CBC #### [facility] [address] [place] [address] Dr. Therese Nash #2.7 103/ulNormal1.4-6.5The [facility] HospitalComment on above:Performed By: #### CBC #### [facility] [address] [place] [address] Dr. Therese Fultonutrophils/100 WBC (Bld)53.8 %Veamch14.0-75.0The [facility] HospitalComment on above:Performed By: #### CBC #### [facility] [address] [place] [address] Dr. Therese Elmore mean volume (Bld) [Entitic vol]8.9 fLCritically low 9.5-13.5The [facility] HospitalComment on above:Performed By: #### CBC #### [facility] [address] [place] [address] Dr. Therese HusseinT295 103/rkYlgxas980-309Mwg [facility] HospitalComment on above: Performed By: #### CBC #### [facility] [address] [place] [address] Dr. Therese AlfaroC4.87 106/ulNormal4.20-5.40The [facility] HospitalComment on above:Performed By: #### CBC #### [facility] [address] [place] [address] Dr. Therese KaiserWBC5.0 103/ulNormal4.0-11.0The [facility] HospitalComment on above: Performed By: #### CBC #### [facility] [address] [place] [address] Dr. Therese BoswellIMEon 39-04-6362CKA Coag (PPP) [Relative time]0.95 {INR} NormalChillicothe Va Medical CenterCommclaren bay region on above:Performed By: #### PT, PTT #### [facility] [address] [place] [address] Dr. Therese Peter GUIDELINESSEE BELOWMcKitrick HospitalComment on above:Result Comment: DESIRED INR: 2.0 - 3.0 CONDITIONS NOT LISTED BELOW 2.5 - 3.5 FOR PROSTHETIC HEART VALVE REPLACEMENT 2.5 - 3.5 RECURRENT THROMBOSIS Performed By: #### PT, PTT #### [facility] [address] [place] [address] Dr. Therese KaiserPT Coag (PPP) [Time]10.3 sNormal9.0-11.6ThMetroHealth Parma Medical Center Comment on above:Performed By: #### PT, PTT #### [facility] [address] [place] [address] Dr. Therese Bashir [id number] Coag (Bld) [Time]27.6 oVryiqr87.3-36.2[facility] CenterComment on above:Performed By: #### PT, PTT #### [facility] [address] [place] [address] Dr. Therese KaiserGLYCOHEMOGLOBIN A1Con [id number] RECOMMENDATIONSEE BELOWCincinnati Va Medical CenterCommclaren bay region on above:Result Comment: ADA RECOMMENDED LIMIT 4.0 - 6.0 ADA THERAPEUTIC TARGET < 7.0 ACTION SUGGESTED > 7.0Performed By: #### A1C ####[facility]cy[address] [place], [place] [address]Dr. Therese KaiserGlucose [Mass/Vol]128 mg/dLMcKitrick HospitalCommclaren bay region on above:Performed By: #### A1C ####[facility] D[address] [place], [place] [address]Dr.Yilan KaiserHbA1c (Bld) [Mass fraction]6.1 %Normal 4.5-6.2The [facility] HospitalComment on above:Performed By: #### A1C ####[facility] [address] [address]Dr.Yilan SosaC AUTO DIFFon 13-68-8331PXFJ #0.0 103/ulNormal0.0-0.1The [facility] HospitalComment on above:Performed By: #### CBC #### [facility] [address] [address] [address] Therese KaiserBasophils/100 WBC (Bld)0.5 %Normal0.2-2.0The [facility] Comment on above:Performed By: #### CBC #### [facility] [address] [address] [address] Saleh ChangEO #0.2 103/ulNormal0.0-0.7The [facility] HospitalComment on above: Performed By: #### CBC #### [facility] [address] [address] [address] Therese Bynumosinophils/100 WBC (Bld)2.7 %Normal0.9-7.0The [facility] Comment on above:Performed By: #### CBC #### [facility] [address] [address] [address] Therese Bynumrythrocyte distribution width (RBC) [Ratio]14.1 %Csqbya14.0-15.0 The [facility] HospitalComment on above:Performed By: #### CBC #### [facility] [address] [address] [address] Therese KaiserHematocrit (Bld) [Volume fraction]43.3 %Jjntwy97.0-48.0The [facility] HospitalComment on above:Performed By: #### CBC #### [facility] [address] [address] [address] Therese KaiserHemoglobin (Bld) [Mass/Vol]14.0 g/zRTtgnic37.0-16.0The [facility] on above:Performed By: #### CBC #### [facility] [address] [address] [address] Therese Lyon #0.02 10e3/ulNormal0.00-0.03The [facility] on above:Performed By: #### CBC #### [facility] [address] [place] [address] Dr. Therese Lyon %0.3 %Normal0.0-0.5The [facility] on above: Performed By: #### CBC #### [facility] [address] [place] [address] Dr. Therese Dale #1.8 103/ulNormal1.2-3.8The [facility] on above:Performed By: #### CBC #### [facility] [address] [place] [address] Dr. Therese Cisneroshocytes/100 WBC (Bld)27.6 %Nddtyn54.5-60.0The [facility] on above:Performed By: #### CBC #### [facility] [address] [place] [address] Dr. Therese GaviriaUAL DIFF REQNONormalThe [facility] on above: Performed By: #### CBC #### [facility] [address] [place] [address] Dr. Therese Hampton (RBC) [Entitic mass]28.7 oyXpgzrs85.7-34.0The [facility] on above:Performed By: #### CBC #### [facility] [address] [place] [address] Dr. Therese Hampton (RBC) [Mass/Vol]32.3 g/sEDylwmf57.9-35.2The [facility] on above:Performed By: #### CBC #### [facility] [address] [place] [address] Dr. Therese Hampton (RBC) [Entitic vol]88.7 qUYbsyfe56.0-99.0The [facility] HospitalComment on above:Performed By: #### CBC #### [facility] [address] [address] [address] Therese Restrepo #0.5 103/ulNormal0.3-0.8The [facility] HospitalComment on above:Performed By: #### CBC #### [facility] [address] [address] [address] Therese Noblesocytes/100 WBC (Bld)7.9 %Normal1.7-12.0The [facility] Comment on above:Performed By: #### CBC #### [facility] [address] [place] [address] Dr. Therese Nash #3.9 103/ulNormal1.4-6.5The [facility] HospitalComment on above:Performed By: #### CBC #### [facility] [address] [place] [address] Dr. Therese Fultonutrophils/100 WBC (Bld)61.0 %Qqoorz65.0-75.0The [facility] HospitalComment on above:Performed By: #### CBC #### [facility] [address] [place] [address] Dr. Therese Elmore mean volume (Bld) [Entitic vol]8.9 fLCritically low 9.5-13.5The [facility] HospitalComment on above:Performed By: #### CBC #### [facility] [address] [place] [address] Dr. Therese KaiserPLT293 103/ziZnvtlf874-705Mif [facility] HospitalComment on above: Performed By: #### CBC #### [facility] [address] [place] [address] Dr. Therese KaiserRBC4.88 106/ulNormal4.20-5.40The [facility] HospitalComment on above:Performed By: #### CBC #### [facility] [address] [place] [address] Dr. Therese KaiserWBC6.3 103/ulNormal4.0-11.0The [facility] Rehabilitationment on above: Performed By: #### CBC #### [facility] [address] [address] [address] Therese BarrowID PROFILEon 83-23-6524PTGB-HDL RATIO NORMSRegency Hospital CompanyCommclaren bay region on above:Result Comment: 3.3 - 4.4 LOW RISK 4.4 - 7.1 AVERAGE RISK 7.1 - 11.0 MODERATE RISK >11.0 HIGH RISKPerformed By: #### LIPID, TSH, CMP #### [facility] [address] [address] [address] Therese KaiserCholesterol [Mass/Vol]148 mg/dLNormal<=200[facility] Comment on above:Performed By: #### LIPID, TSH, CMP #### [facility] [address] [address] [address] Therese KaiserCholesterol in HDL [Mass/Vol]38 mg/dLCritically ozi91-42DzlChillicothe Va Medical CenterComment on above:Performed By: #### LIPID, TSH, CMP #### [facility] [address] [address] [address] Therese KaiserCholesterol in LDL [Mass/Vol]70.8 mg/dLElyria Memorial Hospital on above:Performed By: #### LIPID, TSH, CMP #### [facility] [address] [address] [address] Therese Khouryestermary.total/Cholesterol in HDL [Mass ratio]3.9 {ratio} NormalChillicothe Va Medical CenterComment on above:Performed By: #### LIPID, TSH, CMP #### [facility] [address] [address] [address] Therese KaiserHDL NORMAL> or = 60 mg/dl - LOW CARDIOVASCULAR RISK <40 mg/dl - HIGH CARDIOVASCULAR RISKMcKitrick HospitalCommclaren bay region on above:Performed By: #### LIPID, TSH, CMP #### [facility] [address] [address] [address] Therese KaiserLDL CALC NORMALSEE [facility] HospitalComment on above:Result Comment: <100 mg/dl OPTIMAL 100 - 129 mg/dl NEAR OR ABOVE OPTIMAL 130 - 159 mg/dl BORDERLINE HIGH 160 - 189 mg/dl HIGH >190 mg/dl VERY HIGH Performed By: #### LIPID, TSH, CMP #### [facility] [address] [address] [address] Therese KaiserTriglyceride [Mass/Vol]196 mg/dLCritically high<=150The [facility] HospitalComment on above:Performed By: #### LIPID, TSH, CMP #### [facility] [address] [address] [address] Therese KaiserVLDL CALC39.2 mg/dLNormalThe [facility] HospitalComment on above: Performed By: #### LIPID, TSH, CMP #### [facility] [address] [place] [address] Dr. Therese KaiserPROF 14(COMP METB)on 25-64-5795Esrfiph [Mass/Vol]3.8 g/dLNormal 3.4-5.0The [facility] HospitalComment on above:Performed By: #### LIPID, TSH, CMP #### [facility] [address] [address] [address] Therese KaiserAlbumin/Globulin [Mass ratio]1.1 {ratio}NormalThe [facility] HospitalComment on above:Performed By: #### LIPID, TSH, CMP #### [facility] [address] [place] [address] Dr. Therese Romero [Catalytic activity/Vol]97 U/AXxbjlz29-428Ydq [facility] HospitalComment on above:Performed By: #### LIPID, TSH, CMP #### [facility] [address] [address] [address] Therese Hernández [Catalytic activity/Vol]47 U/GQgcgvo07-39Sps [facility] HospitalComment on above:Performed By: #### LIPID, TSH, CMP #### [facility] [address] [address] [address] Therese Pandya gap [Moles/Vol]12.5 mmol/LNormalThe [facility] Comment on above:Performed By: #### LIPID, TSH, CMP #### [facility] [address] [place] [address] Dr. Therese KaiserAST [Catalytic activity/Vol]31 U/UBufasg52-72Klu [facility] HospitalComment on above:Performed By: #### LIPID, TSH, CMP #### [facility] [address] [place] [address] Dr. Therese KaiserBilirubin [Mass/Vol]0.4 mg/dLNormal0.2-1.0The [facility] Comment on above:Performed By: #### LIPID, TSH, CMP #### [facility] [address] [place] [address] Dr. Therese KaiserCalcium [Mass/Vol]9.2 mg/dLNormal8.5-10.1The [facility] Comment on above:Performed By: #### LIPID, TSH, CMP #### [facility] [address] [place] [address] Dr. Therese KaiserChloride [Moles/Vol]106 mmol/PGtsgbu88-209Dfi [facility] Comment on above:Performed By: #### LIPID, TSH, CMP #### [facility] [address] [place] [address] Dr. Therese KaiserCO2 [Moles/Vol]26.1 mmol/IRafzgf81.0-32.0[facility] Comment on above:Performed By: #### LIPID, TSH, CMP #### [facility] [address] [place] [address] Dr. Therese KaiserCreatinine [Mass/Vol]0.86 mg/dLNormal0.55-1.02The [facility] HospitalComment on above:Performed By: #### LIPID, TSH, CMP #### [facility] [address] [place] [address] Dr. Therese BynumGFR-AF HONDURAN>60Normal>=60The [facility] HospitalComment on above:Performed By: #### LIPID, TSH, CMP #### [facility] [address] [place] [address] Dr. Therese BynumGFR-NON AF HONDURAN>60Normal>=60The [facility] HospitalComment on above:Performed By: #### LIPID, TSH, CMP #### [facility] [address] [place] [address] Dr. Therese KaiserGlobulin (S) [Mass/Vol]3.6 g/dLNormChillicothe HospitalComment on above:Performed By: #### LIPID, TSH, CMP #### [facility] [address] [place] [address] Dr. Therese KaiserGlucose [Mass/Vol]125 mg/dLCritically bmlx03-020Laj [facility] HospitalComment on above:Performed By: #### LIPID, TSH, CMP #### [facility] [address] [place] [address] Dr. Therese KaiserPotassium [Moles/Vol]3.6 mmol/LNormal3.5-5.1The [facility] Comment on above:Performed By: #### LIPID, TSH, CMP #### [facility] [address] [place] [address] Dr. Therese KaiserProtein [Mass/Vol]7.4 g/dLNormal6.4-8.2The [facility] Comment on above:Performed By: #### LIPID, TSH, CMP #### [facility] [address] [place] [address] Dr. Therese KaiserSodium [Moles/Vol]141 mmol/INijmbd518-909Jwz [facility] Comment on above:Performed By: #### LIPID, TSH, CMP #### [facility] [address] [place] [address] Dr. Therese KaiserUrea nitrogen [Mass/Vol]12.0 mg/dLNormal7.0-18.0The [facility] HospitalComment on above:Performed By: #### LIPID, TSH, CMP #### [facility] [address] [place] [address] Dr. Therese KaiserUrea nitrogen/Creatinine [Mass ratio]14.0 mg/mgNoBlanchard Valley Health System Bluffton HospitalComment on above:Performed By: #### LIPID, TSH, CMP #### [facility] [address] [address] [address] Therese Martinez 87-86-5096PCX8.701 uIU/mLNormal0.358-3.740The [facility] HospitalComment on above:Performed By: #### LIPID, TSH, CMP #### [facility] [address] [address] [address] Therese BOURGEOIS [facility] HospitalComment on above: Result Comment: <0.34 UIU/ml HYPERTHYROID 0.34-5.60 UIU/ml EUTHYROID >5.60 UIU/ml HYPOTHYROIDPerformed By: #### LIPID, TSH, CMP #### [facility] [address] [place] [address] Dr. Therese KaiserVITAMIN D 25 OHon 97-63-8597OPU D 25-OH12.9 ng/mLNormalChillicothe Va Medical CenterCommclaren bay region on above:Performed By: #### VITAD #### [facility] [address] [place] [address] Dr. Therese IRELANDJenna [facility] HospitalComment on above: Result Comment: <20 ng/mL Vit D deficient 20 - <30 ng/mL Vit D insufficient 30 - 100 ng/mL Vit D sufficient >100 ng/mL Potential ToxicityPerformed By: #### VITAD #### [facility] [address] [place] [address] Dr. Therese Casas Visit (Cardiology)on 44-50-4188Pxtdht-up visit Diagnoses/Problems Assessed Chest pain (786.50) (R07.9) Mostly non-exertional Relieve with NTG Hypertension, essential, benign (401.1) (I10) Suboptimal + TIMMY, cant tolerate CPAP Hyperlipidemia (272.4) (E78.5) Moderate intensity statin Annual labs with PCP Normal echocardiogram (V72.85) September 2020 Echo LVEF 60% Premature, closure, foramen ovale (745.8) (Q21.8) Nov 2019 PFO Closure Amplatzer 25mm ACS (acute coronary syndrome) (411.1) (I24.9) [facility] September 2020 Class 2 obesity with body mass index (BMI) of 36.0 to 36.9 in adult (278.00,V85.36) (E66.9,Z68.36) Reviewed the merits of healthy lifestyle choices on overall cardiovascular health. Coronary artery disease involving orutsararmiut coronary artery of orutsararmiut heart without angina pectoris (414.01) (I25.10) September [...] contact the office if new symptoms arise. 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 on 25-48-1844Fxlc risk assessmentc) Not medically indicatedNavos Health FPSI 250 DO Work Phone: Tobacco use status CPHSb) NoMP-[facility] [employer] 250 DO Work Phone: Lon 12-27-2020 Specimen: [id number] Received: 12/27/20 Status: EMILIE Patterson Num: [id number] Spec Type: Surgical Subm Dr: Frank Felix Jr, DO Tissues: A Colon Biopsy (RANDOM COLON BX) Procedures: RAMY Stain/2, Gross/Micro L4 Patient Age/Sex Location Account Attending Physician Alexa Carey/F [id number] Frank Felix Jr, DO SPEC NUM: [id number] RECD: 12/27/20 STATUS: EMILIE PATTERSON NUM: [id number] HARSHAL: 12/27/20- [facility] DR: Frank Felix Jr, DO ENTERED: 12/27/20-5 [facility] DR: SPEC TYPE: Surgical DEPT: S [...] support the above pathologic diagnosis. CPT Codes 37444 Specimen: [id number] Received: 12/27/20 Status: EMILIE Patterson Num: [id number] Spec Type: Surgical Subm Dr: Frank Felix Jr, DO Tissues: A Colon Biopsy (RANDOM COLON BX) Procedures: HE Stain/2, Gross/Micro L4 Patient: Alexa Carey [id number] (Continued) Signed (signature on file) Yaniv May MD 12/30/20 1422[facility] HospitalCOVID-19 Antigenon 09-73-0181QEKUJ-19 AntigenHealthcare Worker?: Y Alessandro Reference Alessandro Reference [...] its performance Alessandro Disclaimer characteristic determined by [employer] and Alessandro Disclaimer validated at [facility]. This Alessandro Disclaimer test has not [...] is terminated or revoked sooner. PERFORMED BY: [facility] [address] [place] [address] PATHOLOGIST COPY TECHNICIAN SUKI LAZAR M.D.[facility] HospitalComment on above: Performed By: #### CARLITOSEG, COVID-19 ALESSANDRO #### [facility] [address] [place] [address] USASofia Ag Negativeon 62-14-1814Pwluw Ag NegativeNegative NormalNegativeEast Ohio Regional HospitalComment on above:Result Comment: This is a duplicate Alessandro SARS Antigen (JOANNA) result to be used for statistical tracking purpose only. PERFORMED BY: [facility] [address] [place] [address] PATHOLOGIST COPY TECHNICIAN SUKI LAZAR M.D.Performed By: #### CARLITOSEG, COVID-19 ALESSANDRO #### [facility] [address] [place] [address] USACNCOon 50-60-2769CMATKvprse TextNormalCLima Memorial Hospital METABOLIC PANELon 97-44-3566Ftcpecx [Mass/Vol]9.4 mg/dLNormal 8.6-10.3The [facility] HealthComment on above:Order Comment: No: Do not add to previous drawPerformed By: #### 44856, 34049 ####[facility] [place] [address], USAChloride [Moles/Vol]103 mmol/OYslkop17-525Qrp [facility] HealthComment on above:Order Comment: No: Do not add to previous drawPerformed By: #### 32156, 74788 ####[facility] [place] [address], USACO2 [Moles/Vol]31 mmol/XWiwqob85-51Lfv [facility] HealthComment on above:Order Comment: No: Do not add to previous drawPerformed By: #### 95483, 62205 ####[facility] [place] [address], USACreatinine [Mass/Vol]0.93 mg/dLNormal0.60-1.20The [facility] HealthComment on above:Order Comment: No: Do not add to previous drawPerformed By: #### 34409, 02296 ####[facility] [place] [address], USAGFR/1.73 sq M.predicted among blacks MDRD (S/P/Bld) [Vol rate/Area]mL/min/{1.73_m2}Normal>60The [facility] HealthComment on above:Order Comment: No: Do not add to previous drawPerformed By: #### 12129, 19225 ####[facility] [place] [address], USAGFR/1.73 sq M.predicted among non-blacks MDRD (S/P/Bld) [Vol rate/Area]mL/min/{1.73_m2}Normal>60The [facility] HealthComment on above:Order Comment: No: Do not add to previous drawPerformed By: #### 74888, 65155 ####[facility] [place] [address], USAGlucose [Mass/Vol]106 mg/yGWfki42-080Htu [facility] HealthComment on above:Order Comment: No: Do not add to previous drawPerformed By: #### 75228, 35021 ####[facility] [place] [address], [place] Potassium [Moles/Vol]3.8 mmol/LNormal3.5-5.1The [facility] HealthComment on above:Order Comment: No: Do not add to previous drawPerformed By: #### 62945, 47290 ####[facility] [place] [address], USASodium [Moles/Vol]140 mmol/KNshthk288-127Ggz [facility] HealthComment on above:Order Comment: No: Do not add to previous drawPerformed By: #### 09033, 97644 ####[facility] [place] [address], USAUrea nitrogen [Mass/Vol]13 mg/dL Normal7-25The [facility] HealthComment on above:Order Comment: No: Do not add to previous drawPerformed By: #### 89189, 28368 ####[facility] [place] [address], MEMORIAL MEDICAL CENTERCBC W/DIFFon 46-31-6523VUV IMM GRANS0.0 10*3/uLNormal0.0-0.2The [facility] HealthComment on above:Order Comment: No: Do not add to previous drawPerformed By: #### 70140, 28755, 74384 #### [facility] [address] [place] [address], USAABS NEUTROPHILS4.3 10*3/uLNormal1.6-7.6The [facility] HealthComment on above:Order Comment: No: Do not add to previous drawPerformed By: #### 64090, 14952, 32719 #### [facility] [address] [place] [address], USABasophils (Bld) [#/Vol]0.0 10*3/uLNormal0.0-0.2The [facility] HealthComment on above:Order Comment: No: Do not add to previous drawPerformed By: #### 03918, 14960, 08102 #### [facility] [address] [place] [address], USABasophils/100 WBC (Bld)0.4 %Normal0.0-1.0The [facility] HealthComment on above:Order Comment: No: Do not add to previous drawPerformed By: #### 93786, 53442, 36658 #### [facility] [address] [place] [address], USAEosinophils (Bld) [#/Vol]0.2 10*3/uLNormal0.0-0.5The [facility] HealthComment on above:Order Comment: No: Do not add to previous drawPerformed By: #### 82223, 81686, 38412 #### [facility] [address] [place] [address], USAEosinophils/100 WBC (Bld)2.7 %Normal0.0-6.0The [facility] HealthComment on above:Order Comment: No: Do not add to previous drawPerformed By: #### 66376, 07724, 65834 #### [facility] [address] [place] [address], USAErythrocyte distribution width (RBC) [Ratio]13.4 %Normal 11.5-15.0The [facility] HealthComment on above:Order Comment: No: Do not add to previous drawPerformed By: #### 66412, 62043, 56434 #### [facility] [address] [place] [address], USAHematocrit (Bld) [Volume fraction]38.8 %Qvxdvy82.0-45.0The [facility] HealthComment on above:Order Comment: No: Do not add to previous drawPerformed By: #### 58857, 26671, 33562 #### [facility] [address] [place] [address], USAHemoglobin (Bld) [Mass/Vol]12.7 g/uTUcxxhj65.0-15.0The [facility] HealthComment on above:Order Comment: No: Do not add to previous drawPerformed By: #### 23364, 56931, 31347 #### [facility] [address] [facility] [place] [address], USAIMMATURE GRANS0.4 %Normal0.0-1.0The [facility] HealthComment on above:Order Comment: No: Do not add to previous draw Performed By: #### 92280, 21278, 38038 #### [facility] [address] [place] [address], USALymphocytes (Bld) [#/Vol]1.7 10*3/uLNormal1.2-4.0The [facility] HealthComment on above:Order Comment: No: Do not add to previous drawPerformed By: #### 66202, 98304, 47119 #### [facility] [address] [place] [address], MEMORIAL MEDICAL CENTERLymphocytes/100 WBC (Bld)24.4 %Kwcdcu18.0-45.0The [facility] HealthComment on above:Order Comment: No: Do not add to previous drawPerformed By: #### 62303, 08743, 51567 #### [facility] [address] [place] [address], [facility]INDSAYH (RBC) [Entitic mass]29.8 maAggxoi49.0-33.0The [facility] HealthComment on above:Order Comment: No: Do not add to previous drawPerformed By: #### 63390, 71395, 51546 #### [facility] [address] [place] [address], [facility] LINDSAYHC (RBC) [Mass/Vol]32.7 g/nWLcysoq90.0-35.0The [facility] HealthComment on above:Order Comment: No: Do not add to previous drawPerformed By: #### 04990, 49167, 50119 #### [facility] [address] [place] [address], [facility] LINDSAYV (RBC) [Entitic vol]91.1 hMAosutv30.0-98.0The [facility] HealthComment on above:Order Comment: No: Do not add to previous drawPerformed By: #### 63464, 63539, 43787 #### [facility] [address] [place] [address], MEM[facility]IAL MEDICAL CENTERMonocytes (Bld) [#/Vol]0.7 10*3/uLNormal0.1-1.0The [facility] HealthComment on above:Order Comment: No: Do not add to previous drawPerformed By: #### 03072, 70597, 70119 #### [facility] [address] [place] [address], INASNAFZ23.1 %Normal5.0-12.0The [facility] HealthComment on above:Order Comment: No: Do not add to previous drawPerformed By: #### 70695, 11944, 48822 #### [facility] [address] [place] [address], USANeutrophils/100 WBC (Bld)62.0 %Kwkrbp42.0-72.0The [facility] HealthComment on above:Order Comment: No: Do not add to previous drawPerformed By: #### 15056, 06293, 60047 #### [facility] [address] [place] [address], USANucleated RBC/100 WBC (Bld) [Ratio]0 %Normal0-0The [facility] HealthComment on above:Order Comment: No: Do not add to previous drawPerformed By: #### 43794, 77073, 36000 #### [facility] [address] [place] [address], USAPLAT EOI472 10*3/pBDhnmjh613-757Mvi [facility] HealthComment on above:Order Comment: No: Do not add to previous draw Performed By: #### 89317, 48817, 52651 #### [facility] [address] [place] [address], USARBC (Bld) [#/Vol]4.26 10*6/uLNormal3.80-5.00The [facility] HealthComment on above:Order Comment: No: Do not add to previous drawPerformed By: #### 65380, 65403, 03157 #### [facility] [address] [place] [address], USAWBC (Bld) [#/Vol]7.00 10*3/uLNormal4.00-10.60The [facility] HealthComment on above:Order Comment: No: Do not add to previous drawPerformed By: #### 77737, 39083, 51364 #### [facility] [facility] [address] [place] [address], USALIPID PROFILEon [id number] [Mass/Vol]113 mg/dL Gki082-754Use UC HealthComment on above:Order Comment: No: Do not add to previous drawResult Comment: CHOLESTEROL REFERENCE RANGE: 20 YEARS AND OLDER CARDIOVASCULAR RISK Less than 200 mg/dl Low Risk 200 to 239 mg/dl Borderline Risk 240 mg/dl and greater High RiskPerformed By: #### 59288, 46394 ####[facility] [place] [address], USACholesterol in HDL [Mass/Vol]31 mg/oQQlgenf44-06Rld UC HealthComment on above:Order Comment: No: Do not add to previous drawResult Comment: Slight variation in normal range could be due to gender and/or age. HDL CHOLESTEROL REFERENCE RANGE: 20 years and older Cardiovascular Risk > or =60 mg/dL Desirable 40 TO 59 mg/dL Low Risk <40 mg/dL High RiskPerformed By: #### 54967, 06387 ####[facility] [place] [place] [address], USACholesterol in LDL [Mass/Vol]51 mg/dLNormal0-130The UC HealthComment on above:Order Comment: No: Do not add to previous drawResult Comment: LDL IS A CALCULATION LDL IS ONLY VALID IF THE TRIG IS LESS THAN 400.Performed By: #### 91777, 56497 ####[facility] [place] [address], [place] Cholesterol.total/Cholesterol in HDL [Mass ratio]3.6 {ratio}Normal0.0-4.5The UC HealthComment on above:Order Comment: No: Do not add to previous drawPerformed By: #### 34046, 39493 ####[facility] [place] [address], USANON-HDL EHOZCYQWBYE58 mg/dLNoAkron Children's HospitalComment on above:Order Comment: No: Do not add to previous drawPerformed By: #### 46469, 29752 ####[facility] [place] [address], [place] Triglyceride [Mass/Vol]154 mg/mLUmga11-186Feb UC HealthComment on above:Order Comment: No: Do not add to previous drawResult Comment: TRIGLYCERIDE REFERENCE RANGE: 20 YEARS AND OLDER CARDIOVASCULAR RISK LESS THAN 150 mg/dl LOW RISK 150 TO 199 mg/dl BORDERLINE RISK 200 mg/dl AND GREATER HIGH RISKPerformed By: #### 05940, 73259 ####[facility] [place] [address], [facility] CENTERVLDL CHOL31 mg/dL Normal0-40The UC HealthComment on above:Order Comment: No: Do not add to previous drawPerformed By: #### 64195, 98910 ####[facility] [place] [address], [facility] CENTERPOC GLUCOSE LAB on 62-72-8479Smhlbgb [Mass/Vol]159 mg/gTEjst51-440Dux UC HealthComment on above:Performed By: #### 52742, 93068, 12782 #### [facility] [address] [place] [address], USAGlucose [Mass/Vol]109 mg/jZXuxg47-080Vtr UC HealthComment on above:Performed By: #### 67892, 28121, 02350 #### [facility] [address] [place] [address], USAUFH HEPARIN ASSAYon 04-57-6507BIKCZEXIBSHZRT HEPARIN<0.10 Critically low0.30-0.70The UC HealthComment on above: Result Comment: Rivaroxaban and Apixaban will interfere with the anti Xa assay used to monitor UFH and LMWH. RESULTS CHECKED AND CALLED. ACCURATELY READ BACK BY Olga Saucedo RN at 0740Performed By: #### 88626 ####[facility] [place] [address], USAALDOSTERONE 69406qn 04-20-7684NWLNVGPPFTN4.2 ng/dLNoAkron Children's HospitalComment on above:Order Comment: No: Do not [...] reference intervals for this test in the [facility] Test Directory ([employer]). Performed By: [facility] [address] [place] [address] Pediatric Anesthesiologist: Adriana Cordoba MDMT. [facility] METABOLIC PANELon 09-16-2020 Calcium [Mass/Vol]9.1 mg/dLNormal8.6-10.3The [facility] Comment on above:Order Comment: No: Do not add to previous drawPerformed By: #### 20622, 22553, 74809 #### [facility] [address] [place] [address], USAChloride [Moles/Vol]105 mmol/AWcfnxj43-587Ulx UC HealthComment on above:Order Comment: No: Do not add to previous drawPerformed By: #### 61328, 05760, 57762 #### [facility] [address] [place] [address], USACO2 [Moles/Vol]28 mmol/LLxwtun77-17Iom UC HealthComment on above:Order Comment: No: Do not add to previous draw Performed By: #### 73871, 98380, 28522 #### [facility] [address] [place] [address], USACreatinine [Mass/Vol]0.79 mg/dLNormal0.60-1.20The UC HealthComment on above:Order Comment: No: Do not add to previous drawPerformed By: #### 72464, 57766, 60002 #### [facility] [address] [place] [address], USAGFR/1.73 sq M.predicted among blacks MDRD (S/P/Bld) [Vol rate/Area]mL/min/{1.73_m2}Normal>60The [facility] Comment on above:Order Comment: No: Do not add to previous drawPerformed By: #### 28750, 58633, 26624 #### [facility] [address] [place] [address], USAGFR/1.73 sq M.predicted among non-blacks MDRD (S/P/Bld) [Vol rate/Area]mL/min/{1.73_m2}Normal>60The [facility] Comment on above:Order Comment: No: Do not add to previous drawPerformed By: #### 42037, 11745, 83775 #### [facility] [address] [place] [address], USAGlucose [Mass/Vol]109 mg/rPDpgq65-456Lfd UC HealthComment on above:Order Comment: No: Do not add to previous drawPerformed By: #### 14610, 94900, 87730 #### [facility] [address] [place] [address], USAPotassium [Moles/Vol]3.7 mmol/LNormal3.5-5.1The UC HealthComment on above:Order Comment: No: Do not add to previous drawPerformed By: #### 49962, 71459, 75346 #### [facility] [address] [place] [address], USASodium [Moles/Vol]140 mmol/OCrblrf661-588Ylo UC HealthComment on above:Order Comment: No: Do not add to previous drawPerformed By: #### 65174, 69374, 89292 #### [facility] [address] [place] [address], USAUrea nitrogen [Mass/Vol]12 mg/dLNormal7-25The UC HealthComment on above:Order Comment: No: Do not add to previous drawPerformed By: #### 30581, 76129, 28385 #### [facility] [address] [place] [address], USACALCIUM IONIZED CBGLon 78-12-5473CMSBLMW CALCIUM1.16 mmol/L Normal1.12-1.30The UC HealthComment on above:Performed By: #### 45297, 66638, 47212 #### [facility] [address] [place] [address], USACBC W/DIFFon 54-32-2050HPT IMM GRANS0.0 10*3/uLNormal 0.0-0.2The UC HealthComment on above:Order Comment: No: Do not add to previous drawPerformed By: #### 66190, 11618, 05510 #### [facility] [address] [place] [place] [address], USAABS NEUTROPHILS4.4 10*3/uLNormal1.6-7.6The UC HealthComment on above:Order Comment: No: Do not add to previous drawPerformed By: #### 60336, 02348, 81738 #### [facility] [address] [place] [address], USABasophils (Bld) [#/Vol]0.0 10*3/uLNormal0.0-0.2The UC HealthComment on above:Order Comment: No: Do not add to previous drawPerformed By: #### 00605, 73627, 94481 #### [facility] [address] [place] [address], USABasophils/100 WBC (Bld)0.3 %Normal0.0-1.0The UC HealthComment on above:Order Comment: No: Do not add to previous drawPerformed By: #### 45083, 97433, 49338 #### [facility] [address] [facility] [place] [address], USAEosinophils (Bld) [#/Vol]0.2 10*3/uLNormal0.0-0.5The UC HealthComment on above:Order Comment: No: Do not add to previous drawPerformed By: #### 25157, 49023, 91416 #### [facility] [address] [facility] [place] [address], USAEosinophils/100 WBC (Bld)2.3 %Normal0.0-6.0The UC HealthComment on above:Order Comment: No: Do not add to previous drawPerformed By: #### 65039, 21097, 02785 #### [facility] [address] [place] [address], USAErythrocyte distribution width (RBC) [Ratio]13.2 %Normal 11.5-15.0The UC HealthComment on above:Order Comment: No: Do not add to previous drawPerformed By: #### 72035, 77074, 19376 #### [facility] [address] [place] [address], USAHematocrit (Bld) [Volume fraction]39.4 %Bfilaf80.0-45.0The UC HealthComment on above:Order Comment: No: Do not add to previous drawPerformed By: #### 10527, 33427, 11663 #### [facility] [address] [place] [address], USAHemoglobin (Bld) [Mass/Vol]12.8 g/dJQjpivx71.0-15.0The UC HealthComment on above:Order Comment: No: Do not add to previous drawPerformed By: #### 10372, 38334, 55875 #### [facility] [address] [place] [address], USAIMMATURE GRANS0.4 %Normal0.0-1.0The UC HealthComment on above:Order Comment: No: Do not add to previous draw Performed By: #### 06222, 18587, 65471 #### [facility] [address] [place] [address], USALymphocytes (Bld) [#/Vol]1.8 10*3/uLNormal1.2-4.0The UC HealthComment on above:Order Comment: No: Do not add to previous drawPerformed By: #### 88209, 80907, 70819 #### [facility] [address] [place] [address], USALymphocytes/100 WBC (Bld)25.8 %Gtpnzw93.0-45.0The UC HealthComment on above:Order Comment: No: Do not add to previous drawPerformed By: #### 56143, 53842, 96965 #### [facility] [address] [place] [address], [facility] CENTERMCH (RBC) [Entitic mass]29.8 rhXyilyg83.0-33.0The UC HealthComment on above:Order Comment: No: Do not add to previous drawPerformed By: #### 64408, 90072, 44817 #### [facility] [address] [place] [address], USAMCHC (RBC) [Mass/Vol]32.5 g/nYXlubpw97.0-35.0The UC HealthComment on above:Order Comment: No: Do not add to previous drawPerformed By: #### 07736, 51394, 02393 #### [facility] [address] [place] [address], USAMCV (RBC) [Entitic vol]91.8 xJNjcbwk71.0-98.0The UC HealthComment on above:Order Comment: No: Do not add to previous drawPerformed By: #### 90671, 33661, 09995 #### [facility] [address] [place] [address], USAMonocytes (Bld) [#/Vol]0.6 10*3/uLNormal0.1-1.0The UC HealthComment on above:Order Comment: No: Do not add to previous drawPerformed By: #### 42192, 31635, 19199 #### [facility] [address] [place] [address], USAMONOS8.7 %Normal5.0-12.0The UC HealthComment on above:Order Comment: No: Do not add to previous drawPerformed By: #### 45625, 10272, 13199 #### [facility] [address] [place] [address], USANeutrophils/100 WBC (Bld)62.5 %Otxsyu77.0-72.0The UC HealthComment on above:Order Comment: No: Do not add to previous drawPerformed By: #### 14990, 33728, 26502 #### [facility] [address] [place] [address], USANucleated RBC/100 WBC (Bld) [Ratio]0 %Normal0-0The UC HealthComment on above:Order Comment: No: Do not add to previous drawPerformed By: #### 81153, 39637, 38104 #### [facility] [address] [place] [address], USAPLAT YUZ319 10*3/aAYohdqv317-996Ovp UC HealthComment on above:Order Comment: No: Do not add to previous draw Performed By: #### 82696, 28237, 27561 #### [facility] [address] [place] [address], USARBC (Bld) [#/Vol]4.29 10*6/uLNormal3.80-5.00The UC HealthComment on above:Order Comment: No: Do not add to previous drawPerformed By: #### 84822, 16055, 93870 #### [facility] [address] [place] [address], USAWBC (Bld) [#/Vol]7.01 10*3/uLNormal4.00-10.60The UC HealthComment on above:Order Comment: No: Do not add to previous drawPerformed By: #### 25565, 18204, 69881 #### [facility] [address] [place] [address], USACardiovascular Lab Reporton [id number] Lab ReportUnACMC Healthcare System Glen[facility] Patient Name: [facility] Silvia Neumann MR #: [id number] Department of Physician: Omar Atkinson M.D. Division of Service Date: 09/16/2020 Cardiology Birthdate: 1970 Adult Cardiovascular Room #: 3AB 405131 [facility] [address] [place], [place] [address] Cardiovascular Laboratory Report FINAL IMPRESSIONS: 1. Moderate [...] the left radial artery was obtained. A 6-Andorran glide sheath was inserted without difficulty. 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 It is a wrap-around left anterior descending. [...] Vizcarra M.D. Date Trans: 09/16/2020 10:43 A/mmo DN_[id number] cc: Dariusz Keen M.D. [address] [place] [address] A [facility] [id number]-Hyde Memorial Hospital METANEPHRINES, PLASMA 57233tx [id number] METANEPH PLSee NoteMcCullough-Hyde Memorial HospitalComment on above:Order Comment: No: Do [...] developed and its performance characteristics determined by [facility]. It has not been cleared or approved by the [place] Food and Drug Administration. This test was performed in a CLIA certified laboratory and is intended for clinical purposes. Performed By: [facility] [address] [place] [address] Pediatric Anesthesiologist: Adriana Cordoba, MDMETANEPHRINE PLASMA0.13 nmol/LNormal 0.00-0.49The UC HealthComment on above:Order Comment: No: Do not add to previous drawNORMETANEPHRINE PLASMA0.37 nmol/LNormal0.00-0.89 The UC HealthComment on above:Order Comment: No: Do not add to previous drawPOC GLUCOSE LABon [id number] [Mass/Vol]125 mg/dL Wide54-497Dqe UC HealthComment on above:Performed By: #### 66150, 80120, 83277 #### [facility] [address] [place] [address], USAGlucose [Mass/Vol]147 mg/gYFvyz22-063Yyq UC HealthComment on above:Performed By: #### 18177, 38888, 52071 #### [facility] [address] [place] [address], USAGlucose [Mass/Vol]100 mg/mNKffkuv93-574Mlr UC HealthComment on above:Performed By: #### 59652, 17936, 42306 #### [facility] [address] [place] [address], USAGlucose [Mass/Vol]122 mg/iQNjxl38-406Dou UC HealthComment on above:Performed By: #### 41594, 44723, 13965 #### [facility] [address] [place] [address], USAPTH INTACTon 72-03-1393VWD RBJNUL50 pg/wVAtojfq92-93Rqu UC HealthComment on above:Order Comment: No: Do not add to previous drawPerformed By: #### 97896, 84473, 26582 #### [facility] [address] [place] [address], USARENIN ACTIVITY 66633an 92-68-6831NJGKT ACTIVITY0.7 ng/mL/hr NormalThe UC HealthComment on above:Order Comment: No: Do not add [...] developed and its performance characteristics determined by [facility]. It has not been cleared or approved by the [place] Food and Drug Administration. This test was performed in a CLIA certified laboratory and is intended for clinical purposes. Performed By: [facility] [address] [place] [address] Pediatric Anesthesiologist: Adriana Cordoba MDTSH3 WITH REFLEX FT4on [id number] 3RD GENERATION2.75 uIU/mLNormal0.34-5.60The [facility] Comment on above:Order Comment: No: Do not add to previous drawPerformed By: #### 97505, 65985, 05315 #### [facility] [address] [place] [address], [facility] CENTERUF HEPARIN ASSAYon 90-20-5502MATPNSJMUHSBEE HEPARIN0.34 IU/mLNormal0.30-0.70The UC HealthComment on above: Result Comment: Rivaroxaban and Apixaban will interfere with the anti Xa assay used to monitor UFH and LMWH.Performed By: #### 66428 ####[facility] [facility].[address]*SARS-CoV-2 COVID-19on 09-15-2020 SARS-CoV-2 (COVID-19) RNA RAJINDER+probe Ql (Unsp spec)Not detectedNormalNot Detected The UC HealthComment on above:Order Comment: The Aptima SARS-CoV-2 assay is a nucleic acid amplification test intended for the qualitative detection of RNA from SARS-CoV-2 isolated and purified from nasopharyngeal (FIRE SUPPORT SPECIALIST),oropharyngeal (OP), nasal swab, sputum, and bronchoalveolar lavage (BAL) specimens from patients with signs and symptoms of infection who are suspected of COVID-19. Results are for the identification of SARS-CoV-2 RNA. The SARS-CoV-2 RNA is generally detectable during the acute phase of infection. The Aptima SARS-CoV-2 Assay on the [employer] system is intended for use by laboratory personnel specifically instructed and trained in the operation of the [employer] system. The Aptima SARS-CoV-2 assay is [...] patient history, and epidemiological information.Performed By: #### 68612 #### [facility] [address] [place] [address], USABASIC METABOLIC PANELon [id number] [Mass/Vol]9.1 mg/dLNormal8.6-10.3The UC HealthComment on above:Order Comment: No: Do not add to previous drawPerformed By: #### 51794, 87111 ####[facility] [place] [address], [place] Chloride [Moles/Vol]106 mmol/ZAyxyvb23-170Jge UC HealthComment on above:Order Comment: No: Do not add to previous drawPerformed By: #### 05630, 45152 ####[facility] [place] [address], USACO2 [Moles/Vol]26 mmol/XPqhcjd78-86Sop UC HealthComment on above:Order Comment: No: Do not add to previous drawPerformed By: #### 04132, 19011 ####[facility] [place] [address], USACreatinine [Mass/Vol]0.76 mg/dLNormal 0.60-1.20The UC HealthComment on above:Order Comment: No: Do not add to previous drawPerformed By: #### 62549, 94395 ####[facility] [place] [address], USAGFR/1.73 sq M.predicted among blacks MDRD (S/P/Bld) [Vol rate/Area]mL/min/{1.73_m2}Normal>60 The UC HealthComment on above:Order Comment: No: Do not add to previous drawPerformed By: #### 93460, 81432 ####[facility] [place] [address], USAGFR/1.73 sq M.predicted among non-blacks MDRD (S/P/Bld) [Vol rate/Area]mL/min/{1.73_m2}Normal>60The UC HealthComment on above:Order Comment: No: Do not add to previous drawPerformed By: #### 09168, 26086 ####[facility] [place] [address], USAGlucose [Mass/Vol]114 mg/hBMrdj28-143Wdy UC HealthComment on above:Order Comment: No: Do not add to previous drawPerformed By: #### 56724, 46667 ####[facility] [place] [address], [place] Potassium [Moles/Vol]3.8 mmol/LNormal3.5-5.1The UC HealthComment on above:Order Comment: No: Do not add to previous drawPerformed By: #### 98645, 09598 ####[facility] [place] [address], USASodium [Moles/Vol]140 mmol/FDjnpis599-849Nqa UC HealthComment on above:Order Comment: No: Do not add to previous drawPerformed By: #### , 54255 ####[facility] [place] [address], USAUrea nitrogen [Mass/Vol]11 mg/dL Normal7-25The UC HealthComment on above:Order Comment: No: Do not add to previous drawPerformed By: #### 76334, 78163 ####[facility] [place] [address], USACBC W/DIFFon [id number] IMM GRANS0.0 10*3/uLNormal0.0-0.2The UC HealthComment on above:Order Comment: No: Do not add to previous drawPerformed By: #### 36227, 11896, 06710 #### [facility] [address] [place] [address], USAABS NEUTROPHILS4.5 10*3/uLNormal1.6-7.6The UC HealthComment on above:Order Comment: No: Do not add to previous drawPerformed By: #### 47818, 94730, 70661 #### [facility] [address] [place] [address], USABasophils (Bld) [#/Vol]0.0 10*3/uLNormal0.0-0.2The UC HealthComment on above:Order Comment: No: Do not add to previous drawPerformed By: #### 83053, 14805, 83028 #### [facility] [address] [place] [address], USABasophils/100 WBC (Bld)0.4 %Normal0.0-1.0The UC HealthComment on above:Order Comment: No: Do not add to previous drawPerformed By: #### 07986, 12095, 49953 #### [facility] [address] [place] [address], USAEosinophils (Bld) [#/Vol]0.1 10*3/uLNormal0.0-0.5The UC HealthComment on above:Order Comment: No: Do not add to previous drawPerformed By: #### 01908, 69471, 70957 #### [facility] [address] [place] [address], USAEosinophils/100 WBC (Bld)1.8 %Normal0.0-6.0The UC HealthComment on above:Order Comment: No: Do not add to previous drawPerformed By: #### 32537, 96081, 50593 #### [facility] [address] [place] [address], USAErythrocyte distribution width (RBC) [Ratio]13.3 %Normal 11.5-15.0The UC HealthComment on above:Order Comment: No: Do not add to previous drawPerformed By: #### 52287, 27771, 41479 #### [facility] [address] [place] [address], USAHematocrit (Bld) [Volume fraction]42.1 %Htoxkw28.0-45.0The UC HealthComment on above:Order Comment: No: Do not add to previous drawPerformed By: #### 78836, 59909, 82872 #### [facility] [address] [place] [address], USAHemoglobin (Bld) [Mass/Vol]13.8 g/lHYfexdx38.0-15.0The UC HealthComment on above:Order Comment: No: Do not add to previous drawPerformed By: #### 26114, 91603, 94267 #### [facility] [address] [place] [address], USAIMMATURE GRANS0.4 %Normal0.0-1.0The UC HealthComment on above:Order Comment: No: Do not add to previous draw Performed By: #### 51381, 62010, 29924 #### [facility] [address] [place] [address], USALymphocytes (Bld) [#/Vol]1.5 10*3/uLNormal1.2-4.0The UC HealthComment on above:Order Comment: No: Do not add to previous drawPerformed By: #### 81952, 35592, 98797 #### [facility] [address] [place] [address], USALymphocytes/100 WBC (Bld)21.5 %Lxvbyh85.0-45.0The UC HealthComment on above:Order Comment: No: Do not add to previous drawPerformed By: #### 16626, 76502, 53602 #### [facility] [address] [place] [address], [facility]H (RBC) [Entitic mass]29.8 ewRkvhqo27.0-33.0The UC HealthComment on above:Order Comment: No: Do not add to previous drawPerformed By: #### 76234, 66315, 91500 #### [facility] [address] [place] [address], [facility]HC (RBC) [Mass/Vol]32.8 g/yQEpxhyg49.0-35.0The UC HealthComment on above:Order Comment: No: Do not add to previous drawPerformed By: #### 72034, 46534, 31929 #### [facility] [address] [place] [address], [facility]V (RBC) [Entitic vol]90.9 pAWcetau66.0-98.0The [facility] HealthComment on above:Order Comment: No: Do not add to previous drawPerformed By: #### [id number], [id number] #### [facility] [address] [place] [address], USAMonocytes (Bld) [#/Vol]0.7 10*3/uLNormal0.1-1.0The [facility] HealthComment on above:Order Comment: No: Do not add to previous drawPerformed By: #### [id number], [id number], [id number] #### [facility] [address] [place] [address], USAMONOS9.6 %Normal5.0-12.0The UC HealthComment on above:Order Comment: No: Do not add to previous drawPerformed By: #### 27515, 91005, 64629 #### [facility] [address] [place] [address], USANeutrophils/100 WBC (Bld)66.3 %Ykhrtq29.0-72.0The UC HealthComment on above:Order Comment: No: Do not add to previous drawPerformed By: #### 98179, 84047, 25531 #### [facility] [address] [place] [address], USANucleated RBC/100 WBC (Bld) [Ratio]0 %Normal0-0The UC HealthComment on above:Order Comment: No: Do not add to previous drawPerformed By: #### 58176, 75164, 29286 #### [facility] [address] [place] [address], USAPLAT QCM731 10*3/nHLkhpbf722-924Vmp UC HealthComment on above:Order Comment: No: Do not add to previous draw Performed By: #### 73346, 43485, 81855 #### [facility] [address] [place] [address], USARBC (Bld) [#/Vol]4.63 10*6/uLNormal3.80-5.00The UC HealthComment on above:Order Comment: No: Do not add to previous drawPerformed By: #### 49586, 95305, 75856 #### [facility] [address] [place] [address], USAWBC (Bld) [#/Vol]6.85 10*3/uLNormal4.00-10.60The UC HealthComment on above:Order Comment: No: Do not add to previous drawPerformed By: #### 83754, 84691, 62986 #### [facility] [address] [place] [address], USAPOC GLUCOSE LABon 31-76-3724Oebauif [Mass/Vol]122 mg/dLHigh 70-100The UC HealthComment on above:Performed By: #### 82115, 23265, 49391 #### [facility] [address] [place] [address], USAGlucose [Mass/Vol]175 mg/uLErgr89-811Lfg UC HealthComment on above:Performed By: #### 48775, 97490, 35052 #### [facility] [address] [place] [address], USATROPONIN-Ion 22-03-0101Xsbohxtv I.cardiac [Mass/Vol]0.12 ng/mLCritically high0.00-0.04The UC HealthComment on above:Order Comment: No: Do not add to previous drawResult Comment: M-PREVIOUS CRITICAL RESULT REFERENCE RANGES: 0.00 - 0.04 ng/ml NORMAL 0.05 - 0.50 ng/ml INDETERMINATE > 0.50 ng/ml CONSISTENT WITH AN M.I.Performed By: #### 62207, 96542 ####[facility] [place] [address], [place] UFH HEPARIN ASSAYon 73-93-6817OCZFLPGVUKOEKX HEPARIN0.37 IU/mLNormal0.30-0.70The UC HealthComment on above:Result Comment: Rivaroxaban and Apixaban will interfere with the anti Xa assay used to monitor UFH and LMWH.Performed By: #### 75775 ####[facility] [place] [address], USABASIC METABOLIC PANELon 09-14-2020 Calcium [Mass/Vol]9.1 mg/dLNormal8.6-10.3The [facility] Comment on above:Order Comment: No: Do not add to previous drawPerformed By: #### 95170, 08954, 33433, 50208 ####[facility] [facility] [place] [address], USAChloride [Moles/Vol]104 mmol/JPzzthp46-824Our UC HealthComment on above:Order Comment: No: Do not add to previous drawPerformed By: #### 36861, 49936, 00263, 01116 ####[facility] [place] [address], USACO2 [Moles/Vol] 29 mmol/ITejldb15-49Orm UC HealthComment on above: Order Comment: No: Do not add to previous drawPerformed By: #### 00626, 77957, 41802, 04009 ####[facility] [place] [address], USACreatinine [Mass/Vol]0.83 mg/dLNormal0.60-1.20The UC HealthComment on above:Order Comment: No: Do not add to previous drawPerformed By: #### 27174, 99999, 57940, 10190 ####[place] [address] [place] [address], USAGFR/1.73 sq M.predicted among blacks MDRD (S/P/Bld) [Vol rate/Area]mL/min/{1.73_m2}Normal>60The UC HealthComment on above:Order Comment: No: Do not add to previous drawPerformed By: #### 33822, 04345, 01827, 87118 ####[place] [address] [place] [address], USAGFR/1.73 sq M.predicted among non-blacks MDRD (S/P/Bld) [Vol rate/Area]mL/min/{1.73_m2} Normal>60The UC HealthComment on above:Order Comment: No: Do not add to previous drawPerformed By: #### 90378, 43829, 57714, 93586 ####[facility] [place] [address], [place] Glucose [Mass/Vol]107 mg/nZChmr67-907Fwc [facility] Comment on above:Order Comment: No: Do not add to previous drawPerformed By: #### 10306, 78704, 19966, 29089 ####[facility] [place] [address], USAPotassium [Moles/Vol]3.6 mmol/LNormal3.5-5.1 The UC HealthComment on above:Order Comment: No: Do not add to previous drawPerformed By: #### 11293, 79433, 38767, 41632 ####[facility] [place] [address], [facility] Sodium [Moles/Vol]138 mmol/ARlpsqz229-437Yml [facility] Comment on above:Order Comment: No: Do not add to previous drawPerformed By: #### 14113, 97521, 01117, 82899 ####[facility] [place] [address], MEM[facility]IAL MEDICAL CENTERUrea nitrogen [Mass/Vol]10 mg/dLNormal7-25The UC HealthComment on above:Order Comment: No: Do not add to previous drawPerformed By: #### 20148, 07058, 53121, 25033 ####[facility] [place] [address], MEM[facility]IAL MEDICAL CENTERCBC W/DIFFon 76-99-2609DFY IMM GRANS0.0 10*3/uLNormal0.0-0.2The UC HealthComment on above:Order Comment: No: Do not add to previous drawPerformed By: #### 57077, 45940, 39672 #### [facility] [address] [place] [address], USAABS NEUTROPHILS3.2 10*3/uLNormal1.6-7.6The UC HealthComment on above:Order Comment: No: Do not add to previous drawPerformed By: #### 36088, 29328, 86591 #### [facility] [address] [place] [address], [facility] MED[facility] CENTERBasophils (Bld) [#/Vol]0.0 10*3/uLNormal0.0-0.2The UC HealthComment on above:Order Comment: No: Do not add to previous drawPerformed By: #### 16852, 20814, 17224 #### [facility] [address] [place] [address], USABasophils/100 WBC (Bld)0.4 %Normal0.0-1.0The UC HealthComment on above:Order Comment: No: Do not add to previous drawPerformed By: #### 83399, 55347, 99210 #### [facility] [address] [place] [address], USAEosinophils (Bld) [#/Vol]0.2 10*3/uLNormal0.0-0.5The UC HealthComment on above:Order Comment: No: Do not add to previous drawPerformed By: #### 28504, 44512, 40654 #### [facility] [address] [place] [address], USAEosinophils/100 WBC (Bld)3.3 %Normal0.0-6.0The UC HealthComment on above:Order Comment: No: Do not add to previous drawPerformed By: #### 62781, 16353, 33894 #### [facility] [address] [place] [address], USAErythrocyte distribution width (RBC) [Ratio]13.4 %Normal 11.5-15.0The UC HealthComment on above:Order Comment: No: Do not add to previous drawPerformed By: #### 03058, 58823, 97483 #### [facility] [address] [place] [address], USAHematocrit (Bld) [Volume fraction]42.5 %Qjbbjk01.0-45.0The UC HealthComment on above:Order Comment: No: Do not add to previous drawPerformed By: #### 38386, 42494, 64759 #### [facility] [address] [place] [address], USAHemoglobin (Bld) [Mass/Vol]14.0 g/kPAlxuiu23.0-15.0The UC HealthComment on above:Order Comment: No: Do not add to previous drawPerformed By: #### 78008, 87758, 50567 #### [facility] [address] [place] [address], USAIMMATURE GRANS0.2 %Normal0.0-1.0The UC HealthComment on above:Order Comment: No: Do not add to previous draw Performed By: #### 52809, 04338, 48461 #### [facility] [address] [place] [address], USALymphocytes (Bld) [#/Vol]1.6 10*3/uLNormal1.2-4.0The UC HealthComment on above:Order Comment: No: Do not add to previous drawPerformed By: #### 93439, 68661, 46291 #### [facility] [address] [place] [address], USALymphocytes/100 WBC (Bld)28.2 %Iwdcap67.0-45.0The UC HealthComment on above:Order Comment: No: Do not add to previous drawPerformed By: #### 94804, 85108, 22106 #### [facility] [address] [place] [address], [facility] CENTERMCH (RBC) [Entitic mass]29.9 mgFpjkqk71.0-33.0The UC HealthComment on above:Order Comment: No: Do not add to previous drawPerformed By: #### 32220, 25976, 74283 #### [facility] [address] [place] [address], [facility] MED[facility] CENTERMCHC (RBC) [Mass/Vol]32.9 g/jBFboofz49.0-35.0The UC HealthComment on above:Order Comment: No: Do not add to previous drawPerformed By: #### 20240, 73312, 91591 #### [facility] [address] [place] [address], USAMCV (RBC) [Entitic vol]90.6 tUHhcpoh94.0-98.0The UC HealthComment on above:Order Comment: No: Do not add to previous drawPerformed By: #### 98088, 51775, 72820 #### [facility] [address] [place] [address], USAMonocytes (Bld) [#/Vol]0.7 10*3/uLNormal0.1-1.0The UC HealthComment on above:Order Comment: No: Do not add to previous drawPerformed By: #### 29704, 37385, 29460 #### [facility] [address] [place] [address], NTMNMDOZ05.6 %Normal5.0-12.0The UC HealthComment on above:Order Comment: No: Do not add to previous drawPerformed By: #### 19313, 30143, 51082 #### [facility] [address] [place] [address], USANeutrophils/100 WBC (Bld)56.3 %Ednvkn70.0-72.0The UC HealthComment on above:Order Comment: No: Do not add to previous drawPerformed By: #### 69517, 57967, 76277 #### [facility] [address] [place] [address], USANucleated RBC/100 WBC (Bld) [Ratio]0 %Normal0-0The UC HealthComment on above:Order Comment: No: Do not add to previous drawPerformed By: #### 24461, 28321, 58048 #### [facility] [address] [place] [address], USAPLAT YVR713 10*3/kYLtzrhz256-395Ywl UC HealthComment on above:Order Comment: No: Do not add to previous draw Performed By: #### 77530, 66523, 32672 #### [facility] [address] [place] [address], USARBC (Bld) [#/Vol]4.69 10*6/uLNormal3.80-5.00The UC HealthComment on above:Order Comment: No: Do not add to previous drawPerformed By: #### 50034, 88179, 44780 #### [facility] [address] [place] [address], USAWBC (Bld) [#/Vol]5.68 10*3/uLNormal4.00-10.60The UC HealthComment on above:Order Comment: No: Do not add to previous drawPerformed By: #### 39694, 47006, 99274 #### [facility] [address] [place] [address], USAMAGNESIUM BLOODon 15-78-7120Mtqfxjkif [Mass/Vol]2.1 mg/dL Normal1.9-2.7The UC HealthComment on above:Order Comment: No: Do not add to previous drawPerformed By: #### 07338, 91331, 38820, 26644 ####[facility] [place] [address], USAPHOSPHORUS BLOODon 94-58-8436Egclkmrwy [Mass/Vol]3.6 mg/dLNormal2.5-5.0The UC HealthComment on above:Order Comment: No: Do not add to previous drawPerformed By: #### 77135, 89569, 16582, 07985 ####[facility] [place] [address], MEM[facility] MEDICAL CENTERPOC GLUCOSE LAB on 82-14-9324Tvyijyo [Mass/Vol]134 mg/lUKcqa38-775Vlv UC HealthComment on above:Performed By: #### 60473, 47320, 42518 #### [facility] [address] [place] [address], USAGlucose [Mass/Vol]168 mg/mJBguo72-565Tci UC HealthComment on above:Performed By: #### 45550, 27979, 35031 #### [facility] [address] [place] [address], USATROPONIN-Ion 43-87-3892Aipfeifr I.cardiac [Mass/Vol]0.29 ng/mLCritically high0.00-0.04The UC HealthComment on above:Result Comment: M-PREVIOUS CRITICAL RESULT REFERENCE RANGES: 0.00 - 0.04 ng/ml NORMAL 0.05 - 0.50 ng/ml INDETERMINATE > 0.50 ng/ml CONSISTENT WITH AN M.I.Performed By: #### 56561, 96401, 95357, 96121 ####[facility] [place] [address], USAUFH HEPARIN ASSAYon 24-18-4971EHPWCIXUMWEQTJ HEPARIN0.43 IU/mLNormal 0.30-0.70The UC HealthComment on above:Result Comment: Rivaroxaban and Apixaban will interfere with the anti Xa assay used to monitor UFH and LMWH.Performed By: #### 08444, 63899, 51400 #### [facility] [address] [place] [address], USAUNFRACTIONATED HEPARIN0.66 IU/mLNormal0.30-0.70The UC HealthComment on above:Result Comment: Rivaroxaban and Apixaban will interfere with the anti Xa assay used to monitor UFH and LMWH.Performed By: #### 30573 ####[facility] [place] [address], USAAPTTon 18-75-2571pOUY Coag (Bld) [Time]30.6 lMgdnir49.0-35.0The UC HealthComment on above:Result Comment: ALL RESULTS MUST BE [...] BE USED FOR THIS PURPOSE.Performed By: #### 45308, 97752, 82244 ####[facility] [place] [address], [place] BASIC METABOLIC PANELon 41-94-3805Ppgywtl [Mass/Vol]9.8 mg/dLNormal8.6-10.3The UC HealthComment on above:Order Comment: No: Do not add to previous drawPerformed By: #### 67530, 62446, 44137, 23243 ####[facility] [place] [address], USAChloride [Moles/Vol]104 mmol/KZusxxt15-822Maw UC HealthComment on above:Order Comment: No: Do not add to previous drawPerformed By: #### 43144, 29617, 59705, 71343 ####[facility] [place] [address], USACO2 [Moles/Vol]30 mmol/YZoivdu90-95Ibz UC HealthComment on above:Order Comment: No: Do not add to previous drawPerformed By: #### 29374, 74515, 98930, 48925 ####[facility] [place] [address], USACreatinine [Mass/Vol]0.77 mg/dLNormal0.60-1.20The UC HealthComment on above: Order Comment: No: Do not add to previous drawPerformed By: #### 95845, 82171, 58989, 83006 ####[facility] [place] [address], USAGFR/1.73 sq M.predicted among blacks MDRD (S/P/Bld) [Vol rate/Area] mL/min/{1.73_m2}Normal>60The UC HealthComment on above:Order Comment: No: Do not add to previous drawPerformed By: #### 27963, 97879, 32768, 77350 ####[facility] [place] [address], USAGFR/1.73 sq M.predicted among non-blacks MDRD (S/P/Bld) [Vol rate/Area]mL/min/{1.73_m2}Normal>60The [facility] Comment on above:Order Comment: No: Do not add to previous drawPerformed By: #### 19451, 05497, 43312, 80768 ####[place] [address] [place] [address], USAGlucose [Mass/Vol]85 mg/sTTlqpdo09-389Dhi UC HealthComment on above:Order Comment: No: Do not add to previous drawPerformed By: #### 01906, 37610, 77597, 76183 ####[facility] [place] [address], USAPotassium [Moles/Vol]4.2 mmol/LNormal3.5-5.1The UC HealthComment on above:Order Comment: No: Do not add to previous drawPerformed By: #### 01898, 57908, 85437, 63927 ####[facility] [place] [address], USASodium [Moles/Vol]141 mmol/ODxuyiu657-084Eyy UC HealthComment on above:Order Comment: No: Do not add to previous drawPerformed By: #### 46985, 95620, 30283, 30185 ####[facility] [place] [address], USAUrea nitrogen [Mass/Vol]10 mg/dLNormal7-25The UC HealthComment on above:Order Comment: No: Do not add to previous drawPerformed By: #### 80751, 14837, 70865, 70186 ####[facility] [place] [address], USACBC COMPLETE BLOOD COUNTon 93-91-5015Eqfefzqtlhk distribution width (RBC) [Ratio]13.4 %Ohvtrt12.5-15.0The UC HealthComment on above:Order Comment: No: Do not add to previous draw Performed By: #### 86491, 81521, 68867 #### [facility] [address] [place] [address], USAHematocrit (Bld) [Volume fraction]43.0 %Ldvsyr74.0-45.0The UC HealthComment on above:Order Comment: No: Do not add to previous drawPerformed By: #### 70088, 84627, 41087 #### [facility] [address] [place] [address], USAHemoglobin (Bld) [Mass/Vol]14.0 g/sVDlbyii23.0-15.0The UC HealthComment on above:Order Comment: No: Do not add to previous drawPerformed By: #### 77517, 05137, 29739 #### [facility] [address] [place] [address], [facility]H (RBC) [Entitic mass]29.5 bcFmtbax21.0-33.0The UC HealthComment on above:Order Comment: No: Do not add to previous drawPerformed By: #### 31804, 40587, 79251 #### [facility] [address] [place] [address], [facility] CENTERMCHC (RBC) [Mass/Vol]32.6 g/xAUrfagd56.0-35.0The UC HealthComment on above:Order Comment: No: Do not add to previous drawPerformed By: #### 24062, 64660, 27796 #### [facility] [address] [place] [address], USAMCV (RBC) [Entitic vol]90.7 oOSfbpzk41.0-98.0The UC HealthComment on above:Order Comment: No: Do not add to previous drawPerformed By: #### 48508, 92346, 39841 #### [facility] [address] [place] [address], USANucleated RBC/100 WBC (Bld) [Ratio]0 %Normal0-0The UC HealthComment on above:Order Comment: No: Do not add to previous drawPerformed By: #### 25930, 45045, 32558 #### [facility] [address] [place] [address], USAPLAT GHE045 10*3/wBFagvvr880-440Rlk UC HealthComment on above:Order Comment: No: Do not add to previous draw Performed By: #### 55873, 25253, 82013 #### [facility] [address] [place] [address], USARBC (Bld) [#/Vol]4.74 10*6/uLNormal3.80-5.00The UC HealthComment on above:Order Comment: No: Do not add to previous drawPerformed By: #### 52277, 27353, 34226 #### [facility] [address] [place] [address], USAWBC (Bld) [#/Vol]5.39 10*3/uLNormal4.00-10.60The UC HealthComment on above:Order Comment: No: Do not add to previous drawPerformed By: #### 46925, 81435, 38551 #### [facility] [address] [place] [address], USAMAGNESIUM BLOODon 72-78-0801Svzpudydg [Mass/Vol]2.1 mg/dL Normal1.9-2.7The UC HealthComment on above:Order Comment: No: Do not add to previous drawPerformed By: #### 10998, 14302, 78845, 41872 ####[facility] [place] [address], USAPHOSPHORUS BLOODon 61-91-8204Fnmeuekuo [Mass/Vol]4.0 mg/dLNormal2.5-5.0The UC HealthComment on above:Order Comment: No: Do not add to previous drawPerformed By: #### 43536, 22373, 22808, 67705 ####[facility] [place] [address], USAPROTHROMBIN TIME on 68-72-1318HIZ Coag (PPP) [Relative time]0.92 {INR}Normal0.91-1.16The UC HealthComment on above:Result Comment: ACCCP RECOMMENDED INR FOR [...] OPTIMAL THERAPEUTIC RANGE. CHEST 1995;108:231S-246S.Performed By: #### 72885, 98765, 29134 ####[facility] [place] [address], USAPT Coag (PPP) [Time]12.4 nGelpau23.3-14.8The UC HealthComment on above:Result Comment: ALL RESULTS MUST BE INTERPRETED WITH RESPECT TO BLOOD DRAWING ARTIFACT OR DILUTION ERROR OF ANTICOAGULANT AT THE TIME OF SAMPLING.Performed By: #### 63507, 14339, 89546 ####[facility] [place] [address], USATROPONIN-Ion 97-16-2418Vnucuonk I.cardiac [Mass/Vol] 0.37 ng/mLCritically high0.00-0.04The UC HealthComment on above:Order Comment: No: Do not add to previous drawResult Comment: M- TROPONIN INITIAL CRITICAL HIGH; RESPUN AND RETESTED M-CRITICAL RESULT(S) REVIEWED, CALLED TO AND READ BACK BY SHERRIE SPRAGUE RN AT 2254. REFERENCE RANGES: 0.00 - 0.04 ng/ml NORMAL 0.05 - 0.50 ng/ml INDETERMINATE > 0.50 ng/ml CONSISTENT WITH AN M.I.Performed By: #### 06916, 76963, 26536, 60476 ####[facility] [place] [address], USAUFH HEPARIN ASSAYon 40-48-2395EHXVZBIEAHLVSX HEPARIN<0.10Critically low 0.30-0.70The UC HealthComment on above:Result Comment: Rivaroxaban and Apixaban will interfere with the anti Xa assay used to monitor UFH and LMWH. RESULTS CHECKED AND CALLED. ACCURATELY READ BACK BY Sherrie Sprague RN at 2228.Performed By: #### 92225, 91827, 96367 ####[facility] [place] [address], USACBC COMPLETE BLOOD COUNTon 71-20-0494Mjxsiyjherx distribution width (RBC) [Ratio]13.5 %Normal 11.5-15.0The UC HealthComment on above:Order Comment: No: Do not add to previous drawPerformed By: #### 74526, 39725, 52306 #### [facility] [address] [place] [address], USAHematocrit (Bld) [Volume fraction]36.2 %Untfkg02.0-45.0The UC HealthComment on above:Order Comment: No: Do not add to previous drawPerformed By: #### 89918, 42043, 52428 #### [facility] [address] [place] [address], USAHemoglobin (Bld) [Mass/Vol]12.1 g/zRMlofkm07.0-15.0The UC HealthComment on above:Order Comment: No: Do not add to previous drawPerformed By: #### 10284, 54822, 63969 #### [facility] [address] [place] [address], [facility] (RBC) [Entitic mass]30.0 edNnragy52.0-33.0The UC HealthComment on above:Order Comment: No: Do not add to previous drawPerformed By: #### 98111, 18002, 91456 #### [facility] [address] [place] [address], [facility] (RBC) [Mass/Vol]33.4 g/wXBbgkbm16.0-35.0The [facility] HealthComment on above:Order Comment: No: Do not add to previous drawPerformed By: #### [id number], [id number], [id number] #### [facility] [address] [facility] [place] [address], [facility] [place] (RBC) [Entitic vol]89.6 qOQsggpg93.0-98.0The [facility] HealthComment on above:Order Comment: No: Do not add to previous drawPerformed By: #### [id number], [id number], [id number] #### [facility] [address] [place] [address], USANucleated RBC/100 WBC (Bld) [Ratio]0 %Normal0-0The [facility] HealthComment on above:Order Comment: No: Do not add to previous drawPerformed By: #### [id number], [id number], 24792 #### [facility] [address] [place] [address], USAPLAT [id number] 10*3/nCLuljzi223-037Nfg [facility] HealthComment on above:Order Comment: No: Do not add to previous draw Performed By: #### [id number], [id number], [id number] #### [facility] [address] [place] [address], USARBC (Bld) [#/Vol]4.04 10*6/uLNormal3.80-5.00The [facility] HealthComment on above:Order Comment: No: Do not add to previous drawPerformed By: #### [id number], 06493, [id number] #### [facility] [address] [place] [address], USAWBC (Bld) [#/Vol]6.91 10*3/uLNormal4.00-10.60The [facility] HealthComment on above:Order Comment: No: Do not add to previous drawPerformed By: #### [id number], [id number], [id number] #### [facility] [address] [place] [address], USACOMP METABOLIC PANELon [id number] [Mass/Vol]3.4 g/dL Low3.5-5.7The [facility] HealthComment on above:Order Comment: No: Do not add to previous drawPerformed By: #### [id number] #### [facility] [address] [place] [address], USAALKALINE SNLITO39 IU/AMoofls46-755Kzo UC HealthComment on above:Order Comment: No: Do not add to previous draw Performed By: #### [id number] #### [facility] [address] [place] [address], USAALT [Catalytic activity/Vol]12 U/LNormal7-52The UC HealthComment on above:Order Comment: No: Do not add to previous drawPerformed By: #### [id number] #### [facility] [address] [place] [address], USAAST [Catalytic activity/Vol]16 U/JKwaxtk11-66Cub UC HealthComment on above:Order Comment: No: Do not add to previous drawPerformed By: #### [id number] #### [facility] [address] [place] [address], USABilirubin [Mass/Vol]0.3 mg/dLNormal0.3-1.0The UC HealthComment on above:Order Comment: No: Do not add to previous drawPerformed By: #### [id number] #### [facility] [address] [place] [address], USACalcium [Mass/Vol]8.6 mg/dLNormal8.6-10.3The UC HealthComment on above:Order Comment: No: Do not add to previous drawPerformed By: #### 78811 #### [facility] [address] [place] [address], USAChloride [Moles/Vol]107 mmol/XBgtgfq26-152Jso UC HealthComment on above:Order Comment: No: Do not add to previous drawPerformed By: #### [id number] #### [facility] [address] [place] [address], USACO2 [Moles/Vol]25 mmol/JHscqao67-57Zfx UC HealthComment on above:Order Comment: No: Do not add to previous draw Performed By: #### 58257 #### [facility] [address] [place] [address], USACreatinine [Mass/Vol]0.72 mg/dLNormal0.60-1.20The UC HealthComment on above:Order Comment: No: Do not add to previous drawPerformed By: #### [id number] #### [facility] [address] [place] [address], USAGFR/1.73 sq M.predicted among blacks MDRD (S/P/Bld) [Vol rate/Area]mL/min/{1.73_m2}Normal>60The [facility] Comment on above:Order Comment: No: Do not add to previous drawPerformed By: #### 19740 #### [facility] [address] [place] [address], USAGFR/1.73 sq M.predicted among non-blacks MDRD (S/P/Bld) [Vol rate/Area]mL/min/{1.73_m2}Normal>60The [facility] Comment on above:Order Comment: No: Do not add to previous drawPerformed By: #### 08276 #### [facility] [address] [place] [address], USAGlucose [Mass/Vol]117 mg/rSSmnw72-815Pqa UC HealthComment on above:Order Comment: No: Do not add to previous drawPerformed By: #### 69598 #### [facility] [address] [place] [address], USAPotassium [Moles/Vol]3.5 mmol/LNormal3.5-5.1The UC HealthComment on above:Order Comment: No: Do not add to previous drawPerformed By: #### 97628 #### [facility] [address] [place] [address], USAProtein [Mass/Vol]5.9 g/dLLow6.0-8.3The UC HealthComment on above:Order Comment: No: Do not add to previous drawPerformed By: #### 40070 #### [facility] [address] [place] [address], USASodium [Moles/Vol]138 mmol/RLtefqr639-090Sew UC HealthComment on above:Order Comment: No: Do not add to previous drawPerformed By: #### 55314 #### [facility] [address] [place] [address], USAUrea nitrogen [Mass/Vol]14 mg/dLNormal7-25The UC HealthComment on above:Order Comment: No: Do not add to previous drawPerformed By: #### 33783 #### [facility] [address] [place] [address], USABASIC METABOLIC PANELon 24-03-5997Flavqxe [Mass/Vol]9.6 mg/dLNormal8.6-10.3The UC HealthComment on above: Performed By: #### 97185, 64774, 91304 #### [facility] [address] [place] [address], USAChloride [Moles/Vol]103 mmol/AXkrtwr61-350Vmd UC HealthComment on above:Performed By: #### 21316, 96530, 98055 #### [facility] [address] [place] [address], USACO2 [Moles/Vol]28 mmol/LIeweec70-43Ple UC HealthComment on above:Performed By: #### 85293, 29144, 87994 #### [facility] [address] [place] [address], USACreatinine [Mass/Vol]0.77 mg/dLNormal0.60-1.20The UC HealthComment on above:Performed By: #### 83106, 91529, 29642 #### [facility] [address] [place] [address], USAGFR/1.73 sq M.predicted among blacks MDRD (S/P/Bld) [Vol rate/Area]mL/min/{1.73_m2}Normal>60The [facility] Comment on above:Performed By: #### 60445, 01810, 48613 #### [facility] [address] [place] [address], USAGFR/1.73 sq M.predicted among non-blacks MDRD (S/P/Bld) [Vol rate/Area]mL/min/{1.73_m2}Normal>60The [facility] Comment on above:Performed By: #### 74519, 43009, 80434 #### [facility] [address] [place] [address], USAGlucose [Mass/Vol]116 mg/lJKxzg89-097Vom UC HealthComment on above:Performed By: #### 46853, 28034, 87016 #### [facility] [address] [place] [address], USAPotassium [Moles/Vol]3.7 mmol/LNormal3.5-5.1The UC HealthComment on above:Performed By: #### 84779, 07351, 31690 #### [facility] [address] [place] [address], USASodium [Moles/Vol]139 mmol/YNzunkj613-851Zjn UC HealthComment on above:Performed By: #### 43112, 98027, 12651 #### [facility] [address] [place] [address], USAUrea nitrogen [Mass/Vol]14 mg/dLNormal7-25The UC HealthComment on above:Performed By: #### 66490, 78138, 47878 #### [facility] [address] [place] [address], USACBC COMPLETE BLOOD COUNTon 13-74-2521Rbasmqacdmk distribution width (RBC) [Ratio]13.5 %Hqlqlw60.5-15.0The UC HealthComment on above:Performed By: #### 12109 ####[facility] [place] [address], [facility] CENTERHematocrit (Bld) [Volume fraction]42.5 %Mjtijp84.0-45.0The UC HealthComment on above:Performed By: #### [address] ####[place] [address], [facility] MED[facility] CENTERHemoglobin (Bld) [Mass/Vol]13.9 g/dLNormal 12.0-15.0The UC HealthComment on above:Performed By: #### 15836 ####[place] [address], [facility] (RBC) [Entitic mass]29.6 tdDezswl08.0-33.0The UC HealthComment on above:Performed By: #### 06607 ####[place] [address], [facility] CENTERMCHC (RBC) [Mass/Vol]32.7 g/lWYbuxox91.0-35.0The UC HealthComment on above: Performed By: #### 77389 ####[place] [address], [facility] (RBC) [Entitic vol]90.4 tCMifjlt74.0-98.0The UC HealthComment on above:Performed By: #### 00317 ####[address] [place] [address], [facility] Nucleated RBC/100 WBC (Bld) [Ratio]0 %Normal0-0The UC HealthComment on above:Performed By: #### 08878 ####[address] [place] [address], MEM[facility]IAL MEDICAL CENTERPLAT MNC900 10*3/kDRfwunh934-391 The UC HealthComment on above:Performed By: #### 64006 ####[facility] [facility] [place] [address], [facility] RBC (Bld) [#/Vol]4.70 10*6/uLNormal3.80-5.00The UC HealthComment on above:Performed By: #### 31571 ####[facility] [place] [address], [facility] MED[facility] CENTERWBC (Bld) [#/Vol]9.92 10*3/uL Normal4.00-10.60The UC HealthComment on above: Performed By: #### 05576 ####[facility] [place] [address], [facility] CENTERCardiovascular Lab Reporton [id number] Lab ReportUnACMC Healthcare [facility] MR #: [id number] Department of Physician: Adalid Keyes M.D. Division of Service Date: 11/09/2019 Cardiology Birthdate: 1970 Adult Cardiovascular Room #: [facility] [address] [place], [place] [address] Cardiovascular Laboratory Report INDICATIONS: The patient is [...] signed informed consent. 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 Both groin areas were prepped and draped in usual fashion. Using ultrasound guidance and micropuncture technique, the right and left common femoral veins were accessed and a 6-Andorran x 11 cm sheath was placed on the right and 11-Andorran x 11 cm sheath was placed on the left. Heparin was given intravenously and therapeutic ACT confirmed during the rest of the procedure. A AcuNav 10-Andorran intracardiac echocardiography catheter was advanced through the left femoral venous access and used to perform baseline imaging of the cardiac structures with identification of the interatrial septum and measurement of the rims. A 6-Andorran multipurpose catheter was advanced over a J-tipped wire and under fluoroscopy and intracardiac echocardiography guidance, the patent foramen ovale was crossed and a wire was advanced to the left superior pulmonary vein. Position was confirmed by pulmonary venous angiography. The catheter was advanced and then used to place an exchange length J-tipped Amplatz Super Stiff wire over which the 9-Andorran Amplatzer delivery sheath was advanced to the [...] The delivery sheath was exchanged to a 9-Andorran x 11 cm sheath. The intracardiac echocardiography [...] Keyes M.D. Date Trans: 11/09/2019 11:14 A/mario DN_JN:[id number] cc: Debi Leon D.O. [facility] [address] [address] Dariusz Keen M.D. [address] [place], [place] [address] Vital Signs Date TimeVital SignValuePerforming LeguhcyehZxjllwnv01-98-8727 09:02-0400 Diastolic blood mm[Hg]Benson Romero MD Work Phone: [facility] [place] [facility]10-08-2025 09:02-0400 Heart rate64 /minBenson Romero MD Work Phone: [facility] [place] [facility]10-08-2025 09:02-0400 Systolic blood oniyjsdd753 mm[Hg]Benson Romero MD Work Phone: [phone]-[facility] [place] [facility]10-08-2025 08:53-0400 Body gwahih315.56 cmBenson Romero MD Work Phone: [facility] [place] [facility]10-08-2025 08:53-0400 Body mass index (BMI) [Ratio]35.6 kg/g9BqgzxwBenson Romero MD Work Phone: [facility] [place] [facility]10-08-2025 08:53-0400 Body hsexih25.34 kgBenson Romero MD Work Phone: [facility] [place] [facility]02-12-2025 09:14-0500 Body emelwi188.56 cmEast [place] [facility]02-12-2025 09:14-0500Body mass index (BMI) [Ratio]35 kg/v7NlamwsoovEast [place] [facility] Hospital02-12-2025 09:14-0500Body .53 kgEast [place] [facility]02-12-2025 09:14-0500Diastolic blood tvqgorph25 mm[Hg][facility] [place] [facility] 05-17-2024 09:14-0500Heart rate57 /[facility] 05-17-2024 09:14-0500Systolic blood rjkulfvj422 mm[Hg][facility] [place] [facility]02-08-2025 09:45-0500Diastolic blood cjlsysig79 mm[Hg][facility] [place] [facility]02-08-2025 09:45-0500Systolic blood iiegwpqi793 mm[Hg][facility] [place] [facility]02-08-2025 09:04-0500Body yeidpm527.56 cmEast [place] [facility]02-08-2025 09:04-0500Body mass index (BMI) [Ratio]35.2 kg/a1RidzvlrltEast [place] Regional Hospital02-08-2025 09:04-0500Body fnodqqagplg32 [degF][facility] [place] [facility]02-08-2025 09:04-0500Body jtrscu88.15 kg [facility] [place] [facility]02-08-2025 09:04-0500Heart rate74 /[facility]02-08-2025 09:04-0500Respiratory rate16 /[facility]02-08-2025 09:04-5971AcP6% (BldA) [Mass fraction]98 % [facility] [place] [facility]11-26-2024 08:39-0500Body .56 cm [facility] [place] [facility]11-26-2024 08:39-0500Body mass index (BMI) [Ratio]36.3 kg/l4QdocdouzpEast [place] [facility] Hospital11-26-2024 08:39-0500Body .16 kgEast [place] [facility]11-26-2024 08:39-0500Diastolic blood rpdaegvr52 mm[Hg][facility] [place] [facility]11-26-2024 08:39-0500 Heart rate60 /[facility]11-26-2024 08:39-0500Systolic blood uamsdypc855 mm[Hg][facility] [place] [facility]09-24-2024 12:46-0400 Body mwubfp699.56 cmEast [place] [facility]09-24-2024 12:46-0400Body mass index (BMI) [Ratio]35.9 kg/g1DeejbvegpEast [place] [facility]09-24-2024 12:46-0400Body ibyzdrtkbwa66.3 [degF][facility] [place] [facility]09-24-2024 12:46-0400Body iznjkl15.8 kgEast [place] [facility]09-24-2024 12:46-0400Diastolic blood safiddtu347 mm[Hg][facility] [place] [facility] 12-28-2023 12:46-0400Heart rate82 /[facility] 12-28-2023 12:46-0400Respiratory rate16 /[facility] 12-28-2023 12:46-9626IrQ0% (BldA) [Mass fraction]98 %[facility] [place] [facility]09-24-2024 12:46-0400Systolic blood womnwrif007 mm[Hg][facility] [place] [facility]07-08-2024 13:18-0400Diastolic blood cdqaquks504 mm[Hg]Michelet Velázquez [facility]07-08-2024 13:18-0400Heart rate64 /minThomas Melania [facility]07-08-2024 13:18-0400 Respiratory rate18 /minThomas Melania [facility]07-08-2024 13:18-5630GaC0% (BldA) [Mass fraction]96 %Michelet Velázquez [facility]07-08-2024 13:18-0400 Systolic blood mm[Hg]Michelet Velázquez [facility]07-08-2024 09:52-0400Body paumnv557.56 cmEast [place] [facility]07-08-2024 09:52-0400Body mass index (BMI) [Ratio]35.5 kg/f7ZwuvxizqgEast [place] Regional Hospital07-08-2024 09:52-0400Body bwjwka67.89 kgEast [place] [facility]07-08-2024 09:52-0400Diastolic blood iftsvicj09 mm[Hg][facility] [place] [facility] 10-11-2023 09:52-0400Heart rate57 /minEast [place] [facility] 10-11-2023 09:52-0400Systolic blood oiqyoeno003 mm[Hg][facility] [place] [facility]06-11-2024 10:06-0400Body alvoby949.56 cmEast [place] [facility]06-11-2024 10:06-0400Body mass index (BMI) [Ratio]36 kg/k5FbxprekdpEast [place] Regional Hospital06-11-2024 10:06-0400Body owmqnz07.25 kgEast [place] [facility]05-28-2024 08:35-0400Body tvobhv423.56 cmEast [place] [facility]05-28-2024 08:35-0400Body mass index (BMI) [Ratio]36 kg/v1OffjplzkkEast [place] Regional Hospital05-28-2024 08:35-0400Body wmhkor25.25 kg [facility] [place] [facility]05-28-2024 08:35-0400Diastolic blood dhgfgbfe49 mm[Hg][facility] [place] [facility]05-28-2024 08:35-0400Heart rate61 /min [facility] [place] [facility]05-28-2024 08:35-0400Systolic blood fhfvyghx676 mm[Hg][facility] [place] [facility]12-18-2023 07:14-0500Blood Pressure Shantell Contreras [facility]12-18-2023 07:14-0500 Diastolic blood htformqz34 mm[Hg]Jairo Contreras [facility]12-18-2023 07:14-0500Heart rate66 /minJairo Contreras [facility]12-18-2023 07:14-0500 Respiratory rate16 /minRyan Ben [address] [place], [place] 8475412-18-2023 07:14-7539YeQ4% (BldA) [Mass fraction]98 %Jairo Contreras [address] [place], [place] 8475412-18-2023 07:14-0500 Systolic blood lkjjsizs047 mm[Hg]Jairo Contreras [address]12-15-2023 12:54-0500Blood Pressure LocationRyan Ben [address]12-15-2023 12:54-0500 Diastolic blood qnnkrupt294 mm[Hg]Jairo Contreras [address]12-15-2023 12:54-0500Heart rate71 /minTeoan Ben [address] [place], [place] 8475412-15-2023 12:54-7120FpW9% (BldA) [Mass fraction]97 %Jairo Contreras [address] [place], [place] 8475412-15-2023 12:54-0500 Systolic blood csmmljsa746 mm[Hg]Jairo Contreras [address] [place], [place] 8475412-14-2023 13:15-0500Body hchevw289.56 cmBenson Romero Other [employer] Other 12-14-2023 13:15-0500Body mass index (BMI) [Ratio] 36.21 kg/n3NhfdpaBenson Romero Other [facility] imgfave Other 12-14-2023 13:15-0500Body ystpup20.71 kgBenson Romero Other [facility] [employer] Other 12-14-2023 13:15-0500Diastolic blood uvzvijqd61 mm[Hg] Benson Romero Other [employer] Other 12-14-2023 13:15-2766CcO6% (BldA) [Mass fraction]97 % Benson Romero Other [employer] Other 12-14-2023 13:15-0500Systolic blood ymorubpr017 mm[Hg] Benson Romero Other [employer] Other 08-29-2023 13:00-0400Body oyagtr076.56 cmBenson Romero Other [employer] Other 08-29-2023 13:00-0400Body mass index (BMI) [Ratio] 34.67 kg/l5YmoyahBenson Romero Other [employer] Other 08-29-2023 13:00-0400Body .63 kgBenson Romero Other [employer] Other 08-29-2023 13:00-0400Diastolic blood povndgtm36 mm[Hg] Benson Romero Other [employer] Other 08-29-2023 13:00-0400Systolic blood mm[Hg] Benson Romero Other [employer] Other 06-22-2023 12:51-0400Diastolic blood jvimqedx784 mm[Hg]Jairo Contreras [facility]06-22-2023 12:51-0400Mean blood gurbcxql063 mm[Hg]Jairo Conterras [facility]06-22-2023 12:51-0400 Systolic blood ufkghejj204 mm[Hg]Jairo Contreras [address] [place], [place] 2271406-22-2023 12:42-0400Blood Pressure LocationJairo Contreras [address] [place], [place] 2271406-22-2023 12:42-0400 Diastolic blood azfbaaeo189 mm[Hg]Jairo Contreras [address] [place], [place] 2271406-22-2023 12:42-0400Heart rate76 /minRyan Ben [address] [place], [place] 2271406-22-2023 12:42-0400 Respiratory rate18 /minRyeri Contreras [address] [place], [place] 2271406-22-2023 12:42-5459HgO3% (BldA) [Mass fraction]96 %Jairo Contreras [address] [place], [place] 2271406-22-2023 12:42-0400 Systolic blood jgmvwaho693 mm[Hg]Jairo Contreras [address] [place], [place] 2271401-04-2023 09:16-0500Blood Pressure Locationeri Contreras [address] [place], [place] 2271401-04-2023 09:16-0500Body iiahhudvukk49.24 [degF]Jairo Ben [address] [place], [place] 2271401-04-2023 09:16-0500 Diastolic blood omqirjcx549 mm[Hg]Jairo Teaganerson [address] [place], [place] 2271401-04-2023 09:16-0500Heart rate76 /minRyan Teaganerson [address] [place], [place] 2271401-04-2023 09:16-0500 Respiratory rate16 /minRyan Ben [address] [place], [place] 2271401-04-2023 09:16-9458AcH3% (BldA) [Mass fraction]98 %Jairo Ben [address]01-04-2023 09:16-0500 Systolic blood vavptjix428 mm[Hg]Jairo Teaganerson [address] [place], [place] 2271412-29-2022 13:48-0500 Diastolic blood ptreshrb325 mm[Hg]Jairo Víctoroffdao [address] [place], [place] 2271412-29-2022 13:48-0500Mean blood mm[Hg]Jairo Ben [address]12-29-2022 13:48-0500 Systolic blood mm[Hg]Jairo Ben [address] [place], [place] 2271412-29-2022 13:32-0500Blood Pressure LocationRyan Ben [address] [place], [place] 2271412-29-2022 13:32-0500 Diastolic blood zthrlibs142 mm[Hg]Jairo Ben [address] [place], [place] 2271412-29-2022 13:32-0500Heart rate80 /minRyan Ben [address] [place], [place] 2271412-29-2022 13:32-0500 Respiratory rate18 /minRyan Ben [address] [place], [place] 8475412-29-2022 13:32-6184HpN3% (BldA) [Mass fraction]98 %Jairo Ben [address] [place], [place] 8475412-29-2022 13:32-0500 Systolic blood pkyhtlyo496 mm[Hg]Jairo Candelariadao [address] [place], [place] 2271412-15-2021 09:13-0500 Diastolic blood bakypnzu72 mm[Hg]Dariusz Keen Work Phone: [phone]-Hnflv [place] [facility] DO Work Phone: 1(871) 649-821212-15-2021 09:13-0500Systolic blood jvhylkpz089 mm[Hg] Dariusz Keen Work Phone: 1([phone]) [phone]-Qsybz [place] [facility]-[place] 250 DO Work Phone: 1(613) 307-574412-15-2021 08:57-0500Body igumlp929.56 cmKim Jenna Keen Work Phone: 1(267) [phone]-Vskue [place] [facility] [address] DO Work Phone: 1(993) 114-504312-15-2021 08:57-0500Body mass index (BMI) [Ratio] 36.39 kg/m2Kijeffery Keen Work Phone: 1(105) [phone]-Xnxxk [place] [facility] [address] DO Work Phone: 1(165) 383-598212-15-2021 08:57-0500Body surface area Derived from formula2.01 m2Kijeffery Keen Work Phone: 1(982) [phone]-Ipthx [place] [facility] 250 DO Work Phone: 1(788) 151-738212-15-2021 08:57-0500Body .16 kgKi Jenna Keen Work Phone: 1(450) [phone]-Rxkbp [place] [facility] 250 DO Work Phone: 1(955) 184-534212-15-2021 08:57-0500Diastolic blood uondskwy131 mm[Hg]Dariusz Keen Work Phone: 1([phone]) [phone]-Sbtni [place] [facility] 250 DO Work Phone: 1(111) 395-488812-15-2021 08:57-0500Heart rate74 /minKim Jenna Keen Work Phone: 1(960) [phone]-Untjb [place] [facility] 250 DO Work Phone: 1(733) 122-500612-15-2021 08:57-0500Systolic blood wkpikckh677 mm[Hg] Dariusz Keen Work Phone: 1(878) [phone]-Auiko [place] [facility] [address] DO Work Phone: Encounters Encounter DateEncounter TypeCare ProviderFacilityStart: 01-10-2025 End: 83-97-5437bgtktwqvnkStrpyx E Braun MD Work Phone: [facility] Work Phone: Start: 01-10-2025 End: 95-56-8456Jvlingh encounter procedureBenson Romero MD-[facility] Work Phone: Start: 25-86-0446qwdvdgpnerRmrzte A SteinFacility:[facility] Start: 12-16-2024 End: 75-57-8526Cafhhflvi department patient visitSamuel GhencianFacility:[facility] Start: 52-43-1954Msg-patient / Non-visitCatherine Sebastian [facility] Work Phone: Start: 05-17-2024 End: 39-59-3215jatvqtavxuElbzynjziOhio [facility] Hospital Work Phone: Start: 05-17-2024 End: 08-34-4008Iknqfms encounter procedureFircamdens Physician Group-[facility] Work Phone: Start: 05-13-2024 End: 22-46-3112cpisbkuogfBrunmhbtbOhio Valley Hospital Work Phone: Start: 05-13-2024 End: 05-54-1970Askxfjo encounter procedureFircamdens Physician Group-[facility] Work Phone: Start: 13-14-7666Trl-patient / Non-visitFirelands Physician Group-[facility] Work Phone: Start: 02-29-2024 End: 16-38-3942Vczmwwo encounter procedureFirelands Physician Group-[facility] Work Phone: Start: 41-77-6152Owl-patient / Non-visitFirelands Physician Group-[facility] Work Phone: Start: 12-28-2023 End: 02-24-1596bkvweyzffpFigruuzzdMary [facility] Work Phone: Start: 12-28-2023 End: 50-51-0389Gchdrbk encounter procedureFirelands Physician Group-[facility] Work Phone: Start: 10-11-2023 End: 05-48-1965Jdwyybx encounter procedureMichelet Velázquez [facility] Start: 10-11-2023 End: 54-89-7085ojgsxjrxwxAqdnguanpMary Rutan Hospital Work Phone: Start: 10-11-2023 End: 43-17-0027Asgnriq encounter procedureDavidinova mount [facility] Work Phone: Start: 09-14-2023 End: 18-60-5549euirptqoeyAizcmuyedMary Rutan Hospital Work Phone: Start: 09-14-2023 End: 38-11-2315Rgqvcit encounter procedureDavidinova mount [facility] Phys[facility] Work Phone: Start: 08-31-2023 End: 24-98-7594wcimazjcylOevizlkluMary Rutan Hospital Work Phone: Start: 08-31-2023 End: 37-07-8955Zivbkru encounter procedureDavidinova mount [facility] Phys[facility] Work Phone: Start: 04-06-2023 End: 98-29-8249ifgpsiwlsfOcteqb Braun Other [facility] [employer] Other Start: 38-37-2844Przmdjpdx encounterBenson RomeroFrankie [facility] Centertart: 03-22-2023 End: 01-97-3481Ybbozogto to same day surgery Brian Contreras [facility] Start: 03-19-2023 End: 72-54-5748Nxsvtbf encounter Madeleine Contreras [facility] Start: 03-18-2023 End: 78-13-3681rwatzoaxyuTctbhp Braun Other [employer] Other Start: 80-27-8929Gigoomo encounter procedureBenson RomeroFrankie Mcelroy [facility]: 12-23-2022 End: 25-56-6779gorgcyqedjGkamuk Romero [facility] [employer] Other Start: 68-77-6173Woxznvyea encounterBenson RomeroFrankie Mcelroy [facility]: 12-01-2022 End: 43-14-7712zpxesskdhmGfjgkw Romero [facility] [employer] Other Start: 71-05-5068Kniidm outpatient new 45 minutes [facility] 10-12-2022 End: 99-07-1600Vbswjer encounter procedureJairo Contreras [facility] Start: 09-24-2022 End: 97-19-8058Ictzvjv encounter Madeleine Contreras [facility] Start: 05-11-2022 End: 94-41-8950Hiuoezr encounter Madeleine Contrreas [facility] Start: 04-28-2022 End: 85-87-3378kkbjpvndgeOWMelanie KEEN .Facility:V8Lynjk: 04-08-2022 End: 13-11-9240Nlrlwunvq to same day surgery Brian Contreras [facility] Start: 04-07-2022 End: 58-95-4583ummdxhlucfCYMelanie KEEN .Facility:A1Vfxhj: 04-02-2022 End: 03-17-9520Pwhjnsu encounter Madeleine Contreras [facility] Start: 04-01-2022 End: 34-41-9610gwefrtvpxdUR KIM E KNIGHT .Facility:J5Kozhx: 12-02-2021 End: 29-49-3312octlzjmvjkZX KIM E KNIGHT .Facility:U6Bvbvt: 74-73-0606He Renewal Dariusz Keen Work Phone: [phone]-Fpjlb [facility] 250 DO Work Phone: Start: 10-08-2021 End: 81-20-9841nllfwpxrwsVLOBF PARKERFacility:C5Uwysv: 08-25-2021 End: 05-32-0135nzrutqavyhPG KIM E KNIGHT .Facility:W0Zgpqr: 08-15-2021 End: 34-53-6853ygfxttylriUF KIM E KNIGHT .Facility:P2Bndfy: 07-29-2021 End: 73-19-1785spmzvpvkvcQL ANIKA Grossman SMITHFacility:G4Aqltu: 07-23-2021 End: 40-99-5248pstidhgwuvPP DARIUSZ KEEN .Facility:K1Tdxqa: 31-64-5315Cl Renewal Dariusz Keen Work Phone: [phone]-Ezlkh [facility] 250 DO Work Phone: Start: 59-59-0885Qi RenewalRakeshm E Keen Work Phone: [phone]-Zfhrq [facility] 250 DO Work Phone: Start: 41-51-8488Gvkurs outpatient visit 25 minutesDariusz Keen Work Phone: [phone]-Potjc [facility] DO Work Phone: Start: 09-13-2020 End: 45-65-1585Pvckezpdra and management of inpatientKIM KNIGHTFacility:[facility] Start: 11-09-2019 End: 26-48-2172rfwjkkjtkuRJG KNIGHTFacility:[facility]OS[facility]ITALEchocardiogram normalKim E Keen Work Phone: [phone]-Zyyhx [facility] DO Work Phone: Procedures DateProcedureProcedure DetailPerforming ClinicianStart: 62-76-6293Nbrjk Strep (POC)Start: 21-91-8968PLBLS Antigen (POC)Start: 51-18-0845Acrlu Strep (POC) Start: 72-86-3222Ygenbrwpgktffku of left heartRyan Ben Start: 33-19-9640Cmzpcbjrwxkdpqi of left heartRyan Ben Start: 52-70-0013Qyhdtuvjesfg coronary intervention of anterior descending branch of left coronary arteryTeoan Ben Start: 43-62-3058Gmbevaudboq of Left Heart using Low Osmolar ContrastEHAB A ELTAHAWYStart: 08-02-6989HLWIGCPLQFD OF MULT COR ART USING L OSM CONTRASTEHAB A ELTAHAWYStart: 03-07-4648EPDSCVY OF CARDIAC SAMPL \T\ PRESSURE, L HEART, PERC APPROACHEHAB A ELTAHAWYStart: 17-83-7838KVZYELEMQXIXVNZ OF RIGHT AND LEFT HEART, TRANSESOPHAGEALYOCASTA BOSWELLppendectomyTeoeri [...] Work Phone: Plan of Treatment DateCare ActivityDetailAuthorStart: 71-28-5883KJM, Provider: Navdeep German, Status: Pen, Time: 10:30 AMFUV, Provider: Navdeep German, Status: Pen, Time: 10:30 [facility]ust[facility] Work Phone: Start: 97-85-4355IZU, Provider: Navdeep German, Status: Pen, Time: 11:15 AMFUV, Provider: Navdeep German, Status: Pen, Time: 11:15 AMNav[facility] HeartAnastasi[facility] 250 DO Work Phone: Comprehensive metabolic 1999 panel - Serum or Plasma [facility] HospitalCom[facility] 1999 panel - Serum or [facility] HospitalComprehenve metabolic 1999 panel - Serum or [facility] HospitalMG Breast - bilateral Screening [facility] HospitalPatient [facility] Work Phone: XR Knee - left 4 [facility] Immunizations Immunization DateImmunizationNotesCare LbownqhkFukyqudc77-30-8991Ymguapx COVID- 19 Vaccine 100 MCG/0.5ML Intramuscular SuspensionKim E Keen Work Phone: [phone]-JdwedMarietta Memorial Hospital09-10-2021Moderna COVID-19 Vaccine 100 MCG/0.5ML Intramuscular SuspensionKim E Keen Work Phone: [phone]-IodczMarietta Memorial Hospital Payers DatePayer CategoryPayerPolicy [id number] 2.840.1.659403.3.57[id number] 2.840.1.437588.3.57[id number] 2..840.1.400105.3.57[id number] 2.16.840.1.058878.3.57[id number] 2..840.1.449193.3.57[id number] 2..840.1.222682.3.57[id number] 2..840.1.679439.3.57[id number] 2.0.1.156672.3.57[id number] 2.0.1.730679.3.57[id number] 2.0.1.744251.3.57[id number] 2.840.1.412488.3.579.2.727 [id number] 1958Medicare [id number] [id number] Social History DateTypeDetailFacilityNo alcohol useNo alcohol useMP-[facility] DO Work Phone: Comment on above:1 pepsi daily.;Start: 04-02-2022 End: 74-17-7881Uabcjit smoking statusNever smoked tobacco (finding)[facility] HospitalTobacco smoking statusNeverElyria Memorial Hospitalex Assigned At [facility] Hospitaltart: 62-00-4700Wqx Assigned At [facility] Clinictart: 05-13-2024 End: 55-15-0527NdgGpubvd (finding)[facility] Medical Equipment Procedure CodeEquipment CodeEquipment Original TextEquipment IdentifierDates Unknown Unknown 04/08/22 Unknown Left Anterior Descending Coronary ArteryFDAStart: 37-43-5269GHCEbqfv: 95-40-6064Ijxwjxe Unknown 04/08/22 Unknown Left Anterior Descending Coronary ArteryFDAStart: 34-19-6650CGOAnbmf: 18-28-5408Hxpoejz Unknown 04/08/22 Unknown Left Anterior Descending Coronary ArteryFDAStart: 37-74-8531QEKPzrfp: 83-33-8798Nnasebi Unknown 04/08/22 Unknown Left Anterior Descending Coronary ArteryFDAStart: 35-15-1873EKUFdoox: 81-34-2530WDUL STYLE LITE TEST STRIPS -Unknown Unknown 04/08/22 Unknown Left Anterior Descending Coronary ArteryFDAStart: 12-51-4048IOWJatmf: 57-92-2512Ncquxbu Unknown 04/08/22 Unknown Left Anterior Descending Coronary ArteryFDAStart: 44-82-0793FYRPpijx: 73-86-3482Dopynux Unknown 04/08/22 Unknown Left Anterior Descending Coronary ArteryFDAStart: 54-11-9695JWIHsnma: 80-04-0470Bzjvifn (Freestyle Lancets) 28 gauge miscStart: 94-23-6053Isfhiea (Freestyle Lancets) 28 gauge miscStart: 02-29-2024 End: 25-94-2770Lxappww (Freestyle Lancets) 28 gauge miscStart: 03-21-2024 End: 52-91-1575Rwhlhed (Freestyle Lancets) 28 gauge miscStart: 55-63-2023Oyqlasp (Freestyle Lancets) 28 gauge miscStart: 02-29-2024 End: 43-69-9275Qyteroz (Freestyle Lancets) 28 gauge miscStart: 03-21-2024 End: 79-34-1667Zijmqfq (Freestyle Lancets) 28 gauge miscStart: 27-11-2055Kwhvvfs (Freestyle Lancets) 28 gauge miscStart: 02-29-2024 End: 48-95-8327Khbctvw (Freestyle Lancets) 28 gauge miscStart: 03-21-2024 End: 03-30-2024 Functional Status KynrUynzigktwtRrvffzCetgajkb34-15-8645Ybpdlwfxbm StatusN/[facility]12-18-[facility]23Functional StatusN/[facility]12-15-2023 Functional StatusN/[facility]06-22-2023[facility] Status[facility]04[facility]23Functional StatusN/[facility]12-29-2022Function[facility] Status[facility] Clinical Notes 09-17-2020 to 12-16-2024 Note Date & VrtyEnpzLirznrux85-22-3791 NoteED Patient Education Note Dentistry Dental Extraction, [...] these instructions at home: Medicines ??? Take yazj-wjr-afcmvkb and prescription medicines only as told by [...] your pee (urine) pale yellow. ? Take spiw-wmd-sqlqrgl or prescription medicines. ? Eat foods that [...] and water are not available, use hand chief nursing executive. ? Change and remove your gauze as [...] is okay: ? Rinse your mouth. ? [place] or floss near your extraction area. You [...] you by your health (more content not included)...[facility]* Diagnosis Onset Date Resolution Status Admit Date Abdominal bloating acuteNov2023 8:36amElevated glucose levelacuteFebruary 29, 2024 8:36amEssential (primary) hypertensionacuteFebruary 29, 2024 8:36amFacial paresthesiaacuteFebruary 29, 2024 8:36amInfluenza [facility]acEn[facility] 20[facility] 9:03am [facility] Work Phone: [phone] Evaluation note* Diagnosis Onset Date Resolution Status Admit Date Abdominal bloating acuteFebruary 29, 2024 8:36amElevated glucose levelacuteFebruary 29, 2024 8:36amEssential (primary) hypertensionacuteFebruary 29, 2024 8:36amFacial paresthesiaacuteFebruary 29, 2024 8:36amAcute bacterial tonsillitisacute May 13, 2024 9:03amInfluenza AacEncompass [facility] 2024 9:03am [facility] Work Phone: [phone] Hospital Discharge instructions Patient Education 03/22/2023 11:28:20 CV - Cardiovascular Discharge Instructions (CUSTOM) [place], [place] CARDIOVASCULAR DISCHARGE INSTRUCTIONS Diet: Resume pre-procedure [...] hours post procedure: Actoplus MetGlucophageGlucophage XR GlucovanceAvandametFortamet Hja-haegjfyjtOqsvtvKebb-jpraphavl GlumetzaJanumetMetaglip RiometGlycomet *Minimal pain, soreness and/or discomfort [...] you are interested in smoking cessation, contact [facility] at [phone], ext. [phone]. In the event you are unable to reach your physician, please call [facility] at [phone] and the cw operator will assist you. Seek Immediate Medical Care for: Bleeding: Apply continuous pressure to the site and Call 911. Should the arm or leg become cold, numb, blue or white call your physician immediately. Signs of infection are redness, warmth, swelling, increased tenderness, colored drainage, fever or chills Chest pain Follow Up Care 03/19/2023 14:09:21 With:Jairo Contreras Address: [facility] When:05/07/2023 14:45:00 [facility]12-14-2023 Evaluation note* Encounter Date Diagnosis Assessment Notes Treatment Notes Treatment Clinical Notes Mar, Chest pain, unspecified type (IC D-10 - R07.9) Pt agrees to go to ER. No charge for today's visit. Report called to Doris at ER. Has followup w cardio tomorrow in [place]. Alexa states all of her symptoms are very similar to those of her previous heart attack. [employer] Other 08-29-2023 Evaluation note* Encounter Date Diagnosis [...] Stay well hydrated. Nov,oronary artery disease involving [place] coronary artery of [place] heart without angina pectoris (ICD-10 - I25.10)Continue f/u w [facility] Cardio [facility] Other 06-05-2023 Evaluation + Plan note Future Scheduled Tests Laboratory* HgbA1c 09/07/22 * TSH With T4fr Reflex 09/07/22 * CBC w/ Auto Diff 09/07/22 * Comprehensive Metabolic Panel 09/07/22 * Lipid Panel 09/07/22 Radiology* CV Cardiovascular 04/07/22 [facility]01-04-2023 Hospital Discharge instructions Patient Education 04/08/2022 13:08:49 CV - Cardiovascular PCI Discharge Instructions (CUSTOM) [place], [place] Cardiovascular PCI DISCHARGE INSTRUCTIONS Diet: Resume [...] hours post procedure: Actoplus MetGlucophageGlucophage XR GlucovanceAvandametFortamet Bbp-tnebjdeqzGdzjzxZneg-uffopycpk GlumetzaJanumetMetaglip RiometGlycomet Minimal pain, soreness and/or discomfort is expected. If you are prescribed an aspirin and/or antiplatelet (such as Plavix, Brilinta or Effient) do NOT stop taking these medications for any reason without talking to your airport engineer Site Care: Do not remove dressing for [...] you are interested in smoking cessation, contact [facility] at [phone], ext. [phone]. In the event you are unable to reach your physician, please call [facility] at [phone] and the cw operator will assist you. Seek Medicare Care [...] Up Care 04/07/2022 15:40:27 With:Jairo Contreras Address: [address] [place], [place] [id number] Business (1) When:04/30/2022 12:15:00 [facility]01-04-2023 Evaluation + Plan noteExtracted from: Title:Procedure Note Heart & VascularAuthor:Ben PARRISH, Jairo RoblesDate: 04/08/22 CAD in [place] artery, (I25.10: Atherosclerotic heart disease of [place] coronary artery without angina pectoris)CAD in [place] artery Orders: aspirin, Tab-Chew, Misc, Once, Stop [...] Transthoracic Complete 05/05/22 * CV Cardiovascular 04/07/22 [facility]06-15-2021 NoteMR#: [id number] I [facility] Pt. Name: Alexa Carey Admitted: 09/13/2020 Discharged: [...] nausea, vomiting, and subsequently transferred to the [facility] for further workup. Cardiology team consulted. Patient [...] Dunn MD Date Trans: 09/17/2020 04:19 P/mario DN_JN:[id number] cc: Dariusz Keen M.D. [address] [place] [phone] Memorial HospitalEvaluation + Plan note Future Appointments Appointment Date:04/30/2022 12:15:00 PM Scheduled Provider:Jairo Contreras MD [facility] Type:Cardiology Follow Up (FT) Future Scheduled Tests Radiology* Echo Transthoracic Complete 04/02/22 [facility] Future Appointments Appointment Date:05/12/2022 03:15:00 PM Scheduled Provider:Jairo Contreras MD [facility] Type:Cardiology Follow Up (FT) Future Scheduled Tests Radiology* CV Cardiovascular 04/07/22 [facility] Future Appointments Appointment Date:10/12/2022 01:45:00 PM Scheduled Provider:Jairo Contreras MD [facility] Appointment Type:Cardiology Follow Up (FT) Future Scheduled Tests Laboratory* HgbA1c 09/07/22 * TSH With T4fr Reflex 09/07/22 * CBC w/ Auto Diff 09/07/22 * Comprehensive Metabolic Panel 09/07/22 * Lipid Panel 09/07/22 Radiology* CV Cardiovascular 04/07/22 [facility] Future Appointments Appointment Date:05/07/2023 02:45:00 PM Scheduled Provider:Jairo Contreras MD Location:[facility] Appointment Type:Cardiology Follow Up (FT) Future Scheduled Tests Laboratory* HgbA1c 09/07/22 * TSH With T4fr Reflex 09/07/22 * CBC w/ Auto Diff 09/07/22 * Comprehensive Metabolic Panel 09/07/22 * Lipid Panel 09/07/22 Radiology* CV Cardiovascular 04/07/22 [facility] Future Appointments Appointment Date:01/11/2024 10:30:00 AM Scheduled Provider:Michelet Velázquez PA-C [facility] Type:Cardiology Follow Up (FT) [facility] Future Appointments Appointment Date:03/22/2023 09:00:00 AM Scheduled Provider: [facility] Type:CV Heart Cath (FT) Appointment Date:05/07/2023 02:45:00 PM Scheduled Provider:Jairo Contreras MD Location:[facility] Appointment Type:Cardiology Follow Up (FT) Future Scheduled Tests Laboratory* HgbA1c 09/07/22 * TSH With T4fr Reflex 09/07/22 * CBC w/ Auto Diff 09/07/22 * Comprehensive Metabolic Panel 09/07/22 * Lipid Panel 09/07/22 Radiology* CV Cardiovascular 03/22/23 * CV Cardiovascular 04/07/22 [facility] HospitalEvaluation noteNo InformationNortMercy [facility] Hospital [facility] Other Evaluation note* Diagnosis Onset Date Resolution Status Essential (primary) hypertension acuteFatigueacuteHigh cholesterolacuteLeft knee painacute [facility] Work Phone: Evaluation note* Diagnosis Onset Date Resolution Status Abdominal bloating acuteEssential (primary) hypertensionacuteFatigueacuteHigh cholesterolacuteLeft knee painacuteOSA (obstructive sleep apnea)acute [facility] Work Phone: Evaluation note* Diagnosis Onset Date Resolution Status Abdominal bloating acuteEssential (primary) hypertensionacuteFatigueacuteHigh cholesterolacuteLeft knee painacuteOSA (obstructive sleep apnea)acuteChronic low back painacuteLumbar radiculopathyacuteLeft knee painacute [facility] Work Phone: Evaluation note* Diagnosis Onset Date Resolution Status Coronary artery disease with angina pect beverly acuteLeft knee painacuteContact with and (suspected) exposure to covid-19 noneactiveSore throatnoneactive [facility] Work Phone: Evaluation note* Diagnosis Onset Date Resolution Status Admit Date Elevated glucose level acuteOctober 2024 8:49amEssential (primary) hypertensionacuteOctober 2024 8:49amHigh cholesterolacuteOctober 2024 8:49amScreening mammogram for breast canceracuteOctober 2024 8:49am [facility] Work Phone: History general Narrative - Reported* Type Description Date Medical History hypertension Medical HistoryCAROTID ARETERY STENOSISMedical HistoryHX OF TIA Medical HistoryBRADY CARDIASurgical HistoryCHOLECYSTECTOMY-2015Surgical HistoryC SECTIONSurgical HistoryTUBAL LIGATIONSurgical HistoryHYSTERECTOMYSurgical HistoryBSOHospitalization HistoryPT HAD TIAOCT 2015 [place] Other History of Present illness Narrative* The [...] medication regimen. She denies medication side effects. [facility] DO Work Phone: Hospital course Narrative No data available for this section [facility] Dis[facility] instructions No data available for this section [facility] HospitalProgress note No data available for this section [facility] HospitalReason for referral (narrative)No reason for referral information availableBarberton Citizens Hospital Work Phone: Summary Purpose Family History [...] section and content) DATE CREATED AUTHOR 09/22/2020 [facility] DATE CREATED AUTHOR AUTHOR'S ORGANIZ ATION 09/27/2020 [facility] DATE CREATED AUTHOR AUTHOR'S ORGANIZ ATION 03/20/2021 [employer] DATE CREATED AUTHOR AUTHOR'S ORGANIZ ATION 05/25/2021 [facility] DATE CREATED AUTHOR AUTHOR'S ORGANIZ ATION 07/11/2022 [facility] DATE CREATED AUTHOR AUTHOR'S ORGANIZ ATION 12/24/2024 [facility] Patient Care team informatio n (unrecognized [...] BE BASED ON THE PRIMARY CLINICAL RECORDS. [facility] [employer] [facility]. provides no warranty or guarantee of the accuracy or completeness of information in this document.
[2025-02-26 22:40] LABS: Alanine Aminotransferase 36 U/L (14-59); Albumin Globulin Ratio 1.0; Albumin Level 4.0 g/dL (3.4-5.0); Alkaline Phosphatase 150 U/L (46-116); Anion Gap 8.5; Aspartate Amino Transferase 21 U/L (15-37); Blood Urea Nitrogen 10.0 mg/dL (7.0-18.0); Calcium 9.6 mg/dL (8.5-10.1); Carbon Dioxide 31.0 mmol/L (21.0-32.0); Chloride 105 mmol/L (98-107); Estimated GFR (African America >60 (>=60 mL/min/1.73m^2); Estimated GFR (Non-African Ame >60 (>=60 mL/min/1.73m^2); Globulin 3.9 g/dL; Glucose 137 mg/dL (74-106); Potassium 3.5 mmol/L (3.5-5.1); Sodium 141 mmol/L (136-145); Total Protein 7.9 g/dL (6.4-8.2)
[2025-02-26 22:47] LABS: NT Pro B Type Natriuretic Pept 174.0 pg/mL (<=900.0)
--- NOTE | 2025-02-26 22:50 | XR_ITS ---
[facility] [place] [id number] Patient Name: ALEXA FERNANDEZ MRN: [id number] date: 1970 Sex: F Assigned Patient Location: ER Current Patient Location: ER Accession/Order Number: [id number] Exam Date: 02/26/2025 23:17 Report Date: 02/26/2025 23:51 At the request of: HARISH JI MD Procedure: XR chest 1V PA CHEST: CLINICAL HISTORY: CP, SOB COMPARISON: 03/18/2023 Stable cardiomediastinal silhouette. Lungs clear. No effusion or pneumothorax. XR/XR chest 1V IMPRESSION: Negative acute pleural-parenchymal disease Impression dictated by: Jonh Klein M.D. 02/26/2025 11:51 PM Dictation Location: [place] [address] Electronically authenticated by: [id number] Y Date: 02/26/2025 23:51
[2025-02-26] MEDS: HYDRALAZINE HCL 20 MG/ML VIAL 10 MG IVP (23:35)
[2025-02-27] VITALS (63 sets, daily range): BP systolic 86–180; BP diastolic 45–90; PULSE 58–83; TEMP 36.6–37.3; O2SAT 89–99; BMI 36.3
--- OUTSIDE RECORDS SUMMARY | 2025-02-27 01:00 | XMS_ITS | CCD ---
Author Organization [facility] Care Team Providers Care Benefits Processor Name Role Phone DARIUSZ KEEN Primary Care Unavailable UNKNOWN, PROVIDER Attending Unavailable UNKNOWN, PROVIDER Admitting Unavailable KEEN, DARIUSZ Referring Unavailable KEEN, DARIUSZ Referring Unavailable KEEN, DARIUSZ Primary Care Unavailable ERIN DUNN Attending Unavailable GURPREET PASTOR Admitting Unavailable CA Procedure Practitioner Unavailab ESA Cosme Surgeon Unavailable CA Procedure Practitioner Unavailab YOCASTA Phillip Surgeon Unavailable Dariusz Keen Unavailable Unavailable Unavailable DARIUSZ KEEN Primary Care Physician KEEN ., DR [...] Bennett Unavailable BENSON ROMERO Primary Care Physician [phone] Michelet Velázquez Attending Unavailable Gerry Sotelo Attending Unavailable Benson Romero MD Primary Care Provider Sofia Cortes CMA Attending Provider UnavailBenson Sifuentes MD Attending Provider Allergies Allergy ClassificationReported Allergen(s)Allergy TypeDate of OnsetReaction(s) FacilityAmino Acids (1 source)Amino AcidsDrug Gaujahs87-88-0110[facility] Repository (17 sources)Lisinopril; Translations: [Lisinopril TABS]Drug AllergyFre[facility] (1 source)Adhesive bandageDrug allergy (disorder)93-13-1950[facility] Repository (2 sources)Amino Acids; Translations: [lisinopril]Drug AllergyThe [facility] (6 sources)hydrALAZINE; Translations: [hydralazine]Drug AllergyUnknown (qualifier value)[facility] (6 sources)topiramate; Translations: [topiramate]Drug AllergyUnknown (qualifier value)[facility] Medications Current Medications MedicationDrug Class(es)DatesSig (Normalized)Sig (Original)amitriptyline hydrochloride 75 mg oral tablet (20 sources)Tricyclic AntidepressantStart: 12-27-2020 End: 55-01-9565nlmr 1 tablet by mouth once dailyAmitriptyline 75 mg tablet Active 75 MG PO Daily November 20, 2024 2:44pm Complies with drug therapy aspirin 81 mg delayed release oral tablet (20 sources)Platelet Aggregation Inhibitor, Nonsteroidal Anti-inflammatory Drug Start: 02-07-2024 End: 93-78-8091ittd 1 tablet by mouth once dailyAspirin 81 mg tablet,delayed release (DR/EC) Active 0 .ROUTE .COMPLEX November 14, 2024 8:13am TAKE 1 TABLET BY MOUTH EVERY DAY Complies with drug therapyStart: 12-27-2020 End: 96-89-2504fmnb 1 tablet by mouth once dailyAspirin 81 mg tablet,delayed release (/EC) Discontinued 81 MG PO Daily December 27, 2020 12:00am February 07, 2024 5:39pmatenolol 50 mg oral tablet (20 sources)beta-Adrenergic BlockerStart: 96-91-7193ljbm 1 tablet by mouth once dailyAtenolol 50 mg tablet Active 0 .ROUTE .COMPLEX October 30, 2024 3:43pm TAKE 1 TABLET BY MOUTH EVERY DAY Complies with drug therapyStart: 48-81-8989dndl 1 tablet by mouth twice dailyatenolol 50 mg Tab 50 mg = 1 tab(s), Oral, BID, # 180 tab(s), Refills(s) 3, Pharmacy: [facility]/pharmacy #[id number], 164, cm, 05/12/22 15:46:00 EST, Height/Length Dosing, 90, kg, 05/12/22 15:46:00 EST, Weight Dosing Start Date: 08/18/22 Status: OrderedStart: 12-27-2020 End: 38-77-4567wfhl 1 tablet by mouth once dailyAtenolol 50 mg tablet Discontinued 50 MG PO Daily May 10, 2024 4:39pm October 30, 2024 3:43pm atorvastatin 40 mg oral tablet (20 sources)HMG-CoA Reductase InhibitorStart: 12-27-2020 End: 55-61-4786etnl 1 tablet by mouth once dailyAtorvastatin 40 mg tablet Active 40 MG PO Daily December 25, 2024 12:30pm Complies with drug therapy cholecalciferol 0.125 mg oral tablet (12 sources)Vitamin DStart: 34-46-8472uqtz 1 tablet by mouth once daily Cholecalciferol (Vitamin D3) (Vitamin D3) 125 mcg (5,000 unit) Tablet Active 125 MCG PO Daily December 27, 2020 12:00am Complies with drug therapyVitamin D3 25 MCG (1000 UT) Oral Capsule TAKE DIRECTED. Quantity: 0 Refills: 0 Ordered: 19-Mar-2021 DO Activecitalopram 40 mg oral tablet (20 sources)Serotonin Reuptake InhibitorStart: 10-22-2023 End: 39-90-5150fibv 1 tablet by mouth once dailyCitalopram 40 mg tablet Active 0 .ROUTE .COMPLEX 90 November 14, 2024 8:13am TAKE 1 TABLET BY MOUTHEVERY DAY Complies with drug therapyStart: 11-35-6745scvy 1 tablet by mouth once daily citalopram 40 mg Tab See Instructions, TAKE 1 TABLET BY MOUTH EVERY DAY, # 90 tab(s), Refills(s) 0,Pharmacy: [facility] STORE [id number], 164, cm, 03/22/23 7:23:00 EST, Height/Length Dosing, 92.3, kg, 03/22/23 7:23:00 EST, Weight Dosing Start Date: 07/19/23 Status: OrderedStart: 12-38-7520lyjg 1 tablet by mouth once daily citalopram 40 mg Tab See Instructions, TAKE 1 TABLET BY MOUTH EVERY DAY, # 90 tab(s), Refills(s) 0,Pharmacy: [facility] STORE [id number], 164, cm, 11/12/22 13:53:00 EDT, Height/Length Dosing, 92.3, kg, 11/12/2312:53:00 EDT, Weight Dosing Start Date: 02/16/23 Status: OrderedStart: 12-27-2020 End: 56-52-2832olbn 1 tablet by mouth once dailyCitalopram 20 mg tablet Discontinued 20 MG PO Daily December 27, 2020 12:00am October 22, 2023 10:50am cloNIDine hydrochloride 0.2 mg oral tablet (20 sources)Central alpha-2 Adrenergic AgonistStart: 92-57-3817tmxs 1 tablet by mouth twice dailyClonidine Hcl 0.2 mg tablet Active 0 .ROUTE .COMPLEX 180 May 30, 2024 4:52pm TAKE 1 TABLET BY MOUTH TWICE A DAY Complies with drug therapyStart: 92-08-0003dyfb 1 tablet by mouth twice dailycloNIDine 0.3 mg Tab 0.3 mg = 1 tab(s), Oral, BID, # 180 tab(s), Refills(s) 3, Pharmacy: [facility]/pharmacy #[id number], 164, cm, 09/24/22 12:51:00 EDT, Height/Length Dosing, 91.4, kg, 09/24/22 12:51:00 EDT, Weight Dosing Start Date: 09/24/22 Status: OrderedStart: 48-05-1540xamb 1 tablet by mouth twice dailycloNIDine 0.1 mg tab 0.1 mg = 1 tab(s), Oral, BID, # 60 tab(s), Refills(s) 3, Pharmacy: [facility]/pharmacy #[id number], 164, cm, 04/02/22 13:47:00 EST, Height/Length Dosing, 94.2, kg, 04/02/22 13:47:00 EST, Weight Dosing Start Date: 04/02/22 Status: OrderedStart: 12-27-2020 End: 42-53-9903sfbl 1 tablet by mouth twice dailyClonidine Hcl 0.2 mg tablet Discontinued 0.2 MG PO Twice daily 180 February 29, 2024 10:42am May 30, 2024 4:52pmtake 2 tablets by mouth at bedtimecloNIDine HCl - 0.2 MG Oral Tablet TAKE 2 TABLETS AT BEDTIME. Quantity: 0 Refills: 0 Ordered: 19-Mar-2021 DO ActiveDilTIAZem (Eqv-Dilacor XR) 120 mg/24 hours oral capsule, extended release (2 sources)Start: 05-95-2194RodACAZou (Eqv-Dilacor XR) 120 mg/24 hours oral capsule, extended release 120 mg = 1 cap(s), Oral, Daily, # 90 cap(s), Refills(s) 1, Pharmacy: [facility]/pharmacy #[id number], 160, cm, 09/07/22 18:32:00 EDT, Height/Length Dosing, 91.2, kg, 09/07/22 18:32:00 EDT, Weight Dosing Start Date: 09/07/22 Status: OrderedErgocalciferol (3 sources)Provitamin D2 CompoundStart: 24-88-4948Hrnvhml D2 Refills(s) 0 Start Date: 04/02/22 Status: Orderedfamotidine 40 mg oral tablet (20 sources)Histamine-2 Receptor AntagonistStart: 10-21-2023 End: 35-21-6488zdsi 1 tablet by mouth once daily at bedtimeFamotidine 40 mg tablet Active 0 .ROUTE .COMPLEX 90 November 20, 2024 12:23pm TAKE 1 TABLET BY MOUTH EVERYDAY AT BEDTIME Complies with drug therapyStart: 12-27-2020 End: 62-65-5238Wirueixfzg 40 mg tablet Discontinued 40 MG PO As Directed December 27, 2020 12:00am October 21, 2023 8:47amhydroCHLOROthiazide 12.5 mg oral tablet (13 sources)Thiazide DiureticStart: 47-43-7111iaak 1 tablet by mouth once daily hydrochlorothiazide 12.5 mg Tab 12.5 mg = 1 tab(s), Oral, Daily, # 30 tab(s), Refills(s) 2, Pharmacy: [facility]/pharmacy #[id number], 164, cm, 10/11/23 13:23:00 EDT, Height/Length Dosing, 94.6, kg, 10/11/23 13:23:00 EDT, Weight Dosing Start Date: 10/11/23 Status: OrderedStart: 12-27-2020 End: 64-30-1108Pkhtanlbvcczseahgac 25 mg tablet Discontinued 25 MG PO As Directed December 27, 2020 12:00am February 29, 2024 9:48amNitro Sublingual 0.4 (2 sources)Nitro Sublingual 0.4 for 90 days Activenitroglycerin 0.4 mg sublingual tablet (20 sources)Nitrate VasodilatorStart: 06-16-2024 End: 61-80-0528Hbzykibnaaqjf 0.4 mg tablet, sublingual Active 0 .ROUTE .COMPLEX December 15, 2024 11:37am PLACE 1 TABLET UNDER TONGUE EVERY 5 MINS, UP TO 3 DOSES NEEDED FOR CHEST PAIN DIRECTED Complies with drug therapyStart: 12-27-2020 End: 37-21-1179Fdngiqqfekapc 0.4 mg tablet, sublingual Discontinued 0.4 MG SUBLINGUAL As Directed as needed for Chest Pain October 11, 2023 10:09am June 16, 2024 8:50amNitroglycerin 0.[address] 1 TABLET UNDER TONGUE EVERY 5 MINS, UP TO 3 DOSES NEEDED FOR CHEST PAIN DIRECTED for 30 ActivePOLYETHYLENE GLYCOL 3350 (4 sources)Osmotic LaxativeStart: 46-52-4580IrguQbo - 17 grams Orally daily for 1 month August, Tubrjg36 hr ranolazine 500 mg extended release oral tablet (17 sources)Anti-anginalStart: 32-53-3766bgkk 1 tablet by mouth twice daily ranolazine 500 mg oral ER Tab See Instructions, TAKE 1 TABLET BY MOUTH TWICE A DAY, # 180 tab(s), Refills(s) 1, Pharmacy: [facility] STORE [id number], 164, cm, 03/22/23 7:23:00 EST, Height/Length Dosing, 92.3, kg, 03/22/23 7:23:00 EST, Weight Dosing Start Date: 07/19/23 Status: OrderedStart: 76-68-2074mhft 1 tablet by mouth twice dailyranolazine 500 mg oral ER Tab See Instructions, TAKE 1 TABLET BY MOUTH TWICE A DAY, # 180 tab(s), Refills(s) 1, Pharmacy: [facility] STORE [id number], 164, cm, 11/12/22 13:53:00 EDT, Height/Length Dosing, 92.3, kg, 11/12/22 13:53:00 EDT, Weight Dosing Start Date: 02/16/23 Status: OrderedStart: 85-20-6519shef 1 tablet by mouth twice dailyranolazine 500 mg oral ER Tab 500 mg = 1 tab(s), Oral, BID, # 180 tab(s), Refills(s) 1, Pharmacy: [facility]/pharmacy #[id number], 160, cm, 09/07/22 18:32:00 EDT, Height/Length Dosing, 91.2, kg, 09/07/22 18:32:00EDT, Weight Dosing Start Date: 09/07/22 Status: OrderedStart: 62-07-7779mnxn 1 tablet by mouth twice dailyranolazine 500 mg oral ER Tab 500 mg = 1 tab(s), Oral, BID Start Date: 04/02/22 Status: OrderedStart: 26-19-7728davr 1 tablet by mouth every twelve hoursRanolazine [...] (20 sources)Angiotensin 2 Receptor BlockerStart: 02-15-2024 End: 41-34-2837zqtr 1 tablet by mouth once dailyValsartan 320 mg tablet Active 0 .ROUTE .COMPLEX 90 November 30, 2024 12:19pm TAKE 1 TABLET BY MOUTH EVERY DAY Complies with drug therapyStart: 12-27-2020 End: 15-61-2753Hsehwkqdf 320 mg tablet Discontinued 320 MG PO As Directed December 27, 2020 12:00am February 15, 2024 11:50amVitamin D-3 1000 UNIT (4 sources)take 1 capsule by mouth once dailyVitamin D-3 1000 UNIT 1 capsule Orally Once a day Active Completed/Discontinued Medications MedicationDrug Class(es)DatesSig (Normalized)Sig (Original)amLODIPine 5 mg oral tablet (6 sources)Dihydropyridine Calcium Channel BlockerStart: 05-13-2024 End: 32-72-7137dnim 1 tablet by mouth once dailyAmlodipine 5 mg tablet Discontinued 5 MG PO Daily May 13, 2024 1:00am May 13, 2024 10:08am Start: 56-28-1309kjgl 1 tablet by mouth once dailyamLODIPine 5 mg Tab 5 mg = 1 tab(s), Oral, Daily, # 90 tab(s), Refills(s) 3, Pharmacy: [facility]/pharmacy#[id number], 164, cm, 03/19/23 13:02:00 EST, Height/Length Dosing, 95.1, kg, 03/19/23 13:02:00 EST, Weight Dosing Start Date: 03/19/23 Status: Orderedamoxicillin 500 mg oral capsule (2 sources)Penicillin-class AntibacterialStart: 05-13-2024 End: 27-04-3397ygtz 1 capsule by mouth twice dailyAmoxicillin 500 mg capsule Discontinued 500 MG PO Twice daily 22 01May 13, 2024 1:00am May 17, 2024 10:21ambenzonatate 200 mg oral capsule (2 sources)Non-narcotic AntitussiveStart: 05-17-2024 End: 57-37-4939Nfbajtkvbdx 200 mg capsule Discontinued 200 MG PO 2-3 TIMES PER DAY as needed for cough 2024 1:00am January 10, 2025 8:54am bumetanide 1 mg oral tablet (20 sources)Loop DiureticStart: 12-27-2020 End: 27-32-2808Sviwdkhlba 1 mg tablet Discontinued 1 MG PO .prn August 31, 2023 8:45am February 29, 2024 9:47amclopidogrel 75 mg oral tablet (20 sources)P2Y12 Platelet InhibitorStart: 12-27-2020 End: 52-61-2390hnqj 1 tablet by mouth once dailyClopidogrel 75 mg tablet Discontinued 75 MG PO Daily 90 July 23, 2023 2:59pm February 29, 2024 10:43amcyproheptadine hydrochloride 4 mg oral tablet (12 sources)Start: 12-27-2020 End: 44-52-9668Htzebjnkitfdhu 4 mg tablet Discontinued 4 MG PO As Directed as needed for Headache December 27, 2020 12:00am February 29, 2024 9:47amtake 2 tablets by mouth every eight hoursCyproheptadine HCl - 4 MG Oral Tablet TAKE 2 TABLET Every 8 hours Quantity: 0 Refills: 0 Ordered: 19-Mar-2021 DO Active diclofenac sodium 0.01 mg/mg topical gel (5 sources)Nonsteroidal Anti-inflammatory DrugStart: 53-08-4015heifqgrnis topical 1% gel 2 gm, Topical, TID, Refill(s) 0 Start Date: 09/07/22 Status: OrdereddilTIAZem hydrochloride 120 mg oral tablet (16 sources)Calcium Channel BlockerStart: 02-29-2024 End: 71-43-0796vjyj 1 tablet by mouth once dailyDiltiazem Hcl 120 mg tablet Discontinued 120 MG PO Daily February 29, 2024 1:00am February 29, 2024 9:48am FreeTextSi tablet once a day; Note: Source Status: Taking; Provider: Nick Billingsley ( )Start: 75-78-6305ylkw 1 capsule by mouth once dailyDilt-XR 120 MG Oral Capsule Extended Release 24 Hour TAKE 1 CAPSULE BY MOUTH EVERY DAY Quantity: 90Refills: 0 Ordered: 10-Apr-2021 Navdeep German DO Start : 10-Apr-2021 Activetake 1 tablet by mouth every twenty-four hoursdilTIAZem HCl 120 MG 1 tablet once a day Jghijr76 hr isosorbide mononitrate 60 mg extended release oral tablet (20 sources)Nitrate VasodilatorStart: 12-27-2020 End: 14-11-3793Kqgpuwqghe Mononitrate 60 mg tablet extended release 24 hr Discontinued 60 MG PO As Directed December 27, 2020 12:00am January 10, 2025 8:55amtake 1 tablet by mouth every twenty-four hoursIsosorbide Mononitrate ER 60 MG 1 tablet once a day Activemeloxicam 15 mg oral tablet (9 sources)Nonsteroidal Anti-inflammatory DrugStart: 11-22-2023 End: 65-95-9810gydr 1 tablet by mouth once dailyMeloxicam 15 mg tablet Discontinued 0 .ROUTE .COMPLEX November 22, 2023 6:36am February 29, 2024 9:49am TAKE 1 TABLET BY MOUTH EVERY DAYStart: 09-14-2023 End: 17-71-3282vkot 1 tablet by mouth once dailyMeloxicam 15 mg tablet Discontinued 15 MG PO Daily September 14, 2023 12:00am November 22, 2023 6:36am 24 hr NIFEdipine 60 mg extended release oral tablet (7 sources)Dihydropyridine Calcium Channel BlockerStart: 12-27-2020 End: 88-87-2919Wazswrtzjl 60 mg tablet extended release Discontinued 60 MG PO As Directed December 27, 2020 12:00am February 29, 2024 9:49amondansetron 4 mg disintegrating oral tablet (2 sources)Serotonin-3 Receptor AntagonistStart: 05-17-2024 End: 48-79-0389akro 1 tablet by mouth every eight hours as needed for nausea and vomitingOndansetron 4 mg tablet,disintegrating Discontinued 4 MG PO Q8H as needed for nausea and vomiting May 17, 2024 1:00am January 10, 2025 8:56amoseltamivir 75 mg oral capsule (3 sources)Neuraminidase InhibitorStart: 05-13-2024 End: 69-00-2467dcun 1 capsule by mouth twice dailyOseltamivir (Tamiflu) 75 mg capsule Discontinued 75 MG PO Twice daily 10 May 13, 2024 1:00am January 10, 2025 8:56ampotassium chloride 20 meq extended release oral tablet (18 sources)Start: 54-77-4521anhp 1 tablet by mouth oncepotassium chloride 20 mEq ER Tab 40 mEq = 2 tab(s), Oral, Once, Take one time dose in preparation for cardiac cath, # 2 tab(s), Refills(s) 0, Pharmacy: [facility]/pharmacy #[id number], 164, cm, 04/08/22 9:20:00 EST, Height/Length Dosing, 94.2, kg, 04/08/22 9:20:00 EST, Weight Dosing Start Date: 04/08/22 Status: OrderedStart: 12-27-2020 End: 76-56-1119Ddkecjoat Chloride 10 mEq tablet extended release Discontinued 10 MEQ PO As Directed December 27, 2020 12:00am February 29, 2024 9:49amtake 1 tablet by mouth at mealtime as neededKlor-Con M10 10 MEQ 1 tablet with food Orally prn w bumex Activespironolactone 25 mg oral tablet (12 sources)Aldosterone AntagonistStart: 02-29-2024 End: 37-13-5666bwwg 1 tablet by mouth once dailySpironolactone 25 mg tablet Discontinued 25 MG PO Daily February 29, 2024 1:00am January 10, 2025 8:56am FreeTextSi tablet once a day; Note: Source Status: Taking; Provider: Nick Billingsley ( )Start: 59-59-1497gkpv 1 tablet by mouth once daily spironolactone 25 mg Tab 25 mg = 1 tab(s), Oral, Daily, # 60 tab(s), Refills(s) 3, Pharmacy: [facility]/pharmacy #[id number], 164, cm, 09/24/22 12:51:00 EDT, Height/Length Dosing, 91.4, kg, 09/24/22 12:51:00 EDT,Weight Dosing Start Date: 09/24/22 Status: Ordered Problems Active Problems Problem ClassificationProblemDateDocumented DateEpisodic/ChronicAbdominal pain (4 sources)Abdominal pain; Translations: [Unspecified abdominal pain]Episodic Acute and chronic tonsillitis (3 sources)Acute bacterial tonsillitis; Translations: [Acute tonsillitis due to other specified organisms]61-20-9832BdvklqscRmlrfnn disorders (6 sources)Anxiety disorder, unspecified; Translations: [Anxiety]Onset: 173011-56-6877QsphuljBdjpilp and circulatory congenital anomalies (10 sources)Premature closure of foramen ovale; Translations: [Other bulbus cordis anomalies and anomalies of cardiac septal closure]06-41-7242Zsutimo Cardiac dysrhythmias (10 sources)Tachycardia; Translations: [Tachycardia, unspecified]08-14-2022 EpisodicCongestive heart failure; nonhypertensive (5 sources)Congestive heart gtvxolu10-89-8040JblaoumHfmygsdw atherosclerosis and other heart disease (20 sources)History of myocardial infarction; Translations: [Old myocardial infarction]Onset: 805672-15-1231RjbldvqKdtbjjbzdn and other anemia (5 sources)Zhilpa74-37-7612XvmvuulzQdjdofrpro and other anemia (4 sources)Iron deficiency anemia; Translations: [Iron deficiency anemia, unspecified]EpisodicDeficiency and other anemia (1 source)Iron deficiency anemia, unspecifiedEpisodicDiabetes mellitus with complications (3 sources)Hyperglycemia due to type 2 diabetes mellitus; Translations: [Type 2 diabetes mellitus with hyperglycemia]47-77-2883TzkrlocVljubebc mellitus without complication (12 sources)Hyperglycemia, unspecified; Translations: [Other abnormal glucose] Onset: 35-80-3425KtodgsrgQrekqzhgr of lipid metabolism (20 sources)Hyperlipidemia; Translations: [Other and unspecified hyperlipidemia] Onset: 84-59-0129ZbeehmiBkmtjol on above:Problem List clean-up per request of Phys. EHR CmteEssential hypertension (20 sources)Benign essential hypertension; Translations: [Benign essential hypertension]Onset: 56-12-3173LhlolzgFjuobqxdw and duodenitis (4 sources)Gastritis; Translations: [Gastritis, unspecified, without bleeding] EpisodicGastrointestinal hemorrhage (7 sources)Hematochezia; Translations: [Melena]79-05-5910IkfaugryFxpcwvk on above:Problem List clean-up per request of Phys. EHR CmteHeart valve disorders (5 sources)Mitral valve pppomntbn24-92-7902UuuwndgOmkowsrwzdvw with complications and secondary hypertension (1 source)Hypertensive urgency; Translations: [HYPERTENSIVE URGENCY]Onset: 59-02-7475ZhqwjdrVfpaiwaawrhwr and screening for infectious disease (1 source)Contact with or exposure to other viral diseases; Translations: [Exposure to 2019 novel coronavirus]98-13-4172VvhzqehpTstqglxcn (5 sources)Influenza due to Influenza A virus; Translations: [Influenza due to other identified influenza virus with other respiratory manifestations] 18-14-1869JnuwzsxnDdngsti and fatigue (16 sources)Fatigue; Translations: [Other fatigue]11-88-4483SjklgkiqDnkxzeq (5 sources)Pityriasis vmvlyahjkf55-80-9670AqmnsgjmWopprg and vomiting (4 sources)Nausea; Translations: [Nausea]EpisodicNonspecific chest pain (10 sources)Chest pain; Translations: [Chest pain, unspecified]Onset: 04-07-2022 EpisodicNutritional deficiencies (6 sources)Vitamin D deficiency, unspecified; Translations: [Vitamin D deficiency]Onset: 282139-03-3753PnfnzyaOwnbrfgbnmhvju (5 sources)Bilateral osteoarthritis of ofqft54-47-4682GvpheoeXvmym endocrine disorders (4 sources)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, simple virilizing type; Translations: [Adrenogenital disorder,unspecified]ChronicOther gastrointestinal disorders (4 sources)Irritable bowel syndrome; Translations: [Irritable bowel syndrome without diarrhea]ChronicOther gastrointestinal disorders (4 sources)Swollen abdomen; Translations: [Abdominal distension (gaseous)] EpisodicOther gastrointestinal disorders (4 sources)Constipation alternates with diarrhea; Translations: [Other specified symptoms and signs involving the digestive system and abdomen]EpisodicOther gastrointestinal disorders (6 sources)Abdominal bloating; Translations: [Abdominal distension (gaseous)] 95-72-3539JgnsgupaWhayp gastrointestinal disorders (4 sources)Abdominal distension (gaseous); Translations: [Flatulence, eructation, and gas pain]41-01-0137QzinmrcnPhfph lower respiratory disease (1 source)Dyspnea; Translations: [Shortness of breath]Onset: 41-48-8610Lallibwv Other nervous system disorders (3 sources)Facial paresthesia; Translations: [Paresthesia of skin]02-29-2024 EpisodicOther nervous system disorders (2 sources)Paresthesia of skin; Translations: [Disturbance of skin sensation] 83-15-7009WnckfvnlRptzg non-traumatic joint disorders (4 sources)Pain in joints of left hand; Translations: [PAIN IN JOINTS OF LEFT HAND]Onset: 09-53-4537ZtdxsyobFycwq non-traumatic joint disorders (12 sources)Pain in left knee; Translations: [Left knee pain]36-23-9878Blhoefjs Other nutritional; endocrine; and metabolic disorders (5 [...] for screening mammogram for malignant neoplasm of breast]28-64-5786FzavamitHdfqj upper respiratory infections (4 sources)Acute pharyngitis, unspecified; Translations: [Acute pharyngitis] 09-65-1237MbvhrbhoSubipsrduq and visceral atherosclerosis (5 sources)Arteriosclerotic vascular ppbcevz93-94-8983ZwrvtjuMmiomhzc codes; unclassified (6 sources)Obstructive sleep apnea syndrome; Translations: [Obstructive sleep apnea (adult) (pediatric)]35-71-3530HtpaythGvzjoixy codes; unclassified (2 sources)Obstructive sleep apnea (adult) (pediatric); Translations: [Obstructive sleep apnea (adult)(pediatric)]79-14-4965QhvtwgyDkfdndskiow; intervertebral disc disorders; other back problems (4 sources)Unspecified inflammatory spondylopathy, cervical region; Translations: [UNS INFLAM SPONDYLOPATHIES CERV RGN]Onset: 94-66-3072Dyxrita Spondylosis; intervertebral disc disorders; other back problems (14 sources)Lumbar radiculopathy; Translations: [Radiculopathy, lumbar region] 96-43-1791TezxhwfdQnesaquux cerebral ischemia (5 sources)Transient cerebral tzqwboyj90-87-7632QuqmrmtByesa infection (3 sources)Disease caused by 2019-nCoV; Translations: [COVID-19]12-28-2023 Episodic Past or Other Problems Problem ClassificationProblemDateDocumented DateEpisodic/ChronicCoagulation and hemorrhagic disorders (1 source)Hemorrhagic condition, unspecified; Translations: [HEMORRHAGIC CONDITION UNSPECIFIED]Onset: 45-24-8353GjiqszpcBytuuecavw and other anemia (4 sources)Anemia, unspecified; Translations: [ANEMIA UNSPECIFIED]Onset: 62-37-6004UdmspssxCiznzytup of teeth and jaw (5 sources)Other specified disorders of teeth and supporting structures; Translations: [Periapical abscess without sinus]Onset: 36-62-5654ClphseraIjfgz aftercare (1 source)Other intermediate (current) drug therapy; Translations: [OTH SHELTER CURRENT DRUG THERAPY]Onset: 37-47-3659FjprzwpdWmxqz aftercare (1 source)residential (current) use of aspirin; Translations: [LOADMASTER CURRENT USE OF ASPIRIN]Onset: 36-05-9126LpjmbgeoPneyy aftercare (1 source)residential (current) use of oral hypoglycemic drugs; Translations: [SHELTER USE ORAL HYPOGLYCEMIC DX]Onset: 83-84-4668BsipliyfRbdhj circulatory disease (1 source)Personal history of transient ischemic attack (TIA), and cerebral infarction without residual deficits; Translations: [PERS HX TIA AND CI NO RESID DEFICIT]Onset: 10-70-1028PxczjdkeGbkny connective tissue disease (1 source)Other muscle spasm; Translations: [OTHER MUSCLE SPASM]Onset: 99-78-6552JzrpdaypKxktbbhz codes; unclassified (1 source)Acquired absence of other specified parts of digestive tract; Translations: [ACQ ABSENCE OTH PART DIGESTV TRACT]Onset: 78-25-9381Sllgmwqk Unclassified (5 sources)Never smoked tobacco; Translations: [Never a smoker] Results Test NameValueInterpretationReference RangeFacilityED Clinical Summaryon [id number] Clinical SummaryED Clinical Summary [address] [address] ED Clinical Summary Person Information Name: ALEXA CAREY/[facility] Age: 54 Years : 1970 Sex: Female [...] 12/16/2024 12:20:41 12/16/2024 12:20:41 12/16/2024 12:20:41 ADDRESS: [address] [place] [id number] PHYS DOC NOTES: MEDICAL INFORMATION: Prescriptions Given: [...] Follow up: With: Address: When: BENSON ROMERO [address] [place] [id number] beRecruited (1) In 3 days 12/19/2024 Comments: Follow-up with your dentist DIAGNOSIS: Bleeding post tooth extraction; Post surgical complicationNoCasper Stoner Medical CenterED Note-Physicianon [id number] Note-PhysicianED Note-Physician Basic Information Time Seen: Michael Espino PA-C 12/16/2024 11:14 Chief Complaint Pt states tooth extraction on 12/08. Pt states that she was at the [facility] for cauterization after the extraction d/t [...] NICK In 3 days 12/19/[address] [place] [address] Business (1) Additional Instructions: Follow-up with your [...] made to ensure accuracy, however, inadvertently computerized fabrication supervisor mistakes may be present. Appropriate healthcare PPE [...] Oral, Daily atenolol 50 (more content not included)...[facility] Comment on above:Result Comment: Electronically Signed By: Michael Espino PA-C\.br\Date and Time Signed: 12/17/2511:31 EDT\.br\Electronically Co-Signed By: Gerry Sotelo MD\.br\Date and Time Co-Signed: 12/16/24 20:19 EDTED Patient Summaryon 55-37-8728MG Patient SummaryED Patient Summary [place] [address] Patient Discharge Instructions Person Information Name: ALEXA CAREY Age: 54 Years Arrival Date: 12/16/2024 11:11:44 Discharge Diagnosis: Bleeding post tooth extraction; Post surgical complication Primary Care Physician: BENSON ROMERO MD Provider Information Primary Provider: Gerry Sotelo MD [employer] Hand:Michael Espino PA-C The exam and treatment you received in the Emergency Department were for an urgent problem and are not intended as complete care. It is important that you follow up with a doctor, nurse practitioner,or physician???s assistant manager bilingual for ongoing care. If your symptoms become worse or you do not improve asexpected and you are unable to reach your usual health care provider, you should return to the Emergency Department. We are available 24 hours a day. ALEXA CAREY has been given the following list of patient education materials, prescriptions and follow-up instructions: Follow-up Instructions: With: Address: When: BENSON ROMERO [address] [place], [place] [id number] Business (1) In 3 days 12/19/2024 Comments: [...] opioids can be used to help relieve tnnwscia-fz-wyuaeo pain and are often prescribed following a [...] abuse and overdose. ? (more content not included)...[facility] CenterInfluenza virus A and B and SARS-CoV-2 (COVID-19) RNA panel - Respiratory system specon 95-83-9437Kmebzitbp virus A and B RNA and SARS-CoV-2 (COVID-19) N gene panel RAJINDER+probe (Resp)Influenza virus A and B and SARS-CoV-2 (COVID-19) RNA panel - Respiratory system specKettering Health HamiltonLaboratory - Microbiology and Antimicrobial susceptibilityon 86-45-2529TMCK-CoV-2 (COVID-19) RNA RAJINDER+probe Ql (Unsp spec)NegativeKettering Health HamiltonNo Panel InformationOrdered By: Chelsy Palacios on 43-44-2355Clsqx Strep (POC)[facility] HamiltonNo Panel Informationon 85-99-7671DMU Influenza B (RAJINDER) NegativeKettering Health HamiltonBasophils Auto (Bld) [#/Vol]on 02-31-6834Qxzsrhpaw (Bld) [#/Vol]Automated basophil count0.0-0.1FFayette County Memorial HospitalBasophils/100 WBC Auto (Bld)on 51-40-9334Zkrfrlise/100 WBC (Bld)Automated basophil %0.2-2.0[facility] Eosinophils/100 WBC Auto (Bld)on 22-94-6431Ichdpieisid/100 WBC (Bld)Automated eosinophil %0.9-7.0[facility] HamiltonErythrocyte distribution width Auto (RBC) [Ratio]on 96-77-0266Yzeazidymic distribution width (RBC) [Ratio]Erythrocyte distribution width [Ratio] by Automated count11.0-15.0 [facility] HamiltonEstimated glomerular filtration rate (GFR) non- Americanon 72-15-7453LFY/1.73 sq M.predicted among non-blacks MDRD (S/P/Bld) [Vol rate/Area]Estimated glomerular filtration rate (GFR) non- AmericanLow>=60 mL/min/1.73m 2FFayette County Memorial HospitalGlobulin Calc (S) [Mass/Vol]on 61-87-5685Rtcupjmd (S) [Mass/Vol]Serum globulin measurement by calculation (mass/volume)[facility] HamiltonGlucose mean value [Mass/volume] in Blood Estimated from glycated hemoglobinon 88-23-2415Bebfdvc glucose Estimated from glycated hemoglobin (Bld) [Mass/Vol]Glucose mean value [Mass/volume] in Blood Estimated from glycated hemoglobinKettering Health HamiltonHematocrit Auto (Bld) [Volume fraction]on 06-18-7997Zxtswmzcky (Bld) [Volume fraction]Hematocrit [Volume Fraction] of Blood by Automated count 36.0-48.0[facility] HamiltonHemoglobin [Mass/volume] in Bloodon 61-94-6261Jycalkijth (Bld) [Mass/Vol]Hemoglobin [Mass/volume] in Blood12.0-16.0 [facility] HamiltonLaboratory - Chemistry and Chemistry - challengeon 43-36-8552Aecsqrj [Mass/Vol]3.8 g/dL3.4-5.0[facility] HamiltonALP [Catalytic activity/Vol]136 U/KOmwl18-602KiwighrsiKettering Health HamiltonALT [Catalytic activity/Vol]27 U/D00-39SnnhmxpeaKettering Health HamiltonAST [Catalytic activity/Vol]19 U/C51-42ZtdfjjuceKettering Health Hamilton Bilirubin [Mass/Vol]0.8 mg/dL0.2-1.0[facility] HamiltonCalcium [Mass/Vol]9.6 mg/dL8.5-10.1FFayette County Memorial HospitalChloride [Moles/Vol] 107 mmol/L19-917GhkiilygaKettering Health HamiltonCO2 [Moles/Vol]32.0 mmol/L 21.0-32.0[facility] HamiltonCreatinine [Mass/Vol]1.07 mg/dLHigh 0.55-1.02[facility] HamiltonGFR/1.73 sq M.predicted MDRD (S/P/Bld) [Vol rate/Area]mL/min/{1.73_m2}>=60 mL/min/1.73m 2FFayette County Memorial HospitalGlucose [Mass/Vol]129 mg/sUFous32-668JocxerogiKettering Health Hamilton Potassium [Moles/Vol]3.4 mmol/LLow3.5-5.1FFayette County Memorial Hospital Protein [Mass/Vol]7.8 g/dL6.4-8.2FAdams County Regional Medical Centerodium [Moles/Vol]145 mmol/L654-133VpjdhubslKettering Health HamiltonTSH Qn2.270 m[IU]/L 0.358-3.740[facility] HamiltonUrea nitrogen [Mass/Vol]10.0 mg/dL 7.0-18.0[facility] HamiltonUrea nitrogen/Creatinine [Mass ratio] 9.3 mg/mgKettering Health HamiltonLaboratory - Hematology and Cell countson 53-19-3790SpH7m (Bld) [Mass fraction]6.3 %High4.5-6.2FFayette County Memorial HospitalComment on above:ADA RECOMMENDED LIMIT 4.0 - 6.0ADA THERAPEUTIC TARGET < 7.0ACTION SUGGESTED> 7.0Immature granulocytes/100 WBC (Bld)0.2 %0.0-0.5 [facility] HamiltonLeukocytes [#/volume] corrected for nucleated erythrocytes in Blood by Automated counon 10-35-8080KQG corrected for nucl RBC Auto (Bld) [#/Vol]Leukocytes [#/volume] corrected for nucleated erythrocytes in Blood by Automated coun4.0-11.0[facility] HamiltonLymphocytes Auto (Bld) [#/Vol]on 96-41-0789Nkqqaoitute (Bld) [#/Vol]Lymphocytes [#/volume] in Blood by Automated count1.2-3.8[facility] HamiltonLymphocytes/100 WBC Auto (Bld)on 43-49-6938Ihumhwroohj/100 WBC (Bld)Lymphocytes/100 leukocytes in Blood by Automated count20.5-60.0[facility] HospitalH Auto (RBC) [Entitic mass]on 11-46-1589NYQ (RBC) [Entitic mass]MCH [Entitic mass] by Automated count26.7-34.0[facility] HospitalHC Auto (RBC) [Mass/Vol]on 50-38-5385IPRE (RBC) [Mass/Vol]MCHC [Mass/volume] by Automated count29.9-35.2FFayette County Memorial HospitalMCV Auto (RBC) [Entitic vol]on 48-36-2609TZM (RBC) [Entitic vol]MCV [Entitic volume] by Automated count 81.0-99.0[facility] HamiltonMicroalbumin [Mass/volume] in Urineon 29-81-5978Bhjbczo DL <= 20 mg/L (U) [Mass/Vol]Microalbumin [Mass/volume] in Urine<=30.0[facility] HamiltonMonocytes Auto (Bld) [#/Vol]on 86-63-7566Hjsfzvvhz (Bld) [#/Vol]Automated blood monocyte count0.3-0.8[facility] HamiltonMonocytes/100 WBC Auto (Bld)on 99-55-4982Hkxttwaik/100 WBC (Bld)Automated monocyte %1.7-12.0[facility] Neutrophils Auto (Bld) [#/Vol]on 80-47-3180Djcrpjboxhw (Bld) [#/Vol]Neutrophils [#/volume] in Blood by Automated count1.4-6.5FFayette County Memorial Hospital Neutrophils/100 WBC Auto (Bld)on 84-33-9890Xsbhjfqcahi/100 WBC (Bld)Automated neutrophil %43.0-75.0[facility] HamiltonNo Panel Informationon 78-76-7692Fjkbeqqkufy # (Auto)0.2 10 3/uL0.0-0.7FFayette County Memorial HospitalImmature Granulocyte # (Auto)0.01 10 3/uL0.00-0.03[facility] HamiltonUrine Random Ctiisnxezd740.77 mg/fKRsox96.00-300.00[facility] HamiltonPlatelet mean volume Auto (Bld) [Entitic vol]on 47-48-8787Wgvmolis mean volume (Bld) [Entitic vol]Platelet mean volume [Entitic volume] in Blood by Automated countLow9.5-13.5FFayette County Memorial Hospital Platelets Auto (Bld) [#/Vol]on 15-50-3306Xwrhjlvzx (Bld) [#/Vol]Platelets [#/volume] in Blood by Automated ryekg042-510LzvbmhpsrKettering Health Hamilton RBC Auto (Bld) [#/Vol]on 26-37-2482MBM (Bld) [#/Vol]Erythrocytes [#/volume] in Blood by Automated count4.20-5.40[facility] John Medical Centererum or plasma albumin/globulin mass ratioon 69-79-0922Bwunivi/Globulin [Mass ratio] Serum or plasma albumin/globulin mass ratioKettering Health Hamilton Serum or plasma anion gap determinationon 84-65-3356Hvbwc gap [Moles/Vol]Serum or plasma anion gap determinationKettering Health HamiltonUrine microalbumin/creatinine mass ratioon 61-95-2807Bgswqxl/Creatinine DL <= 20 mg/L (U) [Mass ratio]Urine microalbumin/creatinine mass ratio0.0-29.9[facility] HamiltonComment on above:NO MICROALBUMINURIA 0-29 MG/GCLINICAL MICROALBUMINURIA 30-300 MG/GMACROALBUMINURIA >300 MG/GNo Panel Information Ordered By: Michelle Ross on 66-61-5515EEVFS Antigen (POC)[facility] HamiltonQuick Strep (POC)[facility] HamiltonBasophils Auto (Bld) [#/Vol]on 42-75-4808Iarzmdnzt (Bld) [#/Vol]0.0 10 3/uL0.0-0.1FFayette County Memorial HospitalBasophils/100 WBC Auto (Bld)on 57-69-1456Suqxtjvlj/100 WBC (Bld)0.6 %0.2-2.0[facility] HamiltonCholesterol in LDL Calc [Mass/Vol]on 19-83-3372Hyyudveoauo in LDL [Mass/Vol]65.8 mg/dLKettering Health HamiltonComment on above:<100 mg/dl PPQRFFY647-784 mg/dl NEAR OR ABOVE XXKEFBD430-801 mg/dl BORDERLINE UHQE413-886 mg/dl HIGH>190 mg/dl VERY HIGH Cholesterol in VLDL Calc [Mass/Vol]on 78-23-8743Xnghdstoaxp in VLDL [Mass/Vol] 26.2 mg/dLKettering Health HamiltonEosinophils/100 WBC Auto (Bld)on 99-55-7523Bmryysxfise/100 WBC (Bld)3.5 %0.9-7.0[facility] Erythrocyte distribution width Auto (RBC) [Ratio]on 89-09-7460Dwulgncermq distribution width (RBC) [Ratio]13.5 %11.0-15.0[facility] Estimated glomerular filtration rate (GFR) non- Americanon 08-31-2023 GFR/1.73 sq M.predicted among non-blacks MDRD (S/P/Bld) [Vol rate/Area] mL/min/{1.73_m2}>=60[facility] HamiltonGlobulin Calc (S) [Mass/Vol]on 33-23-0740Nlhivbic (S) [Mass/Vol]3.7 g/dLKettering Health HamiltonHematocrit Auto (Bld) [Volume fraction]on 41-95-8924Nojmzarpuf (Bld) [Volume fraction]42.2 %36.0-48.0[facility] HamiltonHemoglobin [Mass/volume] in Bloodon 28-79-5410Hbuxwqdqwh (Bld) [Mass/Vol]13.6 g/dL12.0-16.0 [facility] HamiltonLaboratory - Chemistry and Chemistry - challengeon 72-30-8625Eguuzch [Mass/Vol]3.4 g/dL3.4-5.0[facility] HamiltonALP [Catalytic activity/Vol]120 U/BFgmo43-478EuehmitybKettering Health HamiltonALT [Catalytic activity/Vol]28 U/N30-73GpmermgszKettering Health HamiltonAST [Catalytic activity/Vol]18 U/H20-06KkmstjvhsKettering Health Hamilton Bilirubin [Mass/Vol]0.4 mg/dL0.2-1.0[facility] HamiltonCalcium [Mass/Vol]9.0 mg/dL8.5-10.1FFayette County Memorial HospitalChloride [Moles/Vol] 108 mmol/MKsna14-887BzimbngioKettering Health HamiltonCholesterol [Mass/Vol]135 mg/dL<=200[facility] HamiltonCholesterol in HDL [Mass/Vol]43 mg/dL 40-60[facility] HamiltonComment on above:> or =60 mg/dl - LOW CARDIOVASCULAR RISK<40 mg/dl - HIGH CARDIOVASCULAR RISKCO2 [Moles/Vol]28.5 mmol/L21.0-32.0[facility] HamiltonCreatinine [Mass/Vol]0.85 mg/dL 0.55-1.02[facility] HamiltonGFR/1.73 sq M.predicted MDRD (S/P/Bld) [Vol rate/Area]mL/min/{1.73_m2}>=60[facility] HamiltonGlucose [Mass/Vol]125 mg/kUDxke85-805IwtpcvsagKettering Health HamiltonPotassium [Moles/Vol]3.8 mmol/L3.5-5.1FFayette County Memorial HospitalProtein [Mass/Vol] 7.1 g/dL6.4-8.2FAdams County Regional Medical Centerodium [Moles/Vol]143 mmol/L 136-145[facility] HamiltonTriglyceride [Mass/Vol]131 mg/dL<=150 [facility] HamiltonTSH Qn1.947 m[IU]/L0.358-3.740Firelands Regional Medical CenterUrea nitrogen [Mass/Vol]10.0 mg/dL7.0-18.0[facility] HamiltonUrea nitrogen/Creatinine [Mass ratio]11.8 mg/mgKettering Health HamiltonLaboratory - Hematology and Cell countson 08-31-2023 Immature granulocytes/100 WBC (Bld)0.2 %0.0-0.5FFayette County Memorial Hospital Leukocytes [#/volume] corrected for nucleated erythrocytes in Blood by Automated counon 49-87-3951NKQ corrected for nucl RBC Auto (Bld) [#/Vol]5.1 10 3/uL 4.0-11.0[facility] HamiltonLymphocytes Auto (Bld) [#/Vol]on 24-40-6538Vogyzappxcw (Bld) [#/Vol]1.4 10 3/uL1.2-3.8[facility] HamiltonLymphocytes/100 WBC Auto (Bld)on 20-46-4454Crcwpblhrpf/100 WBC (Bld)26.3 % 20.5-60.0[facility] HospitalH Auto (RBC) [Entitic mass]on 80-14-5851TCH (RBC) [Entitic mass]29.1 pg26.7-34.0[facility] HamiltonMCHC Auto (RBC) [Mass/Vol]on 94-85-4216NGNX (RBC) [Mass/Vol]32.2 g/dL 29.9-35.2FFayette County Memorial HospitalMCV Auto (RBC) [Entitic vol]on 16-26-0950XXB (RBC) [Entitic vol]90.2 fL81.0-99.0[facility] HamiltonMonocytes Auto (Bld) [#/Vol]on 08-22-1938Smqykudmf (Bld) [#/Vol]0.5 10 3/uL0.3-0.8[facility] HamiltonMonocytes/100 WBC Auto (Bld)on 20-43-8071Kxusfnmzw/100 WBC (Bld)9.9 %1.7-12.0[facility] Neutrophils Auto (Bld) [#/Vol]on 68-26-3777Edvwifaartk (Bld) [#/Vol]3.1 10 3/uL 1.4-6.5FFayette County Memorial HospitalNeutrophils/100 WBC Auto (Bld)on 25-69-1394Krtlatqlbym/100 WBC (Bld)59.5 %43.0-75.0[facility] HamiltonNo Panel Informationon 87-86-4346Iuhsdjgeqku # (Auto)0.2 10 3/uL0.0-0.7 [facility] HamiltonImmature Granulocyte # (Auto)0.01 10 3/uL 0.00-0.03[facility] HamiltonPlatelet mean volume Auto (Bld) [Entitic vol]on 15-19-4343Kdgnljmb mean volume (Bld) [Entitic vol]9.1 fLLow 9.5-13.5FFayette County Memorial HospitalPlatelets Auto (Bld) [#/Vol]on 28-13-7656Mcwhclgix (Bld) [#/Vol]270 10 3/xL169-152BmppybraxKettering Health HamiltonRBC Auto (Bld) [#/Vol]on 13-64-9753GJP (Bld) [#/Vol]4.68 10 6/uL4.20-5.[address] [facility] Medical Centererum or plasma albumin/globulin mass ratioon 77-74-7878Sqoerzk/Globulin [Mass ratio]0.9 {ratio}[facility] John Medical Centererum or plasma anion gap determinationon 36-59-5916Hqqff gap [Moles/Vol] 10.3 mmol/LFAdams County Regional Medical Centererum or plasma total cholesterol/high density lipoprotein (HDL) cholesterol mass michele 08-31-2023 Cholesterol.total/Cholesterol in HDL [Mass ratio]3.1 {ratio}[facility] HamiltonComment on above:3.3 - 4.4 LOW RISK4.4 - 7.1 AVERAGE RISK7.1 - 11.0 MODERATE RISK>11.0 HIGH RISKXR HAND LT MIN 3Von 80-46-8651VK HAND LT MIN 3V EXAM: XR HAND [...] authenticated by: MARIA L CURTIS Date: 2022-04-28 19:01The MetroHealth SystemCHEMISTRYOrdered By: SYSTEM SYSTEM on 01-53-7713Pihxh gap [Moles/Vol]9 mmol/LNormal6 - 16 mEq/LFTMC RemisolCalcium [Mass/Vol]9.2 mg/dL Normal8.9 - 11.1 mg/dLFTMC RemisolChloride [Moles/Vol]105 mmol/SZafsjk957 - 111 mmol/LFTMC RemisolCO2 [Moles/Vol]28 mmol/CRwsrxv84 - 31 mmol/LFTMC Remisol Creatinine [Mass/Vol]0.9 mg/dLNormal0.5 - 1.3 mg/dLFTMC RemisolGFR/1.73 sq M.predicted among blacks MDRD (S/P/Bld) [Vol rate/Area]mL/min/1.73 i6Eikjbl >=59mL/min/1.73 m2FT Chem SGFR/1.73 sq M.predicted among non-blacks MDRD (S/P/Bld) [Vol rate/Area]mL/min/1.73 v5Wdwyoi>=59mL/min/1.73 m2FT Chem S Glucose [Mass/Vol]112 mg/eGCjqcqk98 - 199 mg/dLFTMC RemisolPotassium [Moles/Vol] 3.3 mmol/LLow3.5 - 5.3 mmol/LFTMC RemisolSodium [Moles/Vol]139 mmol/HQgdiho412 - 145 mmol/LFTMC RemisolUrea nitrogen [Mass/Vol]14 mg/dLNormal5 - 21 mg/dLFTMC RemisolUrea nitrogen/Creatinine [Mass ratio]16 mg/jvFlrcvx69 - 20FT[facility] Remisol HEMATOLOGYOrdered By: [employer] SYSTEM on 29-48-9009Atloyssuc/100 WBC (Bld)0.4 % Normal0.0 - 2.0 %[facility] HemeAutoSSBasophils/Leukocytes Auto (Bld) [Pure # fraction]0.0 E9/LNormal0.0 - 0.2 E9/LFTMC HemeAutoSSEosinophils/100 WBC (Bld)2.6 %Normal0.0 - 8.0 %[facility] HemeAutoSSEosinophils/Leukocytes Auto (Bld) [Pure # fraction]0.2 E9/LNormal0.0 - 0.5 E9/LFTMC HemeAutoSSLymphocytes/100 WBC (Bld) 26.6 %Mejxoc12.0 - 50.0 %[facility] HemeAutoSSLymphocytes/Leukocytes Auto (Bld) [Pure # fraction]1.8 E9/LNormal1.0 - 4.0 E9/LFTMC HemeAutoSSMonocytes/100 WBC (Bld)9.0 %Normal4.0 - 14.0 %[facility] HemeAutoSSMonocytes/Leukocytes Auto (Bld) [Pure # fraction]0.6 E9/LNormal0.2 - 1.0 E9/LFTMC HemeAutoSSNeutrophils/100 WBC (Bld) 61.4 %Ecguhs79.0 - 75.0 %[facility] HemeAutoSSNeutrophils/Leukocytes Auto (Bld) [Pure # fraction]4.1 E9/LNormal2.0 - 7.5 E9/LFTMC HemeAutoSSHEMATOLOGYOrdered By: Alee De La Rosa on 32-80-7994Krwwzyerqld distribution width (RBC) [Ratio]14.1 % Pjpdeo65.9 - 14.2 %[facility] HemeAutoSSHematocrit (Bld) [Volume fraction]42.5 %Normal 34.0 - 46.0 %[facility] HemeAutoSSHemoglobin (Bld) [Mass/Vol]14.5 g/tZCbwjph68.0 - 16.0 gm/dLFTMC HemeAutoSSMCH (RBC) [Entitic mass]29.6 smYhbpqk34.0 - 34.0 [facility] HemeAutoSSMCHC (RBC) [Mass/Vol]34.2 g/tIFftjos96.4 - 36.0 gm/dLFT HemeAutoSS MCV (RBC) [Entitic vol]86.7 tVChevtz20.0 - 100.0 fLLAUREATE PSYCHIATRIC [facility] HemeAutoSSPlatelet mean volume (Bld) [Entitic vol]7.3 fLNormal6.4 - 10.8 fLLAUREATE PSYCHIATRIC [facility] [place] HemeAutoSSPlatelets (Bld) [#/Vol]316.0 E9/SXbvrzz257.0 - 500.0 E9/LFTMC HemeAutoSSRBC (Bld) [#/Vol] 4.9 E12/LNormal4.3 - 5.9 E12/LFTMC HemeAutoSSWBC corrected for nucl RBC Auto (Bld) [#/Vol]6.7 E9/LNormal4.0 - 11.0 E9/LFTMC HemeAutoSSNM STRESS ONLY SINGLEon 55-85-9099OK STRESS ONLY SINGLEPatient: ALEXA CAREY Exam Date: 04/01/2022 : 1970 Gender:F Ordering : DR DARIUSZ KEEN . Admission #: [id number] Family : Order #: [id number] CLICK HERE TO VIEW EXAM RADIOLOGY REPORT [...] by: Laith Cárdenas M.D. on 04/07/2022 at 11:46NormalThUniversity Hospitals Parma [facility] Center AUTO DIFFon 22-67-7159BWGS #0.0 103/ulNormal0.0-0.1The [facility] HospitalComment on above:Performed By: #### CBC #### [facility] [address] [address] [address] Therese KaiserBasophils/100 WBC (Bld)0.4 %Normal0.2-2.0[facility] Comment on above:Performed By: #### CBC #### [facility] [address] [place] [address] Dr. Therese Amin #0.2 103/ulNormal0.0-0.7The [facility] HospitalComment on above: Performed By: #### CBC #### [facility] [address] [address] [address] Therese Bynumosinophils/100 WBC (Bld)3.4 %Normal0.9-7.0[facility] Comment on above:Performed By: #### CBC #### [facility] [address] [address] [address] Therese Bynumrythrocyte distribution width (RBC) [Ratio]13.2 %Goqphd72.0-15.0 The [facility] HospitalComment on above:Performed By: #### CBC #### [facility] [address] [place] [address] Dr. Therese KaiserHematocrit (Bld) [Volume fraction]43.0 %Asyduw13.0-48.0[facility] Hospital DaytonComment on above:Performed By: #### CBC #### [facility] [address] [place] [address] Dr. Therese KaiserHemoglobin (Bld) [Mass/Vol]13.9 g/vNYrpobf61.0-16.0The [facility] HospitalComment on above:Performed By: #### CBC #### [facility] [address] [place] [address] Dr. Therese Lyon #0.01 10e3/ulNormal0.00-0.03The [facility] HospitalComment on above:Performed By: #### CBC #### [facility] [address] [place] [address] Dr. Therese Lyon %0.2 %Normal0.0-0.5The [facility] HospitalComment on above: Performed By: #### CBC #### [facility] [address] [place] [address] Dr. Therese Dale #1.6 103/ulNormal1.2-3.8The [facility] HospitalComment on above:Performed By: #### CBC #### [facility] [address] [place] [address] Dr. Therese Cisneroshocytes/100 WBC (Bld)31.9 %Aseisg42.5-60.0The [facility] HospitalComment on above:Performed By: #### CBC #### [facility] [address] [place] [address] Dr. Therese Joshua DIFF REQNONormalThe Marion HospitalComment on above: Performed By: #### CBC #### [facility] [address] [place] [address] Dr. Therese Hampton (RBC) [Entitic mass]28.5 xeHaumje17.7-34.0The [facility] HospitalComment on above:Performed By: #### CBC #### [facility] [address] [place] [address] Dr. Therese Hampton (RBC) [Mass/Vol]32.3 g/wITkksds93.9-35.2The [facility] HospitalComment on above:Performed By: #### CBC #### [facility] [address] [place] [address] Dr. Therese Hampton (RBC) [Entitic vol]88.3 eVGfbtuc84.0-99.0The [facility] HospitalComment on above:Performed By: #### CBC #### [facility] [address] [place] [address] Dr. Therese Restrepo #0.5 103/ulNormal0.3-0.8The [facility] HospitalComment on above:Performed By: #### CBC #### [facility] [address] [place] [address] Dr. Therese Noblesocytes/100 WBC (Bld)10.3 %Normal1.7-12.0[facility] Comment on above:Performed By: #### CBC #### [facility] [address] [place] [address] Dr. Therese Nash #2.7 103/ulNormal1.4-6.5The [facility] HospitalComment on above:Performed By: #### CBC #### [facility] [address] [place] [address] Dr. Therese Fultonutrophils/100 WBC (Bld)53.8 %Yfpsuf88.0-75.0The [facility] HospitalComment on above:Performed By: #### CBC #### [facility] [address] [place] [address] Dr. Therese Elmore mean volume (Bld) [Entitic vol]8.9 fLCritically low 9.5-13.5The [facility] HospitalComment on above:Performed By: #### CBC #### [facility] [address] [place] [address] Dr. Therese HusseinT295 103/btUyhynv107-094Hap Marion HospitalComment on above: Performed By: #### CBC #### [facility] [address] [place] [address] Dr. Therese AlfaroC4.87 106/ulNormal4.20-5.40The [facility] HospitalComment on above:Performed By: #### CBC #### [facility] [address] [place] [address] Dr. Therese KaiserWBC5.0 103/ulNormal4.0-11.0The [facility] HospitalComment on above: Performed By: #### CBC #### [facility] [address] [place] [address] Dr. Therese BoswellIMEon 21-60-7553LVS Coag (PPP) [Relative time]0.95 {INR} NormalAccess Hospital DaytonComuniversity of michigan hospital on above:Performed By: #### PT, PTT #### [facility] [address] [place] [address] Dr. Therese Peter GUIDELINESSEE BELOWThe MetroHealth SystemComment on above:Result Comment: DESIRED INR: 2.0 - 3.0 CONDITIONS NOT LISTED BELOW 2.5 - 3.5 FOR PROSTHETIC HEART VALVE REPLACEMENT 2.5 - 3.5 RECURRENT THROMBOSIS Performed By: #### PT, PTT #### [facility] [address] [place] [address] Dr. Therese KaiserPT Coag (PPP) [Time]10.3 sNormal9.0-11.6ThWilson Memorial Hospital Comment on above:Performed By: #### PT, PTT #### [facility] [address] [place] [address] Dr. Therese Bashir [id number] Coag (Bld) [Time]27.6 qKjlhcn92.3-36.2Access Hospital DaytonComment on above:Performed By: #### PT, PTT #### [facility] [address] [place] [address] Dr. Therese KaiserGLYCOHEMOGLOBIN A1Con [id number] RECOMMENDATIONSEE BELOWFisher-Titus Medical CenterComuniversity of [facility] hospital on above:Result Comment: ADA RECOMMENDED LIMIT 4.0 - 6.0 ADA THERAPEUTIC TARGET < 7.0 ACTION SUGGESTED > 7.0Performed By: #### A1C ####[facility] [address] [place], [place] [address]Dr. Therese KaiserGlucose [Mass/Vol]128 mg/dLThe [facility] [facility]Com[facility] on above:Performed By: #### A1C ####[facility] [address] [place], [place] [address]Dr.Yilan KaiserHbA1c (Bld) [Mass fraction]6.1 %Normal 4.5-6.2The [facility] HospitalComment on above:Performed By: #### A1C ####[facility] [address] [address]Dr.Yilan SosaC AUTO DIFFon 70-44-0205CPRZ #0.0 103/ulNormal0.0-0.1The [facility] HospitalComment on above:Performed By: #### CBC #### [facility] [address] [address] [address] Therese KaiserBasophils/100 WBC (Bld)0.5 %Normal0.2-2.0[facility] Comment on above:Performed By: #### CBC #### [facility] [address] [address] [address] Saleh ChangEO #0.2 103/ulNormal0.0-0.7The [facility] HospitalComment on above: Performed By: #### CBC #### [facility] [address] [address] [address] Therese Bynumosinophils/100 WBC (Bld)2.7 %Normal0.9-7.0The [facility] Comment on above:Performed By: #### CBC #### [facility] [address] [address] [address] Therese Bynumrythrocyte distribution width (RBC) [Ratio]14.1 %Yxmitr24.0-15.0 The [facility] HospitalComment on above:Performed By: #### CBC #### [facility] [address] [address] [address] Therese KaiserHematocrit (Bld) [Volume fraction]43.3 %Nqlaqo81.0-48.0The [facility] HospitalComment on above:Performed By: #### CBC #### [facility] [address] [address] [address] Therese KaiserHemoglobin (Bld) [Mass/Vol]14.0 g/aLUwrwyl46.0-16.0The [facility] on above:Performed By: #### CBC #### [facility] [address] [address] [address] Therese Lyon #0.02 10e3/ulNormal0.00-0.03The [facility] on above:Performed By: #### CBC #### [facility] [address] [place] [address] Dr. Therese Lyon %0.3 %Normal0.0-0.5The [facility] on above: Performed By: #### CBC #### [facility] [address] [place] [address] Dr. Therese Dale #1.8 103/ulNormal1.2-3.8The [facility] on above:Performed By: #### CBC #### [facility] [address] [place] [address] Dr. Therese Cisneroshocytes/100 WBC (Bld)27.6 %Bzyuol68.5-60.0The [facility] on above:Performed By: #### CBC #### [facility] [address] [place] [address] Dr. Therese GaviriaUAL DIFF REQNONormalThe [facility] on above: Performed By: #### CBC #### [facility] [address] [place] [address] Dr. Therese Hampton (RBC) [Entitic mass]28.7 kjKkhfxt07.7-34.0The [facility] on above:Performed By: #### CBC #### [facility] [address] [place] [address] Dr. Therese Hampton (RBC) [Mass/Vol]32.3 g/pUEatoni93.9-35.2The [facility] on above:Performed By: #### CBC #### [facility] [address] [place] [address] Dr. Therese Hampton (RBC) [Entitic vol]88.7 qQTlmgrp47.0-99.0The [facility] HospitalComment on above:Performed By: #### CBC #### [facility] [address] [address] [address] Therese Restrepo #0.5 103/ulNormal0.3-0.8The [facility] HospitalComment on above:Performed By: #### CBC #### [facility] [address] [address] [address] Therese Noblesocytes/100 WBC (Bld)7.9 %Normal1.7-12.0[facility] Comment on above:Performed By: #### CBC #### [facility] [address] [place] [address] Dr. Therese Nash #3.9 103/ulNormal1.4-6.5The [facility] HospitalComment on above:Performed By: #### CBC #### [facility] [address] [place] [address] Dr. Therese Fultonutrophils/100 WBC (Bld)61.0 %Hmxrbf21.0-75.0The [facility] HospitalComment on above:Performed By: #### CBC #### [facility] [address] [place] [address] Dr. Therese Elmore mean volume (Bld) [Entitic vol]8.9 fLCritically low 9.5-13.5The [facility] HospitalComment on above:Performed By: #### CBC #### [facility] [address] [place] [address] Dr. Therese KaiserPLT293 103/xdEixazz665-836Quw [facility] HospitalComment on above: Performed By: #### CBC #### [facility] [address] [place] [address] Dr. Therese KaiserRBC4.88 106/ulNormal4.20-5.40The [facility] HospitalComment on above:Performed By: #### CBC #### [facility] [address] [place] [address] Dr. Therese KaiserWBC6.3 103/ulNormal4.0-11.0The [facility] Hospitalment on above: Performed By: #### CBC #### [facility] [address] [address] [address] Therese BarrowID PROFILEon [id number]-HDL RATIO NORMSDelaware County HospitalComuniversity of [facility] hospital on above:Result Comment: 3.3 - 4.4 LOW RISK 4.4 - 7.1 AVERAGE RISK 7.1 - 11.0 MODERATE RISK >11.0 HIGH RISKPerformed By: #### LIPID, TSH, CMP #### [facility] [address] [address] [address] Therese KaiserCholesterol [Mass/Vol]148 mg/dLNormal<=200[facility] Comment on above:Performed By: #### LIPID, TSH, CMP #### [facility] [address] [address] [address] Therese KaiserCholesterol in HDL [Mass/Vol]38 mg/dLCritically fkx95-85RybAccess Hospital DaytonComment on above:Performed By: #### LIPID, TSH, CMP #### [facility] [address] [address] [address] Therese KaiserCholesterol in LDL [Mass/Vol]70.8 mg/dLOhio [facility] on above:Performed By: #### LIPID, TSH, CMP #### [facility] [address] [address] [address] Therese Khouryestermary.total/Cholesterol in HDL [Mass ratio]3.9 {ratio} NormalAccess Hospital DaytonComment on above:Performed By: #### LIPID, TSH, CMP #### [facility] [address] [address] [address] Therese KaiserHDL NORMAL> or = 60 mg/dl - LOW CARDIOVASCULAR RISK <40 mg/dl - HIGH CARDIOVASCULAR RISKThe [facility] SystemComuniversity of [facility] hospital on above:Performed By: #### LIPID, TSH, CMP #### [facility] [address] [address] [address] Therese KaiserLDL CALC NORMALSEE [facility] SystemComment on above:Result Comment: <100 mg/dl OPTIMAL 100 - 129 mg/dl NEAR OR ABOVE OPTIMAL 130 - 159 mg/dl BORDERLINE HIGH 160 - 189 mg/dl HIGH >190 mg/dl VERY HIGH Performed By: #### LIPID, TSH, CMP #### [facility] [address] [address] [address] Therese KaiserTriglyceride [Mass/Vol]196 mg/dLCritically high<=150The [facility] HospitalComment on above:Performed By: #### LIPID, TSH, CMP #### [facility] [address] [address] [address] Therese KaiserVLDL CALC39.2 mg/dLNormalThe [facility] HospitalComment on above: Performed By: #### LIPID, TSH, CMP #### [facility] [address] [place] [address] Dr. Therese KaiserPROF 14(COMP METB)on 03-06-7461Xrreown [Mass/Vol]3.8 g/dLNormal 3.4-5.0The [facility] HospitalComment on above:Performed By: #### LIPID, TSH, CMP #### [facility] [address] [address] [address] Therese KaiserAlbumin/Globulin [Mass ratio]1.1 {ratio}NormalThe [facility] HospitalComment on above:Performed By: #### LIPID, TSH, CMP #### [facility] [address] [place] [address] Dr. Therese Romero [Catalytic activity/Vol]97 U/NZqvvnq46-995Ycj [facility] HospitalComment on above:Performed By: #### LIPID, TSH, CMP #### [facility] [address] [address] [address] Therese Hernández [Catalytic activity/Vol]47 U/UVxuyhj50-89Tyf [facility] HospitalComment on above:Performed By: #### LIPID, TSH, CMP #### [facility] [address] [address] [address] Therese Pandya gap [Moles/Vol]12.5 mmol/LNormalThe [facility] Comment on above:Performed By: #### LIPID, TSH, CMP #### [facility] [address] [place] [address] Dr. Therese KaiserAST [Catalytic activity/Vol]31 U/AZnorrn83-60Hhg [facility] HospitalComment on above:Performed By: #### LIPID, TSH, CMP #### [facility] [address] [place] [address] Dr. Therese KaiserBilirubin [Mass/Vol]0.4 mg/dLNormal0.2-1.0The [facility] Comment on above:Performed By: #### LIPID, TSH, CMP #### [facility] [address] [place] [address] Dr. Therese KaiserCalcium [Mass/Vol]9.2 mg/dLNormal8.5-10.1The [facility] Comment on above:Performed By: #### LIPID, TSH, CMP #### [facility] [address] [place] [address] Dr. Therese KaiserChloride [Moles/Vol]106 mmol/ZFzdyjd23-366Uqu [facility] Comment on above:Performed By: #### LIPID, TSH, CMP #### [facility] [address] [place] [address] Dr. Therese KaiserCO2 [Moles/Vol]26.1 mmol/WYdqxax81.0-32.0[facility] Comment on above:Performed By: #### LIPID, TSH, CMP #### [facility] [address] [place] [address] Dr. Therese KaiserCreatinine [Mass/Vol]0.86 mg/dLNormal0.55-1.02The [facility] HospitalComment on above:Performed By: #### LIPID, TSH, CMP #### [facility] [address] [place] [address] Dr. Therese BynumGFR-AF MOSOTHO>60Normal>=60The [facility] HospitalComment on above:Performed By: #### LIPID, TSH, CMP #### [facility] [address] [place] [address] Dr. Therese BynumGFR-NON AF MOSOTHO>60Normal>=60The [facility] HospitalComment on above:Performed By: #### LIPID, TSH, CMP #### [facility] [address] [place] [address] Dr. Therese KaiserGlobulin (S) [Mass/Vol]3.6 g/dLNormBluffton HospitalComment on above:Performed By: #### LIPID, TSH, CMP #### [facility] [address] [place] [address] Dr. Therese KaiserGlucose [Mass/Vol]125 mg/dLCritically vaui00-341Liu [facility] HospitalComment on above:Performed By: #### LIPID, TSH, CMP #### [facility] [address] [place] [address] Dr. Therese KaiserPotassium [Moles/Vol]3.6 mmol/LNormal3.5-5.1[facility] Comment on above:Performed By: #### LIPID, TSH, CMP #### [facility] [address] [place] [address] Dr. Therese KaiserProtein [Mass/Vol]7.4 g/dLNormal6.4-8.2The [facility] Comment on above:Performed By: #### LIPID, TSH, CMP #### [facility] [address] [place] [address] Dr. Therese KaiserSodium [Moles/Vol]141 mmol/UJacrif466-307Fut [facility] Comment on above:Performed By: #### LIPID, TSH, CMP #### [facility] [address] [place] [address] Dr. Therese KaiserUrea nitrogen [Mass/Vol]12.0 mg/dLNormal7.0-18.0The [facility] HospitalComment on above:Performed By: #### LIPID, TSH, CMP #### [facility] [address] [place] [address] Dr. Therese KaiserUrea nitrogen/Creatinine [Mass ratio]14.0 mg/mgNoLouis Stokes Cleveland VA Medical CenterComment on above:Performed By: #### LIPID, TSH, CMP #### [facility] [address] [address] [address] Therese Martinez 64-70-5542JNH9.701 uIU/mLNormal0.358-3.740The [facility] HospitalComment on above:Performed By: #### LIPID, TSH, CMP #### [facility] [address] [address] [address] Therese BOURGEOIS [facility] SystemComment on above: Result Comment: <0.34 UIU/ml HYPERTHYROID 0.34-5.60 UIU/ml EUTHYROID >5.60 UIU/ml HYPOTHYROIDPerformed By: #### LIPID, TSH, CMP #### [facility] [address] [place] [address] Dr. Therese KaiserVITAMIN D 25 OHon 17-55-0923BHJ D 25-OH12.9 ng/mLNormalAccess Hospital DaytonComuniversity of mich[facility] hospital on above:Performed By: #### VITAD #### [facility] [address] [place] [address] Dr. Therese IRELANDJenna [facility] SystemComment on above: Result Comment: <20 ng/mL Vit D deficient 20 - <30 ng/mL Vit D insufficient 30 - 100 ng/mL Vit D sufficient >100 ng/mL Potential ToxicityPerformed By: #### VITAD #### [facility] [address] [place] [address] Dr. Therese Casas Visit (Cardiology)on 74-39-8068Upjyew-up visit Diagnoses/Problems Assessed Chest pain (786.50) (R07.9) Mostly non-exertional Relieve with NTG Hypertension, essential, benign (401.1) (I10) Suboptimal + TIMMY, cant tolerate CPAP Hyperlipidemia (272.4) (E78.5) Moderate intensity statin Annual labs with PCP Normal echocardiogram (V72.85) September 2020 Echo LVEF 60% Premature, closure, foramen ovale (745.8) (Q21.8) Nov 2019 PFO Closure Amplatzer 25mm ACS (acute coronary syndrome) (411.1) (I24.9) [facility] September 2020 Class 2 obesity with body mass index (BMI) of 36.0 to 36.9 in adult (278.00,V85.36) (E66.9,Z68.36) Reviewed the merits of healthy lifestyle choices on overall cardiovascular health. Coronary artery disease involving stillaguamish coronary artery of stillaguamish heart without angina pectoris (414.01) (I25.10) September [...] contact the office if new symptoms arise. TC OPERATOR in 3 weeks Discussed the dynamic nature [...] (more content not included)...NormalUH TouchworksTobacco Screening. on 78-35-7618Adkq risk assessmentc) Not medically indicatedSeattle [facility] Medical Center [employer] 250 DO Work Phone: Tobacco use status CPHSb) NoMP-[facility] [employer] 250 DO Work Phone: Lon 12-27-2020 Specimen: [id number] Received: 12/27/20 Status: EMILIE Patterson Num: [id number] Spec Type: Surgical Subm Dr: Frank Felix Jr, DO Tissues: A Colon Biopsy (RANDOM COLON BX) Procedures: RAMY Stain/2, Gross/Micro L4 Patient Age/Sex Location Account Attending Physician Alexa Carey/F [id number] Frank Felix Jr, DO SPEC NUM: [id number] RECD: 12/27/20 STATUS: EMILIE PATTERSON NUM: [id number] HARSHAL: 12/27/20- [facility] DR: Frank Felix Jr, DO ENTERED: 12/27/20-[address] [facility] [address]: SPEC TYPE: Surgical DEPT: S [...] support the above pathologic diagnosis. CPT Codes 98881 Specimen: [id number] Received: 12/27/20 Status: EMILIE Patterson Num: [id number] Spec Type: Surgical Subm Dr: Frank Felix Jr, DO Tissues: A Colon Biopsy (RANDOM COLON BX) Procedures: HE Stain/2, Gross/Micro L4 Patient: Alexa Carey [id number] (Continued) Signed (signature on file) Yaniv May MD 12/30/20 1422[facility] CenterCOVID-19 Antigenon 27-46-5958JNWNO-19 AntigenHealthcare Worker?: Y Alessandro Reference Alessandro Reference [...] its performance Alessandro Disclaimer characteristic determined by [employer] and Alessandro Disclaimer validated at [facility]. This Alessandro Disclaimer test has not been [...] is terminated or revoked sooner. PERFORMED BY: [facility] [address] [place] [address] [address]CAR OPERATOR SUKI LAZAR M.D.[facility] Medical CenterComment on above: Performed By: #### CARLITOSEG, COVID-19 ALESSANDRO #### [facility] [address] [place] [address] USASofia Ag Negativeon 13-14-4398Ruhaz Ag NegativeNegative NormalNegativeKettering Health HamiltonComment on above:Result Comment: This is a duplicate Alessandro SARS Antigen (JOANNA) result to be used for statistical tracking purpose only. PERFORMED BY: [facility] [address] [place] [address] PATH[address]CAR OPERATOR SUKI LAZAR M.D.Performed By: #### CARLITOSEG, COVID-19 ALESSANDRO #### [facility] [address] [place] [address] USACNCOon 45-16-3204BBQUJetuxc TextNormalCDiley Ridge Medical Center METABOLIC PANELon 78-18-3599Gwczsoy [Mass/Vol]9.4 mg/dLNormal 8.6-10.3The [facility] CenterComment on above:Order Comment: No: Do not add to previous drawPerformed By: #### 62579, 65180 ####[facility] [place] [address], USAChloride [Moles/Vol]103 mmol/XTxdzwp56-418Lkw [facility] CenterComment on above:Order Comment: No: Do not add to previous drawPerformed By: #### 70104, 30810 ####[facility] [place] [address], USACO2 [Moles/Vol]31 mmol/ILkxqbe58-65Lnb [facility] CenterComment on above:Order Comment: No: Do not add to previous drawPerformed By: #### 18707, 34175 ####[facility] [place] [address], USACreatinine [Mass/Vol]0.93 mg/dLNormal0.60-1.20The [facility] CenterComment on above:Order Comment: No: Do not add to previous drawPerformed By: #### 53264, 89882 ####[facility] [place] [address], USAGFR/1.73 sq M.predicted among blacks MDRD (S/P/Bld) [Vol rate/Area]mL/min/{1.73_m2}Normal>60The [facility] CenterComment on above:Order Comment: No: Do not add to previous drawPerformed By: #### 30443, 95334 ####[facility] [place] [address], USAGFR/1.73 sq M.predicted among non-blacks MDRD (S/P/Bld) [Vol rate/Area]mL/min/{1.73_m2}Normal>60The [facility] CenterComment on above:Order Comment: No: Do not add to previous drawPerformed By: #### 94712, 76569 ####[facility] [place] [address], USAGlucose [Mass/Vol]106 mg/cQOryi33-837Tri [facility] CenterComment on above:Order Comment: No: Do not add to previous drawPerformed By: #### 57755, 14164 ####[facility] [place] [address], [place] Potassium [Moles/Vol]3.8 mmol/LNormal3.5-5.1The [facility] CenterComment on above:Order Comment: No: Do not add to previous drawPerformed By: #### 52992, 88168 ####[facility] [place] [address], USASodium [Moles/Vol]140 mmol/CErxmal995-789Pgm [facility] CenterComment on above:Order Comment: No: Do not add to previous drawPerformed By: #### 38525, 31629 ####[facility] [place] [address], USAUrea nitrogen [Mass/Vol]13 mg/dL Normal7-25The [facility] CenterComment on above:Order Comment: No: Do not add to previous drawPerformed By: #### 41945, 03086 ####[facility] [place] [address], RUSTCBC W/DIFFon 03-99-0900UFL IMM GRANS0.0 10*3/uLNormal0.0-0.2The [facility] CenterComment on above:Order Comment: No: Do not add to previous drawPerformed By: #### 23723, 69355, 29881 #### [facility] [address] [place] [address], USAABS NEUTROPHILS4.3 10*3/uLNormal1.6-7.6The [facility] CenterComment on above:Order Comment: No: Do not add to previous drawPerformed By: #### 88074, 94643, 13461 #### [facility] [address] [place] [address], USABasophils (Bld) [#/Vol]0.0 10*3/uLNormal0.0-0.2The [facility] CenterComment on above:Order Comment: No: Do not add to previous drawPerformed By: #### 35183, 98193, 71782 #### [facility] [address] [place] [address], USABasophils/100 WBC (Bld)0.4 %Normal0.0-1.0The [facility] CenterComment on above:Order Comment: No: Do not add to previous drawPerformed By: #### 81444, 28553, 07267 #### [facility] [address] [place] [address], USAEosinophils (Bld) [#/Vol]0.2 10*3/uLNormal0.0-0.5The [facility] CenterComment on above:Order Comment: No: Do not add to previous drawPerformed By: #### 49103, 62714, 91506 #### [facility] [address] [place] [address], USAEosinophils/100 WBC (Bld)2.7 %Normal0.0-6.0The [facility] CenterComment on above:Order Comment: No: Do not add to previous drawPerformed By: #### 36209, 75439, 18092 #### [facility] [address] [place] [address], USAErythrocyte distribution width (RBC) [Ratio]13.4 %Normal 11.5-15.0The [facility] CenterComment on above:Order Comment: No: Do not add to previous drawPerformed By: #### 20007, 36506, 81482 #### [facility] [address] [facility] [place] [address], USAHematocrit (Bld) [Volume fraction]38.8 %Msuznb32.0-45.0The [facility] CenterComment on above:Order Comment: No: Do not add to previous drawPerformed By: #### 29329, 91009, 85489 #### [facility] [address] [place] [address], USAHemoglobin (Bld) [Mass/Vol]12.7 g/iQBcigwu14.0-15.0The [facility] CenterComment on above:Order Comment: No: Do not add to previous drawPerformed By: #### 82823, 02842, 95159 #### [facility] [address] [place] [address], USAIMMATURE GRANS0.4 %Normal0.0-1.0The [facility] CenterComment on above:Order Comment: No: Do not add to previous draw Performed By: #### 13322, 93790, 35105 #### [facility] [address] [place] [address], USALymphocytes (Bld) [#/Vol]1.7 10*3/uLNormal1.2-4.0The [facility] CenterComment on above:Order Comment: No: Do not add to previous drawPerformed By: #### 20731, 62894, 52030 #### [facility] [address] [place] [address], RUSTLymphocytes/100 WBC (Bld)24.4 %Nipkht82.0-45.0The [facility] CenterComment on above:Order Comment: No: Do not add to previous drawPerformed By: #### 77539, 37747, 99883 #### [facility] [address] [place] [address], [facility] (RBC) [Entitic mass]29.8 sxDwpkun65.0-33.0The [facility] CenterComment on above:Order Comment: No: Do not add to previous drawPerformed By: #### 32102, 07921, 55114 #### [facility] [address] [place] [address], [facility] [place] [facility] (RBC) [Mass/Vol]32.7 g/yEEvotiz67.0-35.0The [facility] CenterComment on above:Order Comment: No: Do not add to previous drawPerformed By: #### 17635, 35701, 21908 #### [facility] [address] [place] [address], [facility] (RBC) [Entitic vol]91.1 nBRdmmqw64.0-98.0The [facility] CenterComment on above:Order Comment: No: Do not add to previous drawPerformed By: #### 83257, 72856, 11328 #### [facility] [address] [place] [address], RUSTMonocytes (Bld) [#/Vol]0.7 10*3/uLNormal0.1-1.0The [facility] CenterComment on above:Order Comment: No: Do not add to previous drawPerformed By: #### 64401, 26120, 94706 #### [facility] [address] [place] [address], MYGVIWSF42.1 %Normal5.0-12.0The [facility] CenterComment on above:Order Comment: No: Do not add to previous drawPerformed By: #### 23021, 44690, 38900 #### [facility] [address] [place] [address], USANeutrophils/100 WBC (Bld)62.0 %Nirytc47.0-72.0The [facility] CenterComment on above:Order Comment: No: Do not add to previous drawPerformed By: #### 07664, 45914, 53893 #### [facility] [address] [place] [address], USANucleated RBC/100 WBC (Bld) [Ratio]0 %Normal0-0The [facility] CenterComment on above:Order Comment: No: Do not add to previous drawPerformed By: #### 13137, 65736, 35232 #### [facility] [address] [place] [address], USAPLAT UYT365 10*3/fZGqobfi164-643Zrr [facility] CenterComment on above:Order Comment: No: Do not add to previous draw Performed By: #### 37644, 36743, 23730 #### [facility] [address] [place] [address], USARBC (Bld) [#/Vol]4.26 10*6/uLNormal3.80-5.00The [facility] CenterComment on above:Order Comment: No: Do not add to previous drawPerformed By: #### 01682, 78247, 60233 #### [facility] [address] [place] [address], USAWBC (Bld) [#/Vol]7.00 10*3/uLNormal4.00-10.60The [facility] CenterComment on above:Order Comment: No: Do not add to previous drawPerformed By: #### 40587, 65097, 81288 #### [facility] [address] [place] [address], USALIPID PROFILEon 44-64-2997Oodxpfscufr [Mass/Vol]113 mg/dL Mog811-329Ait [facility] CenterComment on above:Order Comment: No: Do not add to previous drawResult Comment: CHOLESTEROL REFERENCE RANGE: 20 YEARS AND OLDER CARDIOVASCULAR RISK Less than 200 mg/dl Low Risk 200 to 239 mg/dl Borderline Risk 240 mg/dl and greater High RiskPerformed By: #### 61048, 52729 ####[facility] [place] [address], USACholesterol in HDL [Mass/Vol]31 mg/wSUeibaq77-26Bmn [facility] CenterComment on above:Order Comment: No: Do not add to previous drawResult Comment: Slight variation in normal range could be due to gender and/or age. HDL CHOLESTEROL REFERENCE RANGE: 20 years and older Cardiovascular Risk > or =60 mg/dL Desirable 40 TO 59 mg/dL Low Risk <40 mg/dL High RiskPerformed By: #### 02855, 58843 ####[facility] [place] [place] [address], USACholesterol in LDL [Mass/Vol]51 mg/dLNormal0-130The [facility] CenterComment on above:Order Comment: No: Do not add to previous drawResult Comment: LDL IS A CALCULATION LDL IS ONLY VALID IF THE TRIG IS LESS THAN 400.Performed By: #### 10907, 61348 ####[facility] [place] [address], [place] Cholesterol.total/Cholesterol in HDL [Mass ratio]3.6 {ratio}Normal0.0-4.5The [facility] CenterComment on above:Order Comment: No: Do not add to previous drawPerformed By: #### 20696, 08302 ####[facility] [place] [address], USANON-HDL XRQGLNPRXAS14 mg/dLNoBethesda North HospitalComment on above:Order Comment: No: Do not add to previous drawPerformed By: #### 48401, 70336 ####[facility] [place] [address], [place] Triglyceride [Mass/Vol]154 mg/dKAetu50-671Hmi [facility] CenterComment on above:Order Comment: No: Do not add to previous drawResult Comment: TRIGLYCERIDE REFERENCE RANGE: 20 YEARS AND OLDER CARDIOVASCULAR RISK LESS THAN 150 mg/dl LOW RISK 150 TO 199 mg/dl BORDERLINE RISK 200 mg/dl AND GREATER HIGH RISKPerformed By: #### 62863, 95677 ####[facility] [place] [address], RUSTVLDL CHOL31 mg/dL Normal0-40The [facility] CenterComment on above:Order Comment: No: Do not add to previous drawPerformed By: #### 65682, 11086 ####[facility] [place] [address], RUSTPOC GLUCOSE LAB on 30-04-5308Yesetbz [Mass/Vol]159 mg/cQFbvl37-105Tem [facility] CenterComment on above:Performed By: #### 41849, 40940, 91408 #### [facility] [address] [place] [address], USAGlucose [Mass/Vol]109 mg/eOEjxg92-353Mrw [facility] CenterComment on above:Performed By: #### 21408, 17580, 44669 #### [facility] [address] [place] [address], USAUFH HEPARIN ASSAYon 05-75-4056SQLXSEACLNPFEZ HEPARIN<0.10 Critically low0.30-0.70The [facility] CenterComment on above: Result Comment: Rivaroxaban and Apixaban will interfere with the anti Xa assay used to monitor UFH and LMWH. RESULTS CHECKED AND CALLED. ACCURATELY READ BACK BY Olga Saucedo RN at 0740Performed By: #### 46862 ####[facility] [place] [address], USAALDOSTERONE 17943ye 70-34-1203DPBIJFTCEMS5.2 ng/dLNoBethesda North HospitalComment on above:Order Comment: No: Do not [...] reference intervals for this test in the [employer] Laboratory Test Directory ([employer]). Performed By: [facility] [address] [place] [address] Drill Doctor: Adriana Cordoba MDNORWALK [facility] METABOLIC PANELon 09-16-2020 Calcium [Mass/Vol]9.1 mg/dLNormal8.6-10.3The [facility] Comment on above:Order Comment: No: Do not add to previous drawPerformed By: #### 54112, 81097, 26844 #### [facility] [address] [place] [address], USAChloride [Moles/Vol]105 mmol/UQlyhjq54-476Kwh [facility] CenterComment on above:Order Comment: No: Do not add to previous drawPerformed By: #### 48031, 97476, 87842 #### [facility] [address] [place] [address], USACO2 [Moles/Vol]28 mmol/UCiakfd51-15Lqp [facility] CenterComment on above:Order Comment: No: Do not add to previous draw Performed By: #### 91276, 91154, 67889 #### [facility] [address] [place] [address], USACreatinine [Mass/Vol]0.79 mg/dLNormal0.60-1.20The [facility] CenterComment on above:Order Comment: No: Do not add to previous drawPerformed By: #### 19371, 75415, 09572 #### [facility] [address] [place] [address], USAGFR/1.73 sq M.predicted among blacks MDRD (S/P/Bld) [Vol rate/Area]mL/min/{1.73_m2}Normal>60The [facility] Comment on above:Order Comment: No: Do not add to previous drawPerformed By: #### 26078, 78903, 39221 #### [facility] [address] [place] [address], USAGFR/1.73 sq M.predicted among non-blacks MDRD (S/P/Bld) [Vol rate/Area]mL/min/{1.73_m2}Normal>60The [facility] Comment on above:Order Comment: No: Do not add to previous drawPerformed By: #### 62044, 33532, 59686 #### [facility] [address] [place] [address], USAGlucose [Mass/Vol]109 mg/gIEsqm75-538Jjs [facility] CenterComment on above:Order Comment: No: Do not add to previous drawPerformed By: #### 51843, 45935, 36343 #### [facility] [address] [place] [address], USAPotassium [Moles/Vol]3.7 mmol/LNormal3.5-5.1The [facility] CenterComment on above:Order Comment: No: Do not add to previous drawPerformed By: #### 04053, 19091, 87760 #### [facility] [address] [place] [address], USASodium [Moles/Vol]140 mmol/FVtpasc074-357Xpm [facility] CenterComment on above:Order Comment: No: Do not add to previous drawPerformed By: #### 54557, 01649, 29736 #### [facility] [address] [place] [address], USAUrea nitrogen [Mass/Vol]12 mg/dLNormal7-25The [facility] CenterComment on above:Order Comment: No: Do not add to previous drawPerformed By: #### 53094, 80887, 87750 #### [facility] [address] [place] [address], USACALCIUM IONIZED CBGLon 75-98-4763YQQVEXK CALCIUM1.16 mmol/L Normal1.12-1.30The [facility] CenterComment on above:Performed By: #### 61947, 37231, 33019 #### [facility] [address] [place] [address], USACBC W/DIFFon 92-65-3354ZPM IMM GRANS0.0 10*3/uLNormal 0.0-0.2The [facility] CenterComment on above:Order Comment: No: Do not add to previous drawPerformed By: #### 36594, 49361, 90068 #### [facility] [address] [place] [address], USAABS NEUTROPHILS4.4 10*3/uLNormal1.6-7.6The [facility] CenterComment on above:Order Comment: No: Do not add to previous drawPerformed By: #### 08909, 96098, 21734 #### [facility] [address] [place] [address], USABasophils (Bld) [#/Vol]0.0 10*3/uLNormal0.0-0.2The [facility] CenterComment on above:Order Comment: No: Do not add to previous drawPerformed By: #### 96806, 13767, 71221 #### [facility] [address] [place] [address], USABasophils/100 WBC (Bld)0.3 %Normal0.0-1.0The [facility] CenterComment on above:Order Comment: No: Do not add to previous drawPerformed By: #### 20256, 37054, 29878 #### [facility] [address] [facility] [place] [address], USAEosinophils (Bld) [#/Vol]0.2 10*3/uLNormal0.0-0.5The [facility] CenterComment on above:Order Comment: No: Do not add to previous drawPerformed By: #### 74114, 05402, 54726 #### [facility] [address] [facility] [place] [address], USAEosinophils/100 WBC (Bld)2.3 %Normal0.0-6.0The [facility] CenterComment on above:Order Comment: No: Do not add to previous drawPerformed By: #### 38101, 20418, 26765 #### [facility] [address] [place] [address], USAErythrocyte distribution width (RBC) [Ratio]13.2 %Normal 11.5-15.0The [facility] CenterComment on above:Order Comment: No: Do not add to previous drawPerformed By: #### 00754, 74847, 70487 #### [facility] [address] [place] [address], USAHematocrit (Bld) [Volume fraction]39.4 %Abftpe26.0-45.0The [facility] CenterComment on above:Order Comment: No: Do not add to previous drawPerformed By: #### 66416, 92563, 96843 #### [facility] [address] [place] [address], USAHemoglobin (Bld) [Mass/Vol]12.8 g/dVZrvuob37.0-15.0The [facility] CenterComment on above:Order Comment: No: Do not add to previous drawPerformed By: #### 43873, 40565, 68676 #### [facility] [address] [place] [address], USAIMMATURE GRANS0.4 %Normal0.0-1.0The [facility] CenterComment on above:Order Comment: No: Do not add to previous draw Performed By: #### 73691, 58037, 70904 #### [facility] [address] [place] [address], USALymphocytes (Bld) [#/Vol]1.8 10*3/uLNormal1.2-4.0The [facility] CenterComment on above:Order Comment: No: Do not add to previous drawPerformed By: #### 71248, 02566, 48866 #### [facility] [address] [place] [address], USALymphocytes/100 WBC (Bld)25.8 %Lukvdr32.0-45.0The [facility] CenterComment on above:Order Comment: No: Do not add to previous drawPerformed By: #### 08504, 27901, 64146 #### [facility] [address] [place] [address], RUSTMCH (RBC) [Entitic mass]29.8 ptBihtee19.0-33.0The [facility] CenterComment on above:Order Comment: No: Do not add to previous drawPerformed By: #### 88029, 22033, 26872 #### [facility] [address] [place] [address], USAMCHC (RBC) [Mass/Vol]32.5 g/oXMlgrru63.0-35.0The [facility] CenterComment on above:Order Comment: No: Do not add to previous drawPerformed By: #### 71685, 73750, 22643 #### [facility] [address] [place] [address], USAMCV (RBC) [Entitic vol]91.8 gRPryfhi95.0-98.0The [facility] CenterComment on above:Order Comment: No: Do not add to previous drawPerformed By: #### 46552, 53579, 14346 #### [facility] [address] [place] [address], USAMonocytes (Bld) [#/Vol]0.6 10*3/uLNormal0.1-1.0The [facility] CenterComment on above:Order Comment: No: Do not add to previous drawPerformed By: #### 98110, 79242, 76921 #### [facility] [address] [place] [address], USAMONOS8.7 %Normal5.0-12.0The [facility] CenterComment on above:Order Comment: No: Do not add to previous drawPerformed By: #### 14439, 44233, 00081 #### [facility] [address] [place] [address], USANeutrophils/100 WBC (Bld)62.5 %Vdpdwp39.0-72.0The [facility] CenterComment on above:Order Comment: No: Do not add to previous drawPerformed By: #### 08064, 47027, 36295 #### [facility] [address] [place] [address], USANucleated RBC/100 WBC (Bld) [Ratio]0 %Normal0-0The [facility] CenterComment on above:Order Comment: No: Do not add to previous drawPerformed By: #### 24565, 45459, 58532 #### [facility] [address] [place] [address], USAPLAT XHJ284 10*3/cCSichhq964-296Rgi [facility] CenterComment on above:Order Comment: No: Do not add to previous draw Performed By: #### 79610, 16956, 37872 #### [facility] [address] [place] [address], USARBC (Bld) [#/Vol]4.29 10*6/uLNormal3.80-5.00The [facility] CenterComment on above:Order Comment: No: Do not add to previous drawPerformed By: #### 77901, 60422, 63446 #### [facility] [address] [place] [address], USAWBC (Bld) [#/Vol]7.01 10*3/uLNormal4.00-10.60The [facility] CenterComment on above:Order Comment: No: Do not add to previous drawPerformed By: #### 98423, 99699, 76634 #### [facility] [address] [place] [address], USACardiovascular Lab Reporton [id number] Lab ReportUnDiley Ridge Medical Center Patient Name: [facility] Sil[facility] Neumann MR #: [id number] Department of Physician: Omar Atkinson M.D. Division of Service Date: 09/16/2020 Cardiology Birthdate: 1970 Adult Cardiovascular Room #: 3AB [id number] [facility] [address] [place], [place] [address] Cardiovascular Laboratory Report FINAL IMPRESSIONS: 1. Moderate [...] the left radial artery was obtained. A 6-Bolivian glide sheath was inserted without difficulty. Bilateral [...] 50% stenosis adjacent to a prominent septal heat treater head. It is a wrap-around left anterior descending. [...] Vizcarra M.D. Date Trans: 09/16/2020 10:43 A/mmo DN_JN:[id number] cc: Dariusz Keen M.D. [address] [place] [address] A [facility] [address]CdpccmPshSouthwest General Health Center METANEPHRINES, PLASMA 05832rk 06-54-0980IVKGWD METANEPH PLSee NoteSouthwest General Health CenterComment on above:Order Comment: No: Do not add [...] developed and its performance characteristics determined by [facility]. It has not been cleared or approved by the US Food and Drug Administration. This test was performed in a CLIA certified laboratory and is intended for clinical purposes. Performed By: [facility] [address] [place] [address] Drill Doctor: Adriana Cordoba, MDMETANEPHRINE PLASMA0.13 nmol/LNormal 0.00-0.49The [facility] CenterComment on above:Order Comment: No: Do not add to previous drawNORMETANEPHRINE PLASMA0.37 nmol/LNormal0.00-0.89 The [facility] CenterComment on above:Order Comment: No: Do not add to previous drawPOC GLUCOSE LABon 63-80-2040Greqnya [Mass/Vol]125 mg/dL Qukl50-155Nrl [facility] CenterComment on above:Performed By: #### 92013, 92243, 55294 #### [facility] [address] [place] [address], USAGlucose [Mass/Vol]147 mg/vYQxjj98-268Lcl [facility] CenterComment on above:Performed By: #### 46893, 41491, 77101 #### [facility] [address] [place] [address], USAGlucose [Mass/Vol]100 mg/iDWtrtvz32-457Vim [facility] CenterComment on above:Performed By: #### 25319, 70193, 36682 #### [facility] [address] [place] [address], USAGlucose [Mass/Vol]122 mg/lILxzz19-191Myr [facility] CenterComment on above:Performed By: #### 50303, 34038, 51395 #### [facility] [address] [place] [address], USAPTH INTACTon 01-84-2702OXI CJSELX42 pg/wDAcovqo65-74Tvt [facility] CenterComment on above:Order Comment: No: Do not add to previous drawPerformed By: #### 35250, 58906, 51164 #### [facility] [address] [place] [address], USARENIN ACTIVITY 97543zd 37-04-6586TQVLH ACTIVITY0.7 ng/mL/hr NormalThe [facility] CenterComment on above:Order Comment: No: Do not add [...] developed and its performance characteristics determined by [facility]. It has not been cleared or approved by the [place] Food and Drug Administration. This test was performed in a CLIA certified laboratory and is intended for clinical purposes. Performed By: [facility] [address] [place] [address] Drill Doctor: Adriana Cordoba MDTSH3 WITH REFLEX FT4on 35-04-4347RON 3RD GENERATION2.75 uIU/mLNormal0.34-5.60The [facility] Comment on above:Order Comment: No: Do not add to previous drawPerformed By: #### 39455, 59644, 46423 #### [facility] [address] [place] [address], RUSTUF HEPARIN ASSAYon 51-49-3473SJCDDUQTFSHCLL HEPARIN0.34 IU/mLNormal0.30-0.70The [facility] CenterComment on above: Result Comment: Rivaroxaban and Apixaban will interfere with the anti Xa assay used to monitor UFH and LMWH.Performed By: #### 00186 ####[facility] [facility].[address]*SARS-CoV-2 COVID-19on 09-15-2020 SARS-CoV-2 (COVID-19) RNA RAJINDER+probe Ql (Unsp spec)Not detectedNormalNot Detected The [facility] CenterComment on above:Order Comment: The Aptima SARS-CoV-2 assay is a nucleic acid amplification test intended for the qualitative detection of RNA from SARS-CoV-2 isolated and purified from nasopharyngeal (TC OPERATOR),oropharyngeal (OP), nasal swab, sputum, and bronchoalveolar lavage (BAL) specimens from patients with signs and symptoms of infection who are suspected of COVID-19. Results are for the identification of SARS-CoV-2 RNA. The SARS-CoV-2 RNA is generally detectable during the acute phase of infection. The Aptima SARS-CoV-2 Assay on the [employer] system is intended for use by laboratory personnel specifically instructed and trained in the operation of the [employer] and [employer] system. The Aptima SARS-CoV-2 assay is [...] patient history, and epidemiological information.Performed By: #### 95248 #### [facility] [address] [place] [address], USABASIC METABOLIC PANELon 64-28-3807Pcapcdw [Mass/Vol]9.1 mg/dLNormal8.6-10.3The [facility] CenterComment on above:Order Comment: No: Do not add to previous drawPerformed By: #### 39614, 78378 ####[facility] [place] [address], [place] Chloride [Moles/Vol]106 mmol/QLzqecg96-966Cvy [facility] CenterComment on above:Order Comment: No: Do not add to previous drawPerformed By: #### 40505, 32764 ####[facility] [place] [address], USACO2 [Moles/Vol]26 mmol/WNsygrr23-51Hec [facility] CenterComment on above:Order Comment: No: Do not add to previous drawPerformed By: #### 56734, 37182 ####[facility] [place] [address], USACreatinine [Mass/Vol]0.76 mg/dLNormal 0.60-1.20The [facility] CenterComment on above:Order Comment: No: Do not add to previous drawPerformed By: #### 89338, 37879 ####[facility] [place] [address], USAGFR/1.73 sq M.predicted among blacks MDRD (S/P/Bld) [Vol rate/Area]mL/min/{1.73_m2}Normal>60 The [facility] CenterComment on above:Order Comment: No: Do not add to previous drawPerformed By: #### 78484, 86514 ####[facility] [place] [address], USAGFR/1.73 sq M.predicted among non-blacks MDRD (S/P/Bld) [Vol rate/Area]mL/min/{1.73_m2}Normal>60The [facility] CenterComment on above:Order Comment: No: Do not add to previous drawPerformed By: #### 36758, 52773 ####[facility] [place] [address], USAGlucose [Mass/Vol]114 mg/uGFyvp63-665Cfy [facility] CenterComment on above:Order Comment: No: Do not add to previous drawPerformed By: #### 99896, 96533 ####[facility] [place] [address], [place] Potassium [Moles/Vol]3.8 mmol/LNormal3.5-5.1The [facility] CenterComment on above:Order Comment: No: Do not add to previous drawPerformed By: #### 63231, 01452 ####[facility] [place] [address], USASodium [Moles/Vol]140 mmol/QIsrfyb030-655Mtl [facility] CenterComment on above:Order Comment: No: Do not add to previous drawPerformed By: #### 91433, 28583 ####[facility] [place] [address], USAUrea nitrogen [Mass/Vol]11 mg/dL Normal7-25The [facility] CenterComment on above:Order Comment: No: Do not add to previous drawPerformed By: #### 89359, 08190 ####[facility] [place] [address], USACBC W/DIFFon 67-97-4169RCE IMM GRANS0.0 10*3/uLNormal0.0-0.2The [facility] CenterComment on above:Order Comment: No: Do not add to previous drawPerformed By: #### 27330, 54563, 87365 #### [facility] [address] [place] [address], USAABS NEUTROPHILS4.5 10*3/uLNormal1.6-7.6The [facility] CenterComment on above:Order Comment: No: Do not add to previous drawPerformed By: #### 64010, 16741, 71216 #### [facility] [address] [place] [address], USABasophils (Bld) [#/Vol]0.0 10*3/uLNormal0.0-0.2The [facility] CenterComment on above:Order Comment: No: Do not add to previous drawPerformed By: #### 00852, 10807, 97510 #### [facility] [address] [place] [address], USABasophils/100 WBC (Bld)0.4 %Normal0.0-1.0The [facility] CenterComment on above:Order Comment: No: Do not add to previous drawPerformed By: #### 86610, 16838, 29151 #### [facility] [address] [place] [address], USAEosinophils (Bld) [#/Vol]0.1 10*3/uLNormal0.0-0.5The [facility] CenterComment on above:Order Comment: No: Do not add to previous drawPerformed By: #### 81943, 00138, 17020 #### [facility] [address] [place] [address], USAEosinophils/100 WBC (Bld)1.8 %Normal0.0-6.0The [facility] CenterComment on above:Order Comment: No: Do not add to previous drawPerformed By: #### 28805, 31397, 00683 #### [facility] [address] [place] [address], USAErythrocyte distribution width (RBC) [Ratio]13.3 %Normal 11.5-15.0The [facility] CenterComment on above:Order Comment: No: Do not add to previous drawPerformed By: #### 58035, 66436, 87158 #### [facility] [address] [place] [address], USAHematocrit (Bld) [Volume fraction]42.1 %Xcjphn82.0-45.0The [facility] CenterComment on above:Order Comment: No: Do not add to previous drawPerformed By: #### 45491, 33371, 68761 #### [facility] [address] [place] [address], USAHemoglobin (Bld) [Mass/Vol]13.8 g/tLDvhcrl11.0-15.0The [facility] CenterComment on above:Order Comment: No: Do not add to previous drawPerformed By: #### 86668, 60030, 28846 #### [facility] [address] [place] [address], USAIMMATURE GRANS0.4 %Normal0.0-1.0The [facility] CenterComment on above:Order Comment: No: Do not add to previous draw Performed By: #### 61316, 07020, 29317 #### [facility] [address] [place] [address], USALymphocytes (Bld) [#/Vol]1.5 10*3/uLNormal1.2-4.0The [facility] CenterComment on above:Order Comment: No: Do not add to previous drawPerformed By: #### 78159, 72717, 15596 #### [facility] [address] [place] [address], USALymphocytes/100 WBC (Bld)21.5 %Gstuqo40.0-45.0The [facility] CenterComment on above:Order Comment: No: Do not add to previous drawPerformed By: #### 50781, 00645, 81253 #### [facility] [address] [place] [address], [facility] (RBC) [Entitic mass]29.8 zjOsliyw35.0-33.0The [facility] CenterComment on above:Order Comment: No: Do not add to previous drawPerformed By: #### 88560, 04744, 40285 #### [facility] [address] [place] [address], [facility] [place] [facility] (RBC) [Mass/Vol]32.8 g/iCAsyghr94.0-35.0The [facility] CenterComment on above:Order Comment: No: Do not add to previous drawPerformed By: #### 41699, 42431, 14709 #### [facility] [address] [place] [address], [facility] (RBC) [Entitic vol]90.9 lNGiegnl17.0-98.0The [facility] CenterComment on above:Order Comment: No: Do not add to previous drawPerformed By: #### 42153, 49231, 98835 #### [facility] [address] [facility] [address] [address], USAMonocytes (Bld) [#/Vol]0.7 10*3/uLNormal0.1-1.0The [facility] CenterComment on above:Order Comment: No: Do not add to previous drawPerformed By: #### 95033, 36420, 82817 #### [facility] [address] [place] [address], USAMONOS9.6 %Normal5.0-12.0The [facility] CenterComment on above:Order Comment: No: Do not add to previous drawPerformed By: #### 82687, 92188, 27722 #### [facility] [address] [place] [address], USANeutrophils/100 WBC (Bld)66.3 %Fnxnva66.0-72.0The [facility] CenterComment on above:Order Comment: No: Do not add to previous drawPerformed By: #### 22314, 68989, 40774 #### [facility] [address] [place] [address], USANucleated RBC/100 WBC (Bld) [Ratio]0 %Normal0-0The [facility] CenterComment on above:Order Comment: No: Do not add to previous drawPerformed By: #### 55608, 44978, 46846 #### [facility] [address] [place] [address], USAPLAT GFK276 10*3/kIGflshj355-885Jxn [facility] CenterComment on above:Order Comment: No: Do not add to previous draw Performed By: #### 38581, 58954, 93625 #### [facility] [address] [place] [address], USARBC (Bld) [#/Vol]4.63 10*6/uLNormal3.80-5.00The [facility] CenterComment on above:Order Comment: No: Do not add to previous drawPerformed By: #### 07670, 69918, 94110 #### [facility] [address] [place] [address], USAWBC (Bld) [#/Vol]6.85 10*3/uLNormal4.00-10.60The [facility] CenterComment on above:Order Comment: No: Do not add to previous drawPerformed By: #### 62700, 20041, 52144 #### [facility] [address] [place] [address], USAPOC GLUCOSE LABon 96-40-3192Zwynqbt [Mass/Vol]122 mg/dLHigh 70-100The [facility] CenterComment on above:Performed By: #### 31662, 95356, 18613 #### [facility] [address] [place] [address], USAGlucose [Mass/Vol]175 mg/yBDbvy35-969Axt [facility] CenterComment on above:Performed By: #### 50344, 74273, 20892 #### [facility] [address] [facility] [address], USATROPONIN-Ion 82-96-6600Upqbqdly I.cardiac [Mass/Vol]0.12 ng/mLCritically high0.00-0.04The [facility] CenterComment on above:Order Comment: No: Do not add to previous drawResult Comment: M-PREVIOUS CRITICAL RESULT REFERENCE RANGES: 0.00 - 0.04 ng/ml NORMAL 0.05 - 0.50 ng/ml INDETERMINATE > 0.50 ng/ml CONSISTENT WITH AN M.I.Performed By: #### 19806, 72421 ####[facility] [place] [address], [place] UFH HEPARIN ASSAYon 07-26-2147CUMTGEMZCHWXWI HEPARIN0.37 IU/mLNormal0.30-0.70The [facility] CenterComment on above:Result Comment: Rivaroxaban and Apixaban will interfere with the anti Xa assay used to monitor UFH and LMWH.Performed By: #### 16805 ####[facility] [place] [address], USABASIC METABOLIC PANELon 09-14-2020 Calcium [Mass/Vol]9.1 mg/dLNormal8.6-10.3The [facility] Comment on above:Order Comment: No: Do not add to previous drawPerformed By: #### 28022, 34233, 00260, 33498 ####[facility] [place] [address], USAChloride [Moles/Vol]104 mmol/QLgavip99-615Vvj [facility] CenterComment on above:Order Comment: No: Do not add to previous drawPerformed By: #### 97842, 29484, 50145, 87665 ####[facility] [place] [address], USACO2 [Moles/Vol] 29 mmol/XTsgpei75-34Lqx [facility] CenterComment on above: Order Comment: No: Do not add to previous drawPerformed By: #### 93919, 84930, 52104, 15038 ####[facility] [place] [address], USACreatinine [Mass/Vol]0.83 mg/dLNormal0.60-1.20The [facility] CenterComment on above:Order Comment: No: Do not add to previous drawPerformed By: #### 39159, 44167, 51633, 34433 ####[place] [address] [place] [address], USAGFR/1.73 sq M.predicted among blacks MDRD (S/P/Bld) [Vol rate/Area]mL/min/{1.73_m2}Normal>60The [facility] CenterComment on above:Order Comment: No: Do not add to previous drawPerformed By: #### 89293, 70960, 74633, 28222 ####[place] [address] [place] [address], USAGFR/1.73 sq M.predicted among non-blacks MDRD (S/P/Bld) [Vol rate/Area]mL/min/{1.73_m2} Normal>60The [facility] CenterComment on above:Order Comment: No: Do not add to previous drawPerformed By: #### 45856, 51253, 16763, 09062 ####[facility] [place] [address], [place] Glucose [Mass/Vol]107 mg/hILvuz90-399Qyi [facility] Comment on above:Order Comment: No: Do not add to previous drawPerformed By: #### 91719, 38115, 77920, 93218 ####[facility] [place] [address], USAPotassium [Moles/Vol]3.6 mmol/LNormal3.5-5.1 The [facility] CenterComment on above:Order Comment: No: Do not add to previous drawPerformed By: #### 30432, 43165, 60585, 39344 ####[facility] [place] [address], RUST Sodium [Moles/Vol]138 mmol/WOqwjmh500-879Oxt [facility] Comment on above:Order Comment: No: Do not add to previous drawPerformed By: #### 43704, 86597, 42947, 98152 ####[facility] [place] [address], RUSTUrea nitrogen [Mass/Vol]10 mg/dLNormal7-25The [facility] CenterComment on above:Order Comment: No: Do not add to previous drawPerformed By: #### 76391, 43728, 13786, 12635 ####[facility] [place] [address], RUSTCBC W/DIFFon 36-70-7987SXO IMM GRANS0.0 10*3/uLNormal0.0-0.2The [facility] CenterComment on above:Order Comment: No: Do not add to previous drawPerformed By: #### 86582, 87793, 89917 #### [facility] [address] [place] [address], USAABS NEUTROPHILS3.2 10*3/uLNormal1.6-7.6The [facility] CenterComment on above:Order Comment: No: Do not add to previous drawPerformed By: #### 56613, 83595, 81526 #### [facility] [address] [place] [address], RUSTBasophils (Bld) [#/Vol]0.0 10*3/uLNormal0.0-0.2The [facility] CenterComment on above:Order Comment: No: Do not add to previous drawPerformed By: #### 21614, 42377, 56399 #### [facility] [address] [place] [address], USABasophils/100 WBC (Bld)0.4 %Normal0.0-1.0The [facility] CenterComment on above:Order Comment: No: Do not add to previous drawPerformed By: #### 00459, 80229, 21528 #### [facility] [address] [place] [address], USAEosinophils (Bld) [#/Vol]0.2 10*3/uLNormal0.0-0.5The [facility] CenterComment on above:Order Comment: No: Do not add to previous drawPerformed By: #### 99574, 75294, 99689 #### [facility] [address] [place] [address], USAEosinophils/100 WBC (Bld)3.3 %Normal0.0-6.0The [facility] CenterComment on above:Order Comment: No: Do not add to previous drawPerformed By: #### 84615, 50875, 02670 #### [facility] [address] [facility] [place] [address], USAErythrocyte distribution width (RBC) [Ratio]13.4 %Normal 11.5-15.0The [facility] CenterComment on above:Order Comment: No: Do not add to previous drawPerformed By: #### 65109, 71845, 34835 #### [facility] [address] [place] [address], USAHematocrit (Bld) [Volume fraction]42.5 %Pntswl57.0-45.0The [facility] CenterComment on above:Order Comment: No: Do not add to previous drawPerformed By: #### 25238, 71488, 67250 #### [facility] [address] [place] [address], USAHemoglobin (Bld) [Mass/Vol]14.0 g/oKPwwwmr77.0-15.0The [facility] CenterComment on above:Order Comment: No: Do not add to previous drawPerformed By: #### 69612, 24410, 41735 #### [facility] [address] [place] [address], USAIMMATURE GRANS0.2 %Normal0.0-1.0The [facility] CenterComment on above:Order Comment: No: Do not add to previous draw Performed By: #### 73807, 74836, 97510 #### [facility] [address] [place] [address], USALymphocytes (Bld) [#/Vol]1.6 10*3/uLNormal1.2-4.0The [facility] CenterComment on above:Order Comment: No: Do not add to previous drawPerformed By: #### 83273, 92800, 31698 #### [facility] [address] [place] [address], USALymphocytes/100 WBC (Bld)28.2 %Ceaoih58.0-45.0The [facility] CenterComment on above:Order Comment: No: Do not add to previous drawPerformed By: #### 33040, 65718, 58999 #### [facility] [address] [place] [address], RUSTMCH (RBC) [Entitic mass]29.9 dzSmuweb25.0-33.0The [facility] CenterComment on above:Order Comment: No: Do not add to previous drawPerformed By: #### 27187, 22502, 74661 #### [facility] [address] [place] [address], RUSTMCHC (RBC) [Mass/Vol]32.9 g/hLKkotcd04.0-35.0The [facility] CenterComment on above:Order Comment: No: Do not add to previous drawPerformed By: #### 26837, 68215, 91811 #### [facility] [address] [place] [address], USAMCV (RBC) [Entitic vol]90.6 cBBxeogh64.0-98.0The [facility] CenterComment on above:Order Comment: No: Do not add to previous drawPerformed By: #### 80038, 01389, 55244 #### [facility] [address] [place] [address], USAMonocytes (Bld) [#/Vol]0.7 10*3/uLNormal0.1-1.0The [facility] CenterComment on above:Order Comment: No: Do not add to previous drawPerformed By: #### 21077, 05466, 02880 #### [facility] [address] [place] [address], WISHBCBT65.6 %Normal5.0-12.0The [facility] CenterComment on above:Order Comment: No: Do not add to previous drawPerformed By: #### 91344, 79177, 78457 #### [facility] [address] [place] [address], USANeutrophils/100 WBC (Bld)56.3 %Kshodx86.0-72.0The [facility] CenterComment on above:Order Comment: No: Do not add to previous drawPerformed By: #### 48926, 16241, 21442 #### [facility] [address] [place] [address], USANucleated RBC/100 WBC (Bld) [Ratio]0 %Normal0-0The [facility] CenterComment on above:Order Comment: No: Do not add to previous drawPerformed By: #### 50825, 14479, 18304 #### [facility] [address] [place] [address], USAPLAT RTR858 10*3/aJWweuet023-890Cmc [facility] CenterComment on above:Order Comment: No: Do not add to previous draw Performed By: #### 10340, 93602, 57525 #### [facility] [address] [place] [address], USARBC (Bld) [#/Vol]4.69 10*6/uLNormal3.80-5.00The [facility] CenterComment on above:Order Comment: No: Do not add to previous drawPerformed By: #### 33978, 04466, 27139 #### [facility] [address] [place] [address], USAWBC (Bld) [#/Vol]5.68 10*3/uLNormal4.00-10.60The [facility] CenterComment on above:Order Comment: No: Do not add to previous drawPerformed By: #### 25151, 67288, 63030 #### [facility] [address] [place] [address], USAMAGNESIUM BLOODon 88-51-4651Srwkinjtq [Mass/Vol]2.1 mg/dL Normal1.9-2.7The [facility] CenterComment on above:Order Comment: No: Do not add to previous drawPerformed By: #### 27862, 57262, 16553, 90469 ####[facility] [facility] [place] [address], USAPHOSPHORUS BLOODon 17-83-9917Fzaykbjqx [Mass/Vol]3.6 mg/dLNormal2.5-5.0The [facility] CenterComment on above:Order Comment: No: Do not add to previous drawPerformed By: #### 15453, 39337, 56387, 29999 ####[facility] [place] [address], RUSTPOC GLUCOSE LAB on 32-34-6428Pinvabj [Mass/Vol]134 mg/fEEyre15-276Ame [facility] CenterComment on above:Performed By: #### 58127, 82908, 89139 #### [facility] [address] [place] [address], USAGlucose [Mass/Vol]168 mg/oFXfzg26-564Lot [facility] CenterComment on above:Performed By: #### 58193, 39262, 89382 #### [facility] [address] [place] [address], USATROPONIN-Ion 66-16-9246Mflvktvd I.cardiac [Mass/Vol]0.29 ng/mLCritically high0.00-0.04The [facility] CenterComment on above:Result Comment: M-PREVIOUS CRITICAL RESULT REFERENCE RANGES: 0.00 - 0.04 ng/ml NORMAL 0.05 - 0.50 ng/ml INDETERMINATE > 0.50 ng/ml CONSISTENT WITH AN M.I.Performed By: #### 72703, 42869, 23309, 23353 ####[facility] [place] [address], USAUFH HEPARIN ASSAYon 66-14-0197ULIOJJHQSGZMDQ HEPARIN0.43 IU/mLNormal 0.30-0.70The [facility] CenterComment on above:Result Comment: Rivaroxaban and Apixaban will interfere with the anti Xa assay used to monitor UFH and LMWH.Performed By: #### 14221, 88467, 14822 #### [facility] [address] [place] [address], USAUNFRACTIONATED HEPARIN0.66 IU/mLNormal0.30-0.70The [facility] CenterComment on above:Result Comment: Rivaroxaban and Apixaban will interfere with the anti Xa assay used to monitor UFH and LMWH.Performed By: #### 83947 ####[facility] [place] [address], USAAPTTon 57-85-5823lFRR Coag (Bld) [Time]30.6 aEudodz83.0-35.0The [facility] CenterComment on above:Result Comment: ALL RESULTS MUST BE [...] BE USED FOR THIS PURPOSE.Performed By: #### 46491, 56279, 42612 ####[facility] [place] [address], [place] BASIC METABOLIC PANELon 80-76-4005Loskose [Mass/Vol]9.8 mg/dLNormal8.6-10.3The [facility] CenterComment on above:Order Comment: No: Do not add to previous drawPerformed By: #### 32212, 60268, 07522, 22719 ####[facility] [place] [address], USAChloride [Moles/Vol]104 mmol/MUmhwsz67-764Hlr [facility] CenterComment on above:Order Comment: No: Do not add to previous drawPerformed By: #### 30133, 95253, 66702, 14417 ####[facility] [place] [address], USACO2 [Moles/Vol]30 mmol/IBjkqoe69-25Pbr [facility] CenterComment on above:Order Comment: No: Do not add to previous drawPerformed By: #### 59817, 56668, 23327, 17907 ####[facility] [place] [address], USACreatinine [Mass/Vol]0.77 mg/dLNormal0.60-1.20The [facility] CenterComment on above: Order Comment: No: Do not add to previous drawPerformed By: #### 03151, 60520, 96940, 60209 ####[facility] [place] [address], USAGFR/1.73 sq M.predicted among blacks MDRD (S/P/Bld) [Vol rate/Area] mL/min/{1.73_m2}Normal>60The [facility] CenterComment on above:Order Comment: No: Do not add to previous drawPerformed By: #### 00009, 03536, 71495, 11259 ####[facility] [place] [address], USAGFR/1.73 sq M.predicted among non-blacks MDRD (S/P/Bld) [Vol rate/Area]mL/min/{1.73_m2}Normal>60The [facility] Comment on above:Order Comment: No: Do not add to previous drawPerformed By: #### 06235, 50402, 62854, 86521 ####[place] [address] [facility] [address], USAGlucose [Mass/Vol]85 mg/tAQpfpvh39-800Mns [facility] CenterComment on above:Order Comment: No: Do not add to previous drawPerformed By: #### 05586, 43426, 25632, 27174 ####[facility] [place] [address], USAPotassium [Moles/Vol]4.2 mmol/LNormal3.5-5.1The [facility] CenterComment on above:Order Comment: No: Do not add to previous drawPerformed By: #### 37121, 11170, 99829, 95052 ####[facility] [place] [address], USASodium [Moles/Vol]141 mmol/QIaflup923-567Dsn [facility] CenterComment on above:Order Comment: No: Do not add to previous drawPerformed By: #### 67567, 00154, 23711, 57669 ####[facility] [facility] [place] [address], USAUrea nitrogen [Mass/Vol]10 mg/dLNormal7-25The [facility] CenterComment on above:Order Comment: No: Do not add to previous drawPerformed By: #### 06507, 98282, 53453, 43831 ####[facility] [place] [address], USACBC COMPLETE BLOOD COUNTon 43-41-3226Ptkxwdgkpja distribution width (RBC) [Ratio]13.4 %Pvkhek14.5-15.0The [facility] CenterComment on above:Order Comment: No: Do not add to previous draw Performed By: #### 21361, 55214, 72097 #### [facility] [address] [place] [address], USAHematocrit (Bld) [Volume fraction]43.0 %Hyryka45.0-45.0The [facility] CenterComment on above:Order Comment: No: Do not add to previous drawPerformed By: #### 98609, 01759, 47054 #### [facility] [address] [place] [address], USAHemoglobin (Bld) [Mass/Vol]14.0 g/iXXvifro08.0-15.0The [facility] CenterComment on above:Order Comment: No: Do not add to previous drawPerformed By: #### 40188, 33525, 98216 #### [facility] [address] [place] [address], [facility] (RBC) [Entitic mass]29.5 skHoqzbt20.0-33.0The [facility] CenterComment on above:Order Comment: No: Do not add to previous drawPerformed By: #### 01530, 73070, 91002 #### [facility] [address] [place] [address], RUSTMCHC (RBC) [Mass/Vol]32.6 g/zNIfmnts50.0-35.0The [facility] CenterComment on above:Order Comment: No: Do not add to previous drawPerformed By: #### 16670, 20376, 47775 #### [facility] [address] [place] [address], USAMCV (RBC) [Entitic vol]90.7 kOWdtykg67.0-98.0The [facility] CenterComment on above:Order Comment: No: Do not add to previous drawPerformed By: #### 42335, 80781, 26552 #### [facility] [address] [place] [address], USANucleated RBC/100 WBC (Bld) [Ratio]0 %Normal0-0The [facility] CenterComment on above:Order Comment: No: Do not add to previous drawPerformed By: #### 03392, 39163, 36049 #### [facility] [address] [place] [address], USAPLAT QAG366 10*3/iGJklcts467-308Vsq [facility] CenterComment on above:Order Comment: No: Do not add to previous draw Performed By: #### 16329, 07219, 82456 #### [facility] [address] [place] [address], USARBC (Bld) [#/Vol]4.74 10*6/uLNormal3.80-5.00The [facility] CenterComment on above:Order Comment: No: Do not add to previous drawPerformed By: #### 04302, 65523, 65913 #### [facility] [address] [place] [address], USAWBC (Bld) [#/Vol]5.39 10*3/uLNormal4.00-10.60The [facility] CenterComment on above:Order Comment: No: Do not add to previous drawPerformed By: #### 74336, 91250, 49341 #### [facility] [address] [place] [address], USAMAGNESIUM BLOODon 06-22-6537Fwskxoqbr [Mass/Vol]2.1 mg/dL Normal1.9-2.7The [facility] CenterComment on above:Order Comment: No: Do not add to previous drawPerformed By: #### 07829, 41598, 88644, 26797 ####[facility] [place] [address], USAPHOSPHORUS BLOODon 22-98-5769Ehapvgmyj [Mass/Vol]4.0 mg/dLNormal2.5-5.0The [facility] CenterComment on above:Order Comment: No: Do not add to previous drawPerformed By: #### 81049, 75993, 87787, 20170 ####[facility] [place] [address], USAPROTHROMBIN TIME on 67-12-8351HOL Coag (PPP) [Relative time]0.92 {INR}Normal0.91-1.16The [facility] CenterComment on above:Result Comment: ACCCP RECOMMENDED INR FOR [...] OPTIMAL THERAPEUTIC RANGE. CHEST 1995;108:231S-246S.Performed By: #### 47160, 75650, 90045 ####[facility] [place] [address], USAPT Coag (PPP) [Time]12.4 fLxzyvl48.3-14.8The [facility] CenterComment on above:Result Comment: ALL RESULTS MUST BE INTERPRETED WITH RESPECT TO BLOOD DRAWING ARTIFACT OR DILUTION ERROR OF ANTICOAGULANT AT THE TIME OF SAMPLING.Performed By: #### 81750, 99204, 46421 ####[facility] [place] [address], USATROPONIN-Ion 40-08-6922Zrhinmnn I.cardiac [Mass/Vol] 0.37 ng/mLCritically high0.00-0.04The [facility] CenterComment on above:Order Comment: No: Do not add to previous drawResult Comment: M- TROPONIN INITIAL CRITICAL HIGH; RESPUN AND RETESTED M-CRITICAL RESULT(S) REVIEWED, CALLED TO AND READ BACK BY SHERRIE SPRAGUE RN AT 2254. REFERENCE RANGES: 0.00 - 0.04 ng/ml NORMAL 0.05 - 0.50 ng/ml INDETERMINATE > 0.50 ng/ml CONSISTENT WITH AN M.I.Performed By: #### 57535, 59403, 17867, 16237 ####[facility] [place] [address], USAUFH HEPARIN ASSAYon 29-08-6901JHSQWATIMAYEEU HEPARIN<0.10Critically low 0.30-0.70The [facility] CenterComment on above:Result Comment: Rivaroxaban and Apixaban will interfere with the anti Xa assay used to monitor UFH and LMWH. RESULTS CHECKED AND CALLED. ACCURATELY READ BACK BY Sherrie Sprague RN at 2228.Performed By: #### 11683, 48592, 44329 ####[facility] [place] [address], USACBC COMPLETE BLOOD COUNTon 47-74-2493Kpjvqlsclyt distribution width (RBC) [Ratio]13.5 %Normal 11.5-15.0The [facility] CenterComment on above:Order Comment: No: Do not add to previous drawPerformed By: #### 92406, 38248, 69103 #### [facility] [address] [place] [address], USAHematocrit (Bld) [Volume fraction]36.2 %Ruxtcw17.0-45.0The [facility] CenterComment on above:Order Comment: No: Do not add to previous drawPerformed By: #### 60346, 00249, 71353 #### [facility] [address] [place] [address], USAHemoglobin (Bld) [Mass/Vol]12.1 g/aBTboitv88.0-15.0The [facility] CenterComment on above:Order Comment: No: Do not add to previous drawPerformed By: #### [id number] #### [facility] [address] [place] [address], [facility] (RBC) [Entitic mass]30.0 lqWzkuqk71.0-33.0The [facility] CenterComment on above:Order Comment: No: Do not add to previous drawPerformed By: #### [id number], [id number] #### [facility] [address] [place] [address], [facility] ([facility]) [Mass/Vol]33.4 g/jOHqfrlc64.0-35.0The [facility] CenterComment on above:Order Comment: No: Do not add to previous drawPerformed By: #### [id number], [id number] #### [facility] [address] [facility] [address], [facility] ([facility]) [Entitic vol]89.6 pQAiuknu09.0-98.0The [facility] CenterComment on above:Order Comment: No: Do not add to previous drawPerformed By: #### 76267, 84758, 36021 #### [facility] [address] [place] [address], USANucleated RBC/100 WBC (Bld) [Ratio]0 %Normal0-0The [facility] CenterComment on above:Order Comment: No: Do not add to previous drawPerformed By: #### 33866, 56331, 15359 #### [facility] [address] [place] [address], USAPLAT CIE806 10*3/nMKaoacd090-794Ies [facility] CenterComment on above:Order Comment: No: Do not add to previous draw Performed By: #### 81986, 33312, 12523 #### [facility] [address] [place] [address], USARBC (Bld) [#/Vol]4.04 10*6/uLNormal3.80-5.00The [facility] CenterComment on above:Order Comment: No: Do not add to previous drawPerformed By: #### 98958, 66266, 06161 #### [facility] [address] [place] [address], USAWBC (Bld) [#/Vol]6.91 10*3/uLNormal4.00-10.60The [facility] CenterComment on above:Order Comment: No: Do not add to previous drawPerformed By: #### 96082, 18549, 39648 #### [facility] [address] [place] [address], USACOMP METABOLIC PANELon 24-98-5090Jiupmhk [Mass/Vol]3.4 g/dL Low3.5-5.7The [facility] CenterComment on above:Order Comment: No: Do not add to previous drawPerformed By: #### 87331 #### [facility] [address] [place] [address], USAALKALINE UJRBAI07 IU/VEohsiw45-519Bdu [facility] CenterComment on above:Order Comment: No: Do not add to previous draw Performed By: #### 29850 #### [facility] [address] [place] [address], USAALT [Catalytic activity/Vol]12 U/LNormal7-52The [facility] CenterComment on above:Order Comment: No: Do not add to previous drawPerformed By: #### 47705 #### [facility] [address] [place] [address], USAAST [Catalytic activity/Vol]16 U/WMzecpj43-47Nhm [facility] CenterComment on above:Order Comment: No: Do not add to previous drawPerformed By: #### 53361 #### [facility] [address] [place] [address], USABilirubin [Mass/Vol]0.3 mg/dLNormal0.3-1.0The [facility] CenterComment on above:Order Comment: No: Do not add to previous drawPerformed By: #### 31564 #### [facility] [address] [place] [address], USACalcium [Mass/Vol]8.6 mg/dLNormal8.6-10.3The [facility] CenterComment on above:Order Comment: No: Do not add to previous drawPerformed By: #### 49814 #### [facility] [address] [place] [address], USAChloride [Moles/Vol]107 mmol/ZUbxpwv62-879Ztq [facility] CenterComment on above:Order Comment: No: Do not add to previous drawPerformed By: #### 59681 #### [facility] [address] [place] [address], USACO2 [Moles/Vol]25 mmol/JEywonl87-40Ved [facility] CenterComment on above:Order Comment: No: Do not add to previous draw Performed By: #### 03852 #### [facility] [address] [place] [address], USACreatinine [Mass/Vol]0.72 mg/dLNormal0.60-1.20The [facility] CenterComment on above:Order Comment: No: Do not add to previous drawPerformed By: #### 87852 #### [facility] [address] [place] [address], USAGFR/1.73 sq M.predicted among blacks MDRD (S/P/Bld) [Vol rate/Area]mL/min/{1.73_m2}Normal>60The [facility] Comment on above:Order Comment: No: Do not add to previous drawPerformed By: #### 51533 #### [facility] [address] [place] [address], USAGFR/1.73 sq M.predicted among non-blacks MDRD (S/P/Bld) [Vol rate/Area]mL/min/{1.73_m2}Normal>60The [facility] Comment on above:Order Comment: No: Do not add to previous drawPerformed By: #### 05746 #### [facility] [address] [place] [address], USAGlucose [Mass/Vol]117 mg/bXVhuh20-038Suy [facility] CenterComment on above:Order Comment: No: Do not add to previous drawPerformed By: #### 55220 #### [facility] [address] [place] [address], USAPotassium [Moles/Vol]3.5 mmol/LNormal3.5-5.1The [facility] CenterComment on above:Order Comment: No: Do not add to previous drawPerformed By: #### 67850 #### [facility] [address] [place] [address], USAProtein [Mass/Vol]5.9 g/dLLow6.0-8.3The [facility] CenterComment on above:Order Comment: No: Do not add to previous drawPerformed By: #### 82670 #### [facility] [address] [place] [address], USASodium [Moles/Vol]138 mmol/ZVhxmci040-582Kbf [facility] CenterComment on above:Order Comment: No: Do not add to previous drawPerformed By: #### 75746 #### [facility] [address] [place] [address], USAUrea nitrogen [Mass/Vol]14 mg/dLNormal7-25The [facility] CenterComment on above:Order Comment: No: Do not add to previous drawPerformed By: #### 47773 #### [facility] [address] [place] [address], USABASIC METABOLIC PANELon 86-88-9063Cpwpytw [Mass/Vol]9.6 mg/dLNormal8.6-10.3The [facility] CenterComment on above: Performed By: #### 67978, 83720, 63267 #### [facility] [address] [place] [address], USAChloride [Moles/Vol]103 mmol/FEuxkak50-116Rjv [facility] CenterComment on above:Performed By: #### 38041, 58052, 72721 #### [facility] [address] [place] [address], USACO2 [Moles/Vol]28 mmol/MErtlrh48-57Pqw [facility] CenterComment on above:Performed By: #### 31801, 58964, 69759 #### [facility] [address] [place] [address], USACreatinine [Mass/Vol]0.77 mg/dLNormal0.60-1.20The [facility] CenterComment on above:Performed By: #### 37350, 43475, 02429 #### [facility] [address] [place] [address], USAGFR/1.73 sq M.predicted among blacks MDRD (S/P/Bld) [Vol rate/Area]mL/min/{1.73_m2}Normal>60The [facility] Comment on above:Performed By: #### 12429, 14309, 15457 #### [facility] [address] [place] [address], USAGFR/1.73 sq M.predicted among non-blacks MDRD (S/P/Bld) [Vol rate/Area]mL/min/{1.73_m2}Normal>60The [facility] Comment on above:Performed By: #### 05441, 58790, 35528 #### [facility] [address] [place] [address], USAGlucose [Mass/Vol]116 mg/wEZxmp95-054Zqj [facility] CenterComment on above:Performed By: #### 57667, 51461, 99065 #### [facility] [address] [place] [address], USAPotassium [Moles/Vol]3.7 mmol/LNormal3.5-5.1The [facility] CenterComment on above:Performed By: #### 09015, 77161, 85642 #### [facility] [address] [place] [address], USASodium [Moles/Vol]139 mmol/NWxcjme464-576Fvt [facility] CenterComment on above:Performed By: #### 68429, 90275, 98744 #### [facility] [address] [place] [address], USAUrea nitrogen [Mass/Vol]14 mg/dLNormal7-25The [facility] CenterComment on above:Performed By: #### 24628, 20406, 46963 #### [facility] [address] [place] [address], USACBC COMPLETE BLOOD COUNTon 21-48-7012Jzkttlmiedu distribution width (RBC) [Ratio]13.5 %Rmsequ84.5-15.0The [facility] CenterComment on above:Performed By: #### 95034 ####[facility] [place] [address], RUSTHematocrit (Bld) [Volume fraction]42.5 %Vvmcyi39.0-45.0The [facility] CenterComment on above:Performed By: #### [address]645 ####[place] [address], RUSTHemoglobin (Bld) [Mass/Vol]13.9 g/dLNormal 12.0-15.0The [facility] CenterComment on above:Performed By: #### [address] ####[place] [address], [facility] (RBC) [Entitic mass]29.6 cbOvamrk76.0-33.0The [facility] CenterComment on above:Performed By: #### 10317 ####[place] [address], RUSTMCHC (RBC) [Mass/Vol]32.7 g/tFCmhyfr95.0-35.0The [facility] CenterComment on above: Performed By: #### 26691 ####[place] [address], [facility] [place] [facility] (RBC) [Entitic vol]90.4 hMInimvb81.0-98.0The [facility] CenterComment on above:Performed By: #### 00032 ####[address] [place] [address], RUST Nucleated RBC/100 WBC (Bld) [Ratio]0 %Normal0-0The [facility] Health CenterComment on above:Performed By: #### 80308 ####[address] [place] [address], RUSTPLAT BEH745 10*3/wGBiupot238-726 The [facility] Health CenterComment on above:Performed By: #### 30536 ####[facility] [place] [address], RUST RBC (Bld) [#/Vol]4.70 10*6/uLNormal3.80-5.00The [facility] CenterComment on above:Performed By: #### 97341 ####[facility] [place] [address], RUSTWBC (Bld) [#/Vol]9.92 10*3/uL Normal4.00-10.60The [facility] CenterComment on above: Performed By: #### 80713 ####[facility] [place] [address], RUSTCardiovascular Lab Reporton [id number] Lab ReportUnDiley Ridge Medical Center [facility] MR #: [id number] Department of Physician: Adalid Keyes M.D. Division of Service Date: 11/09/2019 Cardiology Birthdate: 1970 Adult Cardiovascular Room #: [facility] [address] [place], [place] [address] Cardiovascular Laboratory Report INDICATIONS: The patient is [...] informed consent. She was brought to laboratory coordinator in a fasting state. Both groin areas were prepped and draped in usual fashion. Using ultrasound guidance and micropuncture technique, the right and left common femoral veins were accessed and a 6-Bolivian x 11 cm sheath was placed on the right and 11-Bolivian x 11 cm sheath was placed on the left. Heparin was given intravenously and therapeutic ACT confirmed during the rest of the procedure. A AcuNav 10-Bolivian intracardiac echocardiography catheter was advanced through the left femoral venous access and used to perform baseline imaging of the cardiac structures with identification of the interatrial septum and measurement of the rims. A 6-Bolivian multipurpose catheter was advanced over a J-tipped wire and under fluoroscopy and intracardiac echocardiography guidance, the patent foramen ovale was crossed and a wire was advanced to the left superior pulmonary vein. Position was confirmed by pulmonary venous angiography. The catheter was advanced and then used to place an exchange length J-tipped Amplatz Super Stiff wire over which the 9-Bolivian Amplatzer delivery sheath was advanced to the [...] The delivery sheath was exchanged to a 9-Bolivian x 11 cm sheath. The intracardiac echocardiography [...] Keyes M.D. Date Trans: 11/09/2019 11:14 A/mario DN_[id number] cc: Debi Leon D.O. [facility] [address] [address] Dariusz Keen M.D. [address] [place], [place] [address] Vital Signs Date TimeVital SignValuePerforming WjyebaivgQaguyymj84-32-9235 09:02-0400 Diastolic blood qfwgdxev82 mm[Hg]Benson Romero MD Work Phone: [facility]10-08-2025 09:02-0400 Heart rate64 /minBenson Romero MD Work Phone: [facility]10-08-2025 09:02-0400 Systolic blood chedkqob318 mm[Hg]Benson Romero MD Work Phone: [phone]10-08-2025 08:53-0400 Body .56 cmBenson Romero MD Work Phone: [facility]10-08-2025 08:53-0400 Body mass index (BMI) [Ratio]35.6 kg/n8KlxugyBenson Romero MD Work Phone: [facility]10-08-2025 08:53-0400 Body fiatpk83.34 kgBenson Romero MD Work Phone: [facility]02-12-2025 09:14-0500 Body ulnhax295.56 cmK[facility]02-12-2025 09:14-0500Body mass index (BMI) [Ratio]35 kg/c2TegfbcwlcKettering Health [facility]02-12-2025 09:14-0500Body phherg14.53 kgK[facility]tering Health [facility]02-12-2025 09:14-0500Diastolic blood fjeibmnh87 mm[Hg][facility] 05-17-2024 09:14-0500Heart rate57 /[facility] 05-17-2024 09:14-0500Systolic blood hmvwyjxi649 mm[Hg][facility]02-08-2025 09:45-0500Diastolic blood nakgyoxr60 mm[Hg][facility]02-08-2025 09:45-0500Systolic blood mm[Hg][facility]02-08-2025 09:04-0500Body zoewhe804.56 cmK[facility]02-08-2025 09:04-0500Body mass index (BMI) [Ratio]35.2 kg/h7HsosgfvhoKettering Health [facility]02-08-2025 09:04-0500Body ogurkcwopea17 [degF][facility]02-08-2025 09:04-0500Body guymnd48.15 kg [facility]02-08-2025 09:04-0500Heart rate74 /[facility]02-08-2025 09:04-0500Respiratory rate16 /[facility]02-08-2025 09:04-6683LkL8% (BldA) [Mass fraction]98 % [facility]11-26-2024 08:39-0500Body tlnzfu450.56 cm [facility]11-26-2024 08:39-0500Body mass index (BMI) [Ratio]36.3 kg/p4OnheugybbKettering Health [facility]11-26-2024 08:39-0500Body zsdahd03.16 kgK[facility]tering Health [facility]11-26-2024 08:39-0500Diastolic blood vvulijhh72 mm[Hg][facility]11-26-2024 08:39-0500 Heart rate60 /[facility]11-26-2024 08:39-0500Systolic blood inodjqzi466 mm[Hg][facility]09-24-2024 12:46-0400 Body uewlji266.56 cmKettering Health [facility]09-24-2024 12:46-0400Body mass index (BMI) [Ratio]35.9 kg/s7YlaxgrcdbKettering Health [facility]09-24-2024 12:46-0400Body rrdzjfpejvm43.3 [degF][facility]09-24-2024 12:46-0400Body dqoukf92.8 kgKettering Health [facility]09-24-2024 12:46-0400Diastolic blood pmodbvvh367 mm[Hg][facility] 12-28-2023 12:46-0400Heart rate82 /[facility] 12-28-2023 12:46-0400Respiratory rate16 /[facility] 12-28-2023 12:46-4769GuE0% (BldA) [Mass fraction]98 %[facility]09-24-2024 12:46-0400Systolic blood xmcyfdaz226 mm[Hg][facility]07-08-2024 13:18-0400Diastolic blood yhrdobay533 mm[Hg][facility]07-08-2024 13:18-0400Heart rate64 /minThomas Melania [facility]07-08-2024 13:18-0400 Respiratory rate18 /minThomas Melania [facility]07-08-2024 13:18-2588EvR8% (BldA) [Mass fraction]96 %[facility]let [facility]07-08-2024 13:18-0400 Systolic blood mm[Hg][facility]let [facility]07-08-2024 09:52-0400Body bqjnmy848.56 cmK[facility] Health [facility]07-08-2024 09:52-0400Body mass index (BMI) [Ratio]35.5 kg/a9TtqoybjclKettering Health [facility]07-08-2024 09:52-0400Body ltguta26.89 kgKettering Health [facility]07-08-2024 09:52-0400Diastolic blood lqqehkxk08 mm[Hg][facility] 10-11-2023 09:52-0400Heart rate57 /minK[facility]tering Health [facility] 10-11-2023 09:52-0400Systolic blood oxsrgrbv577 mm[Hg][facility]06-11-2024 10:06-0400Body miebhw684.56 cmK[facility]tering [facility]06-11-2024 10:06-0400Body mass index (BMI) [Ratio]36 kg/m1OkqdbflimKettering Health [facility]06-11-2024 10:06-0400Body wayamq50.25 kgK[facility]tering Health [facility]05-28-2024 08:35-0400Body iiytyc281.56 cmK[facility]tering [facility]05-28-2024 08:35-0400Body mass index (BMI) [Ratio]36 kg/u9ZjplmaatsKettering Health [facility]05-28-2024 08:35-0400Body yrsthn15.25 kg [facility]05-28-2024 08:35-0400Diastolic blood knebegpd06 mm[Hg][facility]05-28-2024 08:35-0400Heart rate61 /min [facility]05-28-2024 08:35-0400Systolic blood mm[Hg][facility]12-18-2023 07:14-0500Blood Pressure Shantell Contreras [facility]12-18-2023 07:14-0500 Diastolic blood gnoxfulr65 mm[Hg]Jairo Contreras [facility]12-18-2023 07:14-0500Heart rate66 /minJairo [facility]reras [facility]12-18-2023 07:14-0500 Respiratory rate16 /minRyan Ben [address] [place], [place] [address]12-18-2023 07:14-0317FlW2% (BldA) [Mass fraction]98 %Jairo Contreras [address] [place], [place] 3521812-18-2023 07:14-0500 Systolic blood bswhumjt495 mm[Hg]Jairo Contreras [address]12-15-2023 12:54-0500Blood Pressure LocationRyan Ben [address]12-15-2023 12:54-0500 Diastolic blood fwxqfice150 mm[Hg]Jairo Contreras [address]12-15-2023 12:54-0500Heart rate71 /minTeoan Ben [address] [place], [place] 352[address]12-15-2023 12:54-2081SsN7% (BldA) [Mass fraction]97 %Jairo Contreras [address] [place], [place] 3521812-15-2023 12:54-0500 Systolic blood usdrzbbn641 mm[Hg]Jairo Contreras [address] [place], [place] 352[address]12-14-2023 13:15-0500Body higmtl070.56 cmBenson Romero Other [employer] Other 12-14-2023 13:15-0500Body mass index (BMI) [Ratio] 36.21 kg/a6NyjmqtBenson Romero Other [facility] [employer] Other 12-14-2023 13:15-0500Body teaqvu05.71 kgBenson Romero Other [facility] [employer] Other 12-14-2023 13:15-0500Diastolic blood dahexgmq25 mm[Hg] Benson Romero Other [employer] Other 12-14-2023 13:15-4589EcY2% (BldA) [Mass fraction]97 % Benson Romero Other [employer] Other 12-14-2023 13:15-0500Systolic blood etgyceod605 mm[Hg] Benson Romero Other [employer] Other 08-29-2023 13:00-0400Body aivjau684.56 cmBenson Romero Other [employer] Other 08-29-2023 13:00-0400Body mass index (BMI) [Ratio] 34.67 kg/h0MeephkBenson Romero Other [employer] Other 08-29-2023 13:00-0400Body anesif12.63 kgBenson Romero Other [employer] Other 08-29-2023 13:00-0400Diastolic blood oqhyeuqv25 mm[Hg] Benson Romero Other [employer] Other 08-29-2023 13:00-0400Systolic blood alxdqxqe105 mm[Hg] Benson Romero Other [employer] Other 06-22-2023 12:51-0400Diastolic blood wvmeqjkt466 mm[Hg]Jairo [facility]06-22-2023 12:51-0400Mean blood aanimtle528 mm[Hg]Jairo [facility]reras [facility]06-22-2023 12:51-0400 Systolic blood btiflbsf178 mm[Hg]Jairo Contreras [address] [place], [place] [id number] 12:42-0400Blood Pressure LocationJairo Contreras [address] [place], [place] [id number] 12:42-0400 Diastolic blood dnwhmxam374 mm[Hg]Jairo Contreras [address] [place], [place] [id number] 12:42-0400Heart rate76 /minRyan Ben [address] [place], [place] [id number] 12:42-0400 Respiratory rate18 /minRyeri Contreras [address] [place], [place] [id number] 12:42-3182RzS8% (BldA) [Mass fraction]96 %Jairo Contreras [address] [place], [place] 3864306-22-2023 12:42-0400 Systolic blood ouclggwt444 mm[Hg]Jairo Contreras [address] [place], [place] 3864301-04-2023 09:16-0500Blood Pressure Locationeri Contreras [address] [place], [place] 3864301-04-2023 09:16-0500Body iicelhsnqly43.24 [degF]Jairo Ben [address] [place], [place] [id number] 09:16-0500 Diastolic blood ubynipwg231 mm[Hg]Jairo Teaganerson [address] [place], [place] 3864301-04-2023 09:16-0500Heart rate76 /minRyan Teaganerson [address] [place], [place] [id number] 09:16-0500 Respiratory rate16 /minRyan Ben [address] [place], [place] [id number] 09:16-2352HzS8% (BldA) [Mass fraction]98 %Jairo Ben [address]01-04-2023 09:16-0500 Systolic blood xctuwgaw479 mm[Hg]Jairo Teaganerson [address] [place], [place] [id number] 13:48-0500 Diastolic blood xolsoank267 mm[Hg]Jairo Víctoroffdao [address] [place], [place] [id number] 13:48-0500Mean blood mm[Hg]Jairo Ben [address]12-29-2022 13:48-0500 Systolic blood grjqoate664 mm[Hg]Jairo Ben [address] [place], [place] [id number] 13:32-0500Blood Pressure LocationRyan Ben [address] [place], [place] [id number] 13:32-0500 Diastolic blood roohkqax635 mm[Hg]Jairo Ben [address] [place], [place] [id number] 13:32-0500Heart rate80 /minRyan Ben [address] [place], [place] [id number] 13:32-0500 Respiratory rate18 /minRyan Ben [address] [place], [place] 3521812-29-2022 13:32-7484PxD3% (BldA) [Mass fraction]98 %Jairo Ben [address] [place], [place] 3521812-29-2022 13:32-0500 Systolic blood tiwonith277 mm[Hg]Jairo Candelariadao [address] [place], [place] [id number] 09:13-0500 Diastolic blood yusddjid29 mm[Hg]Dariusz Keen Work Phone: [phone]-Okudy [place] [facility] [address] DO Work Phone: 1([phone] 09:13-0500Systolic blood miortzmi621 mm[Hg] Dariusz Keen Work Phone: [phone]) [phone]-Cklxz [place] [facility] [address] DO Work Phone: 1(656) [phone] 08:57-0500Body .56 cmKim Jenna Keen Work Phone: 1([phone]) [phone]-Ztmcd [place] [facility] [address] DO Work Phone: 1(396) [phone] 08:57-0500Body mass index (BMI) [Ratio] 36.39 kg/m2Kijeffery Keen Work Phone: [phone]) [phone]-Bhagw [place] [facility] [address] DO Work Phone: 1(666) 539-520012-15-2021 08:57-0500Body surface area Derived from formula2.01 m2Kijeffery Keen Work Phone: 1(450) [phone]-Rpxxk [facility] [facility] [address] DO Work Phone: 1(689) [phone] 08:57-0500Body trbvau14.16 kgKi Jenna Keen Work Phone: 1(336) [phone]-Izite [place] [facility] [facility] [address] DO Work Phone: 1(309) [phone] 08:57-0500Diastolic blood iqdukjgw176 mm[Hg]Dariusz Keen Work Phone: 1(966) [phone]-Abfmg [place] [facility] [facility] [address] DO Work Phone: 1(260) [phone] 08:57-0500Heart rate74 /minKim Jenna Keen Work Phone: [phone]-Tlemz [place] [facility] [address] DO Work Phone: 1(610) [phone] 08:57-0500Systolic blood pbfriciv376 mm[Hg] Dariusz Keen Work Phone: 1([phone]) [phone]-Inupr [place] [facility] [address] DO Work Phone: Encounters Encounter DateEncounter TypeCare ProviderFacilityStart: 01-10-2025 End: 86-92-0391yikgrcxabzWlhsda E Braun MD Work Phone: [facility] Work Phone: Start: 01-10-2025 End: 50-15-1168Jjprmig encounter procedureBenson Romero MD-[facility] Work Phone: Start: 98-25-3492ecobljgxeoBancie A SteinFacility:[facility] Start: 12-16-2024 End: 59-09-3512Ydfrpifbh department patient visitSamuel GhencianFacility:[facility] Start: 32-62-5241Ujc-patient / Non-visitCatherine Sebastian [facility] Work Phone: Start: 05-17-2024 End: 37-16-1341wxqpckzkjfBlwbqkndlSalem [facility] Work Phone: Start: 05-17-2024 End: 39-34-7615Zjstzzf encounter procedureFirwashingtons Physician Group-[facility] Work Phone: Start: 05-13-2024 End: 92-60-7245xcofvyoduvExnphtrebSalem Regional Medical Center Work Phone: Start: 05-13-2024 End: 68-01-1950Ptwliet encounter procedureFirwashingtons Physician Group-[facility] Work Phone: Start: 04-49-0734Cnx-patient / Non-visitFirelands Physician Group-[facility] Work Phone: Start: 02-29-2024 End: 63-11-8587Yjdjaqk encounter procedureFirelands Physician Group-[facility] Work Phone: Start: 25-71-3997Xuu-patient / Non-visitFirelands Physician Group-[facility] Work Phone: Start: 12-28-2023 End: 97-67-5058rxlqhcvodtOmrixzekqZanesville City Hospital Work Phone: Start: 12-28-2023 End: [id number] encounter procedureFirelands Physician Group-[facility] Work Phone: Start: 10-11-2023 End: [id number] encounter procedureMichelet Vel[facility] Start: 10-11-2023 End: [id number]ville City Hospital Work Phone: Start: 10-11-2023 End: [id number] encounter procedureDavidrappahannock general hospital [facility] Work Phone: Start: 09-14-2023 End: [id number]ville City Hospital Work Phone: Start: 09-14-2023 End: [id number] encounter procedureDavidrappahannock general hospital Physician Group-[facility] Work Phone: Start: 08-31-2023 End: 61-39-5252bnerjyyakoHevyqazduZanesville City Hospital Work Phone: Start: 08-31-2023 End: 79-13-5048Xpswvrb encounter procedureDavidrappahannock general hospital [facility] Work Phone: Start: 04-06-2023 End: 98-54-2454ovfoabimzjJpwcjr Braun Other [place] Other Start: 98-14-5618Lrxompskt encounterBenson RomeroFrankie [facility]tart: 03-22-2023 End: 73-64-2032Atreuhizx to same day surgery Brian Contreras [facility] Start: 03-19-2023 End: 29-63-5287Brtwkzg encounter Madeleine Contreras [facility] Start: 03-18-2023 End: 88-56-5599jaxyytaesgPzoqqa Braun Other noLocalGuiding [place] Other Start: 18-32-2047Lddpojt encounter procedureBenson RomeroFrankie Mcelroy [facility]: 12-23-2022 End: 70-12-7181cfxegayzjfIzrqsv Romero Other [facility] [place] Other Start: 52-17-3455Pyzhmqfdm encounterBenson RomeroFrankie Mcelroy [facility]: 12-01-2022 End: 00-03-1146qnxdndoqmfRaixde Romero Other [facility] [place] Other Start: 92-15-5007Akergx outpatient new 45 minutes [facility] 10-12-2022 End: 21-77-6911Hyhavwu encounter procedureJairo Contreras [facility] Start: 09-24-2022 End: 75-83-1908Mrqqmrj encounter Madeleine Contreras [facility] Start: 05-11-2022 End: 47-00-8799Edxjcpv encounter Madeleine Contreras [facility] Start: 04-28-2022 End: 92-15-8712dzxpcxatetRVMelanie KEEN .Facility:A7Yiswo: 04-08-2022 End: 02-41-0533Dqvtqrlkn to same day surgery Brian Contreras [facility] Start: 04-07-2022 End: 43-18-9506fpygirmfqyVPMelanie KEEN .Facility:U0Qfnaf: 04-02-2022 End: 59-77-2286Lqcxatw encounter Madeleine Contreras [facility] Start: 04-01-2022 End: 70-11-4876lhlggdhahrIR KIM E KNIGHT .Facility:O4Jahfw: 12-02-2021 End: 10-84-6819ttjkbwlusmXD KIM E KNIGHT .Facility:S5Mwgdf: 43-82-3226Be [employer] Dariusz Keen Work Phone: [phone]-Mgcml [facility] 250 DO Work Phone: Start: 10-08-2021 End: 70-81-4200mzdgzxbapfVZZOG PARKERFacility:P3Knwew: 08-25-2021 End: 26-10-6796imizmoonxgDG KIM E KNIGHT .Facility:K1Dukxr: 08-15-2021 End: 47-17-9408fbykddtpmfOO KIM E KNIGHT .Facility:X0Xsjwf: 07-29-2021 End: 39-26-9240upccmxbbvyGQ ANIKA Grossman SMITHFacility:D8Qbozj: 07-23-2021 End: 71-35-2220vesknrpedtGK DARIUSZ KEEN .Facility:L3Ffgmj: 07-20-9910Uk [employer] Dariusz Keen Work Phone: [phone]-Imniv [facility] 250 DO Work Phone: Start: 44-12-4247Ku RenewalRakeshm E Keen Work Phone: [phone]) [phone]-Kikgk [facility] 250 DO Work Phone: Start: 74-62-8097Qbedyh outpatient visit 25 minutesDariusz Keen Work Phone: [phone]-Vullk [facility] 250 DO Work Phone: Start: 09-13-2020 End: 54-39-6327Dgppxpjwea and management of inpatientKIM KNIGHTFacility:[facility] [[email or web address]] Start: 11-09-2019 End: 07-83-0851agrekhuadgVKX KNIGHTFacility:[facility] [[email or web address]]Echocardiogram normalKim E Keen Work Phone: [phone]-Fqvmu [facility] 250 DO Work Phone: Procedures DateProcedureProcedure DetailPerforming ClinicianStart: 85-09-9337Lbomb Strep (POC)Start: 92-01-5991GSPPG Antigen (POC)Start: 04-18-5338Pkjns Strep (POC) Start: 78-90-5575Xzxnpdipjrpljgm of left heartRyan Ben Start: 89-42-3483Jndpcafznitpqco of left heartRyan Ben Start: 78-46-7659Nidwtlugzxxd coronary intervention of anterior descending branch of left coronary arteryTeoan Ben Start: 94-33-4077Tsgdmbtykkn of Left Heart using Low Osmolar ContrastEHAB A ELTAHAWYStart: 41-20-0052GYIJANOXSWT OF MULT COR ART USING L OSM CONTRASTEHAB A ELTAHAWYStart: 95-10-5861MTHBRJT OF CARDIAC SAMPL \T\ PRESSURE, L HEART, PERC APPROACHEHAB A ELTAHAWYStart: 70-03-6473DRGRUXBIUOQEFMT OF RIGHT AND LEFT HEART, TRANSESOPHAGEALYOCASTA BOSWELLppendectomyTeoeri [...] Work Phone: Plan of Treatment DateCare ActivityDetailAuthorStart: 52-88-1172PET, Provider: Navdeep German, Status: Pen, Time: 10:30 AMFUV, Provider: Navdeep German, Status: Pen, Time: 10:30 [facility] Work Phone: Start: 01-00-0873UDR, Provider: Navdeep Greman, Status: Pen, Time: 11:15 AMFUV, Provider: Navdeep German, Status: Pen, Time: 11:15 AM[facility] HeartAn[facility] 250 DO Work Phone: Comprehensive metabolic 1999 panel - Serum or Plasma [facility]Com[facility] 1999 panel - Serum or [facility] HospitalComprehenve metabolic 1999 panel - Serum or [facility] HospitalMG Breast - bilateral Screening [facility]Patient [facility] Work Phone: XR Knee - left 4 [facility] Immunizations Immunization DateImmunizationNotesCare BynolsmeIoctuhnm64-55-7405Kzmbuxz COVID- 19 Vaccine 100 MCG/0.5ML Intramuscular SuspensionKim E Kene Work Phone: [phone]-[facility]09-10-2021Moderna COVID-19 Vaccine 100 MCG/0.5ML Intramuscular SuspensionKim E Keen Work Phone: [phone]-PvhkvMartins Ferry Hospital Payers DatePayer CategoryPayerPolicy [id number] [id number] 2.840.1.022614.3.57[id number] 2..840.1.225863.3.57[id number] 2.16.840.1.267960.3.57[id number] 2..840.1.584638.3.57[id number] 2..840.1.816847.3.57[id number] 2..840.1.040753.3.57[id number] 2.0.1.549281.3.57[id number] 2.0.1.764335.3.57[id number] 2.0.1.001987.3.57[id number] 2.840.1.429555.3.579.2.727 [id number] 1958Medicare [id number] [id number] Social History DateTypeDetailFacilityNo alcohol useNo alcohol useMP-[facility] 250 DO Work Phone: Comment on above:1 pepsi daily.;Start: 04-02-2022 End: 74-21-1126Elurgqk smoking statusNever smoked tobacco (finding)[facility] HospitalTobacco smoking statusNeverCleveland Clinic South Pointe Hospitalex Assigned At [facility] Hospitaltart: 02-11-0534Zkr Assigned At [facility] Ohiotart: 05-13-2024 End: 93-82-2831HdaImtwch (finding)[facility] Medical Equipment Procedure CodeEquipment CodeEquipment Original TextEquipment IdentifierDates Unknown Unknown 04/08/22 Unknown Left Anterior Descending Coronary ArteryFDAStart: 95-81-9401BGJHjcwv: 81-96-0532Gordcae Unknown 04/08/22 Unknown Left Anterior Descending Coronary ArteryFDAStart: 93-39-7817UAMNledp: 90-03-2483Gkbygye Unknown 04/08/22 Unknown Left Anterior Descending Coronary ArteryFDAStart: 15-24-4232DCGTwefd: 70-81-4659Kegbscl Unknown 04/08/22 Unknown Left Anterior Descending Coronary ArteryFDAStart: 26-07-7763RTSEycan: 02-11-8864OPMX STYLE LITE TEST STRIPS -Unknown Unknown 04/08/22 Unknown Left Anterior Descending Coronary ArteryFDAStart: 46-09-1330RAGRonrd: 52-08-0852Bgiqdjn Unknown 04/08/22 Unknown Left Anterior Descending Coronary ArteryFDAStart: 80-26-8888UFRMefmi: 89-27-6120Bjaffcv Unknown 04/08/22 Unknown Left Anterior Descending Coronary ArteryFDAStart: 84-45-5405AYMDsfhb: 91-64-2194Gxlmzcz (Freestyle Lancets) 28 gauge miscStart: 29-31-8330Wqijtqx (Freestyle Lancets) 28 gauge miscStart: 02-29-2024 End: 88-41-2224Onryivs (Freestyle Lancets) 28 gauge miscStart: 03-21-2024 End: 16-54-0361Mucirug (Freestyle Lancets) 28 gauge miscStart: 03-38-2818Phcqoqo (Freestyle Lancets) 28 gauge miscStart: 02-29-2024 End: 18-84-8124Dadiorn (Freestyle Lancets) 28 gauge miscStart: 03-21-2024 End: 92-76-7421Bmrodov (Freestyle Lancets) 28 gauge miscStart: 76-05-1280Lewpkcb (Freestyle Lancets) 28 gauge miscStart: 02-29-2024 End: 01-82-8952Jrujecp (Freestyle Lancets) 28 gauge miscStart: 03-21-2024 End: 03-30-2024 Functional Status UzpxTdslirsiscNevthvCcmvzacw19-23-7722Ebgwcsymvj StatusN/[facility]12-18-2023Functional StatusN/[facility]12-15-2023 Functional StatusN/[facility]06-22-2023Functional Status[facility]01-04-2023Functional StatusN/[facility]12-29-2022Functional StatusL[facility] Clinical Notes 09-17-2020 to 12-16-2024 Note Date & IbyiYoukUahxefka53-26-3726 NoteED Patient Education Note Dentistry Dental Extraction, [...] these instructions at home: Medicines ??? Take posr-wto-hjsrfeq and prescription medicines only as told by [...] your pee (urine) pale yellow. ? Take sizt-fof-zwyhyhj or prescription medicines. ? Eat foods that [...] and water are not available, use hand registered account administrator. ? Change and remove your gauze as [...] is okay: ? Rinse your mouth. ? [place] or floss near your extraction area. You [...] you by your health (more content not included)...[facility]11-26-2024 Evaluation note* Diagnosis Onset Date Resolution Status Admit Date Abdominal bloating acuteNov2023 8:36amElevated glucose levelacuteFebruary 29, 2024 8:36amEssential (primary) hypertensionacuteFebruary 29, 2024 8:36amFacial paresthesiaacuteFebruary 29, 2024 8:36amInfluenza [facility] 2024 9:03am [facility] Work Phone: [phone] 194-807311-26-2024 Evaluation note* Diagnosis Onset Date Resolution Status Admit Date Abdominal bloating acuteFebruary 29, 2024 8:36amElevated glucose levelacuteFebruary 29, 2024 8:36amEssential (primary) hypertensionacuteFebruary 29, 2024 8:36amFacial paresthesiaacuteFebruary 29, 2024 8:36amAcute bacterial tonsillitisacute May 13, 2024 9:03amInfluenza [facility]acM[facility] 2024 9:03am [facility] Work Phone: [phone] Hospital Discharge instructions Patient Education 03/22/2023 11:28:20 CV - Cardiovascular Discharge Instructions (CUSTOM) [place], [place] CARDIOVASCULAR DISCHARGE INSTRUCTIONS Diet: Resume pre-procedure [...] hours post procedure: Actoplus MetGlucophageGlucophage XR GlucovanceAvandametFortamet Zhz-doisyiotwGfczbiLatd-iscphcjcu GlumetzaJanumetMetaglip RiometGlycomet *Minimal pain, soreness and/or discomfort [...] you are interested in smoking cessation, contact [facility] at [phone], ext. [phone]. In the event you are unable to reach your physician, please call [facility] at [phone] and the oil lease operator will assist you. Seek Immediate Medical Care for: Bleeding: Apply continuous pressure to the site and Call 911. Should the arm or leg become cold, numb, blue or white call your physician immediately. Signs of infection are redness, warmth, swelling, increased tenderness, colored drainage, fever or chills Chest pain Follow Up Care 03/19/2023 14:09:21 With:Jairo Contreras Address: [facility] When:05/07/2023 14:45:00 [facility]12-14-2023 Evaluation note* Encounter Date Diagnosis Assessment Notes Treatment Notes Treatment Clinical Notes Mar, Chest pain, unspecified type (IC D-10 - R07.9) Pt agrees to go to ER. No charge for today's visit. Report called to Doris at ER. Has followup w cardio tomorrow in [place]. Alexa states all of her symptoms are very similar to those of her previous heart attack. [employer] Other 08-29-2023 Evaluation note* Encounter Date [...] Stay well hydrated. Nov,oronary artery disease involving [place] coronary artery of [place] heart without angina pectoris (ICD-10 - I25.10)Continue f/u w [facility] [[email or web address]] Cardio [facility] [employer] Other 06-05-2023 Evaluation + Plan note Future Scheduled Tests Laboratory* HgbA1c 09/07/22 * TSH With T4fr Reflex 09/07/22 * CBC w/ Auto Diff 09/07/22 * Comprehensive Metabolic Panel 09/07/22 * Lipid Panel 09/07/22 Radiology* CV Cardiovascular 04/07/22 [facility]01-04-2023 Hospital Discharge instructions Patient Education 04/08/2022 13:08:49 CV - Cardiovascular PCI Discharge Instructions (CUSTOM) [place], [place] Cardiovascular PCI DISCHARGE INSTRUCTIONS Diet: Resume [...] hours post procedure: Actoplus MetGlucophageGlucophage XR GlucovanceAvandametFortamet Erw-hrewmipcnKvtxgvKpah-blvrwcxbv GlumetzaJanumetMetaglip RiometGlycomet Minimal pain, soreness and/or discomfort is expected. If you are prescribed an aspirin and/or antiplatelet (such as Plavix, Brilinta or Effient) do NOT stop taking these medications for any reason without talking to your outreach nurse Site Care: Do not remove dressing for [...] you are interested in smoking cessation, contact [facility] at [phone], ext. [phone]. In the event you are unable to reach your physician, please call [facility] at [phone] and the oil lease operator will assist you. Seek Medicare Care [...] Up Care 04/07/2022 15:40:27 With:Jairo Contreras Address: [address] [place], [place] [address] Business (1) When:04/30/2022 12:15:00 [facility]01-04-2023 Evaluation + Plan noteExtracted from: Title:Procedure Note Heart & VascularAuthor:Ben PARRISH, Jairo RoblesDate: 04/08/22 CAD in [place] artery, (I25.10: Atherosclerotic heart disease of [place] coronary artery without angina pectoris)CAD in [place] artery Orders: aspirin, Tab-Chew, Misc, Once, Stop [...] Transthoracic Complete 05/05/22 * CV Cardiovascular 04/07/22 [facility]06-15-2021 NoteMR#: [id number] [facility] Pt. Name: Alexa Carey Admitted: 09/13/2020 Discharged: [...] nausea, vomiting, and subsequently transferred to the [facility] [[email or web address]] for further workup. Cardiology team consulted. Patient [...] Dunn MD Date Trans: 09/17/2020 04:19 P/mario DN_[id number] cc: Dariusz Keen M.D. [address] [place] [id number] Cross HospitalEvaluation + Plan note Future Appointments Appointment Date:04/30/2022 12:15:00 PM Scheduled Provider:Jairo Contreras MD [facility]oint[facility] Type:Cardiology Follow Up (FT) Future Scheduled Tests Radiology* Echo Transthoracic Complete 04/02/22 [facility] note Future Appointments Appointment Date:05/12/2022 03:15:00 PM Scheduled Provider:Jairo Contreras MD [facility] App[facility] Type:Cardiology Follow Up (FT) Future Scheduled Tests Radiology* CV Cardiovascular 04/07/22 [facility] note Future Appointments Appointment Date:10/12/2022 01:45:00 PM Scheduled Provider:Jairo Contreras MD [facility] Appointment Type:Cardiology Follow Up (FT) Future Scheduled Tests Laboratory* HgbA1c 09/07/22 * TSH With T4fr Reflex 09/07/22 * CBC w/ Auto Diff 09/07/22 * Comprehensive Metabolic Panel 09/07/22 * Lipid Panel 09/07/22 Radiology* CV Cardiovascular 04/07/22 [facility]Evaluation + Plan note Future Appointments Appointment Date:05/07/2023 02:45:00 PM Scheduled Provider:Jairo Contreras MD Location:[facility] Appointment Type:Cardiology Follow Up (FT) Future Scheduled Tests Laboratory* HgbA1c 09/07/22 * TSH With T4fr Reflex 09/07/22 * CBC w/ Auto Diff 09/07/22 * Comprehensive Metabolic Panel 09/07/22 * Lipid Panel 09/07/22 Radiology* CV Cardiovascular 04/07/22 [facility]Evaluation [facility] note Future Appointments Appointment Date:01/11/2024 10:30:00 AM Scheduled Provider:Michelet Velázquez PA-C [facility] Appointment Type:Cardiology Follow Up (FT) [facility] Future Appointments Appointment Date:03/22/2023 09:00:00 AM Scheduled Provider: [facility] App[facility] Type:CV Heart Cath (FT) Appointment Date:05/07/2023 02:45:00 PM Scheduled Provider:Jairo Contreras MD Location:[facility] Appointment Type:Cardiology Follow Up (FT) Future Scheduled Tests Laboratory* HgbA1c 09/07/22 * TSH With T4fr Reflex 09/07/22 * CBC w/ Auto Diff 09/07/22 * Comprehensive Metabolic Panel 09/07/22 * Lipid Panel 09/07/22 Radiology* CV Cardiovascular 03/22/23 * CV Cardiovascular 04/07/22 [facility] HospitalEvaluation noteNo InformationNortFox Chase Cancer Center Marakana Other Evaluation note* Diagnosis Onset Date Resolution Status Essential (primary) hypertension acuteFatigueacuteHigh cholesterolacuteLeft knee painacute [facility] Work Phone: Evaluation note* Diagnosis Onset Date Resolution Status Abdominal bloating acuteEssential (primary) hypertensionacuteFatigueacuteHigh cholesterolacuteLeft knee painacuteOSA (obstructive sleep apnea)acute [facility] Work Phone: Evaluation note* Diagnosis Onset Date Resolution Status Abdominal bloating acuteEssential (primary) hypertensionacuteFatigueacuteHigh cholesterolacuteLeft knee painacuteOSA (obstructive sleep apnea)acuteChronic low back painacuteLumbar radiculopathyacuteLeft knee painacute [facility] Work Phone: Evaluation note* Diagnosis Onset Date Resolution Status Coronary artery disease with angina pect beverly acuteLeft knee painacuteContact with and (suspected) exposure to covid-19 noneactiveSore throatnoneactive [facility] Work Phone: Evaluation note* Diagnosis Onset Date Resolution Status Admit Date Elevated glucose level acuteOctober 2024 8:49amEssential (primary) hypertensionacuteOctober 2024 8:49amHigh cholesterolacuteOctober 2024 8:49amScreening mammogram for breast canceracuteOctober 2024 8:49am [facility] Work Phone: History general Narrative - Reported* Type Description Date Medical History hypertension Medical HistoryCAROTID ARETERY STENOSISMedical HistoryHX OF TIA Medical HistoryBRADY CARDIASurgical HistoryCHOLECYSTECTOMY-2015Surgical HistoryC SECTIONSurgical HistoryTUBAL LIGATIONSurgical HistoryHYSTERECTOMYSurgical HistoryBSOHospitalization HistoryPT HAD TIAOCT 2015 [place] Other History of Present illness Narrative* The [...] medication regimen. She denies medication side effects. [facility] 250 DO Work Phone: Hospital course Narrative No data available for this section [facility] HospitalH[facility] Discharge instructions No data available for this section [facility] HospitalProgress note No data available for this section [facility] HospitalReason for referral (narrative)No reason for referral information availableKettering Health [facility] Work Phone: Summary Purpose Family History Unknown [...] section and content) DATE CREATED AUTHOR 09/22/2020 [facility] DATE CREATED AUTHOR AUTHOR'S ORGANIZ ATION 09/27/2020 [facility] DATE CREATED AUTHOR AUTHOR'S ORGANIZ ATION 03/20/2021 [employer] DATE CREATED AUTHOR AUTHOR'S ORGANIZ ATION 05/25/2021 [facility] DATE CREATED AUTHOR AUTHOR'S ORGANIZ ATION 07/11/2022 [facility] DATE CREATED AUTHOR AUTHOR'S ORGANIZ ATION 12/24/2024 [facility] Patient Care team informatio n (unrecognized [...] BE BASED ON THE PRIMARY CLINICAL RECORDS. [facility]. provides no warranty or guarantee of the accuracy or completeness of information in this document.
--- NOTE | 2025-02-27 01:24 | CA_ITS ---
Patient Name: ALEXA FERNANDEZ MR#: [id number] : 1970 Exam Date: 02/27/2025 Ordering Doctor: VIKTORIA NAYAK ECHOCARDIOGRAM REPORT PROCEDURE: CA ECHO DOPPLER COMPLETE INDICATIONS: Chest pain COMPARISON: None. DESCRIPTION: COMPLETE ECHOCARDIOGRAM Real-time transthoracic echocardiography with 2D, M-mode, spectral and color flow Doppler performed. QUALITY: Technical quality was good. LEFT VENTRICLE: Normal chamber size. Moderate concentric left ventricular hypertrophy. Global left ventricular systolic function is normal. Estimated left ventricular ejection fraction is 60%. LV EF: Normal left ventricular ejection fraction, (>55%). DIASTOLIC: Diastolic function is indeterminate. ATRIAL SEPTUM: Septal closure device is well seated with no shunting by doppler. LEFT ATRIUM: Normal chamber size. RIGHT ATRIUM: Normal chamber size. RIGHT VENTRICLE: Normal chamber size. Normal right ventricular systolic function. TRICUSPID VALVE: Normal mobility and thickness. No stenosis with trivial regurgitation. Mild pulmonary hypertension. The RVSP measures 44 mmHg. MITRAL VALVE: Normal mobility and thickness. No evidence of mitral valve stenosis. There is no mitral annular calcification. Trivial mitral regurgitation. AORTIC VALVE: Normal trileaflet appearance. No visible sclerosis. Normal leaflet mobility. No evidence of aortic valve stenosis. Trivial aortic regurgitation. AORTIC ROOT: Normal diameter and appearance. The aortic root measures 3.3 cm. The ascending aorta is normal in size measuring 2.9 cm. PULMONIC VALVE: Normal thickness and mobility. No stenosis. Trivial regurgitation. PERICARDIUM: No evidence of pericardial effusion. IVC: Collapses with inspiration. The IVC is normal in size measuring 1.7cm. PLEURA: CONCLUSION: 1. Moderate concentric left ventricular hypertrophy with normal systolic function. Estimated LVEF is 60%. 2. Normal right ventricular size and systolic function. 3. No significant valvular dysfunction. 4. Mildly elevated right-sided pressures. RVSP is 44 mmHg. 5. Atrial septal closure device is well-seated with no evidence of shunting by color-flow Doppler. 6. No pericardial effusion. Adult Echocardiography Procedure Report Left Ventricle LVEDD (3.7 - 5.6 cm): 3.85 cm LVESD (2.2 - 4.0 cm): 2.53 cm LVIVS thickness (0.6 - 1.2 cm): 1.53 cm LVPW thickness (0.5 - 1.0 cm): 1.51 cm e': 0.08 m/s E - e': 8.41 LVOT Max Gradient: 2.82 mm[Hg] LVOT Area (cm2): 0.84 m/s Peak Velocity (LVOT): 0.84 m/s Mean Velocity (LVOT): 0.60 m/s LVOT Diameter 2.13 cm Left Ventricular Ejection Fraction: 60 % Left Atrium LA Volume Index (2D A2C): 35.76 ml/m2 Left Atrium Systolic Dimension: 4.05 cm Mitral Valve MV E to A Ratio: 1, 0.95 Mitral Valve A-Wave Peak Velocity: 0.66 m/s Mitral Valve E-Wave Peak Velocity: 0.65 m/s Right Ventricle RV Internal Diastolic Dimension: 3.49 cm Aorta AO Root Diam: 3.25 cm Ascending Ao Diam: 2.94 cm Aortic Valve AoV Area (Peak Zachariah): 2.78 cm2, 2.78 cm2 AoV Area (VTI): 2.76 cm2, 2.76 cm2 Peak Velocity(Antegrade Flow): 1.07 m/s Peak Gradient(Antegrade Flow): 4.61 mm[Hg] Mean Velocity(Antegrade Flow): 0.72 m/s Mean Gradient(Antegrade Flow): 2.48 mm[Hg] Velocity Time Integral: 22.47 cm Tricuspid Valve Peak Velocity (Regurgitant Flow): 1.82 m/s, 2.05 m/s, 3.19 m/s Pulmonic Valve Mean Gradient: 1.19 mm[Hg] Mean Velocity: 0.51 m/s Peak Velocity: 0.73 m/s, 0.75 m/s Peak Gradient: 2.15 mm[Hg], 2.25 mm[Hg] Right Atrium Right Atrium Systolic Pressure: 42.69 ml, 42.69 ml Dictated by: Adalid Keyes M.D. on 02/27/2025 at 21:41 Approved by: Adalid Keyes M.D. on 02/27/2025 at 21:51
[2025-02-27] MEDS: CLONIDINE HCL 0.2 MG TABLET PO (01:49)
[2025-02-27] MEDS: AMITRIPTYLINE HCL 25 MG TABLET 75 MG PO (01:49)
[2025-02-27 05:49] LABS: Hematocrit 42.4 % (36.0-48.0); Hemoglobin 14.1 g/dL (12.0-16.0); Immature Granulocytes Abs Auto 0.01 10^3/uL (0.00-0.03); Immature Granulocytes Pct Auto 0.1 % (0.0-0.5); Lymphocytes Absolute Auto 2.1 10^3/uL (1.2-3.8); Mean Corpuscular HGB Conc 33.3 g/dL (29.9-35.2); Mean Corpuscular Hemoglobin 29.9 pg (26.7-34.0); Mean Corpuscular Volume 89.8 fL (81.0-99.0); Platelet Count 293 10^3/uL (150-450); Red Blood Count 4.72 10^6/uL (4.20-5.40); White Blood Count 7.6 10^3/uL (4.0-11.0)
[2025-02-27 06:17] LABS: Alanine Aminotransferase 30 U/L (14-59); Albumin Globulin Ratio 0.9; Albumin Level 3.3 g/dL (3.4-5.0); Alkaline Phosphatase 125 U/L (46-116); Anion Gap 9.1; Aspartate Amino Transferase 16 U/L (15-37); Blood Urea Nitrogen 10.0 mg/dL (7.0-18.0); Calcium 9.2 mg/dL (8.5-10.1); Carbon Dioxide 30.0 mmol/L (21.0-32.0); Chloride 109 mmol/L (98-107); Cholesterol 130 mg/dL (<=200); Estimated GFR (African America >60 (>=60 mL/min/1.73m^2); Estimated GFR (Non-African Ame 58 (>=60 mL/min/1.73m^2); Globulin 3.5 g/dL; Glucose 131 mg/dL (74-106); HDL Cholesterol 37 mg/dL (40-60); Magnesium 2.1 mg/dL (1.8-2.4); Potassium 4.1 mmol/L (3.5-5.1); Sodium 144 mmol/L (136-145); Total Protein 6.8 g/dL (6.4-8.2); Triglycerides 110 mg/dL (<=150); VLDL CHOLESTEROL 22.0 mg/dL
--- NOTE | 2025-02-27 08:00 | ECG_ITS ---
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 Measurements Intervals [place] Rate: 61 P: 72 TN: 158 QRS: 96 QRSD: 80 T: 69 QT: 458 QTc: 461 Interpretive Statements 1100 Sinus rhythm 4068 Nonspecific [place] abnormality 7102 Moderate right axis deviation 8304 Long QTc interval 9150 abnormal ECG Compared to ECG 02/26/2025 22:06:34 Right-axis deviation now present ST (T wave) deviation no longer present Possible ischemia no longer present Electronically Signed On 02-27-2025 6:38:01 EST by GARY MILIAN M.D.
--- NOTE | 2025-02-27 08:50 | CM.NOTE ---
Rounds made with Dr. Carrera, discussed plan of care with pt. Pt will have cardiac echo today and cardiology consult for further recommendations.
[2025-02-27] MEDS: CITALOPRAM HYDROBROMIDE 20 MG TABLET 40 MG PO (08:52)
[2025-02-27] MEDS: ATENOLOL 50 MG TABLET PO (08:52)
[2025-02-27] MEDS: CLOPIDOGREL BISULFATE 75 MG TABLET PO (08:52)
[2025-02-27] MEDS: ASPIRIN 81 MG TABLET.DR PO (08:52)
[2025-02-27] MEDS: ATORVASTATIN CALCIUM 40 MG TABLET PO (08:52)
[2025-02-27] MEDS: LOSARTAN POTASSIUM 50 MG TABLET 100 MG PO (08:53)
--- NOTE | 2025-02-27 09:52 | CT_ITS ---
[address] [address] Patient Name: ALEXA FERNANDEZ MRN: [id number] date: 1970 Sex: F Assigned Patient Location: Current Patient Location: Accession/Order Number: [id number] Exam Date: 02/27/2025 12:12 Report Date: 02/27/2025 18:03 At the request of: VIKTORIA NAYAK MD Procedure: CT angio chest CTA chest CLINICAL DATA: Chest pain, hypertensive emergency, rule out dissection. TECHNIQUE: Intravenous contrast-enhanced CT angiography of the chest was performed. Axial, sagittal, coronal, and 3D-dimensional reconstructions were created and reviewed. These CT exams were performed using one or more of the following dose reduction techniques: Automated exposure control, adjustment of the mA and/or kV according to patient size, or use of iterative reconstruction technique. COMPARISON: Chest x-ray 02/26/2025. FINDINGS: Chest: Mediastinum:No noncontrast images were obtained to evaluate for intramural hematoma. Cardiomegaly. LAD stent. Atrial septal occlusion device. No pericardial effusion. No pathologic adenopathy. Small hiatal hernia. Aorta is normal in caliber without dissection flap.. No central or lobar pulmonary artery emboli. Lungs:Hypoventilatory changes. No focal airspace opacity effusion or pneumothorax. Abd: Low attenuation liver suggestive of fatty infiltration.[ Soft tissues/Bones: Degenerative changes. No suspicious osseous lesion. [] CT/CT angio chest IMPRESSION: Cardiomegaly with evidence of LAD stenting. No findings of aortic dissection flap or central pulmonary emboli.. Impression dictated by: Jonh Klein M.D. 02/27/2025 6:03 PM Dictation Location: [place] [address] Electronically authenticated by: [id number] Y Date: 02/27/2025 18:03
--- NOTE | 2025-02-27 09:54 | PM.HP ---
HPI H&P: HPI History of Present Illness Chief complaint: CHEST PAIN, ACCELERATED HTN Narrative: Mrs Carey is a 54-year-old female with a history of hypertension, hyperlipidemia and IN. She came in with chest pain. Substernal started at rest. No shortness of breath. No radiation. No nausea or vomiting. There is intensity lasting for about 1 to 2 hours. No abdominal pain. No cough or hemoptysis. No shortness of breath. Patient had an IN in 2000 for which she required 2 stent. Patient has had on and off chest pain since then but not described as when she had yesterday Opioid HPI Opioid Management Most Recent Pain and Opioid Data: Last Pain Scale 4 12/08/24, 11:51 Last Pain Assessment Today, 09:02 Last MAR Pain Assessment 02/26/25, 22:35 Last ORT Total Score 1 Today, 01:09 Last ORT Risk Category Low Risk Today, 01:09 Review of Systems ROS Status of ROS 10 or more systems reviewed and unremarkable except as noted in history and below PFSH PFS Medical History (Updated 02/27/25 @ 09:58 by Hay Carrera MD) Hysterectomy planned Myocardial infarction ?I21.9 - Acute myocardial infarction, unspecified (ICD-10) Hypertension ?I10 - Essential (primary) hypertension (ICD-10) Hypertens NOS-del w/ complication ?O16.5 - Unspecified maternal hypertension, complicating the puerperium (ICD-10) Hypertension affecting ?O16.9 - Unspecified maternal hypertension, unspecified trimester (ICD-10) Surgical History (Updated 02/27/25 @ 01:11 by Penny Kay RN) Cholecystotomy with removal of foreign body from gallbladder performed ?Z98.890 - Other specified postprocedural states (ICD-10) ?Z87.19 - Personal history of other diseases of the digestive system (ICD-10) H/O heart artery stent ?Z95.5 - Presence of coronary angioplasty implant and graft (ICD-10) Family History (Updated 02/27/25 @ 01:13 by Penny Kay RN) Grandfather Family history of cancer Mother Family history of cancer Family history of diabetes mellitus Family history of stroke Father Family history of hypertension Family history of myocardial infarction Brother Family history of myocardial infarction Social History (Updated 02/27/25 @ 01:14 by Penny Kay RN) Within the past year, how often did you have a drink containing alcohol: never Within the past year, how often did you have six or more drinks on one occasion: never Score interpretation: A score less than 3 is consistent with normal alcohol consumption. Smoking status: Never smoker Non-prescribed substance use: denies use Previous occupational history: disable Known occupational exposures/hazards: No Highest level of school completed/degree received: Associate degree: academic program In a typical week, how many times do you talk on the telephone with family, friends, or neighbors: 3 or more times per week How often do you get together with friends or relatives: 3 or more times per week How often do you attend episcopalian or christian services: 4 or more times per year Little interest or pleasure in doing things: not at all Feeling down, depressed, or hopeless: not at all Feel stressed/tense/nervous/anxious/difficulty sleeping: not at all Meds Home Medications and Allergies Home Medications ?Medication ?Instructions ?Recorded ?Confirmed ?Type amitriptyline 75 mg tablet 75 mg PO .qhs 12/08/24 02/27/25 History aspirin 81 mg tablet,delayed 81 mg PO DAILY 12/08/24 02/26/25 History release atenolol 50 mg tablet 50 mg PO DAILY 12/08/24 02/27/25 History atorvastatin 40 mg tablet 40 mg PO DAILY 12/08/24 02/26/25 History citalopram 40 mg tablet 40 mg PO DAILY 12/08/24 02/26/25 History clonidine HCl 0.2 mg tablet 0.2 mg PO Q12H 12/08/24 02/26/25 History clopidogrel 75 mg tablet 75 mg PO DAILY 12/08/24 02/26/25 History losartan 100 mg tablet 100 mg PO DAILY 02/26/25 02/26/25 History nitroglycerin 0.4 mg sublingual 0.4 mg sublingual Q5M PRN chest 02/26/25 02/27/25 History tablet pain Allergies Allergy/AdvReac Type Severity Reaction Status Date / Time lisinopril AdvReac Mild Cough Verified 12/08/24 11:57 Exam Narrative Exam Narrative: [pt is awake and alert. oriented to place, time and person HEENT: [place] conjunctiva and NL buccal mucosa Neck: Supple, no tenderness Endocrine: No Thyromegaly. Vascular: No JVD or carotid bruit. Lymphatic: No cervical lymphadenopathy. Symmetrical radial pulses Chest: CTA no DTP. Heart RRR, no extra sound or murmur. Abd: Soft, no tenderness, no rebound and no rigidity. Increase abd girth therefore clinically I could not exclude the possibility of intra abd mass or organomegaly. LE: No cyanosis or clubbing, no varices or edema. Neuro: A A O. Nl speech, comprehension and attention. Nl and symetrical motor and tone examination through out. []] Constitutional Vital Signs, click to edit/add: Last Vital Signs Temp 97.9 F 02/27/25 07:39 Pulse 60 02/27/25 07:53 Resp 16 02/27/25 07:39 BP 118/61 02/27/25 07:39 Pulse Ox 97 02/27/25 07:39 O2 Del Method Room Air 02/27/25 07:39 Results Labs Labs: Short CBC 02/26/25 02/27/25 Range/Units 22:15 05:33 WBC 8.5 7.6 (4.0-11.0) 10^3/uL Hgb 15.1 14.1 (12.0-16.0) g/dL Hct 45.5 42.4 (36.0-48.0) % Plt Count 348 293 (150-450) 10^3/uL BMP 02/26/25 02/27/25 22:15 05:33 Sodium 141 144 Potassium 3.5 4.1 Chloride 105 109 H Carbon Dioxide 31.0 30.0 BUN 10.0 10.0 Creatinine 0.92 1.00 Glucose 137 H 131 H Calcium 9.6 9.2 Liver Function 02/26/25 02/27/25 Range/Units 22:15 05:33 Total Bilirubin 0.5 0.4 (0.2-1.0) mg/dL AST 21 16 (15-37) U/L ALT 36 30 (14-59) U/L Alkaline Phosphatase 150 H 125 H (46-116) U/L Albumin 4.0 3.3 L (3.4-5.0) g/dL Assessment and Plan Assessment and Plan (1) Hypertensive urgency: (2) Chest pain: Plan Hypertensive urgency 220/110 Unknown trigger. No prior similar episode. Patient is on a clonidine at home. This could be related to rebound hypertension Patient stated that she has been taking her medications Patient was given few doses of hydralazine intravenously. Blood pressure now is under control. If patient starts having recurrent episode of hypertensive urgency she would need to have workup for secondary hypertension including but not limited to sleep apnea, renal artery stenosis, pheochromocytoma or hyperaldosterenemia Chest pain. Presenting EKG showed subtle ST T changes in the inferior and lateral leads. Follow-up EKG showed resolution of changes 3 troponins are negative History of IN in 2020 for which patient had [address] Mack. Patient is on beta-benjamin, ARB, dual antiplatelet therapy. No clinical evidence of acute IN but this could be angina. Given her hypertensive urgency, I could not exclude the possibility of subtle aortic dissection. Requested CT angio of the chest. My clinical suspicion of PE is low. Saturation 97% on room air. No tachypnea. No shortness of breath Echocardiogram to see if patient has any regional motion abnormality or significant valvular disease Cardiac consultation to evaluate her chest pain and to provide further advice and recommendations. Patient may need to have stress test or other type of ischemic evaluation Cardiovascular care will be deferred to be addressed by cardiology in terms of type of needed testing and timing of these tests Borderline diabetes Recent A1c 6.2 Continue to encourage patient to watch her diet and continue with lifestyle modification and exercise. Hyperlipidemia, depression Continue atorvastatin and citalopram
[2025-02-27] MEDS: 0.9 % SODIUM CHLORIDE 1,000 ML 250 ML IV (10:03)
--- NOTE | 2025-02-27 12:50 | CM.NOTE ---
Medicare Outpatient Observation Notice discussed with pt, pt verbalizes understanding and signs paper. Original given to pt and copy placed on pt's chart.
--- NOTE | 2025-02-27 15:23 | PM.CACN ---
History of Present Illness History of Present Illness Consult date: 02/27/25 Requesting physician: Hay Carrera Consult reason: chest pain Chief complaint: CHEST PAIN, ACCELERATED HTN Narrative: 54-year-old female with a history of Non obstructive CAD (Cath 06/01/2019 @[facility] by Dr Longoria), HTN, HLD who is alos known to have PFO has been seen by Dr Keyes in our clinic presents with CP. She took 3 nitroglycerin. The first nitroglycerin helped her but the second 2 did not change her pain and there was associated dyspnea She saw her assistant winemaker, Dr. Mack at [facility] on 02/15/2025. She maintains compliance with her medications. She denies any abdominal pain or back pain. She does not have any lower extremity pain or swelling. Since admission her blood work has revealed normal troponin and EKG reveals normal sinus rhythm with no evidence of acute ischemia. [facility] Medical History Hysterectomy planned Myocardial infarction ?I21.9 - Acute myocardial infarction, unspecified (ICD-10) Hypertension ?I10 - Essential (primary) hypertension (ICD-10) Hypertens NOS-del w/ complication ?O16.5 - Unspecified maternal hypertension, complicating the puerperium (ICD-10) Hypertension affecting ?O16.9 - Unspecified maternal hypertension, unspecified trimester (ICD-10) Surgical History Cholecystotomy with removal of foreign body from gallbladder performed ?Z98.890 - Other specified postprocedural states (ICD-10) ?Z87.19 - Personal history of other diseases of the digestive system (ICD-10) H/O heart artery stent ?Z95.5 - Presence of coronary angioplasty implant and graft (ICD-10) Family History Grandfather Family history of cancer Mother Family history of cancer Family history of diabetes mellitus Family history of stroke Father Family history of hypertension Family history of myocardial infarction Brother Family history of myocardial infarction Social History Within the past year, how often did you have a drink containing alcohol: never Within the past year, how often did you have six or more drinks on one occasion: never Score interpretation: A score less than 3 is consistent with normal alcohol consumption. Smoking status: Never smoker Non-prescribed substance use: denies use Previous occupational history: disable Known occupational exposures/hazards: No Highest level of school completed/degree received: Associate degree: academic program In a typical week, how many times do you talk on the telephone with family, friends, or neighbors: 3 or more times per week How often do you get together with friends or relatives: 3 or more times per week How often do you attend scientology or jehovah's witness services: 4 or more times per year Little interest or pleasure in doing things: not at all Feeling down, depressed, or hopeless: not at all Feel stressed/tense/nervous/anxious/difficulty sleeping: not at all Meds Home Medications and Allergies Home Medications ?Medication ?Instructions ?Recorded ?Confirmed ?Type amitriptyline 75 mg tablet 75 mg PO .qhs 12/08/24 02/27/25 History aspirin 81 mg tablet,delayed 81 mg PO DAILY 12/08/24 02/26/25 History release atenolol 50 mg tablet 50 mg PO DAILY 12/08/24 02/27/25 History atorvastatin 40 mg tablet 40 mg PO DAILY 12/08/24 02/26/25 History citalopram 40 mg tablet 40 mg PO DAILY 12/08/24 02/26/25 History clonidine HCl 0.2 mg tablet 0.2 mg PO Q12H 12/08/24 02/26/25 History clopidogrel 75 mg tablet 75 mg PO DAILY 12/08/24 02/26/25 History losartan 100 mg tablet 100 mg PO DAILY 02/26/25 02/26/25 History nitroglycerin 0.4 mg sublingual 0.4 mg sublingual Q5M PRN chest 02/26/25 02/27/25 History tablet pain Allergies Allergy/AdvReac Type Severity Reaction Status Date / Time lisinopril AdvReac Mild Cough Verified 12/08/24 11:57 Exam Narrative Exam Narrative: Vital signs and Nursing Notes reviewed: Pt is afebrile with a normal pulse, blood pressure is elevated 220/122, she is not hypoxic with pulse ox of 99% on room air General: Awake, alert, oriented, no acute distress, lying comfortably on the stretcher HEENT: Normocephalic atraumatic, mucous membranes are moist and pink, eyes are clear, normal conjunctiva, vision is grossly intact, posterior pharynx is normal in appearance. severe dental decay appreciated Neck: Supple, no meningeal signs, no JVD Chest: Lungs are clear to auscultation with good air entry, there is no wheezing rhonchi or rales appreciated no accessory muscle use, patient is speaking in complete sentences-no chest wall tenderness to palpation CVS: Regular rate and rhythm S1-S2, no murmurs rubs or gallops, pulses are brisk and equal bilaterally ABD: Soft, nondistended, nontender, no rebound guarding or rigidity, bowel sounds are normal, no pulsatile masses appreciated Extremities: Moving all extremities, no lower extremity tenderness or swelling noted, negative Homans' sign, pulses are brisk and equal bilaterally Skin: Normal in appearance without rash,pallor, petechiae or purpura Neuro: No focal deficits Constitutional Vital Signs, click to edit/add: Last Vital Signs Temp 99.2 F 02/27/25 12:00 Pulse 69 02/27/25 14:00 Resp 16 02/27/25 12:00 BP 130/75 02/27/25 12:00 Pulse Ox 95 02/27/25 12:00 O2 Del Method Room Air 02/27/25 12:00 Results Labs and Meds Lab results: Cardiac Enzymes 02/26/25 02/27/25 Range/Units 22:15 05:33 AST 21 16 (15-37) U/L Coagulation 02/26/25 Range/Units 22:15 PT 10.1 (9.0-11.6) sec Lipids 02/27/25 Range/Units 05:33 Triglycerides 110 (<=150) mg/dL Cholesterol 130 (<=200) mg/dL HDL Cholesterol 37 L (40-60) mg/dL Cholesterol/HDL Ratio 3.5 CBC 02/26/25 02/27/25 Range/Units 22:15 05:33 WBC 8.5 7.6 (4.0-11.0) 10^3/uL RBC 5.10 4.72 (4.20-5.40) 10^6/uL Hgb 15.1 14.1 (12.0-16.0) g/dL Hct 45.5 42.4 (36.0-48.0) % Plt Count 348 293 (150-450) 10^3/uL Neut # (Auto) 5.1 4.5 (1.4-6.5) 10^3/uL Lymph # (Auto) 2.3 2.1 (1.2-3.8) 10^3/uL [place] # (Auto) 0.8 0.8 (0.3-0.8) 10^3/uL Eos # (Auto) 0.1 0.2 (0.0-0.7) 10^3/uL Baso # (Auto) 0.0 0.0 (0.0-0.1) 10^3/uL Comprehensive Metabolic Panel 02/26/25 02/27/25 Range/Units 22:15 05:33 Sodium 141 144 (136-145) mmol/L Potassium 3.5 4.1 (3.5-5.1) mmol/L Chloride 105 109 H (98-107) mmol/L Carbon Dioxide 31.0 30.0 (21.0-32.0) mmol/L BUN 10.0 10.0 (7.0-18.0) mg/dL Creatinine 0.92 1.00 (0.55-1.02) mg/dL Glucose 137 H 131 H (74-106) mg/dL Calcium 9.6 9.2 (8.5-10.1) mg/dL AST 21 16 (15-37) U/L ALT 36 30 (14-59) U/L Alkaline Phosphatase 150 H 125 H (46-116) U/L Total Protein 7.9 6.8 (6.4-8.2) g/dL Albumin 4.0 3.3 L (3.4-5.0) g/dL Intake and Output 02/26/25 02/27/25 02/27/25 23:59 07:59 15:59 Intake Total 1000 / 1000 Output Total 300 / 300 Balance -300 / -300 1000 / 1000 Intake: IV 1000 / 1000 0.9 % Sodium Chloride 1,000 ml 1000 / 1000 @ 250 mls/hr IV .Q4H BERNARDO Rx#: [id number] Output: Urine 300 / 300 Other: # Unmeasured Voids 1 Weight 90.718 kg 95.9 kg Imaging and Cardiology Cardiac cath: report reviewed (Left main the vessel was visualized by angiography is moderate in size and angiographically normal. Left anterior descending: Vessel was visualized angiographically and is moderate in size. iFR of mid LAD lesion shows a value of 0.94 which is not significant. The lesion appeared to be approximatel) Assessment and Plan Assessment and Plan (1) Chest pain: Assessment and Plan: Current EKG does not show any evidence of ischemia and given that the troponin is negative and the past catheterization showing no evidence of significant CAD, it would be reasonable to continue with medical management. Her medication can be optimized to include Imdur 60 mg once daily to start with. Continue with rest factor modification with statin and aspirin. (2) Hypertensive urgency: Assessment and Plan: Blood pressure is reasonably controlled now and would agree with current management Plan His symptoms of chest pain keeps persisting, repeat cardiac catheterization would be in order
--- NOTE | 2025-02-28 07:23 | PM.DS1 ---
DS: Providers Provider Date of admission: 02/27/25 00:51 Primary care physician: Analilia Young MD Consults: 02/27/25 Consult to Cardiology Routine Reason for consultation: CP DS: Diagnosis Discharge Diagnosis (1) Chest pain: (2) Hypertensive urgency: Plan As listed above, below and others that are not listed DS: Summary Hospital Course Hospital Course: Mrs Carey is a 54-year-old female who came in with chest pain. She was found to have the following: Hypertensive urgency 220/110 Unknown trigger. No prior similar episode. Patient is on a clonidine at home. This hypertensive urgency could be related to rebound hypertension Patient stated that she has been taking her medications Patient was given few doses of hydralazine intravenously. Blood pressure now is under control. If patient starts having recurrent episode of hypertensive urgency she would need to have workup for secondary hypertension including but not limited to sleep apnea, renal artery stenosis, pheochromocytoma or hyperaldosterenemia My recommendation is to discontinue clonidine to prevent or reduce risk of hypertensive rebound instead I added amlodipine 2.5 mg daily for blood pressure control and also for antianginal benefit. Chest pain. Presenting EKG showed subtle ST T changes in the inferior and lateral leads. Follow-up EKG showed resolution of changes 3 troponins are negative History of OR in 2020 for which patient had [address] Mack. Patient is on beta-benjamin, ARB, dual antiplatelet therapy. Patient subsequently had cardiac cath in 2022 which showed stable CAD. No clinical evidence of acute OR but this could be angina. Given her hypertensive urgency, I could not exclude the possibility of subtle aortic dissection. Requested CT angio of the chest. CAT scan came back negative for aortic dissection or pulmonary embolism. My clinical suspicion of PE is low. Saturation 97% on room air. No tachypnea. No shortness of breath Echocardiogram to see if patient has any regional motion abnormality or significant valvular disease. Echocardiogram showed normal ejection fraction. No regional motion abnormality or significant valvular disease Cardiac consultation to evaluate her chest pain and to provide further advice and recommendations. Patient may need to have stress test or other type of ischemic evaluation Cardiovascular care will be deferred to be addressed by cardiology in terms of type of needed testing and timing of these tests. Patient was seen by bottoming room supervisor who cleared the patient to be discharged home with an outpatient stress test. He recommended the addition of Imdur 60 mg daily which I added already. I also added amlodipine 2.5 mg daily for blood pressure control replacing clonidine as listed above and also for antianginal benefit. Cardiology team will arrange for patient to have an outpatient stress test. Patient will be instructed to return back to the emergency room with any recurrent chest pain or discomfort. Borderline diabetes Recent A1c 6.2 Continue to encourage patient to watch her diet and continue with lifestyle modification and exercise. Hyperlipidemia, depression Continue atorvastatin and citalopram Patient has multiple complex medical issues as listed above and others that are not listed. All appear to be stable. Patient is feeling well. Chest pain-free. Serial troponins are negative. Patient was cleared by bottoming room supervisor to be discharged home. CT of the chest is negative. Echocardiogram is unremarkable. At this time, I do not have any clear or strong clinical justification to extend inpatient hospitalization. Patient however will require close and frequent monitoring as well as additional work-up, investigation and therapeutic intervention that could take place from this point on post discharge. That is to prevent relapse, decompensation, rehospitalization and other medical implications. Discharge medications as listed are not final or set in stone. Primary care doctor and other out patient providers will need to titrate and adjust medications as soon as the first post discharge visit based on clinical progression, vitals signs, volume status and other related organs function. I instructed patient to ask her primary care doctor to obtain [facility] record entirely to address abnormalities seen on labs and imaging that I have and have not addressed during this hospitalization, follow-up on pending blood work, imaging and pathology is if available and to follow-up on needed medical care in the outpatient setting. Time Spent with Patient Time attestation: Total time spent providing and/or coordinating discharge services: Exam Constitutional Vital Signs, click to edit/add: Last Vital Signs Temp 98.5 F 02/27/25 16:00 Pulse 80 02/27/25 17:52 Resp 16 02/27/25 16:00 BP 123/73 02/27/25 16:00 Pulse Ox 92 L 02/27/25 16:00 O2 Del Method Room Air 02/27/25 16:00 Discharge Plan Discharge Disposition: Home, Self-Care Condition: Fair Discharge Medications: New amlodipine 2.5 mg tablet 2.5 mg PO DAILY Qty: 30 1RF isosorbide mononitrate 60 mg tablet extended release 24 hr 60 mg PO DAILY Qty: 30 1RF Continued amitriptyline 75 mg tablet 75 mg PO .qhs aspirin 81 mg tablet,delayed release (DR/EC) 81 mg PO DAILY atenolol 50 mg tablet 50 mg PO DAILY atorvastatin 40 mg tablet 40 mg PO DAILY citalopram 40 mg tablet 40 mg PO DAILY clopidogrel 75 mg tablet 75 mg PO DAILY nitroglycerin 0.4 mg tablet, sublingual 0.4 mg sublingual Q5M PRN (Reason: chest pain) losartan 100 mg tablet 100 mg PO DAILY Discontinued clonidine HCl 0.2 mg tablet 0.2 mg PO Q12H Print Language: Chinese Patient Instructions: Amlodipine (By mouth), Isosorbide Mononitrate (By mouth), Chest Pain (DC), Hypertension (DC) Activity Restrictions/Additional Instructions: Please follow up with primary care doctor on 03/05 at 1 PM Please report to ER or call 911 if you develp chest pain. We will arrange for you to have a stress test and call you with details. Forms: Portal Instructions Follow Up Appointments: Dr Young, Wednesday March 05, 2025 at 1:00 Discharge Date/Time: 02/27/25 20:02
--- NOTE | 2025-02-28 10:05 | CM.NOTE ---
[facility] is going to call the patient and schedule her outpatient stress test
--- NOTE | 2025-02-28 15:00 | CM.DCFOLLOWU ---
1st attempt 02/28/25, no answer
--- NOTE | 2025-03-01 07:45 | P.EN_ITS ---
Event Note Event Note: We confirmed with the [facility] office that the office will arrange for stress test and call patient to provide information needed
--- NOTE | 2025-03-01 07:45 | PM.EN ---
Event Note Event Note: We confirmed with the [facility] office that the office will arrange for stress test and call patient to provide information needed
== END 2025-02-27 20:02 | disposition home or self-care (01) ==
LOC: ER 02-27 00:33 → MS 02-27 00:57
PROVIDERS: Admitting Provider Internal Medicine; Emergency Provider Emergency Medicine; PCP Family Medicine; Visit Provider Internal Medicine
DX: R07.9 Chest pain, unspecified (principal); I16.0 Hypertensive urgency; R06.02 Shortness of breath; I25.10 Atherosclerotic heart disease of native coronary artery without angina pectoris; Z95.5 Presence of coronary angioplasty implant and graft; I25.2 Old myocardial infarction; I10 Essential (primary) hypertension; R73.03 Prediabetes; E78.5 Hyperlipidemia, unspecified; F32.A Depression, unspecified; Z79.899 Other long term (current) drug therapy; Q21.12 Patent foramen ovale
CPT/HCPCS: 36415; 71045; 71275; 80053; 80061; 83735; 83880; 84484; 85025; 85610; 93005; 93306; 93356; 96374; 96375; 96376; 99285; G0378; J0360; J2270; J2405; Q9967